=== PATIENT | female | born 1985 | race Caucasian/White ===

== ENCOUNTER 2023-08-10 15:36 | Emergency (ER) | payer OTHER, SELFPAY ==
[2023-08-10 15:41] VITALS: BP 143/94; PULSE 95; TEMP 37.2; O2SAT 98; BMI 43.3
--- NOTE | 2023-08-10 15:49 | CT_ITS ---
[address] [address] Patient Name: MORRIS TAN MRN: [id number] date: 1985 Sex: F Assigned Patient Location: ER Current Patient Location: Accession/Order Number: [id number] Exam Date: 08/10/2023 16:25 Report Date: 08/10/2023 17:01 At the request of: HANNAH MURRAY Procedure: CT abdomen pelvis w con EXAM: CT abdomen pelvis w con HISTORY: Abdominal pain, vomiting COMPARISON: None. TECHNIQUE: Axial CT imaging was performed through the abdomen and pelvis with intravenous contrast. Multiplanar reformats were performed. Dose reduction techniques were achieved by using automated exposure control and/or adjustment of mA and/or kV according to patient size and/or use of iterative reconstruction technique. FINDINGS: Lung bases: Lung bases are clear. No pleural effusion. GI upper: Small hiatal hernia. Circumferential wall thickening of the pyloric antrum, representing gastritis. Liver: Normal size and contour. Gallbladder: No significant abnormality. No cholelithiasis. Biliary system: No intra or extrahepatic biliary ductal dilatation. Spleen: Normal size. Pancreas: Unremarkable. Adrenal glands: Normal adrenal glands. Kidneys/ureters: Normal contours. No hydronephrosis. No nephrolithiasis or ureterolithiasis. Vessels: No aneurysm. Lymph Nodes: Subcentimeter gastrohepatic and periportal lymph nodes. Small bowel: No wall thickening or dilatation. Colon: No wall thickening or dilatation. Appendix: No findings of appendicitis. Peritoneal cavity: No free fluid or pneumoperitoneum. Lower : Unremarkable. Bones: No acute bony abnormality. Soft tissues: No acute finding. Additional findings: None. CT/CT abdomen pelvis w con IMPRESSION: Circumferential wall thickening of the pyloric antrum, representing gastritis. Correlation with upper GI endoscopy is recommended. Electronically authenticated by: JANET HALE Date: 08/10/2023 17:01
--- NOTE | 2023-08-10 15:49 | ED.GENADUL1 ---
HPI HPI - General Adult General Chief complaint: Abdominal Pain Stated complaint: Abdominal Pain, Nausea/Vomiting Time Seen by Provider: 08/10/23 15:40 Source: patient Mode of arrival: walk-in History of Present Illness HPI narrative: Patient is a 38-year-old female who presents to the emergency department for 2-day history of vomiting and diffuse abdominal pain. She states she has not been able to keep anything down. She denies fevers, upper respiratory symptoms, diarrhea. No sick contacts in the home. She denies any history of acid reflux, ulcers or previous abdominal surgeries. She states she feels in burning feeling in her throat from vomiting. No urinary symptoms. Related Data Home Medications ?Medication ?Instructions ?Recorded ?Confirmed aripiprazole 5 mg tablet 5 mg PO DAILY 08/10/23 08/10/23 cariprazine 4.5 mg capsule 4.5 mg PO DAILY 08/10/23 08/10/23 (Vraylar) dextromethorphan IR 45 1 tab PO BID 08/10/23 08/10/23 mg-bupropion ER 105 mg biphasic tablet (Auvelity) mirtazapine 45 mg tablet 45 mg PO QPM 08/10/23 08/10/23 Previous Rx's ?Medication ?Instructions ?Recorded ondansetron 4 mg disintegrating 4 mg PO Q6H PRN nausea and 08/10/23 tablet vomiting #12 tabs pantoprazole 40 mg tablet,delayed 40 mg PO DAILY #7 tabs 08/10/23 release (Protonix) sucralfate 1 gram tablet (Carafate) 1 g PO Q6H PRN abdominal pain #12 08/10/23 tabs Allergies Allergy/AdvReac Type Severity Reaction Status Date / Time cefaclor [From Ceclor] Allergy Severe Unknown Verified 08/10/23 15:44 duloxetine [From Cymbalta] Allergy Severe Unknown Verified 08/10/23 15:44 Opioid HPI Opioid Management Most Recent Opioid Data: Ur Phencyclidine Scrn Negative (NEGATIVE) 08/10/23 15:50 Review of Systems ROS Constitutional Denies: fever or chills Ears, nose, mouth, and throat Denies: throat pain or nasal congestion Respiratory Denies: shortness of breath Gastrointestinal Reports: abdominal pain, nausea and vomiting; Denies: diarrhea Musculoskeletal Denies: back pain Integumentary/Breast Denies: rash Neurological Denies: headache Hematologic/Lymphatic Denies: easy bruising or easy bleeding Exam Narrative Exam Narrative: Gen.: Awake, alert, in no distress Head: Normocephalic, atraumatic ENT: Moist mucous membranes Respiratory: No respiratory distress, lungs clear bilaterally Cardio: Regular rate and rhythm Gastrointestinal: Abdomen is soft, nondistended and Diffusely mildly tender to palpation with no guarding or rebound Extremities: Moves extremities equally Psych: Normal mood and affect Neuro: No focal neuro deficit Skin: Warm, dry, intact Constitutional Vital Signs, click to edit/add: Last Vital Signs Temp 98.9 F 08/10/23 15:41 Pulse 82 08/10/23 17:26 Resp 16 08/10/23 17:26 BP 140/90 08/10/23 17:26 Pulse Ox 100 08/10/23 17:26 O2 Del Method Room Air 08/10/23 16:40 Course Vital Signs Vital signs: Vital Signs Temperature 98.9 F 08/10/23 15:41 Pulse Rate 95 H 08/10/23 15:41 Respiratory Rate 18 08/10/23 15:41 Blood Pressure 143/94 H 08/10/23 15:41 Pulse Oximetry 98 08/10/23 15:41 Oxygen Delivery Method Room Air 08/10/23 15:41 Temperature 98.9 F 08/10/23 15:41 Pulse Rate 82 08/10/23 17:26 Respiratory Rate 16 08/10/23 17:26 Blood Pressure 140/90 08/10/23 17:26 Pulse Oximetry 100 08/10/23 17:26 Oxygen Delivery Method Room Air 08/10/23 16:40 Medical Decision Making MDM Narrative Medical decision making narrative: Medicated with IV fluids, Zofran, Protonix. She had improvement of symptoms. She had no episodes of emesis in the ER. She was noted to have leukocytosis on lab work and hypokalemia with potassium of 2.8. She tolerated oral potassium with no difficulty. CT shows gastritis with no other acute process. Patient is discharged home on Carafate, Protonix and Zofran. PCP referral given and work note provided. She states she feels better. She was encouraged to follow clear liquid diet, occasional crackers. Follow-up with PCP and return to the ER if symptoms change or worsen. Vital signs are stable and abdomen is soft and benign at discharge SUPERVISED APC VISIT, PHYSICIAN ATTESTATION: Based on the medical record the care appears appropriate. ? Medical Records Medical records reviewed: Yes I reviewed the patient's medical records Lab Data Lab results reviewed: Yes I reviewed the patient's lab results Labs: Lab Results 08/10/23 08/10/23 Range/Units 15:47 15:50 WBC 16.7 H (4.0-11.0) 10^3/uL RBC 5.34 (4.20-5.40) 10^6/uL Hgb 16.3 H (12.0-16.0) g/dL Hct 48.2 H (36.0-48.0) % MCV 90.3 (81.0-99.0) fL MCH 30.5 (26.7-34.0) pg MCHC 33.8 (29.9-35.2) g/dL RDW 12.4 (11.0-15.0) % Plt Count 392 (150-450) 10^3/uL MPV 9.9 (9.5-13.5) fL Seg Neuts % (Manual) 60.0 Band Neutrophils % 1.0 (0-5) % Lymphocytes % (Manual) 34.0 (20.5-60.0) % Monocytes % (Manual) 4.0 (1.7-12.0) % Eosinophils % (Manual) 0.0 L (0.9-7.0) % Basophils % (Manual) 1.0 (0.2-2.0) % Neutrophils # (Manual) 10.02 H (1.4-6.5) 10^3/uL Band Neutrophils # 0.2 (0.0-0.3) 10^3/uL Lymphocytes # (Manual) 5.67 H (1.20-3.80) 10^3/uL Monocytes # (Manual) 0.66 (0.30-0.80) 10^3/uL Eosinophils # (Manual) 0.00 (0.00-0.70) 10^3/uL Basophils # (Manual) 0.16 H (0.00-0.10) 10^3/uL Sodium 137 (136-145) mmol/L Potassium 2.8 L* (3.5-5.1) mmol/L Chloride 98 (98-107) mmol/L Carbon Dioxide 32.9 H (21.0-32.0) mmol/L Anion Gap 8.9 BUN 11.0 (7.0-18.0) mg/dL Creatinine 1.10 H (0.55-1.02) mg/dL Est GFR ( Amer) >60 (>=60) Est GFR (Non-Af Amer) 55 L (>=60) BUN/Creatinine Ratio 10.0 Glucose 99 (74-106) mg/dL Lactate 1.7 (0.4-2.0) mmol/L Calcium 9.8 (8.5-10.1) mg/dL Total Bilirubin 0.8 (0.2-1.0) mg/dL AST 39 H (15-37) U/L ALT 78 H (14-59) U/L Alkaline Phosphatase 116 (46-116) U/L Total Protein 8.7 H (6.4-8.2) g/dL Albumin 4.2 (3.4-5.0) g/dL Globulin 4.5 g/dL Albumin/Globulin Ratio 0.9 Lipase 57.0 (16.0-77.0) U/L Serum HCG, Qual Negative (NEGATIVE) Urine Color Dk. orange (YELLOW) Urine Clarity Sl cloudy (CLEAR) Urine pH 6.0 (5.0-9.0) Ur Specific [place] >=1.030 A (1.005-1.025) Urine Protein 100 A (NEG/TRACE) mg/dL Urine Glucose (UA) Negative (NEGATIVE) mg/dL Urine Ketones Trace A (NEGATIVE) mg/dL Urine Occult Blood Trace-i (NEGATIVE) Urine Nitrite Negative (NEGATIVE) Urine Bilirubin Small A (NEGATIVE) Urine Urobilinogen 1.0 (0.2-1.0) EU/dL Ur Leukocyte Esterase Negative (NEGATIVE) Urine RBC 2-5 A (0-2) #/HPF Urine WBC 2-5 A (NONE SEEN) #/HPF Ur Squamous Epith Cells Few A (NONE/RARE) #/LPF Urine Crystals None seen (None Seen) #/HPF Urine Bacteria Trace A (NONE SEEN) #/HPF Urine Casts None seen (NONE SEEN) #/LPF Urine Mucus Moderate A (NONE SEEN) Ur Culture Indicated? No Urine Opiates Screen Negative (NEGATIVE) Ur Buprenorphine Scrn Negative (NEGATIVE) Ur Oxycodone Screen Negative (NEGATIVE) Urine Methadone Screen Negative (NEGATIVE) Ur Barbiturates Screen Negative (NEGATIVE) U Tricyclic Antidepress Negative (NEGATIVE) Ur Phencyclidine Scrn Negative (NEGATIVE) Ur Amphetamines Screen Negative (NEGATIVE) U Methamphetamines Scrn Negative (NEGATIVE) U Benzodiazepines Scrn Negative (NEGATIVE) Urine Cocaine Screen Negative (NEGATIVE) U Cannabinoids Screen Positive A (NEGATIVE) Imaging Data CT scan - abdomen: Attestation: I have reviewed the pertinent imaging results. Radiologist's impression: ITS Impressions Abdomen/Pelvis CT 08/10/23 15:49 IMPRESSION: Circumferential wall thickening of the pyloric antrum, representing gastritis. Correlation with upper GI endoscopy is recommended. Electronically authenticated by: JANET HALE Date: 08/10/2023 17:01 Discharge Plan Discharge Stand Alone Forms: Portal Instructions Chief Complaint: Abdominal Pain Clinical Impression: Gastritis, Abdominal pain, Nausea & vomiting, Acute hypokalemia Patient Disposition: Home, Self-Care Time of Disposition Decision: 17:23 Condition: Good Prescriptions / Home Meds: New sucralfate [Carafate] 1 gram tablet 1 g PO Q6H PRN (Reason: abdominal pain) Qty: 12 0RF pantoprazole [Protonix] 40 mg tablet,delayed release (DR/EC) 40 mg PO DAILY Qty: 7 0RF ondansetron 4 mg tablet,disintegrating 4 mg PO Q6H PRN (Reason: nausea and vomiting) Qty: 12 0RF No Action aripiprazole 5 mg tablet 5 mg PO DAILY Vraylar 4.5 mg capsule 4.5 mg PO DAILY Auvelity 45-105 mg tablet, IR and ER, biphasic 1 tab PO BID mirtazapine 45 mg tablet 45 mg PO QPM Print Language: Hong Konger Instructions: Gastritis (ED) Referrals: Physician,Non-Staff, MD [Primary Care Provider] - 1 week
[2023-08-10] MEDS: ONDANSETRON PF 4 MG/2 ML VIAL IV (15:53)
[2023-08-10] MEDS: 0.9 % SODIUM CHLORIDE 1,000 ML 999 ML IV (15:53)
[2023-08-10 16:05] LABS: Hematocrit 48.2 % (36.0-48.0); Hemoglobin 16.3 g/dL (12.0-16.0); Mean Corpuscular HGB Conc 33.8 g/dL (29.9-35.2); Mean Corpuscular Hemoglobin 30.5 pg (26.7-34.0); Mean Corpuscular Volume 90.3 fL (81.0-99.0); Mean Platelet Volume 9.9 fL (9.5-13.5); Platelet Count 392 10^3/uL (150-450); Red Blood Count 5.34 10^6/uL (4.20-5.40); Red Cell Distribution Width 12.4 % (11.0-15.0); White Blood Count 16.7 10^3/uL (4.0-11.0)
[2023-08-10 16:05] LABS: Bilirubin Urine SMALL (NEGATIVE); Blood Urine TRACE-I (NEGATIVE); Clarity Urine SL CLOUDY (CLEAR); Color Urine DK. ORANGE (YELLOW); Glucose Urine UA NEGATIVE (NEGATIVE); Ketones Urine TRACE mg/dL (NEGATIVE); Leukocyte Esterase Urine NEGATIVE (NEGATIVE); Nitrite Urine NEGATIVE (NEGATIVE); Protein Urine 100 mg/dL (NEG/TRACE); Specific Gravity Urine >=1.030 (1.005-1.025)
[2023-08-10 16:07] LABS: Urine Microscopic Indicated YES
[2023-08-10] MEDS: PANTOPRAZOLE SODIUM 40 MG VIAL IV (16:10)
[2023-08-10 16:13] LABS: Bacteria Urine TRACE #/HPF (NONE SEEN); Cast Seen? NONE SEEN #/LPF (NONE SEEN); Crystals Seen? None Seen #/HPF (None Seen); Mucus Urine MODERATE (NONE SEEN); Squamous Epithelial Cell Urine FEW #/LPF (NONE/RARE); Urine Culture Indicated NO
[2023-08-10 16:14] LABS: HCG Qualitative NEGATIVE (NEGATIVE); Internal Control Within Normal Limits
[2023-08-10 16:20] LABS: Alanine Aminotransferase 78 U/L (14-59); Albumin Globulin Ratio 0.9; Albumin Level 4.2 g/dL (3.4-5.0); Alkaline Phosphatase 116 U/L (46-116); Anion Gap 8.9; Aspartate Amino Transferase 39 U/L (15-37); Bilirubin Total 0.8 mg/dL (0.2-1.0); Calcium 9.8 mg/dL (8.5-10.1); Carbon Dioxide 32.9 mmol/L (21.0-32.0); Chloride 98 mmol/L (98-107); Estimated GFR (African America >60 (>=60); Estimated GFR (Non-African Ame 55 (>=60); Globulin 4.5 g/dL; Glucose 99 mg/dL (74-106); Sodium 137 mmol/L (136-145); Total Protein 8.7 g/dL (6.4-8.2)
[2023-08-10 16:23] LABS: Lactate/Lactic Acid 1.7 mmol/L (0.4-2.0)
[2023-08-10 16:27] LABS: Potassium 2.8 mmol/L (3.5-5.1)
[2023-08-10 16:36] LABS: Segmented Neut Absolute Manual 10.02 10^3/uL (1.4-6.5)
[2023-08-10 16:37] LABS: Band Neutrophils Absolute 0.2 10^3/uL (0.0-0.3); Basophils Abs Manual 0.16 10^3/uL (0.00-0.10); Lymphocytes Absolute Manual 5.67 10^3/uL (1.20-3.80); Monocytes Absolute Manual 0.66 10^3/uL (0.30-0.80)
[2023-08-10 16:39] VITALS: BP 146/89; PULSE 80; O2SAT 99
[2023-08-10 16:40] VITALS: O2SAT 99
--- NOTE | 2023-08-10 16:40 | PC.NURSE ---
no vomiting while in EE at this time, call light in reach
[2023-08-10 16:59] LABS: Amphetamine Screen Urine NEGATIVE (NEGATIVE); Barbiturates Screen Urine NEGATIVE (NEGATIVE); Benzodiazepines Screen Urine NEGATIVE (NEGATIVE); Buprenorphine Screen Urine NEGATIVE (NEGATIVE); Cannabinoid Screen Urine POSITIVE (NEGATIVE); Cocaine Screen Urine NEGATIVE (NEGATIVE); Methadone Screen Urine NEGATIVE (NEGATIVE); Methamphetamines Screen Urine NEGATIVE (NEGATIVE); Opiate Screen Urine NEGATIVE (NEGATIVE); Oxycodone Screen Urine NEGATIVE (NEGATIVE); Phencyclidine Screen Urine NEGATIVE (NEGATIVE); Tricyclic Antidepressant Urine NEGATIVE (NEGATIVE)
[2023-08-10] MEDS: POTASSIUM BICARBONATE/CIT 25 MEQ TABLET EFF 50 MEQ PO (17:02)
[2023-08-10 17:26] VITALS: BP 140/90; PULSE 82; O2SAT 100
== END 2023-08-10 17:34 | disposition home or self-care (01) ==
PROVIDERS: Physician Assistant; Emergency Provider Emergency Medicine Emergency Medical Services
DX: K29.70 Gastritis, unspecified, without bleeding (principal); E87.6 Hypokalemia; R11.2 Nausea with vomiting, unspecified; R10.9 Unspecified abdominal pain
CPT/HCPCS: 36415; 74177; 80053; 80307; 81001; 83605; 83690; 84703; 85007; 85027; 96361; 96374; 96375; 99285; J2405; Q9967

== ENCOUNTER 2024-03-03 19:54 | Emergency (ER) | payer BC, SELFPAY ==
[2024-03-03 19:58] VITALS: BP 174/106; PULSE 93; TEMP 36.7; O2SAT 100; BMI 44.9
[2024-03-03 20:09] VITALS: O2SAT 100
--- NOTE | 2024-03-03 20:25 | ED.GENADUL1 ---
HPI HPI - General Adult General Chief complaint: Upper Respiratory Infection Stated complaint: Flu like syptoms Time Seen by Provider: 03/03/24 19:56 Source: patient Mode of arrival: walk-in Limitations: no limitations History of Present Illness HPI narrative: 38-year-old female present here with chief complaint of persistent upper respiratory infection. Patient states she started having symptoms this past Monday felt better on Monday and symptoms returned on Monday and she now has continued cough congestion. She is a smoker. She is otherwise healthy. She states she was unable to go into work this evening due to her illness. Lung sounds are clear and diminished. She is currently afebrile. Related Data Home Medications ?Medication ?Instructions ?Recorded ?Confirmed aripiprazole 5 mg tablet 5 mg PO DAILY 08/10/23 08/10/23 cariprazine 4.5 mg capsule 4.5 mg PO DAILY 08/10/23 08/10/23 (Vraylar) dextromethorphan IR 45 1 tab PO BID 08/10/23 08/10/23 mg-bupropion ER 105 mg biphasic tablet (Auvelity) mirtazapine 45 mg tablet 45 mg PO QPM 08/10/23 08/10/23 Previous Rx's ?Medication ?Instructions ?Recorded ondansetron 4 mg disintegrating 4 mg PO Q6H PRN nausea and 08/10/23 tablet vomiting #12 tabs pantoprazole 40 mg tablet,delayed 40 mg PO DAILY #7 tabs 08/10/23 release (Protonix) sucralfate 1 gram tablet (Carafate) 1 g PO Q6H PRN abdominal pain #12 08/10/23 tabs azithromycin 250 mg tablet See Rx Instructions PO .COMPLEX #6 03/03/24 (Zithromax Z-Aquiles) tabs benzonatate 200 mg capsule 200 mg PO BID PRN cough #20 caps 03/03/24 Allergies Allergy/AdvReac Type Severity Reaction Status Date / Time cefaclor (From Ceclor) Allergy Severe Unknown Verified 03/03/24 20:05 duloxetine (From Cymbalta) Allergy Severe Unknown Verified 03/03/24 20:05 Opioid HPI Opioid Management Most Recent Opioid Data: Ur Phencyclidine Scrn Negative (NEGATIVE) 08/10/23 15:50 08/10/23 Review of Systems ROS Narrative All Systems are negative except as noted/marked.All systems reviewed and otherwise negative [facility] Social History Little interest or pleasure in doing things: not at all Feeling down, depressed, or hopeless: not at all Exam Narrative Exam Narrative: All Systems are negative except as noted/marked.All systems reviewed and otherwise negative Nurses note and vital signs reviewed and patient is not hypoxic. General: The patient appears well and in no apparent distress. Patient is resting comfortably on cart. Skin: Warm, dry, no pallor noted. There is no rash noted. Head: Normocephalic, atraumatic Eye: Normal conjunctiva, no drainage, EOMI. PERRL Ears, Nose, Mouth, and Throat: oral mucosa is moist. Nares patent. Mouth without vesicles. Ear canals patent. Tm's without Erythema Cardiovascular: Regular Rate and Rhythm Respiratory: dry non productive cough, Patient is in no distress, no accessory muscle use, lungs are clear to auscultation, no wheezing, rales or rhonchi Back: non-tender, no CVA tenderness bilaterally to percussion. GI: Normal bowel sounds, no tenderness to palpation, no masses appreciated. No rebound, guarding, or rigidity noted. Musculoskeletal: The patient has no evidence of calf tenderness, no pitting edema, symmetrical pulses noted bilaterally Neurological: A&O x4, normal speech Psychiatric: Cooperative Constitutional Vital Signs, click to edit/add: Last Vital Signs Temp 98.0 F 03/03/24 19:58 Pulse 93 H 03/03/24 19:58 Resp 18 03/03/24 19:58 BP 174/106 H 03/03/24 19:58 Pulse Ox 100 03/03/24 20:09 O2 Del Method Room Air 03/03/24 20:09 Course Vital Signs Vital signs: Vital Signs Temperature 98.0 F 03/03/24 19:58 Pulse Rate 93 H 03/03/24 19:58 Respiratory Rate 18 03/03/24 19:58 Blood Pressure 174/106 H 03/03/24 19:58 Pulse Oximetry 100 03/03/24 19:58 Oxygen Delivery Method Room Air 03/03/24 19:58 Temperature 98.0 F 03/03/24 19:58 Pulse Rate 93 H 03/03/24 19:58 Respiratory Rate 18 03/03/24 19:58 Blood Pressure 174/106 H 03/03/24 19:58 Pulse Oximetry 100 03/03/24 20:09 Oxygen Delivery Method Room Air 03/03/24 20:09 Medical Decision Making [facility] Narrative Medical decision making narrative: 38-year-old female present here with chief complaint of persistent upper respiratory infection. Patient states she started having symptoms this past Monday felt better on Monday and symptoms returned on Monday and she now has continued cough congestion. She is a smoker. She is otherwise healthy. She states she was unable to go into work this evening due to her illness. Lung sounds are clear and diminished. She is currently afebrile. Complaint upper respiratory symptoms she has had the symptoms for the last week. She is a smoker. Patient was discharged home prescription of Z-Aquiles and also Tessalon Perles. Medicated here with Decadron. Encouraged follow-up primary care physician diagnosis URI. Rapid flu and covid are negative. Differential Diagnosis Differential Diagnosis: COVID, flu, uri Medical Records Medical records reviewed: Yes I reviewed the patient's medical records Lab Data Lab results reviewed: Yes I reviewed the patient's lab results Labs: Lab Results 03/03/24 Range/Units 20:05 Influenza Type A Ag Negative Influenza Type B Ag Negative SARS-CoV-2 Ag (CV2AG) Negative (NEGATIVE) Discharge Plan Discharge Chief Complaint: Upper Respiratory Infection Clinical Impression: Upper respiratory infection Patient Disposition: Home, Self-Care Time of Disposition Decision: 20:29 Condition: Good Prescriptions / Home Meds: New benzonatate 200 mg capsule 200 mg PO BID PRN (Reason: cough) Qty: 20 0RF azithromycin [Zithromax Z-Aquiles] 250 mg tablet See Rx Instructions .ROUTE .COMPLEX Qty: 6 0RF Rx Instructions: For 250 mg dose pack: take 500 mg today (day 1), then 250 mg for 4 days (days 2-5) No Action aripiprazole 5 mg tablet 5 mg PO DAILY Vraylar 4.5 mg capsule 4.5 mg PO DAILY Auvelity 45-105 mg tablet, IR and ER, biphasic 1 tab PO BID mirtazapine 45 mg tablet 45 mg PO QPM sucralfate [Carafate] 1 gram tablet 1 g PO Q6H PRN (Reason: abdominal pain) Qty: 12 0RF pantoprazole [Protonix] 40 mg tablet,delayed release (DR/EC) 40 mg PO DAILY Qty: 7 0RF ondansetron 4 mg tablet,disintegrating 4 mg PO Q6H PRN (Reason: nausea and vomiting) Qty: 12 0RF Print Language: Kiswahili Instructions: Upper Respiratory Infection (ED) Referrals: Physician,Non-Staff, MD [Primary Care Provider] - 1 week
[2024-03-03 20:27] LABS: Influenza Virus A Antigen Negative; Influenza Virus B Antigen Negative; Internal Control Within Normal Limits; SARS-CoV-2 Ag NEGATIVE (NEGATIVE)
[2024-03-03] MEDS: DEXAMETHASONE SOD PHOS 10 MG/ML VIAL PO (20:28)
[2024-03-03] MEDS: ONDANSETRON 4 MG RAPDIS TABLET SL (20:28)
== END 2024-03-03 20:35 | disposition home or self-care (01) ==
PROVIDERS: Physician Assistant; Emergency Provider Emergency Medicine
DX: J06.9 Acute upper respiratory infection, unspecified (principal); F17.200 Nicotine dependence, unspecified, uncomplicated
CPT/HCPCS: 87804; 87811; 99284; J1100; Q0162

== ENCOUNTER 2024-05-22 22:34 | Emergency (ER) | payer BC, SELFPAY ==
--- OUTSIDE RECORDS SUMMARY | 2024-05-22 22:41 | XMS_ITS | CCD ---
Author Organization [facility] Inform ion Partnership [facility] Care Team Providers Care Development Scientist Name Role Phone PAVLOCK, MAX L Primary Care Unavailable MAEVE DIEGO Attending Unavailable PAVLOCK, MAX L Primary Care Unavailable JOSUÉ HECTOR Attending Unavailable KI PALAFOX Referring Unavailable PAVLOCK, MAX L Primary Care Unavailable PAVLOCK, MAX L Primary Care Unavailable JOSUÉ CASTILLO Attending Unavailable BALJEET LIVINGSTON Attending Unavailable TIMBO GOODWIN Attending Unavailable JOSUÉ HECTOR Attending Unavailable IRISH WOODSON Admitting Unavailable GULSHAN ORTEGA Referring Unavailable UNKNOWN, PHYSICIAN Primary Care Unavailable BRIANNA LOPEZ Attending Unavailable Unavailable Primary Care Provider Unavailabl e Unavailable Primary Care Provider Unavailabl e DUKE, CHANNING Referring Unavailable DUKE, CHANNING Referring Unavailable DUKE, CHANNING Referring Unavailable DUKE, CHANNING Referring Unavailable ARLENE GARRETT Attending Unavailable ARLENE GARRETT Consulting Unavailable BILL LOPEZ Primary Care Unavailable ARLENE GARRETT Admitting Unavailable CLARIBEL DE LA GARZA Consulting Unavailable MISC, DR REYES Attending Unavailable MISC, DR REYES Consulting Unavailable BILL LOPEZ Primary Care Unavailable MISSana, DR REYES Admitting Unavailable Jaylen Jean Attending Unavailab Jaylen Christensen Admitting Unavailab le NO FAMILY, PHYSICIAN Primary Care Unavailable Allergies Allergy Classification Reported Allergen(s) Allergy Type Date of Onset Reaction(s) Facility Cephalosporins (antibiotic) (1 source) Cefaclor Drug Allergy 08-03-2017 [facility] DULoxetine (1 source) DULoxetine Drug Allergy 08-03-2017 [facility] (2 sources) Acetaminophen / HYDROcodone Drug Allergy 11-10-2012 [facility] (2 sources) Cefaclor Drug Allergy 11-10-2012 [facility] (2 sources) DULoxetine Drug Allergy 11-10-2012 [facility] (3 sources) Cefaclor Drug Allergy 08-03-2017 [place], [place] (3 sources) DULoxetine Drug Allergy 08-03-2017 [place], [place] Medications Current Medications Medication Drug Class(es) Dates Sig (Normalized) Sig (Original) acetaminophen 500 mg oral tablet (4 sources) Start: 06-04-2018 take 2 tablets by mouth every eight hours as needed for pain acetaminophen (TYLENOL) 500 MG tablet Take 2 tablets by mouth every 8 hours as needed for Pain 30 tablet 0 06/04/2018 Active 24 hr buPROPion hydrochloride 300 mg extended release oral tablet (4 sources) Aminoketone buPROPion (WELLBUTRIN XL) 300 MG extended release tablet Take 300 mg by mouth 0 Active ibuprofen 800 mg oral tablet (8 sources) Nonsteroidal Anti-inflammatory Drug Start: 06-04-2018 take 1 tablet by mouth every eight hours as needed for pain ibuprofen (ADVIL;MOTRIN) 800 MG tablet Take 1 tablet by mouth every 8 hours as needed for Pain 30 tablet 0 06/10/2018 Active lidocaine 0.005 mg/mg topical gel (4 sources) Antiarrhythmic, Amide Local Anesthetic Start: 06-04-2018 Lidocaine 0.5 % GEL Apply 1 Film topically 2 times daily as needed (For painful vulvar rash. Use smallest amount possible to prevent systemic toxicity) 1 Tube 0 06/04/2018 Active ondansetron 4 mg disintegrating oral tablet (8 sources) Serotonin-3 Receptor Antagonist Start: 06-10-2018 take 1 tablet by mouth every eight hours as needed for nausea ondansetron (ZOFRAN ODT) 4 MG disintegrating tablet Take 1 tablet by mouth every 8 hours as needed for Nausea 10 tablet 0 06/10/2018 Active Start: 03-21-2018 take 1 tablet by marky th every eight hours as needed for nausea ondansetron (ZOFRAN) 4 MG tablet Take 1 tablet by mouth every 8 hours as needed for Nausea 20 tablet 0 03/21/2018 Active Problems Active Problems Problem Classification Problem Date Documented Da te Episodic/Chronic Gastroduodenal ulcer (except hemorrhage) (1 source) Peptic ulcer, site unspecified, unspecified as acute or chronic, without hemorrhage or perforation; Translations: [PU SITE UNS UNS AC/CHR NO HEM/PERF] Onset: 10-16-2020 Chronic Other aftercare (4 sources) Other penitentiary (current) drug therapy; Translations: [OTH PRISON CURRENT DRUG THERAPY] Onset: 08-13-2021 Episodic Substance-related disorders (1 source) Nicotine dependence, cigarettes, uncomplicated; Translations: [NICOTINE DEPEND CIGARETTES UNCOMP] Onset: 10-16-2020 Chronic Past or Other Problems Problem Classification Problem Date Documented Da te Episodic/Chronic Abdominal pain (3 sources) Unspecified abdominal pain; Translations: [UNSPECIFIED ABDOMINAL PAIN] Onset: 10-14-2020 Episodic Results Test Name Value Interpretation Reference Range Facil ity CBC AUTO DIFFon 08-13-2021 BASO # 0.0 103/ul Normal 0.0-0.1 [facility] Comment on above: Performed By: #### C BC #### [facility] [address] [place] [address] Dr. Elmer Hopkins Basophils/100 WBC (Bld) 0.5 % Normal 0.2-2.0 [facility] Comment on above: Performed By: #### C BC #### [facility] [address] [place] [address] Dr. Elmer Hopkins EO # 0.7 103/ul Normal 0.0-0.7 [facility] Comment on above: Performed By: #### C BC #### [facility] [address] [place] [address] Dr. Elmer Hopkins Eosinophils/100 WBC (Bld) 9.4 % Critically high 0.9-7.0 [facility] Comment on above: Performed By: #### C BC #### [facility] [address] [place] [address] Dr. Elmer Hopkins Erythrocyte distribution width (RBC) [Ratio] 12.3 % Normal 11.0-15.0 [facility] Comment on above: Performed By: #### C BC #### [facility] [address] [address] [address] Elmer Hopkins Hematocrit (Bld) [Volume fraction] 45.0 % Normal 36.0-48.0 [facility] Comment on above: Performed By: #### C BC #### [facility] [address] [place] [address] Dr. Elmer Hopkins Hemoglobin (Bld) [Mass/Vol] 14.8 g/dL Normal 12.0-16.0 [facility] Comment on above: Performed By: #### C BC #### [facility] [address] [place] [address] Dr. Elmer Hopkins IG # 0.03 10e3/ul Normal 0.00-0.03 [facility] Comment on above: Performed By: #### C BC #### [facility] [address] [place] [address] Dr. Elmer Hopkins IG % 0.4 % Normal 0.0-0.5 [facility] Comment on above: Performed By: #### C BC #### [facility] [address] [place] [address] Dr. Elmer Hopkins LYMPH # 3.0 103/ul Normal 1.2-3.8 [facility] Comment on above: Performed By: #### C BC #### [facility] [address] [place] [address] Dr. Elmer Hopkins Lymphocytes/100 WBC (Bld) 37.3 % Normal 20.5-60.0 [facility] Comment on above: Performed By: #### C BC #### [facility] [address] [place] [address] Dr. Elmer Hopkins MANUAL DIFF REQ NO Normal [facility] Comment on above: Performed By: #### C BC #### [facility] [address] [place] [address] Dr. Elmer Hopkins MCH (RBC) [Entitic mass] 31.5 pg Normal 26.7-34.0 [facility] Comment on above: Performed By: #### C BC #### [facility] [address] [place] [address] Dr. Elmer Hopkins MCHC (RBC) [Mass/Vol] 32.9 g/dL Normal 29.9-35.2 [facility] Comment on above: Performed By: #### C BC #### [facility] [address] [place] [address] Dr. Elmer Hopkins MCV (RBC) [Entitic vol] 95.7 fL Normal 81.0-99.0 [facility] Comment on above: Performed By: #### C BC #### [facility] [address] [place] [address] Dr. Elmer Hopkins MONO # 0.7 103/ul Normal 0.3-0.8 [facility] Comment on above: Performed By: #### C BC #### [facility] [address] [place] [address] Dr. Elmer Hopkins Monocytes/100 WBC (Bld) 9.0 % Normal 1.7-12.0 [facility] Comment on above: Performed By: #### C BC #### [facility] [address] [place] [address] Dr. Elmer Hopkins NEUT # 3.4 103/ul Normal 1.4-6.5 [facility] Comment on above: Performed By: #### C BC #### [facility] [address] [place] [address] Dr. Elmer Hopkins Neutrophils/100 WBC (Bld) 43.4 % Normal 43.0-75.0 [facility] Comment on above: Performed By: #### C BC #### [facility] [address] [place] [address] Dr. Elmer Hopkins Platelet mean volume (Bld) [Entitic vol] 9.4 fL Critically low 9.5-13.5 [facility] Comment on above: Performed By: #### C BC #### [facility] [address] [place] [address] Dr. Elmer Hopkins PLT 329 103/ul Normal 150-450 [facility] Comment on above: Performed By: #### C BC #### [facility] [address] [place] [address] Dr. Elmer Hopkins RBC 4.70 106/ul Normal 4.20-5.40 [facility] Comment on above: Performed By: #### C BC #### [facility] [address] [place] [address] Dr. Elmer Hopkins WBC 7.9 103/ul Normal 4.0-11.0 [facility] Comment on above: Performed By: #### C BC #### [facility] [address] [address] [address] Elmer Hopkins GLYCOHEMOGLOBIN A1Con 2021 ADA RECOMMENDATION SEE BELOW Normal [facility] Comment on above: Result Comment: ADA RECOMMENDED LIMIT 4.0 - 6.0 ADA THERAPEUTIC TARGET < 7.0 ACTION SUGGESTED > 7.0 Performed By: #### A 1C #### [facility] [address] [address] [address] Elmer Hopkins Glucose [Mass/Vol] 105 mg/dL Normal [facility] Comment on above: Performed By: #### A 1C #### [facility] [address] [place] [address] Dr. Elmer Hopkins HbA1c (Bld) [Mass fraction] 5.3 % Normal 4.5-6.2 [facility] Comment on above: Performed By: #### A 1C #### [facility] [address] [place] [address] Dr. Elmer Hopkins LIPID PROFILEon 08-13-2021 CHOL-HDL RATIO NORM SEE BELOW Normal [facility] Comment on above: Result Comment: 3.3 - 4.4 LOW RISK 4.4 - 7.1 AVERAGE RISK 7.1 - 11.0 MODERATE RISK >11.0 HIGH RISK Performed By: #### C MP, TSH, LIPID #### [facility] [address] [place] [address] Dr. Elmer Hopkins Cholesterol [Mass/Vol] 185 mg/dL Normal <=200 [facility] Comment on above: Performed By: #### C MP, TSH, LIPID #### [facility] [address] [place] [address] Dr. Elmer Hopkins Cholesterol in HDL [Mass/Vol] 45 mg/dL Normal 40-60 [facility] Comment on above: Performed By: #### C MP, TSH, LIPID #### [facility] [address] [place] [address] Dr. Elmer Hopkins Cholesterol in LDL [Mass/Vol] 120.4 mg/dL Normal [facility] Comment on above: Performed By: #### C MP, TSH, LIPID #### [facility] [address] [address] [address] Elmer Hopkins Cholesterol.total/Ch olesterol in HDL [Mass ratio] 4.1 {ratio} Normal [facility] Comment on above: Performed By: #### C MP, TSH, LIPID #### [facility] [address] [address] [address] Elmer Hopkins HDL NORMAL > or = 60 mg/dl - LOW CARDIOVASCULAR RISK <40 mg/dl - HIGH CARDIOVASCULAR RISK Normal [facility] Comment on above: Performed By: #### C MP, TSH, LIPID #### [facility] [address] [place] [address] Dr. Elmer Hopkins LDL CALC NORMAL SEE BELOW Normal [facility] Comment on above: Result Comment: <100 mg/dl OPTIMAL 100 - 129 mg/dl NEAR OR ABOVE OPTIMAL 130 - 159 mg/dl BORDERLINE HIGH 160 - 189 mg/dl HIGH >190 mg/dl VERY HIGH Performed By: #### C MP, TSH, LIPID #### [facility] [address] [address] [address] Elmer Hopkins Triglyceride [Mass/Vol] 98 mg/dL Normal <=150 [facility] Comment on above: Performed By: #### C MP, TSH, LIPID #### [facility] [address] [place] [address] Dr. Elmer Hopkins VLDL CALC 19.6 mg/dL Normal [facility] Comment on above: Performed By: #### C MP, TSH, LIPID #### [facility] [address] [place] [address] Dr. Elmer Hopkins PROF 14(COMP METB)on 022 Albumin [Mass/Vol] 3.3 g/dL Critically low 3.4-5.0 [facility] Comment on above: Performed By: #### C MP, TSH, LIPID #### [facility] [address] [place] [address] Dr. Elmer Hopkins Albumin/Globulin [Mass ratio] 0.9 {ratio} Normal [facility] Comment on above: Performed By: #### C MP, TSH, LIPID #### [facility] [address] [address] [address] Elmer Hopkins ALP [Catalytic activity/Vol] 99 U/L Normal 46-116 [facility] Comment on above: Performed By: #### C MP, TSH, LIPID #### [facility] [address] [address] [address] Elmer Hopkins ALT [Catalytic activity/Vol] 102 U/L Critically high 14-59 [facility] Comment on above: Performed By: #### C MP, TSH, LIPID #### [facility] [address] [address] [address] Elmer Hopkins Anion gap [Moles/Vol] 8.3 mmol/L Normal [facility] Comment on above: Performed By: #### C MP, TSH, LIPID #### [facility] [address] [place] [address] Dr. Elmer Hopkins AST [Catalytic activity/Vol] 49 U/L Critically high 15-37 [facility] Comment on above: Performed By: #### C MP, TSH, LIPID #### [facility] [address] [address] [address] Elmer Hopkins Bilirubin [Mass/Vol] 0.3 mg/dL Normal 0.2-1.0 [facility] Comment on above: Performed By: #### C MP, TSH, LIPID #### [facility] [address] [address] [address] Elmer Hopkins Calcium [Mass/Vol] 8.7 mg/dL Normal 8.5-10.1 [facility] Comment on above: Performed By: #### C MP, TSH, LIPID #### [facility] [address] [address] [address] Elmer Hopkins Chloride [Moles/Vol] 107 mmol/L Normal 98-107 [facility] Comment on above: Performed By: #### C MP, TSH, LIPID #### [facility] [address] [address] [address] Elmer Hopkins CO2 [Moles/Vol] 30.7 mmol/L Normal 21.0-32.0 [facility] Comment on above: Performed By: #### C MP, TSH, LIPID #### [facility] [address] [address] [address] Elmer Hopkins Creatinine [Mass/Vol] 0.94 mg/dL Normal 0.55-1.02 [facility] Comment on above: Performed By: #### C MP, TSH, LIPID #### [facility] [address] [address] [address] Elmer Hopkins EGFR-AF TURKS AND CAICOS ISLANDER >60 Normal >=60 [facility] Comment on above: Performed By: #### C MP, TSH, LIPID #### [facility] [address] [address] [address] Elmer Hopkins EGFR-NON AF TURKS AND CAICOS ISLANDER >60 Normal >=60 [facility] Comment on above: Performed By: #### C MP, TSH, LIPID #### [facility] [address] [address] [address] Elmer Hopkins Globulin (S) [Mass/Vol] 3.8 g/dL Normal [facility] Comment on above: Performed By: #### C MP, TSH, LIPID #### [facility] [address] [address] [address] lEmer Hopkins Glucose [Mass/Vol] 125 mg/dL Critically high 74-106 [facility] Comment on above: Performed By: #### C MP, TSH, LIPID #### [facility] [address] [address] [address] Elmer Hopkins Potassium [Moles/Vol] 4.0 mmol/L Normal 3.5-5.1 [facility] Comment on above: Performed By: #### C MP, TSH, LIPID #### [facility] [address] [address] [address] Elmer Hopkins Protein [Mass/Vol] 7.1 g/dL Normal 6.4-8.2 [facility] Comment on above: Performed By: #### C MP, TSH, LIPID #### [facility] [address] [address] [address] Elmer Hopkins Sodium [Moles/Vol] 142 mmol/L Normal 136-145 [facility] Comment on above: Performed By: #### C MP, TSH, LIPID #### [facility] [address] [address] [address] Elmer Hopkins Urea nitrogen [Mass/Vol] 10.0 mg/dL Normal 7.0-18.0 [facility] Comment on above: Performed By: #### C MP, TSH, LIPID #### [facility] [address] [address] [address] Elmer Hopkins Urea nitrogen/Creatinine [Mass ratio] 10.6 mg/mg Normal [facility] Comment on above: Performed By: #### C MP, TSH, LIPID #### [facility] [address] [place] [address] Dr. Elmer Hopkins TSHon 08-13-2021 TSH 2.083 uIU/mL Normal 0.358-3.740 [facility] Comment on above: Performed By: #### C MP, TSH, LIPID #### [facility] [address] [address] [address] Elmer Hopkins AMYLASEon 10-15-2020 Amylase [Catalytic activity/Vol] 59 U/L Normal 31-110 [facility] Comment on above: Performed By: #### C MADM, LIPA, KEMAR, CMP ####[facility] [address] [id number] CARDIAC STEFFI ADMITon 021 CK [Catalytic activity/Vol] 80 U/L Normal 30-135 [facility] Comment on above: Performed By: #### C MADM, LIPA, KEMAR, CMP ####[facility] [address] [place], [place] [address]Ghlwpe [place] CK.MB [Mass/Vol] ng/mL Normal <=2.37 [facility] Comment on above: Performed By: #### C MADM, LIPA, KEMAR, CMP ####[facility] [address] [id number] HSTROP <4.0 Normal 4.0-35.5 [facility] Comment on above: Result Comment: CUT- OFF POINTS HAVE BEEN ESTABLISHED BASED ON THE FOURTH UNIVERSAL DEFINITIONS OF MYOCARDIAL INFARCTION. THE UPPER REFERENCE LIMIT (URL) OF TROPONIN, DEFINED THE 99TH PERCENTILE OF cTnI DISTRIBUTION IN A REFERENCE POPULATION, HAS BEEN CONFIRMED THE DECISION THRESHOLD FOR NC DIAGNOSIS. Performed By: #### C GENESIS SUMMERS AMY, CMP ####[facility] [address] [id number] ALLI 30.0 ng/mL Normal <=61.5 [facility] Comment on above: Performed By: #### C GENESIS SUMMERS AMY, CMP ####[facility] [address] [id number] CBC AUTO DIFFon 10-15-2020 BASO # 0.1 103/ul Normal 0.0-0.1 [facility] Comment on above: Performed By: #### C BC ####[facility] [address] [place] [address] [place] Basophils/100 WBC (Bld) 0.4 % Normal 0.2-2.0 [facility] Comment on above: Performed By: #### C BC ####[facility] [address] [place] [address] [place] EO # 0.8 103/ul Critically high 0.0-0.7 [facility] Comment on above: Performed By: #### C BC ####[facility] [address] [place] [address] [place] Eosinophils/100 WBC (Bld) 6.1 % Normal 0.9-7.0 [facility] Comment on above: Performed By: #### C BC ####[facility] [address] [place], [place] [id number] Erythrocyte distribution width (RBC) [Ratio] 13.2 % Normal 11.0-15.0 [facility] Comment on above: Performed By: #### C BC ####[facility] [address] [place], [place] [id number] Hematocrit (Bld) [Volume fraction] 44.2 % Normal 36.0-48.0 [facility] Comment on above: Performed By: #### C BC ####[facility] [address] [place] Hemoglobin (Bld) [Mass/Vol] 14.8 g/dL Normal 12.0-16.0 [facility] Comment on above: Performed By: #### C BC ####[facility] [address] [place] IG # 0.05 10e3/ul Critically high 0.00-0.03 [facility] Comment on above: Performed By: #### C BC ####[facility] [address] [place] IG % 0.4 % Normal 0.0-0.5 [facility] Comment on above: Performed By: #### C BC ####[facility] [address] [place] [address] [place] LYMPH # 3.2 103/ul Normal 1.2-3.8 [facility] Comment on above: Performed By: #### C BC ####[facility] [address] [place] [address] [place] Lymphocytes/100 WBC (Bld) 24.1 % Normal 20.5-60.0 [facility] Comment on above: Performed By: #### C BC ####[facility] [address] [place] [address] [place] MANUAL DIFF REQ NO Normal [facility] Comment on above: Performed By: #### C BC ####[facility] [address] [place] MCH (RBC) [Entitic mass] 30.9 pg Normal 26.7-34.0 [facility] Comment on above: Performed By: #### C BC ####[facility] [address] [place] MCHC (RBC) [Mass/Vol] 33.5 g/dL Normal 29.9-35.2 [facility] Comment on above: Performed By: #### C BC ####[facility] [address] [place], [place] [address]Wqbcbb Karen MCV (RBC) [Entitic vol] 92.3 fL Normal 81.0-99.0 [facility] Comment on above: Performed By: #### C BC ####[facility] [address] [place], [place] [address]Ckzxvb [place] MONO # 1.0 103/ul Critically high 0.3-0.8 [facility] Comment on above: Performed By: #### C BC ####[facility] [address] [id number] Monocytes/100 WBC (Bld) 7.3 % Normal 1.7-12.0 [facility] Comment on above: Performed By: #### C BC ####[facility] [address] [place], [place] [id number] NEUT # 8.2 103/ul Critically high 1.4-6.5 [facility] Comment on above: Performed By: #### C BC ####[facility] [address] [place], [place] [id number] Neutrophils/100 WBC (Bld) 61.7 % Normal 43.0-75.0 [facility] Comment on above: Performed By: #### C BC ####[facility] [address] [place], [place] [id number] Townsend Platelet mean volume (Bld) [Entitic vol] 9.7 fL Normal 9.5-13.5 [facility] Comment on above: Performed By: #### C BC ####[facility] [id number] [place] [id number] Cary PLT 414 103/ul Normal 150-450 [facility] Comment on above: Performed By: #### C BC ####[facility] [id number] [place], [place] [id number] Cary RBC 4.79 106/ul Normal 4.20-5.40 [facility] Comment on above: Performed By: #### C BC ####[facility] [id number] [place], [place] [address]Oqulcg Karen WBC 13.3 103/ul Critically high 4.0-11.0 The [facility] Comment on above: Performed By: #### C ####[facility] [id number] [place], [place] [address] ABD/PELVIS WO CONon 10-15 CT ABD/PELVIS WO CON EXAM: CT abdomen an d Pelvis without contrast dated 10/14/2020 10:30 PM EDT HISTORY: 35 years old Female with right flank pain and right lower abdominal pain with nausea and vomiting reported. COMPARISON STUDY: Prior available dated 12/22/2018 for correlation. TECHNIQUE: Multidetector spiral CT of the abdomen and pelvis was performed from lung bases to pubic symphysis. Imaging was performed without IV contrast. Axial, coronal and sagittal multiplanar reformats were obtained from the axial data set by the technologist. Dose reduction techniques were achieved by using automated exposure control and/or adjustment of mA and/or kV according to patient size and/or use of iterative reconstruction technique. FINDINGS: Evaluation of solid organs is limited due to lack of intravenous contrast use. Lung Bases: No acute or significant lung base finding. Normal heart size. No pleural or pericardial effusion. Liver: The liver is normal in size. Subcentimeter low-attenuation lesion may represent a small cyst or hemangioma but is too small to definitively characterize. Gallbladder and Biliary Tree: Unremarkable. Spleen: Unremarkable. Adrenal Glands: Slight thickening of the adrenal gland on the left greater than right may represent a degree of hyperplasia however this is nonspecific. Kidneys: Kidneys are grossly normal without calculi or hydronephrosis. Bladder: Grossly unremarkable for degree of distention. Bowel: Mild under distention or thickening of the distal esophagus on images 6 through 14 of series 3 is appreciated however there is moderate mural thickening noted involving the distal stomach and proximal duodenum with intramural edema and surrounding inflammatory changes on images 31 through image 52 of series 3, which extends to the third portion of the duodenum on image 66. There is edema abutting the pancreas at its head, neck and uncinate process and edema abutting the gallbladder and within the gallbladder fossa. There is no definite pneumoperitoneum identified and no drainable collection, however subtle irregularity of the wall of the most proximal duodenum on image 26 through 30 of series 5 and on image 32 through 42 of series 3 cannot be entirely excluded which may represent slight ulcer formation. There is surrounding edema and inflammation noted on images 47 through 53 of series 3, and subcentimeter lymph nodes are noted, nonspecific but likely reactive. No pathologic adenopathy is appreciated. There is moderate stool throughout the colon suggesting a degree of constipation however there are mild areas of thickening or under distention of the transverse colon and at the level of the splenic flexure. There is a normal appendix without features to suggest acute appendicitis however there is fluid-filled and mildly thickened enteric bowel in the central abdomen and in the lower abdomen and pelvis. Slight thickening of the terminal ileum on images 82 through 91 of series 3 is also suggested. There are no significant focal surrounding inflammatory changes and there are no findings to suggest obstruction. A degree of mild infectious or inflammatory enterocolitis is suggested. Vasculature: The visualized abdominal aorta is normal in size and caliber. Evaluation of abdominal and pelvic vessels is limited due to lack of intravenous contrast. Pelvic Organs: 2.3 cm low-attenuation adnexal lesion on the left is nonspecific but may reflect functional change with small right follicle suggested. Pelvic organs are otherwise grossly unremarkable on CT without contrast and there is a phlebolith noted in the left pelvis. Similar findings were noted on the previous exam. Musculoskeletal: No aggressive focal bony lesions, acute fractures or dislocation. At T12-L1 there is moderate degenerative disc space height loss with sclerosis of the endplates particularly at T12 and a degree of vertebral body height loss which may represent a chronic process or compression deformity of indeterminate age. There is approximately 20% anterior vertebral body height loss and the disc space is narrowed. No significant central canal or neural foraminal encroachment via CT technique is seen. Finding is best appreciated on images 53 through 55 of series 6. Clinical correlation is suggested and if indicated consider MRI on a nonemergent basis for better characterization. Hypoplastic rib on the right at L1 is noted. Subchondral cystic and degenerative changes in the right hip/acetabular region and small sclerotic foci in the right femur and right pelvis similar to the prior. IMPRESSION: Circumferential mural thickening with intramural edema and surrounding inflammatory change involving the distal gastric wall and proximal duodenal region. A degree of underlying ulcer formation is not excluded as detailed above and correlation for gastroenteritis is recommended. Edema along the pancreas may be reactive howeve (more content not included)... Normal [facility] LIPASEon 10-15-2020 Lipase [Catalytic activity/Vol] 70.0 U/L Normal 23.0-300.0 [facility] Comment on above: Performed By: #### C ALICEM, LIPA, KEMAR, CMP ####[facility] [id number] [place], [place] [address]Yannlj Cary URon 10-15-2020 , QUAL Negative Normal NEGATIVE [facility] Comment on above: Performed By: #### P REGU #### [facility] [address] [place], [place] [address] Greyraúl Giordanoen PROF 14(COMP METB)on 021 Albumin [Mass/Vol] 4.1 g/dL Normal 3.5-5.0 [facility] Comment on above: Performed By: #### C MADM, LIPA, KEMAR, CMP #### [facility] [address] [place] [id number] Grey [place] Albumin/Globulin [Mass ratio] 1.0 {ratio} Normal [facility] Comment on above: Performed By: #### C MADM, LIPA, KEMAR, CMP #### [facility] [address] [place] [id number] Grey [place] ALP [Catalytic activity/Vol] 93 U/L Normal 38-126 [facility] Comment on above: Performed By: #### C MADM, LIPA, KEMAR, CMP #### [facility] [address] [place] [id number] Grey [place] ALT [Catalytic activity/Vol] 90 U/L Critically high 9-52 [facility] Comment on above: Performed By: #### C MADM, LIPA, KEMAR, CMP #### [facility] [address] [place] [id number] Grey [place] Anion gap [Moles/Vol] 13.8 mmol/L Normal [facility] Comment on above: Performed By: #### C MADM, LIPA, KEMAR, CMP #### [facility] [address] [place] [id number] Grey [place] AST [Catalytic activity/Vol] 37 U/L Critically high 14-36 [facility] Comment on above: Performed By: #### C GENESIS SUMMERS KEMAR, CMP #### [facility] [address] [place] [address] Grey [place] Bilirubin [Mass/Vol] 0.3 mg/dL Normal 0.2-1.3 [facility] Comment on above: Performed By: #### C GENESIS SUMMERS KEMAR, CMP #### [facility] [address] [place] [address] Grey [place] Calcium [Mass/Vol] 9.4 mg/dL Normal 8.4-10.2 [facility] Comment on above: Performed By: #### C GENESIS SUMMERS KEMAR, CMP #### [facility] [address] [place] [address] Grey [place] Chloride [Moles/Vol] 104 mmol/L Normal 98-107 [facility] Comment on above: Performed By: #### C MELINA LIPA, KEMAR, CMP #### [facility] [address] [place] [address] Grey [place] CO2 [Moles/Vol] 28.0 mmol/L Normal 22.0-30.0 [facility] Comment on above: Performed By: #### C MELINA LIPA, KEMAR, CMP #### [facility] [address] [place] [address] Grey [place] Creatinine [Mass/Vol] 0.80 mg/dL Normal 0.52-1.04 [facility] Comment on above: Performed By: #### C MADM LIPA, KEMAR, CMP #### [facility] [address] [place] [address] Grey [place] EGFR-AF TURKS AND CAICOS ISLANDER >60 Normal >=60 [facility] Comment on above: Performed By: #### C ALICEM, LIPA, KEMAR, CMP #### [facility] [address] [place] [address] Grey [place] EGFR-NON AF TURKS AND CAICOS ISLANDER >60 Normal >=60 [facility] Comment on above: Performed By: #### C ALICEM, LIPA, KEMAR, CMP #### [facility] [address] [place] [address] Grey [place] Globulin (S) [Mass/Vol] 4.0 g/dL Normal [facility] Comment on above: Performed By: #### C MADM, LIPA, KEMAR, CMP #### [facility] [address] [place] [address] Grey [place] Glucose [Mass/Vol] 86 mg/dL Normal 74-106 [facility] Comment on above: Performed By: #### C MADM, LIPA, KEMAR, CMP #### [facility] [address] [place] [address] Grey [place] Potassium [Moles/Vol] 3.8 mmol/L Normal 3.4-5.0 [facility] Comment on above: Performed By: #### C MADM, LIPA, KEMAR, CMP #### [facility] [address] [place] [address] Grey [place] Protein [Mass/Vol] 8.1 g/dL Normal 6.1-8.2 [facility] Comment on above: Performed By: #### C MADM, LIPA, KEMAR, CMP #### [facility] [address] [place] [address] Grey [place] Sodium [Moles/Vol] 142 mmol/L Normal 137-145 [facility] Comment on above: Performed By: #### C MADM, LIPA, KEMAR, CMP #### [facility] [address] [place] [address] Grey [place] Urea nitrogen [Mass/Vol] 11.0 mg/dL Normal 7.0-17.0 [facility] Comment on above: Performed By: #### C MADM, LIPA, KEMAR, CMP #### [facility] [address] [place] [address] Grey [place] Urea nitrogen/Creatinine [Mass ratio] 13.8 mg/mg Normal [facility] Comment on above: Performed By: #### C MADM, LIPA, KEMAR, CMP #### [facility] [address] [place] [id number] Grey [place] ER URINE PROFILEon 1 Bilirubin Ql (U) Negative Normal NEGATIVE [facility] Comment on above: Performed By: #### E RUR #### [facility] [address] [place] [address] Grey [place] Clarity (U) CLEAR Normal CLEAR [facility] Comment on above: Performed By: #### E RUR #### [facility] [address] [place] [address] Grey [place] Color (U) YELLOW Normal YELLOW [facility] Comment on above: Performed By: #### E RUR #### [facility] [address] [place], [place] [id number] Grey [place] ERUAHD A micrscopic examination will be performed if indicated. Normal [facility] Comment on above: Performed By: #### E RUR #### [facility] [address] [place] [address] Grey [place] Glucose Ql (U) Negative Normal NEGATIVE [facility] Comment on above: Performed By: #### E RUR #### [facility] [address] [place] [address] Grey [place] Hemoglobin Ql (U) Negative Normal NEGATIVE [facility] Comment on above: Performed By: #### E RUR #### [facility] [address] [place] [address] Grey [place] Ketones Ql (U) TRACE Abnormal NEGATIVE [facility] Comment on above: Performed By: #### E RUR #### [facility] [address] [place] [address] Grey [place] LEUKOCYTES Negative Normal NEGATIVE [facility] Comment on above: Performed By: #### E RUR #### [facility] [address] [place], [place] [id number] [place] Nitrite Ql (U) Negative Normal NEGATIVE [facility] Comment on above: Performed By: #### E RUR #### [facility] [address] [place] [address] Grey [place] pH (U) 6.0 [pH] Normal 5-9 [facility] Comment on above: Performed By: #### E RUR #### [facility] [address] [place] [id number] Grey Townsend SPEC GRAVITY 1.025 Normal 1.005-<=1.025 [facility] Comment on above: Performed By: #### E RUR #### [facility] [address] [place], [place] [id number] Grey [place]send UA PROTEIN Negative Normal NEGATIVE/ TRACE [facility] Comment on above: Performed By: #### E RUR #### [facility] [address] [place] [address] Grey [place]send UR MICRO IND NOT INDICATED Normal [facility] Comment on above: Performed By: #### E RUR #### [facility] [address] [place] [address] Grey [place]send Urobilinogen Qn (U) 0.2 {Rachel'U}/dL Normal 0.2 - 1. 0 [facility] Comment on above: Performed By: #### E RUR #### [facility] [address] [place], [place] [id number] Grey Townsend CBCon 09-03-2020 Erythrocyte distribution width (RBC) [Ratio] 12.4 % Normal 11.8-14.4 [facility] Comment on above: Performed By: #### C BC, HCG, CP #### [facility] [address] [place] [address] [place] [address] [employer] Rigger: Josué Monae MD #### HIVCMB, PHEP #### [facility] [address] [place] [address] Parach[employer] Rigger: Thang Nielsen MD Hematocrit (Bld) [Volume fraction] 47.9 % High 36.3-47.1 [facility] Comment on above: Performed By: #### C BC, HCG, CP #### [facility] [address] [place] [address] Parach[employer] Rigger: Josué Monae MD #### HIVCMB, PHEP #### [place] [address] [place], [place] [id number] [employer] Rigger: Thang Nielsen MD Hemoglobin (Bld) [Mass/Vol] 15.6 g/dL High 11.9-15.1 [facility] Comment on above: Performed By: #### C BC, HCG, CP #### [address] [place] [address] [employer] Rigger: Josué Monae MD #### HIVCMB, PHEP #### [address] [id number] [employer] Rigger: Thang Nielsen MD MCH (RBC) [Entitic mass] 30.6 pg Normal 25.2-33.5 [facility] Comment on above: Performed By: #### C BC, HCG, CP #### [address] [place] [id number] Par[employer] Rigger: Josué Monae MD #### HIVCMB, PHEP #### [address] [id number] Par[employer] Rigger: Thang Nielsen MD MCHC (RBC) [Mass/Vol] 32.6 g/dL Normal 28.4-34.8 [facility] Comment on above: Performed By: #### C BC, HCG, CP #### [address] [place] [id number] Par[employer] Rigger: Josué Monae MD #### HIVCMB, PHEP #### [address] [id number] [employer] Rigger: Thang Nielsen MD MCV (RBC) [Entitic vol] 94.1 fL Normal 82.6-102.9 [facility] Comment on above: Performed By: #### C BC, HCG, CP #### [address] [place] [address] Par[employer] Rigger: Josué Monae MD #### HIVCMB, PHEP #### [place] [place], [place] [id number] [employer] Rigger: Thang Nielsen MD NRBC Automated 0.0 per 100 WBC Normal 0.0 [facility] Comment on above: Performed By: #### C BC, HCG, CP #### [address] [place] [id number] Par[employer] Rigger: Josué Monae MD #### HIVCMB, PHEP #### [address] [address] [employer] Rigger: Thang Nielsen MD Platelet mean volume (Bld) [Entitic vol] 9.8 fL Normal 8.1-13.5 [facility] Comment on above: Performed By: #### C BC, HCG, CP #### [address] [place] [id number] Par[employer] Rigger: Josué Monae MD #### HIVCMB, PHEP #### [address] [id number] Par[employer] Rigger: Thang Nielsen MD Platelets (Bld) [#/Vol] 394 10*3/uL Normal 138-453 [facility] Comment on above: Performed By: #### C BC, HCG, CP #### [address] [place] [id number] Par[employer] Rigger: Josué Monae MD #### HIVCMB, PHEP #### [address] [phone] [employer] Rigger: Thang Nielsen MD RBC (Bld) [#/Vol] 5.09 10*6/uL Normal 3.95-5.11 [facility] Comment on above: Performed By: #### C BC, HCG, CP #### [address] [place] [phone] Par[employer] Rigger: Josué Monae MD #### HIVCMB, PHEP #### [facility] [address] [place] [address] Parach[employer] Har[employer] Rigger: Thang Nielsen MD WBC (Bld) [#/Vol] 9.1 10*3/uL Normal 3.5-11.3 [facility] Comment on above: Performed By: #### C BC, HCG, CP #### [facility] [address] [place] [address] Parach[employer] Har[employer] Rigger: Josué Monae MD #### HIVCMB, PHEP #### [facility] [address] [place] [address] Parach[employer] Har[employer] Rigger: Thang Nielsen MD CBCOrdered By: Channing Yin on 09-03-2020 Hematocrit (Bld) [Volume fraction] 47.9 % High 36.3 - 47.1 % [employer] Phone: Hemoglobin.gastroint estinal spec 1 Ql (Stl) 15.6 g/dL High 11.9 - 15.1 g/dL [employer] Phone: Interpretation and review of laboratory results Abnormal [employer] Phone: MCH (RBC) [Entitic mass] 30.6 pg 25.2 - 33.5 pg [employer] Phone: MCHC (RBC) [Mass/Vol] 32.6 g/dL 28.4 - 34.8 g/dL [employer] Phone: MCV (RBC) [Entitic vol] 94.1 fL 82.6 - 102.9 fL [employer] Phone: NRBC Automated 0.0 0.0 per 100 WBC [employer] Phone: Platelet distribution width (Bld) [Ratio] 12.4 % 11.8 - 14.4 % [employer] Phone: Platelet mean volume (Bld) [Entitic vol] 9.8 fL 8.1 - 13.5 fL [facility] Phone: Platelets (Bld) [#/Vol] 394 10*3/uL [facility] [employer] Phone: RBC (Bld) [#/Vol] 5.09 10*6/uL 3.95 - 5.1 1 m/uL [facility] [employer] Phone: WBC (Bld) [#/Vol] 9.1 10*3/uL [facility] Phone: [facility] Phone: Comp Metabolic Profon 2020 (cont.) Normal [facility] Comment on above: Result Comment: Aver age GFR for 30-39 years old: 107 mL/min/1.73sq m Chronic Kidney Disease: <60 mL/min/1.73sq m Kidney failure: <15 mL/min/1.73sq m eGFR calculated using average adult body mass. Additional eGFR calculator available at: http://www.[employer]odgeo.Connequity/multiple_crcl_2011.htm Performed By: #### C BC, HCG, CP #### [address] [place] [address] Parach[employer] Rigger: Josué Monae MD #### HIVCMB, PHEP #### [facility] [address] [place] [address] [employer] Rigger: Thang Nielsen MD Albumin [Mass/Vol] 4.2 g/dL Normal 3.5-5.2 [facility] Comment on above: Performed By: #### C BC, HCG, CP #### [address] [place] [address] Parach[employer] Rigger: Josué Monae MD #### HIVCMHayley, PHEP #### [facility] [address] [place] [address] [id number] [employer] Rigger: Thang Nielsen MD Albumin/Glob Ratio 1.2 Normal 1.0-2.5 [facility] Comment on above: Performed By: #### C BC, HCG, CP #### [facility] [address] [place] [address] [place] [place], [place] [phone] [employer] Rigger: Josué Monae MD #### HIVCMB, PHEP #### [address] [address] [employer] Rigger: Thang Nielsen MD Alkaline Phos 116 U/L High 35-104 [facility] Comment on above: Performed By: #### C BC, HCG, CP #### [address] [place], [place] [id number] [employer] Rigger: Josué Monae MD #### HIVCMB, PHEP #### [address] [address] Parach[employer] Rigger: Thang Nielsen MD ALT [Catalytic activity/Vol] 96 U/L High 5-33 [facility] Comment on above: Performed By: #### C BC, HCG, CP #### [address] [place], [place] [phone] [employer] Rigger: Josué Monae MD #### HIVCMB, PHEP #### [address] [address] Parach[employer] Rigger: Thang Nielsen MD Anion gap [Moles/Vol] 11 mmol/L Normal 9-17 [facility] Comment on above: Performed By: #### C BC, HCG, CP #### [facility] [address] [place] [address] [place]. [place], [place] [phone] [employer] Rigger: Josué Monae MD #### HIVCMB, PHEP #### [facility] [address] [place] [address] Parach[employer] Har[employer] Rigger: Thang Nielsen MD AST [Catalytic activity/Vol] 61 U/L High <32 [facility] Comment on above: Performed By: #### C BC, HCG, CP #### [facility] [address] [place], [place] [phone] [employer] Rigger: Josué Monae MD #### HIVCMB, PHEP #### [address] [phone] [employer] Rigger: Thang Nielsen MD Bilirubin [Mass/Vol] 1.47 mg/dL High 0.3-1.2 [facility] Comment on above: Performed By: #### C BC, HCG, CP #### [facility] [address] [place], [place] [phone] [employer] Rigger: Josué Monae MD #### HIVCMB, PHEP #### [address] [phone] [employer] Rigger: Thang Nielsen MD BUN/CRE Ratio 17 Normal 9-20 [facility] Comment on above: Performed By: #### C BC, HCG, CP #### [facility] [address] [place], [place] [phone] [employer] Rigger: Josué Monae MD #### HIVCMB, PHEP #### [address] [phone] [employer] Rigger: Thang Neilsen MD Calcium [Mass/Vol] 9.7 mg/dL Normal 8.6-10.4 [facility] Comment on above: Performed By: #### C BC, HCG, CP #### [facility] [address] [place], [place] [phone] Par[employer] Har[employer] Rigger: Josué Monae MD #### HIVCMB, PHEP #### [address] [phone] Par[employer] Rigger: Thang Nielsen MD Chloride [Moles/Vol] 104 mmol/L Normal 98-107 [facility] Comment on above: Performed By: #### C BC, HCG, CP #### [facility] [address] [place], [place] [phone] Parach[employer] Har[employer] Rigger: Josué Monae MD #### HIVCMB, PHEP #### [address] [address] Parach[employer] Har[employer] Rigger: Thang Nielsen MD CO2 [Moles/Vol] 26 mmol/L Normal 20-31 [facility] Comment on above: Performed By: #### C BC, HCG, CP #### [facility] [address] [place], [place] [phone] Parach[employer] Har[employer] Rigger: Josué Monae MD #### HIVCMB, PHEP #### [address] [address] Parach[employer] Rigger: Thang Nielsen MD Creatinine [Mass/Vol] 0.76 mg/dL Normal 0.50-0.90 [facility] Comment on above: Performed By: #### C BC, HCG, CP #### [facility] [address] [place], [place] [phone] Parach[employer] Har[employer] Rigger: Josué Monae MD #### HIVCMB, PHEP #### [address] [address] [employer]achute Harness Rigger: Thang Nielsen MD GFR, Amer >60 Normal >60 [facility] Comment on above: Performed By: #### C BC, HCG, CP #### [facility] [address] [place], [place] [id number] Parachute Harness Rigger: Josué Monae MD #### HIVCMB, PHEP #### [address] [address] Parachute Harness Rigger: Thang Nielsen MD GFR,non Amer >60 Normal >60 [facility] Comment on above: Performed By: #### C BC, HCG, CP #### [facility] [address] [place], [place] [id number] Parachute Harness Rigger: Josué Monae MD #### HIVCMB, PHEP #### [id number] [place], [place] [id number] Parachute Harness Rigger: Thang Nielsen MD Glucose [Mass/Vol] 112 mg/dL High 70-99 [facility] Comment on above: Performed By: #### C BC, HCG, CP #### [facility] [address] [place], [place] [id number] Parachute Harness Rigger: Josué Monae MD #### HIVCMB, PHEP #### [address] [id number] Parachute Harness Rigger: Thang Nielsen MD Potassium [Moles/Vol] 4.0 mmol/L Normal 3.7-5.3 [facility] Comment on above: Performed By: #### C BC, HCG, CP #### [facility] [address] [place] [address] [place], [place] [id number] Parachute Harness Rigger: Josué Monae MD #### HIVCMB, PHEP #### [id number] [place], [place] [id number] Parachute Harness Rigger: Thang Nielsen MD Protein [Mass/Vol] 7.6 g/dL Normal 6.4-8.3 [facility] Comment on above: Performed By: #### C BC, HCG, CP #### [facility] [address] [place] [address] [place], [place] [id number] Parachute Harness Rigger: Josué Monae MD #### HIVCMB, PHEP #### [address] [id number] Parachute Harness Rigger: Thang Nielsen MD Sodium [Moles/Vol] 141 mmol/L Normal 135-144 [facility] Comment on above: Performed By: #### C BC, HCG, CP #### [address] [place] [address] Parachute Harness Rigger: Josué Monae MD #### HIVCMB, PHEP #### [address] [id number] Parachute Harness Rigger: Thang Nielsen MD Staging: Normal [facility] Comment on above: Result Comment: Stag e 1: Some kidney damage normal GFR Stage 2: Mild kidney damage GFR 60-89 Stage 3: Moderate kidney damage GFR 30-59 Stage 4: Severe kidney damage GFR 15-29 Stage 5: Severe kidney damage GFR <15 ESRD - chronic treatment by dialysis or transplant Performed By: #### C BC, HCG, CP #### [address] [place] [address] Parachute Harness Rigger: Josué Monae MD #### HIVCMB, PHEP #### [address] [id number] Parachute Harness Rigger: Thang Nielsen MD Urea nitrogen [Mass/Vol] 13 mg/dL Normal 6-20 [facility] Comment on above: Performed By: #### C BC, HCG, CP #### [address] [place] [address] Parachute Harness Rigger: Josué Monae MD #### HIVCMB, PHEP #### [address] [id number] Parachute Harness Rigger: Thang Nielsen MD Comprehensive Metabolic Pane lOrdered By: Channing Yin on 09-03-2020 Albumin [Mass/Vol] 4.2 g/dL 3.5 - 5.2 g/dL [facility] [employer] Work Phone: Albumin/Globulin [Mass ratio] 1.2 {ratio} [facility] [employer] Phone: ALP (Bld) [Catalytic activity/Vol] 116 U/L High 35 - 104 U/L [facility] Work Phone: ALT [Catalytic activity/Vol] 96 U/L High 5 - 33 U/L [employer] Phone: Anion gap [Moles/Vol] 11 mmol/L 9 - 17 mmol/L [facility] Phone: AST [Catalytic activity/Vol] 61 U/L High <32 [employer] Phone: Bilirubin [Mass/Vol] 1.47 mg/dL High 0.3 - 1.2 mg/dL [employer] Phone: Calcium [Mass/Vol] 9.7 mg/dL 8.6 - 10. 4 mg/dL [employer] Phone: Chloride [Moles/Vol] 104 mmol/L 98 - 107 mmol/L [facility] Phone: CO2 [Moles/Vol] 26 mmol/L 20 - 31 mmol/L [facility] Phone: Creatinine [Mass/Vol] 0.76 mg/dL 0.50 - 0.90 mg/dL [employer] Phone: Free PSA/Total PSA [Mass fraction] 7.6 g/dL 6.4 - 8.3 g/dL [facility] Phone: GFR >60 >60 mL/min [employer] Phone: GFR Non- >60 >60 mL/min [facility] Phone: Glucose [Mass/Vol] 112 mg/dL High 70 - 99 mg/dL [facility] [employer] Work Phone: Interpretation and review of laboratory results Abnormal [employer] Phone: Potassium [Moles/Vol] 4.0 mmol/L 3.7 - 5.3 mmol/L [facility] Phone: Sodium [Moles/Vol] 141 mmol/L 135 - 144 mmol/L [facility] Phone: Urea nitrogen (BldV) [Mass/Vol] 13 mg/dL 6 - 20 mg/dL [employer] Phone: Urea nitrogen/Creatinine (Bld) [Mass ratio] 17 [employer] Phone: [employer] Phone: HCG Qualitative, SerumOrdere d By: Channing Yin on 09-03-2020 hCG Qual Negative NEGATIVE [employer] Phone: Comment on above: Specimens with hCG l evels near the threshold of the test (25 mIU/mL) may give a negative or indeterminate result. In such cases, another test should be performed with a new specimen in 48-72 hours. If early is suspected clinically in this setting, correlation with quantitative serum b-hCG level is suggested. [employer] has confirmed the use of plasma for this test. This has not been cleared or approved by the U.S. Food and Drug Administration. The FDA has determined that such clearance is not necessary. [employer] Phone: HCG Screen, Bloodon 09-04-19 21 HCG Screen, Blood Negative Normal [facility] Comment on above: Result Comment: Spec imens with hCG levels near the threshold of the test (25 mIU/mL) may give a negative or indeterminate result. In such cases, another test should be performed with a new specimen in 48-72 hours. If early is suspected clinically in this setting, correlation with quantitative serum b-hCG level is suggested. [employer] has confirmed the use of plasma for this test. This has not been cleared or approved by the U.S. Food and Drug Administration. The FDA has determined that such clearance is not necessary. Performed By: #### C BC, HCG, CP #### [facility] [address] [place] [address] Parachute Harness Rigger: Josué Monae MD #### HIVCMB, PHEP #### [facility] [id number] [place] [address] Parachute Harness Rigger: Thang Nielsen MD HIV Ag/Abon 09-03-2020 HIV Ag/Ab Non-Reactive Normal NR [facility] Comment on above: Result Comment: No l aboratory evidence of HIV infection. If acute HIV infection is suspected, consider testing for HIV-1 RNA. Performed By: #### C BC, HCG, CP #### [facility] [address] [place] [address] [place] [place], [place] [id number] Parachute Harness Rigger: Josué Monae MD #### HIVCMB, PHEP #### [facility] [address] [place] [id number] Parachute Harness Rigger: Thang Nielsen MD HIV ScreenOrdered By: Channing Yin on 09-03-2020 HIV Ag/Ab Non-Reactive NONREACTIVE [facility] Work Phone: Comment on above: No laboratory eviden ce of HIV infection. If acute HIV infection is suspected, consider testing for HIV-[address] [facility] Work Phone: Hepatitis Acute [facility] 09-03 Hep A Ab,IgM Non-Reactive Normal NR [facility] Comment on above: Performed By: #### C BC, HCG, CP #### [address] [place] [address] Parachute Harness Rigger: Josué Monae MD #### HIVCMB, PHEP #### [address] [address] Parachute Harness Rigger: Thang Nielsen MD Hep B Core Ab,IgM Non-Reactive Normal NR [facility] Comment on above: Performed By: #### C BC, HCG, CP #### [facility] [address] [place] [address] Parachute Harness Rigger: Josué Monae MD #### HIVCMB, PHEP #### [facility] [address] [place] [address] Parachute Harness Rigger: Thang Nielsen MD Hep B Surf Ag Non-Reactive Normal [facility] Comment on above: Performed By: #### C BC, HCG, CP #### [facility] [address] [place] [address] [place] [address] Parachute Harness Rigger: Josué Monae MD #### HIVCMB, PHEP #### [facility] [address] [place], [place] [id number] Parachute Harness Rigger: Thang Nielsen MD Hep C Ab Reactive Abnormal NR [facility] Comment on above: Result Comment: The hepatitis C procedure used in our laboratory is a Chemiluminescent test specific for three recombinant HCV antigens. A negative anti-HCV result indicates that the antibodies to hepatitis C virus are not present at this time. Individuals with reactive anti-HCV should be considered infected and infectious until proven otherwise. Confirmation of all equivocal or reactive results is recommended by ordering HCV RNA by PCR. Results reported to the appropriate Health Department Performed By: #### C BC, HCG, CP #### [address] [place] [address] Parachute Harness Rigger: Josué Monae MD #### HIVCMB, PHEP #### [facility] [address] [place], [place] [id number] Parachute Harness Rigger: Thang Nielsen MD Hepatitis Panel, AcuteOrdere d By: Channing Yin on 09-03-2020 HAV IgM IA Qn (S) Non-Reactive NONREACTIVE [facility] Work Phone: Hep B Core Ab, IgM Non-Reactive NONREACTIVE [facility] Work Phone: Hepatitis B Surface Ag Non-Reactive NONREACTIVE [facility] Work Phone: Hepatitis C Ab Reactive Abnormal NONREACTIVE [facility] Work Phone: Comment on above: The hepatitis C procedure used in our laboratory is a Chemiluminescent test specific for three recombinant HCV antigens. A negative anti-HCV result indicates that the antibodies to hepatitis C virus are not present at this time. Individuals with reactive anti-HCV should be considered infected and infectious until proven otherwise. Confirmation of all equivocal or reactive results is recommended by ordering HCV RNA by PCR. Results reported to the appropriate Health Department Interpretation and review of laboratory results Abnormal [employer] Phone: [employer] Phone: Laboratory - Chemistry and C hemistry - challengeOrdered By: Channing Yin on 09-03-2020 GFR/1.73 sq M.predicted MDRD (S/P/Bld) [Vol rate/Area] [employer] Phone: Comment on above: Average GFR for 30-3 9 years old: 107 mL/min/1.73sq m Chronic Kidney Disease: <60 mL/min/1.73sq m Kidney failure: <15 mL/min/1.73sq m eGFR calculated using average adult body mass. Additional eGFR calculator available at: http://www.[employer]/multiple_crcl_2012.htm Stage 1: Some kidney damage normal GFR Stage 2: Mild kidney damage GFR 60-89 Stage 3: Moderate kidney damage GFR 30-59 Stage 4: Severe kidney damage GFR 15-29 Stage 5: Severe kidney damage GFR <15 ESRD - chronic treatment by dialysis or transplant Family Medicine Office/Clini c Noteon 04-13-2020 Family Medicine Office/Clinic Note Chief Complaint EST tooth infection HPI Staff Patient 34 yo female presents with tooth infection Onset: Monday Location: left side top Fevers: no History of dental problems: yes Routine Dental Care: yes Treatments tried over the counter: tylenol, ibuprofen History of Present Illness I have reviewed and verified the staff HPI to be accurate for this encounter. ?The patient or their guardian verbally consented to allow Jordana Cheng to record this visit.? Morris Duran is a 34-year-old female who presents for evaluation of a left upper back dental pain. She states there is a bump on her gum that is painful to touch. She states that she noticed the bump 3 days ago. She denies swelling and pain in her neck. She denies fever. She has been alternating Tylenol and 400 mg to 600 mg ibuprofen for the pain. She does have a broken tooth in that area. She last saw the dentist 1.5 years ago and she had 2 teeth pulled at that time. She has not followed up with the dentist because she moved from [place] to [place]. She denies ear pain and a sore throat. Review of Systems PHQ Score Initial Depression Screen Score: 0 Constitutional: fever: no, chills:no, sweats: no, weakness: no, body aches: no, RALPH: no Skin: rash: no, lesions: no Eye: eye pain: no, discharge: no, light sensitivity: no, eye irritation: no, blurring: no, vision loss: no ENMT: ear pain: no, sore throat: no, nasal congestion: no , nasal drainage: no, hoarseness: no, + dental pain Respiratory: chest congestion/tightness : no, shortness of breath: no, cough: no, wheezing: no, orthopnea:no Cardiovascular: chest pain: no, palpitations: no, edema to LEs: no Gastrointestinal: nausea: no, vomiting: no, diarrhea: no, constipation: no , hematochezia/hematem esis: no Physical Exam Vitals & Measurements T: 36.3 ?C (Oral) HR: 79(Peripheral) BP: 132/84 SpO2: 97% HT: 165 cm HT: 165.0 cm WT: 102.9 kg WT: 102.9 kg BMI: 37.8 General: Overweight, pleasant adult female in no acute distress. Mouth: no pharyngeal erythema or edema. The patient does have 2 broken back molars to the left upper jaw with only roots intact. The surrounding gum has mild erythema and edema. She has a moderate sized abscess to the outer portion of gums in that area. Indurated throughout. No active drainage. The area is very tender. Neck: no palpable nodes. Lungs: clear throughout. No respiratory distress Cardio: regular rate and rhythm, no murmur Skin: does have mild swelling along the left upper jaw area and pain with palpation. However, there is no localized erythema or warmth to the cheek area or her face. Mental status: alert and oriented x 3. Normal mood and affect. Assessment/Plan 1. BMI 37.0-37.9, adult (Z68.37: Body mass index [BMI] 37.0-37.9, adult) The standard range for ages 18 and older is >=18.5 and < 25 kg/m2. Your BMI today was above this range, this falls in the overweight to obese category and there are medical benefits to weight loss. We can offer counselling, referral, and/or medical support in addressing this problem. Your BMI and weight management will be followed at subsequent visits. 2. Abscess, dental (K04.7: Periapical abscess without sinus) I will treat the patient with penicillin VK given signs of infection. Finish antibiotic course. May use ibuprofen 800 Rx for pain. She may also alternate Tylenol 500 mg capsules in between ibuprofen, if needed. She may use Anbesol hdwn-uzl-sheutul topically. Discussed importance of follow up with dentist ABIEL for proper treatment- pain and/or infection will continue or reoccur until properly treated. ER if any significantly worsening pain, high fever, or rapidly spreading erythema, edema, warmth to face. Patient verbalized understanding of treatment plan. 3. Jaw pain (R68.84: Jaw pain) See above. Tobacco user (Z72.0: Tobacco use) We strongly recommend to quit tobacco use. Cigarette smoking harms nearly every organ of the body, causes many diseases, and reduces the health of smokers in general. Quitting smoking lowers your risk for smoking-related diseases and can add years to your life. We encourage you to visit www.smokefree.gov access to helpful resources including free telephone support. If you decide on prescription treatment to help you quit, we would be happy to provide these. ATTESTATION Documentation services were performed by JUAN DAVID after patient consented to recording for virtual scribe and provider reviewed before signing. JUAN DAVID: Letitia Salazar. Follow-up No qualifying data available Patient Education Health Risks of Smoking Obesity, Adult Problem List/Past Medical History Ongoing ADHD Anxiety Bipolar illness Depression Insomnia Psychiatric disorder Historical No qualifying data Procedure/Surgical History Tonsillectomy and adenoidectomy; age 12 or over. Medications cloNIDine 0.1 mg tab, Oral, BID Effexor XR 150 mg Cap-ER, 150 mg= 1 cap(s), Oral, Daily, Not taking Effexor XR 37.5 mg Cap-ER, 37.5 mg= 1 cap(s), Oral, Daily, Not taking hydrOXYzine hydrochloride 25 mg Tab, 25 mg= 1 tab(s), Oral, Daily, Not taking ibuprofen 800 mg Tab, 800 mg= 1 tab(s), Oral, q8hr penicillin V potassium 500 mg Tab, 500 mg= 1 tab(s), Oral, q6hr trazodone, Oral, BID Allergies Ceclor (numbness) Cymbalta (blackout) Social History Alcohol - Denies Alcohol Use, 10/17/2018 Substance Abuse - Denies Substance Abuse, 10/17/2018 Tobacco 10 or more cigarettes (1/2 pack or more)/day in last 30 days Tobacco Use:. Cigarettes, Yes, 04/09/2020 10 or more cigarettes (1/2 pack or more)/day in last 30 days Tobacco Use:. Cigarettes, 12/06/2018 Family History A Fib: Mother. Diabetes mellitus type 2: Father. High cholesterol: Father. Hypertension: Father. Rheumatoid arthritis: Mother. [facility] Comment on above: Result Comment: Elec tronically Signed By: Dyan GREENE CNP\.br\Date and Time Signed: 04/13/20 12:00 EST\.br\Electronically Co-Signed By: Letitia Salazar\.br\Date and Time Co-Signed: 04/09/20 21:38 EST Ambulatory Clinical Summaryo n 04-09-2020 Ambulatory Clinical Summary {[id number] [facility] Patient Educationon 04-10-19 21 Patient Education Gastroenterology Obesity, Adult Obesity is the condition of having too much total body fat. Being overweight or obese means that your weight is greater than what is considered healthy for your body size. Obesity is determined by a measurement called BMI. BMI is an estimate of body fat and is calculated from height and weight. For adults, a BMI of 30 or higher is considered obese. Obesity can lead to other health concerns and major illnesses, including: ? Stroke. ? Coronary artery disease (CAD). ? Type 2 diabetes. ? Some types of cancer, including cancers of the colon, breast, uterus, and gallbladder. ? Osteoarthritis. ? High blood pressure (hypertension). ? High cholesterol. ? Sleep apnea. ? Gallbladder stones. ? Infertility problems. What are the causes? Common causes of this condition include: ? Eating daily meals that are high in calories, sugar, and fat. ? Being born with genes that may make you more likely to become obese. ? Having a medical condition that causes obesity, including: ? Hypothyroidism. ? Polycystic ovarian syndrome (PCOS). ? Binge-eating disorder. ? [place] syndrome. ? Taking certain medicines, such as steroids, antidepressants, and seizure medicines. ? Not being physically active (sedentary lifestyle). ? Not getting enough sleep. ? Drinking high amounts of sugar-sweetened beverages, such as soft drinks. What increases the risk? The following factors may make you more likely to develop this condition: ? Having a family history of obesity. ? Being a woman of descent. ? Being a man of descent. ? Living in an area with limited access to: ? [place], recreation centers, or sidewalks. ? Healthy food choices, such as grocery stores and [employer]. What are the signs or symptoms? The main sign of this condition is having too much body fat. How is this diagnosed? This condition is diagnosed based on: ? Your BMI. If you are an adult with a BMI of 30 or higher, you are considered obese. ? Your waist circumference. This measures the distance around your waistline. ? Your skinfold thickness. Your health care provider may gently pinch a fold of your skin and measure it. You may have other tests to check for underlying conditions. How is this treated? Treatment for this condition often includes changing your lifestyle. Treatment may include some or all of the following: ? Dietary changes. This may include developing a healthy meal plan. ? Regular physical activity. This may include activity that causes your heart to beat faster (aerobic exercise) and strength training. Work with your health care provider to design an exercise program that works for you. ? Medicine to help you lose weight if you are unable to lose 1 pound a week after 6 weeks of healthy eating and more physical activity. ? Treating conditions that cause the obesity (underlying conditions). ? Surgery. Surgical options may include gastric banding and gastric bypass. Surgery may be done if: ? Other treatments have not helped to improve your condition. ? You have a BMI of 40 or higher. ? You have life-threatening health problems related to obesity. Follow these instructions at home: Eating and drinking ? Follow recommendations from your health care provider about what you eat and drink. Your health care provider may advise you to: ? Limit fast food, sweets, and processed snack foods. ? Choose low-fat options, such as low-fat milk instead of whole milk. ? Eat 5 or more servings of fruits or vegetables every day. ? Eat at home more often. This gives you more control over what you eat. ? Choose healthy foods when you eat out. ? Learn to read food labels. This will help you understand how much food is considered 1 serving. ? Learn what a healthy serving size is. ? Keep low-fat snacks available. ? Limit sugary drinks, such as soda, fruit juice, sweetened iced tea, and flavored milk. ? Drink enough water to keep your urine pale yellow. ? Do not follow a fad diet. Fad diets can be unhealthy and even dangerous. Physical activity ? Exercise regularly, as told by your health care provider. ? Most adults should get up to 150 minutes of moderate-intensity exercise every week. ? Ask your health care provider what types of exercise are safe for you and how often you should exercise. ? Warm up and stretch before being active. ? Cool down and stretch after being active. ? Rest between periods of activity. Lifestyle ? Work with your health care provider and a dietitian to set a weight-loss goal that is healthy and reasonable for you. ? Limit your screen time. ? Find ways to reward yourself that do not involve food. ? Do not drink alcohol if: ? Your health care provider tells you not to drink. ? You are , may be , or are planning to become . ? If you drink alcohol: ? Limit how much you use to: ? 0?1 drink a day for women. ? 0?2 drinks a day for men. ? Be aware of how much alcohol is in your drink. In the [place] one drink equals one 12 oz bottle of beer (355 mL), one 5 oz glass of wine (148 mL), or one 1? oz glass of hard liquor (44 mL). General instructions ? Keep a weight-loss journal to keep track of the food you eat and how much exercise you get. ? Take pboe-wms-hwsedio and prescription medicines only as told by your health care provider. ? Take vitamins and supplements only as told by your health care provider. ? Consider joining a support group. Your health care provider may be able to recommend a support group. ? Keep all follow-up visits as told by your health care provider. This is important. Contact a health care provider if: ? You are unable to meet your weight loss goal after 6 weeks of dietary and lifestyle changes. Get help right away if you are having: ? Trouble breathing. ? Suicidal thoughts or behaviors. Summary ? Obesity is the condition of having too much total body fat. ? Being overweight or obese means that your weight is greater than what is considered healthy for your body size. ? Work with your health care provider and a dietitian to set a weight-loss goal that is healthy and reasonable for you. ? Exercise regularly, as told by your health care provider. Ask your health care provider what types of exercise are safe for you and how often you should exercise. This information is not intended to replace advice given to you by your health care provider. Make sure you discuss any questions you have with your health care provider. Document Released: 03/02/2005 Document Revised: 09/27/2018 Document Reviewed: 09/27/2018 [employer] Patient Education ? 2020 [employer]. Pulmonary Medicine Health Risks of Smoking Smoking cigarettes is very bad for your health. Tobacco smoke has over 200 known poisons in it. It contains the poisonous gases nitrogen oxide and carbon monoxide. There are over 60 chemicals in tobacco smoke that cause cancer. Smoking is difficult to quit because a chemical in tobacco, called nicotine, causes addiction or dependence. When you smoke and inhale, nicotine is absorbed rapidly into the bloodstream through your lungs. Both inhaled and non-inhaled nicotine may be addictive. What are the risks of cigarette smoke? Cigarette smokers have an increased risk of many serious medical problems, including: ? Lung cancer. ? Lung disease, such as pneumonia, bronchitis, and emphysema. ? Chest pain (angina) and heart attack because the heart is not getting enough oxygen. ? Heart disease and peripheral blood vessel disease. ? High blood pressure (hypertension). ? Stroke. ? Oral cancer, including cancer of the lip, mouth, or voice box. ? Bladder cancer. ? Pancreatic cancer. ? Cervical cancer. ? complications, including premature . ? Stillbirths and smaller babies, defects, and genetic damage to sperm. ? Early menopause. ? Lower estrogen level for women. ? Infertility. ? Facial wrinkles. ? Blindness. ? Increased risk of broken bones (fractures). ? Senile dementia. ? Stomach ulcers and internal bleeding. ? Delayed wound healing and increased risk of complications during surgery. ? Even smoking lightly shortens your life expectancy by several years. Because of secondhand smoke exposure, children of smokers have an increased risk of the following: ? Sudden syndrome (SIDS). ? Respiratory infections. ? Lung cancer. ? Heart disease. ? Ear infections. What are the benefits of quitting? There are many health benefits of quitting smoking. Here are some of them: ? Within days of quitting smoking, your risk of having a heart attack decreases, your blood flow improves, and your lung capacity improves. Blood pressure, pulse rate, and breathing patterns start returning to normal soon after quitting. ? Within months, your lungs may clear up completely. ? Quitting for 10 years reduces your risk of developing lung cancer and heart disease to almost that of a nonsmoker. ? People who quit may see an improvement in their overall quality of life. How do I quit smoking? Smoking is an addiction with both physical and psychological effects, and longtime habits can be hard to change. Your health care provider can recommend: ? Programs and community resources, which may include group support, education, or talk therapy. ? Prescription medicines to help reduce cravings. ? Nicotine replacement products, such as patches, gum, and nasal sprays. Use these products only as directed. Do not replace cigarette smoking with electronic cigarettes, which are commonly called e-cigarettes. The safety of e-cigarettes is not known, and some may contain harmful chemicals. ? A combination of two or more of these methods. Where to find more information ? [place] [employer]: www.lung.org ? [place] [employer]: www.cancer.org Summary ? Smoking cigarettes is very bad for your health. Cigarette smokers have an increased risk of many serious medical problems, including several cancers, heart disease, and stroke. ? Smoking is an addiction with both physical and psychological effects, and longtime habits can be hard to change. ? By stopping right away, you can greatly reduce the risk of medical problems for you and your family. ? To help you quit smoking, your health care provider can recommend programs, community resources, prescription medicines, and nicotine replacement products such as patches, gum, and nasal sprays. This information is not intended to replace advice given to you by your health care provider. Make sure you discuss any questions you have with your health care provider. Document Released: 03/02/2005 Document Revised: 04/26/2018 Document Reviewed: 01/27/2017 [employer] Patient Education ? 2020 [employer]. [facility] HCV RNA,Quant,PCRon 11-19-19 20 HCV RNA,Quant,PCR Specimen Description .PLASMA Special Requests QUALITATIVE Direct Exam HCV RNA DETECTED 377,000 IU/ML (5.58 LOG IU/ML) This test is a sensitive method for quantitating HCV RNA viral loads in plasma. It utilizes RT-PCR in the FDA approved Ko Ampliprep/Taqman 48 System. This test is intended for detecting and quantifying HCV RNA viral loads in the range of 15 IU/mL to 100,000,000 IU/mL (1.18 log IU/mL to 8.00 log IU/mL). Patients should have confirmed HCV infection prior to RNA quantification. This test has been developed to monitor disease progression and efficacy of anti-HCV drug therapy. This test has been optimized for HCV genotypes 1-6. Results reported to the appropriate Health Department Report Status FINAL 11/19/2019 Normal [facility] Comment on above: Performed By: #### H CVQ #### [address] [id number] Parachute Harness Rigger: Thang Nielsen MD [address] [place] [address] Parachute Harness Rigger: Arnoldo Soni MD [facility] 11-15-2019 Erythrocyte distribution width (RBC) [Ratio] 12.6 % Normal 11.8-14.4 [facility] Comment on above: Performed By: #### C BC, CP, HCG #### [address] [place] [id number] Parachute Harness Rigger: Arnoldo Soni MD #### PHEP HIVCMB #### [address] [address] Parachute Harness Rigger: Thang Nielsen MD Hematocrit (Bld) [Volume fraction] 45.5 % Normal 36.3-47.1 [facility] Comment on above: Performed By: #### C BC, CP, HCG #### [address] [place] [address] Parachute Harness Rigger: Arnoldo Soni MD #### SALVADOR HIVCMB #### [address] [id number] Parachute Harness Rigger: Thang Nielsen MD Hemoglobin (Bld) [Mass/Vol] 14.7 g/dL Normal 11.9-15.1 [facility] Comment on above: Performed By: #### C BC, CP, HCG #### [address] [place] [phone] Parachute Harness Rigger: Arnoldo Soni MD #### PHEP, HIVCMB #### [address] [address] [place], [place] [phone] Parachute Harness Rigger: Thang Nielsen MD MCH (RBC) [Entitic mass] 31.3 pg Normal 25.2-33.5 [facility] Comment on above: Performed By: #### C BC, CP, HCG #### [address] [place] [phone] Parachute Harness Rigger: Arnoldo Soni MD #### PHEP, HIVCMB #### [address] [id number] Parachute Harness Rigger: Thang Nielsen MD MCHC (RBC) [Mass/Vol] 32.3 g/dL Normal 28.4-34.8 [facility] Comment on above: Performed By: #### C BC, CP, HCG #### [address] [place] [phone] Parachute Harness Rigger: Arnoldo Soni MD #### PHEP, HIVCMB #### [address] [place], [place] [id number] Parachute Harness Rigger: Thang Nielsen MD MCV (RBC) [Entitic vol] 97.0 fL Normal 82.6-102.9 [facility] Comment on above: Performed By: #### C BC, CP, HCG #### [address] [place] [address] Parachute Harness Rigger: Arnoldo Soni MD #### PHEP, HIVCMB #### [address] [place] [address] Parachute Harness Rigger: Thang Nielsen MD NRBC Automated 0.0 per 100 WBC Normal 0.0 [facility] Comment on above: Performed By: #### C BC, CP, HCG #### [facility] [address] [place] [phone] Parachute Harness Rigger: Arnoldo Soni MD #### PHEP, HIVCMB #### [address] [address] Parachute Harness Rigger: Thang Nielsen MD Platelet mean volume (Bld) [Entitic vol] 10.3 fL Normal 8.1-13.5 [facility] Comment on above: Performed By: #### C BC, CP, HCG #### [address] [place] [phone] Parachute Harness Rigger: Arnoldo Soni MD #### PHEP, HIVCMB #### [address] [phone] Parachute Harness Rigger: Thang Nielsen MD Platelets (Bld) [#/Vol] 434 10*3/uL Normal 138-453 [facility] Comment on above: Performed By: #### C BC, CP, HCG #### [facility] [address] [place] [address] Dr. [place] [phone] Parachute Harness Rigger: Arnoldo Soni MD #### PHEP, HIVCMB #### [address] [address] Parachute Harness Rigger: Thang Nielsen MD RBC (Bld) [#/Vol] 4.69 10*6/uL Normal 3.95-5.11 [facility] Comment on above: Performed By: #### C BC, CP, HCG #### [facility] [address] [place] [phone] Parachute Harness Rigger: Arnoldo Soni MD #### PHEP, HIVCMB #### [facility] [address] [place], [place] [phone] Parachute Harness Rigger: Thang Nielsen MD WBC (Bld) [#/Vol] 7.9 10*3/uL Normal 3.5-11.3 [facility] Comment on above: Performed By: #### C BC, CP, HCG #### [facility] [address] [place] [address] Parachute Harness Rigger: Arnoldo Soni MD #### PHEP, HIVCMB #### [facility] [address] [place] [address] Parachute Harness Rigger: Thang Nielsen MD Erythrocyte distribution width (RBC) [Ratio] 12.6 % 11.8 - 14.4 % [place] Hematocrit (Bld) [Volume fraction] 45.5 % 36.3 - 47.1 % [place] Hemoglobin (Bld) [Mass/Vol] 14.7 g/dL 11.9 - 15.1 g/dL [place] MCH (RBC) [Entitic mass] 31.3 pg 25.2 - 33.5 pg [place] MCHC (RBC) [Mass/Vol] 32.3 g/dL 28.4 - 34.8 g/dL [place] MCV (RBC) [Entitic vol] 97.0 fL 82.6 - 102.9 fL [place] Platelet mean volume (Bld) [Entitic vol] 10.3 fL 8.1 - 13.5 fL [place], [place] Platelets (Bld) [#/Vol] 434 10*3/uL [place] RBC (Bld) [#/Vol] 4.69 10*6/uL 3.95 - 5.1 1 m/uL [place] WBC (Bld) [#/Vol] 0.0 10*3/uL 0.0 per 100 WBC M [place] WBC (Bld) [#/Vol] 7.9 10*3/uL [place] Comp Metabolic Profon 2019 (cont.) Normal [facility] Comment on above: Result Comment: Aver age GFR for 30-39 years old: 107 mL/min/1.73sq m Chronic Kidney Disease: <60 mL/min/1.73sq m Kidney failure: <15 mL/min/1.73sq m eGFR calculated using average adult body mass. Additional eGFR calculator available at: http://www.[employer]/multiple_crcl_2012.htm Performed By: #### C BC, CP, HCG #### [facility] [address] [place], [place] [id number] Parachute Harness Rigger: Arnoldo Soni MD #### PHEDonald, HIVCMB #### [address] [phone] Parachute Harness Rigger: Thang Nielsen MD Albumin [Mass/Vol] 3.8 g/dL Normal 3.5-5.2 [facility] Comment on above: Performed By: #### C BC, CP, HCG #### [facility] [address] [place], [place] [phone] Parachute Harness Rigger: Arnoldo Soni MD #### PHEP, HIVCMB #### [address] [id number] Parachute Harness Rigger: Thang Nielsen MD Albumin/Glob Ratio 1.2 Normal 1.0-2.5 [facility] Comment on above: Performed By: #### C BC, CP, HCG #### [facility] [address] [place], [place] [phone] Parachute Harness Rigger: Arnoldo Soni MD #### PHEDonald, HIVCMB #### [address] [address] Parachute Harness Rigger: Thang Nielsen MD Alkaline Phos 72 U/L Normal 35-104 [facility] Comment on above: Performed By: #### C BC, CP, HCG #### [facility] [address] [place], [place] [phone] Parachute Harness Rigger: Arnoldo Soni MD #### PHEP, HIVCMB #### [address] [place], [place] [phone] Parachute Harness Rigger: Thang Nielsen MD ALT [Catalytic activity/Vol] 72 U/L High 5-33 [facility] Comment on above: Performed By: #### C BC, CP, HCG #### [facility] [address] [place], [place] [phone] Parachute Harness Rigger: Arnoldo Soni MD #### PHEP, HIVCMB #### [address] [phone] Parachute Harness Rigger: Thang Nielsen MD Anion gap [Moles/Vol] 9 mmol/L Normal 9-17 [facility] Comment on above: Performed By: #### C BC, CP, HCG #### [facility] [address] [place] [address] [place]. [place], [place] [phone] Parachute Harness Rigger: Arnoldo Soni MD #### PHEP, HIVCMB #### [address] [phone] Parachute Harness Rigger: Thang Nielsen MD AST [Catalytic activity/Vol] 49 U/L High <32 [facility] Comment on above: Performed By: #### C BC, CP, HCG #### [facility] [address] [place] [address] Dr. [place], [place] [phone] Parachute Harness Rigger: Arnoldo Soni MD #### PHEP, HIVCMB #### [address] [address] Parachute Harness Rigger: Thang Nielsen MD Bilirubin [Mass/Vol] 0.32 mg/dL Normal 0.3-1.2 [facility] Comment on above: Performed By: #### C BC, CP, HCG #### [facility] [address] [place] [address] Dr. [place] [phone] Parachute Harness Rigger: Arnoldo Soni MD #### PHEP, HIVCMB #### [address] [phone] Parachute Harness Rigger: Thang Nielsen MD BUN/CRE Ratio 18 Normal 9-20 [facility] Comment on above: Performed By: #### C BC, CP, HCG #### [facility] [address] [place] [address] Dr. [place] [phone] Parachute Harness Rigger: Arnoldo Soni MD #### PHEP, HIVCMB #### [address] [address] Parachute Harness Rigger: Thang Nielsen MD Calcium [Mass/Vol] 9.3 mg/dL Normal 8.6-10.4 [facility] Comment on above: Performed By: #### C BC, CP, HCG #### [address] [place] [phone] Parachute Harness Rigger: Arnoldo Soni MD #### PHEP, HIVCMB #### [address] [address] Parachute Harness Rigger: Thang Nielsen MD Chloride [Moles/Vol] 105 mmol/L Normal 98-107 [facility] Comment on above: Performed By: #### C BC, CP, HCG #### [address] [place] [phone] Parachute Harness Rigger: Arnoldo Soni MD #### PHEP, HIVCMB #### [address] [address] Parachute Harness Rigger: Thang Nielsen MD CO2 [Moles/Vol] 25 mmol/L Normal 20-31 [facility] Comment on above: Performed By: #### C BC, CP, HCG #### [address] [place] [phone] Parachute Harness Rigger: Arnoldo Soni MD #### PHEP, HIVCMB #### [address] [place], [place] 8629208 Parachute Harness Rigger: Thang Nielsen MD Creatinine [Mass/Vol] 0.57 mg/dL Normal 0.50-0.90 [facility] Comment on above: Performed By: #### C BC, CP, HCG #### [facility] [address] [place], [place] [phone] Parachute Harness Rigger: Arnoldo Soni MD #### PHEP, HIVCMB #### [address] [phone] Parachute Harness Rigger: Thang Nielsen MD GFR, Amer >60 Normal >60 [facility] Comment on above: Performed By: #### C BC, CP, HCG #### [facility] [address] [place] [address] Dr. [place], [place] [phone] Parachute Harness Rigger: Arnoldo Soni MD #### PHEP, HIVCMB #### [address] [phone] Parachute Harness Rigger: Thang Nielsen MD GFR,non Amer >60 Normal >60 [facility] Comment on above: Performed By: #### C BC, CP, HCG #### [facility] [address] [place] [address] [place]. [place], [place] [phone] Parachute Harness Rigger: Arnoldo Soni MD #### PHEP, HIVCMB #### [address] [address] Parachute Harness Rigger: Thang Nielsen MD Glucose [Mass/Vol] 120 mg/dL High 70-99 [facility] Comment on above: Performed By: #### C BC, CP, HCG #### [facility] [address] [place] [address] Parachute Harness Rigger: Arnoldo Soni MD #### PHEP, HIVCMB #### [address] [place] [address] Parachute Harness Rigger: Thang Nielsen MD Potassium [Moles/Vol] 3.7 mmol/L Normal 3.7-5.3 [facility] Comment on above: Performed By: #### C BC, CP, HCG #### [address] [place], [place] 5903483 Parachute Harness Rigger: Arnoldo Soni MD #### PHEP, HIVCMB #### [address] [place] [address] Parachute Harness Rigger: Thang Nielsen MD Protein [Mass/Vol] 7.1 g/dL Normal 6.4-8.3 [facility] Comment on above: Performed By: #### C BC, CP, HCG #### [address] [place], [place] [phone] Parachute Harness Rigger: Arnoldo Soni MD #### PHEP, HIVCMB #### [address] [address] Parachute Harness Rigger: Thang Nielsen MD Sodium [Moles/Vol] 139 mmol/L Normal 135-144 [facility] Comment on above: Performed By: #### C BC, CP, HCG #### [address] [place], [place] [phone] Parachute Harness Rigger: Arnoldo Soni MD #### PHEP, HIVCMB #### [address] [address] Parachute Harness Rigger: Thang Nielsen MD Staging: Normal [facility] Comment on above: Result Comment: Stag e 1: Some kidney damage normal GFR Stage 2: Mild kidney damage GFR 60-89 Stage 3: Moderate kidney damage GFR 30-59 Stage 4: Severe kidney damage GFR 15-29 Stage 5: Severe kidney damage GFR <15 ESRD - chronic treatment by dialysis or transplant Performed By: #### C BC, CP, HCG #### [address] [place] [address] Parachute Harness Rigger: Arnoldo Soni MD #### PHEP, HIVCMB #### [facility] [address] [place], [place] [phone] Parachute Harness Rigger: Thang Nielsen MD Urea nitrogen [Mass/Vol] 10 mg/dL Normal 6-20 [facility] Comment on above: Performed By: #### C BC, CP, HCG #### [facility] [address] [place] [address] Parachute Harness Rigger: Arnoldo Soni MD #### PHEDonald, HIVCMB #### [facility] [address] [place], [place] [phone] Parachute Harness Rigger: Thang Nielsen MD Comprehensive Metabolic Pane [facility] 11-15-2019 Albumin [Mass/Vol] 3.8 g/dL 3.5 - 5.2 g/dL [place], [place] Albumin/Globulin [Mass ratio] 1.2 {ratio} [place], [place] ALP [Catalytic activity/Vol] 72 U/L 35 - 104 U/L [place] ALT [Catalytic activity/Vol] 72 U/L High 5 - 33 U/L [place] Anion gap [Moles/Vol] 9 mmol/L 9 - 17 mmol/L [place] AST [Catalytic activity/Vol] 49 U/L High <32 [place] Bilirubin Ql (U) 0.32 mg/dL 0.3 - 1.2 mg/dL [place], [place] Bun/Cre Ratio 18 [place], [place] Calcium [Mass/Vol] 9.3 mg/dL 8.6 - 10. 4 mg/dL [place] Chloride [Moles/Vol] 105 mmol/L 98 - 107 mmol/L [place] CO2 [Moles/Vol] 25 mmol/L 20 - 31 mmol/L [place] Creatinine [Mass/Vol] 0.57 mg/dL 0.5 - 0.9 mg/dL [place] GFR >60 >60 mL/min [place] GFR Non- >60 >60 mL/min [place] Glucose [Mass/Vol] 120 mg/dL High 70 - 99 mg/dL [place] Interpretation and review of laboratory results Abnormal [place] Potassium [Moles/Vol] 3.7 mmol/L 3.7 - 5.3 mmol/L [place] Protein [Mass/Vol] 7.1 g/dL 6.4 - 8.3 g/dL [place] Sodium [Moles/Vol] 139 mmol/L 135 - 144 mmol/L [place] Urea nitrogen [Mass/Vol] 10 mg/dL 6 - 20 mg/dL [place] HCG Qualitative, Serumon hCG Qual Negative NEGATIVE [place] Comment on above: Specimens with hCG l evels near the threshold of the test (25 mIU/mL) may give a negative or indeterminate result. In such cases, another test should be performed with a new specimen in 48-72 hours. If early is suspected clinically in this setting, correlation with quantitative serum b-hCG level is suggested. [facility] has confirmed the use of plasma for this test. This has not been cleared or approved by the U.S. Food and Drug Administration. The FDA has determined that such clearance is not necessary. HCG Screen, Bloodon 11-15-19 20 HCG Screen, Blood Negative Normal [facility] Comment on above: Result Comment: Spec imens with hCG levels near the threshold of the test (25 mIU/mL) may give a negative or indeterminate result. In such cases, another test should be performed with a new specimen in 48-72 hours. If early is suspected clinically in this setting, correlation with quantitative serum b-hCG level is suggested. [facility] has confirmed the use of plasma for this test. This has not been cleared or approved by the U.S. Food and Drug Administration. The FDA has determined that such clearance is not necessary. Performed By: #### C BC, CP, HCG #### [facility] [address] [place] [address] Parachute Harness Rigger: Arnoldo Soni MD #### PHEP, HIVCMB #### [facility] [address] [place] [address] Parachute Harness Rigger: Thang Nielsen MD HIV Ag/Abon 11-15-2019 HIV Ag/Ab Non-Reactive Normal NR [facility] Comment on above: Result Comment: No l aboratory evidence of HIV infection. If acute HIV infection is suspected, consider testing for HIV-1 RNA. Performed By: #### C BC, HCG, CP #### [facility] [address] [place] [address] [place], [place] [phone] Parachute Harness Rigger: Josué Monae MD #### HIVCMB, PHEP #### [facility] [address] [place] [address] Parachute Harness Rigger: Thang Nielsen MD HIV Screenon 11-15-2019 HIV Ag/Ab NONREACTIVE NONREACTIVE [place] Comment on above: No laboratory eviden ce of HIV infection. If acute HIV infection is suspected, consider testing for HIV-1 RNA. Hepatitis Acute [facility] 11-14 Hep A Ab,IgM Non-Reactive Normal NR [facility] Comment on above: Performed By: #### C BC, CP, HCG #### [address] [place], [place] [phone] Parachute Harness Rigger: Arnoldo Soni MD #### PHEP, HIVCMB #### [facility] [address] [place] [address] Parachute Harness Rigger: Thang Nielsen MD Hep B Core Ab,IgM Non-Reactive Normal NR [facility] Comment on above: Performed By: #### C BC, CP, HCG #### [address] [place], [place] 786[address]83 Parachute Harness Rigger: Arnoldo Soni MD #### PHEP, HIVCMB #### [facility] [address] [place] [address] Parachute Harness Rigger: Thang Nielsen MD Hep B Surf Ag Non-Reactive Normal NR [facility] Comment on above: Performed By: #### C BC, CP, HCG #### [facility] [address] [place], [place] [phone] Parachute Harness Rigger: Arnoldo Soni MD #### PHEP, HIVCMB #### [address] [place], [place] [phone] Parachute Harness Rigger: Thang Nielsen MD Hep C Ab Reactive Abnormal NR [facility] Comment on above: Result Comment: The hepatitis C procedure used in our laboratory is a Chemiluminescent test specific for three recombinant HCV antigens. A negative anti-HCV result indicates that the antibodies to hepatitis C virus are not present at this time. Individuals with reactive anti-HCV should be considered infected and infectious until proven otherwise. Confirmation of all equivocal or reactive results is recommended by ordering HCV RNA by PCR. Results reported to the appropriate Health Department Performed By: #### C CAROL, CP, HCG #### [address] [place] [phone] Parachute Harness Rigger: Arnoldo Soni MD #### PHEP, HIVCMB #### [address] [place] [address] Parachute Harness Rigger: Thang Nielsen MD Hepatitis Panel, Acuteon HAV IgM IA Qn (S) NONREACTIVE NONREACTIVE [place] Hep B Core Ab, IgM NONREACTIVE NONREACTIVE [place] Hepatitis B Surface Ag NONREACTIVE NONREACTIVE [place] Hepatitis C Ab REACTIVE Abnormal NONREACTIVE [place], [place] Comment on above: The hepatitis C procedure used in our laboratory is a Chemiluminescent test specific for three recombinant HCV antigens. A negative anti-HCV result indicates that the antibodies to hepatitis C virus are not present at this time. Individuals with reactive anti-HCV should be considered infected and infectious until proven otherwise. Confirmation of all equivocal or reactive results is recommended by ordering HCV RNA by PCR. Results reported to the appropriate Health Department Interpretation and review of laboratory results Abnormal [place] Metabolic Panelon 11-15-2019 GFR/1.73 sq M predicted among non-blacks MDRD (S/P/Bld) [Vol rate/Area] [place] Comment on above: Stage 1: Some kidney damage normal GFR Stage 2: Mild kidney damage GFR 60-89 Stage 3: Moderate kidney damage GFR 30-59 Stage 4: Severe kidney damage GFR 15-29 Stage 5: Severe kidney damage GFR <15 ESRD - chronic treatment by dialysis or transplant Average GFR for 30-3 9 years old: 107 mL/min/1.73sq m Chronic Kidney Disease: <60 mL/min/1.73sq m Kidney failure: <15 mL/min/1.73sq m eGFR calculated using average adult body mass. Additional eGFR calculator available at: http://www.[employer]odgeo.[employer]quity/multiple_crcl_2012.htm *BLOOD CULTUREon 01-02-2019 Bacteria identified Cx Nom (Bld) Clinical Report: (D) Specimen: BLOOD CULTURE Collected: 01/02/2019 09:25 Status: Final Last Updated: 01/07/2019 14:41 (1) Rt bicep CULT RES (Final) No Growth Day 5 Normal [facility] Comment on above: Order Comment: No: D o not add to previous draw Performed By: #### 4 1000, , [id number] #### [facility] [address] Bacteria identified Cx Nom (Bld) Clinical Report: (D) Specimen: BLOOD CULTURE Collected: 01/02/2019 09:25 Status: Final Last Updated: 01/07/2019 14:41 (1) Rt wrist CULT RES (Final) No Growth Day 5 Normal [facility] Comment on above: Order Comment: No: D o not add to previous draw Performed By: #### 4 1000, , 50770 #### [facility] [address] BASIC METABOLIC PANELon 12-08 Calcium [Mass/Vol] 8.7 mg/dL Normal 8.6-10.3 [facility] Comment on above: Order Comment: No: D o not add to previous draw Performed By: #### 4 1000, , 25680 #### [facility] [address] [place] [address], [place] Chloride [Moles/Vol] 110 mmol/L High 98-107 [facility] Comment on above: Order Comment: No: D o not add to previous draw Performed By: #### 4 1000, 87305, 84911 #### [facility] [address] [place] [address], [place] CO2 [Moles/Vol] 23 mmol/L Normal 21-31 [facility] Comment on above: Order Comment: No: D o not add to previous draw Performed By: #### 4 1000, , 39293 #### [facility] [address] [place] [address], [place] Creatinine [Mass/Vol] 0.52 mg/dL Low 0.60-1.20 [facility] Comment on above: Order Comment: No: D o not add to previous draw Performed By: #### 4 1000, , 12710 #### [facility] [address] [place] [address], [place] GFR/1.73 sq M predicted among blacks MDRD (S/P/Bld) [Vol rate/Area] mL/min/{1.73_m2} Normal >60 [facility] Comment on above: Order Comment: No: D o not add to previous draw Performed By: #### 4 1000, , 92941 #### [facility] [address] [place] [address], [place] GFR/1.73 sq M predicted among non-blacks MDRD (S/P/Bld) [Vol rate/Area] mL/min/{1.73_m2} Normal >60 [facility] Comment on above: Order Comment: No: D o not add to previous draw Performed By: #### 4 1000, , 66108 #### [facility] [address] [place] [address], [place] Glucose [Mass/Vol] 94 mg/dL Normal 70-100 [facility] Comment on above: Order Comment: No: D o not add to previous draw Performed By: #### 4 1000, 04726, 75477 #### [facility] [address] [place] [address], [facility] Potassium [Moles/Vol] 3.8 mmol/L Normal 3.5-5.1 [facility] Comment on above: Order Comment: No: D o not add to previous draw Performed By: #### 4 1000, , 24999 #### [facility] [address] [place] [address], [facility] Sodium [Moles/Vol] 140 mmol/L Normal 136-145 [facility] Comment on above: Order Comment: No: D o not add to previous draw Performed By: #### 4 1000, , 61885 #### [facility] [address] [place] [address], [facility] Urea nitrogen [Mass/Vol] 4 mg/dL Low 7-25 [facility] Comment on above: Order Comment: No: D o not add to previous draw Performed By: #### 4 1000, , 08583 #### [facility] [address] [place] [address], [facility] C REACTIVE PROTEINon 019 CRP [Mass/Vol] 32.9 mg/L High 0.0-7.0 [facility] Comment on above: Order Comment: No: D o not add to previous draw Performed By: #### 4 1000, 27005, 22877 #### [facility] [address] [place] [id number], [facility] CBC COMPLETE BLOOD COUNTon 03-04-2018 Erythrocyte distribution width (RBC) [Ratio] 13.2 % Normal 11.5-15.0 [facility] Comment on above: Order Comment: No: D o not add to previous draw Performed By: #### 5 0608, 17718 #### [facility] [address] [place] [address], [facility] Hematocrit (Bld) [Volume fraction] 34.0 % Low 36.0-45.0 [facility] Comment on above: Order Comment: No: D o not add to previous draw Performed By: #### 5 06, 55492 #### [facility] [address] [place] [id number], [facility] Hemoglobin (Bld) [Mass/Vol] 11.2 g/dL Low 12.0-15.0 [facility] Comment on above: Order Comment: No: D o not add to previous draw Performed By: #### 5 607, 44684 #### [facility] [address] [facility] [facility] [place] [address], [facility] MCH (RBC) [Entitic mass] 30.9 pg Normal 27.0-33.0 [facility] Comment on above: Order Comment: No: D o not add to previous draw Performed By: #### 5 607, 75247 #### [facility] [address] [place] [address], [facility] MCHC (RBC) [Mass/Vol] 32.9 g/dL Normal 32.0-35.0 [facility] Comment on above: Order Comment: No: D o not add to previous draw Performed By: #### 5 607, 92014 #### [facility] [address] [place] [address], [facility] MCV (RBC) [Entitic vol] 93.7 fL Normal 82.0-98.0 [facility] Comment on above: Order Comment: No: D o not add to previous draw Performed By: #### 5 607, 77435 #### [facility] [address] [place] [address], [facility] Nucleated RBC/100 WBC (Bld) [Ratio] 0 % Normal 0-0 [facility] Comment on above: Order Comment: No: D o not add to previous draw Performed By: #### 5 607, 28037 #### [facility] [address] [place] [address], [facility] PLAT CNT 534 10*3/uL High 150-400 [facility] Comment on above: Order Comment: No: D o not add to previous draw Performed By: #### 5 0608, 52485 #### [facility] [address] [place] [address], [facility] RBC (Bld) [#/Vol] 3.63 10*6/uL Low 3.80-5.00 [facility] Comment on above: Order Comment: No: D o not add to previous draw Performed By: #### 5 0608, 24521 #### [facility] [address] [place] [address], [facility] WBC (Bld) [#/Vol] 7.69 10*3/uL Normal 4.00-10.60 [facility] Comment on above: Order Comment: No: D o not add to previous draw Performed By: #### 5 0608, 71142 #### [facility] [address] [place] [address], [facility] SEDIMENTATION RATEon 1127-2 019 SED RATE 60 mm/hr High 0-20 [facility] Comment on above: Order Comment: No: D o not add to previous draw Performed By: #### 4 1000, 14802, 58354 #### [address] HAND LEFT 3 [facility] 01-01-2019 HAND LEFT 3 S [facility] Department of Radiology [address] [place] [id number] Patient Name: MORRIS DURAN : 1985 Sex: F Age: Race: White Pt. Location: [address] [place] [address] Patient Status: D Ordered Date: 01/01/2019 10:40:00 AM Completed Date: 01/01/2019 01:09 PM Requesting Provider: EMERSON KOCH Attending Provider: BRIANNA LOPEZ Report Copy To: Signs & Symptoms: Gangrene History: See Comments Comments: R/O Osteomyelitis Exam: HAND LEFT 3 VWS HAND LEFT 3 S 01/01/2019 1:09 PM EST SIGNS AND SYMPTOMS: Gangrene TECHNOLOGIST COMMENTS: pt states pain in lt hand , unhealing sore on top of hand from Iv drug use QUESTION FOR THE RADIOLOGIST: R/O Osteomyelitis PROTOCOL: AP,Lateral and Oblique views were obtained. COMPARISON: None FINDINGS: Soft tissues: Dorsal soft tissue swelling. Bones: Intact Joints: Preserved IMPRESSION: 1. No evidence of bony erosion or fracture. Dorsal soft tissue swelling. Approved by:Bear Guillaume on 01/01/2019 7:22 PM EST. I, Dante Hill, have reviewed the images and report and concur with these findings. Electronically signed by:Dante Hill. Transcribed by: [email or web address], User Resident: BEAR CHAMPION Electronically Signed by: DANTE HILL @ 01/04/2019 04:45 PM I personally read this/these film(s) with this resident Normal [facility] Comment on above: Order Comment: No: D o not add to previous draw MRI LUMBAR SPINE W WO CONTRA STon 01-01-2019 MRI LUMBAR SPINE W WO CONTRAST [facility] Department of Radiology [address] [place] [phone] Patient Name: MORRIS DURAN : 1985 Sex: F Age: Race: White Pt. 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 R/o epidural abscess PROTOCOL: The following pulse sequences were utilized when imaging the lumbar spine: sagittal T2, sagittal T1, sagittal STIR, axial T2, and axial T1. Post contrast images obtained in sagittal T1 and axial T1. CONTRAST: Contrast: DOTAREM, 20 milliliter, Intravenous COMPARISON: None. FINDINGS Alignment: Normal Vertebral bodies: Abnormal marrow signal identified in the T12 vertebral body. This correlates with some mild enhancement after contrast administration and there is a small amount of reactive soft tissue change anterior to the T12 vertebral body. Disc spaces: Normal The conus terminates at the L1 level. No epidural or paraspinous fluid collection is appreciated At T12-L1: There is a normal disc, central canal, and neural foramen. At L1-L2: There is a normal disc, central canal, and neural foramen. At L2-L3: There is a normal disc, central canal, and neural foramen. At L3-L4: Mild facet hypertrophy but no canal stenosis or foraminal narrowing At L4-L5: Mild facet hypertrophy but no canal stenosis or foraminal narrowing At L5-S1: There is a normal disc, central canal, and neural foramen. On postcontrast imaging there is some enhancement in the inferior aspect of the T12 vertebral body. IMPRESSION: Marrow edema and abnormal enhancement in the T12 vertebral body but no evidence of epidural abscess and no evidence of enhancement within the disc spaces to suggest typical osteomyelitis-discit is. Atypical pyogenic spondylitis in T12 vertebral body cannot be excluded. Isolated vertebral body infection may represent an early manifestation of more typical osteomyelitis discitis. Cannot exclude atypical infectious/inflammat ory spondylitis such as TB or brucellosis. There is some reactive soft tissue change and mild edema in the paraspinous soft tissues anteriorly Electronically signed by:Sivan Kimble. Transcribed by: [email or web address], User Resident: Electronically Signed by: SIVAN KIMBLE @ 01/02/2019 10:10 AM Normal [facility] Comment on above: Order Comment: No: D o not add to previous draw URINALYSIS REFLEXon 01-02-20 19 Appearance (U) SL CLOUDY Abnormal CLEAR [facility] Comment on above: Order Comment: No: D o not add to previous draw Criteria for reflexing a culture was not met. Please call the lab at [phone] within 24 hours of collection time if culture is needed Performed By: #### 3 0972 #### [facility] [address] [facility] [place] [address], [facility] Bilirubin [Mass/Vol] Negative Normal NEGATIVE [facility] Comment on above: Order Comment: No: D o not add to previous draw Criteria for reflexing a culture was not met. Please call the lab at [phone] within 24 hours of collection time if culture is needed Performed By: #### 3 0949 #### [facility] [address] [place] [address], [place] BLOOD Negative Normal NEGATIVE [facility] Comment on above: Order Comment: No: D o not add to previous draw Criteria for reflexing a culture was not met. Please call the lab at [phone] within 24 hours of collection time if culture is needed Performed By: #### 3 0965 #### [facility] [address] [place] [address], [facility] Color (U) YELLOW Normal YELLOW [facility] Comment on above: Order Comment: No: D o not add to previous draw Criteria for reflexing a culture was not met. Please call the lab at [phone] within 24 hours of collection time if culture is needed Performed By: #### 3 0965 #### [facility] [address] [place] [address], [facility] EPIS MANY Abnormal FEW,OCC,NONE SEEN [facility] Comment on above: Order Comment: No: D o not add to previous draw Criteria for reflexing a culture was not met. Please call the lab at [phone] within 24 hours of collection time if culture is needed Performed By: #### 3 0965 #### [facility] [address] [facility] [address], [facility] Glucose [Mass/Vol] Negative Normal NEGATIVE [facility] Comment on above: Order Comment: No: D o not add to previous draw Criteria for reflexing a culture was not met. Please call the lab at [phone] within 24 hours of collection time if culture is needed Performed By: #### 3 0965 #### [facility] [address] [place] [address], [facility] KETONE 80 mg/dL Abnormal NEGATIVE [facility] Comment on above: Order Comment: No: D o not add to previous draw Criteria for reflexing a culture was not met. Please call the lab at [phone] within 24 hours of collection time if culture is needed Performed By: #### 3 0965 #### [facility] [address] [place] [address], [facility] LEUK MARIANA Negative Normal NEGATIVE [facility] Comment on above: Order Comment: No: D o not add to previous draw Criteria for reflexing a culture was not met. Please call the lab at [phone] within 24 hours of collection time if culture is needed Performed By: #### 3 0965 #### [facility] [address] [facility] [place] [address], [facility] MUCUS THREADS FEW Abnormal NONE SEEN [facility] Comment on above: Order Comment: No: D o not add to previous draw Criteria for reflexing a culture was not met. Please call the lab at [phone] within 24 hours of collection time if culture is needed Performed By: #### 3 0965 #### [facility] [address] [facility] [place] [address], [facility] Nitrite Ql (U) Negative Normal NEGATIVE [facility] Comment on above: Order Comment: No: D o not add to previous draw Criteria for reflexing a culture was not met. Please call the lab at [phone] within 24 hours of collection time if culture is needed Performed By: #### 3 0965 #### [facility] [address] [place] [address], [facility] pH (Bld) 5.0 Normal 5.0-8.0 [facility] Comment on above: Order Comment: No: D o not add to previous draw Criteria for reflexing a culture was not met. Please call the lab at [phone] within 24 hours of collection time if culture is needed Performed By: #### 3 0965 #### [facility] [address] [place] [address], [facility] Protein (U) [Mass/Vol] 30 mg/dL Abnormal NEGATIVE [facility] Comment on above: Order Comment: No: D o not add to previous draw Criteria for reflexing a culture was not met. Please call the lab at [phone] within 24 hours of collection time if culture is needed Performed By: #### 3 0965 #### [facility] [address] [place] [address], [facility] RBC (U) [#/Vol] 0-2 Abnormal NONE SEEN [facility] Comment on above: Order Comment: No: D o not add to previous draw Criteria for reflexing a culture was not met. Please call the lab at [phone] within 24 hours of collection time if culture is needed Performed By: #### 3 0965 #### [facility] [address] SPEC GRAV 1.028 High 1.015-1.020 [facility] Comment on above: Order Comment: No: D o not add to previous draw Criteria for reflexing a culture was not met. Please call the lab at [phone] within 24 hours of collection time if culture is needed Performed By: #### 3 0965 #### [facility] [address] [place] [address], [facility] WBC UA 6-10 Abnormal NONE SEEN [facility] Comment on above: Order Comment: No: D o not add to previous draw Criteria for reflexing a culture was not met. Please call the lab at [phone] within 24 hours of collection time if culture is needed Performed By: #### 3 0965 #### [facility] [address] [facility] [address], [facility] AMMONIA BLOODon 12-31-2018 Ammonia (P) [Mass/Vol] 42 umol/L Normal 16-53 [facility] Comment on above: Order Comment: No: D o not add to previous draw Performed By: #### 2 1408 #### [facility] [address] [facility]. [address] BASIC METABOLIC PANELon 12-08 Calcium [Mass/Vol] 8.9 mg/dL Normal 8.6-10.3 [facility] Comment on above: Order Comment: No: D o not add to previous draw Performed By: #### 4 1000, 13473, 76484 #### [facility] [address] [facility] [place] [address], [facility] Chloride [Moles/Vol] 108 mmol/L High 98-107 [facility] Comment on above: Order Comment: No: D o not add to previous draw Performed By: #### 4 1000, 91072, 66874 #### [facility] [address] [place] [address], [place] CO2 [Moles/Vol] 23 mmol/L Normal 21-31 [facility] Comment on above: Order Comment: No: D o not add to previous draw Performed By: #### 4 1000, 74602, 98564 #### [facility] [address] [place] [address], [place] Creatinine [Mass/Vol] 0.54 mg/dL Low 0.60-1.20 [facility] Comment on above: Order Comment: No: D o not add to previous draw Performed By: #### 4 1000, , 78401 #### [facility] [address] [place] [address], [place] GFR/1.73 sq M predicted among blacks MDRD (S/P/Bld) [Vol rate/Area] mL/min/{1.73_m2} Normal >60 [facility] Comment on above: Order Comment: No: D o not add to previous draw Performed By: #### 4 1000, , 91573 #### [facility] [address] [place] [address], [place] GFR/1.73 sq M predicted among non-blacks MDRD (S/P/Bld) [Vol rate/Area] mL/min/{1.73_m2} Normal >60 [facility] Comment on above: Order Comment: No: D o not add to previous draw Performed By: #### 4 1000, , 69910 #### [facility] [address] [place] [address], [place] Glucose [Mass/Vol] 66 mg/dL Low 70-100 [facility] Comment on above: Order Comment: No: D o not add to previous draw Performed By: #### 4 1000, , 84737 #### [facility] [address] [place] [address], [place] Potassium [Moles/Vol] 3.6 mmol/L Normal 3.5-5.1 [facility] Comment on above: Order Comment: No: D o not add to previous draw Performed By: #### 4 1000, 99624, 70193 #### [facility] [address] [place] [address], [facility] Sodium [Moles/Vol] 140 mmol/L Normal 136-145 [facility] Comment on above: Order Comment: No: D o not add to previous draw Performed By: #### 4 1000, 59442, 22171 #### [facility] [address] [place] [address], [facility] Urea nitrogen [Mass/Vol] 8 mg/dL Normal 7-25 [facility] Comment on above: Order Comment: No: D o not add to previous draw Performed By: #### 4 1000, 06016, 08887 #### [facility] [address] [place] [address], [facility] CBC W/DIFFon 12-31-2018 ABS BASOPHILS 0.0 10*3/uL Normal 0.0-0.2 [facility] Comment on above: Order Comment: No: D o not add to previous draw Performed By: #### 5 0103 #### [facility] [address] [facility] [address], [facility] ABS IMM GRANS 0.0 10*3/uL Normal 0.0-0.2 [facility] Comment on above: Order Comment: No: D o not add to previous draw Performed By: #### 5 0103 #### [facility] [address] [place] [address], [facility] ABS NEUTROPHILS 6.8 10*3/uL Normal 1.6-7.6 [facility] Comment on above: Order Comment: No: D o not add to previous draw Performed By: #### 5 0103 #### [facility] [address] [place] [address], [facility] Basophils/100 WBC (Bld) 0.3 % Normal 0.0-1.0 [facility] Comment on above: Order Comment: No: D o not add to previous draw Performed By: #### 5 0103 #### [facility] [address] [place] [address], [facility] Eosinophils (Bld) [#/Vol] 0.3 10*3/uL Normal 0.0-0.5 [facility] Comment on above: Order Comment: No: D o not add to previous draw Performed By: #### 5 0103 #### [facility] [address] [place] [address], [facility] Eosinophils/100 WBC (Bld) 2.9 % Normal 0.0-6.0 [facility] Comment on above: Order Comment: No: D o not add to previous draw Performed By: #### 5 0103 #### [facility] [address] [facility] [address], [facility] Erythrocyte distribution width (RBC) [Ratio] 12.8 % Normal 11.5-15.0 [facility] Comment on above: Order Comment: No: D o not add to previous draw Performed By: #### 5 0103 #### [facility] [address] [facility] [address], [facility] Hematocrit (Bld) [Volume fraction] 33.6 % Low 36.0-45.0 [facility] Comment on above: Order Comment: No: D o not add to previous draw Performed By: #### 5 0103 #### [facility] [address] [facility] [place] [address], [facility] Hemoglobin (Bld) [Mass/Vol] 10.9 g/dL Low 12.0-15.0 [facility] Comment on above: Order Comment: No: D o not add to previous draw Performed By: #### 5 0103 #### [facility] [address] [place] [address], [facility] IMMATURE GRANS 0.4 % Normal 0.0-1.0 [facility] Comment on above: Order Comment: No: D o not add to previous draw Performed By: #### 5 0103 #### [facility] [address] [place] [address], [facility] Lymphocytes (Bld) [#/Vol] 1.9 10*3/uL Normal 1.2-4.0 [facility] Comment on above: Order Comment: No: D o not add to previous draw Performed By: #### 5 0103 #### [facility] [address] [place] [address], [facility] Lymphocytes/100 WBC (Bld) 19.6 % Low 20.0-45.0 [facility] Comment on above: Order Comment: No: D o not add to previous draw Performed By: #### 5 0103 #### [facility] [address] [facility] [address], [facility] MCH (RBC) [Entitic mass] 30.6 pg Normal 27.0-33.0 [facility] Comment on above: Order Comment: No: D o not add to previous draw Performed By: #### 5 0103 #### [facility] [address] [facility] [address], [facility] MCHC (RBC) [Mass/Vol] 32.4 g/dL Normal 32.0-35.0 [facility] Comment on above: Order Comment: No: D o not add to previous draw Performed By: #### 5 0103 #### [facility] [address] [place] [address], [facility] MCV (RBC) [Entitic vol] 94.4 fL Normal 82.0-98.0 [facility] Comment on above: Order Comment: No: D o not add to previous draw Performed By: #### 5 0103 #### [facility] [address] [place] [address], [facility] Monocytes (Bld) [#/Vol] 0.8 10*3/uL Normal 0.1-1.0 [facility] Comment on above: Order Comment: No: D o not add to previous draw Performed By: #### 5 0103 #### [facility] [address] [place] [address], [facility] MONOS 7.9 % Normal 5.0-12.0 [facility] Comment on above: Order Comment: No: D o not add to previous draw Performed By: #### 5 0103 #### [facility] [address] [place] [address], [facility] Neutrophils/100 WBC (Bld) 68.9 % Normal 40.0-72.0 [facility] Comment on above: Order Comment: No: D o not add to previous draw Performed By: #### 5 0103 #### [facility] [address] [place] [address], [facility] Nucleated RBC/100 WBC (Bld) [Ratio] 0 % Normal 0-0 [facility] Comment on above: Order Comment: No: D o not add to previous draw Performed By: #### 5 0103 #### [facility] [address] [place] [address], [facility] PLAT CNT 452 10*3/uL High 150-400 [facility] Comment on above: Order Comment: No: D o not add to previous draw Performed By: #### 5 0103 #### [facility] [address] [place] [id number], [facility] RBC (Bld) [#/Vol] 3.56 10*6/uL Low 3.80-5.00 [facility] Comment on above: Order Comment: No: D o not add to previous draw Performed By: #### 5 0103 #### [facility] [address] [place] [address], [place] WBC (Bld) [#/Vol] 9.82 10*3/uL Normal 4.00-10.60 [facility] Comment on above: Order Comment: No: D o not add to previous draw Performed By: #### 5 0103 #### [facility] [address] [place] [address], [facility] LITHIUMon 12-31-2018 Vineyards [Moles/Vol] Normal [facility] Comment on above: Order Comment: Yes: Add to Previous draw if able Result Comment: Test Performed by [facility] [address] [place] [address] 79015 - Released 12/31/2018 21:21 Result changed by IF on 12/31/2018 21:21. The previous value was Test Performed by [facility] [address] [place] [address] [phone] Vineyards [Moles/Vol] mmol/L Low 0.6-1.2 [facility] Comment on above: Order Comment: Yes: Add to Previous draw if able LIVER BATTERYon 12-31-2018 Albumin [Mass/Vol] 3.4 g/dL Low 3.5-5.7 The [facility] Comment on above: Order Comment: Yes: Add to Previous draw if able Performed By: #### 9 9909 #### [facility] [address] [place] [address], [facility] ALKALINE PHOSPH 66 IU/L Normal 34-104 [facility] Comment on above: Order Comment: Yes: Add to Previous draw if able Performed By: #### 9 9909 #### [facility] [address] [facility] [address], [facility] ALT [Catalytic activity/Vol] 40 U/L Normal 7-52 [facility] Comment on above: Order Comment: Yes: Add to Previous draw if able Performed By: #### 9 9909 #### [facility] [address] [place] [address], [facility] AST [Catalytic activity/Vol] 41 U/L High 13-39 [facility] Comment on above: Order Comment: Yes: Add to Previous draw if able Performed By: #### 9 9909 #### [facility] [address] [place] [address], [place] Bilirubin [Mass/Vol] 0.4 mg/dL Normal 0.3-1.0 [facility] Comment on above: Order Comment: Yes: Add to Previous draw if able Performed By: #### 9 9909 #### [facility] [address] [place] [address], [place] Bilirubin.direct [Mass/Vol] 0.2 mg/dL Normal 0.0-0.2 [facility] Comment on above: Order Comment: Yes: Add to Previous draw if able Performed By: #### 9 9909 #### [facility] [address] [place] [address], [place] Protein [Mass/Vol] 6.1 g/dL Normal 6.0-8.3 [facility] Comment on above: Order Comment: Yes: Add to Previous draw if able Performed By: #### 9 9909 #### [facility] [address] [place] [address], [facility] MAGNESIUM BLOODon 12-31-2018 Magnesium [Mass/Vol] 2.0 mg/dL Normal 1.9-2.7 [facility] Comment on above: Order Comment: No: D o not add to previous draw Performed By: #### 4 1000, , 13743 #### [facility] [address] [place] [address], [place] PHOSPHORUS BLOODon 9 Phosphate [Mass/Vol] 2.5 mg/dL Normal 2.5-5.0 [facility] Comment on above: Order Comment: No: D o not add to previous draw Performed By: #### 4 1000, [id number], [id number] #### [facility] [address] [place] [address], [place] PROCALCITONINon 12-31-2018 PROCALCITONIN 0.10 ng/mL Normal 0.00-0.10 [facility] Comment on above: Order Comment: No: D o not add to previous draw Result Comment: Susp ected Lower Respiratory Tract Infection: 0.1-0.25ng/mL- Low likelihood for bacterial infection;Antibiotics discouraged.* >0.25ng/mL- Increased likelihood bacterial infection;Antibiotics encouraged. Suspected Sepsis: Strongly consider initiating antibiotics in all unstable patients. 0.1-0.5ng/mL- Low likelihood for sepsis; Antibiotics discouraged.* >0.5ng/mL- Increased likelihood sepsis; Antibiotics encouraged. >2.0ng/mL- High risk of sepsis/septic shock; Antibiotics strongly encouraged. *Recommend retesting PCT within 6-12hours if clinically indicated and initial PCT<0.5ng/mL Performed By: #### 3 1488 #### [facility] [address] [place], [place] [id number] [place] [address] Basic Metabolic Profon 06-10 (cont.) Normal [facility] Comment on above: Result Comment: Aver age GFR for 30-39 years old: 107 mL/min/1.73sq m Chronic Kidney Disease: <60 mL/min/1.73sq m Kidney failure: <15 mL/min/1.73sq m eGFR calculated using average adult body mass. Additional eGFR calculator available at: http://www.Lodgeo.Connequity/multiple_crcl_2012.htm Performed By: #### U MAO ROSARIO #### [facility] [address] [place] [address] Anion gap molar conc 12 mmol/L Normal 9-17 [facility] Comment on above: Performed By: #### U MAO ROSARIO #### [facility] [address] [place] [address]103 Calcium mass conc 9.6 mg/dL Normal 8.6-10.4 [facility] Comment on above: Performed By: #### U MAO ROSARIO #### [facility] [address] [place] [address] 35603 Chloride molar conc 104 mmol/L Normal 98-107 [facility] Comment on above: Performed By: #### MAO MASTERS #### [facility] [address] [place] [address] 08729 CO2 molar conc 21 mmol/L Normal 20-31 [facility] Comment on above: Performed By: #### MAO MASTERS #### [facility] [address] [place] [address] 77270 Creatinine mass conc 0.75 mg/dL Normal 0.50-0.90 [facility] Comment on above: Performed By: #### MAO MASTERS #### [facility] [address] [place] [address]43 GFR, Amer >60 Normal >60 [facility] Comment on above: Performed By: #### U MAO ROSARIO #### [facility] [address] [place] [address] GFR,non Amer >60 Normal >60 [facility] Comment on above: Performed By: #### U MAO ROSARIO #### [facility] [address] [place] [address] 39937 Glucose mass conc 105 mg/dL High 70-99 [facility] Comment on above: Performed By: #### U MAO ROSARIO #### [facility] [address] [place] [address] 42604 Potassium molar conc 3.9 mmol/L Normal 3.7-5.3 [facility] Comment on above: Performed By: #### MAO MASTERS #### [facility] [address] [place] [address] 73173 Sodium molar conc 137 mmol/L Normal 135-144 [facility] Comment on above: Performed By: #### MAO MASTERS #### [facility] [address] [place] [address] 00569 Urea nitrogen mass conc 12 mg/dL Normal 6-20 [facility] Comment on above: Performed By: #### MAO MASTERS #### [facility] [address] [place] [address] 72166 BUN/CRE Ratio NOT REPORTED Normal - [facility] Comment on above: Performed By: #### MAO MASTERS #### [facility] [address] [place] [address] 81928 Staging: NOT REPORTED Normal [facility] Comment on above: Performed By: #### MAO MASTERS #### [facility] [address] [place] [address] 38596 CBC with Diffon 06-10-2018 Abs. Basophil 0.06 k/uL Normal 0.00-0.20 [facility] Comment on above: Performed By: #### MAO MASTERS #### [facility] [address] [place] [address] 52245 Abs.Imm.Granulocyte 0.04 k/uL Normal 0.00-0.30 [facility] Comment on above: Performed By: #### MAO MASTERS #### [facility] [address] [place] [address] 75658 Abs.Neutrophil (Seg) 5.70 k/uL Normal 1.50-8.10 [facility] Comment on above: Performed By: #### U AXMAO #### [facility] [address] [place] [address] 10076 Basophils/100 WBC (Bld) 1 % Normal 0-2 [facility] Comment on above: Performed By: #### U AXMAO #### [facility] [address] [place] [address] 28848 Eosinophils #/vol (Bld) 0.29 10*3/uL Normal 0.00-0.44 [facility] Comment on above: Performed By: #### U AXMAO #### [facility] [address] [place] [address] 41939 Eosinophils/100 WBC (Bld) 3 % Normal 1-4 [facility] Comment on above: Performed By: #### U MAO ROSARIO #### [facility] [address] [place] [address] 73025 Erythrocyte distribution width Ratio (RBC) 11.9 % Normal 11.8-14.4 [facility] Comment on above: Performed By: #### U AXMAO #### [facility] [address] [place] [address] 68404 Hematocrit Volume Fraction (Bld) 42.5 % Normal 36.3-47.1 [facility] Comment on above: Performed By: #### U AXMAO #### [facility] [address] [place] [address] 60399 Hemoglobin mass conc (Bld) 14.0 g/dL Normal 11.9-15.1 [facility] Comment on above: Performed By: #### U AXMAO #### [facility] [address] [place] [address] 25884 Immature granulocytes #/vol (Bld) 0 % Normal 0 [facility] Comment on above: Performed By: #### U AXMAO #### [facility] [address] [place] [address] 43068 Lymphocytes #/vol (Bld) 2.41 10*3/uL Normal 1.10-3.70 [facility] Comment on above: Performed By: #### U AXMAO #### [facility] [address] [place] [address] 61911 Lymphocytes/100 WBC (Bld) 26 % Normal 24-43 [facility] Comment on above: Performed By: #### U AXMAO #### [facility] [address] [place] [address] 17275 MCH Entitic mass (RBC) 30.8 pg Normal 25.2-33.5 [facility] Comment on above: Performed By: #### U AXMAO #### [facility] [address] [place] [address] 93789 MCHC mass conc (RBC) 32.9 g/dL Normal 28.4-34.8 [facility] Comment on above: Performed By: #### U AXMAO #### [facility] [address] [place] [address] 09649 MCV Entitic volume (RBC) 93.4 fL Normal 82.6-102.9 [facility] Comment on above: Performed By: #### U AXMAO #### [facility] [address] [place] [address] 85351 Monocytes #/vol (Bld) 0.86 10*3/uL Normal 0.10-1.20 [facility] Comment on above: Performed By: #### U AXMAO #### [facility] [address] [place] [address] 48554 Monocytes/100 WBC (Bld) 9 % Normal 3-12 [facility] Comment on above: Performed By: #### U AXMAO #### [facility] [address] [place] [address] 58876 Neutrophil (Seg) 61 % Normal 36-65 [facility] Comment on above: Performed By: #### U MAO ROSARIO #### [facility] [address] [place] [address] 23290 NRBC Automated 0.0 per 100 WBC Normal 0.0 [facility] Comment on above: Performed By: #### U AXMAO #### [facility] [address] [place] [address] 60475 Platelet mean volume Entitic volume (Bld) 9.9 fL Normal 8.1-13.5 [facility] Comment on above: Performed By: #### U MAO ROSARIO #### [facility] [address] [place] [address] 71420 Platelets #/vol (Bld) 410 10*3/uL Normal 138-453 [facility] Comment on above: Performed By: #### MAO MASTERS #### [facility] [address] [place] [address] 88012 RBC #/vol (Bld) 4.55 10*6/uL Normal 3.95-5.11 [facility] Comment on above: Performed By: #### U AXMAO #### [facility] [address] [place] [address] 53201 WBC #/vol (Bld) 9.4 10*3/uL Normal 3.5-11.3 [facility] Comment on above: Performed By: #### U AXMAO #### [facility] [address] [place] [address] 65444 Auto Diff Performed NOT REPORTED Normal [facility] Comment on above: Performed By: #### U AXMAO #### [facility] [address] [place] [address] Platelets #/vol (Bld) NOT REPORTED Normal [facility] Comment on above: Performed By: #### U AX, UMICAO #### [facility] [address] [place] [address] RBC morphology finding Nom (Bld) NOT REPORTED Normal [facility] Comment on above: Performed By: #### U AX, UMICAO #### [facility] [address] [place] [address] WBC Morphology NOT REPORTED Normal [facility] Comment on above: Performed By: #### U AX, UMICAO #### [facility] [address] [place] [address] CT ABDOMEN PELVIS WO CONTRAS Ton 06-10-2018 CT ABDOMEN PELVIS WO CONTRAST EXAMINATION: CT OF THE ABDOMEN AND PELVIS WITHOUT CONTRAST 06/10/2018 9:28 pm TECHNIQUE: CT of the abdomen and pelvis was performed without the administration of intravenous contrast. Multiplanar reformatted images are provided for review. Dose modulation, iterative reconstruction, and/or weight based adjustment of the mA/kV was utilized to reduce the radiation dose to as low as reasonably achievable. COMPARISON: None. HISTORY: ORDERING SYSTEM PROVIDED HISTORY: right flank colic TECHNOLOGIST PROVIDED HISTORY: Ordering Physician Provided Reason for Exam: rt flank pain Acuity: Acute Type of Exam: Initial FINDINGS: Lower Chest: The lung bases are clear. Organs: The liver, spleen, gallbladder, pancreas and adrenal glands appear unremarkable for a non contrasted study. The kidneys demonstrate no calcifications. No hydronephrosis is seen. GI/Bowel: Evaluation of bowel is limited as no enteric contrast was given. No dilated loops of bowel are seen. The appendix is not dilated. Pelvis: No pelvic masses or fluid collections are seen. Peritoneum/Retroperi toneum: The abdominal aorta is not aneurysmal. There are shotty mesenteric and retroperitoneal lymph nodes but no lymphadenopathy is seen. Bones/Soft Tissues: No acute bony abnormalities are noted. IMPRESSION: 1. No acute intra-abdominal abnormality. 2. No acute intrapelvic abnormality. 3. No urinary tract calcifications. Interpreted by: Sean Garcia MD Signed by: Sean Garcia MD 06/10/18 Final result Normal [facility] HCG Screen, Bloodon 06-11-19 19 HCG Qn Negative Normal NEG [facility] Comment on above: Result Comment: Spec imens with hCG levels near the threshold of the test (25 mIU/mL) may give a negative or indeterminate result. In such cases, another test should be performed with a new specimen in 48-72 hours. If early is suspected clinically in this setting, correlation with quantitative serum b-hCG level is suggested. [facility] has confirmed the use of plasma for this test. This has not been cleared or approved by the U.S. Food and Drug Administration. The FDA has determined that such clearance is not necessary. Performed By: #### U MAO ROSARIO #### [facility] [address] [place] [address] [id number] Cult,Urine,CCon 06-09-2018 Cult,Urine,CC Specimen Description .CLEAN CATCH URINE Special Requests NOT REPORTED Culture NO SIGNIFICANT GROWTH Report Status FINAL 06/09/2018 Normal [facility] Comment on above: Performed By: #### MAO MASTERS #### [facility] [address] [place] [address] [id number] Drug Scr, Abuse, Uron 2018 Amphetamine(s),Ur Positive Abnormal NEG [facility] Comment on above: Result Comment: (Positive cutoff 1000 ng/mL) Performed By: #### U AXMAO #### [facility] [address] [place] [address] [phone] Barbiturate(s),Ur Negative Normal NEG [facility] Comment on above: Result Comment: (Positive cutoff 200 ng/mL) Performed By: #### U AXMAO #### [facility] [address] [place] [address] [phone] Base excess Calculated molar conc (Bld) Negative Normal NEG [facility] Comment on above: Result Comment: (Positive cutoff 300 ng/mL) Performed By: #### U AXMANUELO #### [facility] [address] [place] [address] 17657 Benzodiazepine(s) Negative Normal NEG [facility] Comment on above: Result Comment: (Positive cutoff 200 ng/mL) Performed By: #### U AX UMICAO #### [facility] [address] [place] [address] 88472 Cannabinoid(s),Ur Negative Normal NEG [facility] Comment on above: Result Comment: (Positive cutoff 50 ng/mL) Performed By: #### U AX UMKAUSHIKO #### [facility] [address] [place] [address] 55747 Interpretive Info Assay provides medical screening only. The absence of expected drug(s) and/or Normal [facility] Comment on above: Result Comment: meta bolite(s) may indicate diluted or adulterated urine, limitations of testing or timing of collection. Testing for legal purposes should be confirmed by another method. To request confirmation of test result, please call the lab within 7 days of sample submission. Performed By: #### U AX UMKAUSHIKO #### [facility] [address] [place] [address] 32625 Methadone Ql (U) Negative Normal NEG [facility] Comment on above: Result Comment: (Positive cutoff 300 ng/mL) Performed By: #### U AXMANUELO #### [facility] [address] [place] [address] 75399 Opiate(s), Ur Negative Normal NEG [facility] Comment on above: Result Comment: (Positive cutoff 300 ng/mL) Performed By: #### U AXMANUELO #### [facility] [address] [place] [address] 54559 Oxycodone, Urine Negative Normal NEG [facility] Comment on above: Result Comment: (Positive cutoff 100 ng/mL) Performed By: #### U AXMAO #### [facility] [place] [address] Phencyclidine, Ur Negative Normal NEG [facility] Comment on above: Result Comment: (Positive cutoff 25 ng/mL) Performed By: #### U AX, UMICAO #### [facility] [address] [place] [address] 35496 Buprenorphrine, Ur NOT REPORTED Normal NEG [facility] Comment on above: Performed By: #### U AX, UMICAO #### [facility] [address] [place] [address] 16817 MDMA, Urine NOT REPORTED Normal NEG [facility] Comment on above: Performed By: #### U AX, UMICAO #### [facility] [address] [place] [address] 93860 Methamphetamine, Ur NOT REPORTED Normal NEG [facility] Comment on above: Performed By: #### U AX, UMICAO #### [facility] [address] [place] [address] 07046 Protein mass conc (U) NOT REPORTED Normal NEG [facility] Comment on above: Performed By: #### U AX, UMICAO #### [facility] [address] [place] [address] 05080 Tricyclic antidepressants Screen Ql (U) NOT REPORTED Normal NEG [facility] Comment on above: Performed By: #### U AX, UMICAO #### [facility] [address] [place] [address] 78936 UA w/Reflex Cultureon 2018 Bilirubin.direct mass conc Negative Abnormal NEG [facility] Comment on above: Performed By: #### U AX, UMICAO #### [facility] [address] [place] [address] 42032 Comment Culture ordered based on defined criteria. Normal [facility] Comment on above: Performed By: #### U MAO ROSARIO #### [facility] [address] [place] [address] Acetoacetic Acid,Ur Negative Normal NEG [facility] Comment on above: Performed By: #### U MAO ROSARIO #### [facility] [address] [place] [address] Color Nom (U) DARK YELLOW Abnormal YEL [facility] Comment on above: Performed By: #### U AXMAO #### [facility] [place] [address] Glucose mass conc Negative Normal NEG [facility] Comment on above: Performed By: #### U MAO ROSARIO #### [facility] [address] [place] [address] 92370 Hemoglobin mass conc (Bld) TRACE Abnormal NEG [facility] Comment on above: Performed By: #### MAO MASTERS #### [facility] [address] [place] [address] 20959 Leuckocyte Esterase MODERATE Abnormal NEG [facility] Comment on above: Performed By: #### U MAO ROSARIO #### [facility] [address] [place] [address] Nitrite,Ur Positive Abnormal NEG [facility] Comment on above: Performed By: #### U MAO ROSARIO #### [facility] [address] [place] [address] PH,Ur 5.5 Normal 5.0-8.0 [facility] Comment on above: Performed By: #### U MAO ROSARIO #### [facility] [address] [place] [address] Protein mass conc Negative Normal NEG [facility] Comment on above: Performed By: #### U MAO ROSARIO #### [facility] [place] [address] Spec. [place],Ur 1.021 Normal 1.005-1.030 [facility] Comment on above: Performed By: #### U AX, UMICAO #### [facility] [address] [place] [address] 18230 Turbidity CLOUDY Abnormal CLEAR [facility] Comment on above: Performed By: #### U AXMANUELO #### [facility] [address] [place] [address] 20021 Urobilinogen,Ur Normal Normal NORM [facility] Comment on above: Performed By: #### U AXMAO #### [facility] [address] [place] [address] 61128 Urinalysis,Microon 9 ----- Normal [facility] Comment on above: Performed By: #### U AXMAO #### [facility] [address] [place] [address] 63829 Bacteria LM.HPF #/area (Urine sed) FEW Abnormal NONE [facility] Comment on above: Performed By: #### U AX, UMICAO #### [facility] [address] [place] [address] 35659 Epithelial cells LM.HPF #/area (Urine sed) 50 TO 100 Normal 0-5 [facility] Comment on above: Performed By: #### U AX UMICAO #### [facility] [address] [place] [address] 98679 Mucus Strands 2+ Abnormal NONE [facility] Comment on above: Performed By: #### U AX, UMICAO #### [facility] [address] [place] [address] 76441 RBC #/vol (U) None Normal 0-2 [facility] Comment on above: Performed By: #### U AX, UMICAO #### [facility] [address] [place] [address] 38537 WBC #/vol (U) 50 TO 100 Normal 0-5 [facility] Comment on above: Performed By: #### U AX, UMICAO #### [facility] [address] [place] [address] 13171 Amorphous sediment LM Ql (Urine sed) NOT REPORTED Normal NONE [facility] Comment on above: Performed By: #### U AX, UMICAO #### [facility] [address] [place] [address] 58855 Casts LM.LPF #/area (Urine sed) NOT REPORTED Normal 0-2 [facility] Comment on above: Performed By: #### U AX, UMICAO #### [facility] [address] [place] [address] 15757 Crystals LM Nom (Urine sed) NOT REPORTED Normal NONE [facility] Comment on above: Performed By: #### U AX, UMICAO #### [facility] [address] [place] [address] 30884 Epithelial, Renal NOT REPORTED Normal 0 [facility] Comment on above: Performed By: #### U AX, UMICAO #### [facility] [address] [place] [address] 07648 Other Observations NOT REPORTED Normal NREQ [facility] Comment on above: Performed By: #### U AX, UMICAO #### [facility] [address] [place] [address] 77119 Trichomonas NOT REPORTED Normal NONE [facility] Comment on above: Performed By: #### U AX, UMICAO #### [facility] [address] [place] [address] 00283 Yeast LM Ql (Urine sed) NOT REPORTED Normal NONE [facility] Comment on above: Performed By: #### MAO MASTERS #### [facility] [address] [place] [address] 02943 HCG, ,Urineon 06-04 HCG.beta subunit ( test) Ql (U) Negative Normal NEG [facility] Comment on above: Result Comment: Spec imens with hCG levels near the threshold of the test (25 mIU/mL) may give a negative or indeterminate result. In such cases, another test should be performed with a new specimen in 48-72 hours. If early is suspected clinically in this setting, correlation with quantitative serum b-hCG level is suggested. Performed By: #### MAO MASTERS #### [facility] [address] [place] [address] 12596 Urinalysis w/ Microon 2018 ----- Normal [facility] Comment on above: Performed By: #### MAO MASTERS #### [facility] [address] [place] [address] 67283 Crystals LM Nom (Urine sed) CALCIUM OXALATE Abnormal NONE [facility] Comment on above: Result Comment: FEW Performed By: #### MAO MASTERS #### [facility] [address] [place] [address] 58677 Epithelial cells LM.HPF #/area (Urine sed) 0 TO 2 Normal 0-5 [facility] Comment on above: Performed By: #### U MAO ROSARIO #### [facility] [address] [place] [address] 83786 Mucus Strands 1+ Abnormal NONE [facility] Comment on above: Performed By: #### MAO MASTERS #### [facility] [address] [place] [address] 61085 RBC #/vol (U) 0 TO 2 Normal 0-2 [facility] Comment on above: Performed By: #### MAO MASTERS #### [facility] [address] [place] [address] 88415 WBC #/vol (U) 2 TO 5 Normal 0-5 [facility] Comment on above: Performed By: #### U AX, UMICAO #### [facility] [address] [place] [address] 98938 Acetoacetic Acid,Ur TRACE Abnormal NEG [facility] Comment on above: Performed By: #### U AX, DEMIICAO #### [facility] [address] [place] [address] 59841 Bilirubin, SemiQt,Ur Negative Normal NEG [facility] Comment on above: Performed By: #### U AX, DEMIICAO #### [facility] [address] [place] [address] 10974 Color Nom (U) YELLOW Normal YEL [facility] Comment on above: Performed By: #### U AX, DEMIICAO #### [facility] [address] [place] [address] 34884 Glucose,Semi-qnt,Ur Negative Normal NEG [facility] Comment on above: Performed By: #### U AX, UMICAO #### [facility] [address] [place] [address] 22911 Hemoglobin, Ur MODERATE Abnormal NEG [facility] Comment on above: Performed By: #### U AX, DEMIICAO #### [facility] [address] [place] [address] 46619 Leuckocyte Esterase MODERATE Abnormal NEG [facility] Comment on above: Performed By: #### U AX, UMICAO #### [facility] [address] [place] [address] 68983 Nitrite,Ur Negative Normal NEG [facility] Comment on above: Performed By: #### U AXDEMIICAO #### [facility] [address] [place] [address] [place] [address] PH,Ur 5.5 Normal 5.0-8.0 [facility] Comment on above: Performed By: #### U MAO ROSARIO #### [facility] [address] [place] [address] 46543 Protein mass conc (U) TRACE Abnormal NEG [facility] Comment on above: Performed By: #### U MAO ROSARIO #### [facility] [address] [place] [address] 36612 Spec. [place],Ur 1.029 Normal 1.005-1.030 [facility] Comment on above: Performed By: #### U MAO ROSARIO #### [facility] [address] [place] [address] 95437 Turbidity TURBID Abnormal CLEAR [facility] Comment on above: Performed By: #### U MAO ROSARIO #### [facility] [address] [place] [address] 98498 Urobilinogen,Ur Normal Normal NORM [facility] Comment on above: Performed By: #### U AXMAO #### [facility] [address] [place] [address] 92440 Amorphous sediment LM Ql (Urine sed) NOT REPORTED Normal NONE [facility] Comment on above: Performed By: #### U AXMAO #### [facility] [address] [place] [address] 59728 Bacteria LM.HPF #/area (Urine sed) NOT REPORTED Normal NONE [facility] Comment on above: Performed By: #### U AXMAO #### [facility] [address] [place] [address] 31526 Casts LM.LPF #/area (Urine sed) NOT REPORTED Normal 0-2 [facility] Comment on above: Performed By: #### U AXMAO #### [facility] [place] [address] Epithelial, Renal NOT REPORTED Normal 0 [facility] Comment on above: Performed By: #### U AXMAO #### [facility] [address] [place] [address] 68438 Other Observations NOT REPORTED Normal NREQ [facility] Comment on above: Performed By: #### U MAO ROSARIO #### [facility] [address] [place] [address] 54055 Trichomonas NOT REPORTED Normal NONE [facility] Comment on above: Performed By: #### U AXMAO #### [facility] [address] [place] [address] 87342 Yeast LM Ql (Urine sed) NOT REPORTED Normal NONE [facility] Comment on above: Performed By: #### MAO MASTERS #### [facility] [address] [place] [address] 53472 CBC with Diffon 12-06-2017 Abs. Basophil 0.04 k/uL Normal 0.00-0.20 [facility] Comment on above: Performed By: #### C P, TSH, FT4, CDP, LIPRF #### [facility] [address] [place] [address] 14962 Abs.Imm.Granulocyte 0.04 k/uL Normal 0.00-0.30 [facility] Comment on above: Performed By: #### C P, TSH, FT4, CDP, LIPRF #### [facility] [address] [place] [address] 70030 Abs.Neutrophil (Seg) 4.84 k/uL Normal 1.50-8.10 [facility] Comment on above: Performed By: #### C P, TSH, FT4, CDP, LIPRF #### [facility] [address] [place] [address] 74696 Basophils/100 WBC (Bld) 1 % Normal 0-2 [facility] Comment on above: Performed By: #### C P, TSH, FT4, CDP, LIPRF #### [address] [address] Eosinophils #/vol (Bld) 0.33 10*3/uL Normal 0.00-0.44 [facility] Comment on above: Performed By: #### C P, TSH, FT4, CDP, LIPRF #### [address] [address] Eosinophils/100 WBC (Bld) 4 % Normal 1-4 [facility] Comment on above: Performed By: #### C P, TSH, FT4, CDP, LIPRF #### [address] [address] Erythrocyte distribution width Ratio (RBC) 12.4 % Normal 11.8-14.4 [facility] Comment on above: Performed By: #### C P, TSH, FT4, CDP, LIPRF #### [address] 54754 Hematocrit Volume Fraction (Bld) 41.3 % Normal 36.3-47.1 [facility] Comment on above: Performed By: #### C P, TSH, FT4, CDP, LIPRF #### [address] 80806 Hemoglobin mass conc (Bld) 13.8 g/dL Normal 11.9-15.1 [facility] Comment on above: Performed By: #### C P, TSH, FT4, CDP, LIPRF #### [address] 31853 Immature granulocytes #/vol (Bld) 1 % High 0 [facility] Comment on above: Performed By: #### C P, TSH, FT4, CDP, LIPRF #### [address] [address]133 Lymphocytes #/vol (Bld) 2.64 10*3/uL Normal 1.10-3.70 [facility] Comment on above: Performed By: #### C P, TSH, FT4, CDP, LIPRF #### [address] 51651 Lymphocytes/100 WBC (Bld) 30 % Normal 24-43 [facility] Comment on above: Performed By: #### C P, TSH, FT4, CDP, LIPRF #### [address] 20060 MCH Entitic mass (RBC) 31.9 pg Normal 25.2-33.5 [facility] Comment on above: Performed By: #### C P, TSH, FT4, CDP, LIPRF #### [address] 26952 MCHC mass conc (RBC) 33.4 g/dL Normal 28.4-34.8 [facility] Comment on above: Performed By: #### C P, TSH, FT4, CDP, LIPRF #### [address] 58040 MCV Entitic volume (RBC) 95.6 fL Normal 82.6-102.9 [facility] Comment on above: Performed By: #### C P, TSH, FT4, CDP, LIPRF #### [address] 23893 Monocytes #/vol (Bld) 0.90 10*3/uL Normal 0.10-1.20 [facility] Comment on above: Performed By: #### C P, TSH, FT4, CDP, LIPRF #### [address] 69879 Monocytes/100 WBC (Bld) 10 % Normal 3-12 [facility] Comment on above: Performed By: #### C P, TSH, FT4, CDP, LIPRF #### [address] 81932 Neutrophil (Seg) 54 % Normal 36-65 [facility] Comment on above: Performed By: #### C P, TSH, FT4, CDP, LIPRF #### [address] 20114 NRBC Automated 0.0 per 100 WBC Normal 0.0 [facility] Comment on above: Performed By: #### C P, TSH, FT4, CDP, LIPRF #### [address] [address]277 Platelet mean volume Entitic volume (Bld) 9.4 fL Normal 8.1-13.5 [facility] Comment on above: Performed By: #### C P, TSH, FT4, CDP, LIPRF #### [address] 92170 Platelets #/vol (Bld) 374 10*3/uL Normal 138-453 [facility] Comment on above: Performed By: #### C P, TSH, FT4, CDP, LIPRF #### [address] 56146 RBC #/vol (Bld) 4.32 10*6/uL Normal 3.95-5.11 [facility] Comment on above: Performed By: #### C P, TSH, FT4, CDP, LIPRF #### [address] 74068 WBC #/vol (Bld) 8.8 10*3/uL Normal 3.5-11.3 [facility] Comment on above: Performed By: #### C P, TSH, FT4, CDP, LIPRF #### [address] 63145 Auto Diff Performed NOT REPORTED Normal [facility] Comment on above: Performed By: #### C P, TSH, FT4, CDP, LIPRF #### [address] 62644 Platelets #/vol (Bld) NOT REPORTED Normal [facility] Comment on above: Performed By: #### C P, TSH, FT4, CDP, LIPRF #### [address] 35884 RBC morphology finding Nom (Bld) NOT REPORTED Normal [facility] Comment on above: Performed By: #### C P, TSH, FT4, CDP, LIPRF #### [address] 40833 WBC Morphology NOT REPORTED Normal [facility] Comment on above: Performed By: #### C P, TSH, FT4, CDP, LIPRF #### [address] 94870 Comp Metabolic Profon 2017 (cont.) Normal [facility] Comment on above: Result Comment: Aver age GFR for 30-39 years old: 107 mL/min/1.73sq m Chronic Kidney Disease: <60 mL/min/1.73sq m Kidney failure: <15 mL/min/1.73sq m eGFR calculated using average adult body mass. Additional eGFR calculator available at: http://www.Lodge[employer].com/multiple_crcl_2012.htm Performed By: #### C P, TSH, FT4, CDP, LIPRF #### [address] [address]898 Albumin mass conc 4.3 g/dL Normal 3.5-5.2 [facility] Comment on above: Performed By: #### C P, TSH, FT4, CDP, LIPRF #### [address] 37967 Albumin/Globulin mass ratio 1.5 {ratio} Normal 1.0-2.5 [facility] Comment on above: Performed By: #### C P, TSH, FT4, CDP, LIPRF #### [address] 35802 Alkaline Phos 64 U/L Normal 35-104 [facility] Comment on above: Performed By: #### C P, TSH, FT4, CDP, LIPRF #### [facility] [address] [place] [address] 28093 ALT enzyme act/vol 19 U/L Normal 5-33 [facility] Comment on above: Performed By: #### C P, TSH, FT4, CDP, LIPRF #### [address] 14592 Anion gap molar conc 10 mmol/L Normal 9-17 [facility] Comment on above: Performed By: #### C P, TSH, FT4, CDP, LIPRF #### [address] 19804 AST enzyme act/vol 15 U/L Normal <32 [facility] Comment on above: Performed By: #### C P, TSH, FT4, CDP, LIPRF #### [facility] [address] [place] [address] 76292 Bilirubin Ql (U) 0.26 mg/dL Low 0.3-1.2 [facility] Comment on above: Performed By: #### C P, TSH, FT4, CDP, LIPRF #### [facility] [address] [place] [address] 07305 Calcium mass conc 9.4 mg/dL Normal 8.6-10.4 [facility] Comment on above: Performed By: #### C P, TSH, FT4, CDP, LIPRF #### [address] 24696 Chloride molar conc 105 mmol/L Normal 98-107 [facility] Comment on above: Performed By: #### C P, TSH, FT4, CDP, LIPRF #### [address] 79287 CO2 molar conc 25 mmol/L Normal 20-31 [facility] Comment on above: Performed By: #### C P, TSH, FT4, CDP, LIPRF #### [address] [address]36 Creatinine mass conc 0.79 mg/dL Normal 0.50-0.90 [facility] Comment on above: Performed By: #### C P, TSH, FT4, CDP, LIPRF #### [facility] [address] [place] [address] 30793 GFR, Amer >60 Normal >60 [facility] Comment on above: Performed By: #### C P, TSH, FT4, CDP, LIPRF #### [address] [address] GFR,non Amer >60 Normal >60 [facility] Comment on above: Performed By: #### C P, TSH, FT4, CDP, LIPRF #### [facility] [address] [place] [address] 89893 Glucose mass conc 87 mg/dL Normal 70-99 [facility] Comment on above: Performed By: #### C P, TSH, FT4, CDP, LIPRF #### [address] [address] Potassium molar conc 4.4 mmol/L Normal 3.7-5.3 [facility] Comment on above: Performed By: #### C P, TSH, FT4, CDP, LIPRF #### [facility] [address] [place] [address] 15750 Protein mass conc 7.1 g/dL Normal 6.4-8.3 [facility] Comment on above: Performed By: #### C P, TSH, FT4, CDP, LIPRF #### [facility] [address] [place] [address] 00229 Sodium molar conc 140 mmol/L Normal 135-144 [facility] Comment on above: Performed By: #### C P, TSH, FT4, CDP, LIPRF #### [facility] [address] [place] [address] 83322 Urea nitrogen mass conc 13 mg/dL Normal 6-20 [facility] Comment on above: Performed By: #### C P, TSH, FT4, CDP, LIPRF #### [facility] [address] [place] [address] 86143 BUN/CRE Ratio NOT REPORTED Normal -20 [facility] Comment on above: Performed By: #### C P, TSH, FT4, CDP, LIPRF #### [facility] [address] [place] [address] 59596 Staging: NOT REPORTED Normal [facility] Comment on above: Performed By: #### C P, TSH, FT4, CDP, LIPRF #### [facility] [address] [place] [address] 41448 Lipid Prof, Fastingon 2017 Cholesterol in HDL mass conc 56 mg/dL Normal >40 [facility] Comment on above: Result Comment: HDL Guidelines: <40 Undesirable 40-59 Borderline >59 Desirable Performed By: #### C P, TSH, FT4, CDP, LIPRF #### [address] [address] Cholesterol in LDL mass conc 107 mg/dL Normal 0-130 [facility] Comment on above: Result Comment: LDL Guidelines: <100 Desirable 100-129 Near to/above Desirable 130-159 Borderline >159 Undesirable Direct (measured) LDL and calculated LDL are not interchangeable tests. Performed By: #### C P, TSH, FT4, CDP, LIPRF #### [address] [address] Cholesterol mass conc 179 mg/dL Normal <200 [facility] Comment on above: Result Comment: Cholesterol Guidelines: <200 Desirable 200-240 Borderline >240 Undesirable Performed By: #### C P, TSH, FT4, CDP, LIPRF #### [address] [address] Cholesterol.total/Ch olesterol in HDL mass ratio 3.2 {ratio} Normal <5 [facility] Comment on above: Performed By: #### C P, TSH, FT4, CDP, LIPRF #### [address] [address] Triglyceride,Fasting 82 mg/dL Normal <150 [facility] Comment on above: Result Comment: Triglyceride Guidelines: <150 Desirable 150-199 Borderline 200-499 High >499 Very high Based on AHA Guidelines for fasting triglyceride, November 2011. Performed By: #### C P, TSH, FT4, CDP, LIPRF #### [address] [address] Cholesterol in VLDL mass conc NOT REPORTED Normal 1-30 [facility] Comment on above: Performed By: #### C P, TSH, FT4, CDP, LIPRF #### [address] [address] Thyroid Stim. Horm.on 2017 Thyrotropin Qn 1.71 m[IU]/L Normal 0.30-5.00 [facility] Comment on above: Performed By: #### C P, TSH, FT4, CDP, LIPRF #### [facility] [address] [place] [address] 25270 Thyroxine, Freeon 12-06-2017 Thyroxine, Free 1.06 ng/dL Normal 0.93-1.70 [facility] Comment on above: Performed By: #### C P, TSH, FT4, CDP, LIPRF #### [facility] [address] [place] [address] 38687 Cult,Urineon 08-09-2017 Cult,Urine Specimen Description .CLEAN CATCH URINE Special Requests NOT REPORTED Culture ESCHERICHIA COLI >[id number] CFU/ML Report Status FINAL 08/08/2017 SUSCEPTIBILITY Organism ESCHERICHIA COLI Method FELIX Amikacin NOT REPORTED Ampicillin >=32 RESISTANT Ampicillin/Sulbactam NOT REPORTED Aztreonam <=1 SUSCEPTIBLE Cefazolin <=4 SUSCEPTIBLE Cefazolin sensitivity results can be used to predict the effectiveness of oral cephalosporins (eg. Cephalexin) in uncomplicated Urinary Tract Infections due to E. coli, K. pneumoniae, and P. mirabilis Cefepime NOT REPORTED Ceftriaxone <=1 SUSCEPTIBLE Ciprofloxacin <=0.25 SUSCEPTIBLE Ertapenem NOT REPORTED ESBL NEGATIVE Gentamicin 8 INTERMEDIATE Meropenem NOT REPORTED Nitrofurantoin <=16 SUSCEPTIBLE Tigecycline NOT REPORTED Tobramycin 8 INTERMEDIATE Trimethoprim/Sulfa >=320 RESISTANT Piperacillin/Tazobac richards <=4 SUSCEPTIBLE Normal [facility] Comment on above: Performed By: #### U RC #### [facility] [address] [place] [address] 26505 Urinalysis w/ Microon 2017 ----- Normal [facility] Comment on above: Performed By: #### U AMIC #### [facility] [address] [place] [address] 42738 Acetoacetic Acid,Ur Negative Normal NEG [facility] Comment on above: Performed By: #### U AMIC #### [facility] [address] [place] [address] 38226 Bacteria LM.HPF #/area (Urine sed) MANY Abnormal NONE [facility] Comment on above: Performed By: #### U AMIC #### [address] [address] Bilirubin, SemiQt,Ur Negative Normal NEG [facility] Comment on above: Performed By: #### U AMIC #### [address] [address] Casts LM.LPF #/area (Urine sed) 0 TO 2 HYALINE Normal 0-8 [facility] Comment on above: Result Comment: Refe rence range defined for non-centrifuged specimen. Performed By: #### U AMIC #### [address] [address] Color Nom (U) YELLOW Normal YEL [facility] Comment on above: Performed By: #### U AMIC #### [address] [address] Epithelial cells LM.HPF #/area (Urine sed) 2 TO 5 Normal 0-5 [facility] Comment on above: Performed By: #### U AMIC #### [address] [address] Glucose,Semi-qnt,Ur Negative Normal NEG [facility] Comment on above: Performed By: #### U AMIC #### [address] [address] Hemoglobin, Ur TRACE Abnormal NEG [facility] Comment on above: Performed By: #### U AMIC #### [address] [address] Leuckocyte Esterase LARGE Abnormal NEG [facility] Comment on above: Performed By: #### U AMIC #### [address] [address] Nitrite,Ur Negative Normal NEG [facility] Comment on above: Performed By: #### U AMIC #### [facility] [address] [place] [address] 17246 PH,Ur 5.5 Normal 5.0-8.0 [facility] Comment on above: Performed By: #### U AMIC #### [address] [address] Protein mass conc (U) TRACE Abnormal NEG [facility] Comment on above: Performed By: #### U AMIC #### [facility] [address] [place] [address] 89121 RBC #/vol (U) 5 TO 10 Normal 0-4 [facility] Comment on above: Result Comment: Refe rence range defined for non-centrifuged specimen. Performed By: #### U AMIC #### [address] [address] Spec. [place],Ur 1.017 Normal 1.005-1.030 [facility] Comment on above: Performed By: #### U AMIC #### [address] [address] Turbidity CLOUDY Abnormal CLEAR [facility] Comment on above: Performed By: #### U AMIC #### [facility] [address] [place] [address] 01350 Urobilinogen,Ur Normal Normal NORM [facility] Comment on above: Performed By: #### U AMIC #### [facility] [address] [place] [address] 79471 WBC #/vol (U) TOO NUMEROUS TO COUNT Normal 0-5 [facility] Comment on above: Performed By: #### U AMIC #### [facility] [address] [place] [address] 65311 Amorphous sediment LM Ql (Urine sed) NOT REPORTED Normal NONE [facility] Comment on above: Performed By: #### U AMIC #### [address] [address] Crystals LM Nom (Urine sed) NOT REPORTED Normal NONE [facility] Comment on above: Performed By: #### U AMIC #### [address] [address] Epithelial, Renal NOT REPORTED Normal 0 [facility] Comment on above: Performed By: #### U AMIC #### [address] [address]656 Mucus Strands NOT REPORTED Normal NONE [facility] Comment on above: Performed By: #### U AMIC #### [address] [address] Other Observations NOT REPORTED Normal NREQ [facility] Comment on above: Performed By: #### U AMIC #### [address] [address] Trichomonas NOT REPORTED Normal NONE [facility] Comment on above: Performed By: #### U AMIC #### [address] [address] Yeast LM Ql (Urine sed) NOT REPORTED Normal NONE [facility] Comment on above: Performed By: #### U AMIC #### [address] [address] Cult,Urineon 08-04-2017 Cult,Urine Specimen Description .URINE Special Requests NOT REPORTED Culture ESCHERICHIA COLI >[id number] CFU/ML Report Status FINAL 08/04/2017 SUSCEPTIBILITY Organism ESCHERICHIA COLI Method FELIX Amikacin NOT REPORTED Ampicillin >=32 RESISTANT Ampicillin/Sulbactam NOT REPORTED Aztreonam <=1 SUSCEPTIBLE Cefazolin <=4 SUSCEPTIBLE Cefazolin sensitivity results can be used to predict the effectiveness of oral cephalosporins (eg. Cephalexin) in uncomplicated Urinary Tract Infections due to E. coli, K. pneumoniae, and P. mirabilis Cefepime NOT REPORTED Ceftriaxone <=1 SUSCEPTIBLE Ciprofloxacin <=0.25 SUSCEPTIBLE Ertapenem NOT REPORTED ESBL NEGATIVE Gentamicin 8 INTERMEDIATE Meropenem NOT REPORTED Nitrofurantoin <=16 SUSCEPTIBLE Tigecycline NOT REPORTED Tobramycin 8 INTERMEDIATE Trimethoprim/Sulfa >=320 RESISTANT Piperacillin/Tazobac richards <=4 SUSCEPTIBLE Normal [facility] Comment on above: Performed By: #### U RC #### [facility] [address] [place] [address] [id number] UA w/Reflex Cultureon 2017 Acetoacetic Acid,Ur TRACE Abnormal NEG [facility] Comment on above: Performed By: #### U AX, UMICAO #### [facility] [address] [place] [address] 49464 Bilirubin.direct mass conc Negative Normal NEG [facility] Comment on above: Performed By: #### U AX, UMICAO #### [facility] [address] [place] [address] [phone] Color Nom (U) YELLOW Normal YEL [facility] Comment on above: Performed By: #### U AX, UMICAO #### [facility] [address] [place] [address] [phone] Glucose mass conc Negative Normal NEG [facility] Comment on above: Performed By: #### U AX, UMICAO #### [facility] [address] [place] [address] 72451 Hemoglobin mass conc (Bld) TRACE Abnormal NEG [facility] Comment on above: Performed By: #### U AX, UMICAO #### [facility] [address] [place] [address] [phone] Leuckocyte Esterase MODERATE Abnormal NEG [facility] Comment on above: Performed By: #### U AX, UMICAO #### [facility] [address] [place] [address] 44630 Nitrite,Ur Negative Normal NEG [facility] Comment on above: Performed By: #### U AX, UMICAO #### [facility] [place] [address] PH,Ur 5.0 Normal 5.0-8.0 [facility] Comment on above: Performed By: #### U AX, UMICAO #### [facility] [address] [place] [address] 42512 Protein mass conc TRACE Abnormal NEG [facility] Comment on above: Performed By: #### U AX, UMICAO #### [facility] [address] [place] [address] [phone] Spec. [place],Ur 1.024 Normal 1.005-1.030 [facility] Comment on above: Performed By: #### U AX, UMICAO #### [facility] [address] [place] [address] 72235 Turbidity CLOUDY Abnormal CLEAR [facility] Comment on above: Performed By: #### U AX, UMICAO #### [facility] [address] [place] [address] [phone] Urobilinogen,Ur Normal Normal NORM [facility] Comment on above: Performed By: #### U AX, UMICAO #### [facility] [address] [place] [address] [phone] Comment NOT REPORTED Normal [facility] Comment on above: Performed By: #### U AX, UMICAO #### [facility] [address] [place] [address] [phone] Urinalysis,Microon 8 ----- Normal [facility] Comment on above: Performed By: #### U AX, UMICAO #### [facility] [address] [place] [address] [phone] Bacteria LM.HPF #/area (Urine sed) MANY Abnormal NONE [facility] Comment on above: Performed By: #### U AX, UMICAO #### [facility] [address] [place] [address] [phone] Casts LM.LPF #/area (Urine sed) 10 TO 20 HYALINE Normal 0-8 [facility] Comment on above: Result Comment: Refe rence range defined for non-centrifuged specimen. Performed By: #### U AX, UMICAO #### [facility] [address] [place] [address] [phone] Epithelial cells LM.HPF #/area (Urine sed) 2 TO 5 Normal 0-5 [facility] Comment on above: Performed By: #### U AX, UMICAO #### [facility] [address] [place] [address] [phone] RBC #/vol (U) 10 TO 20 Normal 0-4 [facility] Comment on above: Result Comment: Refe rence range defined for non-centrifuged specimen. Performed By: #### U AX, UMICAO #### [facility] [address] [place] [address] 83218 WBC #/vol (U) TOO NUMEROUS TO COUNT Normal 0-5 [facility] Comment on above: Performed By: #### U AX, UMICAO #### [facility] [address] [place] [address] 23586 Amorphous sediment LM Ql (Urine sed) NOT REPORTED Normal NONE [facility] Comment on above: Performed By: #### U AX, UMICAO #### [facility] [address] [place] [address] [phone] Crystals LM Nom (Urine sed) NOT REPORTED Normal NONE [facility] Comment on above: Performed By: #### U AX, UMICAO #### [facility] [address] [place] [address] 96539 Epithelial, Renal NOT REPORTED Normal 0 [facility] Comment on above: Performed By: #### U AX, UMICAO #### [facility] [address] [place] [address] Mucus Strands NOT REPORTED Normal NONE [facility] Comment on above: Performed By: #### U AX, UMICAO #### [facility] [address] [place] [address] Other Observations NOT REPORTED Normal NREQ [facility] Comment on above: Performed By: #### U AX, UMICAO #### [facility] [address] [place] [address] Trichomonas NOT REPORTED Normal NONE [facility] Comment on above: Performed By: #### U AX, UMICAO #### [facility] [address] [place] [address] Yeast LM Ql (Urine sed) NOT REPORTED Normal NONE [facility] Comment on above: Performed By: #### U AX, UMICAO #### [facility] [address] [place] [address] Encounters Encounter Date Encounter Type Care Provider Facility Start: 04-24-2024 ambulatory Jaylen Mac acility:[facility] Start: 08-13-2021 End: 08-14-[address] DOCTOR REYNAGA Facility:[facility] Start: 10-14-2020 End: 10-15-2020 ambulatory ARLENE GARRETT Facility:[facility] Start: 09-03-2020 End: 09-04-2020 ambulatory [facility] Start: 09-03-2020 End: 09-03-2020 Subsequent hospital visit by physician [facility] Start: 11-29-2019 End: 11-30-2019 ambulatory [facility] Start: 11-29-2019 End: 11-29-2019 Subsequent hospital visit by physician [facility] Start: 11-15-2019 End: 11-16-2019 ambulatory [facility]ANNING [facility] Start: 11-15-2019 End: 11-15-2019 Subsequent hospital visit by physician [facility] Start: 11-14-2019 End: 11-15-2019 [facility] Start: 11-14-2019 End: 11-14-2019 Subsequent hospital visit by physician [facility] Start: 12-30-2018 End: 01-02-2019 Evaluation and management of inpatient IRISH WOODSON Facility:[facility] Start: 06-10-2018 End: 06-11-2018 Emergency department patient visit JOSUÉ HECTOR [facility] Start: 06-08-2018 End: 06-08-2018 Emergency department patient visit OLIVER MCCREA [facility] Start: 06-04-2018 End: 06-04-2018 Emergency department patient visit BALJEETAMALIA LIVINGSTON [facility] Start: 03-21-2018 End: 03-21-2018 Emergency department patient visit ERVIN [facility] Start: 12-06-2017 End: 12-07-2017 Patient encounter procedure KI PALAFOX [facility] Start: 08-07-2017 End: 08-07-2017 Emergency department patient visit [facility] Start: 08-03-2017 End: 08-03-2017 Emergency department patient visit PACOLET MILLS [facility] Procedures Date Procedure Procedure Detail Performing Clinician Start: 09-03-2020 Antibody hiv-1&hiv-2 single result Channing Yin RISK CONTROL ANALYST - TECHNOLOGY PROGRAM MANAGER Work Phone: Start: 09-03-2020 Comprehensive metabo lic panel Channing Yin RISK CONTROL ANALYST - TECHNOLOGY PROGRAM MANAGER Work Phone: Start: 11-15-2019 Antibody hiv-1&hiv-2 single result CHANNING YIN Start: 11-15-2019 Blood count complete automated CHANNING YIN Start: 11-15-2019 Acute hepatitis panel E abyyahaira Yin Work Phone: Start: 11-15-2019 Antibody hiv-1&hiv-2 single result Channing Yin Work Phone: Start: 11-15-2019 Blood count complete automated Channing Yin Work Phone: Start: 11-15-2019 Comprehensive metabo lic panel Channing Yin Work Phone: Start: 11-15-2019 Gonadotropin chorion ic qualitative Channing Yin Work Phone: Start: 11-15-2019 Iadna hepatitis c qu ant & reverse bench worker binding CHANNING YIN Start: 06-10-2018 Ct abdomen & pelvis w/o contrast material [facility] Start: 06-10-2018 Basic metabolic pane l calcium total [facility] Start: 06-10-2018 Blood count complete auto&auto difrntl wbc [facility] Start: 06-10-2018 Gonadotropin chorion ic qualitative [facility] Start: 06-10-2018 INSERT PERIPHERAL IV MA [facility] Start: 06-08-2018 Culture bacterial quanttative colony count urine [facility] Start: 06-08-2018 Drug screen class list a [facility] Start: 06-08-2018 Urinalysis microscopic only [facility] Start: 06-08-2018 Urnls dip stick/tabl et rgnt auto w/o microscopy [facility] Start: 06-04-2018 Urine test visual color cmprsn meths [facility] Start: 06-04-2018 Urnls dip stick/tabl et reagent auto microscopy [facility] Start: 12-06-2017 Assay of free thyroxine [facility] Start: 12-06-2017 Assay of thyroid stimulating hormone tsh [facility] Start: 12-06-2017 Blood count complete auto&auto difrntl wbc [facility] Start: 12-06-2017 Comprehensive metabo lic panel [facility] Start: 12-06-2017 Lipid panel [facility] K Start: 08-07-2017 Culture bacterial quanttative colony count urine [facility] Start: 08-07-2017 Urnls dip stick/tabl et reagent auto microscopy [facility] Start: 08-03-2017 Culture bacterial quanttative colony count urine [facility] Start: 08-03-2017 Microscopic urinalysis [facility] Start: 08-03-2017 URINE RT REFLEX TO CULTURE [facility] Plan of Treatment Date Care Activity Detail Author Start: 10-07-2020 Influenza vaccination Flu vaccine (# 1) [employer] Work Phone: Start: 10-08-2019 Influenza vaccination Flu vaccine (# 1) [place], [place] Start: 2005 Screening for malign ant neoplasm of cervix Cervical cancer screen [place], [place] Start: 06-22-2003 DTaP/Tdap/Td vaccine (1 - Tdap) DTaP/Tdap/Td vaccine (1 - Tdap) [place] Start: 06-22-1999 HIV screening HIV screen [facility] [place], [place] Start: 1996 COVID-19 Vaccine (1) COVID-19 Vaccin e (1) [facility] [employer] Phone: Start: 1990 Pneumococcal 0-64 ye ars Vaccine (1 of 1 - PPSV23) Pneumococcal 0-64 years Vaccine (1 of 1 - PPSV23) [place], [place] Start: 1990 Pneumococcal 0-64 ye ars Vaccine (1 of 2 - PPSV23) Pneumococcal 0-64 years Vaccine (1 of 2 - PPSV23) [facility] [employer] Phone: Start: 1985 Varicella vaccine (1 of 2 - 2-dose childhood series) Varicella vaccine (1 of 2 - 2-dose childhood series) [place] End: 11-15-2019 Hepatitis C RNA, quantitative, PCR Hepatitis C RNA, quantitative, PCR Lab Routine Once for 1 Occurrences starting 11/15/2019 until 11/15/2019 [place], [place] Comment on above: Once for 1 Occurrenc es starting 11/15/2019 until 11/15/2019 Hepatitis C RNA, quantitative, PCR Hepatitis C RNA, quantitative, PCR Lab Routine 11/15/2019 4:51 AM EDT [place], [place] Payers Date Payer Category Payer Self-pay 1985 Unknown [id number] 2.16.8 [id number] 1984 Unknown [id number] 2.16.8 [id number] 1984 Unknown [id number] 2.16.8 [id number] 1984 Unknown [id number] 2.16.8 [id number] 1984 Unknown [id number] 2.16.8 [id number] 1984 Unknown [id number] 2.16.8 [id number] 1984 Unknown [id number] 2.16.8 [id number] 1984 Unknown [id number] 2.16.8 [id number] 1984 Unknown [id number] 2.16.8 [id number] 1984 Unknown [id number] 2.16.8 [id number] 1984 Unknown [id number] 2.16.8 [id number] 1984 Unknown [id number] 2.16.8 [id number] 1984 Unknown [id number] 2.16.84 [id number] 1984 Unknown [id number] 2.16.84 [id number] 1959 Unknown [id number] Unknown [id number] 2.16.8 [id number] Social History Date Type Detail Facility Start: [facility]10-[facility] [place] History of tobacco use Cigarette Smoker [place] Start: 06-10-2018 Cigarettes smoked current (pack per day) - Reported [place] Start: 06-10-2018 Tobacco use and exposure Never used [place] Start: 06-10-2018 Alcohol intake Current non-dr classifications officer cc/cm of alcohol (finding) [place], [place] Start: 1985 Sex Assigned At Not on file [place], [place] Clinical Note 10-15-2020 Note Date & Type Note Facility 10-15-2020 Note PROCEDURE: XR CHEST 2 V REASON FOR STUDY/CLINICAL HISTORY: Pain. COMPARISON STUDY: None available at time of dictation. TECHNIQUE: Single view(s) of the chest presented for interpretation. FINDINGS: No acute cardiopulmonary process. Scattered subtle sequela of prior granulomatous disease can be appreciated. Very minimal atelectasis at the right greater than left lung base. Normal cardiomediastinal silhouette. No focal consolidation, edema, or effusion. No pneumothorax. No acute appearing focal significant bony abnormality. IMPRESSION: No acute localizing pulmonary pathology. Slight atelectasis at the lung base on the right greater than left. Electronically authenticated by: CLARIBEL DE LA GARZA Date: 2020-10-15 00:07 [facility] Summary Purpose Family History No Family History Records FoundNo Family History Records FoundNo Family History Records FoundNo Family History Records FoundNo Family History Records FoundNo Family History Records Found Advance Directives No Advanced Directives Records FoundDocuments on File Type Date Recorded Patient Rn Trauma Expl anation ACP-Advance Directive ACP-Power of Inverted Block Operator Hospital Course Note MR#: [id number] [facility] Pt. Name: Morris Duran Admitted: 12/30/2018 Discharged: 01/02/2019 Date of : 1985 Physician: Brianna Lopez MD DISCHARGE SUMMARY PRIMARY CARE PHYSICIAN: None. DISCHARGE DIAGNOSES: 1. Bipolar disorder with concepcion and hallucinations, resolved. 2. Lumbar spine pain in the setting of bacteremia with Staphylococcus epidermidis, improving. 3. Left hand injection wound, unstageable secondary to IV drug use. 4. Methamphetamine use disorder. 5. Normocytic anemia. CONSULTS: 1. Psychiatry. 2. Wound Care. HOSPITAL COURSE: This is a 33-year-old female with past medical history significant for hepatitis C, IV drug use, chronic low back pain, admitted to [facility], who was transferred from [facility] secondary to low back pain for last 2 weeks. She had abdominal and pelvis CT done, it was unremarkable except left ovarian cyst. Psychiatry was consulted secondary to hallucinations. The patient was using IV methamphetamine due t (more content not included)... Additional Source Comments INFORMATION SOURCE (unrecogn ized section and content) DATE CREATED AUTHOR 06/27/2018 [facility] DATE CREATED AUTHOR AUTHOR'S ORGANIZ ATION 02/16/2019 [facility] DATE CREATED AUTHOR AUTHOR'S ORGANIZ ATION 04/14/[address] [facility] DATE CREATED AUTHOR AUTHOR'S ORGANIZ ATION 09/04/2020 [facility] DATE CREATED AUTHOR AUTHOR'S ORGANIZ ATION 08/24/2021 [facility] DATE CREATED AUTHOR AUTHOR'S ORGANIZ ATION 04/27/2024 [facility] FOR RECORDS PERTAINING TO PATIENTS WHO ARE OR HAVE BEEN ENROLLED IN A CHEMICAL DEPENDENCY/SUBSTANCEABUSE PROGRAM, SOME INFORMATION MAY BE OMITTED. This clinical summary was aggregated from multiple sources. Caution should be exercised in using it in the provision of clinical care. This summary normalizes information from multiple sources, and as a consequence, information in this document may materially change the coding, format and clinical context of patient data. In addition, data may be omitted in some cases. CLINICAL DECISIONS SHOULD BE BASED ON THE PRIMARY CLINICAL RECORDS. [facility] [employer] provides no warranty or guarantee of the accuracy or completeness of information in this document.
[2024-05-22 23:15] VITALS: BP 116/72; PULSE 68; TEMP 36.7; O2SAT 100; BMI 43.3
--- NOTE | 2024-05-22 23:39 | ED_ITS ---
HPI - Eye Problem General Chief complaint: Eye Problems Stated complaint: POSS PINK EYES BILATERALLY Time Seen by Provider: 05/22/24 23:17 Source: patient Mode of arrival: walk-in Limitations: no limitations History of Present Illness HPI Narrative: This 38-year-old female presents for evaluation of upper respiratory symptoms including cough, runny nose, sore throat head and chest congestion and development of bilateral itching, redness and drainage from both eyes. The eye symptoms started today. The other symptoms have been present for the past several days. She has not had a fever. She denies any nausea vomiting or diarrhea. She has no chest pain or shortness of breath. She does not wear contact lenses. Related Data Home Medications ?Medication ?Instructions ?Recorded ?Confirmed aripiprazole 5 mg tablet 5 mg PO DAILY 08/10/23 05/22/24 mirtazapine 45 mg tablet 45 mg PO QPM 08/10/23 05/22/24 lamotrigine 25 mg tablet 50 mg PO QDAY 05/22/24 05/22/24 venlafaxine 37.5 mg 37.5 mg PO QDAY 05/22/24 05/22/24 capsule,extended release 24 hr Allergies Allergy/AdvReac Type Severity Reaction Status Date / Time cefaclor (From Ceclor) Allergy Severe Unknown Verified 05/22/24 23:12 duloxetine (From Cymbalta) Allergy Severe Unknown Verified 05/22/24 23:12 Review of Systems ROS Status of ROS 10 or more systems reviewed and unremark able except as noted in history and below PFSH PFSH Social History Little interest or pleasure in doing things: not at all Feeling down, depressed, or hopeless: not at all Exam Narrative Exam Narrative: Vital signs and Nursing Notes reviewed: Patient is afebrile with a normal pulse, normal blood pressure, she is not hypoxic with pulse ox of 100% on room air General: Awake, alert, oriented, nontoxic overweight female with audible nasal congestion, no respiratory distress HEENT: Normocephalic atraumatic, mucous membranes are moist and pink, bilateral conjunctival injection with yellow discharge in the medial canthus, there is no redness or swelling around the orbits, extraocular muscle movement is intact without pain, pupils are equal and reactive Neck: Supple, no meningeal signs, no anterior or posterior cervical lymphadenopathy Chest: Lungs are clear to auscultation with good air entry, there is no wheezing rhonchi or rales appreciated no accessory muscle use, patient is speaking in complete sentences-no chest wall tenderness to palpation CVS: Regular rate and rhythm S1-S2, no murmurs rubs or gallops, pulses are brisk and equal bilaterally ABD: Soft, nondistended, nontender, no rebound guarding or rigidity, bowel sounds are normal, no pulsatile masses appreciated Extremities: Moving all extremities, no lower extremity tenderness or swelling noted Skin: Normal in appearance without rash,pallor, petechiae or purpura Neuro: No focal deficits Constitutional Vital Signs, click to edit/add: Last Vital Signs Temp 98.1 F 05/22/24 23:15 Pulse 68 05/22/24 23:15 Resp 16 05/22/24 23:15 BP 116/72 05/22/24 23:15 Pulse Ox 100 05/22/24 23:15 O2 Del Method Room Air 05/22/24 23:15 Course Vital Signs Vital signs: Vital Signs Temperature 98.1 F 05/22/24 23:15 Pulse Rate 68 05/22/24 23:15 Respiratory Rate 16 05/22/24 23:15 Blood Pressure 116/72 05/22/24 23:15 Pulse Oximetry 100 05/22/24 23:15 Oxygen Delivery Method Room Air 05/22/24 23:15 Temperature 98.1 F 05/22/24 23:15 Pulse Rate 68 05/22/24 23:15 Respiratory Rate 16 05/22/24 23:15 Blood Pressure 116/72 05/22/24 23:15 Pulse Oximetry 100 05/22/24 23:15 Oxygen Delivery Method Room Air 05/22/24 23:15 MDM - Eye Problem MDM Narrative Medical decision making narrative: This 38-year-old female presents for evaluation of upper respiratory tract s ymptoms that have been present for the past 3 days and development of redness and drainage to both eyes earlier today. The patient states she had to work like that. She tried to go to urgent care but they were close when she get out of work. She has not had a fever. She has audible nasal congestion. Posterior pharynx is normal. Tympanic membranes are normal. Lungs are clear. She does have redness and drainage from both eyes without any sign of periorbital cellulitis. She does not wear contacts I do not have any concerns for corneal ulcers. She was medicated with a dose of ibuprofen for her discomfort and given erythromycin ointment for her eyes. I explained to her that the symptoms are likely viral in nature but we will treat the eye discomfort with antibiotic ointment. She will be given a prescription for Cipro ophthalmic solution if the erythromycin ophthalmic ointment does not work in the next 24 to 48 hours. She is in agreement with this plan. Discharge Plan Discharge Chief Complaint: Eye Problems Clinical Impression: Upper respiratory infection, viral, Conjunctivitis Patient Disposition: Home, Self-Care Time of Disposition Decision: 23:37 Condition: Good Prescriptions / Home Meds: No Action aripiprazole 5 mg tablet 5 mg PO DAILY mirtazapine 45 mg tablet 45 mg PO QPM lamotrigine 25 mg tablet 50 mg PO QDAY venlafaxine 37.5 mg capsule,extended release 24hr 37.5 mg PO QDAY Print Language: Sierra Leonean Instructions: Upper Respiratory Infection (ED), Conjunctivitis (ED) Referrals: Physician,Non-Staff, MD [Primary Care Provider] - 1 week
[2024-05-22] MEDS: IBUPROFEN 600 MG TABLET PO (23:47)
[2024-05-22] MEDS: ERYTHROMYCIN OP OINT 0.5% 1 GM TUBE OP (23:47)
== END 2024-05-22 23:54 | disposition home or self-care (01) ==
PROVIDERS: Emergency Provider Emergency Medicine
DX: J06.9 Acute upper respiratory infection, unspecified (principal); H10.9 Unspecified conjunctivitis
CPT/HCPCS: 99283

== ENCOUNTER 2024-05-25 23:58 | Emergency (ER) | payer BC, SELFPAY ==
[2024-05-26 00:01] VITALS: BP 135/85; PULSE 72; TEMP 37.1; O2SAT 100; BMI 43.3
--- NOTE | 2024-05-26 00:25 | ED.URI1 ---
HPI - URI/Sore Throat General Chief Complaint: Upper Respiratory Infection Stated Complaint: EYE PAIN, COUGH Time Seen by Provider: 05/26/24 00:18 Source: patient Limitations: no limitations History of Present Illness HPI Narrative: daily smoker presents with recurrent cough. seen here a couple of days ago for pink eye and doesn't feel her eyes are better. states right eye was stuck closed. No visual complaint. Cough is productive Related Data Home Medications ?Medication ?Instructions ?Recorded ?Confirmed aripiprazole 5 mg tablet 5 mg PO DAILY 08/10/23 05/22/24 mirtazapine 45 mg tablet 45 mg PO QPM 08/10/23 05/22/24 lamotrigine 25 mg tablet 50 mg PO QDAY 05/22/24 05/22/24 venlafaxine 37.5 mg 37.5 mg PO QDAY 05/22/24 05/22/24 capsule,extended release 24 hr Allergies Allergy/AdvReac Type Severity Reaction Status Date / Time cefaclor (From Ceclor) Allergy Severe Unknown Verified 05/26/24 00:05 duloxetine (From Cymbalta) Allergy Severe Unknown Verified 05/26/24 00:05 Review of Systems ROS Status of ROS 10 or more systems reviewed and unremarkable except as noted in history and [facility] Social History Little interest or pleasure in doing things: not at all Feeling down, depressed, or hopeless: not at all Exam Constitutional Vital Signs, click to edit/add: Last Vital Signs Temp 98.7 F 05/26/24 00:01 Pulse 72 05/26/24 00:01 Resp 18 05/26/24 00:01 BP 135/85 05/26/24 00:01 Pulse Ox 100 05/26/24 00:01 O2 Del Method Room Air 05/26/24 00:01 Common normals: no apparent distress, oriented x3, no limitations, healthy appearing, alert and well nourished [facility] Common normals: normocephalic and head/scalp atraumatic Other: conjunctival mildly injected. mild swelling right upper eyelid Eye Common normals: PERRL and EOMs intact bilaterally Respiratory Common normals: normal respiratory effort, no retractions, no use of accessory muscles and clear to auscultation bilaterally Cardio Common normals: regular rate, regular rhythm, S1 normal heart sound and S2 normal heart sound GI Common normals: soft to palpation and non-tender Extremity Common normals: normal to inspection and full ROM Neuro Common normals: oriented x3, CN's II-XII intact bilaterally, moves all extremities and no focal motor deficits Psych Appearance: grossly normal Course Vital Signs Vital signs: Vital Signs Temperature 98.7 F 05/26/24 00:01 Pulse Rate 72 05/26/24 00:01 Respiratory Rate 18 05/26/24 00:01 Blood Pressure 135/85 05/26/24 00:01 Pulse Oximetry 100 05/26/24 00:01 Oxygen Delivery Method Room Air 05/26/24 00:01 Temperature 98.7 F 05/26/24 00:01 Pulse Rate 72 05/26/24 00:01 Respiratory Rate 18 05/26/24 00:01 Blood Pressure 135/85 05/26/24 00:01 Pulse Oximetry 100 05/26/24 00:01 Oxygen Delivery Method Room Air 05/26/24 00:01 MDM - URI/Sore Throat MDM Narrative Medical decision making narrative: presents with complaint of continued conjunctival infection despite using her drops for a couple of days. eyes however are only mildly injected with very mild swelling right upper eyelid. Also has productive cough and is daily cigarette smoker. cxray is clear. Patient informed of the plan to treat for bronchitis and prescribed erythromycin ointment for her eyes. She felt the ointment worked better for her eyes Lab Data Labs: Lab Results 05/26/24 Range/Units 00:45 WBC 13.1 H (4.0-11.0) 10^3/uL RBC 4.32 (4.20-5.40) 10^6/uL Hgb 13.0 (12.0-16.0) g/dL Hct 39.5 (36.0-48.0) % MCV 91.4 (81.0-99.0) fL MCH 30.1 (26.7-34.0) pg MCHC 32.9 (29.9-35.2) g/dL RDW 12.7 (11.0-15.0) % Plt Count 318 (150-450) 10^3/uL MPV 10.1 (9.5-13.5) fL Neut % (Auto) 55.3 (43.0-75.0) % Lymph % (Auto) 31.8 (20.5-60.0) % [place] % (Auto) 8.1 (1.7-12.0) % Eos % (Auto) 4.1 (0.9-7.0) % Baso % (Auto) 0.4 (0.2-2.0) % Neut # (Auto) 7.2 H (1.4-6.5) 10^3/uL Lymph # (Auto) 4.2 H (1.2-3.8) 10^3/uL [place] # (Auto) 1.1 H (0.3-0.8) 10^3/uL Eos # (Auto) 0.5 (0.0-0.7) 10^3/uL Baso # (Auto) 0.1 (0.0-0.1) 10^3/uL Abs Immat Gran (auto) 0.04 H (0.00-0.03) 10^3/uL Imm/Tot Granulo (auto) 0.3 (0.0-0.5) % Sodium 139 (136-145) mmol/L Potassium 3.3 L (3.5-5.1) mmol/L Chloride 104 (98-107) mmol/L Carbon Dioxide 29.8 (21.0-32.0) mmol/L Anion Gap 8.5 BUN 8.0 (7.0-18.0) mg/dL Creatinine 0.83 (0.55-1.02) mg/dL Est GFR ( Amer) >60 (>=60 mL/min/1.73m^2) Est GFR (Non-Af Amer) >60 (>=60 mL/min/1.73m^2) BUN/Creatinine Ratio 9.6 Glucose 85 (74-106) mg/dL Calcium 9.1 (8.5-10.1) mg/dL Discharge Plan Discharge Chief Complaint: Upper Respiratory Infection Clinical Impression: Conjunctivitis, Upper respiratory infection Patient Disposition: Home, Self-Care Prescriptions / Home Meds: No Action aripiprazole 5 mg tablet 5 mg PO DAILY mirtazapine 45 mg tablet 45 mg PO QPM lamotrigine 25 mg tablet 50 mg PO QDAY venlafaxine 37.5 mg capsule,extended release 24hr 37.5 mg PO QDAY Print Language: Singaporean Instructions: Acute Bronchitis (ED), Conjunctivitis (ED) Referrals: Physician,Non-Staff, MD [Primary Care Provider] - 1 week
[2024-05-26] MEDS: METHYLPREDNISOLONE SOD SUCC PF 125 MG/2 ML VIAL IVP (00:49)
[2024-05-26 00:59] LABS: Basophils Absolute Auto 0.1 10^3/uL (0.0-0.1); Basophils Percent Auto 0.4 % (0.2-2.0); Eosinophils Absolute Auto 0.5 10^3/uL (0.0-0.7); Eosinophils Percent Auto 4.1 % (0.9-7.0); Hematocrit 39.5 % (36.0-48.0); Immature Granulocytes Abs Auto 0.04 10^3/uL (0.00-0.03); Immature Granulocytes Pct Auto 0.3 % (0.0-0.5); Lymphocytes Absolute Auto 4.2 10^3/uL (1.2-3.8); Lymphocytes Percent Auto 31.8 % (20.5-60.0); Mean Corpuscular HGB Conc 32.9 g/dL (29.9-35.2); Mean Corpuscular Hemoglobin 30.1 pg (26.7-34.0); Mean Corpuscular Volume 91.4 fL (81.0-99.0); Mean Platelet Volume 10.1 fL (9.5-13.5); Monocytes Absolute Auto 1.1 10^3/uL (0.3-0.8); Monocytes Percent Auto 8.1 % (1.7-12.0); Neutrophils Absolute Auto 7.2 10^3/uL (1.4-6.5); Neutrophils Percent Auto 55.3 % (43.0-75.0); Platelet Count 318 10^3/uL (150-450); Red Blood Count 4.32 10^6/uL (4.20-5.40); Red Cell Distribution Width 12.7 % (11.0-15.0); White Blood Count 13.1 10^3/uL (4.0-11.0)
[2024-05-26 01:07] LABS: Anion Gap 8.5; BUN Creatinine Ratio 9.6; Calcium 9.1 mg/dL (8.5-10.1); Carbon Dioxide 29.8 mmol/L (21.0-32.0); Chloride 104 mmol/L (98-107); Estimated GFR (African America >60 (>=60 mL/min/1.73m^2); Estimated GFR (Non-African Ame >60 (>=60 mL/min/1.73m^2); Glucose 85 mg/dL (74-106); Potassium 3.3 mmol/L (3.5-5.1); Sodium 139 mmol/L (136-145)
[2024-05-26] MEDS: AZITHROMYCIN 250 MG TABLET 500 MG PO (02:51)
== END 2024-05-26 02:55 | disposition home or self-care (01) ==
PROVIDERS: Emergency Provider Internal Medicine
DX: J06.9 Acute upper respiratory infection, unspecified (principal); H10.9 Unspecified conjunctivitis; F17.210 Nicotine dependence, cigarettes, uncomplicated
CPT/HCPCS: 36415; 71046; 80048; 85025; 96374; 99285; J2919

== ENCOUNTER 2024-06-24 19:48 | Emergency (ER) | payer BC, SELFPAY ==
[2024-06-24 19:51] VITALS: BP 130/88; PULSE 95; TEMP 36.7; O2SAT 98; BMI 44.9
--- OUTSIDE RECORDS SUMMARY | 2024-06-24 19:53 | XMS_ITS | CCD ---
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 Name Role Phone PAVLOCK, MAX L Primary [...] Primary Care Unavailable ARLENE GARRETT Admitting Unavailable CLARIBLE DE LA GARZA Consulting Unavailable MISC, DR REYES Attending Unavailable MISC, DR REYES Consulting Unavailable BILL LOPEZ Primary Care Unavailable MISSana, DR REYES Admitting Unavailable Jaylen Jean Attending Unavailab Jaylen Christensen Admitting Unavailab le NO FAMILY, PHYSICIAN Primary Care Unavailable Allergies Allergy Classification Reported Allergen(s) Allergy Type Date of Onset Reaction(s) Facility Cephalosporins (antibiotic) (1 source) Cefaclor Drug Allergy 08-03-2017 [facility] DULoxetine (1 source) DULoxetine Drug Allergy 08-03-2017 [facility] (2 sources) Acetaminophen / HYDROcodone Drug Allergy 11-10-2012 [facility] (2 sources) Cefaclor Drug Allergy 11-10-2012 [facility] (2 sources) DULoxetine Drug Allergy 11-10-2012 [facility] (3 sources) Cefaclor Drug Allergy 08-03-2017 [place], [place] (3 sources) DULoxetine Drug Allergy 08-03-2017 [place], [place] Medications Current Medications Medication Drug Class(es) [...] 10-16-2020 Chronic Other aftercare (4 sources) Other group home (current) drug therapy; Translations: [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 Elmer Hopkins Basophils/100 WBC (Bld) 0.5 % Normal 0.2-2.0 [facility] Comment on above: Performed By: #### C BC #### [facility] [address] [place] [address] Dr. Elmer Hopkins EO # 0.7 103/ul Normal 0.0-0.7 [facility] Comment on above: Performed By: #### C BC #### [facility] [address] [place] [address] Dr. Elmer Hopkins Eosinophils/100 WBC (Bld) 9.4 % Critically high 0.9-7.0 [facility] Comment on above: Performed By: #### C BC #### [facility] [address] [place] [address] Dr. Elmer Hopkins Erythrocyte distribution width (RBC) [Ratio] 12.3 % Normal 11.0-15.0 [facility] Comment on above: Performed By: #### C BC #### [facility] [address] [address] [address] Elmer Hopkins Hematocrit (Bld) [Volume fraction] 45.0 % Normal 36.0-48.0 [facility] Comment on above: Performed By: #### C BC #### [facility] [address] [place] [address] Dr. Elmer Hopkins Hemoglobin (Bld) [Mass/Vol] 14.8 g/dL Normal 12.0-16.0 [facility] Comment on above: Performed By: #### C BC #### [facility] [address] [place] [address] Dr. Elmer Hopkins IG # 0.03 10e3/ul Normal 0.00-0.03 [facility] Comment on above: Performed By: #### C BC #### [facility] [address] [place] [address] Dr. Elmer Hopkins IG % 0.4 % Normal 0.0-0.5 [facility] Comment on above: Performed By: #### C BC #### [facility] [address] [place] [address] Dr. Elmer Hopkins LYMPH # 3.0 103/ul Normal 1.2-3.8 [facility] Comment on above: Performed By: #### C BC #### [facility] [address] [place] [address] Dr. Elmer Hopkins Lymphocytes/100 WBC (Bld) 37.3 % Normal 20.5-60.0 [facility] Comment on above: Performed By: #### C BC #### [facility] [address] [place] [address] Dr. Elmer Hopkins MANUAL DIFF REQ NO Normal [facility] Comment on above: Performed By: #### C BC #### [facility] [address] [place] [address] Dr. Elmer Hopkins MCH (RBC) [Entitic mass] 31.5 pg Normal 26.7-34.0 [facility] Comment on above: Performed By: #### C BC #### [facility] [address] [place] [address] Dr. Elmer Hopkins MCHC (RBC) [Mass/Vol] 32.9 g/dL Normal 29.9-35.2 [facility] Comment on above: Performed By: #### C BC #### [facility] [address] [place] [address] Dr. Elmer Hopkins MCV (RBC) [Entitic vol] 95.7 fL Normal 81.0-99.0 [facility] Comment on above: Performed By: #### C BC #### [facility] [address] [place] [address] Dr. Elmer Hopkins MONO # 0.7 103/ul Normal 0.3-0.8 [facility] Comment on above: Performed By: #### C BC #### [facility] [address] [place] [address] Dr. Elmer Hopkins Monocytes/100 WBC (Bld) 9.0 % Normal 1.7-12.0 [facility] Comment on above: Performed By: #### C BC #### [facility] [address] [place] [address] Dr. Elmer Hopkins NEUT # 3.4 103/ul Normal 1.4-6.5 [facility] Comment on above: Performed By: #### C BC #### [facility] [address] [place] [address] Dr. Elmer Hopkins Neutrophils/100 WBC (Bld) 43.4 % Normal 43.0-75.0 [facility] Comment on above: Performed By: #### C BC #### [facility] [address] [place] [address] Dr. Elmer Hopkins Platelet mean volume (Bld) [Entitic vol] 9.4 fL Critically low 9.5-13.5 [facility] Comment on above: Performed By: #### C BC #### [facility] [address] [place] [address] Dr. Elmer Hopkins PLT 329 103/ul Normal 150-450 [facility] Comment on above: Performed By: #### C BC #### [facility] [address] [place] [address] Dr. Elmer Hopkins RBC 4.70 106/ul Normal 4.20-5.40 [facility] Comment on above: Performed By: #### C BC #### [facility] [address] [place] [address] Dr. Elmer Hopkins WBC 7.9 103/ul Normal 4.0-11.0 [facility] Comment on above: Performed By: #### C BC #### [facility] [address] [address] [address] Elmer Hopkins GLYCOHEMOGLOBIN A1Con 2021 ADA RECOMMENDATION SEE BELOW Normal [facility] Comment on above: Result Comment: ADA RECOMMENDED LIMIT 4.0 - 6.0 ADA THERAPEUTIC TARGET < 7.0 ACTION SUGGESTED > 7.0 Performed By: #### A 1C #### [facility] [address] [address] [address] Elmer Hopkins Glucose [Mass/Vol] 105 mg/dL Normal [facility] Comment on above: Performed By: #### A 1C #### [facility] [address] [place] [address] Dr. Elmer Hopkins HbA1c (Bld) [Mass fraction] 5.3 % Normal 4.5-6.2 [facility] Comment on above: Performed By: #### A 1C #### [facility] [address] [place] [address] Dr. Elmer Hopkins LIPID PROFILEon 08-13-2021 CHOL-HDL RATIO NORM SEE BELOW Normal [facility] Comment on above: Result Comment: 3.3 - 4.4 LOW RISK 4.4 - 7.1 AVERAGE RISK 7.1 - 11.0 MODERATE RISK >11.0 HIGH RISK Performed By: #### C MP, TSH, LIPID #### [facility] [address] [place] [address] Dr. Elmer Hopkins Cholesterol [Mass/Vol] 185 mg/dL Normal <=200 [facility] Comment on above: Performed By: #### C MP, TSH, LIPID #### [facility] [address] [place] [address] Dr. Elmer Hopkins Cholesterol in HDL [Mass/Vol] 45 mg/dL Normal 40-60 [facility] Comment on above: Performed By: #### C MP, TSH, LIPID #### [facility] [address] [place] [address] Dr. Elmer Hopkins Cholesterol in LDL [Mass/Vol] 120.4 mg/dL Normal [facility] Comment on above: Performed By: #### C MP, TSH, LIPID #### [facility] [address] [address] [address] Elmer Hopkins Cholesterol.total/Ch olesterol in HDL [Mass ratio] 4.1 {ratio} Normal [facility] Comment on above: Performed By: #### C MP, TSH, LIPID #### [facility] [address] [address] [address] Elmer Hopkins HDL NORMAL > or = 60 mg/dl - LOW CARDIOVASCULAR RISK <40 mg/dl - HIGH CARDIOVASCULAR RISK Normal [facility] Comment on above: Performed By: #### C MP, TSH, LIPID #### [facility] [address] [place] [address] Dr. Elmer Hopkins LDL CALC NORMAL SEE BELOW Normal [facility] Comment on above: Result Comment: <100 mg/dl OPTIMAL 100 - 129 mg/dl NEAR OR ABOVE OPTIMAL 130 - 159 mg/dl BORDERLINE HIGH 160 - 189 mg/dl HIGH >190 mg/dl VERY HIGH Performed By: #### C MP, TSH, LIPID #### [facility] [address] [address] [address] Elmer Hopkins Triglyceride [Mass/Vol] 98 mg/dL Normal <=150 [facility] Comment on above: Performed By: #### C MP, TSH, LIPID #### [facility] [address] [place] [address] Dr. Elmer Hopkins VLDL CALC 19.6 mg/dL Normal [facility] Comment on above: Performed By: #### C MP, TSH, LIPID #### [facility] [address] [place] [address] Dr. Elmer Hopkins PROF 14(COMP METB)on 022 Albumin [Mass/Vol] 3.3 g/dL Critically low 3.4-5.0 [facility] Comment on above: Performed By: #### C MP, TSH, LIPID #### [facility] [address] [place] [address] Dr. Elmer Hopkins Albumin/Globulin [Mass ratio] 0.9 {ratio} Normal [facility] Comment on above: Performed By: #### C MP, TSH, LIPID #### [facility] [address] [address] [address] Elmer Hopkins ALP [Catalytic activity/Vol] 99 U/L Normal 46-116 [facility] Comment on above: Performed By: #### C MP, TSH, LIPID #### [facility] [address] [address] [address] Elmer Hopkins ALT [Catalytic activity/Vol] 102 U/L Critically high 14-59 [facility] Comment on above: Performed By: #### C MP, TSH, LIPID #### [facility] [address] [address] [address] Elmer Hopkins Anion gap [Moles/Vol] 8.3 mmol/L Normal [facility] Comment on above: Performed By: #### C MP, TSH, LIPID #### [facility] [address] [place] [address] Dr. Elmer Hopkins AST [Catalytic activity/Vol] 49 U/L Critically high 15-37 [facility] Comment on above: Performed By: #### C MP, TSH, LIPID #### [facility] [address] [address] [address] Elmer Hopkins Bilirubin [Mass/Vol] 0.3 mg/dL Normal 0.2-1.0 [facility] Comment on above: Performed By: #### C MP, TSH, LIPID #### [facility] [address] [address] [address] Elmer Hopkins Calcium [Mass/Vol] 8.7 mg/dL Normal 8.5-10.[address] [facility] Comment on above: Performed By: #### C MP, TSH, LIPID #### [facility] [address] [address] [address] Elmer Hopkins Chloride [Moles/Vol] 107 mmol/L Normal 98-107 [facility] Comment on above: Performed By: #### C MP, TSH, LIPID #### [facility] [address] [address] [address] Elmer Hopkins CO2 [Moles/Vol] 30.7 mmol/L Normal 21.0-32.0 [facility] Comment on above: Performed By: #### C MP, TSH, LIPID #### [facility] [address] [address] [address] Elmer Hopkins Creatinine [Mass/Vol] 0.94 mg/dL Normal 0.55-1.02 [facility] Comment on above: Performed By: #### C MP, TSH, LIPID #### [facility] [address] [address] [address] Elmer Hopkins EGFR-AF TAJIK >60 Normal >=60 [facility] Comment on above: Performed By: #### C MP, TSH, LIPID #### [facility] [address] [address] [address] Elmer Hopkins EGFR-NON AF TAJIK >60 Normal >=60 [facility] Comment on above: Performed By: #### C MP, TSH, LIPID #### [facility] [address] [address] [address] Elmer Hopkins Globulin (S) [Mass/Vol] 3.8 g/dL Normal [facility] Comment on above: Performed By: #### C MP, TSH, LIPID #### [facility] [address] [address] [address] Elmer Hopkins Glucose [Mass/Vol] 125 mg/dL Critically high 74-106 [facility] Comment on above: Performed By: #### C MP, TSH, LIPID #### [facility] [address] [address] [address] Elmer Hopkins Potassium [Moles/Vol] 4.0 mmol/L Normal 3.5-5.1 [facility] Comment on above: Performed By: #### C MP, TSH, LIPID #### [facility] [address] [address] [address] Elmer Hopkins Protein [Mass/Vol] 7.1 g/dL Normal 6.4-8.[address] [facility] Comment on above: Performed By: #### C MP, TSH, LIPID #### [facility] [address] [address] [address] Elmer Hopkins Sodium [Moles/Vol] 142 mmol/L Normal 136-145 [facility] Comment on above: Performed By: #### C MP, TSH, LIPID #### [facility] [address] [address] [address] Elmer oHpkins Urea nitrogen [Mass/Vol] 10.0 mg/dL Normal 7.0-18.0 [facility] Comment on above: Performed By: #### C MP, TSH, LIPID #### [facility] [address] [address] [address] Elmer Hopkins Urea nitrogen/Creatinine [Mass ratio] 10.6 mg/mg Normal [facility] Comment on above: Performed By: #### C MP, TSH, LIPID #### [facility] [address] [place] [address] Dr. Elmer Hopkins TSHon 08-13-2021 TSH 2.083 uIU/mL Normal 0.358-3.740 [facility] Comment on above: Performed By: #### C MP, TSH, LIPID #### [facility] [address] [address] [address] Elmer Hopkins AMYLASEon 10-15-2020 Amylase [Catalytic activity/Vol] 59 U/L Normal 31-110 [facility] Comment on above: Performed By: #### C MADM, LIPA, KEMAR, CMP ####[facility] [address] [id number] CARDIAC STEFFI ADMITon 021 CK [Catalytic activity/Vol] 80 U/L Normal 30-135 [facility] Comment on above: Performed By: #### C MADM, LIPA, KEMAR, CMP ####[facility] [address] [place], [place] [address]Guknqe [place] CK.MB [Mass/Vol] ng/mL Normal <=2.37 [facility] Comment on above: Performed By: #### C MADM, LIPA, KEMAR, CMP ####[facility] [address] [id number] HSTROP <4.0 Normal 4.0-35.5 [facility] Comment on above: Result Comment: CUT- OFF POINTS HAVE BEEN ESTABLISHED BASED ON THE FOURTH UNIVERSAL DEFINITIONS OF MYOCARDIAL INFARCTION. THE UPPER REFERENCE LIMIT (URL) OF TROPONIN, DEFINED THE 99TH PERCENTILE OF cTnI DISTRIBUTION IN A REFERENCE POPULATION, HAS BEEN CONFIRMED THE DECISION THRESHOLD FOR [place] DIAGNOSIS. Performed By: #### C GENESIS SUMMERS AMY, CMP ####[facility] [address] [id number] ALLI 30.0 ng/mL Normal <=61.5 [facility] Comment on above: Performed By: #### C GENESIS SUMMERS AMY, CMP ####[facility] [address] [id number] CBC AUTO DIFFon 10-15-2020 BASO # 0.1 103/ul Normal 0.0-0.1 [facility] Comment on above: Performed By: #### C BC ####[facility] [address] [place] [address] [place] Basophils/100 WBC (Bld) 0.4 % Normal 0.2-2.0 [facility] Comment on above: Performed By: #### C BC ####[facility] [address] [place] [address] [place] EO # 0.8 103/ul Critically high 0.0-0.7 [facility] Comment on above: Performed By: #### C BC ####[facility] [address] [place] [address] [place] Eosinophils/100 WBC (Bld) 6.1 % Normal 0.9-7.0 [facility] Comment on above: Performed By: #### C BC ####[facility] [address] [place], [place] [id number] [place] Erythrocyte distribution width (RBC) [Ratio] 13.2 % Normal 11.0-15.0 [facility] Comment on above: Performed By: #### C BC ####[facility] [address] [place], [place] [id number] [place] Hematocrit (Bld) [Volume fraction] 44.2 % Normal 36.0-48.0 [facility] Comment on above: Performed By: #### C BC ####[facility] [address] [place] Hemoglobin (Bld) [Mass/Vol] 14.8 g/dL Normal 12.0-16.0 [facility] Comment on above: Performed By: #### C BC ####[facility] Q[address] [place] IG # 0.05 10e3/ul Critically high 0.00-0.03 [facility] Comment on above: Performed By: #### C BC ####[facility] [address] [place] IG % 0.4 % Normal 0.0-0.5 [facility] Comment on above: Performed By: #### C BC ####[facility] [address] [place] [address] [place] LYMPH # 3.2 103/ul Normal 1.2-3.8 [facility] Comment on above: Performed By: #### C BC ####[facility] [address] [place] [address] [place] Lymphocytes/100 WBC (Bld) 24.1 % Normal 20.5-60.0 [facility] Comment on above: Performed By: #### C BC ####[facility] [address] [place] [address] [place] MANUAL DIFF REQ NO Normal [facility] Comment on above: Performed By: #### C BC ####[facility] M[address] [place] MCH (RBC) [Entitic mass] 30.9 pg Normal 26.7-34.0 [facility] Comment on above: Performed By: #### C BC ####[facility] [address] [place] MCHC (RBC) [Mass/Vol] 33.5 g/dL Normal 29.9-35.2 [facility] Comment on above: Performed By: #### C BC ####[facility] [address] [place], [place] [address]Kowrge Karen MCV (RBC) [Entitic vol] 92.3 fL Normal 81.0-99.0 [facility] Comment on above: Performed By: #### C BC ####[facility] [address] [place], [place] [address]Bignar [place] MONO # 1.0 103/ul Critically high 0.3-0.8 [facility] Comment on above: Performed By: #### C BC ####[facility] [address] [id number] Monocytes/100 WBC (Bld) 7.3 % Normal 1.7-12.0 [facility] Comment on above: Performed By: #### C BC ####[facility] [address] [place], [place] [address]Gerken [place] NEUT # 8.2 103/ul Critically high 1.4-6.5 [facility] Comment on above: Performed By: #### C BC ####[facility] [address] [place], [place] [address]Gerken [place] Neutrophils/100 WBC (Bld) 61.7 % Normal 43.0-75.0 [facility] Comment on above: Performed By: #### C BC ####[facility] [address] [place], [place] [id number] [place] Platelet mean volume (Bld) [Entitic vol] 9.7 fL Normal 9.5-13.5 [facility] Comment on above: Performed By: #### C BC ####[facility] [address] [id number] PLT 414 103/ul Normal 150-450 [facility] Comment on above: Performed By: #### C BC ####[facility] [address] [place], [place] [address]Gerken [place] RBC 4.79 106/ul Normal 4.20-5.40 [facility] Comment on above: Performed By: #### C BC ####[facility] [address] [place], [place] [address]Hymixo Karen WBC 13.3 103/ul Critically high 4.0-11.0 [facility] Comment on above: Performed By: #### C ####[facility] [address] [place], [place] [address] ABD/PELVIS WO CONon 10-15 CT [...] howeve (more content not included)... Normal [facility] LIPASEon 10-15-2020 Lipase [Catalytic activity/Vol] 70.0 U/L Normal 23.0-300.0 [facility] Comment on above: Performed By: #### C ALICEM, LIPA, KEMAR, CMP ####[facility] [address] [place], [place] [address]Fuhbak [place] URon 10-15-2020 , QUAL Negative Normal NEGATIVE [facility] Comment on above: Performed By: #### P REGU #### [facility] [address] [place], [place] [address] Greyraúl Giordanoen PROF 14(COMP METB)on 021 Albumin [Mass/Vol] 4.1 g/dL Normal 3.5-5.0 [facility] Comment on above: Performed By: #### C MADM, LIPA, KEMAR, CMP #### [facility] [address] [phone] [place] Albumin/Globulin [Mass ratio] 1.0 {ratio} Normal [facility] Comment on above: Performed By: #### C MADM, LIPA, KEMAR, CMP #### [facility] [address] [phone] [place] ALP [Catalytic activity/Vol] 93 U/L Normal 38-126 [facility] Comment on above: Performed By: #### C MADM, LIPA, KEMAR, CMP #### [facility] [address] [id number] [place] ALT [Catalytic activity/Vol] 90 U/L Critically high 9-52 [facility] Comment on above: Performed By: #### C MADM, LIPA, KEMAR, CMP #### [facility] [address] [phone] [place] Anion gap [Moles/Vol] 13.8 mmol/L Normal [facility] Comment on above: Performed By: #### C MADM, LIPA, KEMAR, CMP #### [facility] [address] [id number] [place] AST [Catalytic activity/Vol] 37 U/L Critically high 14-36 [facility] Comment on above: Performed By: #### C GENESIS SUMMERS KEMAR, CMP #### [facility] [address] [place] [address] [place] Bilirubin [Mass/Vol] 0.3 mg/dL Normal 0.2-1.3 [facility] Comment on above: Performed By: #### C GENESIS SUMMERS KEMAR, CMP #### [facility] [address] [place] [address] [place] Calcium [Mass/Vol] 9.4 mg/dL Normal 8.4-10.2 [facility] Comment on above: Performed By: #### C GENESIS SUMMERS KEMAR, CMP #### [facility] [address] [place] [address] [place] Chloride [Moles/Vol] 104 mmol/L Normal 98-107 [facility] Comment on above: Performed By: #### C MELINA LIPA, KEMAR, CMP #### [facility] [address] [place] [address] [place] CO2 [Moles/Vol] 28.0 mmol/L Normal 22.0-30.0 [facility] Comment on above: Performed By: #### C MELINA LIPA, KEMAR, CMP #### [facility] [address] [place] [address] [place] Creatinine [Mass/Vol] 0.80 mg/dL Normal 0.52-1.04 [facility] Comment on above: Performed By: #### C MADM LIPA, KEMAR, CMP #### [facility] [address] [place] [address] [place] EGFR-AF TAJIK >60 Normal >=60 [facility] Comment on above: Performed By: #### C ALICEM, LIPA, KEMAR, CMP #### [facility] [address] [place] [address] [place] EGFR-NON AF TAJIK >60 Normal >=60 [facility] Comment on above: Performed By: #### C ALICEM, LIPA, KEMAR, CMP #### [facility] [address] [address] [place] Globulin (S) [Mass/Vol] 4.0 g/dL Normal [facility] Comment on above: Performed By: #### C MADM, LIPA, KEMAR, CMP #### [facility] [address] [address] [place] Glucose [Mass/Vol] 86 mg/dL Normal 74-106 [facility] Comment on above: Performed By: #### C MADM, LIPA, KEMAR, CMP #### [facility] [address] [address] [place] Potassium [Moles/Vol] 3.8 mmol/L Normal 3.4-5.0 [facility] Comment on above: Performed By: #### C MADM, LIPA, KEMAR, CMP #### [facility] [address] [place] [address] [place] Protein [Mass/Vol] 8.1 g/dL Normal 6.1-8.2 [facility] Comment on above: Performed By: #### C MADM, LIPA, KEMAR, CMP #### [facility] [address] [place] [address] [place] Sodium [Moles/Vol] 142 mmol/L Normal 137-145 [facility] Comment on above: Performed By: #### C MADM, LIPA, KEMAR, CMP #### [facility] [address] [place] [address] [place] Urea nitrogen [Mass/Vol] 11.0 mg/dL Normal 7.0-17.0 [facility] Comment on above: Performed By: #### C MADM, LIPA, KEMAR, CMP #### [facility] [address] [address] [place] Urea nitrogen/Creatinine [Mass ratio] 13.8 mg/mg Normal [facility] Comment on above: Performed By: #### C MADM, LIPA, KEMAR, CMP #### [facility] [address] [phone] [place] ER URINE PROFILEon 1 Bilirubin Ql (U) Negative Normal NEGATIVE [facility] Comment on above: Performed By: #### E RUR #### [facility] [address] [place] [address] [place] Clarity (U) CLEAR Normal CLEAR [facility] Comment on above: Performed By: #### E RUR #### [facility] [address] [place] [address] [place] Color (U) YELLOW Normal YELLOW [facility] Comment on above: Performed By: #### E RUR #### [facility] [address] [place], [place] [phone] [place] ERUAHD A micrscopic examination will be performed if indicated. Normal [facility] Comment on above: Performed By: #### E RUR #### [facility] [address] [place] [address] [place] Glucose Ql (U) Negative Normal NEGATIVE [facility] Comment on above: Performed By: #### E RUR #### [facility] [address] [place] [address] [place] Hemoglobin Ql (U) Negative Normal NEGATIVE [facility] Comment on above: Performed By: #### E RUR #### [facility] [address] [place] [address] [place] Ketones Ql (U) TRACE Abnormal NEGATIVE [facility] Comment on above: Performed By: #### E RUR #### [facility] [address] [place] [address] [place] LEUKOCYTES Negative Normal NEGATIVE [facility] Comment on above: Performed By: #### E RUR #### [facility] [address] [place], [place] [phone] [place] Nitrite Ql (U) Negative Normal NEGATIVE [facility] Comment on above: Performed By: #### E RUR #### [facility] [address] [place] [address] [place] pH (U) 6.0 [pH] Normal 5-9 [facility] Comment on above: Performed By: #### E RUR #### [facility] [address] [phone] [place] SPEC GRAVITY 1.025 Normal 1.005-<=1.025 [facility] Comment on above: Performed By: #### E RUR #### [facility] [address] [place], [place] [phone] [place] UA PROTEIN Negative Normal NEGATIVE/ TRACE [facility] Comment on above: Performed By: #### E RUR #### [facility] [address] [place] [address] [place] UR MICRO IND NOT INDICATED Normal [facility] Comment on above: Performed By: #### E RUR #### [facility] [address] [place] [address] [place] Urobilinogen Qn (U) 0.2 {Rachel'U}/dL Normal 0.2 - 1. 0 [facility] Comment on above: Performed By: #### E RUR #### [facility] [address] [place], [place] [phone] [place] CBCon 09-03-2020 Erythrocyte distribution width (RBC) [Ratio] 12.4 % Normal 11.8-14.4 [facility] Comment on above: Performed By: #### C BC, HCG, CP #### [facility] [address] [place] [address] [place] [address] [employer]: Josué Monae MD #### HIVCMB, PHEP #### [facility] [employer] [address] [place] [address] [employer]: Thang Nielsen MD Hematocrit (Bld) [Volume fraction] 47.9 % High 36.3-47.1 [facility] Comment on above: Performed By: #### C BC, HCG, CP #### [facility] [address] [place] [address] [employer]: Josué Monae MD #### HIVCMB, PHEP #### [address] [place], [place] [phone] [employer]: Thang Nielsen MD Hemoglobin (Bld) [Mass/Vol] 15.6 g/dL High 11.9-15.1 [facility] Comment on above: Performed By: #### C BC, HCG, CP #### [address] [place] [address] [employer]: Josué Monae MD #### HIVCMB, PHEP #### [address] [phone] [employer]: Thang Nielsen MD MCH (RBC) [Entitic mass] 30.6 pg Normal 25.2-33.5 [facility] Comment on above: Performed By: #### C BC, HCG, CP #### [address] [phone] [employer]: Josué Monae MD #### HIVCMB, PHEP #### [address] [phone] [employer]: Thang Nielsen MD MCHC (RBC) [Mass/Vol] 32.6 g/dL Normal 28.4-34.8 [facility] Comment on above: Performed By: #### C BC, HCG, CP #### [address] [place] [phone] [employer]: Josué Monae MD #### HIVCMB, PHEP #### [address] [phone] [employer]: Thang Nielsen MD MCV (RBC) [Entitic vol] 94.1 fL Normal 82.6-102.9 [facility] Comment on above: Performed By: #### C BC, HCG, CP #### [address] [place] [address] [employer]: Josué Monae MD #### HIVCMB, PHEP #### [address] [place], [place] [phone] [employer]: Thang Nielsen MD NRBC Automated 0.0 per 100 WBC Normal 0.0 [facility] Comment on above: Performed By: #### C BC, HCG, CP #### [address] [phone] [employer]: Josué Monae MD #### HIVCMB, PHEP #### [address] [address] [employer]: Thang Nielsen MD Platelet mean volume (Bld) [Entitic vol] 9.8 fL Normal 8.1-13.5 [facility] Comment on above: Performed By: #### C BC, HCG, CP #### [address] [place] [phone] [employer]: Josué Monae MD #### HIVCMB, PHEP #### [address] [phone] [employer]: Thang Nielsen MD Platelets (Bld) [#/Vol] 394 10*3/uL Normal 138-453 [facility] Comment on above: Performed By: #### C BC, HCG, CP #### [address] [place] [phone] [employer]: Josué Monae MD #### HIVCMB, PHEP #### [address] [phone] [employer]: Thang Nielsen MD RBC (Bld) [#/Vol] 5.09 10*6/uL Normal 3.95-5.11 [facility] Comment on above: Performed By: #### C BC, HCG, CP #### [address] [place] [phone] [employer]: Josué Monae MD #### HIVCMB, PHEP #### [facility] [address] [place] [address] [employer]: Thang Nielsen MD WBC (Bld) [#/Vol] 9.1 10*3/uL Normal 3.5-11.3 [facility] Comment on above: Performed By: #### C BC, HCG, CP #### [facility] [address] [place] [address] [employer]: Josué Monae MD #### HIVCMB, PHEP #### [facility] [employer] [address] [place] [address] [employer]: Thang Nielsen MD CBCOrdered By: Channing Yin on 09-03-2020 Hematocrit (Bld) [Volume fraction] 47.9 % High 36.3 - 47.1 % [employer] Phone: Hemoglobin.gastroint estinal spec 1 Ql (Stl) 15.6 g/dL High 11.9 - 15.1 g/dL [employer] Phone: Interpretation and review of laboratory results Abnormal [employer] Phone: MCH (RBC) [Entitic mass] 30.6 pg 25.2 - 33.5 pg [employer] Phone: MCHC (RBC) [Mass/Vol] 32.6 g/dL 28.4 - 34.8 g/dL [employer] Phone: MCV (RBC) [Entitic vol] 94.1 fL 82.6 - 102.9 fL [employer] Phone: NRBC Automated 0.0 0.0 per 100 WBC [employer] Phone: Platelet distribution width (Bld) [Ratio] 12.4 % 11.8 - 14.4 % [employer] Phone: Platelet mean volume (Bld) [Entitic vol] 9.8 fL 8.1 - 13.5 fL [facility] Phone: Platelets (Bld) [#/Vol] 394 10*3/uL [facility] [employer] Work Phone: RBC (Bld) [#/Vol] 5.09 10*6/uL 3.95 - 5.1 1 m/uL [facility] [employer] Phone: WBC (Bld) [#/Vol] 9.1 10*3/uL [facility] Phone: [facility] Phone: Comp Metabolic Profon 2020 (cont.) Normal [facility] Comment on above: Result Comment: Aver age GFR for 30-39 years old: 107 mL/min/1.73sq m Chronic Kidney Disease: <60 mL/min/1.73sq m Kidney failure: <15 mL/min/1.73sq m eGFR calculated using average adult body mass. Additional eGFR calculator available at: http://www.[employer]/multiple_crcl_2011.htm Performed By: #### C BC, HCG, CP #### [address] [place] [address] [employer]: Josué Monae MD #### HIVCMB, PHEP #### [facility] [employer] [address] [place] [address] [employer]: Thang Nielsen MD Albumin [Mass/Vol] 4.2 g/dL Normal 3.5-5.2 [facility] Comment on above: Performed By: #### C BC, HCG, CP #### [address] [place] [address] [employer]: Josué Monae MD #### HIVCMHayley, PHEP #### [facility] [employer] [address] [place] [phone] [employer]: Thang Nielsen MD Albumin/Glob Ratio 1.2 Normal 1.0-2.5 [facility] Comment on above: Performed By: #### C BC, HCG, CP #### [facility] [address] [place] [address] [address] [place], [place] [phone] [employer]: Josué Monae MD #### HIVCMB, PHEP #### [address] [address] [employer]: Thang Nielsen MD Alkaline Phos 116 U/L High 35-104 [facility] Comment on above: Performed By: #### C BC, HCG, CP #### [address] [place], [place] [phone] [employer]: Josué Monae MD #### HIVCMB, PHEP #### [address] [address] [employer]: Thang Nielsen MD ALT [Catalytic activity/Vol] 96 U/L High 5-33 [facility] Comment on above: Performed By: #### C BC, HCG, CP #### [address] [place], [place] [phone] [employer]: Josué Monae MD #### HIVCMB, PHEP #### [address] [address] [employer]: Thang Nielsen MD Anion gap [Moles/Vol] 11 mmol/L Normal 9-17 [facility] Comment on above: Performed By: #### C BC, HCG, CP #### [facility] [address] [place] [address] [address] [place], [place] [phone] [employer]: Josué Monae MD #### HIVCMB, PHEP #### [facility] [address] [place] [address] [employer]: Thang Nielsen MD AST [Catalytic activity/Vol] 61 U/L High <32 [facility] Comment on above: Performed By: #### C BC, HCG, CP #### [facility] [address] [place], [place] [phone] [employer]: Josué Monae MD #### HIVCMB, PHEP #### [address] [phone] [employer]: Thang Nielsen MD Bilirubin [Mass/Vol] 1.47 mg/dL High 0.3-1.2 [facility] Comment on above: Performed By: #### C BC, HCG, CP #### [facility] [address] [place], [place] [phone] [employer]: Josué Monae MD #### HIVCMB, PHEP #### [address] [phone] [employer]: Thang Nielsen MD BUN/CRE Ratio 17 Normal 9-20 [facility] Comment on above: Performed By: #### C BC, HCG, CP #### [facility] [address] [place], [place] [phone] [employer]: Josué Monae MD #### HIVCMB, PHEP #### [address] [phone] [employer]: Thang Nielsen MD Calcium [Mass/Vol] 9.7 mg/dL Normal 8.6-10.4 [facility] Comment on above: Performed By: #### C BC, HCG, CP #### [facility] [address] [place], [place] [phone] [employer]: Josué Monae MD #### HIVCMB, PHEP #### [address] [phone] [employer]: Thang Nielsen MD Chloride [Moles/Vol] 104 mmol/L Normal 98-107 [facility] Comment on above: Performed By: #### C BC, HCG, CP #### [facility] [address] [place], [place] [phone] [employer]: Josué Monae MD #### HIVCMB, PHEP #### [address] [address] [employer]: Thang Nielsen MD CO2 [Moles/Vol] 26 mmol/L Normal 20-31 [facility] Comment on above: Performed By: #### C BC, HCG, CP #### [facility] [address] [place], [place] [phone] [employer]: Josué Monae MD #### HIVCMB, PHEP #### [address] [address] [employer]: Thang Nielsen MD Creatinine [Mass/Vol] 0.76 mg/dL Normal 0.50-0.90 [facility] Comment on above: Performed By: #### C BC, HCG, CP #### [facility] [address] [place], [place] 1600[address] [employer]: Josué Monae MD #### HIVCMB, PHEP #### [address] [address] [employer]: Thang Nielsen MD GFR, Amer >60 Normal >60 [facility] Comment on above: Performed By: #### C BC, HCG, CP #### [facility] [address] [place], [place] [phone] [employer]: Josué Monae MD #### HIVCMB, PHEP #### [address] [address] [employer]: Thang Nielsen MD GFR,non Amer >60 Normal >60 [facility] Comment on above: Performed By: #### C BC, HCG, CP #### [facility] [address] [place], [place] [phone] [employer]: Josué Monae MD #### HIVCMB, PHEP #### [address] [place], [place] 1557[address] [employer]: Thang Nielsen MD Glucose [Mass/Vol] 112 mg/dL High 70-99 [facility] Comment on above: Performed By: #### C BC, HCG, CP #### [facility] [address] [place], [place] 365[address] [employer]: Josué Monae MD #### HIVCMB, PHEP #### [address] [phone] [employer]: Thang Nielsen MD Potassium [Moles/Vol] 4.0 mmol/L Normal 3.7-5.3 [facility] Comment on above: Performed By: #### C BC, HCG, CP #### [facility] [address] [place] [address] [place], [place] [phone] [employer]: Josué Monae MD #### HIVCMB, PHEP #### [address] [place], [place] 2617208 [employer]: Thang Nielsen MD Protein [Mass/Vol] 7.6 g/dL Normal 6.4-8.3 [facility] Comment on above: Performed By: #### C BC, HCG, CP #### [facility] [address] [place] [address] [place], [place] [phone] [employer]: Josué Monae MD #### HIVCMB, PHEP #### [address] [phone] [employer]: Thang Nielsen MD Sodium [Moles/Vol] 141 mmol/L Normal 135-144 [facility] Comment on above: Performed By: #### C BC, HCG, CP #### [address] [place] [address] [employer]: Josué Monae MD #### HIVCMB, PHEP #### [address] [phone] [employer]: Thang Nielsen MD Staging: Normal [facility] Comment on above: Result Comment: Stag e 1: Some kidney damage normal GFR Stage 2: Mild kidney damage GFR 60-89 Stage 3: Moderate kidney damage GFR 30-59 Stage 4: Severe kidney damage GFR 15-29 Stage 5: Severe kidney damage GFR <15 ESRD - chronic treatment by dialysis or transplant Performed By: #### C BC, HCG, CP #### [address] [place] [address] [employer]: Josué Monae MD #### HIVCMB, PHEP #### [address] [phone] [employer]: Thang Nielsen MD Urea nitrogen [Mass/Vol] 13 mg/dL Normal 6-20 [facility] Comment on above: Performed By: #### C BC, HCG, CP #### [address] [place] [address] [employer]: Josué Monae MD #### HIVCMB, PHEP #### [address] [phone] [employer]: Thang Nielsen MD Comprehensive Metabolic Pane lOrdered By: Channing Yin on 09-03-2020 Albumin [Mass/Vol] 4.2 g/dL 3.5 - 5.2 g/dL [facility] [employer] Work Phone: Albumin/Globulin [Mass ratio] 1.2 {ratio} [facility] [employer] Phone: ALP (Bld) [Catalytic activity/Vol] 116 U/L High 35 - 104 U/L [facility] Work Phone: ALT [Catalytic activity/Vol] 96 U/L High 5 - 33 U/L [employer] Phone: Anion gap [Moles/Vol] 11 mmol/L 9 - 17 mmol/L [facility] Phone: AST [Catalytic activity/Vol] 61 U/L High <32 [employer] Phone: Bilirubin [Mass/Vol] 1.47 mg/dL High 0.3 - 1.2 mg/dL [employer] Phone: Calcium [Mass/Vol] 9.7 mg/dL 8.6 - 10. 4 mg/dL [employer] Phone: Chloride [Moles/Vol] 104 mmol/L 98 - 107 mmol/L [facility] Phone: CO2 [Moles/Vol] 26 mmol/L 20 - 31 mmol/L [facility] Phone: Creatinine [Mass/Vol] 0.76 mg/dL 0.50 - 0.90 mg/dL [employer] Phone: Free PSA/Total PSA [Mass fraction] 7.6 g/dL 6.4 - 8.3 g/dL [facility] Phone: GFR >60 >60 mL/min [employer] Phone: GFR Non- >60 >60 mL/min [facility] Phone: Glucose [Mass/Vol] 112 mg/dL High 70 - 99 mg/dL [facility] [employer] Work Phone: Interpretation and review of laboratory results Abnormal [employer] Phone: Potassium [Moles/Vol] 4.0 mmol/L 3.7 - 5.3 mmol/L [facility] Phone: Sodium [Moles/Vol] 141 mmol/L 135 - 144 mmol/L [facility] Phone: Urea nitrogen (BldV) [Mass/Vol] 13 mg/dL 6 - 20 mg/dL [employer] Phone: Urea nitrogen/Creatinine (Bld) [Mass ratio] 17 [employer] Phone: [employer] Phone: HCG Qualitative, SerumOrdere d By: Channing Yin on 09-03-2020 hCG Qual Negative NEGATIVE [employer] Phone: Comment on above: Specimens with hCG l evels near the threshold of the test (25 mIU/mL) may give a negative or indeterminate result. In such cases, another test should be performed with a new specimen in 48-72 hours. If early is suspected clinically in this setting, correlation with quantitative serum b-hCG level is suggested. [employer] has confirmed the use of plasma for this test. This has not been cleared or approved by the U.S. Food and Drug Administration. The FDA has determined that such clearance is not necessary. [employer] Phone: HCG Screen, Bloodon 09-04-19 21 HCG Screen, Blood Negative Normal NEG [facility] Comment on above: Result Comment: Spec imens with hCG levels near the threshold of the test (25 mIU/mL) may give a negative or indeterminate result. In such cases, another test should be performed with a new specimen in 48-72 hours. If early is suspected clinically in this setting, correlation with quantitative serum b-hCG level is suggested. [employer] has confirmed the use of plasma for this test. This has not been cleared or approved by the U.S. Food and Drug Administration. The FDA has determined that such clearance is not necessary. Performed By: #### C BC, HCG, CP #### [facility] [address] [place] [address] [employer]: Josué Monae MD #### HIVCMB, PHEP #### [facility] [address] [place] [address] [employer]: Thang Nielsen MD HIV Ag/Abon 09-03-2020 HIV Ag/Ab Non-Reactive Normal NR [facility] Comment on above: Result Comment: No l aboratory evidence of HIV infection. If acute HIV infection is suspected, consider testing for HIV-1 RNA. Performed By: #### C BC, HCG, CP #### [facility] [address] [place] [address] [address] [place], [place] [phone] [employer]: Josué Monae MD #### HIVCMB, PHEP #### [facility] [address] [place] [address] [employer]: Thang Nielsen MD HIV ScreenOrdered By: Channing Yin on 09-03-2020 HIV Ag/Ab Non-Reactive NONREACTIVE [facility] Work Phone: Comment on above: No laboratory eviden ce of HIV infection. If acute HIV infection is suspected, consider testing for HIV-1 RNA. [facility] Work Phone: Hepatitis Acute [facility] 09-03 Hep A Ab,IgM Non-Reactive Normal NR [facility] Comment on above: Performed By: #### C BC, HCG, CP #### [address] [place] [address] [employer]: Josué Monae MD #### HIVCMB, PHEP #### [address] [address] [employer]: Thang Nielsen MD Hep B Core Ab,IgM Non-Reactive Normal NR [facility] Comment on above: Performed By: #### C BC, HCG, CP #### [facility] [address] [place] [address] [employer]: Josué Monae MD #### HIVCMB, PHEP #### [facility] [address] [place] [address] [employer]: Thang Nielsen MD Hep B Surf Ag Non-Reactive Normal [facility] Comment on above: Performed By: #### C BC, HCG, CP #### [facility] [address] [place] [address] [place] [address] [employer]: Josué Monae MD #### HIVCMB, PHEP #### [facility] [address] [place], [place] [phone] [employer]: Thang Nielsen MD Hep C Ab Reactive Abnormal NR [facility] Comment on above: Result Comment: The hepatitis [...] By: #### C BC, HCG, CP #### [address] [place] [address] [employer]: Josué Monae MD #### HIVCMB, PHEP #### [facility] [address] [place], [place] [phone] [employer]: Thang Nielsen MD Hepatitis Panel, AcuteOrdere d By: Channing Yin on 09-03-2020 HAV IgM IA Qn (S) Non-Reactive NONREACTIVE [facility] Work Phone: Hep B Core Ab, IgM Non-Reactive NONREACTIVE [facility] Work Phone: Hepatitis B Surface Ag Non-Reactive NONREACTIVE [facility] Work Phone: Hepatitis C Ab Reactive Abnormal NONREACTIVE [facility] Work Phone: Comment on above: The [...] Interpretation and review of laboratory results Abnormal [employer] Phone: [employer] Phone: Laboratory - Chemistry and C hemistry - challengeOrdered By: Channing Yin on 09-03-2020 GFR/1.73 sq M.predicted MDRD (S/P/Bld) [Vol rate/Area] [employer] Phone: Comment on above: Average GFR for 30-3 9 years old: 107 mL/min/1.73sq m Chronic Kidney Disease: <60 mL/min/1.73sq m Kidney failure: <15 mL/min/1.73sq m eGFR calculated using average adult body mass. Additional eGFR calculator available at: http://www.[employer]/multiple_crcl_2012.htm Stage 1: Some kidney damage normal GFR [...] with the dentist because she moved from [place] to [place]. She denies ear pain and a sore [...] ibuprofen, if needed. She may use Anbesol [id number]-xhl-ixfujuj topically. Discussed importance of follow up with [...] cholesterol: Father. Hypertension: Father. Rheumatoid arthritis: Mother. [facility] Comment on above: Result Comment: Elec tronically Signed By: Dyan GREENE CNP\.br\Date and Time Signed: 04/13/20 12:00 EST\.br\Electronically Co-Signed By: Letitia Salazar\.br\Date and Time Co-Signed: 04/09/20 21:38 EST Ambulatory Clinical Summaryo n 04-09-2020 Ambulatory Clinical Summary {[id number] [facility] Patient Educationon 04-10-19 21 Patient [...] ovarian syndrome (PCOS). ? Binge-eating disorder. ? Sanford syndrome. ? Taking certain medicines, such as [...] food choices, such as grocery stores and [employer]. What are the signs or symptoms? The [...] how much exercise you get. ? Take mmyh-ugs-bacjfgw and prescription medicines only as told by [...] 03/02/2005 Document Revised: 09/27/2018 Document Reviewed: 09/27/2018 [employer] Patient Education ? 2020 [employer] Technology. Pulmonary Medicine Health Risks of Smoking Smoking [...] increased risk of the following: ? Sudden infant syndrome (SIDS). ? Respiratory infections. ? Lung [...] methods. Where to find more information ? [place] [employer]: www.lung.org ? [place] [employer]: www.cancer.org Summary ? Smoking cigarettes [...] 03/02/2005 Document Revised: 04/26/2018 Document Reviewed: 01/27/2017 [employer] Patient Education ? 2020 [employer]. [facility] HCV RNA,Quant,PCRon 11-19-19 20 HCV [...] Health Department Report Status FINAL 11/19/2019 Normal [facility] Comment on above: Performed By: #### H CVQ #### [address] [phone] [employer]: Thang Nielsen MD [address] [place] [address] [employer]: Arnoldo Soni MD [facility] 11-15-2019 Erythrocyte distribution width (RBC) [Ratio] 12.6 % Normal 11.8-14.4 [facility] Comment on above: Performed By: #### C BC, CP, HCG #### [address] [place] [phone] [employer]: Arnoldo Soni MD #### PHEP HIVCMB #### [address] [address] [employer]: Thang Nielsen MD Hematocrit (Bld) [Volume fraction] 45.5 % Normal 36.3-47.1 [facility] Comment on above: Performed By: #### C BC, CP, HCG #### [address] [place] [address] [employer]: Arnoldo Soni MD #### SAL[place]OR HIVCMB #### [address] [phone] [employer]: Thang Nielsen MD Hemoglobin (Bld) [Mass/Vol] 14.7 g/dL Normal 11.9-15.1 [facility] Comment on above: Performed By: #### C BC, CP, HCG #### [address] [place] [phone] [employer]: Arnoldo Soni MD #### PHEP, HIVCMB #### [place] [address] [place], [place] [phone] [employer]: Thang Nielsen MD MCH (RBC) [Entitic mass] 31.3 pg Normal 25.2-33.5 [facility] Comment on above: Performed By: #### C BC, CP, HCG #### [address] [place] [phone] [employer]: Arnoldo Soni MD #### PHEP, HIVCMB #### [address] [phone] [employer]: Thang Nielsen MD MCHC (RBC) [Mass/Vol] 32.3 g/dL Normal 28.4-34.8 [facility] Comment on above: Performed By: #### C BC, CP, HCG #### [address] [place] [phone] [employer]: Arnoldo Soni MD #### PHEP, HIVCMB #### [address] [place], [place] [phone] [employer]: Thang Nielsen MD MCV (RBC) [Entitic vol] 97.0 fL Normal 82.6-102.9 [facility] Comment on above: Performed By: #### C BC, CP, HCG #### [address] [place] [address] [employer]: Arnoldo Soni MD #### PHEP, HIVCMB #### [address] [place] [address] [employer]: Thang Nielsen MD NRBC Automated 0.0 per 100 WBC Normal 0.0 [facility] Comment on above: Performed By: #### C BC, CP, HCG #### [facility] [address] [place] [phone] [employer]: Arnoldo Soni MD #### PHEP, HIVCMB #### [address] [address] [employer]: Thang Nielsen MD Platelet mean volume (Bld) [Entitic vol] 10.3 fL Normal 8.1-13.5 [facility] Comment on above: Performed By: #### C BC, CP, HCG #### [address] [place] [phone] [employer]: Arnoldo Soni MD #### PHEP, HIVCMB #### [address] [phone] [employer]: Thang Nielsen MD Platelets (Bld) [#/Vol] 434 10*3/uL Normal 138-453 [facility] Comment on above: Performed By: #### C BC, CP, HCG #### [facility] [address] [place] [address] [address] [place] [phone] [employer]: Arnoldo Soni MD #### PHEP, HIVCMB #### [address] [address] [employer]: Thang Nielsen MD RBC (Bld) [#/Vol] 4.69 10*6/uL Normal 3.95-5.11 [facility] Comment on above: Performed By: #### C BC, CP, HCG #### [facility] [address] [place] [phone] [employer]: Arnoldo Soni MD #### PHEP, HIVCMB #### [facility] [address] [place], [place] [phone] [employer]: Thang Nielsen MD WBC (Bld) [#/Vol] 7.9 10*3/uL Normal 3.5-11.3 [facility] Comment on above: Performed By: #### C BC, CP, HCG #### [facility] [address] [place] [address] [employer]: Arnoldo Soni MD #### PHEP, HIVCMB #### [facility] [address] [place] [address] [employer]: Thang Nielsen MD Erythrocyte distribution width (RBC) [Ratio] 12.6 % 11.8 - 14.4 % [place] Hematocrit (Bld) [Volume fraction] 45.5 % 36.3 - 47.1 % [place] Hemoglobin (Bld) [Mass/Vol] 14.7 g/dL 11.9 - 15.1 g/dL [place] MCH (RBC) [Entitic mass] 31.3 pg 25.2 - 33.5 pg [place] MCHC (RBC) [Mass/Vol] 32.3 g/dL 28.4 - 34.8 g/dL [place] MCV (RBC) [Entitic vol] 97.0 fL 82.6 - 102.9 fL [place] Platelet mean volume (Bld) [Entitic vol] 10.3 fL 8.1 - 13.5 fL [place], [place] Platelets (Bld) [#/Vol] 434 10*3/uL [place] RBC (Bld) [#/Vol] 4.69 10*6/uL 3.95 - 5.1 1 m/uL [place] WBC (Bld) [#/Vol] 0.0 10*3/uL 0.0 per 100 WBC [place] WBC (Bld) [#/Vol] 7.9 10*3/uL [place] Comp Metabolic Profon 2019 (cont.) Normal [facility] Comment on above: Result Comment: Aver age GFR for 30-39 years old: 107 mL/min/1.73sq m Chronic Kidney Disease: <60 mL/min/1.73sq m Kidney failure: <15 mL/min/1.73sq m eGFR calculated using average adult body mass. Additional eGFR calculator available at: http://www.[employer]/multiple_crcl_2012.htm Performed By: #### C BC, CP, HCG #### [facility] [address] [place], [place] [phone] [employer]: Arnoldo Soni MD #### PHEDonald, HIVCMB #### [address] [phone] [employer]: Thang Nielsen MD Albumin [Mass/Vol] 3.8 g/dL Normal 3.5-5.2 [facility] Comment on above: Performed By: #### C BC, CP, HCG #### [facility] [address] [place], [place] [phone] [employer]: Arnoldo Soni MD #### PHEP, HIVCMB #### [address] [phone] [employer]: Thang Nielsen MD Albumin/Glob Ratio 1.2 Normal 1.0-2.5 [facility] Comment on above: Performed By: #### C BC, CP, HCG #### [facility] [address] [place], [place] [phone] [employer]: Arnoldo Soni MD #### PHEDonald, HIVCMB #### [address] [address] [employer]: Thang Nielsen MD Alkaline Phos 72 U/L Normal 35-104 [facility] Comment on above: Performed By: #### C BC, CP, HCG #### [facility] [address] [place], [place] [phone] [employer]: Arnoldo Soni MD #### PHEP, HIVCMB #### [address] [place], [place] [phone] [employer]: Thang Nielsen MD ALT [Catalytic activity/Vol] 72 U/L High 5-33 [facility] Comment on above: Performed By: #### C BC, CP, HCG #### [facility] [address] [place], [place] [phone] [employer]: Arnoldo Soni MD #### PHEP, HIVCMB #### [address] [phone] [employer]: Thang Nielsen MD Anion gap [Moles/Vol] 9 mmol/L Normal 9-17 [facility] Comment on above: Performed By: #### C BC, CP, HCG #### [facility] [address] [place] [address] [address]. [place], [place] [phone] [employer]: Arnoldo Soni MD #### PHEP, HIVCMB #### [address] [phone] [employer]: Thang Nielsen MD AST [Catalytic activity/Vol] 49 U/L High <32 [facility] Comment on above: Performed By: #### C BC, CP, HCG #### [facility] [address] [place] [address] Dr. [place], [place] 1906183 [employer]: Arnoldo Soni MD #### PHEP, HIVCMB #### [address] [address] [employer]: Thang Nielsen MD Bilirubin [Mass/Vol] 0.32 mg/dL Normal 0.3-1.2 [facility] Comment on above: Performed By: #### C BC, CP, HCG #### [facility] [address] [place] [address] [address] [place] [phone] [employer]: Arnoldo Soni MD #### PHEP, HIVCMB #### [address] [phone] [employer]: Thang Nielsen MD BUN/CRE Ratio 18 Normal 9-20 [facility] Comment on above: Performed By: #### C BC, CP, HCG #### [facility] [address] [place] [address] Dr[address] [place] [phone] [employer]: Arnoldo Soni MD #### PHEP, HIVCMB #### [address] [address] [employer]: Thang Nielsen MD Calcium [Mass/Vol] 9.3 mg/dL Normal 8.6-10.4 [facility] Comment on above: Performed By: #### C BC, CP, HCG #### [address] [place] [phone] [employer]: Arnoldo Soni MD #### PHEP, HIVCMB #### [address] [address] [employer]: Thang Nielsen MD Chloride [Moles/Vol] 105 mmol/L Normal 98-107 [facility] Comment on above: Performed By: #### C BC, CP, HCG #### [address] [place] [phone] [employer]: Arnoldo Soni MD #### PHEP, HIVCMB #### [address] [address] [employer]: Thang Nielsen MD CO2 [Moles/Vol] 25 mmol/L Normal 20-31 [facility] Comment on above: Performed By: #### C BC, CP, HCG #### [address] [place] [phone] [employer]: Arnoldo Soni MD #### PHEP, HIVCMB #### [address] [place], [place] [phone] [employer]: Thang Nielsen MD Creatinine [Mass/Vol] 0.57 mg/dL Normal 0.50-0.90 [facility] Comment on above: Performed By: #### C BC, CP, HCG #### [facility] [address] [place], [place] [phone] [employer]: Arnoldo Soni MD #### PHEP, HIVCMB #### [address] [phone] [employer]: Thang Nielsen MD GFR, Amer >60 Normal >60 [facility] Comment on above: Performed By: #### C BC, CP, HCG #### [facility] [address] [place] [address] [address]. [place], [place] [phone] [employer]: Arnoldo Soni MD #### PHEP, HIVCMB #### [address] [phone] [employer]: Thang Nielsen MD GFR,non Amer >60 Normal >60 [facility] Comment on above: Performed By: #### C BC, CP, HCG #### [facility] [address] [place] [address] Dr. [place], [place] [phone] [employer]: Arnoldo Soni MD #### PHEP, HIVCMB #### [address] [address] [employer]: Thang Nielsen MD Glucose [Mass/Vol] 120 mg/dL High 70-99 [facility] Comment on above: Performed By: #### C BC, CP, HCG #### [facility] [address] [place] [address] [employer]: Arnoldo Soni MD #### PHEP, HIVCMB #### [address] [place] [address] [employer]: Thang Nielsen MD Potassium [Moles/Vol] 3.7 mmol/L Normal 3.7-5.3 [facility] Comment on above: Performed By: #### C BC, CP, HCG #### [address] [place], [place] [phone] [employer]: Arnoldo Soni MD #### PHEP, HIVCMB #### [address] [place] [address] [employer]: Thang Nielsen MD Protein [Mass/Vol] 7.1 g/dL Normal 6.4-8.3 [facility] Comment on above: Performed By: #### C BC, CP, HCG #### [address] [place], [place] [phone] [employer]: Arnoldo Soni MD #### PHEP, HIVCMB #### [address] [address] [employer]: Thang Nielsen MD Sodium [Moles/Vol] 139 mmol/L Normal 135-144 [facility] Comment on above: Performed By: #### C BC, CP, HCG #### [address] [place], [place] 3929583 [employer]: Arnoldo Soni MD #### PHEP, HIVCMB #### [address] [address] [employer]: Thang Nielsen MD Staging: Normal [facility] Comment on above: Result Comment: Stag e 1: Some kidney damage normal GFR Stage 2: Mild kidney damage GFR 60-89 Stage 3: Moderate kidney damage GFR 30-59 Stage 4: Severe kidney damage GFR 15-29 Stage 5: Severe kidney damage GFR <15 ESRD - chronic treatment by dialysis or transplant Performed By: #### C BC, CP, HCG #### [address] [place] [address] [employer]: Arnoldo Soni MD #### PHEP, HIVCMB #### [facility] [address] [place], [place] [phone] [employer]: Thang Nielsen MD Urea nitrogen [Mass/Vol] 10 mg/dL Normal 6-20 [facility] Comment on above: Performed By: #### C BC, CP, HCG #### [facility] [address] [place] [address] [employer]: Arnoldo Soni MD #### PHEDonald, HIVCMB #### [facility] [address] [place], [place] [phone] [employer]: Thang Nielsen MD Comprehensive Metabolic Pane [facility] 11-15-2019 Albumin [Mass/Vol] 3.8 g/dL 3.5 - 5.2 g/dL [place], [place] Albumin/Globulin [Mass ratio] 1.2 {ratio} [place] ALP [Catalytic activity/Vol] 72 U/L 35 - 104 U/L [place] ALT [Catalytic activity/Vol] 72 U/L High 5 - 33 U/L [place] Anion gap [Moles/Vol] 9 mmol/L 9 - 17 mmol/L [place] AST [Catalytic activity/Vol] 49 U/L High <32 [place] Bilirubin Ql (U) 0.32 mg/dL 0.3 - 1.2 mg/dL [place], [place] Bun/Cre Ratio 18 [place], [place] Calcium [Mass/Vol] 9.3 mg/dL 8.6 - 10. 4 mg/dL [place] Chloride [Moles/Vol] 105 mmol/L 98 - 107 mmol/L [place] CO2 [Moles/Vol] 25 mmol/L 20 - 31 mmol/L [place] Creatinine [Mass/Vol] 0.57 mg/dL 0.5 - 0.9 mg/dL [place] GFR >60 >60 mL/min [place], [place] GFR Non- >60 >60 mL/min [place] Glucose [Mass/Vol] 120 mg/dL High 70 - 99 mg/dL [place], [place] Interpretation and review of laboratory results Abnormal [place] Potassium [Moles/Vol] 3.7 mmol/L 3.7 - 5.3 mmol/L [place] Protein [Mass/Vol] 7.1 g/dL 6.4 - 8.3 g/dL [place], [place] Sodium [Moles/Vol] 139 mmol/L 135 - 144 mmol/L [place] Urea nitrogen [Mass/Vol] 10 mg/dL 6 - 20 mg/dL [place] HCG Qualitative, Serumon hCG Qual Negative NEGATIVE [place] Comment on above: Specimens with hCG l evels near the threshold of the test (25 mIU/mL) may give a negative or indeterminate result. In such cases, another test should be performed with a new specimen in 48-72 hours. If early is suspected clinically in this setting, correlation with quantitative serum b-hCG level is suggested. [facility] has confirmed the use of plasma for this test. This has not been cleared or approved by the U.S. Food and Drug Administration. The FDA has determined that such clearance is not necessary. HCG Screen, Bloodon 11-15-19 20 HCG Screen, Blood Negative Normal NEG [facility] Comment on above: Result Comment: Spec imens with hCG levels near the threshold of the test (25 mIU/mL) may give a negative or indeterminate result. In such cases, another test should be performed with a new specimen in 48-72 hours. If early is suspected clinically in this setting, correlation with quantitative serum b-hCG level is suggested. [facility] has confirmed the use of plasma for this test. This has not been cleared or approved by the U.S. Food and Drug Administration. The FDA has determined that such clearance is not necessary. Performed By: #### C BC, CP, HCG #### [facility] [address] [place] [address] [employer]: Arnoldo Soni MD #### PHEP, HIVCMB #### [facility] [address] [place] [address] [employer]: Thang Nielsen MD HIV Ag/Abon 11-15-2019 HIV Ag/Ab Non-Reactive Normal NR [facility] Comment on above: Result Comment: No l aboratory evidence of HIV infection. If acute HIV infection is suspected, consider testing for HIV-1 RNA. Performed By: #### C BC, HCG, CP #### [facility] [address] [place] [address] [place], [place] [phone] [employer]: Josué Monae MD #### HIVCMB, PHEP #### [facility] [address] [place] [address] [employer]: Thang Nielsen MD HIV Screenon 11-15-2019 HIV Ag/Ab NONREACTIVE NONREACTIVE [place] Comment on above: No laboratory eviden ce of HIV infection. If acute HIV infection is suspected, consider testing for HIV-1 RNA. Hepatitis Acute [facility] 11-14 Hep A Ab,IgM Non-Reactive Normal NR [facility] Comment on above: Performed By: #### C BC, CP, HCG #### [address] [place], [place] [phone] [employer]: Arnoldo Soni MD #### PHEP, HIVCMB #### [facility] [address] [place] [address] [employer]: Thang Nielsen MD Hep B Core Ab,IgM Non-Reactive Normal NR [facility] Comment on above: Performed By: #### C BC, CP, HCG #### [address] [place], [place] 1138983 [employer]: Arnoldo Soni MD #### PHEP, HIVCMB #### [facility] [address] [place] [address] [employer]: Thang Nielsen MD Hep B Surf Ag Non-Reactive Normal NR [facility] Comment on above: Performed By: #### C BC, CP, HCG #### [facility] [address] [place], [place] 2449083 [employer]: Arnoldo Soni MD #### PHEP, HIVCMB #### [address] [place], [place] 9917808 [employer]: Thang Nielsen MD Hep C Ab Reactive Abnormal NR [facility] Comment on above: Result Comment: The hepatitis [...] By: #### C CAROL, CP, HCG #### [address] [place] [phone] [employer]: Arnoldo Soni MD #### PHEP, HIVCMB #### [address] [place] [address] [employer]: Thang Nielsen MD Hepatitis Panel, Acuteon HAV IgM IA Qn (S) NONREACTIVE NONREACTIVE [place] Hep B Core Ab, IgM NONREACTIVE NONREACTIVE [place] Hepatitis B Surface Ag NONREACTIVE NONREACTIVE [place] Hepatitis C Ab REACTIVE Abnormal NONREACTIVE [place], [place] Comment on above: The hepatitis C [...] Interpretation and review of laboratory results Abnormal [place] Metabolic Panelon 11-15-2019 GFR/1.73 sq M predicted among non-blacks MDRD (S/P/Bld) [Vol rate/Area] [place] Comment on above: Stage 1: Some [...] body mass. Additional eGFR calculator available at: http://www.[employer]/multiple_crcl_2012.htm *BLOOD CULTUREon 01-02-2019 Bacteria identified Cx Nom (Bld) Clinical Report: (D) Specimen: BLOOD CULTURE Collected: 01/02/2019 09:25 Status: Final Last Updated: 01/07/2019 14:41 (1) Rt bicep CULT RES (Final) No Growth Day 5 Normal [facility] Comment on above: Order Comment: No: D o not add to previous draw Performed By: #### 4 1000, , 30017 #### [facility] [address] Bacteria identified Cx Nom (Bld) Clinical Report: (D) Specimen: BLOOD CULTURE Collected: 01/02/2019 09:25 Status: Final Last Updated: 01/07/2019 14:41 (1) Rt wrist CULT RES (Final) No Growth Day 5 Normal [facility] Comment on above: Order Comment: No: D o not add to previous draw Performed By: #### 4 1000, , 69331 #### [facility] [address] BASIC METABOLIC PANELon 12-08 Calcium [Mass/Vol] 8.7 mg/dL Normal 8.6-10.3 [facility] Comment on above: Order Comment: No: D o not add to previous draw Performed By: #### 4 1000, , 69321 #### [facility] [address] [place] [address], [place] Chloride [Moles/Vol] 110 mmol/L High 98-107 [facility] Comment on above: Order Comment: No: D o not add to previous draw Performed By: #### 4 1000, 63533, 88923 #### [facility] [address] [place] [address], [place] CO2 [Moles/Vol] 23 mmol/L Normal 21-31 The [facility] Comment on above: Order Comment: No: D o not add to previous draw Performed By: #### 4 1000, , 07605 #### [facility] [address] [place] [address], [place] Creatinine [Mass/Vol] 0.52 mg/dL Low 0.60-1.20 [facility] Comment on above: Order Comment: No: D o not add to previous draw Performed By: #### 4 1000, , 00970 #### [facility] [address] [place] [address], [place] GFR/1.73 sq M predicted among blacks MDRD (S/P/Bld) [Vol rate/Area] mL/min/{1.73_m2} Normal >60 [facility] Comment on above: Order Comment: No: D o not add to previous draw Performed By: #### 4 1000, , 28802 #### [facility] [address] [place] [address], [place] GFR/1.73 sq M predicted among non-blacks MDRD (S/P/Bld) [Vol rate/Area] mL/min/{1.73_m2} Normal >60 [facility] Comment on above: Order Comment: No: D o not add to previous draw Performed By: #### 4 1000, , 62437 #### [facility] [address] [place] [address], [place] Glucose [Mass/Vol] 94 mg/dL Normal 70-100 [facility] Comment on above: Order Comment: No: D o not add to previous draw Performed By: #### 4 1000, 79476, 57773 #### [facility] [address] [place] [address], [facility] Potassium [Moles/Vol] 3.8 mmol/L Normal 3.5-5.1 [facility] Comment on above: Order Comment: No: D o not add to previous draw Performed By: #### 4 1000, , 12250 #### [facility] [address] [place] [address], [facility] Sodium [Moles/Vol] 140 mmol/L Normal 136-145 [facility] Comment on above: Order Comment: No: D o not add to previous draw Performed By: #### 4 1000, , 30639 #### [facility] [address] [place] [address], [facility] Urea nitrogen [Mass/Vol] 4 mg/dL Low 7-25 [facility] Comment on above: Order Comment: No: D o not add to previous draw Performed By: #### 4 1000, , 21451 #### [facility] [address] [place] [address], [facility] C REACTIVE PROTEINon 019 CRP [Mass/Vol] 32.9 mg/L High 0.0-7.0 [facility] Comment on above: Order Comment: No: D o not add to previous draw Performed By: #### 4 1000, 11062, 63403 #### [facility] [address] [place] [id number], [facility] CBC COMPLETE BLOOD COUNTon 03-04-2018 Erythrocyte distribution width (RBC) [Ratio] 13.2 % Normal 11.5-15.0 [facility] Comment on above: Order Comment: No: D o not add to previous draw Performed By: #### 5 0608, 24069 #### [facility] [address] [place] [address], [facility] Hematocrit (Bld) [Volume fraction] 34.0 % Low 36.0-45.0 [facility] Comment on above: Order Comment: No: D o not add to previous draw Performed By: #### 5 06, 42345 #### [facility] [address] [place] [id number], [facility] Hemoglobin (Bld) [Mass/Vol] 11.2 g/dL Low 12.0-15.0 [facility] Comment on above: Order Comment: No: D o not add to previous draw Performed By: #### 5 607, 85353 #### [facility] [address] [address], [facility] MCH (RBC) [Entitic mass] 30.9 pg Normal 27.0-33.0 [facility] Comment on above: Order Comment: No: D o not add to previous draw Performed By: #### 5 607, 66412 #### [facility] [address] [place] [address], [facility] MCHC (RBC) [Mass/Vol] 32.9 g/dL Normal 32.0-35.0 [facility] Comment on above: Order Comment: No: D o not add to previous draw Performed By: #### 5 607, 94112 #### [facility] [address] [place] [address], [facility] MCV (RBC) [Entitic vol] 93.7 fL Normal 82.0-98.0 [facility] Comment on above: Order Comment: No: D o not add to previous draw Performed By: #### 5 607, 34945 #### [facility] [address] [place] [address], [facility] Nucleated RBC/100 WBC (Bld) [Ratio] 0 % Normal 0-0 [facility] Comment on above: Order Comment: No: D o not add to previous draw Performed By: #### 5 607, 76120 #### [facility] [address] [place] [address], [facility] PLAT CNT 534 10*3/uL High 150-400 [facility] Comment on above: Order Comment: No: D o not add to previous draw Performed By: #### 5 0608, 57491 #### [facility] [address] [place] [address], [facility] RBC (Bld) [#/Vol] 3.63 10*6/uL Low 3.80-5.00 [facility] Comment on above: Order Comment: No: D o not add to previous draw Performed By: #### 5 0608, 92627 #### [facility] [address] [place] [address], [facility] WBC (Bld) [#/Vol] 7.69 10*3/uL Normal 4.00-10.60 [facility] Comment on above: Order Comment: No: D o not add to previous draw Performed By: #### 5 0608, 35351 #### [facility] [address] [place] [address], [facility] SEDIMENTATION RATEon 1127-2 019 SED RATE 60 mm/hr High 0-20 [facility] Comment on above: Order Comment: No: D o not add to previous draw Performed By: #### 4 1000, 14262, 19569 #### [address] HAND LEFT 3 [facility] 01-01-2019 HAND LEFT 3 [facility] Department of Radiology [address] [place] [id number] Patient Name: MORRIS DURAN : 1985 Sex: F Age: Race: White Pt. Location: [address] [place] [address] Patient Status: D Ordered Date: 01/01/2019 10:40:00 [...] findings. Electronically signed by:Dante Hill. Transcribed by: [email or web address], User Resident: BEAR CHAMPION Electronically Signed by: DANTE HILL @ 01/04/2019 04:45 PM I personally read this/these film(s) with this resident Normal [facility] Comment on above: Order Comment: No: D o not add to previous draw MRI LUMBAR SPINE W WO CONTRA STon 01-01-2019 MRI LUMBAR SPINE W WO CONTRAST [facility] Department of Radiology [address] [place] [id number] Patient Name: MORRIS DURAN : 1985 Sex: F Age: Race: White Pt. Location: [id number] Patient Status: I Ordered Date: 12/31/2018 9:35:00 [...] anteriorly Electronically signed by:Sivan Kimble. Transcribed by: [email or web address], User Resident: Electronically Signed by: SIVAN KIMBLE @ 01/02/2019 10:10 AM Normal [facility] Comment on above: Order Comment: No: D o not add to previous draw URINALYSIS REFLEXon 01-02-20 19 Appearance (U) SL CLOUDY Abnormal CLEAR [facility] Comment on above: Order Comment: No: D o not add to previous draw Criteria for reflexing a culture was not met. Please call the lab at [phone] within 24 hours of collection time if culture is needed Performed By: #### 3 0950 #### [facility] [address] [place] [address], [facility] Bilirubin [Mass/Vol] Negative Normal NEGATIVE [facility] Comment on above: Order Comment: No: D o not add to previous draw Criteria for reflexing a culture was not met. Please call the lab at [phone] within 24 hours of collection time if culture is needed Performed By: #### 3 0962 #### [facility] [address] [place] [address], [place] BLOOD Negative Normal NEGATIVE [facility] Comment on above: Order Comment: No: D o not add to previous draw Criteria for reflexing a culture was not met. Please call the lab at [phone] within 24 hours of collection time if culture is needed Performed By: #### 3 0965 #### [facility] [address] [place] [address], [facility] Color (U) YELLOW Normal YELLOW [facility] Comment on above: Order Comment: No: D o not add to previous draw Criteria for reflexing a culture was not met. Please call the lab at [phone] within 24 hours of collection time if culture is needed Performed By: #### 3 0965 #### [facility] [address] [place] [address], [facility] EPIS MANY Abnormal FEW,OCC,NONE SEEN [facility] Comment on above: Order Comment: No: D o not add to previous draw Criteria for reflexing a culture was not met. Please call the lab at [phone] within 24 hours of collection time if culture is needed Performed By: #### 3 0965 #### [facility] [address] [facility] [place] [place] [address], [facility] Glucose [Mass/Vol] Negative Normal NEGATIVE [facility] Comment on above: Order Comment: No: D o not add to previous draw Criteria for reflexing a culture was not met. Please call the lab at [phone] within 24 hours of collection time if culture is needed Performed By: #### 3 0965 #### [facility] [address] [place] [address], [facility] KETONE 80 mg/dL Abnormal NEGATIVE [facility] Comment on above: Order Comment: No: D o not add to previous draw Criteria for reflexing a culture was not met. Please call the lab at [phone] within 24 hours of collection time if culture is needed Performed By: #### 3 0965 #### [facility] [address] [place] [address], [facility] LEUK MARIANA Negative Normal NEGATIVE [facility] Comment on above: Order Comment: No: D o not add to previous draw Criteria for reflexing a culture was not met. Please call the lab at [phone] within 24 hours of collection time if culture is needed Performed By: #### 3 0965 #### [facility] [address] [facility] [place] [address], [facility] MUCUS THREADS FEW Abnormal NONE SEEN [facility] Comment on above: Order Comment: No: D o not add to previous draw Criteria for reflexing a culture was not met. Please call the lab at [phone] within 24 hours of collection time if culture is needed Performed By: #### 3 0965 #### [facility] [address] [place] [address], [facility] Nitrite Ql (U) Negative Normal NEGATIVE [facility] Comment on above: Order Comment: No: D o not add to previous draw Criteria for reflexing a culture was not met. Please call the lab at [phone] within 24 hours of collection time if culture is needed Performed By: #### 3 0965 #### [facility] [address] [place] [address], [facility] pH (Bld) 5.0 Normal 5.0-8.0 [facility] Comment on above: Order Comment: No: D o not add to previous draw Criteria for reflexing a culture was not met. Please call the lab at [phone] within 24 hours of collection time if culture is needed Performed By: #### 3 0965 #### [facility] [address] [place] [address], [facility] Protein (U) [Mass/Vol] 30 mg/dL Abnormal NEGATIVE [facility] Comment on above: Order Comment: No: D o not add to previous draw Criteria for reflexing a culture was not met. Please call the lab at 7668 within 24 hours of collection time if culture is needed Performed By: #### 3 0965 #### [facility] [address] [place] [address], [facility] RBC (U) [#/Vol] 0-2 Abnormal NONE SEEN The [facility] Comment on above: Order Comment: No: D o not add to previous draw Criteria for reflexing a culture was not met. Please call the lab at [phone] within 24 hours of collection time if culture is needed Performed By: #### 3 0965 #### [facility] [address] SPEC GRAV 1.028 High 1.015-1.020 [facility] Comment on above: Order Comment: No: D o not add to previous draw Criteria for reflexing a culture was not met. Please call the lab at [phone] within 24 hours of collection time if culture is needed Performed By: #### 3 0965 #### [facility] [address] [place] [address], [facility] WBC UA 6-10 Abnormal NONE SEEN [facility] Comment on above: Order Comment: No: D o not add to previous draw Criteria for reflexing a culture was not met. Please call the lab at [phone] within 24 hours of collection time if culture is needed Performed By: #### 3 0965 #### [facility] [address] [facility] [place] [address], [facility] AMMONIA BLOODon 12-31-2018 Ammonia (P) [Mass/Vol] 42 umol/L Normal 16-53 [facility] Comment on above: Order Comment: No: D o not add to previous draw Performed By: #### 2 1408 #### [facility] [address] [facility] BASIC METABOLIC PANELon 12-08 Calcium [Mass/Vol] 8.9 mg/dL Normal 8.6-10.3 [facility] Comment on above: Order Comment: No: D o not add to previous draw Performed By: #### 4 1000, 60079, 90043 #### [facility] [address] [place] [address], [facility] Chloride [Moles/Vol] 108 mmol/L High 98-107 [facility] Comment on above: Order Comment: No: D o not add to previous draw Performed By: #### 4 1000, 53485, 41460 #### [facility] [address] [place] [address], [place] CO2 [Moles/Vol] 23 mmol/L Normal 21-31 The [facility] Comment on above: Order Comment: No: D o not add to previous draw Performed By: #### 4 1000, 45844, 05389 #### [facility] [address] [place] [address], [place] Creatinine [Mass/Vol] 0.54 mg/dL Low 0.60-1.20 [facility] Comment on above: Order Comment: No: D o not add to previous draw Performed By: #### 4 1000, , 79068 #### [facility] [address] [place] [address], [place] GFR/1.73 sq M predicted among blacks MDRD (S/P/Bld) [Vol rate/Area] mL/min/{1.73_m2} Normal >60 [facility] Comment on above: Order Comment: No: D o not add to previous draw Performed By: #### 4 1000, , 56205 #### [facility] [address] [place] [address], [place] GFR/1.73 sq M predicted among non-blacks MDRD (S/P/Bld) [Vol rate/Area] mL/min/{1.73_m2} Normal >60 [facility] Comment on above: Order Comment: No: D o not add to previous draw Performed By: #### 4 1000, , 58648 #### [facility] [address] [place] [address], [place] Glucose [Mass/Vol] 66 mg/dL Low 70-100 [facility] Comment on above: Order Comment: No: D o not add to previous draw Performed By: #### 4 1000, , 00268 #### [facility] [address] [place] [address], [place] Potassium [Moles/Vol] 3.6 mmol/L Normal 3.5-5.1 [facility] Comment on above: Order Comment: No: D o not add to previous draw Performed By: #### 4 1000, 59498, 36167 #### [facility] [address] [place] [address], [facility] Sodium [Moles/Vol] 140 mmol/L Normal 136-145 [facility] Comment on above: Order Comment: No: D o not add to previous draw Performed By: #### 4 1000, 19440, 49711 #### [facility] [address] [place] [address], [facility] Urea nitrogen [Mass/Vol] 8 mg/dL Normal 7-25 [facility] Comment on above: Order Comment: No: D o not add to previous draw Performed By: #### 4 1000, 49891, 39267 #### [facility] [address] [place] [address], [facility] CBC W/DIFFon 12-31-2018 ABS BASOPHILS 0.0 10*3/uL Normal 0.0-0.2 [facility] Comment on above: Order Comment: No: D o not add to previous draw Performed By: #### 5 0103 #### [facility] [address] [facility] [place] [address], [facility] ABS IMM GRANS 0.0 10*3/uL Normal 0.0-0.2 [facility] Comment on above: Order Comment: No: D o not add to previous draw Performed By: #### 5 0103 #### [facility] [address] [place] [address], [facility] ABS NEUTROPHILS 6.8 10*3/uL Normal 1.6-7.6 [facility] Comment on above: Order Comment: No: D o not add to previous draw Performed By: #### 5 0103 #### [facility] [address] [place] [address], [facility] Basophils/100 WBC (Bld) 0.3 % Normal 0.0-1.0 [facility] Comment on above: Order Comment: No: D o not add to previous draw Performed By: #### 5 0103 #### [facility] [address] [place] [address], [facility] Eosinophils (Bld) [#/Vol] 0.3 10*3/uL Normal 0.0-0.5 [facility] Comment on above: Order Comment: No: D o not add to previous draw Performed By: #### 5 0103 #### [facility] [address] [place] [address], [facility] Eosinophils/100 WBC (Bld) 2.9 % Normal 0.0-6.0 [facility] Comment on above: Order Comment: No: D o not add to previous draw Performed By: #### 5 0103 #### [facility] [address] [facility] [place] [address], [facility] Erythrocyte distribution width (RBC) [Ratio] 12.8 % Normal 11.5-15.0 [facility] Comment on above: Order Comment: No: D o not add to previous draw Performed By: #### 5 0103 #### [facility] [address] [facility] [place] [address], [facility] Hematocrit (Bld) [Volume fraction] 33.6 % Low 36.0-45.0 [facility] Comment on above: Order Comment: No: D o not add to previous draw Performed By: #### 5 0103 #### [facility] [address] [facility] [address], [facility] Hemoglobin (Bld) [Mass/Vol] 10.9 g/dL Low 12.0-15.0 [facility] Comment on above: Order Comment: No: D o not add to previous draw Performed By: #### 5 0103 #### [facility] [address] [place] [address], [facility] IMMATURE GRANS 0.4 % Normal 0.0-1.0 [facility] Comment on above: Order Comment: No: D o not add to previous draw Performed By: #### 5 0103 #### [facility] [address] [place] [address], [facility] Lymphocytes (Bld) [#/Vol] 1.9 10*3/uL Normal 1.2-4.0 [facility] Comment on above: Order Comment: No: D o not add to previous draw Performed By: #### 5 0103 #### [facility] [address] [place] [address], [facility] Lymphocytes/100 WBC (Bld) 19.6 % Low 20.0-45.0 [facility] Comment on above: Order Comment: No: D o not add to previous draw Performed By: #### 5 0103 #### [facility] [address] [facility] [place] [address], [facility] MCH (RBC) [Entitic mass] 30.6 pg Normal 27.0-33.0 [facility] Comment on above: Order Comment: No: D o not add to previous draw Performed By: #### 5 0103 #### [facility] [address] [facility] [place] [address], [facility] MCHC (RBC) [Mass/Vol] 32.4 g/dL Normal 32.0-35.0 [facility] Comment on above: Order Comment: No: D o not add to previous draw Performed By: #### 5 0103 #### [facility] [address] [place] [address], [facility] MCV (RBC) [Entitic vol] 94.4 fL Normal 82.0-98.0 [facility] Comment on above: Order Comment: No: D o not add to previous draw Performed By: #### 5 0103 #### [facility] [address] [place] [address], [facility] Monocytes (Bld) [#/Vol] 0.8 10*3/uL Normal 0.1-1.0 [facility] Comment on above: Order Comment: No: D o not add to previous draw Performed By: #### 5 0103 #### [facility] [address] [place] [address], [facility] MONOS 7.9 % Normal 5.0-12.0 [facility] Comment on above: Order Comment: No: D o not add to previous draw Performed By: #### 5 0103 #### [facility] [address] [place] [address], [facility] Neutrophils/100 WBC (Bld) 68.9 % Normal 40.0-72.0 [facility] Comment on above: Order Comment: No: D o not add to previous draw Performed By: #### 5 0103 #### [facility] [address] [place] [address], [facility] Nucleated RBC/100 WBC (Bld) [Ratio] 0 % Normal 0-0 [facility] Comment on above: Order Comment: No: D o not add to previous draw Performed By: #### 5 0103 #### [facility] [address] [place] [address], [facility] PLAT CNT 452 10*3/uL High 150-400 [facility] Comment on above: Order Comment: No: D o not add to previous draw Performed By: #### 5 0103 #### [facility] [address] [place] [id number], [facility] RBC (Bld) [#/Vol] 3.56 10*6/uL Low 3.80-5.00 [facility] Comment on above: Order Comment: No: D o not add to previous draw Performed By: #### 5 0103 #### [facility] [address] [place] [address], [place] WBC (Bld) [#/Vol] 9.82 10*3/uL Normal 4.00-10.60 [facility] Comment on above: Order Comment: No: D o not add to previous draw Performed By: #### 5 0103 #### [facility] [address] [place] [address], [facility] LITHIUMon 12-31-2018 [place] [Moles/Vol] Normal [facility] Comment on above: Order Comment: Yes: Add to Previous draw if able Result Comment: Test Performed by [employer] [address] [place] [address] - Released 12/31/2018 21:21 Result changed by IF on 12/31/2018 21:21. The previous value was Test Performed by [employer] [address] [place] [address] [phone] [place] [Moles/Vol] mmol/L Low 0.6-1.2 [facility] Comment on above: Order Comment: Yes: Add to Previous draw if able LIVER BATTERYon 12-31-2018 Albumin [Mass/Vol] 3.4 g/dL Low 3.5-5.7 [facility] Comment on above: Order Comment: Yes: Add to Previous draw if able Performed By: #### 9 9909 #### [facility] [address] [place] [address], [facility] ALKALINE PHOSPH 66 IU/L Normal 34-104 The [facility] Comment on above: Order Comment: Yes: Add to Previous draw if able Performed By: #### 9 9909 #### [facility] [address] [facility] [place] [address], [facility] ALT [Catalytic activity/Vol] 40 U/L Normal 7-52 [facility] Comment on above: Order Comment: Yes: Add to Previous draw if able Performed By: #### 9 9909 #### [facility] [address] [place] [address], [facility] AST [Catalytic activity/Vol] 41 U/L High 13-39 [facility] Comment on above: Order Comment: Yes: Add to Previous draw if able Performed By: #### 9 9909 #### [facility] [address] [place] [address], [place] Bilirubin [Mass/Vol] 0.4 mg/dL Normal 0.3-1.0 [facility] Comment on above: Order Comment: Yes: Add to Previous draw if able Performed By: #### 9 9909 #### [facility] [address] [place] [address], [place] Bilirubin.direct [Mass/Vol] 0.2 mg/dL Normal 0.0-0.2 [facility] Comment on above: Order Comment: Yes: Add to Previous draw if able Performed By: #### 9 9909 #### [facility] [address] [place] [address], [place] Protein [Mass/Vol] 6.1 g/dL Normal 6.0-8.3 [facility] Comment on above: Order Comment: Yes: Add to Previous draw if able Performed By: #### 9 9909 #### [facility] [address] [place] [address], [facility] MAGNESIUM BLOODon 12-31-2018 Magnesium [Mass/Vol] 2.0 mg/dL Normal 1.9-2.7 [facility] Comment on above: Order Comment: No: D o not add to previous draw Performed By: #### 4 1000, , 01913 #### [facility] [address] [place] [address], [place] PHOSPHORUS BLOODon 9 Phosphate [Mass/Vol] 2.5 mg/dL Normal 2.5-5.0 [facility] Comment on above: Order Comment: No: D o not add to previous draw Performed By: #### 4 1000, 44780, 70859 #### [facility] [address] [place] [address], [place] PROCALCITONINon 12-31-2018 PROCALCITONIN 0.10 ng/mL Normal 0.00-0.10 [facility] Comment on above: Order Comment: No: D [...] PCT<0.5ng/mL Performed By: #### 3 1488 #### [facility] [address] [place], [place] [address] [place] [address] Basic Metabolic Profon 06-10 (cont.) Normal [facility] Comment on above: Result Comment: Aver age GFR for 30-39 years old: 107 mL/min/1.73sq m Chronic Kidney Disease: <60 mL/min/1.73sq m Kidney failure: <15 mL/min/1.73sq m eGFR calculated using average adult body mass. Additional eGFR calculator available at: http://www.[employer]/multiple_crcl_2012.htm Performed By: #### U MAO ROSARIO #### [facility] [address] [place] [address] Anion gap molar conc 12 mmol/L Normal 9-17 [facility] Comment on above: Performed By: #### U MAO ROSARIO #### [facility] [address] [place] [address] Calcium mass conc 9.6 mg/dL Normal 8.6-10.4 [facility] Comment on above: Performed By: #### U MAO ROSARIO #### [facility] [address] [place] [address] Chloride molar conc 104 mmol/L Normal 98-107 [facility] Comment on above: Performed By: #### MAO MASTERS #### [facility] [address] [place] [address] CO2 molar conc 21 mmol/L Normal 20-31 [facility] Comment on above: Performed By: #### MAO MASTERS #### [facility] [address] [place] [address] Creatinine mass conc 0.75 mg/dL Normal 0.50-0.90 [facility] Comment on above: Performed By: #### MAO MASTERS #### [employer] [address] [place] [address] GFR, Amer >60 Normal >60 [facility] Comment on above: Performed By: #### U MAO ROSARIO #### [employer] [address] [place] [address] GFR,non Amer >60 Normal >60 [facility] Comment on above: Performed By: #### U MAO ROSARIO #### [facility] [address] [place] [address] Glucose mass conc 105 mg/dL High 70-99 [facility] Comment on above: Performed By: #### U MAO ROSARIO #### [employer] [address] [place] [address] Potassium molar conc 3.9 mmol/L Normal 3.7-5.3 [facility] Comment on above: Performed By: #### MAO MASTERS #### [facility] [employer] [address] [place] [address]846 Sodium molar conc 137 mmol/L Normal 135-144 [facility] Comment on above: Performed By: #### MAO MASTERS #### [facility] [employer] [address] [place] [address] Urea nitrogen mass conc 12 mg/dL Normal 6-20 [facility] Comment on above: Performed By: #### MAO MASTERS #### [facility] [employer] [address] [place] [address] BUN/CRE Ratio NOT REPORTED Normal - [facility] Comment on above: Performed By: #### MAO MASTERS #### [facility] [employer] [address] [place] [address] Staging: NOT REPORTED Normal [facility] Comment on above: Performed By: #### MAO MASTERS #### [facility] [employer] [address] [place] [address]282 CBC with Diffon 06-10-2018 Abs. Basophil 0.06 k/uL Normal 0.00-0.20 [facility] Comment on above: Performed By: #### MAO MASTERS #### [facility] [employer] [address] [place] [address] Abs.Imm.Granulocyte 0.04 k/uL Normal 0.00-0.30 [facility] Comment on above: Performed By: #### MAO MASTERS #### [facility] [employer] [address] [place] [address] Abs.Neutrophil (Seg) 5.70 k/uL Normal 1.50-8.10 [facility] Comment on above: Performed By: #### U AXMAO #### [facility] [employer] [address] [place] [address]46 Basophils/100 WBC (Bld) 1 % Normal 0-2 [facility] Comment on above: Performed By: #### U AXMAO #### [facility] [employer] [address] [place] [address]39 Eosinophils #/vol (Bld) 0.29 10*3/uL Normal 0.00-0.44 [facility] Comment on above: Performed By: #### U AXMAO #### [facility] [employer] [address] [place] [address] Eosinophils/100 WBC (Bld) 3 % Normal 1-4 [facility] Comment on above: Performed By: #### U MAO ROSARIO #### [facility] [employer] [address] [place] [address] Erythrocyte distribution width Ratio (RBC) 11.9 % Normal 11.8-14.4 [facility] Comment on above: Performed By: #### U AXMAO #### [facility] [employer] [address] [place] [address] 18[address] Hematocrit Volume Fraction (Bld) 42.5 % Normal 36.3-47.1 [facility] Comment on above: Performed By: #### U AXMAO #### [facility] [employer] [address] [place] [address]00 Hemoglobin mass conc (Bld) 14.0 g/dL Normal 11.9-15.1 [facility] Comment on above: Performed By: #### U AXMAO #### [facility] [employer] [address] [place] [address] Immature granulocytes #/vol (Bld) 0 % Normal 0 [facility] Comment on above: Performed By: #### U AXMAO #### [facility] [employer] [address] [place] [address] Lymphocytes #/vol (Bld) 2.41 10*3/uL Normal 1.10-3.70 [facility] Comment on above: Performed By: #### U AXMAO #### [facility] [employer] [address] [place] [address] Lymphocytes/100 WBC (Bld) 26 % Normal 24-43 [facility] Comment on above: Performed By: #### U AXMAO #### [facility] [employer] [employer] [address] [place] [address] 32401 MCH Entitic mass (RBC) 30.8 pg Normal 25.2-33.5 [facility] Comment on above: Performed By: #### U AXMAO #### [facility] [employer] [address] [place] [address] 93886 MCHC mass conc (RBC) 32.9 g/dL Normal 28.4-34.8 [facility] Comment on above: Performed By: #### U AXMAO #### [facility] [employer] [address] [place] [address] 85224 MCV Entitic volume (RBC) 93.4 fL Normal 82.6-102.9 [facility] Comment on above: Performed By: #### U AXMAO #### [facility] [employer] [address] [place] [address] 16376 Monocytes #/vol (Bld) 0.86 10*3/uL Normal 0.10-1.20 [facility] Comment on above: Performed By: #### U AXMAO #### [facility] [employer] [address] [place] [address] 11719 Monocytes/100 WBC (Bld) 9 % Normal 3-12 [facility] Comment on above: Performed By: #### U AXMAO #### [facility] [employer] [address] [place] [address] 74858 Neutrophil (Seg) 61 % Normal 36-65 [facility] Comment on above: Performed By: #### U MAO ROSARIO #### [facility] [employer] [address] [place] [address] 02131 NRBC Automated 0.0 per 100 WBC Normal 0.0 [facility] Comment on above: Performed By: #### U AXMAO #### [facility] [employer] [address] [place] [address] 50398 Platelet mean volume Entitic volume (Bld) 9.9 fL Normal 8.1-13.5 [facility] Comment on above: Performed By: #### U MAO ROSARIO #### [facility] [employer] [address] [place] [address] 59023 Platelets #/vol (Bld) 410 10*3/uL Normal 138-453 [facility] Comment on above: Performed By: #### MAO MASTERS #### [facility] [employer] [address] [place] [address] 99224 RBC #/vol (Bld) 4.55 10*6/uL Normal 3.95-5.11 [facility] Comment on above: Performed By: #### U AXMAO #### [facility] [address] [place] [address] 52936 WBC #/vol (Bld) 9.4 10*3/uL Normal 3.5-11.3 [facility] Comment on above: Performed By: #### U AXMAO #### [facility] [address] [place] [address] 39960 Auto Diff Performed NOT REPORTED Normal [place] Comment on above: Performed By: #### U AXMAO #### [employer] [address] [place] [address] Platelets #/vol (Bld) NOT REPORTED Normal [facility] Comment on above: Performed By: #### U AX, UMICAO #### [employer] [address] [place] [address] RBC morphology finding Nom (Bld) NOT REPORTED Normal [facility] Comment on above: Performed By: #### U AX, UMICAO #### [employer] [address] [place] [address] WBC Morphology NOT REPORTED Normal [facility] Comment on above: Performed By: #### U AX, UMICAO #### [employer] [address] [place] [address] CT ABDOMEN PELVIS WO CONTRAS Ton 06-10-2018 [...] Sean Garcia MD 06/10/18 Final result Normal [facility] HCG Screen, Bloodon 06-11-19 19 HCG Qn Negative Normal NEG [facility] Comment on above: Result Comment: Spec imens with hCG levels near the threshold of the test (25 mIU/mL) may give a negative or indeterminate result. In such cases, another test should be performed with a new specimen in 48-72 hours. If early is suspected clinically in this setting, correlation with quantitative serum b-hCG level is suggested. [employer] has confirmed the use of plasma for this test. This has not been cleared or approved by the [place]. Food and Drug Administration. The FDA has determined that such clearance is not necessary. Performed By: #### U MAO ROSARIO #### [facility] [address] [place] [address] [phone] Cult,Urine,CCon 06-09-2018 Cult,Urine,CC Specimen Description .CLEAN CATCH URINE Special Requests NOT REPORTED Culture NO SIGNIFICANT GROWTH Report Status FINAL 06/09/2018 Normal [facility] Comment on above: Performed By: #### MAO MASTERS #### [employer] [address] [place] [address] [phone] Drug Scr, Abuse, Uron 2018 Amphetamine(s),Ur Positive Abnormal NEG [facility] Comment on above: Result Comment: (Positive cutoff 1000 ng/mL) Performed By: #### U AXMAO #### [employer] [address] [place] [address] [phone] Barbiturate(s),Ur Negative Normal NEG [facility] Comment on above: Result Comment: (Positive cutoff 200 ng/mL) Performed By: #### U AXMAO #### [employer] [address] [place] [address] [phone] Base excess Calculated molar conc (Bld) Negative Normal NEG [facility] Comment on above: Result Comment: (Positive cutoff 300 ng/mL) Performed By: #### U AXMANUELO #### [facility] [address] [place] [address] 91634 Benzodiazepine(s) Negative Normal NEG [facility] Comment on above: Result Comment: (Positive cutoff 200 ng/mL) Performed By: #### U AX UMICAO #### [facility] [address] [place] [address] 63975 Cannabinoid(s),Ur Negative Normal NEG [facility] Comment on above: Result Comment: (Positive cutoff 50 ng/mL) Performed By: #### U AX UMKAUSHIKO #### [facility] [address] [place] [address] 55165 Interpretive Info Assay provides medical screening only. The absence of expected drug(s) and/or Normal [facility] Comment on above: Result Comment: meta bolite(s) may indicate diluted or adulterated urine, limitations of testing or timing of collection. Testing for legal purposes should be confirmed by another method. To request confirmation of test result, please call the lab within 7 days of sample submission. Performed By: #### U AX UMKAUSHIKO #### [facility] [address] [place] [address] 74645 Methadone Ql (U) Negative Normal NEG [facility] Comment on above: Result Comment: (Positive cutoff 300 ng/mL) Performed By: #### U AXMANUELO #### [employer] [address] [place] [address] 43033 Opiate(s), Ur Negative Normal NEG [facility] Comment on above: Result Comment: (Positive cutoff 300 ng/mL) Performed By: #### U AXMANUELO #### [facility] [address] [place] [address] 46155 Oxycodone, Urine Negative Normal NEG [facility] Comment on above: Result Comment: (Positive cutoff 100 ng/mL) Performed By: #### U AXMAO #### [employer] [facility] [place] [address] Phencyclidine, Ur Negative Normal NEG [facility] Comment on above: Result Comment: (Positive cutoff 25 ng/mL) Performed By: #### U AX, UMICAO #### [employer] [address] [place] [address] 62417 Buprenorphrine, Ur NOT REPORTED Normal NEG [facility] Comment on above: Performed By: #### U AX, UMICAO #### [employer] [address] [place] [address] 72079 MDMA, Urine NOT REPORTED Normal NEG [facility] Comment on above: Performed By: #### U AX, UMICAO #### [facility] [address] [place] [address] 20778 Methamphetamine, Ur NOT REPORTED Normal NEG [place] Comment on above: Performed By: #### U AX, UMICAO #### [employer] [address] [place] [address] 46946 Protein mass conc (U) NOT REPORTED Normal NEG [facility] Comment on above: Performed By: #### U AX, UMICAO #### [employer] [address] [place] [address] 26947 Tricyclic antidepressants Screen Ql (U) NOT REPORTED Normal NEG [facility] Comment on above: Performed By: #### U AX, UMICAO #### [employer] [address] [place] [address] 26811 UA w/Reflex Cultureon 2018 Bilirubin.direct mass conc Negative Abnormal NEG [facility] Comment on above: Performed By: #### U AX, UMICAO #### [employer] [address] [place] [address] 94124 Comment Culture ordered based on defined criteria. Normal [facility] Comment on above: Performed By: #### U MAO ROSARIO #### [facility] [address] [place] [address] Acetoacetic Acid,Ur Negative Normal NEG [facility] Comment on above: Performed By: #### U MAO ROSARIO #### [facility] [address] [place] [address] Color Nom (U) DARK YELLOW Abnormal YEL [facility] Comment on above: Performed By: #### U AXMAO #### [facility] [place] [address] Glucose mass conc Negative Normal NEG [facility] Comment on above: Performed By: #### U MAO ROSARIO #### [facility] [address] [place] [address] 67512 Hemoglobin mass conc (Bld) TRACE Abnormal NEG [facility] Comment on above: Performed By: #### MAO MASTERS #### [facility] [address] [place] [address] 35717 Leuckocyte Esterase MODERATE Abnormal NEG [facility] Comment on above: Performed By: #### U MAO ROSARIO #### [facility] [address] [place] [address] Nitrite,Ur Positive Abnormal NEG [facility] Comment on above: Performed By: #### U MAO ROSARIO #### [employer] [address] [place] [address] PH,Ur 5.5 Normal 5.0-8.0 [facility] Comment on above: Performed By: #### U MAO ROSARIO #### [employer] [address] [place] [address] Protein mass conc Negative Normal NEG [facility] Comment on above: Performed By: #### U MAO ROSARIO #### [employer] [facility] [place] [address] Spec. [place],Ur 1.021 Normal 1.005-1.030 [facility] Comment on above: Performed By: #### U AX, UMICAO #### [employer] [address] [place] [address] 10932 Turbidity CLOUDY Abnormal CLEAR [facility] Comment on above: Performed By: #### U AXMANUELO #### [employer] [address] [place] [address] 91069 Urobilinogen,Ur Normal Normal NORM [facility] Comment on above: Performed By: #### U AXMAO #### [facility] [address] [place] [address] 40331 Urinalysis,Microon 9 ----- Normal [facility] Comment on above: Performed By: #### U AXMAO #### [facility] [address] [place] [address] 42646 Bacteria LM.HPF #/area (Urine sed) FEW Abnormal NONE [facility] Comment on above: Performed By: #### U AX, UMICAO #### [facility] [address] [place] [address] 75658 Epithelial cells LM.HPF #/area (Urine sed) 50 TO 100 Normal 0-5 [facility] Comment on above: Performed By: #### U AX UMICAO #### [facility] [address] [place] [address] 99953 Mucus Strands 2+ Abnormal NONE [facility] Comment on above: Performed By: #### U AX, UMICAO #### [employer] [address] [place] [address] 75327 RBC #/vol (U) None Normal 0-2 [facility] Comment on above: Performed By: #### U AX, UMICAO #### [facility] [employer] [address] [place] [address] 36638 WBC #/vol (U) 50 TO 100 Normal 0-5 [facility] Comment on above: Performed By: #### U AX, UMICAO #### [facility] [address] [place] [address] 16714 Amorphous sediment LM Ql (Urine sed) NOT REPORTED Normal NONE [facility] Comment on above: Performed By: #### U AX, UMICAO #### [facility] [employer] [address] [place] [address] 54146 Casts LM.LPF #/area (Urine sed) NOT REPORTED Normal 0-2 [facility] Comment on above: Performed By: #### U AX, UMICAO #### [facility] [employer] [address] [place] [address] 98975 Crystals LM Nom (Urine sed) NOT REPORTED Normal NONE [facility] Comment on above: Performed By: #### U AX, UMICAO #### [facility] [employer] [address] [place] [address] 11349 Epithelial, Renal NOT REPORTED Normal 0 [facility] Comment on above: Performed By: #### U AX, UMICAO #### [facility] [employer] [address] [place] [address] 13005 Other Observations NOT REPORTED Normal NREQ [facility] Comment on above: Performed By: #### U AX, UMICAO #### [facility] [employer] [address] [place] [address] 08171 Trichomonas NOT REPORTED Normal NONE [facility] Comment on above: Performed By: #### U AX, UMICAO #### [facility] [employer] [address] [place] [address] 39331 Yeast LM Ql (Urine sed) NOT REPORTED Normal NONE [facility] Comment on above: Performed By: #### MAO MASTERS #### [facility] [address] [place] [address] 27308 HCG, ,Urineon 06-04 HCG.beta subunit ( test) Ql (U) Negative Normal NEG [facility] Comment on above: Result Comment: Spec imens with hCG levels near the threshold of the test (25 mIU/mL) may give a negative or indeterminate result. In such cases, another test should be performed with a new specimen in 48-72 hours. If early is suspected clinically in this setting, correlation with quantitative serum b-hCG level is suggested. Performed By: #### MAO MASTERS #### [employer] [address] [place] [address] 73820 Urinalysis w/ Microon 2018 ----- Normal [facility] Comment on above: Performed By: #### MAO MASTERS #### [employer] [address] [place] [address] 43632 Crystals LM Nom (Urine sed) CALCIUM OXALATE Abnormal NONE [facility] Comment on above: Result Comment: FEW Performed By: #### MAO MASTERS #### [employer] [address] [place] [address] 62769 Epithelial cells LM.HPF #/area (Urine sed) 0 TO 2 Normal 0-5 [facility] Comment on above: Performed By: #### U MAO ROSARIO #### [employer] [address] [place] [address] 97910 Mucus Strands 1+ Abnormal NONE [facility] Comment on above: Performed By: #### MAO MASTERS #### [employer] [address] [place] [address] 36925 RBC #/vol (U) 0 TO 2 Normal 0-2 [facility] Comment on above: Performed By: #### AMO MASTERS #### [facility] [employer] [address] [place] [address] 28927 WBC #/vol (U) 2 TO 5 Normal 0-5 [facility] Comment on above: Performed By: #### U AX, UMICAO #### [facility] [employer] [address] [place] [address] 72107 Acetoacetic Acid,Ur TRACE Abnormal NEG [facility] Comment on above: Performed By: #### U AX, DEMIICAO #### [facility] [employer] [address] [place] [address] 14024 Bilirubin, SemiQt,Ur Negative Normal NEG [facility] Comment on above: Performed By: #### U AX, DEMIICAO #### [facility] [employer] [address] [place] [address] 97744 Color Nom (U) YELLOW Normal YEL [facility] Comment on above: Performed By: #### U AX, DEMIICAO #### [facility] [employer] [address] [place] [address] 73989 Glucose,Semi-qnt,Ur Negative Normal NEG [facility] Comment on above: Performed By: #### U AX, UMICAO #### [facility] [employer] [address] [place] [address] 26241 Hemoglobin, Ur MODERATE Abnormal NEG [facility] Comment on above: Performed By: #### U AX, DEMIICAO #### [facility] [employer] [address] [place] [address] 49823 Leuckocyte Esterase MODERATE Abnormal NEG [facility] Comment on above: Performed By: #### U AX, UMICAO #### [facility] [employer] [address] [place] [address] 90480 Nitrite,Ur Negative Normal NEG [facility] Comment on above: Performed By: #### U AXDEMIICAO #### [facility] [employer] [address] [place] [address] [place] [address] PH,Ur 5.5 Normal 5.0-8.0 [facility] Comment on above: Performed By: #### U MAO ROSARIO #### [facility] [address] [place] [address] 75441 Protein mass conc (U) TRACE Abnormal NEG [facility] Comment on above: Performed By: #### U MAO ROSARIO #### [facility] [address] [place] [address] 66695 Spec. [place],Ur 1.029 Normal 1.005-1.030 [facility] Comment on above: Performed By: #### U MAO ROSARIO #### [facility] [employer] [address] [place] [address] 91852 Turbidity TURBID Abnormal CLEAR [facility] Comment on above: Performed By: #### U MAO ROSARIO #### [facility] [address] [place] [address] 67589 Urobilinogen,Ur Normal Normal NORM [facility] Comment on above: Performed By: #### U AXMAO #### [facility] [address] [place] [address] 94092 Amorphous sediment LM Ql (Urine sed) NOT REPORTED Normal NONE [facility] Comment on above: Performed By: #### U AXMAO #### [facility] [address] [place] [address] 06068 Bacteria LM.HPF #/area (Urine sed) NOT REPORTED Normal NONE [facility] Comment on above: Performed By: #### U AXMAO #### [facility] [employer] [address] [place] [address] 27228 Casts LM.LPF #/area (Urine sed) NOT REPORTED Normal 0-2 [facility] Comment on above: Performed By: #### U AXMAO #### [facility] [employer] [facility] [place] [address] Epithelial, Renal NOT REPORTED Normal 0 [facility] Comment on above: Performed By: #### U AXMAO #### [facility] [address] [place] [address] 67027 Other Observations NOT REPORTED Normal NREQ [facility] Comment on above: Performed By: #### U MAO ROSARIO #### [facility] [employer] [address] [place] [address] 30098 Trichomonas NOT REPORTED Normal NONE [facility] Comment on above: Performed By: #### U AXMAO #### [facility] [employer] [address] [place] [address] 54060 Yeast LM Ql (Urine sed) NOT REPORTED Normal NONE [facility] Comment on above: Performed By: #### MAO MASTERS #### [facility] [employer] [address] [place] [address] 44812 CBC with Diffon 12-06-2017 Abs. Basophil 0.04 k/uL Normal 0.00-0.20 [facility] Comment on above: Performed By: #### C P, TSH, FT4, CDP, LIPRF #### [facility] [employer] [address] [place] [address] 45620 Abs.Imm.Granulocyte 0.04 k/uL Normal 0.00-0.30 [facility] Comment on above: Performed By: #### C P, TSH, FT4, CDP, LIPRF #### [facility] [employer] [address] [place] [address] 20534 Abs.Neutrophil (Seg) 4.84 k/uL Normal 1.50-8.10 [facility] Comment on above: Performed By: #### C P, TSH, FT4, CDP, LIPRF #### [facility] [employer] [address] [place] [address] 93965 Basophils/100 WBC (Bld) 1 % Normal 0-2 [facility] Comment on above: Performed By: #### C P, TSH, FT4, CDP, LIPRF #### [address] [address] Eosinophils #/vol (Bld) 0.33 10*3/uL Normal 0.00-0.44 [facility] Comment on above: Performed By: #### C P, TSH, FT4, CDP, LIPRF #### [address] [address] Eosinophils/100 WBC (Bld) 4 % Normal 1-4 [facility] Comment on above: Performed By: #### C P, TSH, FT4, CDP, LIPRF #### [address] [address] Erythrocyte distribution width Ratio (RBC) 12.4 % Normal 11.8-14.4 [facility] Comment on above: Performed By: #### C P, TSH, FT4, CDP, LIPRF #### [address] 87779 Hematocrit Volume Fraction (Bld) 41.3 % Normal 36.3-47.1 [facility] Comment on above: Performed By: #### C P, TSH, FT4, CDP, LIPRF #### [address] 18676 Hemoglobin mass conc (Bld) 13.8 g/dL Normal 11.9-15.1 [facility] Comment on above: Performed By: #### C P, TSH, FT4, CDP, LIPRF #### [address] 81818 Immature granulocytes #/vol (Bld) 1 % High 0 [facility] Comment on above: Performed By: #### C P, TSH, FT4, CDP, LIPRF #### [address] [address] Lymphocytes #/vol (Bld) 2.64 10*3/uL Normal 1.10-3.70 [facility] Comment on above: Performed By: #### C P, TSH, FT4, CDP, LIPRF #### [address] 98574 Lymphocytes/100 WBC (Bld) 30 % Normal 24-43 [facility] Comment on above: Performed By: #### C P, TSH, FT4, CDP, LIPRF #### [address] [address]45 MCH Entitic mass (RBC) 31.9 pg Normal 25.2-33.5 [facility] Comment on above: Performed By: #### C P, TSH, FT4, CDP, LIPRF #### [address] 41414 MCHC mass conc (RBC) 33.4 g/dL Normal 28.4-34.8 [facility] Comment on above: Performed By: #### C P, TSH, FT4, CDP, LIPRF #### [address] 53361 MCV Entitic volume (RBC) 95.6 fL Normal 82.6-102.9 [facility] Comment on above: Performed By: #### C P, TSH, FT4, CDP, LIPRF #### [address] 65007 Monocytes #/vol (Bld) 0.90 10*3/uL Normal 0.10-1.20 [facility] Comment on above: Performed By: #### C P, TSH, FT4, CDP, LIPRF #### [address] [address]136 Monocytes/100 WBC (Bld) 10 % Normal 3-12 [facility] Comment on above: Performed By: #### C P, TSH, FT4, CDP, LIPRF #### [address] 62277 Neutrophil (Seg) 54 % Normal 36-65 [facility] Comment on above: Performed By: #### C P, TSH, FT4, CDP, LIPRF #### [address] 94070 NRBC Automated 0.0 per 100 WBC Normal 0.0 [facility] Comment on above: Performed By: #### C P, TSH, FT4, CDP, LIPRF #### [address] [address] Platelet mean volume Entitic volume (Bld) 9.4 fL Normal 8.1-13.5 [facility] Comment on above: Performed By: #### C P, TSH, FT4, CDP, LIPRF #### [address] [address]57 Platelets #/vol (Bld) 374 10*3/uL Normal 138-453 [facility] Comment on above: Performed By: #### C P, TSH, FT4, CDP, LIPRF #### [address] [address] RBC #/vol (Bld) 4.32 10*6/uL Normal 3.95-5.11 [facility] Comment on above: Performed By: #### C P, TSH, FT4, CDP, LIPRF #### [address] 76070 WBC #/vol (Bld) 8.8 10*3/uL Normal 3.5-11.3 [facility] Comment on above: Performed By: #### C P, TSH, FT4, CDP, LIPRF #### [address] [address]80 Auto Diff Performed NOT REPORTED Normal [place] Comment on above: Performed By: #### C P, TSH, FT4, CDP, LIPRF #### [address] [address] Platelets #/vol (Bld) NOT REPORTED Normal [facility] Comment on above: Performed By: #### C P, TSH, FT4, CDP, LIPRF #### [address] [address] RBC morphology finding Nom (Bld) NOT REPORTED Normal [facility] Comment on above: Performed By: #### C P, TSH, FT4, CDP, LIPRF #### [address] [address] WBC Morphology NOT REPORTED Normal [facility] Comment on above: Performed By: #### C P, TSH, FT4, CDP, LIPRF #### [address] [address] Comp Metabolic Profon 2017 (cont.) Normal [facility] Comment on above: Result Comment: Aver age GFR for 30-39 years old: 107 mL/min/1.73sq m Chronic Kidney Disease: <60 mL/min/1.73sq m Kidney failure: <15 mL/min/1.73sq m eGFR calculated using average adult body mass. Additional eGFR calculator available at: http://www.Modelinia.com/multiple_crcl_2012.htm Performed By: #### C P, TSH, FT4, CDP, LIPRF #### [address] [address] Albumin mass conc 4.3 g/dL Normal 3.5-5.2 [facility] Comment on above: Performed By: #### C P, TSH, FT4, CDP, LIPRF #### [address] [address] Albumin/Globulin mass ratio 1.5 {ratio} Normal 1.0-2.5 [facility] Comment on above: Performed By: #### C P, TSH, FT4, CDP, LIPRF #### [address] [address] Alkaline Phos 64 U/L Normal 35-104 [facility] Comment on above: Performed By: #### C P, TSH, FT4, CDP, LIPRF #### [facility] [employer] [address] [place] [address] ALT enzyme act/vol 19 U/L Normal 5-33 [facility] Comment on above: Performed By: #### C P, TSH, FT4, CDP, LIPRF #### [address] [address] Anion gap molar conc 10 mmol/L Normal 9-17 [facility] Comment on above: Performed By: #### C P, TSH, FT4, CDP, LIPRF #### [address] [address] AST enzyme act/vol 15 U/L Normal <32 [facility] Comment on above: Performed By: #### C P, TSH, FT4, CDP, LIPRF #### [facility] [employer] [address] [place] [address] Bilirubin Ql (U) 0.26 mg/dL Low 0.3-1.2 [facility] Comment on above: Performed By: #### C P, TSH, FT4, CDP, LIPRF #### [facility] [employer] [address] [place] [address] Calcium mass conc 9.4 mg/dL Normal 8.6-10.4 [facility] Comment on above: Performed By: #### C P, TSH, FT4, CDP, LIPRF #### [address] [address] Chloride molar conc 105 mmol/L Normal 98-107 [facility] Comment on above: Performed By: #### C P, TSH, FT4, CDP, LIPRF #### [address] [address] CO2 molar conc 25 mmol/L Normal 20-31 [facility] Comment on above: Performed By: #### C P, TSH, FT4, CDP, LIPRF #### [address] [address] Creatinine mass conc 0.79 mg/dL Normal 0.50-0.90 [facility] Comment on above: Performed By: #### C P, TSH, FT4, CDP, LIPRF #### [facility] [employer] [address] [place] [address] GFR, Amer >60 Normal >60 [facility] Comment on above: Performed By: #### C P, TSH, FT4, CDP, LIPRF #### [address] [address] GFR,non Amer >60 Normal >60 [facility] Comment on above: Performed By: #### C P, TSH, FT4, CDP, LIPRF #### [facility] [employer] [address] [place] [address] Glucose mass conc 87 mg/dL Normal 70-99 [facility] Comment on above: Performed By: #### C P, TSH, FT4, CDP, LIPRF #### [address] [address] Potassium molar conc 4.4 mmol/L Normal 3.7-5.3 [facility] Comment on above: Performed By: #### C P, TSH, FT4, CDP, LIPRF #### [facility] [employer] [address] [place] [address] Protein mass conc 7.1 g/dL Normal 6.4-8.3 [facility] Comment on above: Performed By: #### C P, TSH, FT4, CDP, LIPRF #### [facility] [employer] [address] [place] [address] Sodium molar conc 140 mmol/L Normal 135-144 [facility] Comment on above: Performed By: #### C P, TSH, FT4, CDP, LIPRF #### [facility] [employer] [address] [place] [address] Urea nitrogen mass conc 13 mg/dL Normal 6-20 [facility] Comment on above: Performed By: #### C P, TSH, FT4, CDP, LIPRF #### [facility] [employer] [address] [place] [address] BUN/CRE Ratio NOT REPORTED Normal -20 [facility] Comment on above: Performed By: #### C P, TSH, FT4, CDP, LIPRF #### [facility] [employer] [address] [place] [address] Staging: NOT REPORTED Normal [facility] Comment on above: Performed By: #### C P, TSH, FT4, CDP, LIPRF #### [facility] [employer] [address] [place] [address] Lipid Prof, Fastingon 2017 Cholesterol in HDL mass conc 56 mg/dL Normal >40 [facility] Comment on above: Result Comment: HDL Guidelines: <40 Undesirable 40-59 Borderline >59 Desirable Performed By: #### C P, TSH, FT4, CDP, LIPRF #### [address] [address] Cholesterol in LDL mass conc 107 mg/dL Normal 0-130 [facility] Comment on above: Result Comment: LDL Guidelines: <100 Desirable 100-129 Near to/above Desirable 130-159 Borderline >159 Undesirable Direct (measured) LDL and calculated LDL are not interchangeable tests. Performed By: #### C P, TSH, FT4, CDP, LIPRF #### [address] [address] Cholesterol mass conc 179 mg/dL Normal <200 [facility] Comment on above: Result Comment: Cholesterol Guidelines: <200 Desirable 200-240 Borderline >240 Undesirable Performed By: #### C P, TSH, FT4, CDP, LIPRF #### [address] [address] Cholesterol.total/Ch olesterol in HDL mass ratio 3.2 {ratio} Normal <5 [facility] Comment on above: Performed By: #### C P, TSH, FT4, CDP, LIPRF #### [address] [address] Triglyceride,Fasting 82 mg/dL Normal <150 [facility] Comment on above: Result Comment: Triglyceride Guidelines: <150 Desirable 150-199 Borderline 200-499 High >499 Very high Based on AHA Guidelines for fasting triglyceride, November 2011. Performed By: #### C P, TSH, FT4, CDP, LIPRF #### [address] [address] Cholesterol in VLDL mass conc NOT REPORTED Normal 1-30 [facility] Comment on above: Performed By: #### C P, TSH, FT4, CDP, LIPRF #### [address] [address] Thyroid Stim. Horm.on 2017 Thyrotropin Qn 1.71 m[IU]/L Normal 0.30-5.00 [facility] Comment on above: Performed By: #### C P, TSH, FT4, CDP, LIPRF #### [facility] [address] [place] [address] Thyroxine, Freeon 12-06-2017 Thyroxine, Free 1.06 ng/dL Normal 0.93-1.70 [facility] Comment on above: Performed By: #### C P, TSH, FT4, CDP, LIPRF #### [facility] [employer] [address] [place] [address] Cult,Urineon 08-09-2017 Cult,Urine Specimen Description .CLEAN CATCH URINE Special Requests NOT REPORTED Culture ESCHERICHIA COLI >[id number] CFU/ML Report Status FINAL 08/08/2017 SUSCEPTIBILITY Organism [...] Tobramycin 8 INTERMEDIATE Trimethoprim/Sulfa >=320 RESISTANT Piperacillin/Tazobac irchards <=4 SUSCEPTIBLE Normal [facility] Comment on above: Performed By: #### U RC #### [facility] [employer] [address] [place] [address] Urinalysis w/ Microon 2017 ----- Normal [facility] Comment on above: Performed By: #### U AMIC #### [facility] [employer] [address] [place] [address] Acetoacetic Acid,Ur Negative Normal NEG [facility] Comment on above: Performed By: #### U AMIC #### [facility] [employer] [address] [place] [address] Bacteria LM.HPF #/area (Urine sed) MANY Abnormal NONE [facility] Comment on above: Performed By: #### U AMIC #### [address] [address] Bilirubin, SemiQt,Ur Negative Normal NEG [facility] Comment on above: Performed By: #### U AMIC #### [address] [address] Casts LM.LPF #/area (Urine sed) 0 TO 2 HYALINE Normal 0-8 [facility] Comment on above: Result Comment: Refe rence range defined for non-centrifuged specimen. Performed By: #### U AMIC #### [address] [address] Color Nom (U) YELLOW Normal YEL [facility] Comment on above: Performed By: #### U AMIC #### [address] [address] Epithelial cells LM.HPF #/area (Urine sed) 2 TO 5 Normal 0-5 [facility] Comment on above: Performed By: #### U AMIC #### [address] [address] Glucose,Semi-qnt,Ur Negative Normal NEG [facility] Comment on above: Performed By: #### U AMIC #### [address] [address] Hemoglobin, Ur TRACE Abnormal NEG [facility] Comment on above: Performed By: #### U AMIC #### [address] [address] Leuckocyte Esterase LARGE Abnormal NEG [facility] Comment on above: Performed By: #### U AMIC #### [address] [address] Nitrite,Ur Negative Normal NEG [facility] Comment on above: Performed By: #### U AMIC #### [facility] [employer] [address] [place] [address] PH,Ur 5.5 Normal 5.0-8.0 [facility] Comment on above: Performed By: #### U AMIC #### [address] [address] Protein mass conc (U) TRACE Abnormal NEG [facility] Comment on above: Performed By: #### U AMIC #### [facility] [employer] [address] [place] [address] RBC #/vol (U) 5 TO 10 Normal 0-4 [facility] Comment on above: Result Comment: Refe rence range defined for non-centrifuged specimen. Performed By: #### U AMIC #### [address] [address] Spec. [place],Ur 1.017 Normal 1.005-1.030 [facility] Comment on above: Performed By: #### U AMIC #### [address] [address] Turbidity CLOUDY Abnormal CLEAR [facility] Comment on above: Performed By: #### U AMIC #### [facility] [employer] [address] [place] [address] Urobilinogen,Ur Normal Normal NORM [facility] Comment on above: Performed By: #### U AMIC #### [facility] [employer] [address] [place] [address] WBC #/vol (U) TOO NUMEROUS TO COUNT Normal 0-5 [facility] Comment on above: Performed By: #### U AMIC #### [facility] [employer] [address] [place] [address] Amorphous sediment LM Ql (Urine sed) NOT REPORTED Normal NONE [facility] Comment on above: Performed By: #### U AMIC #### [address] [address] Crystals LM Nom (Urine sed) NOT REPORTED Normal NONE [facility] Comment on above: Performed By: #### U AMIC #### [address] [address] Epithelial, Renal NOT REPORTED Normal 0 [facility] Comment on above: Performed By: #### U AMIC #### [address] [address] Mucus Strands NOT REPORTED Normal NONE [facility] Comment on above: Performed By: #### U AMIC #### [address] [address] Other Observations NOT REPORTED Normal NREQ [facility] Comment on above: Performed By: #### U AMIC #### [address] [address] Trichomonas NOT REPORTED Normal NONE [facility] Comment on above: Performed By: #### U AMIC #### [address] [address] Yeast LM Ql (Urine sed) NOT REPORTED Normal NONE [facility] Comment on above: Performed By: #### U AMIC #### [address] [address] Cult,Urineon 08-04-2017 Cult,Urine Specimen Description .URINE Special Requests NOT REPORTED Culture ESCHERICHIA COLI >[id number] CFU/ML Report Status FINAL 08/04/2017 SUSCEPTIBILITY Organism [...] >=320 RESISTANT Piperacillin/Tazobac richards <=4 SUSCEPTIBLE Normal [facility] Comment on above: Performed By: #### U RC #### [facility] [employer] [address] [place] [address] UA w/Reflex Cultureon 2017 Acetoacetic Acid,Ur TRACE Abnormal NEG [facility] Comment on above: Performed By: #### U AX, UMICAO #### [facility] [employer] [address] [place] [address] Bilirubin.direct mass conc Negative Normal NEG [facility] Comment on above: Performed By: #### U AX, UMICAO #### [facility] [employer] [address] [place] [address] Color Nom (U) YELLOW Normal YEL [facility] Comment on above: Performed By: #### U AX, UMICAO #### [facility] [employer] [address] [place] [address] Glucose mass conc Negative Normal NEG [facility] Comment on above: Performed By: #### U AX, UMICAO #### [facility] [employer] [address] [place] [address] Hemoglobin mass conc (Bld) TRACE Abnormal NEG [facility] Comment on above: Performed By: #### U AX, UMICAO #### [facility] [employer] [address] [place] [address] Leuckocyte Esterase MODERATE Abnormal NEG [facility] Comment on above: Performed By: #### U AX, UMICAO #### [facility] [employer] [address] [place] [address] Nitrite,Ur Negative Normal NEG [facility] Comment on above: Performed By: #### U AX, UMICAO #### [facility] [place] [address] PH,Ur 5.0 Normal 5.0-8.0 [facility] Comment on above: Performed By: #### U AX, UMICAO #### [facility] [address] [place] [address] Protein mass conc TRACE Abnormal NEG [facility] Comment on above: Performed By: #### U AX, UMICAO #### [facility] [address] [place] [address] Spec. [place],Ur 1.024 Normal 1.005-1.030 [facility] Comment on above: Performed By: #### U AX, UMICAO #### [facility] [address] [place] [address] Turbidity CLOUDY Abnormal CLEAR [facility] Comment on above: Performed By: #### U AX, UMICAO #### [facility] [address] [place] [address] Urobilinogen,Ur Normal Normal NORM [facility] Comment on above: Performed By: #### U AX, UMICAO #### [facility] [address] [place] [address] Comment NOT REPORTED Normal [facility] Comment on above: Performed By: #### U AX, UMICAO #### [facility] [address] [place] [address] Urinalysis,Microon 8 ----- Normal [facility] Comment on above: Performed By: #### U AX, UMICAO #### [facility] [address] [place] [address] Bacteria LM.HPF #/area (Urine sed) MANY Abnormal NONE [facility] Comment on above: Performed By: #### U AX, UMICAO #### [facility] [address] [place] [address] Casts LM.LPF #/area (Urine sed) 10 TO 20 HYALINE Normal 0-8 [facility] Comment on above: Result Comment: Refe rence range defined for non-centrifuged specimen. Performed By: #### U AX, UMICAO #### [facility] [address] [place] [address] Epithelial cells LM.HPF #/area (Urine sed) 2 TO 5 Normal 0-5 [facility] Comment on above: Performed By: #### U AX, UMICAO #### [facility] [address] [place] [address] RBC #/vol (U) 10 TO 20 Normal 0-4 [facility] Comment on above: Result Comment: Refe rence range defined for non-centrifuged specimen. Performed By: #### U AX, UMICAO #### [facility] [address] [place] [address] WBC #/vol (U) TOO NUMEROUS TO COUNT Normal 0-5 [facility] Comment on above: Performed By: #### U AX, UMICAO #### [facility] [address] [place] [address] Amorphous sediment LM Ql (Urine sed) NOT REPORTED Normal NONE [facility] Comment on above: Performed By: #### U AX, UMICAO #### [facility] [address] [place] [address] Crystals LM Nom (Urine sed) NOT REPORTED Normal NONE [facility] Comment on above: Performed By: #### U AX, UMICAO #### [employer] [address] [place] [address] Epithelial, Renal NOT REPORTED Normal 0 [facility] Comment on above: Performed By: #### U AX, UMICAO #### [facility] [address] [place] [address] Mucus Strands NOT REPORTED Normal NONE [facility] Comment on above: Performed By: #### U AX, UMICAO #### [facility] [address] [place] [address] Other Observations NOT REPORTED Normal NREQ [facility] Comment on above: Performed By: #### U AX, UMICAO #### [facility] [address] [place] [address] Trichomonas NOT REPORTED Normal NONE [facility] Comment on above: Performed By: #### U AX, UMICAO #### [employer] [address] [place] [address] Yeast LM Ql (Urine sed) NOT REPORTED Normal NONE [facility] Comment on above: Performed By: #### U AX, UMICAO #### [employer] [address] [place] [address] Encounters Encounter Date Encounter Type Care Provider Facility Start: 04-24-2024 ambulatory Jaylen Mac acility:[facility] Start: 08-13-2021 End: 08-14-[address] DOCTOR REYNAGA Facility:[facility] Start: 10-14-2020 End: 10-15-2020 ambulatory ARLENE GARRETT Facility:[facility] Start: 09-03-2020 End: 09-04-2020 ambulatory [facility] Start: 09-03-2020 End: 09-03-2020 Subsequent hospital visit by physician [facility] Start: 11-29-2019 End: 11-30-2019 ambulatory [facility] Start: 11-29-2019 End: 11-29-2019 Subsequent hospital visit by physician [facility] Start: 11-15-2019 End: 11-16-2019 ambulatory [facility] Start: 11-15-2019 End: 11-15-2019 Subsequent hospital visit by physician [facility] Start: 11-14-2019 End: 11-15-2019 [facility] Start: 11-14-2019 End: 11-14-2019 Subsequent hospital visit by physician [facility] Start: 12-30-2018 End: 01-02-2019 Evaluation and management of inpatient IRISH WOODSON Facility:[facility] Start: 06-10-2018 End: 06-11-2018 Emergency department patient visit JOSUÉ HECTOR [facility] Start: 06-08-2018 End: 06-08-2018 Emergency department patient visit OLIVER MCCREA [facility] Start: 06-04-2018 End: 06-04-2018 Emergency department patient visit BALJEETAMALIA LIVINGSTON [facility] Start: 03-21-2018 End: 03-21-2018 Emergency department patient visit ERVIN [facility] Start: 12-06-2017 End: 12-07-2017 Patient encounter procedure KI PALAFOX [facility] Start: 08-07-2017 End: 08-07-2017 Emergency department patient visit ERVIN [facility] Start: 08-03-2017 End: 08-03-2017 Emergency department patient visit BIRNEY Zoë [facility] Procedures Date Procedure Procedure Detail Performing Clinician Start: 09-03-2020 Antibody hiv-1&hiv-2 single result Channing Yin [employer]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: Start: 09-03-2020 Comprehensive metabo lic panel Channing Yin [employer]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: Start: 11-15-2019 Antibody hiv-1&hiv-2 single [...] 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 CHANNING YIN Start: 06-10-2018 Ct abdomen & [...] 10-07-2020 Influenza vaccination Flu vaccine (# 1) [employer] Work Phone: Start: 10-08-2019 Influenza vaccination Flu vaccine (# 1) [place], [place] Start: 2005 Screening for malign ant neoplasm of cervix Cervical cancer screen [place], [place] Start: 06-22-2003 DTaP/Tdap/Td vaccine (1 - Tdap) DTaP/Tdap/Td vaccine (1 - Tdap) [place] Start: 06-22-1999 HIV screening HIV screen [facility] [place], [place] Start: 1996 COVID-19 Vaccine (1) COVID-19 Vaccin e (1) [facility] [employer] Phone: Start: 1990 Pneumococcal 0-64 ye ars Vaccine (1 of 1 - PPSV23) Pneumococcal 0-64 years Vaccine (1 of 1 - PPSV23) [place], [place] Start: 1990 Pneumococcal 0-64 ye ars Vaccine (1 of 2 - PPSV23) Pneumococcal 0-64 years Vaccine (1 of 2 - PPSV23) [facility] [employer] Phone: Start: 1985 Varicella vaccine (1 of 2 - 2-dose childhood series) Varicella vaccine (1 of 2 - 2-dose childhood series) [place], [place] End: 11-15-2019 Hepatitis C RNA, quantitative, PCR Hepatitis C RNA, quantitative, PCR Lab Routine Once for 1 Occurrences starting 11/15/2019 until 11/15/2019 [place] Comment on above: Once for 1 Occurrenc es starting 11/15/2019 until 11/15/2019 Hepatitis C RNA, quantitative, PCR Hepatitis C RNA, quantitative, PCR Lab Routine 11/15/2019 4:51 AM EDT [place], [place] Payers Date Payer Category Payer Self-pay 1984 Unknown [id number] 2.16.8 [id number] 1984 Unknown [id number] 2.16.8 [id number] 1984 Unknown [id number] 2.16.8 [id number] 1984 Unknown [id number] 2.16.8 [id number] 1984 Unknown [id number] 2.16.8 [id number] 1984 Unknown [id number] 2.16.8 [id number] 1984 Unknown [id number] 2.16.8 [id number] 1984 Unknown [id number] 2.16.8 [id number] 1984 Unknown [id number] 2.16.8 [id number] 1984 Unknown [id number] 2.16.8 [id number] 1984 Unknown [id number] 2.16.8 [id number] 1984 Unknown [id number] 2.16.8 [id number] 1984 Unknown [id number] 2.16.84 [id number] 1984 Unknown [id number] 2.16.84 [id number] 1959 Unknown [id number] Unknown [id number] 2.16.8 [id number] Social History Date Type Detail Facility Start: [facility]10[facility] [place] History of tobacco use Cigarette Smoker [place] Start: 06-10-2018 Cigarettes smoked current (pack per day) - Reported [place] Start: 06-10-2018 Tobacco use and exposure Never used [place] Start: 06-10-2018 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) [place], [place] Start: 1985 Sex Assigned At Not on file [place], [place] Clinical Note 10-15-2020 Note Date & [...] CLARIBEL DE LA GARZA Date: 2020-10-15 00:07 [facility] Summary Purpose Family History No Family History Records FoundNo Family History Records FoundNo Family History Records FoundNo Family History Records FoundNo Family History Records FoundNo Family History Records Found Advance Directives No Advanced Directives Records FoundDocuments on File Type Date 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 Name: Morris Duran Admitted: 12/30/2018 Discharged: [...] use, chronic low back pain, admitted to [facility], who was transferred from [facility] secondary to low back pain for last 2 weeks. She had abdominal and pelvis CT done, it was unremarkable except left ovarian cyst. Psychiatry was consulted secondary to hallucinations. The patient was using IV methamphetamine due t (more content not included)... Additional Source Comments INFORMATION SOURCE (unrecogn ized section and content) DATE CREATED AUTHOR 06/27/2018 [facility] DATE CREATED AUTHOR AUTHOR'S ORGANIZ ATION 02/16/2019 [facility] DATE CREATED AUTHOR AUTHOR'S ORGANIZ ATION 04/14/2020 [facility] DATE CREATED AUTHOR AUTHOR'S ORGANIZ ATION 09/04/2020 [facility] DATE CREATED AUTHOR AUTHOR'S ORGANIZ ATION 08/24/2021 [facility] DATE CREATED AUTHOR AUTHOR'S ORGANIZ ATION 04/27/[address] [facility] FOR RECORDS PERTAINING TO PATIENTS [...] BE BASED ON THE PRIMARY CLINICAL RECORDS. [facility] [employer] provides no warranty or guarantee of the accuracy or completeness of information in this document.
--- NOTE | 2024-06-24 20:01 | ED.GENADUL1 ---
HPI HPI - General Adult General Chief complaint: Upper Respiratory Infection Stated complaint: cough, congestion Time Seen by Provider: 06/24/24 19:55 Source: patient Mode of arrival: walk-in Limitations: no limitations History of Present Illness HPI narrative: 39-year-old female presents to the emergency department for a cough. She has had it for 2 weeks and she is coughing up yellow phlegm. She is a smoker. She missed work today and is requesting a work note. No vomiting or diarrhea or hemoptysis or known fever Related Data Home Medications ?Medication ?Instructions ?Recorded ?Confirmed lamotrigine 25 mg tablet 50 mg PO QDAY 05/22/24 06/24/24 venlafaxine 37.5 mg 37.5 mg PO QDAY 05/22/24 06/24/24 capsule,extended release 24 hr Previous Rx's ?Medication ?Instructions ?Recorded benzonatate 100 mg capsule 100 mg PO TID PRN cough #20 caps 06/24/24 doxycycline hyclate 100 mg capsule 100 mg PO BID 10 days #20 caps 06/24/24 Allergies Allergy/AdvReac Type Severity Reaction Status Date / Time cefaclor (From Ceclor) Allergy Severe Unknown Verified 06/24/24 19:54 duloxetine (From Cymbalta) Allergy Severe Unknown Verified 06/24/24 19:54 Opioid HPI Opioid Management Most Recent Opioid Data: Ur Phencyclidine Scrn, (NEGATIVE) Negative 08/10/23, 15:50 Review of Systems ROS Narrative A ten point review of systems is negative except as noted above. PFSH PFSH Social History Little interest or pleasure in doing things: not at all Feeling down, depressed, or hopeless: not at all Exam Narrative Exam Narrative: Nurses note and vital signs reviewed and patient is not hypoxic. General: The patient appears well and in no apparent distress. Patient is resting comfortably on cart. Skin: Warm, dry, no pallor noted. There is no rash noted. Head: Normocephalic, atraumatic Eye: Normal conjunctiva, no drainage Ears, Nose, Mouth, and Throat: oral mucosa is moist. Nares patent. No pharyngeal erythema. Cardiovascular: Regular Rate and Rhythm Respiratory: Patient is in no distress, no accessory muscle use, lungs are clear to auscultation, no wheezing, rales or rhonchi. Good air movement present Back: non-tender GI: Soft and nontender Musculoskeletal: The patient has no evidence of calf tenderness, no pitting edema, symmetrical pulses noted bilaterally Neurological: A&O, normal speech Psychiatric: Cooperative Constitutional Vital Signs, click to edit/add: Last Vital Signs Temp 98.0 F 06/24/24 19:51 Pulse 95 H 06/24/24 19:51 Resp 16 06/24/24 19:51 BP 130/88 06/24/24 19:51 Pulse Ox 98 06/24/24 19:51 O2 Del Method Room Air 06/24/24 19:51 Course Vital Signs Vital signs: Vital Signs Temperature 98.0 F 06/24/24 19:51 Pulse Rate 95 H 06/24/24 19:51 Respiratory Rate 16 06/24/24 19:51 Blood Pressure 130/88 06/24/24 19:51 Pulse Oximetry 98 06/24/24 19:51 Oxygen Delivery Method Room Air 06/24/24 19:51 Temperature 98.0 F 06/24/24 19:51 Pulse Rate 95 H 06/24/24 19:51 Respiratory Rate 16 06/24/24 19:51 Blood Pressure 130/88 06/24/24 19:51 Pulse Oximetry 98 06/24/24 19:51 Oxygen Delivery Method Room Air 06/24/24 19:51 Medical Decision Making [facility] Narrative Medical decision making narrative: My clinical impression is that she has an upper respiratory infection. She is prescribed doxycycline and Tessalon and was given a work note. Treatment diagnosis and follow-up were discussed with the patient. Clinically I do not suspect pneumonia, COVID, or influenza. Differential Diagnosis Differential Diagnosis: Upper respiratory infection, pneumonia, COVID, influenza Discharge Plan Discharge Chief Complaint: Upper Respiratory Infection Clinical Impression: Acute upper respiratory infection Patient Disposition: Home, Self-Care Time of Disposition Decision: 20:00 Condition: Good Mode of Transportation: Private Vehicle Prescriptions / Home Meds: New doxycycline hyclate 100 mg capsule 100 mg PO BID 10 Days Qty: 20 0RF benzonatate 100 mg capsule 100 mg PO TID PRN (Reason: cough) Qty: 20 0RF No Action lamotrigine 25 mg tablet 50 mg PO QDAY venlafaxine 37.5 mg capsule,extended release 24hr 37.5 mg PO QDAY Print Language: Maltese Instructions: Upper Respiratory Infection (ED) Referrals: Physician,Non-Staff, MD [Primary Care Provider] - 1 week
[2024-06-24] MEDS: DOXYCYCLINE MONOHYDRATE 100 MG CAPSULE PO (20:10)
[2024-06-24] MEDS: BENZONATATE 100 MG CAPSULE 200 MG PO (20:10)
== END 2024-06-24 20:13 | disposition home or self-care (01) ==
PROVIDERS: Emergency Provider Emergency Medicine
DX: J06.9 Acute upper respiratory infection, unspecified (principal); F17.200 Nicotine dependence, unspecified, uncomplicated
CPT/HCPCS: 99283

== ENCOUNTER 2024-09-12 21:18 | Emergency (ER) | payer OTHER, BC, SELFPAY ==
--- OUTSIDE RECORDS SUMMARY | 2019-11-06 20:22 | XMS_ITS | Continuity of Care Document ---
Author Organization [facility] Address [address] [place] [address] Phone Care Team Providers Care Operations Processor Name Role Phone Pavlock DO, Max Unavailable Unavailable Allergies, Adverse Reactions, Alerts Substance Reaction Status Criticality DULOXETINE HCL Active No Informatio n cefaclor Active No Information Medications Medication Instructions Dosage Effective Dates (start - stop) Status Comments ropinirole 1 mg tablet 1mg PO TID PRN restless legs as needed - Active melatonin 10 mg tablet 10mg 1 tablet PO QHS as needed - Active Give between 6pm and 11pm. Do not give after 11pm methocarbamol 750 mg tablet 750MG PO Q6H PRN chronic pain and muscle spasms as needed - Active omeprazole 20 mg capsule,delayed release 1 tablet by mouth daily as needed No Longer Active dicyclomine 20 mg tablet 20mg PO Q6H PRN abdominal cramping as needed No Longer Active Imodium A-D 2 mg capsule 2mg PO PRN after each loose stool as needed No Longer Active Do not exceed 16mg in 24 hours magnesium citrate (bulk) powder 1 bottle 12 hours after second Milk of Magnesia with continued constipation as needed No Longer Active Colace 100 mg capsule 100mg PO BID PRN constipation as needed No Longer Active calcium carbonate (bulk) powder 10mL PO TID PRN heartburn/indigest ion as needed No Longer Active Tums 200 mg calcium (500 mg) chewable tablet 1-2 tablets PO TID PRN heartburn/digestio n as needed No Longer Active ibuprofen 600 mg tablet 600mg PO Q6H PRN pain as needed No Longer Active Acetaminophen Extra Strength 500 mg tablet 1000mg PO Q4H PRN pin or temperature >99 F as needed No Longer Active Do not exceed 4000mg in a 24 hour period. promethazine 25 mg tablet 25mg PO Q8H PRN nausea and vomiting as needed No Longer Active Zofran 8 mg tablet 8mg PO Q6H PRN nausea and vomiting as needed No Longer Active promethazine 25 mg/mL injection solution 25mg IM Q8H PRN nausea and vomiting as needed No Longer Active if unable to tolerate PO hydroxyzine pamoate 50 mg capsule 50mg PO Q6H PRN anxiety as needed No Longer Active doxepin 25 mg capsule 25mg PO QHS PRN insomnia as needed No Longer Active Do not combine with other sleep aids. trazodone 50 mg tablet 50mg PO QHS PRN insomnia as needed No Longer Active cyclobenzaprine 10 mg tablet 10mg PO Q6H PRN pain and muscle spasms as needed No Longer Active Procedures Procedure Date Acute Detox Public Health Policy Analyst Acute Detox Public Health Policy Analyst Acute Detox Public Health Policy Analyst DRUG TEST PRSMV DIR OPT OBS URINE TEST Acute Detox Public Health Policy Analyst Advance Directives Directive Yes / No Effective Date File Name No Information Encounters Encounter Description Practice Location Reason(s) For Visit Diagnoses Date Provider Providers Copied on Encounter [facility], [address] [place] [address], [id number] , [place] tel:[phone] [facility] Detox Opioid dependence with withdrawal 0 Pavlock DO Max. [address], [place], [id number] , [place]. tel: [phone] [facility], [address], [place], [id number] , [place] tel: [phone] [facility] Detox Opioid dependence with withdrawal Sep-3 0 0 Pavlock DO Max. [address], [place], [id number] , [place]. tel: [phone] [facility], [address], [place], [id number] , [place] tel: [phone] [facility] Detox heroin dependence (chief complaint) Opioid dependence with withdrawal Sep-2 0 Francisco Javier [address]. [address], [place], [id number] , [place]. tel: [phone] [facility], [address], [place], [id number] , [place] tel: [phone] [facility] Detox Opioid dependence with withdrawal Sep-2 0 Pavlock DO Max. [address], [place], [id number] , [place]. tel: [phone] [facility], [address], [place], [id number] , [place] tel: [phone] [facility] Detox Opioid dependence with withdrawal Sep-2 0 Pavlock DO Max. [address], [place], [id number] , [place]. tel: [phone] [facility], [address] [place] [address], [id number] , [place] tel: [phone] [facility] Detox Opioid dependence with withdrawalEncounter for test, result negative Sep-2 0 Pavlock DO Max. [address], [place], [id number] , [place]. tel: [phone] Family History Family Member Type Diagnosis Age At Onset No Information Payers Payer name Insurance type Covered democrat ID Jennifer rivas(s) [employer] Medicaid [place] [id number] Social History Type Description Quantity Date Captured Comments Alcohol Use Details Unknown Caffeine Use Details Unknown Tobacco Use Status No Information Smoking Status No Information Sex Female Sexual Orientation Straight or heterosexual Gender Identity Female Vital Signs Date / Time: Height Weight BMI Pulse Rate Blood Pressure Temperature Respiratory Rate Body Surface Area Head Circumference Head Circ. Percentile Wt./Hang. Percentile BMI percentile Pulse Ox Inhaled Ox 9:39 AM 73 /min 126/91 mm[Hg] 98.00 F 100 % Chief Complaint And Reason For Visit No Information Reason For Referral Reason For Referral No Information History Of Present Illness Encounter Date Complaint History Of Prese nt Illness heroin dependence 34 year old fe male checked in to detox yesterday and reports last using heroin 2 days ago. She typically snorts 1/2g/day and has been using opiates for 13 years. She has attended detox 4 times prior with the last being 2018.surgical hx- noneallergies- ceclor, cymbaltameds- lithium, effexor, not heretobacco- 1 ppdalcohol- noneplans upon completing detox- vivitrol Functional Status Date Functional Assessmen t No Information Instructions Date Instruction Additional Infor mation No Information Assessments Type Assessment Date assessment Opioid dependence with withdrawa l Mental Status Date Cognitive Assessment Orientation - [place] ed to time, place, person, situation.Normal Orientation Patient Care Teams Name Effective Dates (start - stop) Status Members No Information
[2024-09-12 21:27] VITALS: BP 160/100; PULSE 91; TEMP 36.6; O2SAT 100; BMI 43.3
--- OUTSIDE RECORDS SUMMARY | 2024-09-12 21:35 | XMS_ITS | CCD ---
Author Organization [facility] Inform ion Partnership [facility] Care Team Providers Care Manager Social Responsibility Name Role Phone PAVLOCK, MAX L Primary [...] Primary Care Unavailable ARLENE GARRETT Admitting Unavailable AJITH DE LA GARZA Consulting Unavailable MISC, DR REYES Attending Unavailable MISC, DR REYES Consulting Unavailable BILL LOPEZ Primary Care Unavailable MISC, DR REYES Admitting Unavailable NONE, XXXX Primary Care Physician Unavailab Silvestre Bajwa Attending Unavailable Nirmala Moser Attending Unavailable Silvestre Barton Attending Unavailable Jaylen Jean Attending Unavailab Jaylen Christensen Admitting Unavailab rosemarie LUNA FAMILY, PHYSICIAN Primary Care Unavailable Allergies Allergy Classification Reported Allergen(s) Allergy Type Date of Onset Reaction(s) Facility Cephalosporins (antibiotic) (1 source) Cefaclor Drug Allergy 08-03-2017 [facility] DULoxetine (1 source) DULoxetine Drug Allergy 08-03-2017 [facility] (2 sources) Acetaminophen / HYDROcodone Drug Allergy 11-10-[address] [facility] Rep[facility] (3 sources) Cefaclor; Translations: [Ceclor] Drug Allergy 11-10-[address] [facility] (3 sources) DULoxetine; Translations: [Cymbalta] Drug Allergy 11-10-2012 [facility] Repository (5 sources) Cefaclor; Translations: [cefaclor] Drug Allergy 08-03-2017 numbness [place], [place] (3 sources) DULoxetine Drug Allergy 08-03-2017 [place] (2 sources) DULoxetine; Translations: [duloxetine] Drug Allergy [facility] Medications Current Medications Medication Drug Class(es) Dates [...] Take 300 mg by mouth 0 Active cloNIDine hydrochloride 0.1 mg oral tablet (2 sources) Central alpha-2 Adrenergic Agonist Start: 04-09-2020 take 1 mg by mouth twice daily cloNIDine 0.1 mg tab mg tab(s), Oral, BID, Refills(s) 0 Start Date: 04/09/20 Status: Ordered Repeat number: 1 doxycycline hyclate 100 mg oral tablet (1 source) Tetracycline-class Drug Start: 07-29-2024 End: 08-08-2024 take 1 tablet by mouth every twelve hours doxycycline hyclate 100 mg Tab 100 mg = 1 tab(s), Oral, q12hr, X 10 day(s), # 20 tab(s), Refills(s) 0, Pharmacy: [facility]/pharmacy #[id number], 165, cm, 07/29/24 19:32:00 EDT, Height/Length Dosing, 123.4, kg, 07/29/24 19:32:00 EDT, Weight Dosing Start Date: 07/29/24 Stop Date: 08/08/24 Status: Ordered Quantity: 20.0 Unit: tab(s) Repeat number: 1 hydrOXYzine hydrochloride 25 mg oral tablet (2 sources) Antihistamine Start: 10-17-2018 take 1 tablet by mouth once daily hydrOXYzine hydrochloride 25 mg Tab 25 mg = 1 tab(s), Oral, Daily, # 30 tab(s), Refills(s) 0 Start Date: 10/17/18 Status: Ordered Quantity: 30.0 Unit: tab(s) Repeat number: 1 ibuprofen 800 mg oral tablet (8 sources) [...] for Nausea 20 tablet 0 03/21/2018 Active sulfamethoxazole 800 mg / trimethoprim 160 mg oral tablet (2 sources) Dihydrofolate Reductase Inhibitor Antibacterial, Sulfonamide Antimicrobial Start: 07-26-2024 End: 08-02-2024 Bactrim D.S. 800 mg-160 mg Tab 1 tab(s), Oral, BID for 7 day(s), 14 tab(s), Refill(s) 0, [facility]/pharmacy #[id number], 162, cm, 07/26/24 22:50:00 EDT, Height/Length Dosing, 124.7, kg, 07/26/24 22:50:00 EDT, Weight Dosing Start Date: 6/20/25 Stop Date: 08/02/24 Status: Ordered Quantity: 14.0 Unit: tab(s) Repeat number: 1 Trazodone (2 sources) Serotonin Reuptake Inhibitor Start: 04-09-2020 trazodone Oral, BID, Refills(s) 0 Start Date: 04/09/20 Status: Ordered Repeat number: 1 24 hr venlafaxine 37.5 mg extended release oral capsule (4 sources) Serotonin and Norepinephrine Reuptake Inhibitor Start: 10-17-2018 Effexor XR 37.5 mg Cap-ER 37.5 mg = 1 cap(s), Oral, Daily, to be taken with the 150, Refills(s) 0 Start Date: 10/17/18 Status: Ordered Repeat number: 1 Start: 10-17-2018 take 5 capsules by m margariotirene once daily Effexor XR 150 mg Cap-ER 150 mg = 1 cap(s), Oral, Daily, To be taken with 37. 5, Refills(s) 0 Start Date: 10/17/18 Status: Ordered Repeat number: 1 Problems Active Problems Problem Classification Problem Date Documented Date Episodic/Chronic Anxiety disorders (2 sources) Anxiety 10-17-2018 Chronic Attention-deficit, conduct, and disruptive behavior disorders (2 sources) Attention deficit hyperactivity disorder 10-17-2018 Chronic Gastroduodenal ulcer (except hemorrhage) (1 source) Peptic ulcer, site unspecified, unspecified as acute or chronic, without hemorrhage or perforation; Translations: [PU SITE UNS UNS AC/CHR NO HEM/PERF] Onset: 10-16-2020 Chronic Miscellaneous mental health disorders (2 sources) Mental disorder 10-17-2018 Chronic Mood disorders (4 sources) Bipolar disorder; Translations: [Depressive disorder] 10-17-2018 Chronic Other aftercare (4 sources) Other snf (current) drug therapy; Translations: [OTH GROUP HOME CURRENT DRUG THERAPY] Onset: 08-13-2021 Episodic Residual codes; unclassified (2 sources) Localized edema; Translations: [Localized edema] Onset: 07-26-2024 Episodic Residual codes; unclassified (2 sources) Insomnia 10-17-2018 Episodic Skin and subcutaneous tissue infections (2 sources) Cellulitis of lower limb; Translations: [Cellulitis of right lower limb] Onset: 07-26-2024 Episodic Substance-related disorders (3 sources) Nicotine dependence, cigarettes, uncomplicated; Translations: [Smoker] Onset: 10-16-2020 07-26-2024 Chronic Comment on above: Added secondary to d ocumentation in Social History. Past or Other Problems Problem Classification Problem Date Documented Da te Episodic/Chronic Abdominal pain (3 sources) Unspecified abdominal pain; Translations: [UNSPECIFIED ABDOMINAL PAIN] Onset: 10-14-2020 Episodic Results Test Name Value Interpretation Reference Range Facility US Lower Extremity Venous Du plex Bilateralon 07-30-2024 US Lower Extremity Venous Duplex Bilateral Exam Date/Time: 07/29/2024 21:19 EDT Reason for Exam: Pain, bilateral Report IMPRESSION: NO SONOGRAPHIC EVIDENCE OF DEEP VENOUS THROMBOSIS OF THE RIGHT OR LEFT LOWER EXTREMITY. TECHNIQUE: RIGHT AND LEFT LOWER EXTREMITY VENOUS DUPLEX EXAM WAS PERFORMED CLINICAL HISTORY: Bilateral lower extremity pain The common femoral, femoral, deep femoral, popliteal and calf veins were evaluated for deep venous thrombosis. The veins were evaluated with color Doppler imaging, compression and augmentation if possible. The right and left peroneal veins were not visualized. No sonographic evidence of deep venous thrombosis. Ordering Provider: Silvestre Barton FINAL REPORT Dictated: 07/30/2024 9:52 am Eitan Morrow DO Signed (Electronic Signature): 07/30/2024 9:52 am Signed by: Eitan Morrow DO Transcribed by: SESAR Technologist: LES Lindquist [facility] BMPOrdered By: SYSTEM SYSTEM on 07-29-2024 Anion gap [Moles/Vol] 6 mmol/L Normal 6-16 Rem isol Chem Comment on above: Performed By: #### 2 [id number] #### [facility] [address] [place] [address] Calcium [Mass/Vol] 8.9 mg/dL Normal 8.9-11.1 Remiso l Chem Comment on above: Performed By: #### 2 [id number] #### [facility] [address] [place] [address] Chloride [Moles/Vol] 104 mmol/L Normal 101-111 [facility] angelika Chem Comment on above: Performed By: #### 2 [id number] #### [facility] [address] [place] [address] CO2 [Moles/Vol] 31 mmol/L Normal 21-31 Remisol C hem Comment on above: Performed By: #### 2 [id number] #### [facility] [address] [place] [address] Creatinine [Mass/Vol] 0.7 mg/dL Normal 0.5-1.3 Rem isol Chem Comment on above: Performed By: #### 2 [id number] #### [facility] [address] [place] [address] Glucose [Mass/Vol] 108 mg/dL Normal 55-199 Remiso l Chem Comment on above: Performed By: #### 2 [id number] #### [facility] [address] [place] [address] Potassium [Moles/Vol] 4.3 mmol/L Normal 3.5-5.3 Rem isol Chem Comment on above: Performed By: #### 2 [id number] #### [facility] [address] [place] [address] Sodium [Moles/Vol] 137 mmol/L Normal 135-145 Remiso l Chem Comment on above: Performed By: #### 2 [id number] #### [facility] [address] [place] [address] Urea nitrogen [Mass/Vol] 12 mg/dL Normal 5-21 Remisol Chem Comment on above: Performed By: #### 2 [id number] #### [facility] [address] [place] [address] BMPon 07-29-2024 BUN/Creat Ratio 17 No Units Normal 10-20 [facility] Comment on above: Performed By: #### 2 [id number] #### [facility] [address] [place] [address] BNPOrdered By: Javan up 07-29-2024 Natriuretic peptide B (Bld) [Mass/Vol] 53 pg/mL Normal 5-80 [facility] HemeManSS Comment on above: Performed By: #### 1 [id number] #### [facility] [address] [place] [address] CBC w/ Auto Diffon 5 Basophil Absolute 0.1 E9/L Normal 0.0-0.2 [facility] Comment on above: Performed By: #### 2 [id number] #### [facility] [address] [place] [address] Eos Absolute 0.6 E9/L High 0.0-0.5 [facility] Comment on above: Performed By: #### 2 [id number] #### [facility] [address] [place] [address] Lymph Absolute 2.4 E9/L Normal 1.0-4.0 [facility] Comment on above: Performed By: #### 2 [id number] #### [facility] [address] [place] [address] Meagher Absolute 0.9 E9/L Normal 0.2-1.0 [facility] Comment on above: Performed By: #### 2 [id number] #### [facility] [address] [place] [address] Neutro Absolute 4.5 E9/L Normal 2.0-7.5 [facility] Comment on above: Performed By: #### 2 [id number] #### [facility] [address] [place] [address] Neutro Auto 53.7 % Normal 36.0-75.0 [facility] Comment on above: Performed By: #### 2 [id number] #### [facility] [address] [place] [address] Platelet 324.0 E9/L Normal 150.0-500.0 [facility] Comment on above: Performed By: #### 2 [id number] #### [facility] [address] [place] [address] RBC 4.6 E12/L Normal 4.3-5.9 [facility] Comment on above: Performed By: #### 2 300274 #### [facility] [address] [place] [address] WBC 8.5 E9/L Normal 4.0-11.0 [facility] Comment on above: Performed By: #### 2 [id number] #### [facility] [address] [place] [address] CBC w/ Auto DiffOrdered By: SYSTEM SYSTEM on 07-29-2024 Basophils/100 WBC (Bld) 0.9 % Normal 0.0-2.0 Remisol Heme Comment on above: Performed By: #### 2 [id number] #### [facility] [address] [place] [address] Eosinophils/100 WBC (Bld) 6.6 % Normal 0.0-8.0 Remisol Heme Comment on above: Performed By: #### 2 [id number] #### [facility] [address] [place] [address] Erythrocyte distribution width (RBC) [Ratio] 13.4 % Normal 10.9-14.2 Remisol Heme Comment on above: Performed By: #### 2 [id number] #### [facility] [address] [place] [address] Hematocrit (Bld) [Volume fraction] 41.6 % Normal 34.0-46.0 Remisol Heme Comment on above: Performed By: #### 2 252730 #### [facility] [address] [place] [address] Hemoglobin (Bld) [Mass/Vol] 14.4 g/dL Normal 12.0-16.0 Remisol Heme Comment on above: Performed By: #### 2 [id number] #### [facility] [address] [place] [address] Lymphocytes/100 WBC (Bld) 28.6 % Normal 14.0-50.0 Remisol Heme Comment on above: Performed By: #### 2 201950 #### [facility] [address] [place] [address] MCH (RBC) [Entitic mass] 31.5 pg Normal 27.0-34.0 Remisol Heme Comment on above: Performed By: #### 2 [id number] #### [facility] [address] [place] [address] MCHC (RBC) [Mass/Vol] 34.7 g/dL Normal 31.4-36.0 Rem isol Heme Comment on above: Performed By: #### 2 [id number] #### [facility] [address] [place] [address] MCV (RBC) [Entitic vol] 90.7 fL Normal 80.0-100.0 Remisol Heme Comment on above: Performed By: #### 2 253412 #### [facility] [address] [place] [address] Monocytes/100 WBC (Bld) 10.2 % Normal 4.0-14.0 Remisol Heme Comment on above: Performed By: #### 2 [id number] #### [facility] [address] [place] [address] Platelet mean volume (Bld) [Entitic vol] 7.2 fL Normal 6.4-10.8 Remisol Heme Comment on above: Performed By: #### 2 [id number] #### [facility] [address] [place] [address] CHEMISTRYOrdered By: SYSTEM SYSTEM on 07-29-2024 CRP [Mass/Vol] 0.5 mg/dL Normal <=1.9mg/dL Remisol Ch em GFR/1.73 sq M.predicted MDRD (S/P/Bld) [Vol rate/Area] 112 mL/min/1.73 m2 Normal >=59mL/min/1.7 3 m2 Remisol Chem Urea nitrogen/Creatinine [Mass ratio] 17 mg/mg Normal 10 - 20 Remisol Chem CRPon 07-29-2024 CRP 0.5 mg/dL Normal <=1.9 [facility] Comment on above: Performed By: #### 2 [id number] #### [facility] [address] [place] [address] ED Clinical Summaryon 2024 ED Clinical Summary ED Clinical Summary [address] [address] ED Clinical Summary Person Information Name: MORRIS DURANT[place] Age: 39 Years : 1985 Sex: Female Language: Iraqi PCP: NONE, XXXX Marital Status: Single Phone: [phone] Visit Id: Visit Reason: Lower leg pain-swelling; Cellulitis reevaluation; Skin problem; RT LEG RASH, FEET ARE SWOLLEN, WAS TOLD BY ER TO RETURN IF IT DIDN'T GET BETTER Speciality: Acuity: 3 Enc Type: Emergency Med Service: Emergency Arrival: 07/29/2024 19:20:01 Discharge: 07/29/2024 21:43:32 LOS: 000 02:23 Checkin: 07/29/2024 19:20:01 Checkout: 07/29/2024 21:43:32 Dispo Type: Home (Routine DC) EVENTS: Event Name Event Status Request Date/Time Start Date/Time Complete Date/Time Arrive Complete 07/29/2024 19:20:01 07/29/2024 19:20:01 07/29/2024 19:20:01 Document Home Meds Request 07/29/2024 19:20:01 Triage Complete 07/29/2024 19:20:01 07/29/2024 19:32:15 07/29/2024 19:32:15 Registration Complete 07/29/2024 19:25:19 07/29/2024 19:25:19 07/29/2024 19:25:19 Reg Complete Request 07/29/2024 19:25:19 Reg Bed Request Complete 07/29/2024 19:25:19 07/29/2024 19:25:19 07/29/2024 19:25:19 Bed Assign Complete 07/29/2024 19:33:06 07/29/2024 19:33:06 07/29/2024 19:33:06 Dr Exam Complete 07/29/2024 19:33:06 07/29/2024 19:36:04 07/29/2024 19:36:04 RN Exam Complete 07/29/2024 19:33:06 07/29/2024 21:41:18 07/29/2024 21:41:18 Registration Request 07/29/2024 19:36:04 Pending Labs Complete 07/29/2024 19:52:48 07/29/2024 20:38:28 Lab Complete 07/29/2024 19:52:48 07/29/2024 20:38:28 US Complete 07/29/2024 19:52:48 07/29/2024 20:28:58 07/29/2024 21:19:12 Meds Admin Complete 07/29/2024 19:52:48 07/29/2024 19:59:21 Pending Labs Complete 07/29/2024 20:04:08 07/29/2024 20:04:08 07/29/2024 20:28:03 Lab Complete 07/29/2024 20:04:08 07/29/2024 20:04:08 07/29/2024 20:28:03 Pending Labs Complete 07/29/2024 20:08:03 07/29/2024 20:08:03 07/29/2024 20:08:03 Discharge Complete 07/29/2024 21:22:26 07/29/2024 21:43:40 07/29/2024 21:43:40 Transfer Complete 07/29/2024 21:43:40 07/29/2024 21:43:40 07/29/2024 21:43:40 ADDRESS: [address] [place] [id number] PHYS DOC NOTES: MEDICAL INFORMATION: Prescriptions Given: New Medications [id number], [address], [place] [id number], [phone] doxycycline (doxycycline hyclate 100 mg Tab) 1 Tablets By Mouth every 12 hours for 10 Days. Refills: 0. Medications to Continue with No Changes Other Medications clonidine (cloNIDine 0.1 mg tab) By Mouth 2 times a day. hydrOXYzine (hydrOXYzine hydrochloride 25 mg Tab) 1 Tablets By Mouth every day. sulfamethoxazole-tri methoprim (Bactrim D.S. 800 mg-160 mg Tab) 1 Tablets By Mouth 2 times a day for 7 Days. Refills: 0. trazodone By Mouth 2 times a day. venlafaxine (Effexor XR 150 mg Cap-ER) 1 Capsules By Mouth every day. To be taken with 37. 5. venlafaxine (Effexor XR 37.5 mg Cap-ER) 1 Capsules By Mouth every day. to be taken with the 150. PATIENT EDUCATION INFORMATION: Instructions: Peripheral Edema; Cellulitis, Adult, [id number] Follow up: With: Address: When: Irma Morales [address] [place] [address] Business (1) In 3 days 08/01/2024 Comments: Stop the Bactrim and stop applying Neosporin to the area. Start the doxycycline tomorrow twice a day and to complete the course. If symptoms worsen please return to the ED as I believe you would need IV antibiotics at that point. With: Address: When: XXXX NONE , [place] In 3 days DIAGNOSIS: Cellulitis of leg; Peripheral edema Normal [facility] ED Note-Physicianon 07-30-19 ED Note-Physician ED Note-Physician Basic Information Time Seen: Silvestre Barton DO 07/29/2024 19:36 Chief Complaint Pt arrives to ED from home with c/o ANETA lower leg swelling. Diagnosed with cellulitis to right leg and started on bactrim over the weekend. States rash/redness is now oozing. Denies fevers, chills, n/v. History of Present Illness Patient is a 39-year-old female with past medical history of bipolar disorder, anxiety presenting to the ED for evaluation of bilateral lower extremity swelling right leg redness. Patient states the redness started last week was seen here last week was started on Bactrim. Patient states he has been taking it however has noted some oozing from the rash on her right leg. Patient denies any fevers, chills, nausea or vomiting. Denies any other complaints. Does note some swelling to her bilateral extremities with some tenderness to palpation of the posterior calves. Review of Systems A 10 point review of systems is negative except as noted above. Medical and Surgical History: Reviewed and noted Social history: Lives at home Tobacco: Denies Physical Exam Vitals & Measurements T: 36.5 ???C(Oral) HR: 67(Peripheral) RR: 18 BP: 168/113 SpO2: 96% HT: 165 cm WT: 123.4 kg BMI: 45.33 General: Well developed, non toxic appearing, no acute distress HEENT: Head atraumatic, Mucosa moist, hearing grossly normal Neck: No JVD, tracheal deviation Cardiac: Regular rate, rhythm, no murmurs, or gallops, 2+ radial pulses Respiratory: Lungs clear to auscultation B/L, normal respiratory effort Abdomen: Soft non tender, no rebound or guarding, no peritoneal signs Extremities: Swelling noted to the bilateral lower extremities 3-4+, there is erythema and redness noted to the right lower extremity Neurologic: Alert and oriented, speech clear Skin: No rashes or lesions Psych: Appropriate mood and behavior Medical Decision Making MEDICAL DECISION MAKING Number and Complexity of Problems Differential Diagnosis: [] [facility] Data External documents reviewed: [] My EKG interpretation: [] My CT interpretation: [] My X-ray interpretation: [] My Ultrasound interpretation: [] Decision rules/scores evaluated: [] Discussed with: [] Treatment and Disposition ED Course: Patient is a 39-year-old female presenting to the ED for evaluation of bilateral lower extremity swelling, right lower extremity redness. Patient's nontoxic and on arrival, no acute distress. There is erythema and redness noted to the right lower extremity. Patient's laboratory evaluations unremarkable with laboratory markers are negative, lower extremity duplex is negative. Discussed findings with patient recommendation for admission patient states she would prefer a different antibiotic at this time and does not want to be admitted. Patient is given dose of vancomycin in the ED. Patient advised to stop the Bactrim she is to started on doxycycline. She is to follow-up with her primary care doctor for further evaluation management. She is to return to the ED for any new or worsening symptoms. Shared decision making: [] Code status: [] Assessment/Plan Cellulitis of leg (L03.119: Cellulitis of unspecified part of limb) Peripheral edema (R60.0: Localized edema) Orders: doxycycline, 100 mg = 1 tab(s), Oral, q12hr, X 10 day(s), # 20 tab(s), Refills(s) 0, Pharmacy: [facility]/pharmacy #[id number], 165, cm, 07/29/24 19:32:00 EDT, Height/Length Dosing, 123.4, kg, 07/29/24 19:32:00 EDT, Weight Dosing vancomycin + Generic Diluent 300 mL, Reason for Vancomycin: MRSA colonization or infection, 1,500 mg = 300 mL, Soln-IV, IV Piggyback, Once, Stop date 07/29/24 20:00:00 EDT, Routine, Start date 07/29/24 20:00:00 EDT, Infuse over 90 minute(s) B-Type Natriuretic Peptide Basic Metabolic Panel C-Reactive Protein CBC w/ Auto Diff eGFR Extra Blue Tube Extra SST Tube US Lower Extremity Venous Duplex Bilateral Medications Administered Given vanc1.5SOL [F] 1500 mg + GenDil 300 mL, IV Piggyback Disposition Plan Discharge Prescription List Prescriptions doxycycline hyclate 100 mg Tab, 100 mg= 1 tab(s), Oral, q12hr Follow-up With When Contact Information Irma Morales In 3 days 08/01/[address] [place] [address]- Business (1) Additional Instructions: Stop the Bactrim and stop applying Neosporin to the area. Start the doxycycline tomorrow twice a day and to complete the course. If symptoms worsen please return to the ED as I believe you would need IV antibiotics at that point. XXXX NONE In 3 days [place] Additional Instructions: Patient Education Peripheral Edema Cellulitis, Adult, Cgkr-gq-Lyli Problem List/Past Medical History Ongoing ADHD Anxiety Bipolar illness Depression Insomnia Psychiatric disorder Smoker Historical No qualifying data Procedure/Surgical History Tonsillectomy and adenoidectomy; age 11 or over. Medications Inpatient No active inpatient medications (more content not included)... Normal [facility] Comment on above: Result Comment: Elec tronically Signed By: Silvestre Barton DO\.br\Date and Time Signed: 07/29/24 21:31 EDT ED Patient Summaryon 025 ED Patient Summary ED Patient Summary [address] [address] Patient Discharge Instructions Person Information Name: MORRIS DURAN Age: 39 Years Arrival Date: 07/29/2024 19:20:01 Discharge Diagnosis: Cellulitis of leg; Peripheral edema Primary Care Physician: NONE, XXXX Provider Information Primary Provider: Silvestre Barton DO Advanced Hydraulic Plumber:None The exam and treatment you received in the Emergency Department were for an urgent problem and are not intended as complete care. It is important that you follow up with a doctor, nurse practitioner, or physician???s recruiting assistant for ongoing care. If your symptoms become worse or you do not improve as expected and you are unable to reach your usual health care provider, you should return to the Emergency Department. We are available 24 hours a day. MORRIS DURAN has been given the following list of patient education materials, prescriptions and follow-up instructions: Follow-up Instructions: With: Address: When: Irma [place] [address] [place] [address] Business (1) In 3 days 08/01/2024 Comments: Stop the Bactrim and stop applying Neosporin to the area. Start the doxycycline tomorrow twice a day and to complete the course. If symptoms worsen please return to the ED as I believe you would need IV antibiotics at that point. With: Address: When: XXXX [facility] [place] In 3 days In the event that this physician does not participate in your insurance network, please consult with your insurance company to find a nearby participating provider. Patient Education Materials: Peripheral Edema; Cellulitis, Adult, Josg-ij-[id number] A MESSAGE TO ALL PATIENTS REGARDING OPIOIDS PRESCRIPTION OPIOIDS: WHAT YOU NEED TO KNOW Prescription opioids can be used to help relieve hhmqtqlp-hl-glpaep pain and are often prescribed following a surgery or injury, or for certain health conditions. These medications can be an important part of the treatment but also come with serious risks. It is important to work with your healthcare provider to make sure you are getting the safest, most effective care. WHAT ARE THE RISKS AND SIDE EFFECTS OF OPIOID USE? Prescription opioids carry serious risks of addiction and overdose, especially with prolonged use. An opioid overdose, often marked by slowed breathing, can cause sudden . The use of prescription opioids can have a number of side effects as well, even when taken as directed: ??? Tolerance???meaning you might need to take more of the medication for the same pain relief ??? Physical dependence???meaning you have symptoms of withdrawal when a medication is stopped ??? Increased sensitivity to pain ??? Constipation ??? Nausea, vomiting, and dry mouth ??? Sleepiness and dizziness ??? Confusion ??? Depression ??? Low levels of testosterone that can result in lower sex drive, energy, and strength ??? Itching and sweating RISKS ARE GREATER WITH: ??? History of drug misuse, substance use disorder, or overdose ??? Mental health conditions (such as depression or anxiety) ??? Sleep apnea ??? Older age (65 years and older) ??? Avoid alcohol while taking prescription opioids. Also, unless specifically advised by your health care provider, medications to avoid include: ??? Benzodiazepines (such as Xanax or Valium) ??? Muscle relaxants (such as Soma or Flexeril) ??? Hypnotics (such as Ambien or Lunesta) ??? Other prescription opioids KNOW YOUR OPTIONS Talk to your health care provider about ways to manage your pain that don???t involve prescription opioids. Some of these options may actually work better and have fewer risks and side effects. Options may include: ??? Pain relievers such as acetaminophen, ibuprofen, and naproxen ??? Some medication that are also used for depression or seizures ??? Physical therapy and exercise ??? Cognitive behavioral therapy, a psychological, goal-directed approach, in which patients learn how to modify physical, behavioral, and emotional triggers of pain and stress. IF YOU ARE PRESCRIBED OPIOIDS FOR PAIN: ??? Never take opioids in greater amounts or more often than prescribed. ??? Follow up with your primary health care provider. o Work together to create a plan on how to manage your pain. o Talk about ways to help manage your pain that don???t involve prescription opioids. o Talk about any and all concerns and side effects. ??? Help prevent misuse and abuse o Never sell or share prescription opioids. o Never use another person???s prescription opioids. ??? Store prescription opioids in a secure place and out of reach of others (this may include visitors, children, friends, and family). ??? Safely dispose of unused prescription opioids: Find your community drug take-back program or your pharmacy mail-back program, or (more content not included)... Normal [facility] Extra Blueon 07-29-2024 Tube Collected Plasma Yes Invalid Interpretation Code [facility] Comment on above: Performed By: #### 1 [id number] #### [facility] [address] [id number] HEMATOLOGYOrdered By: SYSTEM SYSTEM on 07-29-2024 Basophils/Leukocytes Auto (Bld) [Pure # fraction] 0.1 E9/L Normal 0.0 - 0.2 E9/L Remisol Heme Eosinophils (Bld) [#/Vol] 0.6 E9/L High 0.0 - 0.5 E9/L Remisol Heme Lymphocytes (Bld) [#/Vol] 2.4 E9/L Normal 1.0 - 4.0 E9/L Remisol Heme Monocytes (Bld) [#/Vol] 0.9 E9/L Normal 0.2 - 1.0 E9/L Remisol Heme Neutrophils (Bld) [#/Vol] 4.5 E9/L Normal 2.0 - 7.5 E9/L Remisol Heme Neutrophils/100 WBC (Bld) 53.7 % Normal 36.0 - 75.0 % Remisol Heme Platelets (Bld) [#/Vol] 324.0 E9/L Normal 150.0 - 500.0 E9/L Remisol Heme RBC (Bld) [#/Vol] 4.6 E12/L Normal 4.3 - 5.9 E12/L Remisol Heme WBC corrected for nucl RBC Auto (Bld) [#/Vol] 8.5 E9/L Normal 4.0 - 11.0 E9/L Remisol Heme eGFRon 07-29-2024 eGFR 112 mL/min/1.73 m2 Normal >=59 [facility] Comment on above: Performed By: #### 1 [id number] #### [facility] [address] [id number] ED Clinical Summaryon 2024 ED Clinical Summary ED Clinical Summary [address] [address] ED Clinical Summary Person Information Name: MORRIS DURAN [facility] Age: 39 Years : 1985 Sex: Female Language: Iraqi PCP: NONE, XXXX Marital Status: Single Phone: [phone] Visit Id: Visit Reason: Leg pain-swelling; Cellulitis - Leg; Foot pain-swelling; feet swollen, right foot red Speciality: Acuity: 3 Enc Type: Emergency Med Service: Emergency Arrival: 07/26/2024 22:35:08 Discharge: 07/27/2024 00:17:55 LOS: 000 01:42 Checkin: 07/26/2024 22:35:08 Checkout: 07/27/2024 00:17:55 Dispo Type: Home (Routine DC) EVENTS: Event Name Event Status Request Date/Time Start Date/Time Complete Date/Time Arrive Complete 07/26/2024 22:35:08 07/26/2024 22:35:08 07/26/2024 22:35:08 Document Home Meds Request 07/26/2024 22:35:08 Triage Complete 07/26/2024 22:35:08 07/26/2024 22:50:07 07/26/2024 22:50:07 Registration Complete 07/26/2024 22:41:54 07/26/2024 22:41:54 07/26/2024 22:41:54 Reg Complete Request 07/26/2024 22:41:54 Reg Bed Request Complete 07/26/2024 22:41:54 07/26/2024 22:41:54 07/26/2024 22:41:54 Bed Assign Complete 07/26/2024 22:51:22 07/26/2024 22:51:22 07/26/2024 22:51:22 Dr Exam Complete 07/26/2024 22:51:22 07/26/2024 22:52:16 07/26/2024 22:52:16 RN Exam Complete 07/26/2024 22:51:22 07/26/2024 23:11:32 07/26/2024 23:11:32 Registration Request 07/26/2024 22:52:16 Dr Exam Complete 07/26/2024 22:53:06 07/26/2024 22:53:06 07/26/2024 22:53:06 Meds Admin Complete 07/26/2024 23:28:59 07/27/2024 00:13:07 Discharge Complete 07/26/2024 23:30:19 07/27/2024 00:17:59 07/27/2024 00:17:59 Transfer Complete 07/27/2024 00:17:59 07/27/2024 00:17:59 07/27/2024 00:17:59 ADDRESS: [address] [phone] PHYS DOC NOTES: MEDICAL INFORMATION: Prescriptions Given: New Medications [id number], [address] [place], [place] [id number], [phone] sulfamethoxazole-tri methoprim (Bactrim D.S. 800 mg-160 mg Tab) 1 Tablets By Mouth 2 times a day for 7 Days. Refills: 0. Medications to Continue with No Changes Other Medications clonidine (cloNIDine 0.1 mg tab) By Mouth 2 times a day. hydrOXYzine (hydrOXYzine hydrochloride 25 mg Tab) 1 Tablets By Mouth every day. trazodone By Mouth 2 times a day. venlafaxine (Effexor XR 150 mg Cap-ER) 1 Capsules By Mouth every day. To be taken with 37. 5. venlafaxine (Effexor XR 37.5 mg Cap-ER) 1 Capsules By Mouth every day. to be taken with the 150. PATIENT EDUCATION INFORMATION: Instructions: Edema; Cellulitis, Adult Follow up: With: Address: When: [address] [id number] Business (1) In 3 days 07/29/2024 DIAGNOSIS: Bilateral leg edema; Cellulitis of right lower leg Normal [facility] ED Note-Physicianon 07-28-19 ED Note-Physician ED Note-Physician Basic Information Time Seen: [address], Jeffrey Ellsworth 07/26/2024 22:52 Chief Complaint states bilateral feet, ankle are swollen. redness to right lower leg. History of Present Illness Patient is a 39-year-old female who presents today for evaluation of her bilateral foot and ankle swelling and redness to her right lower leg. Patient states that this has been going on for the last couple of days. The redness in her right lower leg started and is worsened. She denies any calf pain and most of her pain is just in her ankle and foot due to the swelling. It is worse on the right. Denies any fevers, bodies, chills. Denies any recent surgery or travel. She is not on any oral contraceptives. Review of Systems No other aggravating or relieving factors no other associated symptoms no other prior treatments or complaints. Family: Reviewed and noncontributory Social: lives at home Review of systems negative unless otherwise specified in the HPI. Physical Exam Vitals & Measurements T: 36.7 ???C(Oral) HR: 69(Peripheral) RR: 16 BP: 151/92 SpO2: 97% HT: 162 cm WT: 124.7 kg BMI: 47.52 Vital Signs reviewed and noted. General: Alert, no acute distress, patient resting comfortably Skin: warm, intact, no pallor noted Head: Normocephalic, atraumatic Eye: Normal conjunctiva Cardiac: Normal peripheral perfusion Respiratory: No acute distress Musculoskeletal: No deformity, full ROM. Swelling of bilateral lower extremities about the ankle leading into the foot right greater than left. There is erythema and warmth noted to the anterior portion of the right ankle. No calf tenderness bilaterally. Neurological: alert and oriented, normal sensory and motor observed. Psychiatric: Cooperative Medical Decision Making Patient is a 39-year-old female who presents today for evaluation of bilateral foot and ankle swelling and redness to her right lower leg. Symptoms been going on for the last couple of days. Right lower leg is worse. On exam patient is afebrile and nontoxic-appearing. She is not tachycardic or hypotensive. Swelling of bilateral lower extremities about the ankle leading into the foot right greater than left. There is erythema and warmth noted to the anterior portion of the right ankle. No calf tenderness bilaterally. Patient appears to have cellulitis of the right lower extremity leading to her edema. She is allergic to Ceclor and therefore we will go ahead and start her on Bactrim which she has tolerated in the past. Discussed elevating the area for further symptomatic management. She may obtain compression stockings for further symptomatic management as the cellulitis improves. She will be discharged home with close follow-up with her PCP. We discussed if she has new or worsening symptoms she should probably return to the ED for evaluation. Return to ED precautions were reviewed with the patient at length. Assessment/Plan Bilateral leg edema (R60.0: Localized edema) Cellulitis of right lower leg (L03.115: Cellulitis of right lower limb) Orders: sulfamethoxazole-tri methoprim, 1 tab(s), Oral, BID for 7 day(s), 14 tab(s), Refill(s) 0, [id number], 162, cm, 07/26/24 22:50:00 EDT, Height/Length Dosing, 124.7, kg, 07/26/24 22:50:00 EDT, Weight Dosing sulfamethoxazole-tri methoprim, 1 tab(s), Tab, Oral, Once, Stop date 07/26/24 23:28:00 EDT, STAT, Start date 07/26/24 23:28:00 EDT Disposition Plan Patient Discharge Condition Stable Discharge Disposition Home Discharge Prescription List Prescriptions Bactrim D.S. 800 mg-160 mg Tab, 1 tab(s), Oral, BID Follow-up With When Contact Information Ajith Link In 3 days 07/29/2024 EDT [address] [phone] Business (1) Additional Instructions: Patient Education Edema Cellulitis, Adult Attestation Patient seen and evaluated by the physician recruiting assistant. Attending physician was present in the emergency department and supervised care. This visit was performed by both the physician and an APC. I performed all aspects of the MDM as documented. This report was transcribed using voice recognition software. Every effort was made to ensure accuracy, however, inadvertently computerized wildlife biologist mistakes may be present. Appropriate healthcare PPE was used in evaluating this patient. The healthcare provider was wearing gloves, and utilizing proper hand hygiene. All equipment was properly cleansed. I performed a substantive part of the MDM during the patient???s E/M visit. I personally made or approved the documented management plan and acknowledge its risk of complications. (Independent Interpretation) My (EKG/X-Ray/US/CT as applicable) interpretation as above. (Discussion) Management/test interpretation discussed with APC. Problem List/Past Medical History Ongoing ADHD Anxiety Bipolar illness Depression Insomnia Psychiatric disorder Smoker Historical No qualifying data Procedure/Surgical History Tonsillectomy and ad (more content not included)... Normal [facility] Comment on above: Result Comment: Elec tronically Signed By: Jeffrey Rodríguez PA-C\.br\Date and Time Signed: 07/27/24 00:21 EDT\.br\Electronically Co-Signed By: Nirmala Moser M.D.\.br\Date and Time Co-Signed: 07/27/24 02:10 EDT ED Patient Summaryon 025 ED Patient Summary ED Patient Summary [address] [address] Patient Discharge Instructions Person Information Name: MORRIS DURAN Age: 39 Years Arrival Date: 07/26/2024 22:35:08 Discharge Diagnosis: Bilateral leg edema; Cellulitis of right lower leg Primary Care Physician: NONE, XXXX Provider Information Primary Provider: Nirmala Moser M.D. Advanced Hydraulic Plumber:Jeffrey Rodríguez PA-C The exam and treatment you received in the Emergency Department were for an urgent problem and are not intended as complete care. It is important that you follow up with a doctor, nurse practitioner, or physician???s recruiting assistant for ongoing care. If your symptoms become worse or you do not improve as expected and you are unable to reach your usual health care provider, you should return to the Emergency Department. We are available 24 hours a day. MORRIS DURAN has been given the following list of patient education materials, prescriptions and follow-up instructions: Follow-up Instructions: With: Address: When: Ajith Link [address] [place] [id number] Business (1) In 3 days 07/29/2024 In the event that this physician does not participate in your insurance network, please consult with your insurance company to find a nearby participating provider. Patient Education Materials: Edema; Cellulitis, Adult A MESSAGE TO ALL PATIENTS REGARDING OPIOIDS PRESCRIPTION OPIOIDS: WHAT YOU NEED TO KNOW Prescription opioids can be used to help relieve hmgrjngi-yj-pchojd pain and are often prescribed following a surgery or injury, or for certain health conditions. These medications can be an important part of the treatment but also come with serious risks. It is important to work with your healthcare provider to make sure you are getting the safest, most effective care. WHAT ARE THE RISKS AND SIDE EFFECTS OF OPIOID USE? Prescription opioids carry serious risks of addiction and overdose, especially with prolonged use. An opioid overdose, often marked by slowed breathing, can cause sudden . The use of prescription opioids can have a number of side effects as well, even when taken as directed: ??? Tolerance???meaning you might need to take more of the medication for the same pain relief ??? Physical dependence???meaning you have symptoms of withdrawal when a medication is stopped ??? Increased sensitivity to pain ??? Constipation ??? Nausea, vomiting, and dry mouth ??? Sleepiness and dizziness ??? Confusion ??? Depression ??? Low levels of testosterone that can result in lower sex drive, energy, and strength ??? Itching and sweating RISKS ARE GREATER WITH: ??? History of drug misuse, substance use disorder, or overdose ??? Mental health conditions (such as depression or anxiety) ??? Sleep apnea ??? Older age (65 years and older) ??? Avoid alcohol while taking prescription opioids. Also, unless specifically advised by your health care provider, medications to avoid include: ??? Benzodiazepines (such as Xanax or Valium) ??? Muscle relaxants (such as Soma or Flexeril) ??? Hypnotics (such as Ambien or Lunesta) ??? Other prescription opioids KNOW YOUR OPTIONS Talk to your health care provider about ways to manage your pain that don???t involve prescription opioids. Some of these options may actually work better and have fewer risks and side effects. Options may include: ??? Pain relievers such as acetaminophen, ibuprofen, and naproxen ??? Some medication that are also used for depression or seizures ??? Physical therapy and exercise ??? Cognitive behavioral therapy, a psychological, goal-directed approach, in which patients learn how to modify physical, behavioral, and emotional triggers of pain and stress. IF YOU ARE PRESCRIBED OPIOIDS FOR PAIN: ??? Never take opioids in greater amounts or more often than prescribed. ??? Follow up with your primary health care provider. o Work together to create a plan on how to manage your pain. o Talk about ways to help manage your pain that don???t involve prescription opioids. o Talk about any and all concerns and side effects. ??? Help prevent misuse and abuse o Never sell or share prescription opioids. o Never use another person???s prescription opioids. ??? Store prescription opioids in a secure place and out of reach of others (this may include visitors, children, friends, and family). ??? Safely dispose of unused prescription opioids: Find your community drug take-back program or your pharmacy mail-back program, or flush them down the toilet, following guidance from the Food and Drug Administration (www.fda.gov/Drugs/R esourcesForYou). ??? Visit www.cdc.gov/drugover dose to learn about the risks of opioids abuse and overdose. ??? If you believe you may be struggling with addiction, tell your heal (more content not included)... Normal [facility] CBC AUTO DIFFon 08-13-2021 BASO # 0.0 103/ul Normal 0.0-0.1 [facility] Comment on above: Performed By: #### C BC #### [facility] [address] [address] [address] Elmer Hopkins Basophils/100 WBC (Bld) 0.5 % Normal 0.2-2.0 [facility] Comment on above: Performed By: #### C BC #### [facility] [address] [address] [address] Elmer Hopkins EO # 0.7 103/ul Normal 0.0-0.7 [facility] Comment on above: Performed By: #### C BC #### [facility] [address] [address] [address] Elmer Hopkins Eosinophils/100 WBC (Bld) 9.4 % Critically high 0.9-7.0 [facility] Comment on above: Performed By: #### C BC #### [facility] [address] [address] [address] Elmer Hopkins Erythrocyte distribution width (RBC) [Ratio] 12.3 % Normal 11.0-15.0 [facility] Comment on above: Performed By: #### C BC #### [facility] [address] [address] [address] Elmer Hopkins Hematocrit (Bld) [Volume fraction] 45.0 % Normal 36.0-48.0 [facility] Comment on above: Performed By: #### C BC #### [facility] [address] [address] [address] Elmer Hopkins Hemoglobin (Bld) [Mass/Vol] 14.8 g/dL Normal 12.0-16.0 [facility] Comment on above: Performed By: #### C BC #### [facility] [address] [place] [address] Dr. Elmer Hopkins IG # 0.03 10e3/ul Normal 0.00-0.03 [facility] Comment on above: Performed By: #### C BC #### [facility] [address] [place] [address] Dr. Elmer Hopkins IG % 0.4 % Normal 0.0-0.5 [facility] Comment on above: Performed By: #### C BC #### [facility] [address] [place] [address] Dr. Elmer Hopkins LYMPH # 3.0 103/ul Normal 1.2-3.8 [facility] Comment on above: Performed By: #### C BC #### [facility] [address] [place] [address] Dr. Elmer Hopkins Lymphocytes/100 WBC (Bld) 37.3 % Normal 20.5-60.0 [facility] Comment on above: Performed By: #### C BC #### [facility] [address] [place] [address] Dr. Elmer Hopkins MANUAL DIFF REQ NO Normal [facility] Comment on above: Performed By: #### C BC #### [facility] [address] [place] [address] Dr. Elmer Hopkins MCH (RBC) [Entitic mass] 31.5 pg Normal 26.7-34.0 [facility] Comment on above: Performed By: #### C BC #### [facility] [address] [place] [address] Dr. Elmer Hopkins MCHC (RBC) [Mass/Vol] 32.9 g/dL Normal 29.9-35.2 [facility] Comment on above: Performed By: #### C BC #### [facility] [address] [place] [address] Dr. Elmer Hopkins MCV (RBC) [Entitic vol] 95.7 fL Normal 81.0-99.0 [facility] Comment on above: Performed By: #### C BC #### [facility] [address] [address] [address] Elmer Hopkins MONO # 0.7 103/ul Normal 0.3-0.8 [facility] Comment on above: Performed By: #### C BC #### [facility] [address] [address] [address] Elmer Hopkins Monocytes/100 WBC (Bld) 9.0 % Normal 1.7-12.0 [facility] Comment on above: Performed By: #### C BC #### [facility] [address] [place] [address] Dr. Elmer Hopkins NEUT # 3.4 103/ul Normal 1.4-6.5 [facility] Comment on above: Performed By: #### C BC #### [facility] [address] [place] [address] Dr. Elmer Hopkins Neutrophils/100 WBC (Bld) 43.4 % Normal 43.0-75.0 [facility] Comment on above: Performed By: #### C BC #### [facility] [address] [place] [address] Dr. Elmer Hopkins Platelet mean volume (Bld) [Entitic vol] 9.4 fL Critically low 9.5-13.5 [facility] Comment on above: Performed By: #### C BC #### [facility] [address] [place] [address] Dr. Elmer Hopkins PLT 329 103/ul Normal 150-450 [facility] Comment on above: Performed By: #### C BC #### [facility] [address] [place] [address] Dr. Elmer Hopkins RBC 4.70 106/ul Normal 4.20-5.40 [facility] Comment on above: Performed By: #### C BC #### [facility] [address] [place] [address] Dr. Elmer Hopkins WBC 7.9 103/ul Normal 4.0-11.0 [facility] Comment on above: Performed By: #### C BC #### [facility] [address] [address] [address] Elmer Hopkins GLYCOHEMOGLOBIN A1Con 2021 ADA RECOMMENDATION SEE BELOW Normal [facility] Comment on above: Result Comment: ADA RECOMMENDED LIMIT 4.0 - 6.0 ADA THERAPEUTIC TARGET < 7.0 ACTION SUGGESTED > 7.0 Performed By: #### A 1C #### [facility] [address] [address] [address] Elmer Hopkins Glucose [Mass/Vol] 105 mg/dL Normal [facility] Comment on above: Performed By: #### A 1C #### [facility] [address] [place] [address] Dr. Elmer Hopkins HbA1c (Bld) [Mass fraction] 5.3 % Normal 4.5-6.2 [facility] Comment on above: Performed By: #### A 1C #### [facility] [address] [place] [address] Dr. Elmer Hopkins LIPID PROFILEon 08-13-2021 CHOL-HDL RATIO NORM SEE BELOW Normal [facility] Comment on above: Result Comment: 3.3 - 4.4 LOW RISK 4.4 - 7.1 AVERAGE RISK 7.1 - 11.0 MODERATE RISK >11.0 HIGH RISK Performed By: #### C MP, TSH, LIPID #### [facility] [address] [place] [address] Dr. Elmer Hopkins Cholesterol [Mass/Vol] 185 mg/dL Normal <=200 [facility] Comment on above: Performed By: #### C MP, TSH, LIPID #### [facility] [address] [place] [address] Dr. Elmer Hopkins Cholesterol in HDL [Mass/Vol] 45 mg/dL Normal 40-60 [facility] Comment on above: Performed By: #### C MP, TSH, LIPID #### [facility] [address] [place] [address] Dr. Elmer Hopkins Cholesterol in LDL [Mass/Vol] 120.4 mg/dL Normal [facility] Comment on above: Performed By: #### C MP, TSH, LIPID #### [facility] [address] [place] [address] Dr. Elmer Hopkins Cholesterol.total/Cho lesterol in HDL [Mass ratio] 4.1 {ratio} Normal [facility] Comment on above: Performed By: #### C MP, TSH, LIPID #### [facility] [address] [address] [address] Elmer Hopkins HDL NORMAL > or = 60 mg/dl - LOW CARDIOVASCULAR RISK <40 mg/dl - HIGH CARDIOVASCULAR RISK Normal [facility] Comment on above: Performed By: #### C MP, TSH, LIPID #### [facility] [address] [address] [address] Elmer Hopkins LDL CALC NORMAL SEE BELOW Normal [facility] Comment on above: Result Comment: <100 mg/dl OPTIMAL 100 - 129 mg/dl NEAR OR ABOVE OPTIMAL 130 - 159 mg/dl BORDERLINE HIGH 160 - 189 mg/dl HIGH >190 mg/dl VERY HIGH Performed By: #### C MP, TSH, LIPID #### [facility] [address] [address] [address] Elmer Hopkins Triglyceride [Mass/Vol] 98 mg/dL Normal <=150 [facility] Comment on above: Performed By: #### C MP, TSH, LIPID #### [facility] [address] [address] [address] Elmer Hopkins VLDL CALC 19.6 mg/dL Normal [facility] Comment on above: Performed By: #### C MP, TSH, LIPID #### [facility] [address] [address] [address] Elmer Hopkins PROF 14(COMP METB)on 022 Albumin [Mass/Vol] 3.3 g/dL Critically low 3.4-5.0 [facility] Comment on above: Performed By: #### C MP, TSH, LIPID #### [facility] [address] [place] [address] Dr. Elmer Hopkins Albumin/Globulin [Mass ratio] 0.9 {ratio} Normal [facility] Comment on above: Performed By: #### C MP, TSH, LIPID #### [facility] [address] [address] [address] Elmer Hopkins ALP [Catalytic activity/Vol] 99 U/L Normal 46-116 [facility] Comment on above: Performed By: #### C MP, TSH, LIPID #### [facility] [address] [address] [address] Elmer Hopkins ALT [Catalytic activity/Vol] 102 U/L Critically high 14-59 [facility] Comment on above: Performed By: #### C MP, TSH, LIPID #### [facility] [address] [address] [address] Elmer Hopkins Anion gap [Moles/Vol] 8.3 mmol/L Normal [facility] Comment on above: Performed By: #### C MP, TSH, LIPID #### [facility] [address] [place] [address] Dr. Elmer Hopkins AST [Catalytic activity/Vol] 49 U/L Critically high 15-37 [facility] Comment on above: Performed By: #### C MP, TSH, LIPID #### [facility] [address] [place] [address] Dr. Elmer Hopkins Bilirubin [Mass/Vol] 0.3 mg/dL Normal 0.2-1.0 [facility] Comment on above: Performed By: #### C MP, TSH, LIPID #### [facility] [address] [place] [address] Dr. Elmer Hopkins Calcium [Mass/Vol] 8.7 mg/dL Normal 8.5-10.1 [facility] Comment on above: Performed By: #### C MP, TSH, LIPID #### [facility] [address] [place] [address] Dr. Elmer Hopkins Chloride [Moles/Vol] 107 mmol/L Normal 98-107 [facility] Comment on above: Performed By: #### C MP, TSH, LIPID #### [facility] [address] [place] [address] Dr. Elmer Hopkins CO2 [Moles/Vol] 30.7 mmol/L Normal 21.0-32.0 [facility] Comment on above: Performed By: #### C MP, TSH, LIPID #### [facility] [address] [address] [address] Elmer Hopkins Creatinine [Mass/Vol] 0.94 mg/dL Normal 0.55-1.02 [facility] Comment on above: Performed By: #### C MP, TSH, LIPID #### [facility] [address] [address] [address] Elmer Hopkins EGFR-AF SURINAMESE >60 Normal >=60 [facility] Comment on above: Performed By: #### C MP, TSH, LIPID #### [facility] [address] [address] [address] Elmer Hopkins EGFR-NON AF SURINAMESE >60 Normal >=60 [facility] Comment on above: Performed By: #### C MP, TSH, LIPID #### [facility] [address] [address] [address] Elmer Hopkins Globulin (S) [Mass/Vol] 3.8 g/dL Normal [facility] Comment on above: Performed By: #### C MP, TSH, LIPID #### [facility] [address] [address] [address] Elmer Hopkins Glucose [Mass/Vol] 125 mg/dL Critically high 74-106 [facility] Comment on above: Performed By: #### C MP, TSH, LIPID #### [facility] [address] [address] [address] Elmer Hopkins Potassium [Moles/Vol] 4.0 mmol/L Normal 3.5-5.1 [facility] Comment on above: Performed By: #### C MP, TSH, LIPID #### [facility] [address] [address] [address] Elmer Hopkins Protein [Mass/Vol] 7.1 g/dL Normal 6.4-8.2 [facility] Comment on above: Performed By: #### C MP, TSH, LIPID #### [facility] [address] [address] [address] Elmer Hopkins Sodium [Moles/Vol] 142 mmol/L Normal 136-145 [facility] Comment on above: Performed By: #### C MP, TSH, LIPID #### [facility] [address] [address] [address] Elmer Hopkins Urea nitrogen [Mass/Vol] 10.0 mg/dL Normal 7.0-18.0 [facility] Comment on above: Performed By: #### C MP, TSH, LIPID #### [facility] [address] [address] [address] Elmer Hopkins Urea nitrogen/Creatinine [Mass ratio] 10.6 mg/mg Normal [facility] Comment on above: Performed By: #### C MP, TSH, LIPID #### [facility] [address] [address] [address] Elmer Hopkins TSHon 08-13-2021 TSH 2.083 uIU/mL Normal 0.358-3.740 [facility] Comment on above: Performed By: #### C MP, TSH, LIPID #### [facility] [address] [address] [address] Elmer Hopkins AMYLASEon 10-15-2020 Amylase [Catalytic activity/Vol] 59 U/L Normal 31-110 [facility] Comment on above: Performed By: #### C MADM, LIPA, KEMAR, CMP ####[facility] J[address] [place] CARDIAC STEFFI ADMITon 021 CK [Catalytic activity/Vol] 80 U/L Normal 30-135 [facility] Comment on above: Performed By: #### C MADM, LIPA, KEMAR, CMP ####[facility] [address] [place] CK.MB [Mass/Vol] ng/mL Normal <=2.37 [facility] [place] Comment on above: Performed By: #### C MADM, LIPA, KEMAR, CMP ####[facility] I[address] [place] HSTROP <4.0 Normal 4.0-35.5 [facility] Comment on above: Result Comment: CUT- OFF POINTS HAVE BEEN ESTABLISHED BASED ON THE FOURTH UNIVERSAL DEFINITIONS OF MYOCARDIAL INFARCTION. THE UPPER REFERENCE LIMIT (URL) OF TROPONIN, DEFINED THE 99TH PERCENTILE OF cTnI DISTRIBUTION IN A REFERENCE POPULATION, HAS BEEN CONFIRMED THE DECISION THRESHOLD FOR [place] DIAGNOSIS. Performed By: #### C GENESIS SUMMERS AMY, CMP ####[facility] [address] [id number] [place] ALLI 30.0 ng/mL Normal <=61.5 [facility] Comment on above: Performed By: #### C GENESIS SUMMERS AMY, CMP ####[facility] [address] [place] [address] [place] CBC AUTO DIFFon 10-15-2020 BASO # 0.1 103/ul Normal 0.0-0.1 [facility] Comment on above: Performed By: #### C BC ####[facility] [address] [place] [address] [place] Basophils/100 WBC (Bld) 0.4 % Normal 0.2-2.0 [facility] Comment on above: Performed By: #### C BC ####[facility] [address] [place] [address] [place] EO # 0.8 103/ul Critically high 0.0-0.7 [facility] Comment on above: Performed By: #### C BC ####[facility] [address] [place] [address] [place] Eosinophils/100 WBC (Bld) 6.1 % Normal 0.9-7.0 [facility] Comment on above: Performed By: #### C BC ####[facility] [address] [place] [address] [place] Erythrocyte distribution width (RBC) [Ratio] 13.2 % Normal 11.0-15.0 [facility] Comment on above: Performed By: #### C BC ####[facility] [address] [place] [address] [place] Hematocrit (Bld) [Volume fraction] 44.2 % Normal 36.0-48.0 [facility] Comment on above: Performed By: #### C BC ####[facility] [address] [id number] Hemoglobin (Bld) [Mass/Vol] 14.8 g/dL Normal 12.0-16.0 [facility] Comment on above: Performed By: #### C BC ####[facility] [address] [address] IG # 0.05 10e3/ul Critically high 0.00-0.03 [facility] Comment on above: Performed By: #### C BC ####[facility] C[address]vx[address]zp[address] [place] IG % 0.4 % Normal 0.0-0.5 [facility] Comment on above: Performed By: #### C BC ####[facility] [address] [place] [address] [place] LYMPH # 3.2 103/ul Normal 1.2-3.8 [facility] Comment on above: Performed By: #### C BC ####[facility] [address] [place] [address] [place] Lymphocytes/100 WBC (Bld) 24.1 % Normal 20.5-60.0 [facility] Comment on above: Performed By: #### C BC ####[facility] [address] [place] [address] [place] MANUAL DIFF REQ NO Normal [facility] Comment on above: Performed By: #### C BC ####[facility] [address] [id number] MCH (RBC) [Entitic mass] 30.9 pg Normal 26.7-34.0 [facility] Comment on above: Performed By: #### C BC ####[facility] [address] [place], [place] [id number] MCHC (RBC) [Mass/Vol] 33.5 g/dL Normal 29.9-35.2 [facility] Comment on above: Performed By: #### C BC ####[facility] [address] [place] [address] [place] MCV (RBC) [Entitic vol] 92.3 fL Normal 81.0-99.0 [facility] Comment on above: Performed By: #### C BC ####[facility] [address] [place] [address] [place] MONO # 1.0 103/ul Critically high 0.3-0.8 [facility] Comment on above: Performed By: #### C BC ####[facility] [address] [place] [address] [place] Monocytes/100 WBC (Bld) 7.3 % Normal 1.7-12.0 [facility] Comment on above: Performed By: #### C BC ####[facility] [address] [place] [address] [place] NEUT # 8.2 103/ul Critically high 1.4-6.5 [facility] Comment on above: Performed By: #### C BC ####[facility] [address] [place] [address] [place] Neutrophils/100 WBC (Bld) 61.7 % Normal 43.0-75.0 [facility] Comment on above: Performed By: #### C BC ####[facility] [address] [place] [address] [place] Platelet mean volume (Bld) [Entitic vol] 9.7 fL Normal 9.5-13.5 [facility] Comment on above: Performed By: #### C BC ####[facility] [address] [place] [address] [place] PLT 414 103/ul Normal 150-450 [facility] Comment on above: Performed By: #### C BC ####[facility] [address] [place], [place] [address] [place] RBC 4.79 106/ul Normal 4.20-5.40 [facility] Comment on above: Performed By: #### C BC ####[facility] [address] [place], [place] [address] [place] WBC 13.3 103/ul Critically high 4.0-11.0 [facility] [place] Comment on above: Performed By: #### C ####[facility] [address] [place], [place] [address] ABD/PELVIS WO CONon 10-15 CT [...] howeve (more content not included)... Normal [facility] LIPASEon 10-15-2020 Lipase [Catalytic activity/Vol] 70.0 U/L Normal 23.0-300.0 [facility] Comment on above: Performed By: #### C GENESIS SUMMERS KEMAR, CMP ####[facility] [address] [place], [place] [address]Uzszzj [place] URon 10-15-2020 , QUAL Negative Normal NEGATIVE [facility] Comment on above: Performed By: #### P REGU #### [facility] [address] [place], [place] [address] [place] PROF 14(COMP METB)on 021 Albumin [Mass/Vol] 4.1 g/dL Normal 3.5-5.0 [facility] Comment on above: Performed By: #### C GENESIS SUMMERS KEMAR, CMP #### [facility] [address] [id number] [place] Albumin/Globulin [Mass ratio] 1.0 {ratio} Normal [facility] Comment on above: Performed By: #### C MELINA, BILLYA, KEMAR, CMP #### [facility] [address] [address] [place] ALP [Catalytic activity/Vol] 93 U/L Normal 38-126 [facility] Comment on above: Performed By: #### C MELINA, GENESIS, KEMAR, CMP #### [facility] [address] [id number] [place] ALT [Catalytic activity/Vol] 90 U/L Critically high 9-52 [facility] Comment on above: Performed By: #### C MELINA, LIPA, KEMAR, CMP #### [facility] [address] [place], [place] [address] [place] Anion gap [Moles/Vol] 13.8 mmol/L Normal [facility] Comment on above: Performed By: #### C MELINA, LIPA, KEMAR, CMP #### [facility] [address] [id number] [place] AST [Catalytic activity/Vol] 37 U/L Critically high 14-36 [facility] Comment on above: Performed By: #### C BILLY SUMMERSA, KEMAR, CMP #### [facility] [address] [place] [address] [place] Bilirubin [Mass/Vol] 0.3 mg/dL Normal 0.2-1.3 [facility] Comment on above: Performed By: #### C MADM, LIPA, KEMAR, CMP #### [facility] [address] [place] [address] [place] Calcium [Mass/Vol] 9.4 mg/dL Normal 8.4-10.2 [facility] Comment on above: Performed By: #### C MADM, LIPA, KEMAR, CMP #### [facility] [address] [place] [address] [place] Chloride [Moles/Vol] 104 mmol/L Normal 98-107 [facility] Comment on above: Performed By: #### C MADM, LIPA, KEMAR, CMP #### [facility] [address] [place] [address] [place] CO2 [Moles/Vol] 28.0 mmol/L Normal 22.0-30.0 [facility] [place] Comment on above: Performed By: #### C MADCasa, LIPA, KEMAR, CMP #### [facility] [address] [place] [address] [place] Creatinine [Mass/Vol] 0.80 mg/dL Normal 0.52-1.04 [facility] Comment on above: Performed By: #### C MADM, LIPA, KEMAR, CMP #### [facility] [address] [place] [address] [place] EGFR-AF SURINAMESE >60 Normal >=60 [facility] [place] Comment on above: Performed By: #### C MADM, LIPA, KEMAR, CMP #### [facility] [address] [place] [address] [place] EGFR-NON AF SURINAMESE >60 Normal >=60 [facility] Comment on above: Performed By: #### C MADM, LIPA, KEMAR, CMP #### [facility] [address] [place] [address] [place] Globulin (S) [Mass/Vol] 4.0 g/dL Normal [facility] Comment on above: Performed By: #### C GENESIS SUMMERS AMY, CMP #### [facility] [address] [address] [place] Glucose [Mass/Vol] 86 mg/dL Normal 74-106 [facility] Comment on above: Performed By: #### C GENESIS SUMMERS AMY, CMP #### [facility] [address] [address] [place] Potassium [Moles/Vol] 3.8 mmol/L Normal 3.4-5.0 [facility] Comment on above: Performed By: #### C GENESIS SUMMERS AMY, CMP #### [facility] [address] [place] [address] [place] Protein [Mass/Vol] 8.1 g/dL Normal 6.1-8.2 [facility] Comment on above: Performed By: #### C GENESIS SUMMERS AMY, CMP #### [facility] [address] [place] [address] [place] Sodium [Moles/Vol] 142 mmol/L Normal 137-145 [facility] Comment on above: Performed By: #### C GENESIS SUMMERS AMY, CMP #### [facility] [address] [place] [address] [place] Urea nitrogen [Mass/Vol] 11.0 mg/dL Normal 7.0-17.0 [facility] Comment on above: Performed By: #### C GENESIS SUMMERS AMY, CMP #### [facility] [address] [id number] [place] Urea nitrogen/Creatinine [Mass ratio] 13.8 mg/mg Normal [facility] Comment on above: Performed By: #### C GENESIS SUMMERS AMY, CMP #### [facility] [address] [place], [place] [address] [place] ER URINE PROFILEon 1 Bilirubin Ql (U) Negative Normal NEGATIVE [facility] [place] Comment on above: Performed By: #### E RUR #### [facility] [address] [place] [address] [place] Clarity (U) CLEAR Normal CLEAR [facility] Comment on above: Performed By: #### E RUR #### [facility] [address] [place] [address] [place] Color (U) YELLOW Normal YELLOW [facility] Comment on above: Performed By: #### E RUR #### [facility] [address] [place] [address] [place] ERUAHD A micrscopic examination will be performed if indicated. Normal [facility] Comment on above: Performed By: #### E RUR #### [facility] [address] [place] [address] [place] Glucose Ql (U) Negative Normal NEGATIVE [facility] Comment on above: Performed By: #### E RUR #### [facility] [address] [place] [address] [place] Hemoglobin Ql (U) Negative Normal NEGATIVE [facility] Comment on above: Performed By: #### E RUR #### [facility] [address] [place] [address] [place] Ketones Ql (U) TRACE Abnormal NEGATIVE [facility] Comment on above: Performed By: #### E RUR #### [facility] [address] [place] [address] [place] LEUKOCYTES Negative Normal NEGATIVE [facility] Comment on above: Performed By: #### E RUR #### [facility] [address] [place] [address] [place] Nitrite Ql (U) Negative Normal NEGATIVE [facility] Comment on above: Performed By: #### E RUR #### [facility] [address] [place] [address] [place] pH (U) 6.0 [pH] Normal 5-9 [facility] Comment on above: Performed By: #### E RUR #### [facility] [address] [place] [address] [place] SPEC GRAVITY 1.025 Normal 1.005-<=1.025 [facility] Comment on above: Performed By: #### E RUR #### [facility] [address] [place] [address] [place] UA PROTEIN Negative Normal NEGATIVE/ TRACE [facility] Comment on above: Performed By: #### E RUR #### [facility] [address] [place] [address] [place] UR MICRO IND NOT INDICATED Normal [facility] Comment on above: Performed By: #### E RUR #### [facility] [address] [place] [address] [place] Urobilinogen Qn (U) 0.2 {Rachel'U}/dL Normal 0.2 - 1. 0 [facility] Comment on above: Performed By: #### E RUR #### [facility] [address] [place] [address] [place] CBCon 09-03-2020 Erythrocyte distribution width (RBC) [Ratio] 12.4 % Normal 11.8-14.4 [facility] Comment on above: Performed By: #### C BC, HCG, CP #### [facility] [address] [place] [address] [place] [address] Metabolic Specialist: Josué Monae MD #### HIVCMB, PHEP #### [place] [id number] Metabolic Specialist: Thang Nielsen MD Hematocrit (Bld) [Volume fraction] 47.9 % High 36.3-47.1 [facility] Comment on above: Performed By: #### C BC, HCG, CP #### [facility] [address] [place] [address] Metabolic Specialist: Josué Monae MD #### HIVCMB, PHEP #### [address] [id number] Metabolic Specialist: Thang Nielsen MD Hemoglobin (Bld) [Mass/Vol] 15.6 g/dL High 11.9-15.1 [facility] Comment on above: Performed By: #### C BC, HCG, CP #### [address] [place], [place] [id number] Metabolic Specialist: Josué Monae MD #### HIVCMB, PHEP #### [address] [id number] Metabolic Specialist: Thang Nielsen MD MCH (RBC) [Entitic mass] 30.6 pg Normal 25.2-33.5 [facility] Comment on above: Performed By: #### C BC, HCG, CP #### [address] [place] [id number] Metabolic Specialist: Josué Monae MD #### HIVCMB, PHEP #### [address] [id number] Metabolic Specialist: Thang Nielsen MD MCHC (RBC) [Mass/Vol] 32.6 g/dL Normal 28.4-34.8 [facility] Comment on above: Performed By: #### C BC, HCG, CP #### [address] [place] [id number] Metabolic Specialist: Josué Monae MD #### HIVCMB, PHEP #### [address] [place] [address] Metabolic Specialist: Thang Nielsen MD MCV (RBC) [Entitic vol] 94.1 fL Normal 82.6-102.9 [facility] Comment on above: Performed By: #### C BC, HCG, CP #### [address] [place], [place] [id number] Metabolic Specialist: Josué Monae MD #### HIVCMB, PHEP #### [address] [id number] Metabolic Specialist: Thang Nielsen MD NRBC Automated 0.0 per 100 WBC Normal 0.0 [facility] Comment on above: Performed By: #### C BC, HCG, CP #### [facility] [address] [place] [address] [place], [place] [id number] Metabolic Specialist: Josué Monae MD #### HIVCMB, PHEP #### [address] [place], [place] [id number] Metabolic Specialist: Thang Nielsen MD Platelet mean volume (Bld) [Entitic vol] 9.8 fL Normal 8.1-13.5 [facility] Comment on above: Performed By: #### C BC, HCG, CP #### [facility] [address] [place] [address] [place] [id number] Metabolic Specialist: Josué Monae MD #### HIVCMB, PHEP #### [address] [id number] Metabolic Specialist: Thang Nielsen MD Platelets (Bld) [#/Vol] 394 10*3/uL Normal 138-453 [facility] Comment on above: Performed By: #### C BC, HCG, CP #### [facility] [address] [place] [address] [place] [id number] Metabolic Specialist: Josué Monae MD #### HIVCMB, PHEP #### [address] [address] Metabolic Specialist: Thang Nielsen MD RBC (Bld) [#/Vol] 5.09 10*6/uL Normal 3.95-5.11 [facility] Comment on above: Performed By: #### C BC, HCG, CP #### [facility] [address] [place] [address] [place], [place] [id number] Metabolic Specialist: Josué Monae MD #### HIVCMB, PHEP #### [address] [place], [place] [id number] Metabolic Specialist: Thang Nielsen MD WBC (Bld) [#/Vol] 9.1 10*3/uL Normal 3.5-11.3 [facility] Comment on above: Performed By: #### C BC, HCG, CP #### [facility] [address] [place] [address] Metabolic Specialist: Josué Monae MD #### HIVCMB, PHEP #### [facility] [employer] [address] [place], [place] [id number] Metabolic Specialist: Thang Nielsen MD CBCOrdered By: Channing Yin on 09-03-2020 Hematocrit (Bld) [Volume fraction] 47.9 % High 36.3 - 47.1 % [employer]) Phone: Hemoglobin.gastrointe stinal spec 1 Ql (Stl) 15.6 g/dL High 11.9 - 15.1 g/dL [employer]) Phone: Interpretation and review of laboratory results Abnormal [employer] Phone: MCH (RBC) [Entitic mass] 30.6 pg 25.2 - 33.5 pg [employer]) Phone: MCHC (RBC) [Mass/Vol] 32.6 g/dL 28.4 - 34.8 g/dL [employer]) Phone: MCV (RBC) [Entitic vol] 94.1 fL 82.6 - 102.9 fL [employer]) Phone: NRBC Automated 0.0 0.0 per 100 WBC [employer]) Phone: Platelet distribution width (Bld) [Ratio] 12.4 % 11.8 - 14.4 % [employer] Phone: Platelet mean volume (Bld) [Entitic vol] 9.8 fL 8.1 - 13.5 fL [employer] Phone: Platelets (Bld) [#/Vol] 394 10*3/uL [facility] [employer] Phone: RBC (Bld) [#/Vol] 5.09 10*6/uL 3.95 - 5.1 1 m/uL [facility] [employer] Phone: WBC (Bld) [#/Vol] 9.1 10*3/uL [facility] [facility] Phone: [facility] Phone: Comp Metabolic Profon 2020 (cont.) Normal [facility] Comment on above: Result Comment: Aver age GFR for 30-39 years old: 107 mL/min/1.73sq m Chronic Kidney Disease: <60 mL/min/1.73sq m Kidney failure: <15 mL/min/1.73sq m eGFR calculated using average adult body mass. Additional eGFR calculator available at: http://www.Infogram/multiple_crcl_2011.htm Performed By: #### C BC, HCG, CP #### [facility] [address] [place] [address] Metabolic Specialist: Josué Monae MD #### HIVCMB, PHEP #### [address] [place] [address] Metabolic Specialist: Thang Nielsen MD Albumin [Mass/Vol] 4.2 g/dL Normal 3.5-5.2 [facility] Comment on above: Performed By: #### C BC, HCG, CP #### [facility] [address] [place] [address] Metabolic Specialist: Josué Monae MD #### HIVCMHayley, PHEP #### [address] [address] Metabolic Specialist: Thang Nielsen MD Albumin/Glob Ratio 1.2 Normal 1.0-2.5 [facility] Comment on above: Performed By: #### C BC, HCG, CP #### [facility] [address] [place], [place] [id number] Metabolic Specialist: Josué Monae MD #### HIVCMB, PHEP #### [address] [place], [place] [id number] Metabolic Specialist: Thang Nielsen MD Alkaline Phos 116 U/L High 35-104 [facility] Comment on above: Performed By: #### C BC, HCG, CP #### [facility] [address] [place], [place] [id number] Metabolic Specialist: Josué Monae MD #### HIVCMB, PHEP #### [address] [place], [place] [id number] Metabolic Specialist: Thang Nielsen MD ALT [Catalytic activity/Vol] 96 U/L High 5-33 [facility] Comment on above: Performed By: #### C BC, HCG, CP #### [facility] [address] [place], [place] [id number] Metabolic Specialist: Josué Monae MD #### HIVCMHayley, PHEP #### [address] [place] [address] Metabolic Specialist: Thang Nielsen MD Anion gap [Moles/Vol] 11 mmol/L Normal 9-17 [facility] Comment on above: Performed By: #### C BC, HCG, CP #### [facility] [address] [place], [place] [phone] Metabolic Specialist: Josué Monae MD #### HIVCMB, PHEP #### [address] [address] Metabolic Specialist: Thang Nielsen MD AST [Catalytic activity/Vol] 61 U/L High <32 [facility] Comment on above: Performed By: #### C BC, HCG, CP #### [facility] [address] [place], [place] [id number] Metabolic Specialist: Josué Monae MD #### HIVCMB, PHEP #### [address] [place], [place] [phone] Metabolic Specialist: Thang Nielsen MD Bilirubin [Mass/Vol] 1.47 mg/dL High 0.3-1.2 [facility] Comment on above: Performed By: #### C BC, HCG, CP #### [facility] [address] [place] [address] Metabolic Specialist: Josué Monae MD #### HIVCMB, PHEP #### [address] [id number] Metabolic Specialist: Thang Nielsen MD BUN/CRE Ratio 17 Normal 9-20 [facility] Comment on above: Performed By: #### C BC, HCG, CP #### [facility] [address] [place] [address] Metabolic Specialist: Josué Monae MD #### HIVCMB, PHEP #### [address] [id number] Metabolic Specialist: Thang Nielsen MD Calcium [Mass/Vol] 9.7 mg/dL Normal 8.6-10.4 [facility] Comment on above: Performed By: #### C BC, HCG, CP #### [facility] [address] [place] [address] [place] [address] Metabolic Specialist: Josué Monae MD #### HIVCMB, PHEP #### [address] [id number] Metabolic Specialist: Thang Nielsen MD Chloride [Moles/Vol] 104 mmol/L Normal 98-107 [facility] Comment on above: Performed By: #### C BC, HCG, CP #### [address] [place], [place] 7502483 Metabolic Specialist: Josué Monae MD #### HIVCMB, PHEP #### [address] [phone] Metabolic Specialist: Thang Nielsen MD CO2 [Moles/Vol] 26 mmol/L Normal 20-31 [facility] Comment on above: Performed By: #### C BC, HCG, CP #### [address] [place], [place] [id number] Metabolic Specialist: Josué Monae MD #### HIVCMB, PHEP #### [address] [id number] Metabolic Specialist: Thang Nielsen MD Creatinine [Mass/Vol] 0.76 mg/dL Normal 0.50-0.90 [facility] Comment on above: Performed By: #### C BC, HCG, CP #### [address] [place], [place] 3562783 Metabolic Specialist: Josué Monae MD #### HIVCMB, PHEP #### [address] [address] Metabolic Specialist: Thang Nielsen MD GFR, Amer >60 Normal >60 [facility] Comment on above: Performed By: #### C BC, HCG, CP #### [facility] [address] [place] [address] [address] [place], [place] [phone] Metabolic Specialist: Josué Monae MD #### HIVCMB, PHEP #### [address] [id number] Metabolic Specialist: Thang Nielsen MD GFR,non Amer >60 Normal >60 [facility] Comment on above: Performed By: #### C BC, HCG, CP #### [facility] [address] [place] [address] [address] [place], [place] [phone] Metabolic Specialist: Josué Monae MD #### HIVCMB, PHEP #### [address] [place], [place] [phone] Metabolic Specialist: Thang Nielsen MD Glucose [Mass/Vol] 112 mg/dL High 70-99 [facility] Comment on above: Performed By: #### C BC, HCG, CP #### [address] [place], [place] [phone] Metabolic Specialist: Josué Monae MD #### HIVCMB, PHEP #### [address] [place], [place] 1481708 Metabolic Specialist: Thang Nielsen MD Potassium [Moles/Vol] 4.0 mmol/L Normal 3.7-5.3 [facility] Comment on above: Performed By: #### C BC, HCG, CP #### [address] [place] [phone] Metabolic Specialist: Josué Monae MD #### HIVCMB, PHEP #### [address] [phone] Metabolic Specialist: Thang Nielsen MD Protein [Mass/Vol] 7.6 g/dL Normal 6.4-8.3 [facility] Comment on above: Performed By: #### C BC, HCG, CP #### [address] [place] [address] Metabolic Specialist: Josué Monae MD #### HIVCMB, PHEP #### [address] [place], [place] [phone] Metabolic Specialist: Thang Nielsen MD Sodium [Moles/Vol] 141 mmol/L Normal 135-144 [facility] Comment on above: Performed By: #### C BC, HCG, CP #### [address] [place] [address] Metabolic Specialist: Josué Monae MD #### HIVCMB, PHEP #### [facility] [address] [place] [address] Metabolic Specialist: Thang Nielsen MD Staging: Normal [facility] Comment on above: Result Comment: Stag e 1: Some kidney damage normal GFR Stage 2: Mild kidney damage GFR 60-89 Stage 3: Moderate kidney damage GFR 30-59 Stage 4: Severe kidney damage GFR 15-29 Stage 5: Severe kidney damage GFR <15 ESRD - chronic treatment by dialysis or transplant Performed By: #### C BC, HCG, CP #### [facility] [address] [place] [address] Metabolic Specialist: Josué Monae MD #### HIVCMB, PHEP #### [facility] [address] [place] [address] Metabolic Specialist: Thang Nielsen MD Urea nitrogen [Mass/Vol] 13 mg/dL Normal 6-20 [facility] Comment on above: Performed By: #### C BC, HCG, CP #### [facility] [address] [place] [address] Metabolic Specialist: Josué Monae MD #### HIVCMB, PHEP #### [facility] [address] [place] [address] Metabolic Specialist: Thang Nielsen MD Comprehensive Metabolic Pane lOrdered By: Channing Yin on 09-03-2020 Albumin [Mass/Vol] 4.2 g/dL 3.5 - 5.2 g/dL [facility] [employer] Work Phone: Albumin/Globulin [Mass ratio] 1.2 {ratio} [facility] [employer] Phone: ALP (Bld) [Catalytic activity/Vol] 116 U/L High 35 - 104 U/L [facility] Phone: ALT [Catalytic activity/Vol] 96 U/L High 5 - 33 U/L [facility] [employer] Phone: Anion gap [Moles/Vol] 11 mmol/L 9 - 17 mmol/L [facility] Phone: AST [Catalytic activity/Vol] 61 U/L High <32 [facility] Phone: Bilirubin [Mass/Vol] 1.47 mg/dL High 0.3 - 1 .2 mg/dL [facility] Phone: Calcium [Mass/Vol] 9.7 mg/dL 8.6 - 10. 4 mg/dL [facility] Phone: Chloride [Moles/Vol] 104 mmol/L 98 - 10 7 mmol/L [facility] Phone: CO2 [Moles/Vol] 26 mmol/L 20 - 31 mmol/L [facility] Phone: Creatinine [Mass/Vol] 0.76 mg/dL 0.50 - 0.90 mg/dL [facility] Phone: Free PSA/Total PSA [Mass fraction] 7.6 g/dL 6.4 - 8.3 g/dL [facility] Phone: GFR >60 >60 mL/min [employer] Phone: GFR Non- >60 >60 mL/min [facility] Phone: Glucose [Mass/Vol] 112 mg/dL High 70 - 99 mg/dL [facility] [employer] Work Phone: Interpretation and review of laboratory results Abnormal [facility] Phone: Potassium [Moles/Vol] 4.0 mmol/L 3.7 - 5.3 mmol/L [facility] Phone: Sodium [Moles/Vol] 141 mmol/L 135 - 144 mmol/L [facility] Phone: Urea nitrogen (BldV) [Mass/Vol] 13 mg/dL 6 - 20 mg/dL [facility] Phone: Urea nitrogen/Creatinine (Bld) [Mass ratio] 17 [facility] Phone: [facility] Phone: HCG Qualitative, SerumOrdere d By: Channing Yin on 09-03-2020 hCG Qual Negative NEGATIVE [facility] Phone: Comment on above: Specimens with hCG l evels near the threshold of the test (25 mIU/mL) may give a negative or indeterminate result. In such cases, another test should be performed with a new specimen in 48-72 hours. If early is suspected clinically in this setting, correlation with quantitative serum b-hCG level is suggested. [employer] has confirmed the use of plasma for this test. This has not been cleared or approved by the U.S. Food and Drug Administration. The FDA has determined that such clearance is not necessary. [employer] [facility]) Phone: HCG Screen, Bloodon 09-04-19 21 HCG Screen, Blood Negative Normal NEG [facility] Comment on above: Result Comment: Spec imens with hCG levels near the threshold of the test (25 mIU/mL) may give a negative or indeterminate result. In such cases, another test should be performed with a new specimen in 48-72 hours. If early is suspected clinically in this setting, correlation with quantitative serum b-hCG level is suggested. [employer] has confirmed the use of plasma for this test. This has not been cleared or approved by the U.S. Food and Drug Administration. The FDA has determined that such clearance is not necessary. Performed By: #### C BC, HCG, CP #### [facility] [address] [place] [address] Metabolic Specialist: Josué Monae MD #### HIVCMB, PHEP #### [address] [place] [address] Metabolic Specialist: Thang Nielsen MD HIV Ag/Abon 09-03-2020 HIV Ag/Ab Non-Reactive Normal NR [facility] Comment on above: Result Comment: No l aboratory evidence of HIV infection. If acute HIV infection is suspected, consider testing for HIV-1 RNA. Performed By: #### C BC, HCG, CP #### [address] [place] [address] Metabolic Specialist: Josué Monae MD #### HIVCMB, PHEP #### [address] [id number] Metabolic Specialist: Thang Nielsen MD HIV ScreenOrdered By: Channing Yin on 09-03-2020 HIV Ag/Ab Non-Reactive NONREACTIVE [facility] Work Phone: Comment on above: No laboratory eviden ce of HIV infection. If acute HIV infection is suspected, consider testing for HIV-1 RNA. [facility] Work Phone: Hepatitis Acute [facility] 09-03 Hep A Ab,IgM Non-Reactive Normal NR [facility] Comment on above: Performed By: #### C BC, HCG, CP #### [address] [place] [address] Metabolic Specialist: Josué Monae MD #### HIVCMB, PHEP #### [address] [address] Metabolic Specialist: Thang Nielsen MD Hep B Core Ab,IgM Non-Reactive Normal NR [facility] Comment on above: Performed By: #### C BC, HCG, CP #### [address] [place] [address] Metabolic Specialist: Josué Monae MD #### HIVCMB, PHEP #### [address] [address] Metabolic Specialist: Thang Nielsen MD Hep B Surf Ag Non-Reactive Normal NR [facility] Comment on above: Performed By: #### C BC, HCG, CP #### [address] [place] [address] Metabolic Specialist: Josué Monae MD #### HIVCMB, PHEP #### [facility] [address] [place], [place] [phone] Metabolic Specialist: Thang Nielsen MD Hep C Ab Reactive Abnormal NR [facility] Comment on above: Result Comment: The hepatitis [...] By: #### C BC, HCG, CP #### [address] [place] [address] Metabolic Specialist: Josué Monae MD #### HIVCMB, PHEP #### [address] [place], [place] [id number] Metabolic Specialist: Thang Nielsen MD Hepatitis Panel, AcuteOrdere d By: Channing Yin on 09-03-2020 HAV IgM IA Qn (S) Non-Reactive NONREACTIVE [facility] Work Phone: Hep B Core Ab, IgM Non-Reactive NONREACTIVE [facility] Work Phone: Hepatitis B Surface Ag Non-Reactive NONREACTIVE [facility] Work Phone: Hepatitis C Ab Reactive Abnormal NONREACTIVE [facility] Work Phone: Comment on above: The hepatitis [...] Interpretation and review of laboratory results Abnormal [facility] Work Phone: [employer] [facility]) Phone: Laboratory - Chemistry and C hemistry - challengeOrdered By: Channing Yin on 09-03-2020 GFR/1.73 sq M.predicted MDRD (S/P/Bld) [Vol rate/Area] [facility]) Phone: Comment on above: Average GFR for 30-3 9 years old: 107 mL/min/1.73sq m Chronic Kidney Disease: <60 mL/min/1.73sq m Kidney failure: <15 mL/min/1.73sq m eGFR calculated using average adult body mass. Additional eGFR calculator available at: http://www.Infogram/TV Pixie_crcl_2011.htm Stage 1: Some kidney damage normal GFR Stage 2: Mild kidney damage GFR 60-89 Stage 3: Moderate kidney damage GFR 30-59 Stage 4: Severe kidney damage GFR 15-29 Stage 5: Severe kidney damage GFR <15 ESRD - chronic treatment by dialysis or transplant HCV RNA,Quant,PCRon 11-19-19 20 HCV RNA,Quant,PCR Specimen [...] Health Department Report Status FINAL 11/19/2019 Normal [facility] Comment on above: Performed By: #### H CVQ #### [facility] [place] [address] Metabolic Specialist: Thang Nielsen MD [facility] [address] [place] [address] Metabolic Specialist: Arnoldo Soni MD CBCon 11-15-2019 Erythrocyte distribution width (RBC) [Ratio] 12.6 % Normal 11.8-14.4 [facility] Comment on above: Performed By: #### C BC, CP, HCG #### [address] [place], [place] [id number] Metabolic Specialist: Arnoldo Soni MD #### PHEP, HIVCMB #### [address] [id number] Metabolic Specialist: Tahng Nielsen MD Hematocrit (Bld) [Volume fraction] 45.5 % Normal 36.3-47.1 [facility] Comment on above: Performed By: #### C BC, CP, HCG #### [address] [place] [phone] Metabolic Specialist: Arnoldo Soni MD #### PHEP, HIVCMB #### [address] [address] Metabolic Specialist: Thang Nielsen MD Hemoglobin (Bld) [Mass/Vol] 14.7 g/dL Normal 11.9-15.1 [facility] Comment on above: Performed By: #### C BC, CP, HCG #### [address] [place] [phone] Metabolic Specialist: Arnoldo Soni MD #### PHEP, HIVCMB #### [address] [address] Metabolic Specialist: Thang Nielsen MD MCH (RBC) [Entitic mass] 31.3 pg Normal 25.2-33.5 [facility] Comment on above: Performed By: #### C BC, CP, HCG #### [address] [place], [place] 2575583 Metabolic Specialist: Arnoldo Soni MD #### PHEP, HIVCMB #### [address] [phone] Metabolic Specialist: Thang Nielsen MD MCHC (RBC) [Mass/Vol] 32.3 g/dL Normal 28.4-34.8 [facility] Comment on above: Performed By: #### C BC, CP, HCG #### [facility] [address] [place] [address] [address] [place] [phone] Metabolic Specialist: Arnoldo Soni MD #### PHEP, HIVCMB #### [address] [id number] Metabolic Specialist: Thang Nielsen MD MCV (RBC) [Entitic vol] 97.0 fL Normal 82.6-102.9 [facility] Comment on above: Performed By: #### C BC, CP, HCG #### [address] [place] [phone] Metabolic Specialist: Arnoldo Soni MD #### PHEP, HIVCMB #### [address] [id number] Metabolic Specialist: Thang Nielsen MD NRBC Automated 0.0 per 100 WBC Normal 0.0 [facility] Comment on above: Performed By: #### C BC, CP, HCG #### [facility] [address] [place] [address] [address] [place] [phone] Metabolic Specialist: Arnoldo Soni MD #### PHEP, HIVCMB #### [address] [address] Metabolic Specialist: Thang Nielsen MD Platelet mean volume (Bld) [Entitic vol] 10.3 fL Normal 8.1-13.5 [facility] Comment on above: Performed By: #### C BC, CP, HCG #### [facility] [address] [place] [address] [place] [phone] Metabolic Specialist: Arnoldo Soni MD #### PHEP, HIVCMB #### [address], [place] [phone] Metabolic Specialist: Thang Nielsen MD Platelets (Bld) [#/Vol] 434 10*3/uL Normal 138-453 [facility] Comment on above: Performed By: #### C BC, CP, HCG #### [facility] [address] [place] [address] [address]. [place], [place] [phone] Metabolic Specialist: Arnoldo Soni MD #### PHEP, HIVCMB #### [address] [id number] Metabolic Specialist: Thang Nielsen MD RBC (Bld) [#/Vol] 4.69 10*6/uL Normal 3.95-5.11 [facility] Comment on above: Performed By: #### C BC, CP, HCG #### [address] [place], [place] [phone] Metabolic Specialist: Arnoldo Soni MD #### PHEP, HIVCMB #### [address] [address] Metabolic Specialist: Thang Nielsen MD WBC (Bld) [#/Vol] 7.9 10*3/uL Normal 3.5-11.3 [facility] Comment on above: Performed By: #### C BC, CP, HCG #### [facility] [address] [place] [address] [place] [phone] Metabolic Specialist: Arnoldo Soni MD #### PHEP, HIVCMB #### [address] [address] Metabolic Specialist: Thang Nielsen MD Erythrocyte distribution width (RBC) [Ratio] 12.6 % 11.8 - 14.4 % [place], [place] Hematocrit (Bld) [Volume fraction] 45.5 % 36.3 - 47.1 % [place] Hemoglobin (Bld) [Mass/Vol] 14.7 g/dL 11.9 - 15.1 g/dL [place] MCH (RBC) [Entitic mass] 31.3 pg 25.2 - 33.5 pg [place] MCHC (RBC) [Mass/Vol] 32.3 g/dL 28.4 - 34.8 g/dL [place] MCV (RBC) [Entitic vol] 97.0 fL 82.6 - 102.9 fL [place] Platelet mean volume (Bld) [Entitic vol] 10.3 fL 8.1 - 13.5 fL [place], [place] Platelets (Bld) [#/Vol] 434 10*3/uL [place] RBC (Bld) [#/Vol] 4.69 10*6/uL 3.95 - 5.1 1 m/uL [place] WBC (Bld) [#/Vol] 0.0 10*3/uL 0.0 per 10 0 WBC [place] WBC (Bld) [#/Vol] 7.9 10*3/uL [place] Comp Metabolic Profon 2019 (cont.) Normal [facility] Comment on above: Result Comment: Aver age GFR for 30-39 years old: 107 mL/min/1.73sq m Chronic Kidney Disease: <60 mL/min/1.73sq m Kidney failure: <15 mL/min/1.73sq m eGFR calculated using average adult body mass. Additional eGFR calculator available at: http://www.amazingtunes.[employer] Research/multiple_crcl_2011.htm Performed By: #### C BC, CP, HCG #### [facility] [address] [place] [address] Metabolic Specialist: Arnoldo Soni MD #### [place], HIVCMB #### [address] [address] Metabolic Specialist: Thang Nielsen MD Albumin [Mass/Vol] 3.8 g/dL Normal 3.5-5.2 [facility] Comment on above: Performed By: #### C BC, CP, HCG #### [address] [place], [place] [phone] Metabolic Specialist: Arnoldo Soni MD #### PHEP, HIVCMB #### [address] [id number] Metabolic Specialist: Thang Nielsen MD Albumin/Glob Ratio 1.2 Normal 1.0-2.5 [facility] Comment on above: Performed By: #### C BC, CP, HCG #### [address] [place], [place] 1012983 Metabolic Specialist: Arnoldo Soni MD #### PHEP, HIVCMB #### [address] [id number] Metabolic Specialist: Thang Nielsen MD Alkaline Phos 72 U/L Normal 35-104 [facility] Comment on above: Performed By: #### C BC, CP, HCG #### [address] [place], [place] 6429983 Metabolic Specialist: Arnoldo Soni MD #### PHEP, HIVCMB #### [address] [id number] Metabolic Specialist: Thang Nielsen MD ALT [Catalytic activity/Vol] 72 U/L High 5-33 [facility] Comment on above: Performed By: #### C BC, CP, HCG #### [address] [place], [place] [id number] Metabolic Specialist: Arnoldo Soni MD #### PHEP, HIVCMB #### [address] [address] Metabolic Specialist: Thang Nielsen MD Anion gap [Moles/Vol] 9 mmol/L Normal 9-17 [facility] Comment on above: Performed By: #### C BC, CP, HCG #### [address] [place] [address] Metabolic Specialist: Arnoldo Soni MD #### PHEP, HIVCMB #### [address] [place], [place] [id number] Metabolic Specialist: Thang Nielsen MD AST [Catalytic activity/Vol] 49 U/L High <32 [facility] Comment on above: Performed By: #### C BC, CP, HCG #### [facility] [address] [place] [phone] Metabolic Specialist: Arnoldo Soni MD #### PHEP, HIVCMB #### [address] [place], [place] [phone] Metabolic Specialist: Thang Nielsen MD Bilirubin [Mass/Vol] 0.32 mg/dL Normal 0.3-1.2 [facility] Comment on above: Performed By: #### C BC, CP, HCG #### [address] [place] [phone] Metabolic Specialist: Arnoldo Soni MD #### PHEP, HIVCMB #### [address] [id number] Metabolic Specialist: Thang Nielsen MD BUN/CRE Ratio 18 Normal 9-20 [facility] Comment on above: Performed By: #### C BC, CP, HCG #### [facility] [address] [place] [address] [address] [place] [phone] Metabolic Specialist: Arnoldo Soni MD #### PHEP, HIVCMB #### [address] [place] [address] Metabolic Specialist: Thang Nielsen MD Calcium [Mass/Vol] 9.3 mg/dL Normal 8.6-10.4 [facility] Comment on above: Performed By: #### C BC, CP, HCG #### [facility] [address] [place], [place] 2153183 Metabolic Specialist: Arnoldo Soni MD #### PHEP, HIVCMB #### [address] [place], [place] [id number] Metabolic Specialist: Thang Nielsen MD Chloride [Moles/Vol] 105 mmol/L Normal 98-107 [facility] Comment on above: Performed By: #### C BC, CP, HCG #### [facility] [address] [place], [place] [phone] Metabolic Specialist: Arnoldo Soni MD #### PHEP, HIVCMB #### [address] [id number] Metabolic Specialist: Thang Nielsen MD CO2 [Moles/Vol] 25 mmol/L Normal 20-31 [facility] Comment on above: Performed By: #### C BC, CP, HCG #### [facility] [address] [place], [place] 0614983 Metabolic Specialist: Arnoldo Soni MD #### PHEP, HIVCMB #### [address] [phone] Metabolic Specialist: Thang Nielsen MD Creatinine [Mass/Vol] 0.57 mg/dL Normal 0.50-0.90 [facility] Comment on above: Performed By: #### C BC, CP, HCG #### [facility] [address] [place], [place] 7271383 Metabolic Specialist: Arnoldo Soni MD #### PHEP, HIVCMB #### [address] [id number] Metabolic Specialist: Thang Nielsen MD GFR, Amer >60 Normal >60 [facility] Comment on above: Performed By: #### C BC, CP, HCG #### [facility] [facility] [address] [place], [place] [id number] Metabolic Specialist: Arnoldo Soni MD #### PHEP, HIVCMB #### [address] [place] [address] Metabolic Specialist: Thang Nielsen MD GFR,non Amer >60 Normal >60 [facility] Comment on above: Performed By: #### C BC, CP, HCG #### [facility] [address] [place], [place] [id number] Metabolic Specialist: Arnoldo Soni MD #### PHEP, HIVCMB #### [address] [place] [address] Metabolic Specialist: Thang Nielsen MD Glucose [Mass/Vol] 120 mg/dL High 70-99 [facility] Comment on above: Performed By: #### C BC, CP, HCG #### [facility] [address] [place], [place] [id number] Metabolic Specialist: Arnoldo Soni MD #### PHEP, HIVCMB #### [address] [address] Metabolic Specialist: Thang Nielsen MD Potassium [Moles/Vol] 3.7 mmol/L Normal 3.7-5.3 [facility] Comment on above: Performed By: #### C BC, CP, HCG #### [facility] [address] [place], [place] [id number] Metabolic Specialist: Arnoldo Soni MD #### PHEP, HIVCMB #### [address] [address] Metabolic Specialist: Thang Nielsen MD Protein [Mass/Vol] 7.1 g/dL Normal 6.4-8.3 [facility] Comment on above: Performed By: #### C BC, CP, HCG #### [facility] [address] [place], [place] [id number] Metabolic Specialist: Arnoldo Soni MD #### PHEP, HIVCMB #### [address] [address] Metabolic Specialist: Thang Nielsen MD Sodium [Moles/Vol] 139 mmol/L Normal 135-144 [facility] Comment on above: Performed By: #### C CAROL CP, HCG #### [facility] [address] [place], [place] [id number] Metabolic Specialist: Arnoldo Soni MD #### [place] HIVCMB #### [facility] [address] [place] [address] Metabolic Specialist: Thang Nielsen MD Staging: Normal [facility] Comment on above: Result Comment: Stag e 1: Some kidney damage normal GFR Stage 2: Mild kidney damage GFR 60-89 Stage 3: Moderate kidney damage GFR 30-59 Stage 4: Severe kidney damage GFR 15-29 Stage 5: Severe kidney damage GFR <15 ESRD - chronic treatment by dialysis or transplant Performed By: #### C CAROL CP, HCG #### [address] [place], [place] [id number] Metabolic Specialist: Arnoldo Soni MD #### PHEDonald HIVCMB #### [facility] [address] [place] [address] Metabolic Specialist: Thang Nielsen MD Urea nitrogen [Mass/Vol] 10 mg/dL Normal 6-20 [facility] Comment on above: Performed By: #### Sana MEDINA CP, HCG #### [address] [place], [place] [address] Metabolic Specialist: Arnoldo Soni MD #### PHEP HIVCMB #### [facility] [address] [place] [address] Metabolic Specialist: Thang Nielsen MD Comprehensive Metabolic Pane leonardo 11-15-2019 Albumin [Mass/Vol] 3.8 g/dL 3.5 - 5.2 g/dL [place], [place] Albumin/Globulin [Mass ratio] 1.2 {ratio} [place], [place] ALP [Catalytic activity/Vol] 72 U/L 35 - 104 U/L [place] ALT [Catalytic activity/Vol] 72 U/L High 5 - 33 U/L [place] Anion gap [Moles/Vol] 9 mmol/L 9 - 17 mmol/L [place] AST [Catalytic activity/Vol] 49 U/L High <32 [place] Bilirubin Ql (U) 0.32 mg/dL 0.3 - 1.2 mg/dL [place] Bun/Cre Ratio 18 [place], [place] Calcium [Mass/Vol] 9.3 mg/dL 8.6 - 10. 4 mg/dL [place] Chloride [Moles/Vol] 105 mmol/L 98 - 10 7 mmol/L [place] CO2 [Moles/Vol] 25 mmol/L 20 - 31 mmol/L [place] Creatinine [Mass/Vol] 0.57 mg/dL 0.5 - 0.9 mg/dL [place] GFR >60 >60 mL/min [place] GFR Non- >60 >60 mL/min [place] Glucose [Mass/Vol] 120 mg/dL High 70 - 99 mg/dL [place] Interpretation and review of laboratory results Abnormal [place] Potassium [Moles/Vol] 3.7 mmol/L 3.7 - 5.3 mmol/L [place] Protein [Mass/Vol] 7.1 g/dL 6.4 - 8.3 g/dL [place] Sodium [Moles/Vol] 139 mmol/L 135 - 144 mmol/L [place] Urea nitrogen [Mass/Vol] 10 mg/dL 6 - 20 mg/dL [place] HCG Qualitative, Serumon hCG Qual Negative NEGATIVE [place] Comment on above: Specimens with hCG l evels near the threshold of the test (25 mIU/mL) may give a negative or indeterminate result. In such cases, another test should be performed with a new specimen in 48-72 hours. If early is suspected clinically in this setting, correlation with quantitative serum b-hCG level is suggested. [facility] has confirmed the use of plasma for this test. This has not been cleared or approved by the U.S. Food and Drug Administration. The FDA has determined that such clearance is not necessary. HCG Screen, Bloodon 11-15-19 20 HCG Screen, Blood Negative Normal NEG [facility] Comment on above: Result Comment: Spec imens with hCG levels near the threshold of the test (25 mIU/mL) may give a negative or indeterminate result. In such cases, another test should be performed with a new specimen in 48-72 hours. If early is suspected clinically in this setting, correlation with quantitative serum b-hCG level is suggested. [facility] has confirmed the use of plasma for this test. This has not been cleared or approved by the U.S. Food and Drug Administration. The FDA has determined that such clearance is not necessary. Performed By: #### C BC, CP, HCG #### [address] [place] [address] Metabolic Specialist: Arnoldo Soni MD #### PHEP, HIVCMB #### [facility] [address] [place] [address] Metabolic Specialist: Thang Nielsen MD HIV Ag/Abon 11-15-2019 HIV Ag/Ab Non-Reactive Normal NR [facility] Comment on above: Result Comment: No l aboratory evidence of HIV infection. If acute HIV infection is suspected, consider testing for HIV-1 RNA. Performed By: #### C BC, HCG, CP #### [address] [place] [address] Metabolic Specialist: Josué Monae MD #### HIVCMB, PHEP #### [facility] [address] [place] [address] Metabolic Specialist: Thang Nielsen MD HIV Screenon 11-15-2019 HIV Ag/Ab NONREACTIVE NONREACTIVE [facility] [place], [place] Comment on above: No laboratory eviden ce of HIV infection. If acute HIV infection is suspected, consider testing for HIV-1 RNA. Hepatitis Acute [facility] 11-14 Hep A Ab,IgM Non-Reactive Normal NR [facility] Comment on above: Performed By: #### C BC, CP, HCG #### [facility] [address] [place], [place] [id number] Metabolic Specialist: Arnoldo Soni MD #### PHEP, HIVCMB #### [address] [id number] Metabolic Specialist: Thang Nielsen MD Hep B Core Ab,IgM Non-Reactive Normal [facility] Comment on above: Performed By: #### C BC, CP, HCG #### [address] [place], [place] [address]83 Metabolic Specialist: Arnoldo Soni MD #### PHEP, HIVCMB #### [address] [id number] Metabolic Specialist: Thang Nielsen MD Hep B Surf Ag Non-Reactive Normal [facility] Comment on above: Performed By: #### C BC, CP, HCG #### [address] [place] [address] Metabolic Specialist: Arnoldo Soni MD #### PHEP, HIVCMB #### [address] [id number] Metabolic Specialist: Thang Nielsen MD Hep C Ab Reactive Abnormal [facility] Comment on above: Result Comment: The hepatitis [...] Health Department Performed By: #### C BC, CP, HCG #### [address] [place] [address] Metabolic Specialist: Arnoldo Soni MD #### PHEP, HIVCMB #### [facility] [address] [place] [id number] Metabolic Specialist: Thang Nielsen MD Hepatitis Panel, Acuteon HAV IgM IA Qn (S) NONREACTIVE NONREACTIVE [place] Hep B Core Ab, IgM NONREACTIVE NONREACTIVE [place] Hepatitis B Surface Ag NONREACTIVE NONREACTIVE [place] Hepatitis C Ab REACTIVE Abnormal NONREACTIVE [facility] [place] [place] Comment on above: The hepatitis C [...] Interpretation and review of laboratory results Abnormal [place] Metabolic Panelon 11-15-2019 GFR/1.73 sq M predicted among non-blacks MDRD (S/P/Bld) [Vol rate/Area] [place] Comment on above: Stage 1: Some [...] body mass. Additional eGFR calculator available at: http://www.amazingtunes.com/multiple_crcl_2012.htm *BLOOD CULTUREon 01-02-2019 Bacteria identified Cx Nom (Bld) Clinical Report: (D) Specimen: BLOOD CULTURE Collected: 01/02/2019 09:25 Status: Final Last Updated: 01/07/2019 14:41 (1) Rt bicep CULT RES (Final) No Growth Day [address] [facility] Comment on above: Order Comment: No: D o not add to previous draw Performed By: #### 4 1000, , [id number] #### [facility] [address] [place] [address], [facility] Bacteria identified Cx Nom (Bld) Clinical Report: (D) Specimen: BLOOD CULTURE Collected: 01/02/2019 09:25 Status: Final Last Updated: 01/07/2019 14:41 (1) Rt wrist CULT RES (Final) No Growth Day [address] [facility] Comment on above: Order Comment: No: D o not add to previous draw Performed By: #### 4 1000, , 35555 #### [facility] [address] [place] [address], [place] BASIC METABOLIC PANELon 11-2 Calcium [Mass/Vol] 8.7 mg/dL Normal 8.6-10.[address] [facility] Comment on above: Order Comment: No: D o not add to previous draw Performed By: #### 4 1000, , 21532 #### [facility] [address] [place] [address], [place] Chloride [Moles/Vol] 110 mmol/L High 98-[address] [facility] Comment on above: Order Comment: No: D o not add to previous draw Performed By: #### 4 1000, , 32600 #### [facility] [address] [place] [address], [place] CO2 [Moles/Vol] 23 mmol/L Normal 21-[address] [facility] Comment on above: Order Comment: No: D o not add to previous draw Performed By: #### 4 1000, 45311, 54946 #### [facility] [address] [place] [address], [place] Creatinine [Mass/Vol] 0.52 mg/dL Low 0.60-1.[address] [facility] Comment on above: Order Comment: No: D o not add to previous draw Performed By: #### 4 1000, , 72713 #### [facility] [address] [place] [address], [place] GFR/1.73 sq M predicted among blacks MDRD (S/P/Bld) [Vol rate/Area] mL/min/{1.73_m2} Normal >[address] [facility] Comment on above: Order Comment: No: D o not add to previous draw Performed By: #### 4 1000, 42193, 51571 #### [facility] [address] [place] [address], [place] GFR/1.73 sq M predicted among non-blacks MDRD (S/P/Bld) [Vol rate/Area] mL/min/{1.73_m2} Normal >[address] [facility] Comment on above: Order Comment: No: D o not add to previous draw Performed By: #### 4 1000, , 97018 #### [facility] [address] [place] [address], [place] Glucose [Mass/Vol] 94 mg/dL Normal 70-[address] [facility] Comment on above: Order Comment: No: D o not add to previous draw Performed By: #### 4 1000, , 68237 #### [facility] [address] [place] [address], [place] Potassium [Moles/Vol] 3.8 mmol/L Normal 3.5-5.[address] [facility] Comment on above: Order Comment: No: D o not add to previous draw Performed By: #### 4 1000, , 25764 #### [facility] [address] [place] [address], [place] Sodium [Moles/Vol] 140 mmol/L Normal 136-[address] [facility] Comment on above: Order Comment: No: D o not add to previous draw Performed By: #### 4 1000, , 37340 #### [facility] [address] [place] [address], [place] Urea nitrogen [Mass/Vol] 4 mg/dL Low 7-[address] [facility] Comment on above: Order Comment: No: D o not add to previous draw Performed By: #### 4 1000, 31134, 55696 #### [facility] [address] [place] [address], [facility] C REACTIVE PROTEINon 019 CRP [Mass/Vol] 32.9 mg/L High 0.0-7.[address] [facility] Comment on above: Order Comment: No: D o not add to previous draw Performed By: #### 4 1000, 86197, 42219 #### [facility] [address] [place] [id number], [facility] CBC COMPLETE BLOOD COUNTon 03-04-2018 Erythrocyte distribution width (RBC) [Ratio] 13.2 % Normal 11.5-15.[address] [facility] Comment on above: Order Comment: No: D o not add to previous draw Performed By: #### 5 0608, 73592 #### [facility] [address] [place] [address], [facility] Hematocrit (Bld) [Volume fraction] 34.0 % Low 36.0-45.[address] [facility] Comment on above: Order Comment: No: D o not add to previous draw Performed By: #### 5 0608, 25439 #### [facility] [address] [place] [address], [facility] Hemoglobin (Bld) [Mass/Vol] 11.2 g/dL Low 12.0-15.[address] [facility] Comment on above: Order Comment: No: D o not add to previous draw Performed By: #### 5 0608, 77632 #### [facility] [address] [place] [address], [place] MCH (RBC) [Entitic mass] 30.9 pg Normal 27.0-33.[address] [facility] Comment on above: Order Comment: No: D o not add to previous draw Performed By: #### 5 0608, 08948 #### [facility] [address] [place] MCHC (RBC) [Mass/Vol] 32.9 g/dL Normal 32.0-35.[address] [facility] Comment on above: Order Comment: No: D o not add to previous draw Performed By: #### 5 607, 92069 #### [facility] [address] [place] [address], [facility] MCV (RBC) [Entitic vol] 93.7 fL Normal 82.0-98.[address] [facility] Comment on above: Order Comment: No: D o not add to previous draw Performed By: #### 5 607, 27411 #### [facility] [address] [place] [address], [facility] Nucleated RBC/100 WBC (Bld) [Ratio] 0 % Normal 0-[address] [facility] Comment on above: Order Comment: No: D o not add to previous draw Performed By: #### 5 607, 11716 #### [facility] [address] [place] [address], [facility] PLAT CNT 534 10*3/uL High 150-[address] [facility] Comment on above: Order Comment: No: D o not add to previous draw Performed By: #### 5 607, 04097 #### [facility] [address] [place] [address], [facility] RBC (Bld) [#/Vol] 3.63 10*6/uL Low 3.80-5.[address] [facility] Comment on above: Order Comment: No: D o not add to previous draw Performed By: #### 5 607, 28492 #### [facility] [address] [place] [address], [facility] WBC (Bld) [#/Vol] 7.69 10*3/uL Normal 4.00-10.[address] [facility] Comment on above: Order Comment: No: D o not add to previous draw Performed By: #### 5 607, 18781 #### [facility] SEDIMENTATION RATEon 019 SED RATE 60 mm/hr High 0-[address] [facility] Comment on above: Order Comment: No: D o not add to previous draw Performed By: #### 4 1000, 883[address], 824[address] #### [address] HAND LEFT 3 [facility] 01-01-2019 HAND LEFT 3 [facility] Department of Radiology [address] [place] [id number] Patient Name: MORRIS DURAN : 1985 Sex: F Age: Race: White Pt. Location: [id number] Patient Status: D Ordered Date: 01/01/2019 10:40:00 AM Completed Date: 01/01/2019 01:09 PM Requesting Provider: EMERSON KOCH Attending Provider: BRIANNA LOPEZ Report Copy To: Signs & Symptoms: Gangrene History: See Comments Comments: R/O Osteomyelitis Exam: [facility] 01/01/2019 1:09 PM EST SIGNS AND SYMPTOMS: [...] findings. Electronically signed by:Dante Hill. Transcribed by: [email or web address], User Resident: BEAR CHAMPION Electronically Signed by: DANTE HILL @ 01/04/2019 04:45 PM I personally read this/these film(s) with this resident Normal [facility] Comment on above: Order Comment: No: D o not add to previous draw MRI LUMBAR SPINE W WO CONTRA STon 01-01-2019 MRI LUMBAR SPINE W WO CONTRAST [facility] Department of Radiology [address] [place] [id number] Patient Name: MORRIS DURAN : 1985 Sex: F Age: Race: White Pt. Location: [address] [place] [address] Patient Status: I Ordered Date: 12/31/2018 9:35:00 [...] anteriorly Electronically signed by:Sivan Kimble. Transcribed by: [email or web address], User Resident: Electronically Signed by: SIVAN KIMBLE @ 01/02/2019 10:[address] [facility] Comment on above: Order Comment: No: D o not add to previous draw URINALYSIS REFLEXon 01-02-20 19 Appearance (U) SL CLOUDY Abnormal CLEAR [facility] Comment on above: Order Comment: No: D o not add to previous draw Criteria for reflexing a culture was not met. Please call the lab at [phone] within 24 hours of collection time if culture is needed Performed By: #### 3 0965 #### [facility] [address] [place] [address], [place] Bilirubin [Mass/Vol] Negative Normal NEGATIVE [facility] Comment on above: Order Comment: No: D o not add to previous draw Criteria for reflexing a culture was not met. Please call the lab at [phone] within 24 hours of collection time if culture is needed Performed By: #### 3 0965 #### [facility] [address] [place] [address], [place] BLOOD Negative Normal NEGATIVE [facility] Comment on above: Order Comment: No: D o not add to previous draw Criteria for reflexing a culture was not met. Please call the lab at [phone] within 24 hours of collection time if culture is needed Performed By: #### 3 0965 #### [facility] [address] [place] [address], [place] Color (U) YELLOW Normal YELLOW [facility] Comment on above: Order Comment: No: D o not add to previous draw Criteria for reflexing a culture was not met. Please call the lab at [phone] within 24 hours of collection time if culture is needed Performed By: #### 3 0965 #### [facility] [address] [place] [address], [place] EPIS MANY Abnormal FEW,OCC,NONE SEEN [facility] Comment on above: Order Comment: No: D o not add to previous draw Criteria for reflexing a culture was not met. Please call the lab at [phone] within 24 hours of collection time if culture is needed Performed By: #### 3 0965 #### [facility] [address] [place] [address], [place] Glucose [Mass/Vol] Negative Normal NEGATIVE [facility] Comment on above: Order Comment: No: D o not add to previous draw Criteria for reflexing a culture was not met. Please call the lab at [phone] within 24 hours of collection time if culture is needed Performed By: #### 3 0965 #### [facility] [address] [place] [address], [facility] KETONE 80 mg/dL Abnormal NEGATIVE [facility] Comment on above: Order Comment: No: D o not add to previous draw Criteria for reflexing a culture was not met. Please call the lab at [phone] within 24 hours of collection time if culture is needed Performed By: #### 3 0965 #### [facility] [address] [place] [address], [facility] LEUK MARIANA Negative Normal NEGATIVE [facility] Comment on above: Order Comment: No: D o not add to previous draw Criteria for reflexing a culture was not met. Please call the lab at [phone] within 24 hours of collection time if culture is needed Performed By: #### 3 0965 #### [facility] [address] [facility] [place] [address], [facility] MUCUS THREADS FEW Abnormal NONE SEEN [facility] Comment on above: Order Comment: No: D o not add to previous draw Criteria for reflexing a culture was not met. Please call the lab at [phone] within 24 hours of collection time if culture is needed Performed By: #### 3 0965 #### [facility] [address] [facility] [place] [address], [facility] Nitrite Ql (U) Negative Normal NEGATIVE [facility] Comment on above: Order Comment: No: D o not add to previous draw Criteria for reflexing a culture was not met. Please call the lab at [phone] within 24 hours of collection time if culture is needed Performed By: #### 3 0965 #### [facility] [address] [place] [address], [facility] pH (Bld) 5.0 Normal 5.0-8.[address] [facility] Comment on above: Order Comment: No: D o not add to previous draw Criteria for reflexing a culture was not met. Please call the lab at [phone] within 24 hours of collection time if culture is needed Performed By: #### 3 0965 #### [facility] [address] [facility] [place] [address], [facility] Protein (U) [Mass/Vol] 30 mg/dL Abnormal NEGATIVE [facility] Comment on above: Order Comment: No: D o not add to previous draw Criteria for reflexing a culture was not met. Please call the lab at [phone] within 24 hours of collection time if culture is needed Performed By: #### 3 0965 #### [facility] [address] [facility] [place] [address], [facility] RBC (U) [#/Vol] 0-2 Abnormal NONE SEEN [facility] Comment on above: Order Comment: No: D o not add to previous draw Criteria for reflexing a culture was not met. Please call the lab at [phone] within 24 hours of collection time if culture is needed Performed By: #### 3 0965 #### [facility] [address] SPEC GRAV 1.028 High 1.015-1.[address] [facility] Comment on above: Order Comment: No: D o not add to previous draw Criteria for reflexing a culture was not met. Please call the lab at [phone] within 24 hours of collection time if culture is needed Performed By: #### 3 0965 #### [facility] [address] [facility] [place] [address], [facility] WBC UA 6-10 Abnormal NONE SEEN [facility] Comment on above: Order Comment: No: D o not add to previous draw Criteria for reflexing a culture was not met. Please call the lab at [phone] within 24 hours of collection time if culture is needed Performed By: #### 3 0965 #### [facility] [address] [facility] [place] [address], [facility] AMMONIA BLOODon 12-31-2018 Ammonia (P) [Mass/Vol] 42 umol/L Normal 16-[address] [facility] Comment on above: Order Comment: No: D o not add to previous draw Performed By: #### 2 1408 #### [facility] [address] [place] [address], [place] BASIC METABOLIC PANELon 11-2 Calcium [Mass/Vol] 8.9 mg/dL Normal 8.6-10.[address] [facility] Comment on above: Order Comment: No: D o not add to previous draw Performed By: #### 4 1000, , 06006 #### [facility] [address] [place] [address], [place] Chloride [Moles/Vol] 108 mmol/L High 98-[address] [facility] Comment on above: Order Comment: No: D o not add to previous draw Performed By: #### 4 1000, , 34853 #### [facility] [address] [place] [address], [place] CO2 [Moles/Vol] 23 mmol/L Normal 21-[address] [facility] Comment on above: Order Comment: No: D o not add to previous draw Performed By: #### 4 1000, , [id number] #### [facility] [address] [place] [address], [place] Creatinine [Mass/Vol] 0.54 mg/dL Low 0.60-1.[address] [facility] Comment on above: Order Comment: No: D o not add to previous draw Performed By: #### 4 1000, , 00898 #### [facility] [address] [place] [address], [place] GFR/1.73 sq M predicted among blacks MDRD (S/P/Bld) [Vol rate/Area] mL/min/{1.73_m2} Normal >[address] [facility] Comment on above: Order Comment: No: D o not add to previous draw Performed By: #### 4 1000, , [id number] #### [facility] [address] [place] [address], [place] GFR/1.73 sq M predicted among non-blacks MDRD (S/P/Bld) [Vol rate/Area] mL/min/{1.73_m2} Normal >[address] [facility] Comment on above: Order Comment: No: D o not add to previous draw Performed By: #### 4 1000, [id number], 97417 #### [facility] [address] [place] [address], [place] Glucose [Mass/Vol] 66 mg/dL Low 70-[address] [facility] Comment on above: Order Comment: No: D o not add to previous draw Performed By: #### 4 1000, 75963, 95407 #### [facility] [address] [place] [address], [place] Potassium [Moles/Vol] 3.6 mmol/L Normal 3.5-5.[address] [facility] Comment on above: Order Comment: No: D o not add to previous draw Performed By: #### 4 1000, , 75434 #### [facility] [address] [place] [address], [place] Sodium [Moles/Vol] 140 mmol/L Normal 136-[address] [facility] Comment on above: Order Comment: No: D o not add to previous draw Performed By: #### 4 1000, , 46989 #### [facility] [address] [place] [address], [place] Urea nitrogen [Mass/Vol] 8 mg/dL Normal 7-[address] [facility] Comment on above: Order Comment: No: D o not add to previous draw Performed By: #### 4 1000, 61265, 48865 #### [facility] [address] [place] [address], [place] CBC W/DIFFon 12-31-2018 ABS BASOPHILS 0.0 10*3/uL Normal 0.0-0.[address] [facility] Comment on above: Order Comment: No: D o not add to previous draw Performed By: #### 5 0103 #### [facility] [address] [place] [address], [facility] ABS IMM GRANS 0.0 10*3/uL Normal 0.0-0.[address] [facility] Comment on above: Order Comment: No: D o not add to previous draw Performed By: #### 5 0103 #### [facility] [address] [place] [address], [facility] ABS NEUTROPHILS 6.8 10*3/uL Normal 1.6-7.[address] [facility] Comment on above: Order Comment: No: D o not add to previous draw Performed By: #### 5 0103 #### [facility] [address] [place] [address], [facility] Basophils/100 WBC (Bld) 0.3 % Normal 0.0-1.[address] [facility] Comment on above: Order Comment: No: D o not add to previous draw Performed By: #### 5 0103 #### [facility] [address] [place] [address], [facility] Eosinophils (Bld) [#/Vol] 0.3 10*3/uL Normal 0.0-0.[address] [facility] Comment on above: Order Comment: No: D o not add to previous draw Performed By: #### 5 0103 #### [facility] [address] [place] [address], [facility] Eosinophils/100 WBC (Bld) 2.9 % Normal 0.0-6.[address] [facility] Comment on above: Order Comment: No: D o not add to previous draw Performed By: #### 5 0103 #### [facility] [address] [place] [address], [facility] Erythrocyte distribution width (RBC) [Ratio] 12.8 % Normal 11.5-15.[address] [facility] Comment on above: Order Comment: No: D o not add to previous draw Performed By: #### 5 0103 #### [facility] [address] [place] [address], [facility] Hematocrit (Bld) [Volume fraction] 33.6 % Low 36.0-45.[address] [facility] Comment on above: Order Comment: No: D o not add to previous draw Performed By: #### 5 0103 #### [facility] [address] [place] [id number], [facility] Hemoglobin (Bld) [Mass/Vol] 10.9 g/dL Low 12.0-15.[address] [facility] Comment on above: Order Comment: No: D o not add to previous draw Performed By: #### 5 0103 #### [facility] [address] [place] [id number], [facility] IMMATURE GRANS 0.4 % Normal 0.0-1.[address] [facility] Comment on above: Order Comment: No: D o not add to previous draw Performed By: #### 5 0103 #### [facility] [address] [place] [address], [facility] Lymphocytes (Bld) [#/Vol] 1.9 10*3/uL Normal 1.2-4.[address] [facility] Comment on above: Order Comment: No: D o not add to previous draw Performed By: #### 5 0103 #### [facility] [address] [place] [address], [facility] Lymphocytes/100 WBC (Bld) 19.6 % Low 20.0-45.[address] [facility] Comment on above: Order Comment: No: D o not add to previous draw Performed By: #### 5 0103 #### [facility] [address] [place] [address], [facility] MCH (RBC) [Entitic mass] 30.6 pg Normal 27.0-33.[address] [facility] Comment on above: Order Comment: No: D o not add to previous draw Performed By: #### 5 0103 #### [facility] [address] [place] [id number], [facility] MCHC (RBC) [Mass/Vol] 32.4 g/dL Normal 32.0-35.[address] [facility] Comment on above: Order Comment: No: D o not add to previous draw Performed By: #### 5 0103 #### [facility] [address] [place] [address], [facility] MCV (RBC) [Entitic vol] 94.4 fL Normal 82.0-98.[address] [facility] Comment on above: Order Comment: No: D o not add to previous draw Performed By: #### 5 0103 #### [facility] [address] [place] [place] [address], [facility] Monocytes (Bld) [#/Vol] 0.8 10*3/uL Normal 0.1-1.[address] [facility] Comment on above: Order Comment: No: D o not add to previous draw Performed By: #### 5 0103 #### [facility] [address] [facility] [place] [address], [facility] MONOS 7.9 % Normal 5.0-12.[address] [facility] Comment on above: Order Comment: No: D o not add to previous draw Performed By: #### 5 0103 #### [facility] [address] [facility] [place] [address], [facility] Neutrophils/100 WBC (Bld) 68.9 % Normal 40.0-72.[address] [facility] Comment on above: Order Comment: No: D o not add to previous draw Performed By: #### 5 0103 #### [facility] [address] [place] [address], [facility] Nucleated RBC/100 WBC (Bld) [Ratio] 0 % Normal 0-[address] [facility] Comment on above: Order Comment: No: D o not add to previous draw Performed By: #### 5 3 #### [facility] [address] [place] [id number], [facility] PLAT CNT 452 10*3/uL High 150-[address] [facility] Comment on above: Order Comment: No: D o not add to previous draw Performed By: #### 5 0103 #### [facility] [address] [place] [address], [facility] RBC (Bld) [#/Vol] 3.56 10*6/uL Low 3.80-5.[address] [facility] Comment on above: Order Comment: No: D o not add to previous draw Performed By: #### 5 0103 #### [facility] [address] [place] [address], [facility] WBC (Bld) [#/Vol] 9.82 10*3/uL Normal 4.00-10.[address] [facility] Comment on above: Order Comment: No: D o not add to previous draw Performed By: #### 5 0103 #### [facility] [address] [facility] [place] [address], [facility] LITHIUMon 12-31-2018 [place] [Moles/Vol] Normal [facility] Comment on above: Order Comment: Yes: Add to Previous draw if able Result Comment: Test Performed by [facility] [address] [place] [address] - Released 12/31/2018 21:21 Result changed by IF on 12/31/2018 21:21. The previous value was Test Performed by [facility] [address] [place] [address] [phone].. [place] [Moles/Vol] mmol/L Low 0.6-1.[address] [facility] Comment on above: Order Comment: Yes: Add to Previous draw if able LIVER BATTERYon 12-31-2018 Albumin [Mass/Vol] 3.4 g/dL Low 3.5-5.[address] [facility] Comment on above: Order Comment: Yes: Add to Previous draw if able Performed By: #### 9 9909 #### [facility] [address] [place] [address], [facility] ALKALINE PHOSPH 66 IU/L Normal 34-[address] [facility] Comment on above: Order Comment: Yes: Add to Previous draw if able Performed By: #### 9 9909 #### [facility] [address] [place] [address], [facility] ALT [Catalytic activity/Vol] 40 U/L Normal 7-[address] [facility] Comment on above: Order Comment: Yes: Add to Previous draw if able Performed By: #### 9 9909 #### [facility] [address] [place] [address], [facility] AST [Catalytic activity/Vol] 41 U/L High 13-[address] [facility] Comment on above: Order Comment: Yes: Add to Previous draw if able Performed By: #### 9 9909 #### [facility] [address] [place] [address], [place] Bilirubin [Mass/Vol] 0.4 mg/dL Normal 0.3-1.[address] [facility] Comment on above: Order Comment: Yes: Add to Previous draw if able Performed By: #### 9 9909 #### [facility] [address] [place] [address], [facility] Bilirubin.direct [Mass/Vol] 0.2 mg/dL Normal 0.0-0.[address] [facility] Comment on above: Order Comment: Yes: Add to Previous draw if able Performed By: #### 9 9909 #### [facility] [address] [place] [address], [facility] Protein [Mass/Vol] 6.1 g/dL Normal 6.0-8.[address] [facility] Comment on above: Order Comment: Yes: Add to Previous draw if able Performed By: #### 9 9909 #### [facility] [address] [place] [address], [place] MAGNESIUM BLOODon 12-31-2018 Magnesium [Mass/Vol] 2.0 mg/dL Normal 1.9-2.[address] [facility] Comment on above: Order Comment: No: D o not add to previous draw Performed By: #### 4 1000, 16086, 87757 #### [facility] [address] [place] [address], [facility] PHOSPHORUS BLOODon 9 Phosphate [Mass/Vol] 2.5 mg/dL Normal 2.5-5.[address] [facility] Comment on above: Order Comment: No: D o not add to previous draw Performed By: #### 4 1000, 27786, 98039 #### [facility] [address] [place], [place] [id number] [place] [address] PROCALCITONINon 12-31-2018 PROCALCITONIN 0.10 ng/mL Normal 0.00-0.[address] [facility] Comment on above: Order Comment: No: [...] PCT<0.5ng/mL Performed By: #### 3 1488 #### [facility] [address] [place], [place] [id number] [place] [address] Basic Metabolic Profon 05-05 -2019 (cont.) Normal [facility] Comment on above: Result Comment: Aver age GFR for 30-39 years old: 107 mL/min/1.73sq m Chronic Kidney Disease: <60 mL/min/1.73sq m Kidney failure: <15 mL/min/1.73sq m eGFR calculated using average adult body mass. Additional eGFR calculator available at: http://www.amazingtunes.[employer]/multiple_crcl_2012.htm Performed By: #### U AX, UMICAO #### [facility] [place] [address] Anion gap molar conc 12 mmol/L Normal 9-17 [facility] Comment on above: Performed By: #### U AX, UMICAO #### [facility] [address] [place] [address] Calcium mass conc 9.6 mg/dL Normal 8.6-10.4 [facility] Comment on above: Performed By: #### U AX, UMICAO #### [facility] [address] [place] [address] Chloride molar conc 104 mmol/L Normal 98-107 [facility] Comment on above: Performed By: #### U AX, UMICAO #### [facility] [address] [place] [address] CO2 molar conc 21 mmol/L Normal 20-31 [facility] Comment on above: Performed By: #### U AX, UMICAO #### [facility] [address] [place] [address] Creatinine mass conc 0.75 mg/dL Normal 0.50-0.90 [facility] Comment on above: Performed By: #### U AX, UMICAO #### [facility] [address] [place] [address] GFR, Amer >60 Normal >60 [facility] Comment on above: Performed By: #### U AXMAO #### [facility] [address] [place] [address] GFR,non Amer >60 Normal >60 [facility] Comment on above: Performed By: #### U AXAMO #### [facility] [address] [place] [address] Glucose mass conc 105 mg/dL High 70-99 [facility] Comment on above: Performed By: #### U AX UMBETHANY #### [facility] [address] [place] [address] Potassium molar conc 3.9 mmol/L Normal 3.7-5.3 [facility] Comment on above: Performed By: #### U AXMAO #### [facility] [address] [place] [address] Sodium molar conc 137 mmol/L Normal 135-144 [facility] Comment on above: Performed By: #### U AXMAO #### [facility] [address] [place] [address] Urea nitrogen mass conc 12 mg/dL Normal 6-20 [facility] Comment on above: Performed By: #### U AXMAO #### [facility] [address] [place] [address] BUN/CRE Ratio NOT REPORTED Normal 9-20 [facility] Comment on above: Performed By: #### U AXDEMIICAKimmie #### [facility] [address] [place] [address] Staging: NOT REPORTED Normal [facility] Comment on above: Performed By: #### U AX UMICAKimmie #### [facility] [address] [place] [address] CBC with Diffon 06-10-2018 Abs. Basophil 0.06 k/uL Normal 0.00-0.20 [facility] Comment on above: Performed By: #### U AXMAO #### [facility] [address] [place] [address] Abs.Imm.Granulocyte 0.04 k/uL Normal 0.00-0.30 [facility] Comment on above: Performed By: #### U AXMAO #### [facility] [address] [place] [address] Abs.Neutrophil (Seg) 5.70 k/uL Normal 1.50-8.10 [facility] Comment on above: Performed By: #### U AXMAO #### [facility] [address] [place] [address] Basophils/100 WBC (Bld) 1 % Normal 0-2 [facility] Comment on above: Performed By: #### U AXMAO #### [facility] [address] [place] [address] Eosinophils #/vol (Bld) 0.29 10*3/uL Normal 0.00-0.44 [facility] Comment on above: Performed By: #### U AXMAO #### [facility] [address] [place] [address] Eosinophils/100 WBC (Bld) 3 % Normal 1-4 [facility] Comment on above: Performed By: #### U AXMAO #### [facility] [address] [place] [address] Erythrocyte distribution width Ratio (RBC) 11.9 % Normal 11.8-14.4 [facility] Comment on above: Performed By: #### U AXMAO #### [facility] [address] [place] [address] Hematocrit Volume Fraction (Bld) 42.5 % Normal 36.3-47.1 [facility] Comment on above: Performed By: #### U AXMAO #### [facility] [address] [place] [address] Hemoglobin mass conc (Bld) 14.0 g/dL Normal 11.9-15.1 [facility] Comment on above: Performed By: #### U AXMAO #### [facility] [address] [place] [address] Immature granulocytes #/vol (Bld) 0 % Normal 0 [facility] Comment on above: Performed By: #### U AXMAO #### [facility] [address] [place] [address] Lymphocytes #/vol (Bld) 2.41 10*3/uL Normal 1.10-3.70 [facility] Comment on above: Performed By: #### U AXMAO #### [facility] [address] [place] [address] Lymphocytes/100 WBC (Bld) 26 % Normal 24-43 [facility] Comment on above: Performed By: #### U AXMAO #### [facility] [address] [place] [address] MCH Entitic mass (RBC) 30.8 pg Normal 25.2-33.5 [facility] Comment on above: Performed By: #### U AXDEMIICAKimmie #### [facility] [address] [place] [address] MCHC mass conc (RBC) 32.9 g/dL Normal 28.4-34.8 [facility] Comment on above: Performed By: #### U AX UMICAO #### [facility] [address] [place] [address] MCV Entitic volume (RBC) 93.4 fL Normal 82.6-102.9 [facility] Comment on above: Performed By: #### U AXMAO #### [address] [address] Monocytes #/vol (Bld) 0.86 10*3/uL Normal 0.10-1.20 [facility] Comment on above: Performed By: #### U AXMAO #### [address] [address] Monocytes/100 WBC (Bld) 9 % Normal 3-12 [facility] Comment on above: Performed By: #### U AXMAO #### [address] [address] Neutrophil (Seg) 61 % Normal 36-65 [facility] Comment on above: Performed By: #### U AXMAO #### [address] [address] NRBC Automated 0.0 per 100 WBC Normal 0.0 [facility] Comment on above: Performed By: #### U AXMAO #### [address] [address] Platelet mean volume Entitic volume (Bld) 9.9 fL Normal 8.1-13.5 [facility] Comment on above: Performed By: #### U AXMAO #### [address] [address] Platelets #/vol (Bld) 410 10*3/uL Normal 138-453 [facility] Comment on above: Performed By: #### U AXDEMIICAO #### [address] [address] RBC #/vol (Bld) 4.55 10*6/uL Normal 3.95-5.11 [facility] Comment on above: Performed By: #### U AX, UMICAO #### [facility] [address] [place] [address] WBC #/vol (Bld) 9.4 10*3/uL Normal 3.5-11.3 [facility] Comment on above: Performed By: #### U AX, UMICAO #### [facility] [address] [place] [address] Auto Diff Performed NOT REPORTED Normal [facility] Comment on above: Performed By: #### U AX, UMICAO #### [facility] [address] [place] [address] Platelets #/vol (Bld) NOT REPORTED Normal [facility] Comment on above: Performed By: #### U AX, UMICAO #### [facility] [address] [place] [address] RBC morphology finding Nom (Bld) NOT REPORTED Normal [facility] Comment on above: Performed By: #### U AX, UMICAO #### [facility] [address] [place] [address] WBC Morphology NOT REPORTED Normal [facility] Comment on above: Performed By: #### U AX, UMICAO #### [facility] [address] [place] [address] [address] ABDOMEN PELVIS WO CONTRAS Ton 06-10-2018 [...] Sean Garcia MD 06/10/18 Final result Normal [facility] HCG Screen, Bloodon 06-11-19 19 HCG Qn Negative Normal NEG [facility] Comment on above: Result Comment: Spec imens with hCG levels near the threshold of the test (25 mIU/mL) may give a negative or indeterminate result. In such cases, another test should be performed with a new specimen in 48-72 hours. If early is suspected clinically in this setting, correlation with quantitative serum b-hCG level is suggested. [facility] has confirmed the use of plasma for this test. This has not been cleared or approved by the U.[place]. Food and Drug Administration. The FDA has determined that such clearance is not necessary. Performed By: #### MAO MASTERS #### [facility] [address] [place] [address] Cult,Urine,CCon 06-09-2018 Cult,Urine,CC Specimen Description .CLEAN CATCH URINE Special Requests NOT REPORTED Culture NO SIGNIFICANT GROWTH Report Status FINAL 06/09/2018 Normal [facility] Comment on above: Performed By: #### MAO MASTERS #### [facility] [address] [place] [address] Drug Scr, Abuse, Uron 2018 Amphetamine(s),Ur Positive Abnormal NEG [facility] Comment on above: Result Comment: (Positive cutoff 1000 ng/mL) Performed By: #### U AX, UMICAO #### [facility] [address] [place] [address] Barbiturate(s),Ur Negative Normal NEG [facility] Comment on above: Result Comment: (Positive cutoff 200 ng/mL) Performed By: #### U AX, UMICAO #### [facility] [address] [place] [address]26 Base excess Calculated molar conc (Bld) Negative Normal NEG [facility] Comment on above: Result Comment: (Positive cutoff 300 ng/mL) Performed By: #### U AX, UMICAO #### [facility] [address] [place] [address] Benzodiazepine(s) Negative Normal NEG [facility] Comment on above: Result Comment: (Positive cutoff 200 ng/mL) Performed By: #### U AX, UMICAO #### [facility] [address] [place] [address] Cannabinoid(s),Ur Negative Normal NEG [facility] Comment on above: Result Comment: (Positive cutoff 50 ng/mL) Performed By: #### U AX, UMICAO #### [facility] [address] [place] [address] Interpretive Info Assay provides medical screening only. The absence of expected drug(s) and/or Normal [facility] Comment on above: Result Comment: meta bolite(s) may indicate diluted or adulterated urine, limitations of testing or timing of collection. Testing for legal purposes should be confirmed by another method. To request confirmation of test result, please call the lab within 7 days of sample submission. Performed By: #### U AX, UMICAO #### [facility] [address] [place] [address] Methadone Ql (U) Negative Normal NEG [facility] Comment on above: Result Comment: (Positive cutoff 300 ng/mL) Performed By: #### U AXMAO #### [facility] [address] [place] [address] Opiate(s), Ur Negative Normal NEG [facility] Comment on above: Result Comment: (Positive cutoff 300 ng/mL) Performed By: #### U AXDEMIICAO #### [facility] [address] [place] [address] Oxycodone, Urine Negative Normal NEG [facility] Comment on above: Result Comment: (Positive cutoff 100 ng/mL) Performed By: #### U AXMAO #### [facility] [address] [place] [address] Phencyclidine, Ur Negative Normal NEG [facility] Comment on above: Result Comment: (Positive cutoff 25 ng/mL) Performed By: #### U AXMAO #### [facility] [address] [place] [address] 21376 Buprenorphrine, Ur NOT REPORTED Normal NEG [facility] Comment on above: Performed By: #### U AXMAO #### [facility] [address] [place] [address] 12436 MDMA, Urine NOT REPORTED Normal NEG [facility] Comment on above: Performed By: #### U AXMAO #### [facility] [address] [place] [address] 02252 Methamphetamine, Ur NOT REPORTED Normal NEG [facility] Comment on above: Performed By: #### U AXMAO #### [facility] [address] [place] [address] 31970 Protein mass conc (U) NOT REPORTED Normal NEG [facility] Comment on above: Performed By: #### U AXDEMIICAKimmie #### [facility] [address] [place] [address] 06770 Tricyclic antidepressants Screen Ql (U) NOT REPORTED Normal NEG [facility] Comment on above: Performed By: #### U MAO ROSARIO #### [facility] [address] [place] [address] 43987 UA w/Reflex Cultureon 2018 Bilirubin.direct mass conc Negative Abnormal NEG [facility] Comment on above: Performed By: #### MAO MASTERS #### [facility] [address] [place] [address] 46548 Comment Culture ordered based on defined criteria. Normal [facility] Comment on above: Performed By: #### MAO MASTERS #### [facility] [address] [place] [address] 36021 Acetoacetic Acid,Ur Negative Normal NEG [facility] Comment on above: Performed By: #### MAO MASTERS #### [facility] [address] [place] [address] 12438 Color Nom (U) DARK YELLOW Abnormal YEL [facility] Comment on above: Performed By: #### MAO MASTERS #### [facility] [address] [place] [address] 91855 Glucose mass conc Negative Normal NEG [facility] Comment on above: Performed By: #### U MAO ROSARIO #### [facility] [address] [place] [address] 14186 Hemoglobin mass conc (Bld) TRACE Abnormal NEG [facility] Comment on above: Performed By: #### U MAO ROSARIO #### [facility] [address] [place] [address] 56694 Leuckocyte Esterase MODERATE Abnormal NEG [facility] Comment on above: Performed By: #### U MAO ROSARIO #### [facility] [address] [place] [address] 72713 Nitrite,Ur Positive Abnormal NEG [facility] Comment on above: Performed By: #### U AXMAO #### [facility] [address] [place] [address] 93512 PH,Ur 5.5 Normal 5.0-8.0 [facility] Comment on above: Performed By: #### U AXMAO #### [facility] [address] [place] [address] 50060 Protein mass conc Negative Normal NEG [facility] Comment on above: Performed By: #### U AXMAO #### [facility] [address] [place] [address] 05284 Spec. [place],Ur 1.021 Normal 1.005-1.030 [facility] Comment on above: Performed By: #### U AXMAO #### [facility] [address] [place] [address] 50112 Turbidity CLOUDY Abnormal CLEAR [facility] Comment on above: Performed By: #### U AXMAO #### [facility] [address] [place] [address] 51233 Urobilinogen,Ur Normal Normal NORM [facility] Comment on above: Performed By: #### U AXMAO #### [facility] [address] [place] [address] 83666 Urinalysis,Microon 9 ----- Normal [facility] Comment on above: Performed By: #### U AXMAO #### [facility] [address] [place] [address] 81250 Bacteria LM.HPF #/area (Urine sed) FEW Abnormal NONE [facility] Comment on above: Performed By: #### U AXMAO #### [facility] [address] [place] [address] 96896 Epithelial cells LM.HPF #/area (Urine sed) 50 TO 100 Normal 0-5 [facility] Comment on above: Performed By: #### U AXMAO #### [facility] [place] [address] Mucus Strands 2+ Abnormal NONE [facility] Comment on above: Performed By: #### U AXMAO #### [facility] [address] [place] [address] 65455 RBC #/vol (U) None Normal 0-2 [facility] Comment on above: Performed By: #### U AXMAO #### [facility] [address] [place] [address] 20994 WBC #/vol (U) 50 TO 100 Normal 0-5 [facility] Comment on above: Performed By: #### U AXMAO #### [facility] [address] [place] [address] 69771 Amorphous sediment LM Ql (Urine sed) NOT REPORTED Normal NONE [facility] Comment on above: Performed By: #### U AXMAO #### [facility] [address] [place] [address] 97879 Casts LM.LPF #/area (Urine sed) NOT REPORTED Normal 0-2 [facility] Comment on above: Performed By: #### U AXMAO #### [facility] [address] [place] [address] 63879 Crystals LM Nom (Urine sed) NOT REPORTED Normal NONE [facility] Comment on above: Performed By: #### U AXMAO #### [facility] [place] [address] Epithelial, Renal NOT REPORTED Normal 0 [facility] Comment on above: Performed By: #### U AXMAO #### [facility] [place] [address] Other Observations NOT REPORTED Normal NREQ [facility] Comment on above: Performed By: #### U AXMAO #### [facility] [place] [address] Trichomonas NOT REPORTED Normal NONE [facility] Comment on above: Performed By: #### U AXMAO #### [facility] [address] [place] [address] 92458 Yeast LM Ql (Urine sed) NOT REPORTED Normal NONE [facility] Comment on above: Performed By: #### U AXMAO #### [facility] [address] [place] [address] 32557 HCG, ,Urineon 06-04 HCG.beta subunit ( test) Ql (U) Negative Normal NEG [facility] Comment on above: Result Comment: Spec imens with hCG levels near the threshold of the test (25 mIU/mL) may give a negative or indeterminate result. In such cases, another test should be performed with a new specimen in 48-72 hours. If early is suspected clinically in this setting, correlation with quantitative serum b-hCG level is suggested. Performed By: #### U AXMAO #### [facility] [address] [place] [address] 49724 Urinalysis w/ Microon 2018 ----- Normal [facility] Comment on above: Performed By: #### U AXMAO #### [facility] [address] [place] [address] 10679 Crystals LM Nom (Urine sed) CALCIUM OXALATE Abnormal NONE [facility] Comment on above: Result Comment: FEW Performed By: #### U AXMAO #### [facility] [address] [place] [address] 62946 Epithelial cells LM.HPF #/area (Urine sed) 0 TO 2 Normal 0-5 [facility] Comment on above: Performed By: #### U AX UMICAO #### [facility] [address] [place] [address] 33672 Mucus Strands 1+ Abnormal NONE [facility] Comment on above: Performed By: #### U AX, UMICAO #### [facility] [address] [place] [address] 09122 RBC #/vol (U) 0 TO 2 Normal 0-2 [facility] Comment on above: Performed By: #### U AX UMICAO #### [facility] [address] [place] [address] 19016 WBC #/vol (U) 2 TO 5 Normal 0-5 [facility] Comment on above: Performed By: #### U AX, UMICAO #### [facility] [address] [place] [address] 72444 Acetoacetic Acid,Ur TRACE Abnormal NEG [facility] Comment on above: Performed By: #### U AX, UMICAO #### [facility] [address] [place] [address] 15291 Bilirubin, SemiQt,Ur Negative Normal NEG [facility] Comment on above: Performed By: #### U AX UMICAO #### [facility] [address] [place] [address] 80742 Color Nom (U) YELLOW Normal YEL [facility] Comment on above: Performed By: #### U AX UMICAO #### [facility] [address] [place] [address] 92622 Glucose,Semi-qnt,Ur Negative Normal NEG [facility] Comment on above: Performed By: #### U AX, UMICAO #### [facility] [address] [place] [address] 17032 Hemoglobin, Ur MODERATE Abnormal NEG [facility] Comment on above: Performed By: #### U AX, UMICAO #### [facility] [address] [place] [address] 35938 Leuckocyte Esterase MODERATE Abnormal NEG [facility] Comment on above: Performed By: #### U AX, UMICAO #### [facility] [address] [place] [address] 74462 Nitrite,Ur Negative Normal NEG [facility] Comment on above: Performed By: #### U AX, UMICAO #### [facility] [address] [place] [address] 44610 PH,Ur 5.5 Normal 5.0-8.0 [facility] Comment on above: Performed By: #### U AX, UMICAO #### [facility] [address] [place] [address] 81308 Protein mass conc (U) TRACE Abnormal NEG [facility] Comment on above: Performed By: #### U AX, UMICAO #### [facility] [address] [place] [address] 77299 Spec. [place],Ur 1.029 Normal 1.005-1.030 [facility] Comment on above: Performed By: #### U AX, UMICAO #### [facility] [address] [place] [address] 00725 Turbidity TURBID Abnormal CLEAR [facility] Comment on above: Performed By: #### U AX, UMICAO #### [facility] [address] [place] [address] 06583 Urobilinogen,Ur Normal Normal NORM [facility] Comment on above: Performed By: #### U AX, UMICAO #### [facility] [address] [place] [address] 84796 Amorphous sediment LM Ql (Urine sed) NOT REPORTED Normal NONE [facility] Comment on above: Performed By: #### U AX, UMICAO #### [address] [address] Bacteria LM.HPF #/area (Urine sed) NOT REPORTED Normal NONE [facility] Comment on above: Performed By: #### U AX, UMICAO #### [address] 81636 Casts LM.LPF #/area (Urine sed) NOT REPORTED Normal 0-2 [facility] Comment on above: Performed By: #### U AX, UMICAO #### [address] [address]484 Epithelial, Renal NOT REPORTED Normal 0 [facility] Comment on above: Performed By: #### U AX, UMICAO #### [address] [address] Other Observations NOT REPORTED Normal NREQ [facility] Comment on above: Performed By: #### U AX, UMICAO #### [address] 269[address] Trichomonas NOT REPORTED Normal NONE [facility] Comment on above: Performed By: #### U AX, UMICAO #### [address] 17719 Yeast LM Ql (Urine sed) NOT REPORTED Normal NONE [facility] Comment on above: Performed By: #### U AX, UMICAO #### [address] [address] CBC with Diffon 12-06-2017 Abs. Basophil 0.04 k/uL Normal 0.00-0.20 [facility] Comment on above: Performed By: #### C P, TSH, FT4, CDP, LIPRF #### [address] [address]64 Abs.Imm.Granulocyte 0.04 k/uL Normal 0.00-0.30 [facility] Comment on above: Performed By: #### C P, TSH, FT4, CDP, LIPRF #### [address] 13905 Abs.Neutrophil (Seg) 4.84 k/uL Normal 1.50-8.10 [facility] Comment on above: Performed By: #### C P, TSH, FT4, CDP, LIPRF #### [address] 04146 Basophils/100 WBC (Bld) 1 % Normal 0-2 [facility] Comment on above: Performed By: #### C P, TSH, FT4, CDP, LIPRF #### [address] 97974 Eosinophils #/vol (Bld) 0.33 10*3/uL Normal 0.00-0.44 [facility] Comment on above: Performed By: #### C P, TSH, FT4, CDP, LIPRF #### [address] 10209 Eosinophils/100 WBC (Bld) 4 % Normal 1-4 [facility] Comment on above: Performed By: #### C P, TSH, FT4, CDP, LIPRF #### [address] 10727 Erythrocyte distribution width Ratio (RBC) 12.4 % Normal 11.8-14.4 [facility] Comment on above: Performed By: #### C P, TSH, FT4, CDP, LIPRF #### [address] 15735 Hematocrit Volume Fraction (Bld) 41.3 % Normal 36.3-47.1 [facility] Comment on above: Performed By: #### C P, TSH, FT4, CDP, LIPRF #### [address] 52971 Hemoglobin mass conc (Bld) 13.8 g/dL Normal 11.9-15.1 [facility] Comment on above: Performed By: #### C P, TSH, FT4, CDP, LIPRF #### [address] 81051 Immature granulocytes #/vol (Bld) 1 % High 0 [facility] Comment on above: Performed By: #### C P, TSH, FT4, CDP, LIPRF #### [address] 96263 Lymphocytes #/vol (Bld) 2.64 10*3/uL Normal 1.10-3.70 [facility] Comment on above: Performed By: #### C P, TSH, FT4, CDP, LIPRF #### [address] 78658 Lymphocytes/100 WBC (Bld) 30 % Normal 24-43 [facility] Comment on above: Performed By: #### C P, TSH, FT4, CDP, LIPRF #### [address] [address]307 MCH Entitic mass (RBC) 31.9 pg Normal 25.2-33.5 [facility] Comment on above: Performed By: #### C P, TSH, FT4, CDP, LIPRF #### [address] 06403 MCHC mass conc (RBC) 33.4 g/dL Normal 28.4-34.8 [facility] Comment on above: Performed By: #### C P, TSH, FT4, CDP, LIPRF #### [address] 55584 MCV Entitic volume (RBC) 95.6 fL Normal 82.6-102.9 [facility] Comment on above: Performed By: #### C P, TSH, FT4, CDP, LIPRF #### [address] [address]889 Monocytes #/vol (Bld) 0.90 10*3/uL Normal 0.10-1.20 [facility] Comment on above: Performed By: #### C P, TSH, FT4, CDP, LIPRF #### [address] 12848 Monocytes/100 WBC (Bld) 10 % Normal 3-12 [facility] Comment on above: Performed By: #### C P, TSH, FT4, CDP, LIPRF #### [address] 69147 Neutrophil (Seg) 54 % Normal 36-65 [facility] Comment on above: Performed By: #### C P, TSH, FT4, CDP, LIPRF #### [address] 93338 NRBC Automated 0.0 per 100 WBC Normal 0.0 [facility] Comment on above: Performed By: #### C P, TSH, FT4, CDP, LIPRF #### [address] 76150 Platelet mean volume Entitic volume (Bld) 9.4 fL Normal 8.1-13.5 [facility] Comment on above: Performed By: #### C P, TSH, FT4, CDP, LIPRF #### [address] 58397 Platelets #/vol (Bld) 374 10*3/uL Normal 138-453 [facility] Comment on above: Performed By: #### C P, TSH, FT4, CDP, LIPRF #### [address] 01745 RBC #/vol (Bld) 4.32 10*6/uL Normal 3.95-5.11 [facility] Comment on above: Performed By: #### C P, TSH, FT4, CDP, LIPRF #### [address] 73735 WBC #/vol (Bld) 8.8 10*3/uL Normal 3.5-11.3 [facility] Comment on above: Performed By: #### C P, TSH, FT4, CDP, LIPRF #### [address] [address]881 Auto Diff Performed NOT REPORTED Normal [facility] Comment on above: Performed By: #### C P, TSH, FT4, CDP, LIPRF #### [address] 65113 Platelets #/vol (Bld) NOT REPORTED Normal [facility] Comment on above: Performed By: #### C P, TSH, FT4, CDP, LIPRF #### [address] 69990 RBC morphology finding Nom (Bld) NOT REPORTED Normal [facility] Comment on above: Performed By: #### C P, TSH, FT4, CDP, LIPRF #### [address] 34708 WBC Morphology NOT REPORTED Normal [facility] Comment on above: Performed By: #### C P, TSH, FT4, CDP, LIPRF #### [address] [address]012 Comp Metabolic Profon 2017 (cont.) Normal [facility] Comment on above: Result Comment: Aver age GFR for 30-39 years old: 107 mL/min/1.73sq m Chronic Kidney Disease: <60 mL/min/1.73sq m Kidney failure: <15 mL/min/1.73sq m eGFR calculated using average adult body mass. Additional eGFR calculator available at: http://www.Infogram/multiple_crcl_2012.htm Performed By: #### C P, TSH, FT4, CDP, LIPRF #### [address] 88499 Albumin mass conc 4.3 g/dL Normal 3.5-5.2 [facility] Comment on above: Performed By: #### C P, TSH, FT4, CDP, LIPRF #### [address] [address]120 Albumin/Globulin mass ratio 1.5 {ratio} Normal 1.0-2.5 [facility] Comment on above: Performed By: #### C P, TSH, FT4, CDP, LIPRF #### [address] 05076 Alkaline Phos 64 U/L Normal 35-104 [facility] Comment on above: Performed By: #### C P, TSH, FT4, CDP, LIPRF #### [address] 18828 ALT enzyme act/vol 19 U/L Normal 5-33 [facility] Comment on above: Performed By: #### C P, TSH, FT4, CDP, LIPRF #### [address] 72988 Anion gap molar conc 10 mmol/L Normal 9-17 [facility] Comment on above: Performed By: #### C P, TSH, FT4, CDP, LIPRF #### [address] 47720 AST enzyme act/vol 15 U/L Normal <32 [facility] Comment on above: Performed By: #### C P, TSH, FT4, CDP, LIPRF #### [address] [address]293 Bilirubin Ql (U) 0.26 mg/dL Low 0.3-1.2 [facility] Comment on above: Performed By: #### C P, TSH, FT4, CDP, LIPRF #### [address] [address]93 Calcium mass conc 9.4 mg/dL Normal 8.6-10.4 [facility] Comment on above: Performed By: #### C P, TSH, FT4, CDP, LIPRF #### [address] [address] Chloride molar conc 105 mmol/L Normal 98-107 [facility] Comment on above: Performed By: #### C P, TSH, FT4, CDP, LIPRF #### [address] 93786 CO2 molar conc 25 mmol/L Normal 20-31 [facility] Comment on above: Performed By: #### C P, TSH, FT4, CDP, LIPRF #### [address] [address] Creatinine mass conc 0.79 mg/dL Normal 0.50-0.90 [facility] Comment on above: Performed By: #### C P, TSH, FT4, CDP, LIPRF #### [address] [address] GFR, Amer >60 Normal >60 [facility] Comment on above: Performed By: #### C P, TSH, FT4, CDP, LIPRF #### [address] [address] GFR,non Amer >60 Normal >60 [facility] Comment on above: Performed By: #### C P, TSH, FT4, CDP, LIPRF #### [facility] [address] [place] [address] 26268 Glucose mass conc 87 mg/dL Normal 70-99 [facility] Comment on above: Performed By: #### C P, TSH, FT4, CDP, LIPRF #### [facility] [address] [place] [address] 71339 Potassium molar conc 4.4 mmol/L Normal 3.7-5.3 [facility] Comment on above: Performed By: #### C P, TSH, FT4, CDP, LIPRF #### [facility] [address] [place] [address] 67237 Protein mass conc 7.1 g/dL Normal 6.4-8.3 [facility] Comment on above: Performed By: #### C P, TSH, FT4, CDP, LIPRF #### [facility] [address] [place] [address] 87301 Sodium molar conc 140 mmol/L Normal 135-144 [facility] Comment on above: Performed By: #### C P, TSH, FT4, CDP, LIPRF #### [address] [address] Urea nitrogen mass conc 13 mg/dL Normal 6-20 [facility] Comment on above: Performed By: #### C P, TSH, FT4, CDP, LIPRF #### [facility] [address] [place] [address] 01715 BUN/CRE Ratio NOT REPORTED Normal -20 [facility] Comment on above: Performed By: #### C P, TSH, FT4, CDP, LIPRF #### [address] [address] Staging: NOT REPORTED Normal [facility] Comment on above: Performed By: #### C P, TSH, FT4, CDP, LIPRF #### [address] [address] Lipid Prof, Fastingon 2017 Cholesterol in HDL mass conc 56 mg/dL Normal >40 [facility] Comment on above: Result Comment: HDL Guidelines: <40 Undesirable 40-59 Borderline >59 Desirable Performed By: #### C P, TSH, FT4, CDP, LIPRF #### [address] [address] Cholesterol in LDL mass conc 107 mg/dL Normal 0-130 [facility] Comment on above: Result Comment: LDL Guidelines: <100 Desirable 100-129 Near to/above Desirable 130-159 Borderline >159 Undesirable Direct (measured) LDL and calculated LDL are not interchangeable tests. Performed By: #### C P, TSH, FT4, CDP, LIPRF #### [address] [address] Cholesterol mass conc 179 mg/dL Normal <200 [facility] Comment on above: Result Comment: Cholesterol Guidelines: <200 Desirable 200-240 Borderline >240 Undesirable Performed By: #### C P, TSH, FT4, CDP, LIPRF #### [address] [address] Cholesterol.total/Cho lesterol in HDL mass ratio 3.2 {ratio} Normal <5 [facility] Comment on above: Performed By: #### C P, TSH, FT4, CDP, LIPRF #### [address] [address] Triglyceride,Fasting 82 mg/dL Normal <150 [facility] Comment on above: Result Comment: Triglyceride Guidelines: <150 Desirable 150-199 Borderline 200-499 High >499 Very high Based on AHA Guidelines for fasting triglyceride, November 2011. Performed By: #### C P, TSH, FT4, CDP, LIPRF #### [address] [address] Cholesterol in VLDL mass conc NOT REPORTED Normal 03-07 [facility] Comment on above: Performed By: #### C P, TSH, FT4, CDP, LIPRF #### [address] [address] Thyroid Stim. Horm.on 2017 Thyrotropin Qn 1.71 m[IU]/L Normal 0.30-5.00 [facility] Comment on above: Performed By: #### C P, TSH, FT4, CDP, LIPRF #### [address] [address] Thyroxine, Freeon 12-06-2017 Thyroxine, Free 1.06 ng/dL Normal 0.93-1.70 [facility] Comment on above: Performed By: #### C P, TSH, FT4, CDP, LIPRF #### [address] [address] Cult,Urineon 08-09-2017 Cult,Urine Specimen Description .CLEAN CATCH URINE Special Requests NOT REPORTED Culture ESCHERICHIA COLI >[id number] CFU/ML Report Status FINAL 08/08/2017 SUSCEPTIBILITY Organism [...] >=320 RESISTANT Piperacillin/Tazobac richards <=4 SUSCEPTIBLE Normal [facility] Comment on above: Performed By: #### U RC #### [address] [address] Urinalysis w/ Microon 2017 ----- Normal [facility] Comment on above: Performed By: #### U AMIC #### [address] [address] Acetoacetic Acid,Ur Negative Normal NEG [facility] Comment on above: Performed By: #### U AMIC #### [address] [address] Bacteria LM.HPF #/area (Urine sed) MANY Abnormal NONE [facility] Comment on above: Performed By: #### U AMIC #### [address] [address] Bilirubin, SemiQt,Ur Negative Normal NEG [facility] Comment on above: Performed By: #### U AMIC #### [address] [address] Casts LM.LPF #/area (Urine sed) 0 TO 2 HYALINE Normal 0-8 [facility] Comment on above: Result Comment: Refe rence range defined for non-centrifuged specimen. Performed By: #### U AMIC #### [address] [address] Color Nom (U) YELLOW Normal YEL [facility] Comment on above: Performed By: #### U AMIC #### [address] [address] Epithelial cells LM.HPF #/area (Urine sed) 2 TO 5 Normal 0-5 [facility] Comment on above: Performed By: #### U AMIC #### [address] [address] Glucose,Semi-qnt,Ur Negative Normal NEG [facility] Comment on above: Performed By: #### U AMIC #### [address] [place] [address] Hemoglobin, Ur TRACE Abnormal NEG [facility] Comment on above: Performed By: #### U AMIC #### [address] [address] Leuckocyte Esterase LARGE Abnormal NEG [facility] Comment on above: Performed By: #### U AMIC #### [address] [address] Nitrite,Ur Negative Normal NEG [facility] Comment on above: Performed By: #### U AMIC #### [address] [address] PH,Ur 5.5 Normal 5.0-8.0 [facility] Comment on above: Performed By: #### U AMIC #### [address] [address] Protein mass conc (U) TRACE Abnormal NEG [facility] Comment on above: Performed By: #### U AMIC #### [address] [address] RBC #/vol (U) 5 TO 10 Normal 0-4 [facility] Comment on above: Result Comment: Refe rence range defined for non-centrifuged specimen. Performed By: #### U AMIC #### [address] [address] Spec. [place],Ur 1.017 Normal 1.005-1.030 [facility] Comment on above: Performed By: #### U AMIC #### [address] [address] Turbidity CLOUDY Abnormal CLEAR [facility] Comment on above: Performed By: #### U AMIC #### [address] [address] Urobilinogen,Ur Normal Normal NORM [facility] Comment on above: Performed By: #### U AMIC #### [address] [address] WBC #/vol (U) TOO NUMEROUS TO COUNT Normal 0-5 [facility] Comment on above: Performed By: #### U AMIC #### [address] [address] Amorphous sediment LM Ql (Urine sed) NOT REPORTED Normal NONE [facility] Comment on above: Performed By: #### U AMIC #### [address] [address] Crystals LM Nom (Urine sed) NOT REPORTED Normal NONE [facility] Comment on above: Performed By: #### U AMIC #### [address] [address] Epithelial, Renal NOT REPORTED Normal 0 [facility] Comment on above: Performed By: #### U AMIC #### [address] [address] Mucus Strands NOT REPORTED Normal NONE [facility] Comment on above: Performed By: #### U AMIC #### [facility] [address] [place] [address] Other Observations NOT REPORTED Normal NREQ [facility] Comment on above: Performed By: #### U AMIC #### [facility] [address] [place] [address] Trichomonas NOT REPORTED Normal NONE [facility] Comment on above: Performed By: #### U AMIC #### [facility] [address] [place] [address] Yeast LM Ql (Urine sed) NOT REPORTED Normal [facility] Comment on above: Performed By: #### U AMIC #### [facility] [address] [place] [address] Cult,Urineon 08-04-2017 Cult,Urine Specimen Description .URINE Special Requests NOT REPORTED Culture ESCHERICHIA COLI >[id number] CFU/ML Report Status FINAL 08/04/2017 SUSCEPTIBILITY Organism [...] >=320 RESISTANT Piperacillin/Tazobac richards <=4 SUSCEPTIBLE Normal [facility] Comment on above: Performed By: #### U RC #### [facility] [address] [place] [address] UA w/Reflex Cultureon 2017 Acetoacetic Acid,Ur TRACE Abnormal NEG [facility] Comment on above: Performed By: #### MAO MASTERS #### [facility] [address] [place] [address] Bilirubin.direct mass conc Negative Normal NEG [facility] Comment on above: Performed By: #### U AXMAO #### [facility] [address] [place] [address] Color Nom (U) YELLOW Normal YEL [facility] Comment on above: Performed By: #### U AXMAO #### [facility] [address] [place] [address] Glucose mass conc Negative Normal NEG [facility] Comment on above: Performed By: #### U AXMAO #### [facility] [address] [place] [address] Hemoglobin mass conc (Bld) TRACE Abnormal NEG [facility] Comment on above: Performed By: #### MAO MASTERS #### [facility] [address] [place] [address] Leuckocyte Esterase MODERATE Abnormal NEG [facility] Comment on above: Performed By: #### MAO MASTERS #### [facility] [address] [place] [address] Nitrite,Ur Negative Normal NEG [facility] Comment on above: Performed By: #### MAO MASTERS #### [facility] [address] [place] [address] PH,Ur 5.0 Normal 5.0-8.0 [facility] Comment on above: Performed By: #### MAO MASTERS #### [facility] [address] [place] [address] 35874 Protein mass conc TRACE Abnormal NEG [facility] Comment on above: Performed By: #### MAO MASTERS #### [facility] [address] [place] [address] Spec. [place],Ur 1.024 Normal 1.005-1.030 [facility] Comment on above: Performed By: #### MAO MASTERS #### [facility] [address] [place] [address] Turbidity CLOUDY Abnormal CLEAR [facility] Comment on above: Performed By: #### MAO MASTERS #### [facility] [address] [place] [address] Urobilinogen,Ur Normal Normal NORM [facility] Comment on above: Performed By: #### MAO MASTERS #### [facility] [address] [place] [address] Comment NOT REPORTED Normal [facility] Comment on above: Performed By: #### U AXMAO #### [facility] [address] [place] [address] Urinalysis,Microon 8 ----- Normal [facility] Comment on above: Performed By: #### U AXMAO #### [facility] [address] [place] [address] Bacteria LM.HPF #/area (Urine sed) MANY Abnormal NONE [facility] Comment on above: Performed By: #### U AXMAO #### [facility] [address] [place] [address] Casts LM.LPF #/area (Urine sed) 10 TO 20 HYALINE Normal 0-8 [facility] Comment on above: Result Comment: Refe rence range defined for non-centrifuged specimen. Performed By: #### U AXMAO #### [facility] [address] [place] [address] Epithelial cells LM.HPF #/area (Urine sed) 2 TO 5 Normal 0-5 [facility] Comment on above: Performed By: #### U AXMAO #### [facility] [address] [place] [address] RBC #/vol (U) 10 TO 20 Normal 0-4 [facility] Comment on above: Result Comment: Refe rence range defined for non-centrifuged specimen. Performed By: #### U AXMAO #### [facility] [address] [place] [address] WBC #/vol (U) TOO NUMEROUS TO COUNT Normal 0-5 [facility] Comment on above: Performed By: #### U AXMAO #### [facility] [address] [place] [address] Amorphous sediment LM Ql (Urine sed) NOT REPORTED Normal NONE [facility] Comment on above: Performed By: #### U AXMAO #### [facility] [address] [place] [address] Crystals LM Nom (Urine sed) NOT REPORTED Normal NONE [facility] Comment on above: Performed By: #### U AXMAO #### [facility] [address] [place] [address] Epithelial, Renal NOT REPORTED Normal 0 [facility] Comment on above: Performed By: #### U AXMAO #### [facility] [address] [place] [address] Mucus Strands NOT REPORTED Normal NONE [facility] Comment on above: Performed By: #### U AXMAO #### [facility] [address] [place] [address] Other Observations NOT REPORTED Normal NREQ [facility] Comment on above: Performed By: #### U AXMAO #### [facility] [address] [place] [address] Trichomonas NOT REPORTED Normal NONE [facility] Comment on above: Performed By: #### U AXMAO #### [facility] [address] [place] [address] Yeast LM Ql (Urine sed) NOT REPORTED Normal NONE [facility] Comment on above: Performed By: #### U AXMAO #### [facility] [address] [place] [address] Encounters Encounter Date Encounter Type Care Provider Facility Start: 08-12-2024 ambulatory Jaylen Mac acility:[facility] Start: 07-29-2024 End: 07-29-2024 Emergency department patient visit Alishalucienjeovanny Barton [facility] Start: 07-26-2024 End: 07-27-2024 Emergency department patient visit Nirmala Moser [facility] Start: 08-13-2021 End: 08-14-[address] DOCTOR REYNAGA Facility:[facility] Start: 10-14-2020 End: 10-15-2020 ambulatory ARLENE GARRETT Facility:[facility] Start: 09-03-2020 End: 09-04-2020 ambulatory [facility] Start: 09-03-2020 End: 09-03-2020 Subsequent [facility] by [facility] Start: 11-29-2019 End: 11-30-2019 ambulatory [facility] Start: 11-29-2019 End: 11-29-2019 Subsequent hospital visit by physician [facility] Start: 11-15-2019 End: 11-16-2019 ambulatory [facility]ANNING [facility] Start: 11-15-2019 End: 11-15-2019 Subsequent hospital visit by physician [facility] Start: 11-14-2019 End: 11-15-2019 ambulatory CHANNING [facility] Start: 11-14-2019 End: 11-14-2019 Subsequent hospital visit by [facility] Start: 12-30-2018 End: 01-02-2019 Evaluation and management of inpatient IRISH WOODSON Facility:[facility] Start: 06-10-2018 End: 06-11-2018 Emergency department patient visit JOSUÉ HECTOR [facility] Start: 06-08-2018 End: 06-08-2018 Emergency department patient visit TIMBO GOODWIN [facility] Start: 06-04-2018 End: 06-04-2018 Emergency department patient visit BALJEET LIVINGSTON [facility] Start: 03-21-2018 End: 03-21-2018 Emergency department patient visit ERVIN MARTINEZ [facility] Start: 12-06-2017 End: 12-07-2017 Patient encounter procedure KI PALAFOX [facility] Start: 08-07-2017 End: 08-07-2017 Emergency department patient visit ERVIN MARTINEZ [facility] Start: 08-03-2017 End: 08-03-2017 Emergency department patient visit ERVIN MARTINEZ [facility] Procedures Date Procedure Procedure Detail Performing Clinician Start: 09-03-2020 Antibody hiv-1&hiv-2 single result Channing Yin [employer] Work Phone: Start: 09-03-2020 Comprehensive metabo lic panel Channing Yin [employer] Work Phone: Start: 11-15-2019 Antibody hiv-1&hiv-2 single result CHANNING YIN Start: 11-15-2019 Blood count complete automated CHANNING YIN Start: 11-15-2019 Acute hepatitis panel E kvng Yin Work Phone: Start: 11-15-2019 Antibody hiv-1&hiv-2 single result Channing Yin Work Phone: Start: 11-15-2019 Blood count complete automated Channing Yin Work Phone: Start: 11-15-2019 Comprehensive metabo lic panel Channing Yin Work Phone: Start: 11-15-2019 Gonadotropin chorion ic qualitative Channing Yin Work Phone: Start: 11-15-2019 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 CHANNING YIN Start: 06-10-2018 Ct abdomen & [...] 08-03-2017 [facility] age 11/> Astrit Shanti Plan of Treatment Date Care Activity Detail Author Start: 10-07-2020 Influenza vaccination Flu vaccine (# 1) [facility] Phone: Start: 10-08-2019 Influenza vaccination Flu vaccine (# 1) [place], [place] Start: 2005 Screening for malign ant neoplasm of cervix Cervical cancer screen [place], [place] Start: 06-22-2003 DTaP/Tdap/Td vaccine (1 - Tdap) DTaP/Tdap/Td vaccine (1 - Tdap) [place] Start: 06-22-1999 HIV screening HIV screen [place], [place] Start: 1996 COVID-19 Vaccine (1) COVID-19 Vaccin e (1) [facility] Phone: Start: 1990 Pneumococcal 0-64 ye ars Vaccine (1 of 1 - PPSV23) Pneumococcal 0-64 years Vaccine (1 of 1 - PPSV23) [place], [place] Start: 1990 Pneumococcal 0-64 ye ars Vaccine (1 of 2 - PPSV23) Pneumococcal 0-64 years Vaccine (1 of 2 - PPSV23) [facility] Phone: Start: 1985 Varicella vaccine (1 of 2 - 2-dose childhood series) Varicella vaccine (1 of 2 - 2-dose childhood series) [place] End: 11-15-2019 Hepatitis C RNA, quantitative, PCR Hepatitis C RNA, quantitative, PCR Lab Routine Once for 1 Occurrences starting 11/15/2019 until 11/15/2019 [place] Comment on above: Once for 1 Occurrenc es starting 11/15/2019 until 11/15/2019 Hepatitis C RNA, quantitative, PCR Hepatitis C RNA, quantitative, PCR Lab Routine 11/15/2019 4:51 AM EDT [place], [place] Payers Date Payer Category Payer Private Health Insurance [id number] 2024 Unknown [id number] 2022 Self-pay 1984 Unknown [id number] 2.16.8 [id number] 1984 Unknown [id number] 2.16.8 [id number] 1984 Unknown [id number] 2.16.8 40.1.280806.3.579.2.175 1984 Unknown [id number] 2.16.8 40.1.775714.3.579.2.175 1984 Unknown [id number] 2.16.8 40.1.907134.3.579.2.175 1984 Unknown [id number] 2.16.8 40.1.664520.3.579.2.175 1984 Unknown [id number] 2.16.8 40.1.151920.3.579.2.175 1984 Unknown [id number] 2.16.8 40.1.542250.3.579.2.647 1984 Unknown [id number] 2.16.8 40.1.771618.3.579.2.173 1984 Unknown [id number] 2.16.8 40.1.011663.3.579.2.173 1984 Unknown [id number] 2.16.8 40.1.842928.3.579.2.173 1984 Unknown [id number] 2.16.8 40.1.970461.3.579.2.173 1984 Unknown [id number] 2.16.84 0.1.531356.3.579.2.593 1984 Unknown [id number] 2.16.84 0.1.135981.3.579.2.593 1984 Unknown [id number] 2.16.8 40.1.823710.3.579.2.727 1984 Unknown [id number] 2.16.8 40.1.226754.3.579.2.727 1984 Unknown [id number] 2.16.8 40.1.202376.3.579.2.727 1959 Unknown [id number] Unknown [id number] 2.16.8 40.1.401254.3.579.2.531 Social History Date Type Detail Facility Start: 06-10-[facility] [place] History of tobacco use Cigarette Smoker [place] Start: 06-10-2018 Cigarettes smoked current (pack per day) - Reported [place] Start: 06-10-2018 Tobacco use and exposure Never used [place] Start: 06-10-2018 Alcohol intake Current non-dr idea man of alcohol (finding) [place] Start: 1985 Sex Assigned At Not on file [place] Start: 04-09-2020 Tobacco smoking status Heavy t obacco smoker (finding) [facility] Sexual Orientation [facility] Sex Assigned At Female [facility] Start: 05-20-2009 Sex Female (finding) [facility] Hospital Discharge instructions 07-29-2024 Note Date & Type Note Facility 07-29-2024 Hospital Discharg e instructions Patient Education 07/29/2024 21:43:40 Peripheral Edema Peripheral Edema Peripheral edema is swelling that is caused by a buildup of fluid. Peripheral edema most often affects the lower legs, ankles, and feet. It can also develop in the arms, hands, and face. The area of the body that has peripheral edema will look swollen. It may also feel heavy or warm. Your clothes may start to feel tight. Pressing on the area may make a temporary dent in your skin (pitting edema). You may not be able to move your swollen arm or leg as much as usual. There are many causes of peripheral edema. It can happen because of a complication of other conditions such as heart failure, kidney disease, or a problem with your circulation. It also can be a side effect of certain medicines or happen because of an infection. It often happens to women during . Sometimes, the cause is not known. Follow these instructions at home: Managing pain, stiffness, and swelling Raise (elevate) your legs while you are sitting or lying down. Move around often to prevent stiffness and to reduce swelling. Do not sit or stand for long periods of time. Do not wear tight clothing. Do not wear garters on your upper legs. Exercise your legs to get your circulation going. This helps to move the fluid back into your blood vessels, and it may help the swelling go down. Wear compression stockings as told by your health care provider. These stockings help to prevent blood clots and reduce swelling in your legs. It is important that these are the correct size. These stockings should be prescribed by your doctor to prevent possible injuries. If elastic bandages or wraps are recommended, use them as told by your health care provider. Medicines Take fhcg-yxi-mxvhagi and prescription medicines only as told by your health care provider. Your health care provider may prescribe medicine to help your body get rid of excess water (diuretic). Take this medicine if you are told to take it. General instructions Eat a low-salt (low-sodium) diet as told by your health care provider. Sometimes, eating less salt may reduce swelling. Pay attention to any changes in your symptoms. Moisturize your skin daily to help prevent skin from cracking and draining. Keep all follow-up visits. This is important. Contact a health care provider if: You have a fever. You have swelling in only one leg. You have increased swelling, redness, or pain in one or both of your legs. You have drainage or sores at the area where you have edema. Get help right away if: You have edema that starts suddenly or is getting worse, especially if you are or have a medical condition. You develop shortness of breath, especially when you are lying down. You have pain in your chest or abdomen. You feel weak. You feel like you will faint. These symptoms may be an emergency. Get help right away. Call 911. Do not wait to see if the symptoms will go away. Do not drive yourself to the hospital. Summary Peripheral edema is swelling that is caused by a buildup of fluid. Peripheral edema most often affects the lower legs, ankles, and feet. Move around often to prevent stiffness and to reduce swelling. Do not sit or stand for long periods of time. Pay attention to any changes in your symptoms. Contact a health care provider if you have edema that starts suddenly or is getting worse, especially if you are or have a medical condition. Get help right away if you develop shortness of breath, especially when lying down. This information is not intended to replace advice given to you by your health care provider. Make sure you discuss any questions you have with your health care provider. Document Revised: 09/27/2021 Document Reviewed: 09/27/2021 [employer]. Patient Education 2023 [employer] 07/29/2024 21:43:40 Cellulitis, Adult, Imkp-jr-Yvbj Cellulitis, Adult Cellulitis is a skin infection. The infected area is often warm, red, swollen, and sore. It occurs most often on the legs, feet, and toes, but can happen on any part of the body. This condition can be life-threatening without treatment. It is very important to get treated right away. What are the causes? This condition is caused by bacteria. The bacteria enter through a break in the skin, such as: A cut. A burn. A bug bite. An animal bite. An open sore. A crack. What increases the risk? Having a weak body's defense system (immune system). Being older than 60 years old. Having a blood sugar problem (diabetes). Having a long-term liver disease (cirrhosis) or kidney disease. Being very overweight (obese). Having a skin problem, such as: ?An itchy rash. ?A rash caused by a fungus. ?A rash with blisters. ?Slow movement of blood in the veins (venous stasis). ?Fluid buildup below the skin (edema). This condition is more likely to occur in people who: Have open cuts, boudreaux, bites, or scrapes on the skin. Have been treated with high-energy rays (radiation). Use IV drugs. What are the signs or symptoms? Skin that: ?Looks red or purple, or slightly darker than your usual skin color. ?Has streaks. ?Has spots. ?Is swollen. ?Is sore or painful when you touch it. ?Is warm. A fever. Chills. Blisters. Tiredness (fatigue). How is this treated? Medicines to treat infections or allergies. Rest. Placing cold or warm cloths on the skin. Staying in the hospital, if the condition is very bad. You may need medicines through an IV. Follow these instructions at home: Medicines Take jzln-aqi-nrwzrms and prescription medicines only as told by your doctor. If you were prescribed antibiotics, take them as told by your doctor. Do not stop using them even if you start to feel better. General instructions Drink enough fluid to keep your pee (urine) pale yellow. Do not touch or rub the infected area. Raise (elevate) the infected area above the level of your heart while you are sitting or lying down. Return to your normal activities when your doctor says that it is safe. Place cold or warm cloths on the area as told by your doctor. Keep all follow-up visits. Your doctor will need to make sure that a more serious infection is not developing. Contact a doctor if: You have a fever. You do not start to get better after 1 2 days of treatment. Your bone or joint under the infected area starts to hurt after the skin has healed. Your infection comes back in the same area or another area. Signs of this may include: ?You have a swollen bump in the area. ?Your red area gets larger, turns dark in color, or hurts more. ?You have more fluid coming from the wound. ?Pus or a bad smell develops in your infected area. ?You have more pain. You feel sick and have muscle aches and weakness. You develop vomiting or watery poop that will not go away. Get help right away if: You see red streaks coming from the area. You notice the skin turns purple or black and falls off. These symptoms may be an emergency. Get help right away. Call 911. Do not wait to see if the symptoms will go away. Do not drive yourself to the hospital. This information is not intended to replace advice given to you by your health care provider. Make sure you discuss any questions you have with your health care provider. Document Revised: 09/20/2022 Document Reviewed: 09/20/2022 Auto I[employer]D. Patient Education 2023 [employer]. Follow Up Care 07/29/2024 19:21:34 With:Irma Morales Address: [place] [place] [address]- Business (1) When:08/01/2024 21:22:04 Comments:Stop the Bactrim and stop applying Neosporin to the area. Start the doxycycline tomorrow twice a day and to complete the course. If symptoms worsen please return to the ED as I believe you would need IV antibiotics at that point. With:XXXX NONE Address: [place] When:Within 3 Day(s) [facility] Clinical Note 07-29-2024 Note Date & Type Note Facility 07-29-2024 Note ED Patient Education Note Infectious Disease Cellulitis, Adult Cellulitis is a skin infection. The infected area is often warm, red, swollen, and sore. It occurs most often on the legs, feet, and toes, but can happen on any part of the body. This condition can be life-threatening without treatment. It is very important to get treated right away. What are the causes? This condition is caused by bacteria. The bacteria enter through a break in the skin, such as: ??? A cut. ??? A burn. ??? A bug bite. ??? An animal bite. ??? An open sore. ??? A crack. What increases the risk? Having a weak body's defense system (immune system). ??? Being older than 60 years old. ??? Having a blood sugar problem (diabetes). ??? Having a long-term liver disease (cirrhosis) or kidney disease. ??? Being very overweight (obese). ??? Having a skin problem, such as: ? An itchy rash. ? A rash caused by a fungus. ? A rash with blisters. ? Slow movement of blood in the veins (venous stasis). ? Fluid buildup below the skin (edema). This condition is more likely to occur in people who: ??? Have open cuts, boudreaux, bites, or scrapes on the skin. ??? Have been treated with high-energy rays (radiation). ??? Use IV drugs. What are the signs or symptoms? Skin that: ? Looks red or purple, or slightly darker than your usual skin color. ? Has streaks. ? Has spots. ? Is swollen. ? Is sore or painful when you touch it. ? Is warm. ??? A fever. ??? Chills. ??? Blisters. ??? Tiredness (fatigue). How is this treated? Medicines to treat infections or allergies. ??? Rest. ??? Placing cold or warm cloths on the skin. ??? Staying in the hospital, if the condition is very bad. You may need medicines through an IV. Follow these instructions at home: Medicines ??? Take vnkr-ouw-ppeppvp and prescription medicines only as told by your doctor. ??? If you were prescribed antibiotics, take them as told by your doctor. Do not stop using them even if you start to feel better. General instructions ??? Drink enough fluid to keep your pee (urine) pale yellow. ??? Do not touch or rub the infected area. ??? Raise (elevate) the infected area above the level of your heart while you are sitting or lying down. ??? Return to your normal activities when your doctor says that it is safe. ??? Place cold or warm cloths on the area as told by your doctor. ??? Keep all follow-up visits. Your doctor will need to make sure that a more serious infection is not developing. Contact a doctor if: ??? You have a fever. ??? You do not start to get better after 1?2 days of treatment. ??? Your bone or joint under the infected area starts to hurt after the skin has healed. ??? Your infection comes back in the same area or another area. Signs of this may include: ? You have a swollen bump in the area. ? Your red area gets larger, turns dark in color, or hurts more. ? You have more fluid coming from the wound. ? Pus or a bad smell develops in your infected area. ? You have more pain. ??? You feel sick and have muscle aches and weakness. ??? You develop vomiting or watery poop that will not go away. Get help right away if: ??? You see red streaks coming from the area. ??? You notice the skin turns purple or black and falls off. These symptoms may be an emergency. Get help right away. Call 911. ??? Do not wait to see if the symptoms will go away. ??? Do not drive yourself to the hospital. This information is not intended to replace advice given to you by your health care provider. Make sure you discuss any questions you have with your health care provider. Document Revised: 09/20/2022 Document Reviewed: 09/20/2022 Auto I.D. Patient Education ? 2023 [employer]. Nephrology Peripheral Edema Peripheral edema is swelling that is caused by a buildup of fluid. Peripheral edema most often affects the lower legs, ankles, and feet. It can also develop in the arms, hands, and face. The area of the body that has peripheral edema will look swollen. It may also feel heavy or warm. Your clothes may start to feel tight. Pressing on the area may make a temporary dent in your skin (pitting edema). You may not be able to move your swollen arm or leg as much as usual. There are many causes of peripheral edema. It can happen because of a complication of other conditions such as heart failure, kidney disease, or a problem with your circulation. It also can be a side effect of certain medicines or happen because of an infection. It often happens to women during . Sometimes, the cause is not known. Follow these instructions at home: Managing pain, stiffness, and swelling ??? Raise (elevate) your legs while you are sitting or lying down. ??? Move around often to prevent stiffness and to reduce swelling. ??? Do not sit or sta (more content not included)... [facility] Evaluation + Plan note 07-29-2024 Note Date & Type Note Facility 07-29-2024 Evaluation + Plan note Extrac mauro from: Title:ED Note Author:Oralia Alishachad Hall Date :07/29/24 Cellulitis of leg (L03.119: Cellulitis of unspecified part of limb) Peripheral edema (R60.0: Localized edema) Orders: doxycycline, 100 mg = 1 tab(s), Oral, q12hr, X 10 day(s), # 20 tab(s), Refills(s) 0, Pharmacy: [facility]/pharmacy #[id number], 165, cm, 07/29/24 19:32:00 EDT, Height/Length Dosing, 123.4, kg, 07/29/24 19:32:00 EDT, Weight Dosing vancomycin + Generic Diluent 300 mL, Reason for Vancomycin: MRSA colonization or infection, 1,500 mg = 300 mL, Soln-IV, IV Piggyback, Once, Stop date 07/29/24 20:00:00 EDT, Routine, Start date 07/29/24 20:00:00 EDT, Infuse over 90 minute(s) B-Type Natriuretic Peptide Basic Metabolic Panel C-Reactive Protein CBC w/ Auto Diff eGFR Extra Blue Tube Extra SST Tube US Lower Extremity Venous Duplex Bilateral [facility] Hospital Discharge instructions 07-27-2024 Note Date & Type Note Facility 07-27-2024 Hospital Discharg e instructions Patient Education 07/27/2024 00:18:00 Edema Edema Edema is an abnormal buildup of fluids in the body tissues and under the skin. Swelling of the legs, feet, and ankles is a common symptom that becomes more likely as you get older. Swelling is also common in looser tissues, such as around the eyes. Pressing on the area may make a temporary dent in your skin (pitting edema). This fluid may also accumulate in your lungs (pulmonary edema). There are many possible causes of edema. Eating too much salt (sodium) and being on your feet or sitting for a long time can cause edema in your legs, feet, and ankles. Common causes of edema include: Certain medical conditions, such as heart failure, liver or kidney disease, and cancer. Weak leg blood vessels. An injury. . Medicines. Being obese. Low protein levels in the blood. Hot weather may make edema worse. Edema is usually painless. Your skin may look swollen or shiny. Follow these instructions at home: Medicines Take awte-bdq-scshrnd and prescription medicines only as told by your health care provider. Your health care provider may prescribe a medicine to help your body get rid of extra water (diuretic). Take this medicine if you are told to take it. Eating and drinking Eat a low-salt (low-sodium) diet to reduce fluid as told by your health care provider. Sometimes, eating less salt may reduce swelling. Depending on the cause of your swelling, you may need to limit how much fluid you drink (fluid restriction). General instructions Raise (elevate) the injured area above the level of your heart while you are sitting or lying down. Do not sit still or stand for long periods of time. Do not wear tight clothing. Do not wear garters on your upper legs. Exercise your legs to get your circulation going. This helps to move the fluid back into your blood vessels, and it may help the swelling go down. Wear compression stockings as told by your health care provider. These stockings help to prevent blood clots and reduce swelling in your legs. It is important that these are the correct size. These stockings should be prescribed by your health care provider to prevent possible injuries. If elastic bandages or wraps are recommended, use them as told by your health care provider. Contact a health care provider if: Your edema does not get better with treatment. You have heart, liver, or kidney disease and have symptoms of edema. You have sudden and unexplained weight gain. Get help right away if: You develop shortness of breath or chest pain. You cannot breathe when you lie down. You develop pain, redness, or warmth in the swollen areas. You have heart, liver, or kidney disease and suddenly get edema. You have a fever and your symptoms suddenly get worse. These symptoms may be an emergency. Get help right away. Call 911. Do not wait to see if the symptoms will go away. Do not drive yourself to the hospital. Summary Edema is an abnormal buildup of fluids in the body tissues and under the skin. Eating too much salt (sodium)and being on your feet or sitting for a long time can cause edema in your legs, feet, and ankles. Raise (elevate) the injured area above the level of your heart while you are sitting or lying down. Follow your health care provider's instructions about diet and how much fluid you can drink. This information is not intended to replace advice given to you by your health care provider. Make sure you discuss any questions you have with your health care provider. Document Revised: 09/27/2021 Document Reviewed: 09/27/2021 Auto I.D. Patient Education 2023 [employer]. 07/27/2024 00:18:00 Cellulitis, Adult Cellulitis, Adult Cellulitis is a skin infection. The infected area is usually warm, red, swollen, and tender. It most commonly occurs on the lower body, such as the legs, feet, and toes, but this condition can occur on any part of the body. The infection can travel to the muscles, blood, and underlying tissue and become life-threatening without treatment. It is important to get medical treatment right away for this condition. What are the causes? Cellulitis is caused by bacteria. The bacteria enter through a break in the skin, such as a cut, burn, insect or animal bite, open sore, or crack. What increases the risk? This condition is more likely to occur in people who: Have a weak body's defense system (immune system). Are older than 60 years old. Have diabetes. Have a type of long-term (chronic) liver disease (cirrhosis) or kidney disease. Are obese. Have a skin condition such as: ?An itchy rash, such as eczema or psoriasis. ?A fungal rash on the feet or in skinfolds. ?Blistering rashes, such as shingles or chickenpox. ?Slow movement of blood in the veins (venous stasis). ?Fluid buildup below the skin (edema). Have open wounds on the skin, such as cuts, puncture wounds, boudreaux, bites, scrapes, tattoos, piercings, or wounds from surgery. Have had radiation therapy. Use IV drugs. What are the signs or symptoms? Symptoms of this condition include: Skin that looks red, purple, or slightly darker than your usual skin color. Streaks or spots on the skin. Swollen area of the skin. Tenderness or pain when an area of the skin is touched. Warm skin. Fever or chills. Blisters. Tiredness (fatigue). How is this diagnosed? This condition is diagnosed based on a medical history and physical exam. You may also have tests, including: Blood tests. Imaging tests. Tests on a sample of fluid taken from the wound (wound culture). How is this treated? Treatment for this condition may include: Medicines. These may include antibiotics or medicines to treat allergies (antihistamines). Rest. Applying cold or warm wet cloths (compresses) to the skin. If the condition is severe, you may need to stay in the hospital and get antibiotics through an IV. The infection usually starts to get better within 1 2 days of treatment. Follow these instructions at home: Medicines Take rlrv-owl-yzbzgqk and prescription medicines only as told by your health care provider. If you were prescribed antibiotics, take them as told by your provider. Do not stop using the antibiotic even if you start to feel better. General instructions Drink enough fluid to keep your pee (urine) pale yellow. Do not touch or rub the infected area. Raise (elevate) the infected area above the level of your heart while you are sitting or lying down. Return to your normal activities as told by your provider. Ask your provider what activities are safe for you. Apply warm or cold compresses to the affected area as told by your provider. Keep all follow-up visits. Your provider will need to make sure that a more serious infection is not developing. Contact a health care provider if: You have a fever. Your symptoms do not improve within 1 2 days of starting treatment or you develop new symptoms. Your bone or joint underneath the infected area becomes painful after the skin has healed. Your infection returns in the same area or another area. Signs of this may include: ?You notice a swollen bump in the infected area. ?Your red area gets larger, turns dark in color, or becomes more painful. ?Drainage increases. ?Pus or a bad smell develops in your infected area. ?You have more pain. You feel ill and have muscle aches and weakness. You develop vomiting or diarrhea that will not go away. Get help right away if: You notice red streaks coming from the infected area. You notice the skin turns purple or black and falls off. This symptom may be an emergency. Get help right away. Call 911. Do not wait to see if the symptom will go away. Do not drive yourself to the hospital. This information is not intended to replace advice given to you by your health care provider. Make sure you discuss any questions you have with your health care provider. Document Revised: 09/20/2022 Document Reviewed: 09/20/2022 [employer] Patient Education 2023 [employer]. Follow Up Care 07/26/2024 22:36:52 With:Ajith Link Address: [address] [address]- Business (1) When:07/29/2024 [facility] Clinical Note 07-27-2024 Note Date & Type Note Facility 07-27-2024 Note ED Patient Education Note Infectious Disease Cellulitis, Adult Cellulitis is a skin infection. The infected area is usually warm, red, swollen, and tender. It most commonly occurs on the lower body, such as the legs, feet, and toes, but this condition can occur on any part of the body. The infection can travel to the muscles, blood, and underlying tissue and become life-threatening without treatment. It is important to get medical treatment right away for this condition. What are the causes? Cellulitis is caused by bacteria. The bacteria enter through a break in the skin, such as a cut, burn, insect or animal bite, open sore, or crack. What increases the risk? This condition is more likely to occur in people who: ??? Have a weak body's defense system (immune system). ??? Are older than 60 years old. ??? Have diabetes. ??? Have a type of long-term (chronic) liver disease (cirrhosis) or kidney disease. ??? Are obese. ??? Have a skin condition such as: ? An itchy rash, such as eczema or psoriasis. ? A fungal rash on the feet or in skinfolds. ? Blistering rashes, such as shingles or chickenpox. ? Slow movement of blood in the veins (venous stasis). ? Fluid buildup below the skin (edema). ??? Have open wounds on the skin, such as cuts, puncture wounds, boudreaux, bites, scrapes, tattoos, piercings, or wounds from surgery. ??? Have had radiation therapy. ??? Use IV drugs. What are the signs or symptoms? Symptoms of this condition include: ??? Skin that looks red, purple, or slightly darker than your usual skin color. ??? Streaks or spots on the skin. ??? Swollen area of the skin. ??? Tenderness or pain when an area of the skin is touched. ??? Warm skin. ??? Fever or chills. ??? Blisters. ??? Tiredness (fatigue). How is this diagnosed? This condition is diagnosed based on a medical history and physical exam. You may also have tests, including: ??? Blood tests. ??? Imaging tests. ??? Tests on a sample of fluid taken from the wound (wound culture). How is this treated? Treatment for this condition may include: ??? Medicines. These may include antibiotics or medicines to treat allergies (antihistamines). ??? Rest. ??? Applying cold or warm wet cloths (compresses) to the skin. ??? If the condition is severe, you may need to stay in the hospital and get antibiotics through an IV. The infection usually starts to get better within 1?2 days of treatment. Follow these instructions at home: Medicines ??? Take wnhj-zht-nyxbsqx and prescription medicines only as told by your health care provider. ??? If you were prescribed antibiotics, take them as told by your provider. Do not stop using the antibiotic even if you start to feel better. General instructions ??? Drink enough fluid to keep your pee (urine) pale yellow. ??? Do not touch or rub the infected area. ??? Raise (elevate) the infected area above the level of your heart while you are sitting or lying down. ??? Return to your normal activities as told by your provider. Ask your provider what activities are safe for you. ??? Apply warm or cold compresses to the affected area as told by your provider. ??? Keep all follow-up visits. Your provider will need to make sure that a more serious infection is not developing. Contact a health care provider if: ??? You have a fever. ??? Your symptoms do not improve within 1?2 days of starting treatment or you develop new symptoms. ??? Your bone or joint underneath the infected area becomes painful after the skin has healed. ??? Your infection returns in the same area or another area. Signs of this may include: ? You notice a swollen bump in the infected area. ? Your red area gets larger, turns dark in color, or becomes more painful. ? Drainage increases. ? Pus or a bad smell develops in your infected area. ? You have more pain. ??? You feel ill and have muscle aches and weakness. ??? You develop vomiting or diarrhea that will not go away. Get help right away if: ??? You notice red streaks coming from the infected area. ??? You notice the skin turns purple or black and falls off. This symptom may be an emergency. Get help right away. Call 911. ??? Do not wait to see if the symptom will go away. ??? Do not drive yourself to the hospital. This information is not intended to replace advice given to you by your health care provider. Make sure you discuss any questions you have with your health care provider. Document Revised: 09/20/2022 Document Reviewed: 09/20/2022 Auto I.D. Patient Education ? 2023 [employer]. Obstetrics and Gynecology Edema Edema is an abnormal buildup of fluids in the body tissues and under the skin. Swelling of the legs, feet, and ankles is a common symptom that becomes more likely as you get older. Swelling is also common in looser tissues, such as around the eyes. Pressing on the area may giancarlo (more content not included)... [facility] Evaluation + Plan note 07-26-2024 Note Date & Type Note Facility 07-26-2024 Evaluation + Plan note Extrac mauro from: Title:ED Note Author:Anne LANE, Jeffrey Rodriguez te:07/26/24 Bilateral leg edema (R60.0: Localized edema) Cellulitis of right lower leg (L03.115: Cellulitis of right lower limb) Orders: sulfamethoxazole-trimethoprim, 1 tab(s), Oral, BID for 7 day(s), 14 tab(s), Refill(s) 0, [id number], 162, cm, 07/26/24 22:50:00 EDT, Height/Length Dosing, 124.7, kg, 07/26/24 22:50:00 EDT, Weight Dosing sulfamethoxazole-trimethoprim, 1 tab(s), Tab, Oral, Once, Stop date 07/26/24 23:28:00 EDT, STAT, Start date 07/26/24 23:28:00 EDT [facility] Clinical Note 10-15-2020 Note Date & Type [...] right greater than left. Electronically authenticated by: AJITH DE LA GARZA Date: 2020-10-15 00:07 [facility] course Narrative Note Date & Type Note Facility Hospital course Narrative No data available for this section [facility] Progress note Note Date & Type Note Facility Progress note No data available for this section [facility] Summary Purpose Family History No Family History Records FoundNo Family History Records FoundNo Family History Records FoundNo Family History Records Found No data available for this section No data available for this section No Family History Records FoundNo Family History Records FoundNo Family History Records FoundNo Family History Records FoundNo Family History Records FoundNo Family History Records FoundNo Family History Records FoundNo Family History Records Found Advance Directives No Advanced Directives Records FoundDocuments on File Type Date Recorded Patient Scheduling Clerk Expl anation ACP-Advance Directive ACP-Power of Upsetter Hospital Course Note MR#: [id number] [facility] Pt. Name: Morris Duran Admitted: 12/30/2018 Discharged: [...] use, chronic low back pain, admitted to [facility], who was transferred from [facility] secondary to low back pain for last 2 weeks. She had abdominal and pelvis CT done, it was unremarkable except left ovarian cyst. Psychiatry was consulted secondary to hallucinations. The patient was using IV methamphetamine due t (more content not included)... Additional Source Comments INFORMATION SOURCE (unrecogn ized section and content) DATE CREATED AUTHOR 06/27/2018 [facility] DATE CREATED AUTHOR AUTHOR'S ORGANIZ ATION 02/16/2019 [facility] DATE CREATED AUTHOR AUTHOR'S ORGANIZ ATION 09/04/2020 [facility] DATE CREATED AUTHOR AUTHOR'S ORGANIZ ATION [facility]/24/2021 [facility] DATE CREATED AUTHOR AUTHOR'S ORGANIZ ATION 07/31/2024 [facility] DATE CREATED AUTHOR AUTHOR'S ORGANIZ ATION 08/01/2024 [facility] DATE CREATED AUTHOR AUTHOR'S ORGANIZ ATION 08/16/2024 [facility] FOR RECORDS PERTAINING TO PATIENTS [...] BE BASED ON THE PRIMARY CLINICAL RECORDS. [facility] [employer] [facility]. provides no warranty or guarantee of the accuracy or completeness of information in this document.
--- OUTSIDE RECORDS SUMMARY | 2024-09-12 21:35 | XMS_ITS | Clinical Summary ---
Author Organization [facility] Address [address], [address] [place] [address] Care Team Providers Care Oracle Fusion Middleware Developer Name Role Phone Unavailable Primary Care Provider Unavailabl e Allergies Active Allergy Reactions Criticality Noted Date Comments Cefaclor 08/03/2017 Duloxetine Hcl 08/03/2017 Medications ondansetron (ZOFRAN) 4 MG tablet Take 1 tablet by mouth every 8 hours as needed for Nausea 20 tablet 9 Active acetaminophen (TYLENOL) 500 MG tablet Take 2 tablets by mouth every 8 hours as needed for Pain 30 tablet 9 Active ibuprofen (ADVIL;MOTRIN) 800 MG tablet Take 1 tablet by mouth every 8 hours as needed for Pain 30 tablet 9 Active Lidocaine 0.5 % GEL Apply 1 Film topically 2 times daily as needed (For painful vulvar rash. Use smallest amount possible to prevent systemic toxicity) 1 Tube 9 Active buPROPion (WELLBUTRIN XL) 300 MG extended release tablet Take 300 mg by mouth Active ibuprofen (ADVIL;MOTRIN) 800 MG tablet Take 1 tablet by mouth every 8 hours as needed for Pain 30 tablet 9 Active ondansetron (ZOFRAN ODT) 4 MG disintegrating tablet Take 1 tablet by mouth every 8 hours as needed for Nausea 10 tablet 9 Active Family History Medical History Relation Name Comments Diabetes Father High Blood Pressure Father High Cholesterol Father Atrial Fibrillation Mother High Blood Pressure Mother High Cholesterol Mother Relation Name Status Comments Father Mother Social History Tobacco Use Types Packs/Day Years Used Date Smoking Tobacco: Every Day Cigarettes 0.3 15 Smokeless Tobacco: Never Alcohol Use Standard Drinks/Week Comments No 0 (1 standard drink = 0.6 oz pur e alcohol) Comments No Sex and Gender Information Value Date Recorded Sex Assigned at Not on file Legal Sex Female 8:59 AM EDT Gender Identity Not on file Sexual Orientation Not on file Last Filed Vital Signs Vital Sign Reading Time Taken Comments Blood Pressure 135/93 06/10/2018 6:24 PM EDT Pulse 94 06/10/2018 6:24 PM EDT Temperature 36.1 C (97 F) 06/10/2018 6:24 PM EDT Respiratory Rate 18 06/10/2018 6:24 PM EDT Oxygen Saturation 95% 06/10/2018 6:24 PM EDT Inhaled Oxygen Concentration - - Weight 117.9 kg (260 lb) 03/21/2018 9:08 PM EST Height 165.1 cm (5' 5 ) 03/21/2018 9:08 PM EST Body Mass Index 43.27 03/21/2018 9:08 PM EST Plan of Treatment Not on file Insurance
--- OUTSIDE RECORDS SUMMARY | 2024-09-12 21:35 | XMS_ITS | Clinical Summary ---
Author Organization [facility] Address [address] [place] [address] Care Team Providers Care Bioinformatics Computer Scientist Name Role Phone Raphael Hitchcock MD Unavailable Social History Tobacco Use Types Packs/Day Years Used Date Smoking Tobacco: Never Assessed Comments Unknown Sex and Gender Information Value Date Recorded Sex Assigned at Not on file Legal Sex Female 6:41 PM EDT Gender Identity Not on file Sexual Orientation Not on file Last Filed Vital Signs Vital Sign Reading Time Taken Comments Blood Pressure 110/70 03/08/2017 12:00 PM EST Pulse - - Temperature - - Respiratory Rate - - Oxygen Saturation - - Inhaled Oxygen Concentration - - Weight 104 kg (230 lb) 03/08/2017 12:00 PM EST Height 167.6 cm (5' 6 ) 03/08/2017 12:00 PM EST Body Mass Index 37.12 03/08/2017 12:00 PM EST Plan of Treatment Health Maintenance Due Date Last Done Comments Pap Smear 2005 Cervical Cancer Screening 2014 HPV/Cotest 2014 Mammogram 2024 Influenza Vaccine (#1) 2024 12/12/2016 Care Teams Bioinformatics Computer Scientist Relationship Specialty Start Date End Date Raphael Hitchcock MD [address] [facility] [address] [place] [address] PCP - [facility] 05/07/22
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
[2024-09-12 23:06] VITALS: BP 156/101; O2SAT 100
[2024-09-12 23:17] LABS: Hematocrit 45.8 % (36.0-48.0); Hemoglobin 15.7 g/dL (12.0-16.0); Immature Granulocytes Abs Auto 0.02 10^3/uL (0.00-0.03); Immature Granulocytes Pct Auto 0.2 % (0.0-0.5); Lymphocytes Absolute Auto 3.9 10^3/uL (1.2-3.8); Mean Corpuscular HGB Conc 34.3 g/dL (29.9-35.2); Mean Corpuscular Hemoglobin 31.0 pg (26.7-34.0); Mean Corpuscular Volume 90.5 fL (81.0-99.0); Platelet Count 374 10^3/uL (150-450); Red Blood Count 5.06 10^6/uL (4.20-5.40); White Blood Count 11.9 10^3/uL (4.0-11.0)
[2024-09-12 23:26] LABS: Anion Gap 9.6; Blood Urea Nitrogen 12.0 mg/dL (7.0-18.0); Calcium 9.5 mg/dL (8.5-10.1); Carbon Dioxide 33.3 mmol/L (21.0-32.0); Chloride 104 mmol/L (98-107); Estimated GFR (African America >60 (>=60 mL/min/1.73m^2); Estimated GFR (Non-African Ame >60 (>=60 mL/min/1.73m^2); Glucose 78 mg/dL (74-106); Magnesium 2.2 mg/dL (1.8-2.4); Potassium 3.9 mmol/L (3.5-5.1); Sodium 143 mmol/L (136-145)
[2024-09-12] MEDS: diphenhydrAMINE HCL 25 MG in 0.9 % SODIUM CHLORIDE 100 ML 301.5 MG IV (23:36)
[2024-09-12] MEDS: KETOROLAC TROMETHAMINE 30 MG/ML VIAL IVP (23:37)
[2024-09-13] VITALS: O2SAT 100
[2024-09-13 00:27] VITALS: O2SAT 100
[2024-09-13 00:28] VITALS: BP 140/100
[2024-09-13] MEDS: DIAZEPAM 5 MG TABLET PO (00:31)
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
== END 2024-09-13 00:36 | disposition home or self-care (01) ==
PROVIDERS: Emergency Provider Student in an Organized Health Care Education/Training Program
DX: S06.0X0A Concussion without loss of consciousness, initial encounter (principal); R51.9 Headache, unspecified; V49.50XA Passenger injured in collision with unspecified motor vehicles in traffic accident, initial encounter; R11.0 Nausea; M54.2 Cervicalgia; M54.50 Low back pain, unspecified
CPT/HCPCS: 36415; 70450; 70496; 70498; 72128; 72131; 80048; 83735; 84703; 85025; 96374; 96375; 99284; J1200; J1885; J2405; Q9967

== ENCOUNTER 2024-09-26 14:55 | Outpatient (OUT) | payer OTHER, BC, SELFPAY ==
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
--- OUTSIDE RECORDS SUMMARY | 2024-09-26 14:58 | XMS_ITS | Clinical Summary ---
Author Organization [employer] Address [id number] [address] [place] [address] Care Team Providers Care In Store Marketing Associate Name Role Phone No Pcp, No Pcp Primary Care Provider Unavailabl e Allergies Active Allergy Reactions Criticality Noted Date Comments Cefaclor 01/15/2018 Budesonide-Formoterol 01/15/2018 Medications * This document contains information received from the source organization and may not represent a complete record from that organization. hydrOXYzine (VISTARIL) 25 mg capsule Take 25 mg by mouth 2 (two) times a day as needed for anxiety. Active Active Problems Problem Noted Date Diagnosed Date Depression with suicidal ideation 08/07/2018 Family History Relation Name Status Comments Father Alive Mother Alive Social History Tobacco Use Types Packs/Day Years Used Date Smoking Tobacco: Every Day Cigarettes Smokeless Tobacco: Never Alcohol Use Standard Drinks/Week Comments Not Currently 0 (1 standard drink = 0.6 oz pur e alcohol) AUDIT-C Answer Date Recorded Frequency of Alcohol Consumption Never 06/14/2018 Average Number of Drinks Not on file 019 Frequency of Binge Drinking Not on file 10/2018 Childcare Answer Date Recorded Childcare Unknown 07/18/2018 Employment Answer Date Recorded Employment Unknown 07/18/2018 Purpose - Life Answer Date Recorded Purpose and direction in life Unknown Comments No Sex and Gender Information Value Date Recorded Sex Assigned at Not on file Legal Sex Female 12:05 PM EDT Gender Identity Not on file Sexual Orientation Not on file Last Filed Vital Signs Vital Sign Reading Time Taken Comments Blood Pressure 128/80 08/12/2018 7:49 AM EDT Pulse 95 08/12/2018 7:49 AM EDT Temperature 36.1 C (97 F) 08/12/2018 7:49 AM EDT Respiratory Rate 13 08/12/2018 7:49 AM EDT Oxygen Saturation 100% 08/07/2018 3:20 PM EDT Inhaled Oxygen Concentration - - Weight 118.4 kg (261 lb) 08/07/2018 6:35 PM EDT Height 165.1 cm (5' 5 ) 08/07/2018 6:35 PM EDT Body Mass Index 43.43 08/07/2018 6:35 PM EDT Plan of Treatment Health Maintenance Due Date Last Done Comments Depression Screening 1996 Tobacco Screening 1996 Adult BMI Screening 2002 DTaP,Tdap and Td Vaccines (1 - Tdap) 06/22/2003 Pap Smear 2005 Influenza Vaccine 10/07/2024 Medical Devices Not on file Insurance [employer] Advance Directives * Full Code (Latest Code Status on File) Date Activated Date Inactivated Comments 08/08/2018 4:27 PM 08/12/2018 4:35 PM Care Teams In Store Marketing Associate Relationship Specialty Start Date End Date No Pcp, [place] [address] PCP - General Family Medicine 01/15/18
--- OUTSIDE RECORDS SUMMARY | 2024-09-26 14:58 | XMS_ITS | Patient Health Record ---
Author Organization [facility] [place] Address [address] [place] [address] Care Team Providers Care Railcar Switcher Name Role Phone Arthur Constantino Primary Care Provider [phone] Allergies Allergen (clinical drug ingredient) Drug/Non Drug Allergy documented on EMR Reaction Allergy Type Onset Date Status duloxetine Cymbalta black out Drug Allergy Active cefaclor Cefaclor childhood- legs numb Drug Allergy Active Reason For Referral No Information Medications Medication SIG (Take, Route, Fr equency, [...] blood pressure reading without diagnosis of hypertension (383573259) Borderline hypertension (R03.0) Active confirmed Problem Arthralgia of the pelvic region and thigh (083291821) Right hip pain (M25.551) Active confirmed Problem Concussion injury of brain (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) Concussion (S06.0X9A) Active confirmed Vital Signs Blood pressure diastolic 92 mm Hg 09/26/2024 Height 65 in 09/26/2024 Blood pressure systolic 136 mm Hg 09/26/2024 Weight 249.2 lbs 09/26/2024 BMI 41.46 kg/m2 09/26/2024 Encounters Encounter Location Date Provider Diagnosis [facility] [address] [place] [address] 09/26/2024 Arthur Constantino Borderline hypertens ion R03.0 ; Concussion S06.0X9A [...] for pain as needed Plan Of Treatment Pending Test Test Name Order Date XR HIP RT 2 3V W PELVIS 09/26/2024 Insurance Providers Payer Name Payer Address Payer Phone Subscriber Number Group Number Insured Name Patient Relationship to Insured Coverage Start Date Coverage End Date RASHMI BREWER [address] [place] [address] [id number] Katie Duran Self - patient is the insured Medical (General) History Surgical History Surgery Date(Month/Year) [place] Teeth Extraction TONSILLECTOMY,OVER 12 YRS
--- OUTSIDE RECORDS SUMMARY | 2024-09-26 14:59 | XMS_ITS | Clinical Summary ---
Author Organization [facility] Address [address], [address] [place] [address] Care Team Providers Care Welfare Eligibility Worker Name Role Phone Unavailable Primary Care Provider [...]
--- OUTSIDE RECORDS SUMMARY | 2024-09-26 14:59 | XMS_ITS | Clinical Summary ---
Author Organization [facility] Address [address] [place] [address] Care Team Providers Care Mental Health Assistant Name Role Phone Raphael Hitchcock MD Unavailable [...] Influenza Vaccine (#1) 2024 12/12/2016 Care Teams Mental Health Assistant Relationship Specialty Start Date End Date Raphael Hitchcock MD [address] [facility] [address] [place] [address] PCP - [facility] 05/07/22
--- NOTE | 2024-09-26 15:02 | XR_ITS ---
[facility] [place] [id number] Patient Name: MORRIS TAN MRN: [id number] date: 1985 Sex: F Assigned Patient Location: [facility] Current Patient Location: [facility] Accession/Order Number: [id number] Exam Date: 09/26/2024 15:10 Report Date: 09/26/2024 16:13 At the request of: MARILYN LIZ MD Procedure: XR hip RT 2V w/ pelvis 2 views right hip a single view pelvis HISTORY: Fell 2 weeks ago. Right hip pain. Difficulty walking. Extensive right hip [id number]-qa-[id number] contact degenerative changes marginal spurring. No articular collapse. No AVN. No acute displaced fracture. XR/XR hip RT 2V w/ pelvis IMPRESSION: Extensive iouo-nx-dilz contact right hip degeneration. No acute displaced fracture. Impression dictated by: Ethan Lazcano M.D. 09/26/2024 4:13 PM Dictation Location[email or web address] Electronically authenticated by: [id number] Date: 09/26/2024 16:13
--- OUTSIDE RECORDS SUMMARY | 2024-09-26 16:05 | XMS_ITS | CCD ---
Author Organization [facility] Inform ion Partnership [facility] Care Team Providers Care Ship'S Electronic Warfare Officer Name Role Phone PAVLOCK, MAX L Primary [...] (antibiotic) (1 source) Cefaclor Drug Allergy 08-03-2017 [facility] DULoxetine (1 source) DULoxetine Drug Allergy 08-03-2017 [facility] (2 sources) Acetaminophen / HYDROcodone Drug Allergy 11-10-2012 [facility] (3 sources) Cefaclor; Translations: [Ceclor] Drug Allergy 11-10-2012 [facility] (3 sources) DULoxetine; Translations: [Cymbalta] Drug Allergy 11-10-2012 [facility] Repository (5 sources) Cefaclor; Translations: [cefaclor] Drug Allergy 08-03-2017 numb[place], [place] (3 sources) DULoxetine Drug Allergy 08-03-2017 [place] (2 sources) DULoxetine; Translations: [duloxetine] Drug Allergy [facility] Medications Current Medications Medication Drug [...] day(s), # 20 tab(s), Refills(s) 0, Pharmacy: [facility]/pharmacy #[id number], 165, cm, 07/29/24 19:32:00 EDT, Height/Length [...] for 7 day(s), 14 tab(s), Refill(s) 0, [facility]/pharmacy #[id number], 162, cm, 07/26/24 22:50:00 EDT, Height/Length Dosing, [...] Start: 10-17-2018 take 5 capsules by m margaritoirene once daily Effexor XR 150 mg Cap-ER [...] 10-17-2018 Chronic Other aftercare (4 sources) Other residential (current) drug therapy; 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] Onset: 08-13-2021 Episodic Residual [...] DO Transcribed by: SESAR Technologist: LES Lindquist [facility] BMPOrdered By: SYSTEM SYSTEM on 07-29-2024 Anion gap [Moles/Vol] 6 mmol/L Normal 6-16 Rem isol Chem Comment on above: Performed By: #### 2 [id number] #### [facility] [address] [place] [address] Calcium [Mass/Vol] 8.9 mg/dL Normal 8.9-11.1 Remiso l Chem Comment on above: Performed By: #### 2 [id number] #### [facility] [address] [place] [address] Chloride [Moles/Vol] 104 mmol/L Normal 101-111 [facility] Chem Comment on above: Performed By: #### 2 [id number] #### [facility] [address] [place] [address] CO2 [Moles/Vol] 31 mmol/L Normal 21-31 Remisol C hem Comment on above: Performed By: #### 2 [id number] #### [facility] [address] [place] [address] Creatinine [Mass/Vol] 0.7 mg/dL Normal 0.5-1.3 Rem isol Chem Comment on above: Performed By: #### 2 [id number] #### [facility] [address] [place] [address] Glucose [Mass/Vol] 108 mg/dL Normal 55-199 Remiso l Chem Comment on above: Performed By: #### 2 [id number] #### [facility] [address] [place] [address] Potassium [Moles/Vol] 4.3 mmol/L Normal 3.5-5.3 Rem isol Chem Comment on above: Performed By: #### 2 [id number] #### [facility] [address] [place] [address] Sodium [Moles/Vol] 137 mmol/L Normal 135-145 Remiso l Chem Comment on above: Performed By: #### 2 [id number] #### [facility] [address] [place] [address] Urea nitrogen [Mass/Vol] 12 mg/dL Normal 5-21 Remisol Chem Comment on above: Performed By: #### 2 [id number] #### [facility] [address] [place] [address] BMPon 07-29-2024 BUN/Creat Ratio 17 No Units Normal 10-20 [facility] Comment on above: Performed By: #### 2 [id number] #### [facility] [address] [place] [address] BNPOrdered By: Javan up 07-29-2024 Natriuretic peptide B (Bld) [Mass/Vol] 53 pg/mL Normal 5-80 [facility] HemeManSS Comment on above: Performed By: #### 1 [id number] #### [facility] [address] [place] [address] CBC w/ Auto Diffon 5 Basophil Absolute 0.1 E9/L Normal 0.0-0.2 [facility] Comment on above: Performed By: #### 2 [id number] #### [facility] [address] [place] [address] Eos Absolute 0.6 E9/L High 0.0-0.5 [facility] Comment on above: Performed By: #### 2 [id number] #### [facility] [address] [place] [address] Lymph Absolute 2.4 E9/L Normal 1.0-4.0 [facility] Comment on above: Performed By: #### 2 [id number] #### [facility] [address] [place] [address] Cassia Absolute 0.9 E9/L Normal 0.2-1.0 [facility] Comment on above: Performed By: #### 2 [id number] #### [facility] [address] [place] [address] Neutro Absolute 4.5 E9/L Normal 2.0-7.5 [facility] Comment on above: Performed By: #### 2 [id number] #### [facility] [address] [place] [address] Neutro Auto 53.7 % Normal 36.0-75.0 [facility] Comment on above: Performed By: #### 2 [id number] #### [facility] [address] [place] [address] Platelet 324.0 E9/L Normal 150.0-500.0 [facility] Comment on above: Performed By: #### 2 [id number] #### [facility] [address] [place] [address] RBC 4.6 E12/L Normal 4.3-5.9 [facility] Comment on above: Performed By: #### 2 [id number] #### [facility] [address] [place] [address] WBC 8.5 E9/L Normal 4.0-11.0 [facility] Comment on above: Performed By: #### 2 [id number] #### [facility] [address] [place] [address] CBC w/ Auto DiffOrdered By: SYSTEM SYSTEM on 07-29-2024 Basophils/100 WBC (Bld) 0.9 % Normal 0.0-2.0 [facility] Heme Comment on above: Performed By: #### 2 [id number] #### [facility] [address] [place] [address] Eosinophils/100 WBC (Bld) 6.6 % Normal 0.0-8.0 [facility] Comment on above: Performed By: #### 2 824511 #### [facility] [address] [place] [address] Erythrocyte distribution width (RBC) [Ratio] 13.4 % Normal 10.9-14.2 [facility] Comment on above: Performed By: #### 2 [id number] #### [facility] [address] [place] [address] Hematocrit (Bld) [Volume fraction] 41.6 % Normal 34.0-46.0 [facility] Comment on above: Performed By: #### 2 556046 #### [facility] [address] [place] [address] Hemoglobin (Bld) [Mass/Vol] 14.4 g/dL Normal 12.0-16.0 [facility] Comment on above: Performed By: #### 2 [id number] #### [facility] [address] [place] [address] Lymphocytes/100 WBC (Bld) 28.6 % Normal 14.0-50.0 [facility] Comment on above: Performed By: #### 2 [id number] #### [facility] [address] [place] [address] MCH (RBC) [Entitic mass] 31.5 pg Normal 27.0-34.0 [facility] Comment on above: Performed By: #### 2 135119 #### [facility] [address] [place] [address] MCHC (RBC) [Mass/Vol] 34.7 g/dL Normal 31.4-36.0 Rem isol Heme Comment on above: Performed By: #### 2 189525 #### [facility] [address] [place] [address] MCV (RBC) [Entitic vol] 90.7 fL Normal 80.0-100.0 [facility] Comment on above: Performed By: #### 2 525130 #### [facility] [address] [place] [address] Monocytes/100 WBC (Bld) 10.2 % Normal 4.0-14.0 [facility] Comment on above: Performed By: #### 2 [id number] #### [facility] [address] [place] [address] Platelet mean volume (Bld) [Entitic vol] 7.2 fL Normal 6.4-10.8 [facility] Comment on above: Performed By: #### 2 [id number] #### [facility] [address] [place] [address] CHEMISTRYOrdered By: SYSTEM SYSTEM on 07-29-2024 CRP [Mass/Vol] 0.5 mg/dL Normal <=1.9mg/dL Remisol Ch em GFR/1.73 sq M.predicted MDRD (S/P/Bld) [Vol rate/Area] 112 mL/min/1.73 m2 Normal >=59mL/min/1.7 3 m2 Remisol Chem Urea nitrogen/Creatinine [Mass ratio] 17 mg/mg Normal 10 - 20 Remisol Chem CRPon 07-29-2024 CRP 0.5 mg/dL Normal <=1.9 [facility] Comment on above: Performed By: #### 2 [id number] #### [facility] [address] [place] [address] ED Clinical Summaryon 2024 ED Clinical Summary ED Clinical Summary [address] [address] ED Clinical Summary Person Information Name: MORRIS DURANT[place] Age: 39 Years : 1985 Sex: Female Language: Guamanian PCP: NONE, XXXX Marital Status: Single Phone: [phone] Visit Id: Visit Reason: Lower leg pain-swelling; [...] 07/29/2024 21:43:40 07/29/2024 21:43:40 07/29/2024 21:43:40 ADDRESS: [address] [place] [phone] PHYS DOC NOTES: MEDICAL INFORMATION: Prescriptions Given: New Medications [id number], [address] [place], [place] [id number], [phone] doxycycline (doxycycline hyclate 100 mg Tab) 1 [...] EDUCATION INFORMATION: Instructions: Peripheral Edema; Cellulitis, Adult, Zzhc-gt-Oear Follow up: With: Address: When: Irma Morales [address] [place] [address] Business (1) In 3 days 08/01/2024 [...] DIAGNOSIS: Cellulitis of leg; Peripheral edema Normal [facility] ED Note-Physicianon 07-30-19 ED Note-Physician ED [...] Complexity of Problems Differential Diagnosis: [] [facility] Data External documents reviewed: [] My [...] day(s), # 20 tab(s), Refills(s) 0, Pharmacy: [facility]/pharmacy #[id number], 165, cm, 07/29/24 19:32:00 EDT, Height/Length [...] 3 days 08/01/[address] [place] [place] [address]- Business (1) Additional Instructions: Stop the Bactrim and stop applying Neosporin to the area. Start the doxycycline tomorrow twice a day and to complete the course. If symptoms worsen please return to the ED as I believe you would need IV antibiotics at that point. XXXX NONE In 3 days [place] Additional Instructions: Patient Education Peripheral Edema Cellulitis, Adult, Yjll-mx-Bcvz Problem List/Past Medical History Ongoing ADHD Anxiety Bipolar illness Depression Insomnia Psychiatric disorder Smoker Historical No qualifying data Procedure/Surgical History Tonsillectomy and adenoidectomy; age 11 or over. Medications Inpatient No active inpatient medications (more content not included)... Normal [facility] Comment on above: Result Comment: Elec tronically Signed By: Silvestre Barton DO\.br\Date and Time Signed: 07/29/24 21:31 EDT ED Patient Summaryon 025 ED Patient Summary ED Patient Summary [address] [address] Patient Discharge Instructions Person Information Name: MORRIS DURAN Age: 39 Years Arrival Date: 07/29/2024 19:20:01 Discharge Diagnosis: Cellulitis of leg; Peripheral edema Primary Care Physician: NONE, XXXX Provider Information Primary Provider: Silvestre Barton DO Advanced Java Developer With Security Clearance:None The exam and treatment you received in the Emergency Department were for an urgent problem and are not intended as complete care. It is important that you follow up with a doctor, nurse practitioner, or physician???s clerical administrative assistant for ongoing care. If your symptoms [...] Address: When: Irma [place] [address] [place] [address] Business (1) In 3 days 08/01/2024 Comments: Stop the Bactrim and stop applying Neosporin to the area. Start the doxycycline tomorrow twice a day and to complete the course. If symptoms worsen please return to the ED as I believe you would need IV antibiotics at that point. With: Address: When: XXXX [facility] [place] In 3 days In the event that this physician does not participate in your insurance network, please consult with your insurance company to find a nearby participating provider. Patient Education Materials: Peripheral Edema; Cellulitis, Adult, Godq-yx-Bwug A MESSAGE TO ALL PATIENTS REGARDING OPIOIDS PRESCRIPTION OPIOIDS: WHAT YOU NEED TO KNOW Prescription opioids can be used to help relieve cvhbxkqc-gq-lnpukb pain and are often prescribed following a [...] program, or (more content not included)... Normal [facility] Extra Blueon 07-29-2024 Tube Collected Plasma Yes Invalid Interpretation Code [facility] Comment on above: Performed By: #### 1 [id number] #### [facility] [address] [id number] HEMATOLOGYOrdered By: SYSTEM SYSTEM on 07-29-2024 Basophils/Leukocytes [...] 07-29-2024 eGFR 112 mL/min/1.73 m2 Normal >=59 [facility] Comment on above: Performed By: #### 1 [id number] #### [facility] [address] [id number] ED Clinical Summaryon 2024 ED Clinical Summary ED Clinical Summary [address] [address] ED Clinical Summary Person Information Name: MORRIS DURAN Mari/[facility] Age: 39 Years : 1985 Sex: Female Language: Guamanian PCP: NONE, XXXX Marital Status: Single Phone: [phone] Visit Id: Visit Reason: Leg pain-swelling; Cellulitis [...] 00:17:59 07/27/2024 00:17:59 07/27/2024 00:17:59 ADDRESS: [address] [facility] [phone] PHYS DOC NOTES: MEDICAL INFORMATION: Prescriptions Given: New Medications [id number], [address] [place], [place] [id number], [phone] sulfamethoxazole-tri methoprim (Bactrim D.S. 800 mg-160 mg [...] With: Address: When: Ajith Field [address] [phone] Business (1) In 3 days 07/29/2024 DIAGNOSIS: Bilateral leg edema; Cellulitis of right lower leg Normal [facility] ED Note-Physicianon 07-28-19 ED Note-Physician ED [...] In 3 days 07/29/2024 EDT [address] [phone] Business (1) Additional Instructions: Patient Education Edema Cellulitis, Adult Attestation Patient seen and evaluated by the physician clerical administrative assistant. Attending physician was present in the emergency department and supervised care. This visit was performed by both the physician and an APC. I performed all aspects of the MDM as documented. This report was transcribed using voice recognition software. Every effort was made to ensure accuracy, however, inadvertently computerized expense clerk mistakes may be present. Appropriate healthcare PPE [...] and ad (more content not included)... Normal [facility] Comment on above: Result Comment: Elec tronically Signed By: Jeffrey Rodríguez PA-C\.br\Date and Time Signed: 07/27/24 00:21 EDT\.br\Electronically Co-Signed By: Nirmala Moser M.D.\.br\Date and Time Co-Signed: 07/27/24 02:10 EDT ED Patient Summaryon 025 ED Patient Summary ED Patient Summary [address] [address] Patient Discharge Instructions Person Information Name: MORRIS DURAN Age: 39 Years Arrival Date: 07/26/2024 22:35:08 Discharge Diagnosis: Bilateral leg edema; Cellulitis of right lower leg Primary Care Physician: NONE, XXXX Provider Information Primary Provider: Nirmala Moser M.D. Advanced Java Developer With Security Clearance:Jeffrey Rodríguez PA-C The exam and treatment you received in the Emergency Department were for an urgent problem and are not intended as complete care. It is important that you follow up with a doctor, nurse practitioner, or physician???s clerical administrative assistant for ongoing care. If your symptoms [...] Follow-up Instructions: With: Address: When: Ajith Link [address] [place] [id number] Business (1) In 3 days 07/29/2024 In the event that this physician does not participate in your insurance network, please consult with your insurance company to find a nearby participating provider. Patient Education Materials: Edema; Cellulitis, Adult A MESSAGE TO ALL PATIENTS REGARDING OPIOIDS PRESCRIPTION OPIOIDS: WHAT YOU NEED TO KNOW Prescription opioids can be used to help relieve qzqgzhxb-eg-ucsjzg pain and are often prescribed following a [...] your heal (more content not included)... Normal [facility] CBC AUTO DIFFon 08-13-2021 BASO # 0.0 103/ul Normal 0.0-0.1 [facility] Comment on above: Performed By: #### C BC #### [facility] [address] [address] [address] Elmer Hopkins Basophils/100 WBC (Bld) 0.5 % Normal 0.2-2.0 [facility] Comment on above: Performed By: #### C BC #### [facility] [address] [address] [address] Elmer Hopkins EO # 0.7 103/ul Normal 0.0-0.7 [facility] Comment on above: Performed By: #### C BC #### [facility] [address] [address] [address] Elmer Hopkins Eosinophils/100 WBC (Bld) 9.4 % Critically high 0.9-7.0 [facility] Comment on above: Performed By: #### C BC #### [facility] [address] [address] [address] Elmer Hopkins Erythrocyte distribution width (RBC) [Ratio] 12.3 % Normal 11.0-15.0 [facility] Comment on above: Performed By: #### C BC #### [facility] [address] [address] [address] Elmer Hopkins Hematocrit (Bld) [Volume fraction] 45.0 % Normal 36.0-48.0 [facility] Comment on above: Performed By: #### C BC #### [facility] [address] [address] [address] Elmer Hopkins Hemoglobin (Bld) [Mass/Vol] 14.8 g/dL Normal 12.0-16.0 [facility] Comment on above: Performed By: #### C BC #### [facility] [address] [place] [address] Dr. Elmer Hopkins IG # 0.03 10e3/ul Normal 0.00-0.03 [facility] Comment on above: Performed By: #### C BC #### [facility] [address] [place] [address] Dr. Elmer Hopkins IG % 0.4 % Normal 0.0-0.5 [facility] Comment on above: Performed By: #### C BC #### [facility] [address] [place] [address] Dr. Elmer Hopkins LYMPH # 3.0 103/ul Normal 1.2-3.8 [facility] Comment on above: Performed By: #### C BC #### [facility] [address] [place] [address] Dr. Elmer Hopkins Lymphocytes/100 WBC (Bld) 37.3 % Normal 20.5-60.0 [facility] Comment on above: Performed By: #### C BC #### [facility] [address] [place] [address] Dr. Elmer Hopkins MANUAL DIFF REQ NO Normal [facility] Comment on above: Performed By: #### C BC #### [facility] [address] [place] [address] Dr. Elmer Hopkins MCH (RBC) [Entitic mass] 31.5 pg Normal 26.7-34.0 [facility] Comment on above: Performed By: #### C BC #### [facility] [address] [place] [address] Dr. Elmer Hopkins MCHC (RBC) [Mass/Vol] 32.9 g/dL Normal 29.9-35.2 [facility] Comment on above: Performed By: #### C BC #### [facility] [address] [place] [address] Dr. Elmer Hopkins MCV (RBC) [Entitic vol] 95.7 fL Normal 81.0-99.0 [facility] Comment on above: Performed By: #### C BC #### [facility] [address] [address] [address] Elmer Hopkins MONO # 0.7 103/ul Normal 0.3-0.8 [facility] Comment on above: Performed By: #### C BC #### [facility] [address] [address] [address] Elmer Hopkins Monocytes/100 WBC (Bld) 9.0 % Normal 1.7-12.0 [facility] Comment on above: Performed By: #### C BC #### [facility] [address] [place] [address] Dr. Elmer Hopkins NEUT # 3.4 103/ul Normal 1.4-6.5 [facility] Comment on above: Performed By: #### C BC #### [facility] [address] [place] [address] Dr. Elmer Hopkins Neutrophils/100 WBC (Bld) 43.4 % Normal 43.0-75.0 [facility] Comment on above: Performed By: #### C BC #### [facility] [address] [place] [address] Dr. Elmer Hopkins Platelet mean volume (Bld) [Entitic vol] 9.4 fL Critically low 9.5-13.5 [facility] Comment on above: Performed By: #### C BC #### [facility] [address] [place] [address] Dr. Elmer Hopkins PLT 329 103/ul Normal 150-450 [facility] Comment on above: Performed By: #### C BC #### [facility] [address] [place] [address] Dr. Elmer Hopkins RBC 4.70 106/ul Normal 4.20-5.40 [facility] Comment on above: Performed By: #### C BC #### [facility] [address] [place] [address] Dr. Elmer Hopkins WBC 7.9 103/ul Normal 4.0-11.0 [facility] Comment on above: Performed By: #### C BC #### [facility] [address] [address] [address] Elmer Hopkins GLYCOHEMOGLOBIN A1Con 2021 ADA RECOMMENDATION SEE BELOW Normal [facility] Comment on above: Result Comment: ADA RECOMMENDED LIMIT 4.0 - 6.0 ADA THERAPEUTIC TARGET < 7.0 ACTION SUGGESTED > 7.0 Performed By: #### A 1C #### [facility] [address] [address] [address] Elmer Hopkins Glucose [Mass/Vol] 105 mg/dL Normal [facility] Comment on above: Performed By: #### A 1C #### [facility] [address] [place] [address] Dr. Elmer Hopkins HbA1c (Bld) [Mass fraction] 5.3 % Normal 4.5-6.2 [facility] Comment on above: Performed By: #### A 1C #### [facility] [address] [place] [address] Dr. Elmer Hopkins LIPID PROFILEon 08-13-2021 CHOL-HDL RATIO NORM SEE BELOW Normal [facility] Comment on above: Result Comment: 3.3 - 4.4 LOW RISK 4.4 - 7.1 AVERAGE RISK 7.1 - 11.0 MODERATE RISK >11.0 HIGH RISK Performed By: #### C MP, TSH, LIPID #### [facility] [address] [place] [address] Dr. Elmer Hopkins Cholesterol [Mass/Vol] 185 mg/dL Normal <=200 [facility] Comment on above: Performed By: #### C MP, TSH, LIPID #### [facility] [address] [place] [address] Dr. Elmer Hopkins Cholesterol in HDL [Mass/Vol] 45 mg/dL Normal 40-60 [facility] Comment on above: Performed By: #### C MP, TSH, LIPID #### [facility] [address] [place] [address] Dr. Elmer Hopkins Cholesterol in LDL [Mass/Vol] 120.4 mg/dL Normal [facility] Comment on above: Performed By: #### C MP, TSH, LIPID #### [facility] [address] [place] [address] Dr. Elmer Hopkins Cholesterol.total/Cho lesterol in HDL [Mass ratio] 4.1 {ratio} Normal [facility] Comment on above: Performed By: #### C MP, TSH, LIPID #### [facility] [address] [address] [address] Elmer Hopkins HDL NORMAL > or = 60 mg/dl - LOW CARDIOVASCULAR RISK <40 mg/dl - HIGH CARDIOVASCULAR RISK Normal [facility] Comment on above: Performed By: #### C MP, TSH, LIPID #### [facility] [address] [address] [address] Elmer Hopkins LDL CALC NORMAL SEE BELOW Normal [facility] Comment on above: Result Comment: <100 mg/dl OPTIMAL 100 - 129 mg/dl NEAR OR ABOVE OPTIMAL 130 - 159 mg/dl BORDERLINE HIGH 160 - 189 mg/dl HIGH >190 mg/dl VERY HIGH Performed By: #### C MP, TSH, LIPID #### [facility] [address] [address] [address] Elmer Hopkins Triglyceride [Mass/Vol] 98 mg/dL Normal <=150 [facility] Comment on above: Performed By: #### C MP, TSH, LIPID #### [facility] [address] [address] [address] Elmer Hopkins VLDL CALC 19.6 mg/dL Normal [facility] Comment on above: Performed By: #### C MP, TSH, LIPID #### [facility] [address] [address] [address] Elmer Hopkins PROF 14(COMP METB)on 022 Albumin [Mass/Vol] 3.3 g/dL Critically low 3.4-5.0 [facility] Comment on above: Performed By: #### C MP, TSH, LIPID #### [facility] [address] [place] [address] Dr. Elmer Hopkins Albumin/Globulin [Mass ratio] 0.9 {ratio} Normal [facility] Comment on above: Performed By: #### C MP, TSH, LIPID #### [facility] [address] [address] [address] Elmer Hopkins ALP [Catalytic activity/Vol] 99 U/L Normal 46-116 [facility] Comment on above: Performed By: #### C MP, TSH, LIPID #### [facility] [address] [address] [address] Elmer Hopkins ALT [Catalytic activity/Vol] 102 U/L Critically high 14-59 [facility] Comment on above: Performed By: #### C MP, TSH, LIPID #### [facility] [address] [address] [address] Elmer Hopkins Anion gap [Moles/Vol] 8.3 mmol/L Normal [facility] Comment on above: Performed By: #### C MP, TSH, LIPID #### [facility] [address] [place] [address] Dr. Elmer Hopkins AST [Catalytic activity/Vol] 49 U/L Critically high 15-37 [facility] Comment on above: Performed By: #### C MP, TSH, LIPID #### [facility] [address] [place] [address] Dr. Elmer Hopkins Bilirubin [Mass/Vol] 0.3 mg/dL Normal 0.2-1.0 [facility] Comment on above: Performed By: #### C MP, TSH, LIPID #### [facility] [address] [place] [address] Dr. Elmer Hopkins Calcium [Mass/Vol] 8.7 mg/dL Normal 8.5-10.1 [facility] Comment on above: Performed By: #### C MP, TSH, LIPID #### [facility] [address] [place] [address] Dr. Elmer Hopkins Chloride [Moles/Vol] 107 mmol/L Normal 98-107 [facility] Comment on above: Performed By: #### C MP, TSH, LIPID #### [facility] [address] [place] [address] Dr. Elmer Hopkins CO2 [Moles/Vol] 30.7 mmol/L Normal 21.0-32.0 [facility] Comment on above: Performed By: #### C MP, TSH, LIPID #### [facility] [address] [address] [address] Elmer Hopkins Creatinine [Mass/Vol] 0.94 mg/dL Normal 0.55-1.02 [facility] Comment on above: Performed By: #### C MP, TSH, LIPID #### [facility] [address] [address] [address] Elmer Hopkins EGFR-AF ESTONIAN >60 Normal >=60 [facility] Comment on above: Performed By: #### C MP, TSH, LIPID #### [facility] [address] [address] [address] Elmer Hopkins EGFR-NON AF ESTONIAN >60 Normal >=60 [facility] Comment on above: Performed By: #### C MP, TSH, LIPID #### [facility] [address] [address] [address] Elmer Hopkins Globulin (S) [Mass/Vol] 3.8 g/dL Normal [facility] Comment on above: Performed By: #### C MP, TSH, LIPID #### [facility] [address] [address] [address] Elmer Hopkins Glucose [Mass/Vol] 125 mg/dL Critically high 74-106 [facility] Comment on above: Performed By: #### C MP, TSH, LIPID #### [facility] [address] [address] [address] Elmer Hopkins Potassium [Moles/Vol] 4.0 mmol/L Normal 3.5-5.1 [facility] Comment on above: Performed By: #### C MP, TSH, LIPID #### [facility] [address] [address] [address] Elmer Hopkins Protein [Mass/Vol] 7.1 g/dL Normal 6.4-8.2 [facility] Comment on above: Performed By: #### C MP, TSH, LIPID #### [facility] [address] [address] [address] Elmer Hopkins Sodium [Moles/Vol] 142 mmol/L Normal 136-145 [facility] Comment on above: Performed By: #### C MP, TSH, LIPID #### [facility] [address] [address] [address] Elmer Hopkins Urea nitrogen [Mass/Vol] 10.0 mg/dL Normal 7.0-18.0 [facility] Comment on above: Performed By: #### C MP, TSH, LIPID #### [facility] [address] [address] [address] Elmer Hopkins Urea nitrogen/Creatinine [Mass ratio] 10.6 mg/mg Normal [facility] Comment on above: Performed By: #### C MP, TSH, LIPID #### [facility] [address] [address] [address] Elmer Hopkins TSHon 08-13-2021 TSH 2.083 uIU/mL Normal 0.358-3.740 [facility] Comment on above: Performed By: #### C MP, TSH, LIPID #### [facility] [address] [address] [address] Elmer Hopkins AMYLASEon 10-15-2020 Amylase [Catalytic activity/Vol] 59 U/L Normal 31-110 [facility] Comment on above: Performed By: #### C MADM, LIPA, KEMAR, CMP ####[facility] Ng[address]oy[address] [place] CARDIAC STEFFI ADMITon 021 CK [Catalytic activity/Vol] 80 U/L Normal 30-135 [facility] Comment on above: Performed By: #### C MADM, LIPA, KEMAR, CMP ####[facility] X[address]fm[address] [place] CK.MB [Mass/Vol] ng/mL Normal <=2.37 [facility] Comment on above: Performed By: #### C MADM, LIPA, KEMAR, CMP ####[facility] Zjmg[address]nyk[address] [place] HSTROP <4.0 Normal 4.0-35.5 [facility] Comment on above: Result Comment: CUT- OFF POINTS HAVE BEEN ESTABLISHED BASED ON THE FOURTH UNIVERSAL DEFINITIONS OF MYOCARDIAL INFARCTION. THE UPPER REFERENCE LIMIT (URL) OF TROPONIN, DEFINED THE 99TH PERCENTILE OF cTnI DISTRIBUTION IN A REFERENCE POPULATION, HAS BEEN CONFIRMED THE DECISION THRESHOLD FOR AK DIAGNOSIS. Performed By: #### C GENESIS SUMMERS AMY, CMP ####[facility] [address] [id number] [place] ALLI 30.0 ng/mL Normal <=61.5 [facility] Comment on above: Performed By: #### C GENESIS SUMMERS AMY, CMP ####[facility] [address] [place] [address] [place] CBC AUTO DIFFon 10-15-2020 BASO # 0.1 103/ul Normal 0.0-0.1 [facility] Comment on above: Performed By: #### C BC ####[facility] [address] [place] [address] [place] Basophils/100 WBC (Bld) 0.4 % Normal 0.2-2.0 [facility] Comment on above: Performed By: #### C BC ####[facility] [address] [place] [address] [place] EO # 0.8 103/ul Critically high 0.0-0.7 [facility] Comment on above: Performed By: #### C BC ####[facility] [address] [place] [address] [place] Eosinophils/100 WBC (Bld) 6.1 % Normal 0.9-7.0 [facility] Comment on above: Performed By: #### C BC ####[facility] [address] [place] [address] [place] Erythrocyte distribution width (RBC) [Ratio] 13.2 % Normal 11.0-15.0 [facility] Comment on above: Performed By: #### C BC ####[facility] [address] [place] [address] [place] Hematocrit (Bld) [Volume fraction] 44.2 % Normal 36.0-48.0 [facility] Comment on above: Performed By: #### C BC ####[facility] [address] [id number] [place] Hemoglobin (Bld) [Mass/Vol] 14.8 g/dL Normal 12.0-16.0 [facility] Comment on above: Performed By: #### C BC ####[facility] [address] [id number] [place] IG # 0.05 10e3/ul Critically high 0.00-0.03 [facility] Comment on above: Performed By: #### C BC ####[facility] Fqbulmglvx[address] [place] IG % 0.4 % Normal 0.0-0.5 [facility] Comment on above: Performed By: #### C BC ####[facility] [address] [place] [address] [place] LYMPH # 3.2 103/ul Normal 1.2-3.8 [facility] Comment on above: Performed By: #### C BC ####[facility] [address] [place] [address] [place] Lymphocytes/100 WBC (Bld) 24.1 % Normal 20.5-60.0 [facility] Comment on above: Performed By: #### C BC ####[facility] [address] [place] [address] [place] MANUAL DIFF REQ NO Normal [facility] Comment on above: Performed By: #### C BC ####[facility] [address] [id number] [place] MCH (RBC) [Entitic mass] 30.9 pg Normal 26.7-34.0 [facility] Comment on above: Performed By: #### C BC ####[facility] [address] [place], [place] [id number] MCHC (RBC) [Mass/Vol] 33.5 g/dL Normal 29.9-35.2 [facility] Comment on above: Performed By: #### C BC ####[facility] [address] [place] [address] [place] MCV (RBC) [Entitic vol] 92.3 fL Normal 81.0-99.0 [facility] Comment on above: Performed By: #### C BC ####[facility] [address] [place] [address] [place] MONO # 1.0 103/ul Critically high 0.3-0.8 [facility] Comment on above: Performed By: #### C BC ####[facility] [address] [place] [address] [place] Monocytes/100 WBC (Bld) 7.3 % Normal 1.7-12.0 [facility] Comment on above: Performed By: #### C BC ####[facility] [address] [place] [address] [place] NEUT # 8.2 103/ul Critically high 1.4-6.5 [facility] Comment on above: Performed By: #### C BC ####[facility] [address] [place] [address] [place] Neutrophils/100 WBC (Bld) 61.7 % Normal 43.0-75.0 [facility] Comment on above: Performed By: #### C BC ####[facility] [address] [place] [address] [place] Platelet mean volume (Bld) [Entitic vol] 9.7 fL Normal 9.5-13.5 [facility] Comment on above: Performed By: #### C BC ####[facility] [address] [place] [address] [place] PLT 414 103/ul Normal 150-450 [facility] Comment on above: Performed By: #### C BC ####[facility] [address] [place], [place] [address] [place] RBC 4.79 106/ul Normal 4.20-5.40 [facility] Comment on above: Performed By: #### C BC ####[facility] [address] [place], [place] [address] [place] WBC 13.3 103/ul Critically high 4.0-11.0 [facility] Comment on above: Performed By: #### C ####[facility] [address] [place], [place] [address] ABD/PELVIS WO CONon 10-15 CT [...] howeve (more content not included)... Normal [facility] LIPASEon 10-15-2020 Lipase [Catalytic activity/Vol] 70.0 U/L Normal 23.0-300.0 [facility] Comment on above: Performed By: #### C GENESIS SUMMERS KEMAR, CMP ####[facility] [address] [place], [place] [address] [place] URon 10-15-2020 , QUAL Negative Normal NEGATIVE [facility] Comment on above: Performed By: #### P REGU #### [facility] [address] [place], [place] [address] [place] PROF 14(COMP METB)on 021 Albumin [Mass/Vol] 4.1 g/dL Normal 3.5-5.0 [facility] Comment on above: Performed By: #### C GENESIS SUMMERS KEMAR, CMP #### [facility] [address] [id number] [place] Albumin/Globulin [Mass ratio] 1.0 {ratio} Normal [facility] Comment on above: Performed By: #### C MELINA, BILLYA, KEMAR, CMP #### [facility] [address] [address] [place] ALP [Catalytic activity/Vol] 93 U/L Normal 38-126 [facility] Comment on above: Performed By: #### C MELINA, GENESIS, KEMAR, CMP #### [facility] [address] [id number] [place] ALT [Catalytic activity/Vol] 90 U/L Critically high 9-52 [facility] Comment on above: Performed By: #### C MELINA, LIPA, KEMAR, CMP #### [facility] [address] [place], [place] [address] [place] Anion gap [Moles/Vol] 13.8 mmol/L Normal [facility] [place] [facility] Comment on above: Performed By: #### C MELINA, LIPA, KEMAR, CMP #### [facility] [address] [id number] [place] AST [Catalytic activity/Vol] 37 U/L Critically high 14-36 [facility] Comment on above: Performed By: #### C BILLY SUMMERSA, KEMAR, CMP #### [facility] [address] [place] [address] [place] Bilirubin [Mass/Vol] 0.3 mg/dL Normal 0.2-1.3 [facility] Comment on above: Performed By: #### C MADM, LIPA, KEMAR, CMP #### [facility] [address] [place] [address] [place] Calcium [Mass/Vol] 9.4 mg/dL Normal 8.4-10.2 [facility] Comment on above: Performed By: #### C MADM, LIPA, KEMAR, CMP #### [facility] [address] [place] [address] [place] Chloride [Moles/Vol] 104 mmol/L Normal 98-107 [facility] Comment on above: Performed By: #### C MADM, LIPA, KEMAR, CMP #### [facility] [address] [place] [address] [place] CO2 [Moles/Vol] 28.0 mmol/L Normal 22.0-30.0 [facility] Comment on above: Performed By: #### C MADCasa, LIPA, KEMAR, CMP #### [facility] [address] [place] [address] [place] Creatinine [Mass/Vol] 0.80 mg/dL Normal 0.52-1.04 [facility] Comment on above: Performed By: #### C MADM, LIPA, KEMAR, CMP #### [facility] [address] [place] [address] [place] EGFR-AF ESTONIAN >60 Normal >=60 [facility] Comment on above: Performed By: #### C MADM, LIPA, KEMAR, CMP #### [facility] [address] [place] [address] [place] EGFR-NON AF ESTONIAN >60 Normal >=60 [facility] Comment on above: Performed By: #### C MADM, LIPA, KEMAR, CMP #### [facility] [address] [place] [address] [place] Globulin (S) [Mass/Vol] 4.0 g/dL Normal [facility] Comment on above: Performed By: #### C GENESIS SUMMERS AMY, CMP #### [facility] [address] [address] [place] Glucose [Mass/Vol] 86 mg/dL Normal 74-106 [facility] Comment on above: Performed By: #### C GENESIS SUMMERS AMY, CMP #### [facility] [address] [address] [place] Potassium [Moles/Vol] 3.8 mmol/L Normal 3.4-5.0 [facility] Comment on above: Performed By: #### C GENESIS SUMMERS AMY, CMP #### [facility] [address] [place] [address] [place] Protein [Mass/Vol] 8.1 g/dL Normal 6.1-8.2 [facility] Comment on above: Performed By: #### C GENESIS SUMMERS AMY, CMP #### [facility] [address] [place] [address] [place] Sodium [Moles/Vol] 142 mmol/L Normal 137-145 [facility] Comment on above: Performed By: #### C GENESIS SUMMERS AMY, CMP #### [facility] [address] [place] [address] [place] Urea nitrogen [Mass/Vol] 11.0 mg/dL Normal 7.0-17.0 [facility] Comment on above: Performed By: #### C GENESIS SUMMERS AMY, CMP #### [facility] [address] [id number] [place] Urea nitrogen/Creatinine [Mass ratio] 13.8 mg/mg Normal [facility] Comment on above: Performed By: #### C GENESIS SUMMERS AMY, CMP #### [facility] [address] [place], [place] [address] [place] ER URINE PROFILEon 1 Bilirubin Ql (U) Negative Normal NEGATIVE [facility] Comment on above: Performed By: #### E RUR #### [facility] [address] [place] [address] [place] Clarity (U) CLEAR Normal CLEAR [facility] Comment on above: Performed By: #### E RUR #### [facility] [address] [place] [address] [place] Color (U) YELLOW Normal YELLOW [facility] Comment on above: Performed By: #### E RUR #### [facility] [address] [place] [address] [place] ERUAHD A micrscopic examination will be performed if indicated. Normal [facility] Comment on above: Performed By: #### E RUR #### [facility] [address] [place] [address] [place] Glucose Ql (U) Negative Normal NEGATIVE [facility] Comment on above: Performed By: #### E RUR #### [facility] [address] [place] [address] [place] Hemoglobin Ql (U) Negative Normal NEGATIVE [facility] Comment on above: Performed By: #### E RUR #### [facility] [address] [place] [address] [place] Ketones Ql (U) TRACE Abnormal NEGATIVE [facility] Comment on above: Performed By: #### E RUR #### [facility] [address] [place] [address] [place] LEUKOCYTES Negative Normal NEGATIVE [facility] Comment on above: Performed By: #### E RUR #### [facility] [address] [place] [address] [place] Nitrite Ql (U) Negative Normal NEGATIVE [facility] Comment on above: Performed By: #### E RUR #### [facility] [address] [place] [address] [place] pH (U) 6.0 [pH] Normal 5-9 [facility] Comment on above: Performed By: #### E RUR #### [facility] [address] [place] [address] [place] SPEC GRAVITY 1.025 Normal 1.005-<=1.025 [facility] Comment on above: Performed By: #### E RUR #### [facility] [address] [place] [address] [place] UA PROTEIN Negative Normal NEGATIVE/ TRACE [facility] Comment on above: Performed By: #### E RUR #### [facility] [address] [place] [address] [place] UR MICRO IND NOT INDICATED Normal [facility] Comment on above: Performed By: #### E RUR #### [facility] [address] [place] [address] [place] Urobilinogen Qn (U) 0.2 {Rachel'U}/dL Normal 0.2 - 1. 0 [facility] Comment on above: Performed By: #### E RUR #### [facility] [address] [place] [address] [place] CBCon 09-03-2020 Erythrocyte distribution width (RBC) [Ratio] 12.4 % Normal 11.8-14.4 [facility] Comment on above: Performed By: #### C BC, HCG, CP #### [facility] [address] [place] [address] [place] [address] Rn Transitional Care: Josué Monae MD #### HIVCMB, PHEP #### [address] [id number] Rn Transitional Care: Thang Nielsen MD Hematocrit (Bld) [Volume fraction] 47.9 % High 36.3-47.1 [facility] Comment on above: Performed By: #### C BC, HCG, CP #### [facility] [address] [place] [address] Rn Transitional Care: Josué Monae MD #### HIVCMB, PHEP #### [address] [id number] Rn Transitional Care: Thang Nielsen MD Hemoglobin (Bld) [Mass/Vol] 15.6 g/dL High 11.9-15.1 [facility] Comment on above: Performed By: #### C BC, HCG, CP #### [address] [place], [place] [id number] Rn Transitional Care: Josué Monae MD #### HIVCMB, PHEP #### [address] [id number] Rn Transitional Care: Thang Nielsen MD MCH (RBC) [Entitic mass] 30.6 pg Normal 25.2-33.5 [facility] Comment on above: Performed By: #### C BC, HCG, CP #### [address] [place] [id number] Rn Transitional Care: Josué Monae MD #### HIVCMB, PHEP #### [address] [id number] Rn Transitional Care: Thang Nielsen MD MCHC (RBC) [Mass/Vol] 32.6 g/dL Normal 28.4-34.8 [facility] Comment on above: Performed By: #### C BC, HCG, CP #### [address] [place] [id number] Rn Transitional Care: Josué Monae MD #### HIVCMB, PHEP #### [address] [place] [address] Rn Transitional Care: Thang Nielsen MD MCV (RBC) [Entitic vol] 94.1 fL Normal 82.6-102.9 [facility] Comment on above: Performed By: #### C BC, HCG, CP #### [address] [place], [place] [id number] Rn Transitional Care: Josué Monae MD #### HIVCMB, PHEP #### [address] [id number] Rn Transitional Care: Thang Nielsen MD NRBC Automated 0.0 per 100 WBC Normal 0.0 [facility] Comment on above: Performed By: #### C BC, HCG, CP #### [facility] [address] [place] [address] [place], [place] [id number] Rn Transitional Care: Josué Monae MD #### HIVCMB, PHEP #### [address] [place], [place] [id number] Rn Transitional Care: Thang Nielsen MD Platelet mean volume (Bld) [Entitic vol] 9.8 fL Normal 8.1-13.5 [facility] Comment on above: Performed By: #### C BC, HCG, CP #### [facility] [address] [place] [address] [place] [id number] Rn Transitional Care: Josué Monae MD #### HIVCMB, PHEP #### [address] [id number] Rn Transitional Care: Thang Nielsen MD Platelets (Bld) [#/Vol] 394 10*3/uL Normal 138-453 [facility] Comment on above: Performed By: #### C BC, HCG, CP #### [facility] [address] [place] [address] [place] [id number] Rn Transitional Care: Josué Monae MD #### HIVCMB, PHEP #### [address] [address] Rn Transitional Care: Thang Nielsen MD RBC (Bld) [#/Vol] 5.09 10*6/uL Normal 3.95-5.11 [facility] Comment on above: Performed By: #### C BC, HCG, CP #### [facility] [address] [place] [address] [place], [place] [id number] Rn Transitional Care: Josué Monae MD #### HIVCMB, PHEP #### [address] [place], [place] [id number] Rn Transitional Care: Thang Nielsen MD WBC (Bld) [#/Vol] 9.1 10*3/uL Normal 3.5-11.3 [facility] Comment on above: Performed By: #### C BC, HCG, CP #### [facility] [address] [place] [address] Rn Transitional Care: Josué Monae MD #### HIVCMB, PHEP #### [facility] [address] [place], [place] [phone] Rn Transitional Care: Thang Nielsen MD CBCOrdered By: Channing Yin on 09-03-2020 Hematocrit (Bld) [Volume fraction] 47.9 % High 36.3 - 47.1 % [employer] Phone: Hemoglobin.gastrointe stinal spec 1 Ql (Stl) 15.6 g/dL High 11.9 - 15.1 g/dL [employer] Phone: Interpretation and review of laboratory results Abnormal [employer] Phone: MCH (RBC) [Entitic mass] 30.6 pg 25.2 - 33.5 pg [employer] Phone: MCHC (RBC) [Mass/Vol] 32.6 g/dL 28.4 - 34.8 g/dL [employer] Phone: MCV (RBC) [Entitic vol] 94.1 fL 82.6 - 102.9 fL [employer] Phone: NRBC Automated 0.0 0.0 per 100 WBC [employer] Phone: Platelet distribution width (Bld) [Ratio] 12.4 % 11.8 - 14.4 % [employer] Phone: Platelet mean volume (Bld) [Entitic vol] 9.8 fL 8.1 - 13.5 fL [employer] Phone: Platelets (Bld) [#/Vol] 394 10*3/uL [facility] [employer] Phone: RBC (Bld) [#/Vol] 5.09 10*6/uL 3.95 - 5.1 1 m/uL [facility] [employer] Phone: WBC (Bld) [#/Vol] 9.1 10*3/uL [facility] [employer] Phone: [facility] Phone: Comp Metabolic Profon 2020 (cont.) Normal [facility] Comment on above: Result Comment: Aver age GFR for 30-39 years old: 107 mL/min/1.73sq m Chronic Kidney Disease: <60 mL/min/1.73sq m Kidney failure: <15 mL/min/1.73sq m eGFR calculated using average adult body mass. Additional eGFR calculator available at: http://www.[employer]/multiple_crcl_2011.htm Performed By: #### C BC, HCG, CP #### [facility] [address] [place] [address] Rn Transitional Care: Josué Monae MD #### HIVCMB, PHEP #### [address] [place] [address] Rn Transitional Care: Thang Nielsen MD Albumin [Mass/Vol] 4.2 g/dL Normal 3.5-5.2 [facility] Comment on above: Performed By: #### C BC, HCG, CP #### [facility] [address] [place] [address] Rn Transitional Care: Josué Monae MD #### HIVCMHayley, PHEP #### [address] [address] Rn Transitional Care: Thang Nielsen MD Albumin/Glob Ratio 1.2 Normal 1.0-2.5 [facility] Comment on above: Performed By: #### C BC, HCG, CP #### [facility] [address] [place], [place] [id number] Rn Transitional Care: Josué Monae MD #### HIVCMB, PHEP #### [address] [place], [place] [id number] Rn Transitional Care: Thang Nielsen MD Alkaline Phos 116 U/L High 35-104 [facility] Comment on above: Performed By: #### C BC, HCG, CP #### [facility] [address] [place], [place] 1572383 Rn Transitional Care: Josué Monae MD #### HIVCMB, PHEP #### [address] [place], [place] [id number] Rn Transitional Care: Thang Nielsen MD ALT [Catalytic activity/Vol] 96 U/L High 5-33 [facility] Comment on above: Performed By: #### C BC, HCG, CP #### [facility] [address] [place], [place] [id number] Rn Transitional Care: Josué Monae MD #### HIVCMHayley, PHEP #### [address] [place] [address] Rn Transitional Care: Thang Nielsen MD Anion gap [Moles/Vol] 11 mmol/L Normal 9-17 [facility] Comment on above: Performed By: #### C BC, HCG, CP #### [facility] [address] [place], [place] [id number] Rn Transitional Care: Josué Monae MD #### HIVCMB, PHEP #### [address] [address] Rn Transitional Care: Thang Nielsen MD AST [Catalytic activity/Vol] 61 U/L High <32 [facility] Comment on above: Performed By: #### C BC, HCG, CP #### [facility] [address] [place], [place] [id number] Rn Transitional Care: Josué Monae MD #### HIVCMB, PHEP #### [address] [place], [place] [phone] Rn Transitional Care: Thang Nielsen MD Bilirubin [Mass/Vol] 1.47 mg/dL High 0.3-1.2 [facility] Comment on above: Performed By: #### C BC, HCG, CP #### [facility] [address] [place] [address] Rn Transitional Care: Jousé Monae MD #### HIVCMB, PHEP #### [address] [id number] Rn Transitional Care: Thang Nielsen MD BUN/CRE Ratio 17 Normal 9-20 [facility] Comment on above: Performed By: #### C BC, HCG, CP #### [facility] [address] [place] [address] Rn Transitional Care: Josué Monae MD #### HIVCMB, PHEP #### [address] [id number] Rn Transitional Care: Thang Nielsen MD Calcium [Mass/Vol] 9.7 mg/dL Normal 8.6-10.4 [facility] Comment on above: Performed By: #### C BC, HCG, CP #### [facility] [address] [place] [address] [place] [address] Rn Transitional Care: Josué Monae MD #### HIVCMB, PHEP #### [address] [id number] Rn Transitional Care: Thang Nielsen MD Chloride [Moles/Vol] 104 mmol/L Normal 98-107 [facility] Comment on above: Performed By: #### C BC, HCG, CP #### [address] [place], [place] [phone] Rn Transitional Care: Josué Monae MD #### HIVCMB, PHEP #### [address] [phone] Rn Transitional Care: Thang Nielsen MD CO2 [Moles/Vol] 26 mmol/L Normal 20-31 [facility] Comment on above: Performed By: #### C BC, HCG, CP #### [address] [place], [place] [phone] Rn Transitional Care: Josué Monae MD #### HIVCMB, PHEP #### [address] [phone] Rn Transitional Care: Thang Nielsen MD Creatinine [Mass/Vol] 0.76 mg/dL Normal 0.50-0.90 [facility] Comment on above: Performed By: #### C BC, HCG, CP #### [address] [place], [place] 0997883 Rn Transitional Care: Josué Monae MD #### HIVCMB, PHEP #### [address] [address] Rn Transitional Care: Thang Nieslen MD GFR, Amer >60 Normal >60 [facility] Comment on above: Performed By: #### C BC, HCG, CP #### [facility] [address] [place] [address] [place], [place] 8946083 Rn Transitional Care: Josué Monae MD #### HIVCMB, PHEP #### [address] [id number] Rn Transitional Care: Thang Nielsen MD GFR,non Amer >60 Normal >60 [facility] Comment on above: Performed By: #### C BC, HCG, CP #### [facility] [address] [place] [address] [address] [place], [place] [id number] Rn Transitional Care: Josué Monae MD #### HIVCMB, PHEP #### [address] [place], [place] 3620108 Rn Transitional Care: Thang Nielsen MD Glucose [Mass/Vol] 112 mg/dL High 70-99 [facility] Comment on above: Performed By: #### C BC, HCG, CP #### [address] [place], [place] 8699183 Rn Transitional Care: Josué Monae MD #### HIVCMB, PHEP #### [address] [place], [place] 0148808 Rn Transitional Care: Thang Nielsen MD Potassium [Moles/Vol] 4.0 mmol/L Normal 3.7-5.3 [facility] Comment on above: Performed By: #### C BC, HCG, CP #### [address] [place] [phone] Rn Transitional Care: Josué Monae MD #### HIVCMB, PHEP #### [address] [phone] Rn Transitional Care: Thang Nielsen MD Protein [Mass/Vol] 7.6 g/dL Normal 6.4-8.3 [facility] Comment on above: Performed By: #### C BC, HCG, CP #### [address] [place] [address] Rn Transitional Care: Josué Monae MD #### HIVCMB, PHEP #### [address] [place], [place] 5699508 Rn Transitional Care: Thang Nielsen MD Sodium [Moles/Vol] 141 mmol/L Normal 135-144 [facility] Comment on above: Performed By: #### C BC, HCG, CP #### [address] [place] [address] Rn Transitional Care: Josué Monae MD #### HIVCMB, PHEP #### [facility] [address] [place] [address] Rn Transitional Care: Thang Nielsen MD Staging: Normal [facility] Comment on above: Result Comment: Stag e 1: Some kidney damage normal GFR Stage 2: Mild kidney damage GFR 60-89 Stage 3: Moderate kidney damage GFR 30-59 Stage 4: Severe kidney damage GFR 15-29 Stage 5: Severe kidney damage GFR <15 ESRD - chronic treatment by dialysis or transplant Performed By: #### C BC, HCG, CP #### [facility] [address] [place] [address] Rn Transitional Care: Josué Monae MD #### HIVCMB, PHEP #### [facility] [address] [place] [address] Rn Transitional Care: Thang Nielsen MD Urea nitrogen [Mass/Vol] 13 mg/dL Normal 6-20 [facility] Comment on above: Performed By: #### C BC, HCG, CP #### [facility] [address] [place] [address] Rn Transitional Care: Josué Monae MD #### HIVCMB, PHEP #### [facility] [employer] [address] [address] [place] [address] Rn Transitional Care: Thang Nielsen MD Comprehensive Metabolic Pane lOrdered By: Channing Yin on 09-03-2020 Albumin [Mass/Vol] 4.2 g/dL 3.5 - 5.2 g/dL [facility] [employer] Work Phone: Albumin/Globulin [Mass ratio] 1.2 {ratio} [facility] [employer] Phone: ALP (Bld) [Catalytic activity/Vol] 116 U/L High 35 - 104 U/L [facility] [employer] Phone: ALT [Catalytic activity/Vol] 96 U/L High 5 - 33 U/L [facility] [employer] Phone: Anion gap [Moles/Vol] 11 mmol/L 9 - 17 mmol/L [facility] [employer] Phone: AST [Catalytic activity/Vol] 61 U/L High <32 [facility] [employer] Phone: Bilirubin [Mass/Vol] 1.47 mg/dL High 0.3 - 1 .2 mg/dL [facility] Phone: Calcium [Mass/Vol] 9.7 mg/dL 8.6 - 10. 4 mg/dL [facility] Phone: Chloride [Moles/Vol] 104 mmol/L 98 - 10 7 mmol/L [facility] Phone: CO2 [Moles/Vol] 26 mmol/L 20 - 31 mmol/L [facility] [employer] Phone: Creatinine [Mass/Vol] 0.76 mg/dL 0.50 - 0.90 mg/dL [facility] [employer] Phone: Free PSA/Total PSA [Mass fraction] 7.6 g/dL 6.4 - 8.3 g/dL [facility] [employer] Phone: GFR >60 >60 mL/min [employer] Phone: GFR Non- >60 >60 mL/min [facility] [employer] Phone: Glucose [Mass/Vol] 112 mg/dL High 70 - 99 mg/dL [facility] [employer] Work Phone: Interpretation and review of laboratory results Abnormal [facility] [employer] Phone: Potassium [Moles/Vol] 4.0 mmol/L 3.7 - 5.3 mmol/L [facility] [employer] Phone: Sodium [Moles/Vol] 141 mmol/L 135 - 144 mmol/L [facility] [employer] Phone: Urea nitrogen (BldV) [Mass/Vol] 13 mg/dL 6 - 20 mg/dL [employer] Phone: Urea nitrogen/Creatinine (Bld) [Mass ratio] 17 [employer] Phone: [facility] [employer] Phone: HCG Qualitative, SerumOrdere d By: Channing Yin on 09-03-2020 hCG Qual Negative NEGATIVE [facility] Center[facility]ationszentrum [facility] Phone: Comment on above: Specimens with hCG l evels near the threshold of the test (25 mIU/mL) may give a negative or indeterminate result. In such cases, another test should be performed with a new specimen in 48-72 hours. If early is suspected clinically in this setting, correlation with quantitative serum b-hCG level is suggested. [employer] has confirmed the use of plasma for this test. This has not been cleared or approved by the U.S. Food and Drug Administration. The FDA has determined that such clearance is not necessary. [employer] Phone: HCG Screen, Bloodon 09-04-19 21 HCG Screen, Blood Negative Normal NEG [facility] Comment on above: Result Comment: Spec imens with hCG levels near the threshold of the test (25 mIU/mL) may give a negative or indeterminate result. In such cases, another test should be performed with a new specimen in 48-72 hours. If early is suspected clinically in this setting, correlation with quantitative serum b-hCG level is suggested. [employer] has confirmed the use of plasma for this test. This has not been cleared or approved by the U.S. Food and Drug Administration. The FDA has determined that such clearance is not necessary. Performed By: #### C BC, HCG, CP #### [facility] [address] [place] [address] Rn Transitional Care: Josué Monae MD #### HIVCMB, PHEP #### [address] [place] [address] Rn Transitional Care: Thang Nielsen MD HIV Ag/Abon 09-03-2020 HIV Ag/Ab Non-Reactive Normal NR [facility] Comment on above: Result Comment: No l aboratory evidence of HIV infection. If acute HIV infection is suspected, consider testing for HIV-1 RNA. Performed By: #### C BC, HCG, CP #### [address] [place] [address] Rn Transitional Care: Josué Monae MD #### HIVCMB, PHEP #### [address] [phone] Rn Transitional Care: Thang Nielsen MD HIV ScreenOrdered By: Channing Yin on 09-03-2020 HIV Ag/Ab Non-Reactive NONREACTIVE [facility] Work Phone: Comment on above: No laboratory eviden ce of HIV infection. If acute HIV infection is suspected, consider testing for HIV-1 RNA. [facility] Work Phone: Hepatitis Acute [facility] 09-03 Hep A Ab,IgM Non-Reactive Normal NR [facility] Comment on above: Performed By: #### C BC, HCG, CP #### [address] [place] [address] Rn Transitional Care: Josué Monae MD #### HIVCMB, PHEP #### [address] [address] Rn Transitional Care: Thang Nielsen MD Hep B Core Ab,IgM Non-Reactive Normal NR [facility] Comment on above: Performed By: #### C BC, HCG, CP #### [address] [place] [address] Rn Transitional Care: Josué Monae MD #### HIVCMB, PHEP #### [address] [address] Rn Transitional Care: Thang Nielsen MD Hep B Surf Ag Non-Reactive Normal NR [facility] Comment on above: Performed By: #### C BC, HCG, CP #### [address] [place] [address] Rn Transitional Care: Josué Monae MD #### HIVCMB, PHEP #### [facility] [address] [place], [place] [phone] Rn Transitional Care: Thang Nielsen MD Hep C Ab Reactive Abnormal NR [facility] Comment on above: Result Comment: [...] By: #### C BC, HCG, CP #### [address] [place] [address] Rn Transitional Care: Josué Monae MD #### HIVCMB, PHEP #### [address] [place], [place] [phone] Rn Transitional Care: Thang Nielsen MD Hepatitis Panel, AcuteOrdere d By: Channing Yin on 09-03-2020 HAV IgM IA Qn (S) Non-Reactive NONREACTIVE [facility] Work Phone: Hep B Core Ab, IgM Non-Reactive NONREACTIVE [facility] Work Phone: Hepatitis B Surface Ag Non-Reactive NONREACTIVE [facility] Work Phone: Hepatitis C Ab Reactive Abnormal NONREACTIVE [facility] Work Phone: Comment on above: The [...] Interpretation and review of laboratory results Abnormal [facility] Work Phone: [employer] Phone: Laboratory - Chemistry and C hemistry - challengeOrdered By: Channing Yin on 09-03-2020 GFR/1.73 sq M.predicted MDRD (S/P/Bld) [Vol rate/Area] [employer] Phone: Comment on above: Average GFR for 30-3 9 years old: 107 mL/min/1.73sq m Chronic Kidney Disease: <60 mL/min/1.73sq m Kidney failure: <15 mL/min/1.73sq m eGFR calculated using average adult body mass. Additional eGFR calculator available at: http://www.[employer]/ReadyPulse_crcl_2011.htm Stage 1: Some kidney damage normal GFR [...] Health Department Report Status FINAL 11/19/2019 Normal [facility] Comment on above: Performed By: #### H CVQ #### [facility] [employer] [facility] [place] [address] Rn Transitional Care: Thang Nielsen MD [facility] [address] [place] [address] Rn Transitional Care: Arnoldo Soni MD CBCon 11-15-2019 Erythrocyte distribution width (RBC) [Ratio] 12.6 % Normal 11.8-14.4 [facility] Comment on above: Performed By: #### C BC, CP, HCG #### [address] [place], [place] [phone] Rn Transitional Care: Arnoldo Soni MD #### PHEP, HIVCMB #### [address] [id number] Rn Transitional Care: Thang Nielsen MD Hematocrit (Bld) [Volume fraction] 45.5 % Normal 36.3-47.1 [facility] Comment on above: Performed By: #### C BC, CP, HCG #### [address] [place] [id number] Rn Transitional Care: Arnoldo Soni MD #### PHEP, HIVCMB #### [address] [address] Rn Transitional Care: Thang Nielsen MD Hemoglobin (Bld) [Mass/Vol] 14.7 g/dL Normal 11.9-15.1 [facility] Comment on above: Performed By: #### C BC, CP, HCG #### [address] [place] [phone] Rn Transitional Care: Arnoldo Soni MD #### PHEP, HIVCMB #### [address] [address] Rn Transitional Care: Thang Nielsen MD MCH (RBC) [Entitic mass] 31.3 pg Normal 25.2-33.5 [facility] Comment on above: Performed By: #### C BC, CP, HCG #### [address] [place], [place] 9799783 Rn Transitional Care: Arnoldo Soni MD #### PHEP, HIVCMB #### [address] [id number] Rn Transitional Care: Thang Nielsen MD MCHC (RBC) [Mass/Vol] 32.3 g/dL Normal 28.4-34.8 [facility] Comment on above: Performed By: #### C BC, CP, HCG #### [facility] [address] [place] [address] [address] [place] [phone] Rn Transitional Care: Arnoldo Soni MD #### PHEP, HIVCMB #### [address] [id number] Rn Transitional Care: Thang Nielsen MD MCV (RBC) [Entitic vol] 97.0 fL Normal 82.6-102.9 [facility] Comment on above: Performed By: #### C BC, CP, HCG #### [address] [place] [phone] Rn Transitional Care: Arnoldo Soni MD #### PHEP, HIVCMB #### [address] [id number] Rn Transitional Care: Thang Nielsen MD NRBC Automated 0.0 per 100 WBC Normal 0.0 [facility] Comment on above: Performed By: #### C BC, CP, HCG #### [facility] [address] [place] [address] [address] [place] [phone] Rn Transitional Care: Arnoldo Soni MD #### PHEP, HIVCMB #### [address] [address] Rn Transitional Care: Thang Nielsen MD Platelet mean volume (Bld) [Entitic vol] 10.3 fL Normal 8.1-13.5 [facility] Comment on above: Performed By: #### C BC, CP, HCG #### [facility] [address] [place] [address] [place] [phone] Rn Transitional Care: Arnoldo Soni MD #### PHEP, HIVCMB #### [address], [place] 3522808 Rn Transitional Care: Thang Nielsen MD Platelets (Bld) [#/Vol] 434 10*3/uL Normal 138-453 [facility] Comment on above: Performed By: #### C BC, CP, HCG #### [facility] [address] [place] [address] [place] [place], [place] [phone] Rn Transitional Care: Arnoldo Soni MD #### PHEP, HIVCMB #### [address] [phone] Rn Transitional Care: Thang Nielsen MD RBC (Bld) [#/Vol] 4.69 10*6/uL Normal 3.95-5.11 [facility] Comment on above: Performed By: #### C BC, CP, HCG #### [address] [place], [place] 3689183 Rn Transitional Care: Arnoldo Soni MD #### PHEP, HIVCMB #### [address] [address] Rn Transitional Care: Thang Nielsen MD WBC (Bld) [#/Vol] 7.9 10*3/uL Normal 3.5-11.3 [facility] Comment on above: Performed By: #### C BC, CP, HCG #### [facility] [address] [place] [address] [place] [phone] Rn Transitional Care: Arnoldo Soni MD #### PHEP, HIVCMB #### [address] [address] Rn Transitional Care: Thang Nielsen MD Erythrocyte distribution width (RBC) [Ratio] 12.6 % 11.8 - 14.4 % [place], [place] Hematocrit (Bld) [Volume fraction] 45.5 % 36.3 - 47.1 % [place] Hemoglobin (Bld) [Mass/Vol] 14.7 g/dL 11.9 - 15.1 g/dL [place] MCH (RBC) [Entitic mass] 31.3 pg 25.2 - 33.5 pg [place] MCHC (RBC) [Mass/Vol] 32.3 g/dL 28.4 - 34.8 g/dL [place] MCV (RBC) [Entitic vol] 97.0 fL 82.6 - 102.9 fL [place] Platelet mean volume (Bld) [Entitic vol] 10.3 fL 8.1 - 13.5 fL [place], [place] Platelets (Bld) [#/Vol] 434 10*3/uL [place] RBC (Bld) [#/Vol] 4.69 10*6/uL 3.95 - 5.1 1 m/uL [place] WBC (Bld) [#/Vol] 0.0 10*3/uL 0.0 per 10 0 WBC [place] WBC (Bld) [#/Vol] 7.9 10*3/uL [place] Comp Metabolic Profon 2019 (cont.) Normal [facility] Comment on above: Result Comment: Aver age GFR for 30-39 years old: 107 mL/min/1.73sq m Chronic Kidney Disease: <60 mL/min/1.73sq m Kidney failure: <15 mL/min/1.73sq m eGFR calculated using average adult body mass. Additional eGFR calculator available at: http://www.[employer]/multiple_crcl_2011.htm Performed By: #### C BC, CP, HCG #### [facility] [address] [place] [address] Rn Transitional Care: Arnoldo Soni MD #### SALV[place]OR, HIVCMB #### [address] [address] Rn Transitional Care: Thang Nielsen MD Albumin [Mass/Vol] 3.8 g/dL Normal 3.5-5.2 [facility] Comment on above: Performed By: #### C BC, CP, HCG #### [address] [place], [place] 3061483 Rn Transitional Care: Arnoldo Soni MD #### PHEP, HIVCMB #### [address] [id number] Rn Transitional Care: Thang Nielsen MD Albumin/Glob Ratio 1.2 Normal 1.0-2.5 [facility] Comment on above: Performed By: #### C BC, CP, HCG #### [address] [place], [place] 0273783 Rn Transitional Care: Arnoldo Soni MD #### PHEP, HIVCMB #### [address] [phone] Rn Transitional Care: Thang Nielsen MD Alkaline Phos 72 U/L Normal 35-104 [facility] Comment on above: Performed By: #### C BC, CP, HCG #### [address] [place], [place] 9254083 Rn Transitional Care: Arnoldo Soni MD #### PHEP, HIVCMB #### [address] [id number] Rn Transitional Care: Thang Nielsen MD ALT [Catalytic activity/Vol] 72 U/L High 5-33 [facility] Comment on above: Performed By: #### C BC, CP, HCG #### [address] [place], [place] 3585783 Rn Transitional Care: Arnoldo Soni MD #### PHEP, HIVCMB #### [address] [address] Rn Transitional Care: Thang Nielsen MD Anion gap [Moles/Vol] 9 mmol/L Normal 9-17 [facility] Comment on above: Performed By: #### C BC, CP, HCG #### [address] [place] [address] Rn Transitional Care: Arnoldo Soni MD #### PHEP, HIVCMB #### [address] [place], [place] 5373908 Rn Transitional Care: Thang Nielsen MD AST [Catalytic activity/Vol] 49 U/L High <32 [facility] Comment on above: Performed By: #### C BC, CP, HCG #### [facility] [address] [place] [phone] Rn Transitional Care: Arnoldo Soni MD #### PHEP, HIVCMB #### [address] [place], [place] 3685208 Rn Transitional Care: Thang Nielsen MD Bilirubin [Mass/Vol] 0.32 mg/dL Normal 0.3-1.2 [facility] Comment on above: Performed By: #### C BC, CP, HCG #### [address] [place] [phone] Rn Transitional Care: Arnoldo Soni MD #### PHEP, HIVCMB #### [address] [phone] Rn Transitional Care: Thang Nielsen MD BUN/CRE Ratio 18 Normal 9-20 [facility] Comment on above: Performed By: #### C BC, CP, HCG #### [facility] [address] [place] [address] [place] [phone] Rn Transitional Care: Arnoldo Soni MD #### PHEP, HIVCMB #### [address] [place] [address] Rn Transitional Care: Thang Nielsen MD Calcium [Mass/Vol] 9.3 mg/dL Normal 8.6-10.4 [facility] Comment on above: Performed By: #### C BC, CP, HCG #### [facility] [address] [place], [place] [phone] Rn Transitional Care: Arnoldo Soni MD #### PHEP, HIVCMB #### [address] [place], [place] [phone] Rn Transitional Care: Thang Nielsen MD Chloride [Moles/Vol] 105 mmol/L Normal 98-107 [facility] Comment on above: Performed By: #### C BC, CP, HCG #### [facility] [address] [place], [place] 5726483 Rn Transitional Care: Arnoldo Soni MD #### PHEP, HIVCMB #### [address] [id number] Rn Transitional Care: Thang Nielsen MD CO2 [Moles/Vol] 25 mmol/L Normal 20-31 [facility] Comment on above: Performed By: #### C BC, CP, HCG #### [facility] [address] [place], [place] 0363583 Rn Transitional Care: Arnoldo Soni MD #### PHEP, HIVCMB #### [address] [id number] Rn Transitional Care: Thang Nielsen MD Creatinine [Mass/Vol] 0.57 mg/dL Normal 0.50-0.90 [facility] Comment on above: Performed By: #### C BC, CP, HCG #### [facility] [address] [place], [place] [id number] Rn Transitional Care: Arnoldo Soni MD #### PHEP, HIVCMB #### [address] [id number] Rn Transitional Care: Thang Nielsen MD GFR, Amer >60 Normal >60 [facility] Comment on above: Performed By: #### C BC, CP, HCG #### [facility] [address] [place], [place] [id number] Rn Transitional Care: Arnoldo Soni MD #### PHEP, HIVCMB #### [address] [place] [address] Rn Transitional Care: Thang Nielsen MD GFR,non Amer >60 Normal >60 [facility] Comment on above: Performed By: #### C BC, CP, HCG #### [facility] [address] [place], [place] [id number] Rn Transitional Care: Arnoldo Soni MD #### PHEP, HIVCMB #### [address] [place] [address] Rn Transitional Care: Thang Nielsen MD Glucose [Mass/Vol] 120 mg/dL High 70-99 [facility] Comment on above: Performed By: #### C BC, CP, HCG #### [facility] [address] [place], [place] [id number] Rn Transitional Care: Arnoldo Soni MD #### PHEP, HIVCMB #### [address] [address] Rn Transitional Care: Thang Nielsen MD Potassium [Moles/Vol] 3.7 mmol/L Normal 3.7-5.3 [facility] Comment on above: Performed By: #### C BC, CP, HCG #### [facility] [address] [place], [place] [id number] Rn Transitional Care: Arnoldo Soni MD #### PHEP, HIVCMB #### [address] [address] Rn Transitional Care: Thang Nielsen MD Protein [Mass/Vol] 7.1 g/dL Normal 6.4-8.3 [facility] Comment on above: Performed By: #### C BC, CP, HCG #### [facility] [address] [place], [place] [id number] Rn Transitional Care: Arnoldo Soni MD #### PHEP, HIVCMB #### [address] [address] Rn Transitional Care: Thang Nielsen MD Sodium [Moles/Vol] 139 mmol/L Normal 135-144 [facility] Comment on above: Performed By: #### C CAROL CP, HCG #### [facility] [address] [place], [place] [phone] Rn Transitional Care: Arnoldo Soni MD #### SALVADOR HIVCMB #### [facility] [address] [place] [address] Rn Transitional Care: Thang Nielsen MD Staging: Normal [facility] Comment on above: Result Comment: Stag e 1: Some kidney damage normal GFR Stage 2: Mild kidney damage GFR 60-89 Stage 3: Moderate kidney damage GFR 30-59 Stage 4: Severe kidney damage GFR 15-29 Stage 5: Severe kidney damage GFR <15 ESRD - chronic treatment by dialysis or transplant Performed By: #### C CAROL CP, HCG #### [address] [place], [place] [id number] Rn Transitional Care: Arnoldo Soni MD #### PHEDonald HIVCMB #### [facility] [address] [place] [address] Rn Transitional Care: Thang Nielsen MD Urea nitrogen [Mass/Vol] 10 mg/dL Normal 6-20 [facility] Comment on above: Performed By: #### Sana MEDINA CP, HCG #### [address] [place], [place] [phone] Rn Transitional Care: Arnoldo Soni MD #### PHEP HIVCMB #### [facility] [address] [place] [address] Rn Transitional Care: Thang Nielsen MD Comprehensive Metabolic Pane leonardo 11-15-2019 Albumin [Mass/Vol] 3.8 g/dL 3.5 - 5.2 g/dL [place], [place] Albumin/Globulin [Mass ratio] 1.2 {ratio} [place], [place] ALP [Catalytic activity/Vol] 72 U/L 35 - 104 U/L [place] ALT [Catalytic activity/Vol] 72 U/L High 5 - 33 U/L [place] Anion gap [Moles/Vol] 9 mmol/L 9 - 17 mmol/L [place] AST [Catalytic activity/Vol] 49 U/L High <32 [place] Bilirubin Ql (U) 0.32 mg/dL 0.3 - 1.2 mg/dL [place] Bun/Cre Ratio 18 [place], [place] Calcium [Mass/Vol] 9.3 mg/dL 8.6 - 10. 4 mg/dL [place] Chloride [Moles/Vol] 105 mmol/L 98 - 10 7 mmol/L [place] CO2 [Moles/Vol] 25 mmol/L 20 - 31 mmol/L [place] Creatinine [Mass/Vol] 0.57 mg/dL 0.5 - 0.9 mg/dL [place] GFR >60 >60 mL/min [place], [place] GFR Non- >60 >60 mL/min [place] Glucose [Mass/Vol] 120 mg/dL High 70 - 99 mg/dL [place], [place] Interpretation and review of laboratory results Abnormal [place] Potassium [Moles/Vol] 3.7 mmol/L 3.7 - 5.3 mmol/L [place] Protein [Mass/Vol] 7.1 g/dL 6.4 - 8.3 g/dL [place], [place] Sodium [Moles/Vol] 139 mmol/L 135 - 144 mmol/L [place] Urea nitrogen [Mass/Vol] 10 mg/dL 6 - 20 mg/dL [place] HCG Qualitative, Serumon hCG Qual Negative NEGATIVE [place] Comment on above: Specimens with hCG l evels near the threshold of the test (25 mIU/mL) may give a negative or indeterminate result. In such cases, another test should be performed with a new specimen in 48-72 hours. If early is suspected clinically in this setting, correlation with quantitative serum b-hCG level is suggested. [facility] has confirmed the use of plasma for this test. This has not been cleared or approved by the U.S. Food and Drug Administration. The FDA has determined that such clearance is not necessary. HCG Screen, Bloodon 11-15-19 20 HCG Screen, Blood Negative Normal NEG [facility] Comment on above: Result Comment: Spec imens with hCG levels near the threshold of the test (25 mIU/mL) may give a negative or indeterminate result. In such cases, another test should be performed with a new specimen in 48-72 hours. If early is suspected clinically in this setting, correlation with quantitative serum b-hCG level is suggested. [facility] has confirmed the use of plasma for this test. This has not been cleared or approved by the U.S. Food and Drug Administration. The FDA has determined that such clearance is not necessary. Performed By: #### C BC, CP, HCG #### [address] [place] [address] Rn Transitional Care: Arnoldo Soni MD #### PHEP, HIVCMB #### [facility] [address] [place] [address] Rn Transitional Care: Thang Nielsen MD HIV Ag/Abon 11-15-2019 HIV Ag/Ab Non-Reactive Normal NR [facility] Comment on above: Result Comment: No l aboratory evidence of HIV infection. If acute HIV infection is suspected, consider testing for HIV-1 RNA. Performed By: #### C BC, HCG, CP #### [address] [place] [address] Rn Transitional Care: Josué Monae MD #### HIVCMB, PHEP #### [facility] [address] [place] [address] Rn Transitional Care: Thang Nielsen MD HIV Screenon 11-15-2019 HIV Ag/Ab NONREACTIVE NONREACTIVE [facility] [place], [place] Comment on above: No laboratory eviden ce of HIV infection. If acute HIV infection is suspected, consider testing for HIV-1 RNA. Hepatitis Acute [facility] 11-14 Hep A Ab,IgM Non-Reactive Normal NR [facility] Comment on above: Performed By: #### C BC, CP, HCG #### [facility] [address] [place], [place] [phone] Rn Transitional Care: Arnoldo Soni MD #### PHEP, HIVCMB #### [address] [id number] Rn Transitional Care: Thang Nielsen MD Hep B Core Ab,IgM Non-Reactive Normal [place] Comment on above: Performed By: #### C BC, CP, HCG #### [address] [place], [place] [phone] Rn Transitional Care: Arnoldo Soni MD #### PHEP, HIVCMB #### [address] [id number] Rn Transitional Care: Thang Nielsen MD Hep B Surf Ag Non-Reactive Normal [facility] Comment on above: Performed By: #### C BC, CP, HCG #### [address] [place] [address] Rn Transitional Care: Arnoldo Soni MD #### PHEP, HIVCMB #### [address] [id number] Rn Transitional Care: Thang Nielsen MD Hep C Ab Reactive Abnormal [place] Comment on above: Result Comment: The hepatitis [...] By: #### C BC, CP, HCG #### [address] [place] [address] Rn Transitional Care: Arnoldo Soni MD #### PHEP, HIVCMB #### [facility] [address] [place] [id number] Rn Transitional Care: Thang Nielsen MD Hepatitis Panel, Acuteon HAV IgM IA Qn (S) NONREACTIVE NONREACTIVE [place] Hep B Core Ab, IgM NONREACTIVE NONREACTIVE [place] Hepatitis B Surface Ag NONREACTIVE NONREACTIVE [place] Hepatitis C Ab REACTIVE Abnormal NONREACTIVE [facility] [place] [place] Comment on above: The hepatitis C [...] Interpretation and review of laboratory results Abnormal [place] Metabolic Panelon 11-15-2019 GFR/1.73 sq M predicted among non-blacks MDRD (S/P/Bld) [Vol rate/Area] [place] Comment on above: Stage 1: Some [...] body mass. Additional eGFR calculator available at: http://www.[employer].com/multiple_crcl_2012.htm *BLOOD CULTUREon 01-02-2019 Bacteria identified Cx Nom (Bld) Clinical Report: (D) Specimen: BLOOD CULTURE Collected: 01/02/2019 09:25 Status: Final Last Updated: 01/07/2019 14:41 (1) Rt bicep CULT RES (Final) No Growth Day 5 Normal [facility] Comment on above: Order Comment: No: D o not add to previous draw Performed By: #### 4 1000, , 70362 #### [facility] [address] [place] [address], [facility] Bacteria identified Cx Nom (Bld) Clinical Report: (D) Specimen: BLOOD CULTURE Collected: 01/02/2019 09:25 Status: Final Last Updated: 01/07/2019 14:41 (1) Rt wrist CULT RES (Final) No Growth Day 5 Normal [facility] Comment on above: Order Comment: No: D o not add to previous draw Performed By: #### 4 1000, , 59704 #### [facility] [address] [place] [address], [place] BASIC METABOLIC PANELon 11-2 Calcium [Mass/Vol] 8.7 mg/dL Normal 8.6-10.3 [facility] Comment on above: Order Comment: No: D o not add to previous draw Performed By: #### 4 1000, , 87675 #### [facility] [address] [place] [address], [place] Chloride [Moles/Vol] 110 mmol/L High 98-107 [facility] Comment on above: Order Comment: No: D o not add to previous draw Performed By: #### 4 1000, , 05406 #### [facility] [address] [place] [address], [place] CO2 [Moles/Vol] 23 mmol/L Normal 21-31 [facility] Comment on above: Order Comment: No: D o not add to previous draw Performed By: #### 4 1000, 27135, 44926 #### [facility] [address] [place] [address], [place] Creatinine [Mass/Vol] 0.52 mg/dL Low 0.60-1.20 [facility] Comment on above: Order Comment: No: D o not add to previous draw Performed By: #### 4 1000, , 35588 #### [facility] [address] [place] [address], [place] GFR/1.73 sq M predicted among blacks MDRD (S/P/Bld) [Vol rate/Area] mL/min/{1.73_m2} Normal >60 [facility] Comment on above: Order Comment: No: D o not add to previous draw Performed By: #### 4 1000, 24975, 90007 #### [facility] [address] [place] [address], [place] GFR/1.73 sq M predicted among non-blacks MDRD (S/P/Bld) [Vol rate/Area] mL/min/{1.73_m2} Normal >60 [facility] Comment on above: Order Comment: No: D o not add to previous draw Performed By: #### 4 1000, , 04199 #### [facility] [address] [place] [address], [place] Glucose [Mass/Vol] 94 mg/dL Normal 70-100 [facility] Comment on above: Order Comment: No: D o not add to previous draw Performed By: #### 4 1000, , 62601 #### [facility] [address] [place] [address], [place] Potassium [Moles/Vol] 3.8 mmol/L Normal 3.5-5.1 [facility] Comment on above: Order Comment: No: D o not add to previous draw Performed By: #### 4 1000, , 50333 #### [facility] [address] [place] [address], [place] Sodium [Moles/Vol] 140 mmol/L Normal 136-145 [facility] Comment on above: Order Comment: No: D o not add to previous draw Performed By: #### 4 1000, , 61663 #### [facility] [address] [place] [address], [place] Urea nitrogen [Mass/Vol] 4 mg/dL Low 7-25 [facility] Comment on above: Order Comment: No: D o not add to previous draw Performed By: #### 4 1000, 97628, 88816 #### [facility] [address] [place] [address], [facility] C REACTIVE PROTEINon 019 CRP [Mass/Vol] 32.9 mg/L High 0.0-7.0 [facility] Comment on above: Order Comment: No: D o not add to previous draw Performed By: #### 4 1000, 76732, 93547 #### [facility] [address] [place] [id number], [facility] CBC COMPLETE BLOOD COUNTon 03-04-2018 Erythrocyte distribution width (RBC) [Ratio] 13.2 % Normal 11.5-15.0 [facility] Comment on above: Order Comment: No: D o not add to previous draw Performed By: #### 5 0608, 18500 #### [facility] [address] [place] [address], [facility] Hematocrit (Bld) [Volume fraction] 34.0 % Low 36.0-45.0 [facility] Comment on above: Order Comment: No: D o not add to previous draw Performed By: #### 5 0608, 46368 #### [facility] [address] [place] [id number], [facility] Hemoglobin (Bld) [Mass/Vol] 11.2 g/dL Low 12.0-15.0 [facility] Comment on above: Order Comment: No: D o not add to previous draw Performed By: #### 5 0608, 78151 #### [facility] [address] [place] [address], [place] MCH (RBC) [Entitic mass] 30.9 pg Normal 27.0-33.0 [facility] Comment on above: Order Comment: No: D o not add to previous draw Performed By: #### 5 0608, 70252 #### [facility] [address] [place] MCHC (RBC) [Mass/Vol] 32.9 g/dL Normal 32.0-35.0 [facility] Comment on above: Order Comment: No: D o not add to previous draw Performed By: #### 5 607, 17364 #### [facility] [address] [place] [address], [facility] MCV (RBC) [Entitic vol] 93.7 fL Normal 82.0-98.0 [facility] Comment on above: Order Comment: No: D o not add to previous draw Performed By: #### 5 607, 60882 #### [facility] [address] [place] [address], [facility] Nucleated RBC/100 WBC (Bld) [Ratio] 0 % Normal 0-0 [facility] Comment on above: Order Comment: No: D o not add to previous draw Performed By: #### 5 607, 77723 #### [facility] [address] [place] [address], [facility] PLAT CNT 534 10*3/uL High 150-400 [facility] Comment on above: Order Comment: No: D o not add to previous draw Performed By: #### 5 607, 94456 #### [facility] [address] [place] [address], [facility] RBC (Bld) [#/Vol] 3.63 10*6/uL Low 3.80-5.00 [facility] Comment on above: Order Comment: No: D o not add to previous draw Performed By: #### 5 607, 17263 #### [facility] [address] [place] [address], [facility] WBC (Bld) [#/Vol] 7.69 10*3/uL Normal 4.00-10.60 [facility] Comment on above: Order Comment: No: D o not add to previous draw Performed By: #### 5 607, 67805 #### [facility] SEDIMENTATION RATEon 019 SED RATE 60 mm/hr High 0-20 [facility] Comment on above: Order Comment: No: D o not add to previous draw Performed By: #### 4 1000, 70517, 55706 #### [address] HAND LEFT 3 [facility] 01-01-2019 HAND LEFT 3 [facility] Department of Radiology [address] [place] [id number] Patient Name: MORRIS DURAN : 1985 Sex: F Age: Race: White Pt. Location: [id number] Patient Status: D Ordered Date: 01/01/2019 10:40:00 AM Completed Date: 01/01/2019 01:09 PM Requesting Provider: EMERSON KOCH Attending Provider: BRIANNA LOPEZ Report Copy To: Signs & Symptoms: Gangrene History: See Comments Comments: R/O Osteomyelitis Exam: HAND LEFT 3 [facility] HAND LEFT 3 [facility] 01/01/2019 1:09 PM EST SIGNS AND SYMPTOMS: [...] findings. Electronically signed by:Dante Hill. Transcribed by: [email or web address], User Resident: BEAR CHAMPION Electronically Signed by: DANTE HILL @ 01/04/2019 04:45 PM I personally read this/these film(s) with this resident Normal [facility] Comment on above: Order Comment: No: D o not add to previous draw MRI LUMBAR SPINE W WO CONTRA STon 01-01-2019 MRI LUMBAR SPINE W WO CONTRAST [facility] Department of Radiology [address] [place] [id number] Patient Name: MORRIS DURAN : 1985 Sex: F Age: Race: White Pt. Location: [address] [place] [address] Patient Status: I Ordered Date: 12/31/2018 9:35:00 [...] anteriorly Electronically signed by:Sivan Kimble. Transcribed by: [email or web address], User Resident: Electronically Signed by: SIVAN KIMBLE @ 01/02/2019 10:10 AM Normal [facility] Comment on above: Order Comment: No: D o not add to previous draw URINALYSIS REFLEXon 01-02-20 19 Appearance (U) SL CLOUDY Abnormal CLEAR [facility] Comment on above: Order Comment: No: D o not add to previous draw Criteria for reflexing a culture was not met. Please call the lab at [phone] within 24 hours of collection time if culture is needed Performed By: #### 3 0965 #### [facility] [address] [place] [address], [place] Bilirubin [Mass/Vol] Negative Normal NEGATIVE [facility] Comment on above: Order Comment: No: D o not add to previous draw Criteria for reflexing a culture was not met. Please call the lab at [phone] within 24 hours of collection time if culture is needed Performed By: #### 3 0965 #### [facility] [address] [place] [address], [place] BLOOD Negative Normal NEGATIVE [facility] Comment on above: Order Comment: No: D o not add to previous draw Criteria for reflexing a culture was not met. Please call the lab at 7668 within 24 hours of collection time if culture is needed Performed By: #### 3 0965 #### [facility] [address] [place] [address], [place] Color (U) YELLOW Normal YELLOW [facility] Comment on above: Order Comment: No: D o not add to previous draw Criteria for reflexing a culture was not met. Please call the lab at 7668 within 24 hours of collection time if culture is needed Performed By: #### 3 0965 #### [facility] [address] [place] [address], [place] EPIS MANY Abnormal FEW,OCC,NONE SEEN [facility] Comment on above: Order Comment: No: D o not add to previous draw Criteria for reflexing a culture was not met. Please call the lab at 7668 within 24 hours of collection time if culture is needed Performed By: #### 3 0965 #### [facility] [address] [place] [address], [place] Glucose [Mass/Vol] Negative Normal NEGATIVE [facility] Comment on above: Order Comment: No: D o not add to previous draw Criteria for reflexing a culture was not met. Please call the lab at 7668 within 24 hours of collection time if culture is needed Performed By: #### 3 0965 #### [facility] [address] [place] [address], [facility] KETONE 80 mg/dL Abnormal NEGATIVE [facility] Comment on above: Order Comment: No: D o not add to previous draw Criteria for reflexing a culture was not met. Please call the lab at 7668 within 24 hours of collection time if culture is needed Performed By: #### 3 0965 #### [facility] [address] [place] [address], [facility] LEUK MARIANA Negative Normal NEGATIVE [facility] Comment on above: Order Comment: No: D o not add to previous draw Criteria for reflexing a culture was not met. Please call the lab at 7668 within 24 hours of collection time if culture is needed Performed By: #### 3 0965 #### [facility] [address] [facility] [place] [place] [address], [facility] MUCUS THREADS FEW Abnormal NONE SEEN [facility] Comment on above: Order Comment: No: D o not add to previous draw Criteria for reflexing a culture was not met. Please call the lab at 7668 within 24 hours of collection time if culture is needed Performed By: #### 3 0965 #### [facility] [address] [facility] [place] [address], [facility] Nitrite Ql (U) Negative Normal NEGATIVE [facility] Comment on above: Order Comment: No: D o not add to previous draw Criteria for reflexing a culture was not met. Please call the lab at 7668 within 24 hours of collection time if culture is needed Performed By: #### 3 0965 #### [facility] [address] [place] [address], [facility] pH (Bld) 5.0 Normal 5.0-8.0 [facility] Comment on above: Order Comment: No: D o not add to previous draw Criteria for reflexing a culture was not met. Please call the lab at 7668 within 24 hours of collection time if culture is needed Performed By: #### 3 0965 #### [facility] [address] [place] [address], [facility] Protein (U) [Mass/Vol] 30 mg/dL Abnormal NEGATIVE [facility] Comment on above: Order Comment: No: D o not add to previous draw Criteria for reflexing a culture was not met. Please call the lab at [phone] within 24 hours of collection time if culture is needed Performed By: #### 3 0965 #### [facility] [address] [facility] [place] [address], [facility] RBC (U) [#/Vol] 0-2 Abnormal NONE SEEN [facility] Comment on above: Order Comment: No: D o not add to previous draw Criteria for reflexing a culture was not met. Please call the lab at 7668 within 24 hours of collection time if culture is needed Performed By: #### 3 0965 #### [facility] [address] SPEC GRAV 1.028 High 1.015-1.020 [facility] Comment on above: Order Comment: No: D o not add to previous draw Criteria for reflexing a culture was not met. Please call the lab at 7668 within 24 hours of collection time if culture is needed Performed By: #### 3 0965 #### [facility] [address] [facility] [place] [address], [facility] WBC UA 6-10 Abnormal NONE SEEN [facility] Comment on above: Order Comment: No: D o not add to previous draw Criteria for reflexing a culture was not met. Please call the lab at 7668 within 24 hours of collection time if culture is needed Performed By: #### 3 0965 #### [facility] [address] [facility] [place] [address], [facility] AMMONIA BLOODon 12-31-2018 Ammonia (P) [Mass/Vol] 42 umol/L Normal 16-53 [facility] Comment on above: Order Comment: No: D o not add to previous draw Performed By: #### 2 1408 #### [facility] [address] [place] [address], [place] BASIC METABOLIC PANELon 11-2 Calcium [Mass/Vol] 8.9 mg/dL Normal 8.6-10.3 [facility] Comment on above: Order Comment: No: D o not add to previous draw Performed By: #### 4 1000, , 61802 #### [facility] [address] [place] [address], [place] Chloride [Moles/Vol] 108 mmol/L High 98-107 [facility] Comment on above: Order Comment: No: D o not add to previous draw Performed By: #### 4 1000, , 06017 #### [facility] [address] [place] [address], [place] CO2 [Moles/Vol] 23 mmol/L Normal 21-31 [facility] Comment on above: Order Comment: No: D o not add to previous draw Performed By: #### 4 1000, , 27939 #### [facility] [address] [place] [address], [place] Creatinine [Mass/Vol] 0.54 mg/dL Low 0.60-1.20 [facility] Comment on above: Order Comment: No: D o not add to previous draw Performed By: #### 4 1000, , 12352 #### [facility] [address] [place] [address], [place] GFR/1.73 sq M predicted among blacks MDRD (S/P/Bld) [Vol rate/Area] mL/min/{1.73_m2} Normal >60 [facility] Comment on above: Order Comment: No: D o not add to previous draw Performed By: #### 4 1000, , 75009 #### [facility] [address] [place] [address], [place] GFR/1.73 sq M predicted among non-blacks MDRD (S/P/Bld) [Vol rate/Area] mL/min/{1.73_m2} Normal >60 [facility] Comment on above: Order Comment: No: D o not add to previous draw Performed By: #### 4 1000, 27095, 67903 #### [facility] [address] [place] [address], [place] Glucose [Mass/Vol] 66 mg/dL Low 70-100 [facility] Comment on above: Order Comment: No: D o not add to previous draw Performed By: #### 4 1000, 91273, 66945 #### [facility] [address] [place] [address], [place] Potassium [Moles/Vol] 3.6 mmol/L Normal 3.5-5.1 [facility] Comment on above: Order Comment: No: D o not add to previous draw Performed By: #### 4 1000, , [id number] #### [facility] [address] [place] [address], [place] Sodium [Moles/Vol] 140 mmol/L Normal 136-145 [facility] Comment on above: Order Comment: No: D o not add to previous draw Performed By: #### 4 1000, , 23288 #### [facility] [address] [place] [address], [place] Urea nitrogen [Mass/Vol] 8 mg/dL Normal 7-25 [facility] Comment on above: Order Comment: No: D o not add to previous draw Performed By: #### 4 1000, 09255, 86037 #### [facility] [address] [place] [address], [place] CBC W/DIFFon 12-31-2018 ABS BASOPHILS 0.0 10*3/uL Normal 0.0-0.2 [facility] Comment on above: Order Comment: No: D o not add to previous draw Performed By: #### 5 0103 #### [facility] [address] [place] [address], [facility] ABS IMM GRANS 0.0 10*3/uL Normal 0.0-0.2 [facility] Comment on above: Order Comment: No: D o not add to previous draw Performed By: #### 5 0103 #### [facility] [address] [place] [address], [facility] ABS NEUTROPHILS 6.8 10*3/uL Normal 1.6-7.6 [facility] Comment on above: Order Comment: No: D o not add to previous draw Performed By: #### 5 0103 #### [facility] [address] [address], [facility] Basophils/100 WBC (Bld) 0.3 % Normal 0.0-1.0 [facility] Comment on above: Order Comment: No: D o not add to previous draw Performed By: #### 5 0103 #### [facility] [address] [place] [address], [facility] Eosinophils (Bld) [#/Vol] 0.3 10*3/uL Normal 0.0-0.5 [facility] Comment on above: Order Comment: No: D o not add to previous draw Performed By: #### 5 0103 #### [facility] [address] [place] [address], [facility] Eosinophils/100 WBC (Bld) 2.9 % Normal 0.0-6.0 [facility] Comment on above: Order Comment: No: D o not add to previous draw Performed By: #### 5 0103 #### [facility] [address] [place] [address], [facility] Erythrocyte distribution width (RBC) [Ratio] 12.8 % Normal 11.5-15.0 [facility] Comment on above: Order Comment: No: D o not add to previous draw Performed By: #### 5 0103 #### [facility] [address] [place] [address], [facility] Hematocrit (Bld) [Volume fraction] 33.6 % Low 36.0-45.0 [facility] Comment on above: Order Comment: No: D o not add to previous draw Performed By: #### 5 0103 #### [facility] [address] [place] [id number], [facility] Hemoglobin (Bld) [Mass/Vol] 10.9 g/dL Low 12.0-15.0 [facility] Comment on above: Order Comment: No: D o not add to previous draw Performed By: #### 5 0103 #### [facility] [address] [place] [id number], [facility] IMMATURE GRANS 0.4 % Normal 0.0-1.0 [facility] Comment on above: Order Comment: No: D o not add to previous draw Performed By: #### 5 0103 #### [facility] [address] [place] [address], [facility] Lymphocytes (Bld) [#/Vol] 1.9 10*3/uL Normal 1.2-4.0 [facility] Comment on above: Order Comment: No: D o not add to previous draw Performed By: #### 5 0103 #### [facility] [address] [place] [address], [facility] Lymphocytes/100 WBC (Bld) 19.6 % Low 20.0-45.0 [facility] Comment on above: Order Comment: No: D o not add to previous draw Performed By: #### 5 0103 #### [facility] [address] [place] [address], [facility] MCH (RBC) [Entitic mass] 30.6 pg Normal 27.0-33.0 [facility] Comment on above: Order Comment: No: D o not add to previous draw Performed By: #### 5 0103 #### [facility] [address] [place] [id number], [facility] MCHC (RBC) [Mass/Vol] 32.4 g/dL Normal 32.0-35.0 [facility] Comment on above: Order Comment: No: D o not add to previous draw Performed By: #### 5 0103 #### [facility] [address] [place] [address], [facility] MCV (RBC) [Entitic vol] 94.4 fL Normal 82.0-98.0 [facility] Comment on above: Order Comment: No: D o not add to previous draw Performed By: #### 5 0103 #### [facility] [address] [facility] [place] [place] [address], [facility] Monocytes (Bld) [#/Vol] 0.8 10*3/uL Normal 0.1-1.0 [facility] Comment on above: Order Comment: No: D o not add to previous draw Performed By: #### 5 0103 #### [facility] [address] [facility] [place] [address], [facility] MONOS 7.9 % Normal 5.0-12.0 [facility] Comment on above: Order Comment: No: D o not add to previous draw Performed By: #### 5 0103 #### [facility] [address] [facility] [place] [address], [facility] Neutrophils/100 WBC (Bld) 68.9 % Normal 40.0-72.0 [facility] Comment on above: Order Comment: No: D o not add to previous draw Performed By: #### 5 0103 #### [facility] [address] [facility] [place] [place] [address], [facility] Nucleated RBC/100 WBC (Bld) [Ratio] 0 % Normal 0-0 [facility] Comment on above: Order Comment: No: D o not add to previous draw Performed By: #### 5 3 #### [facility] [address] [place] [id number], [facility] PLAT CNT 452 10*3/uL High 150-400 [facility] Comment on above: Order Comment: No: D o not add to previous draw Performed By: #### 5 0103 #### [facility] [address] [place] [address], [facility] RBC (Bld) [#/Vol] 3.56 10*6/uL Low 3.80-5.00 [facility] Comment on above: Order Comment: No: D o not add to previous draw Performed By: #### 5 0103 #### [facility] [address] [place] [address], [facility] WBC (Bld) [#/Vol] 9.82 10*3/uL Normal 4.00-10.60 [facility] Comment on above: Order Comment: No: D o not add to previous draw Performed By: #### 5 0103 #### [facility] [address] [facility] [place] [place] [address], [facility] LITHIUMon 12-31-2018 Pacific [Moles/Vol] Normal [facility] Comment on above: Order Comment: Yes: Add to Previous draw if able Result Comment: Test Performed by [facility] [address] [place] [address] - Released 12/31/2018 21:21 Result changed by IF on 12/31/2018 21:21. The previous value was Test Performed by [facility] [address] [place] [address] [phone] Pacific [Moles/Vol] mmol/L Low 0.6-1.2 [facility] Comment on above: Order Comment: Yes: Add to Previous draw if able LIVER BATTERYon 12-31-2018 Albumin [Mass/Vol] 3.4 g/dL Low 3.5-5.7 [facility] Comment on above: Order Comment: Yes: Add to Previous draw if able Performed By: #### 9 9909 #### [facility] [address] [place] [address], [facility] ALKALINE PHOSPH 66 IU/L Normal 34-104 [facility] Comment on above: Order Comment: Yes: Add to Previous draw if able Performed By: #### 9 9909 #### [facility] [address] [place] [address], [facility] ALT [Catalytic activity/Vol] 40 U/L Normal 7-52 [facility] Comment on above: Order Comment: Yes: Add to Previous draw if able Performed By: #### 9 9909 #### [facility] [address] [place] [address], [facility] AST [Catalytic activity/Vol] 41 U/L High 13-39 [facility] Comment on above: Order Comment: Yes: Add to Previous draw if able Performed By: #### 9 9909 #### [facility] [address] [place] [address], [place] Bilirubin [Mass/Vol] 0.4 mg/dL Normal 0.3-1.0 [facility] Comment on above: Order Comment: Yes: Add to Previous draw if able Performed By: #### 9 9909 #### [facility] [address] [place] [address], [facility] Bilirubin.direct [Mass/Vol] 0.2 mg/dL Normal 0.0-0.2 [facility] Comment on above: Order Comment: Yes: Add to Previous draw if able Performed By: #### 9 9909 #### [facility] [address] [place] [address], [facility] Protein [Mass/Vol] 6.1 g/dL Normal 6.0-8.3 [facility] Comment on above: Order Comment: Yes: Add to Previous draw if able Performed By: #### 9 9909 #### [facility] [address] [place] [address], [place] MAGNESIUM BLOODon 12-31-2018 Magnesium [Mass/Vol] 2.0 mg/dL Normal 1.9-2.7 [facility] Comment on above: Order Comment: No: D o not add to previous draw Performed By: #### 4 1000, 00033, 09406 #### [facility] [address] [place] [address], [facility] PHOSPHORUS BLOODon 9 Phosphate [Mass/Vol] 2.5 mg/dL Normal 2.5-5.0 [facility] Comment on above: Order Comment: No: D o not add to previous draw Performed By: #### 4 1000, 59812, 31230 #### [facility] [address] [place], [place] [id number] [place] [address] PROCALCITONINon 12-31-2018 PROCALCITONIN 0.10 ng/mL Normal 0.00-0.10 [facility] Comment on above: Order Comment: [...] PCT<0.5ng/mL Performed By: #### 3 1488 #### [facility] [address] [place], [place] [address] [place] [address] Basic Metabolic Profon 05-05 -2019 (cont.) Normal [facility] Comment on above: Result Comment: Aver age GFR for 30-39 years old: 107 mL/min/1.73sq m Chronic Kidney Disease: <60 mL/min/1.73sq m Kidney failure: <15 mL/min/1.73sq m eGFR calculated using average adult body mass. Additional eGFR calculator available at: http://www.[employer]/multiple_crcl_2012.htm Performed By: #### U AX, UMICAO #### [facility] [place] [address] Anion gap molar conc 12 mmol/L Normal 9-17 [facility] Comment on above: Performed By: #### U AX, UMICAO #### [facility] [address] [place] [address] Calcium mass conc 9.6 mg/dL Normal 8.6-10.4 [facility] Comment on above: Performed By: #### U AX, UMICAO #### [facility] [address] [place] [address] Chloride molar conc 104 mmol/L Normal 98-107 [facility] Comment on above: Performed By: #### U AX, UMICAO #### [facility] [address] [place] [address]1478 CO2 molar conc 21 mmol/L Normal 20-31 [facility] Comment on above: Performed By: #### U AX, UMICAO #### [facility] [address] [place] [address] Creatinine mass conc 0.75 mg/dL Normal 0.50-0.90 [facility] Comment on above: Performed By: #### U AX, UMICAO #### [facility] [address] [place] [address] GFR, Amer >60 Normal >60 [facility] Comment on above: Performed By: #### U AXMAO #### [facility] [address] [place] [address] GFR,non Amer >60 Normal >60 [facility] Comment on above: Performed By: #### U AXMAO #### [facility] [address] [place] [address] Glucose mass conc 105 mg/dL High 70-99 [facility] Comment on above: Performed By: #### U AX UMBETHANY #### [facility] [address] [place] [address]26[address] Potassium molar conc 3.9 mmol/L Normal 3.7-5.3 [facility] Comment on above: Performed By: #### U AXMAO #### [facility] [address] [place] [address] 97173 Sodium molar conc 137 mmol/L Normal 135-144 [facility] Comment on above: Performed By: #### U AXMAO #### [facility] [address] [place] [address] Urea nitrogen mass conc 12 mg/dL Normal 6-20 [facility] Comment on above: Performed By: #### U AXMAO #### [facility] [address] [place] [address] BUN/CRE Ratio NOT REPORTED Normal 9-20 [facility] Comment on above: Performed By: #### U AXDEMIICAKimmie #### [facility] [address] [place] [address]792 Staging: NOT REPORTED Normal [facility] Comment on above: Performed By: #### U AX UMICAKimmie #### [facility] [address] [place] [address] CBC with Diffon 06-10-2018 Abs. Basophil 0.06 k/uL Normal 0.00-0.20 [facility] Comment on above: Performed By: #### U AXMAO #### [facility] [address] [place] [address] Abs.Imm.Granulocyte 0.04 k/uL Normal 0.00-0.30 [facility] Comment on above: Performed By: #### U AXMAO #### [facility] [address] [place] [address] Abs.Neutrophil (Seg) 5.70 k/uL Normal 1.50-8.10 [facility] Comment on above: Performed By: #### U AXMAO #### [facility] [address] [place] [address] Basophils/100 WBC (Bld) 1 % Normal 0-2 [facility] Comment on above: Performed By: #### U AXMAO #### [facility] [address] [place] [address] 89911 Eosinophils #/vol (Bld) 0.29 10*3/uL Normal 0.00-0.44 [facility] Comment on above: Performed By: #### U AXMAO #### [facility] [address] [place] [address] Eosinophils/100 WBC (Bld) 3 % Normal 1-4 [facility] Comment on above: Performed By: #### U AXMAO #### [facility] [address] [place] [address] 12366 Erythrocyte distribution width Ratio (RBC) 11.9 % Normal 11.8-14.4 [facility] Comment on above: Performed By: #### U AXMAO #### [facility] [address] [place] [address] 36475 Hematocrit Volume Fraction (Bld) 42.5 % Normal 36.3-47.1 [facility] Comment on above: Performed By: #### U AXMAO #### [facility] [address] [place] [address]753 Hemoglobin mass conc (Bld) 14.0 g/dL Normal 11.9-15.1 [facility] Comment on above: Performed By: #### U AXMAO #### [facility] [address] [place] [address] 59620 Immature granulocytes #/vol (Bld) 0 % Normal 0 [facility] Comment on above: Performed By: #### U AXMAO #### [facility] [address] [place] [address]99 Lymphocytes #/vol (Bld) 2.41 10*3/uL Normal 1.10-3.70 [facility] Comment on above: Performed By: #### U AXMAO #### [facility] [address] [place] [address]120 Lymphocytes/100 WBC (Bld) 26 % Normal 24-43 [facility] Comment on above: Performed By: #### U AXMAO #### [facility] [address] [place] [address] 84095 MCH Entitic mass (RBC) 30.8 pg Normal 25.2-33.5 [facility] Comment on above: Performed By: #### U AXDEMIICAKimmie #### [facility] [address] [place] [address] 19074 MCHC mass conc (RBC) 32.9 g/dL Normal 28.4-34.8 [facility] Comment on above: Performed By: #### U AX UMICAO #### [facility] [address] [place] [address] 17768 MCV Entitic volume (RBC) 93.4 fL Normal 82.6-102.9 [facility] Comment on above: Performed By: #### U AXMAO #### [address] [address] Monocytes #/vol (Bld) 0.86 10*3/uL Normal 0.10-1.20 [facility] Comment on above: Performed By: #### U AXMAO #### [address] [address] Monocytes/100 WBC (Bld) 9 % Normal 3-12 [facility] Comment on above: Performed By: #### U AXMAO #### [address] [address] Neutrophil (Seg) 61 % Normal 36-65 [facility] Comment on above: Performed By: #### U AXMAO #### [address] [address] NRBC Automated 0.0 per 100 WBC Normal 0.0 [facility] Comment on above: Performed By: #### U AXMAO #### [address] [address] Platelet mean volume Entitic volume (Bld) 9.9 fL Normal 8.1-13.5 [facility] Comment on above: Performed By: #### U AXMAO #### [address] [address] Platelets #/vol (Bld) 410 10*3/uL Normal 138-453 [facility] Comment on above: Performed By: #### U AXDEMIICAO #### [address] [address] RBC #/vol (Bld) 4.55 10*6/uL Normal 3.95-5.11 [facility] Comment on above: Performed By: #### U AX, UMICAO #### [facility] [address] [place] [address] 37692 WBC #/vol (Bld) 9.4 10*3/uL Normal 3.5-11.3 [facility] Comment on above: Performed By: #### U AX, UMICAO #### [facility] [address] [place] [address]694 Auto Diff Performed NOT REPORTED Normal [facility] Comment on above: Performed By: #### U AX, UMICAO #### [facility] [address] [place] [address] 77150 Platelets #/vol (Bld) NOT REPORTED Normal [facility] Comment on above: Performed By: #### U AX, UMICAO #### [facility] [address] [place] [address]40 RBC morphology finding Nom (Bld) NOT REPORTED Normal [facility] Comment on above: Performed By: #### U AX, UMICAO #### [facility] [address] [place] [address] 38436 WBC Morphology NOT REPORTED Normal [facility] Comment on above: Performed By: #### U AX, UMICAO #### [facility] [address] [place] [address] ABDOMEN PELVIS WO CONTRAS Ton 06-10-2018 [...] Sean Garcia MD 06/10/18 Final result Normal [facility] HCG Screen, Bloodon 06-11-19 19 HCG Qn Negative Normal NEG [facility] Comment on above: Result Comment: Spec imens with hCG levels near the threshold of the test (25 mIU/mL) may give a negative or indeterminate result. In such cases, another test should be performed with a new specimen in 48-72 hours. If early is suspected clinically in this setting, correlation with quantitative serum b-hCG level is suggested. [facility] has confirmed the use of plasma for this test. This has not been cleared or approved by the U.[place]. Food and Drug Administration. The FDA has determined that such clearance is not necessary. Performed By: #### MAO MASTERS #### [facility] [address] [place] [address] Cult,Urine,CCon 06-09-2018 Cult,Urine,CC Specimen Description .CLEAN CATCH URINE Special Requests NOT REPORTED Culture NO SIGNIFICANT GROWTH Report Status FINAL 06/09/2018 Normal [facility] Comment on above: Performed By: #### MAO MASTERS #### [facility] [address] [place] [address] Drug Scr, Abuse, Uron 2018 Amphetamine(s),Ur Positive Abnormal NEG [facility] Comment on above: Result Comment: (Positive cutoff 1000 ng/mL) Performed By: #### U AX, UMICAO #### [facility] [address] [place] [address] Barbiturate(s),Ur Negative Normal NEG [facility] Comment on above: Result Comment: (Positive cutoff 200 ng/mL) Performed By: #### U AX, UMICAO #### [facility] [address] [place] [address] 85658 Base excess Calculated molar conc (Bld) Negative Normal NEG [facility] Comment on above: Result Comment: (Positive cutoff 300 ng/mL) Performed By: #### U AX, UMICAO #### [facility] [address] [place] [address]18 Benzodiazepine(s) Negative Normal NEG [facility] Comment on above: Result Comment: (Positive cutoff 200 ng/mL) Performed By: #### U AX, UMICAO #### [facility] [address] [place] [address] Cannabinoid(s),Ur Negative Normal NEG [facility] Comment on above: Result Comment: (Positive cutoff 50 ng/mL) Performed By: #### U AX, UMICAO #### [facility] [address] [place] [address]61 Interpretive Info Assay provides medical screening only. The absence of expected drug(s) and/or Normal [facility] Comment on above: Result Comment: meta bolite(s) may indicate diluted or adulterated urine, limitations of testing or timing of collection. Testing for legal purposes should be confirmed by another method. To request confirmation of test result, please call the lab within 7 days of sample submission. Performed By: #### U AX, UMICAO #### [facility] [address] [place] [address]164 Methadone Ql (U) Negative Normal NEG [facility] Comment on above: Result Comment: (Positive cutoff 300 ng/mL) Performed By: #### U AXMAO #### [facility] [address] [place] [address] 39475 Opiate(s), Ur Negative Normal NEG [facility] Comment on above: Result Comment: (Positive cutoff 300 ng/mL) Performed By: #### U AXDEMIICAO #### [facility] [address] [place] [address] 47829 Oxycodone, Urine Negative Normal NEG [facility] Comment on above: Result Comment: (Positive cutoff 100 ng/mL) Performed By: #### U AXMAO #### [facility] [address] [place] [address] 89023 Phencyclidine, Ur Negative Normal NEG [facility] Comment on above: Result Comment: (Positive cutoff 25 ng/mL) Performed By: #### U AXMAO #### [facility] [address] [place] [address]671 Buprenorphrine, Ur NOT REPORTED Normal NEG [facility] Comment on above: Performed By: #### U AXMAO #### [facility] [address] [place] [address]157 MDMA, Urine NOT REPORTED Normal NEG [facility] Comment on above: Performed By: #### U AXMAO #### [facility] [address] [place] [address] 35962 Methamphetamine, Ur NOT REPORTED Normal NEG [facility] Comment on above: Performed By: #### U AXMAO #### [facility] [address] [place] [address] Protein mass conc (U) NOT REPORTED Normal NEG [facility] Comment on above: Performed By: #### U AXDEMIICAKimmie #### [facility] [address] [place] [address] 75159 Tricyclic antidepressants Screen Ql (U) NOT REPORTED Normal NEG [facility] Comment on above: Performed By: #### U MAO ROSARIO #### [facility] [address] [place] [address]62 UA w/Reflex Cultureon 2018 Bilirubin.direct mass conc Negative Abnormal NEG [facility] Comment on above: Performed By: #### MAO MASTERS #### [facility] [address] [place] [address]12 Comment Culture ordered based on defined criteria. Normal [facility] Comment on above: Performed By: #### MAO MASTERS #### [facility] [address] [place] [address] 64968 Acetoacetic Acid,Ur Negative Normal NEG [facility] Comment on above: Performed By: #### MAO MASTERS #### [employer] [address] [place] [address] 81659 Color Nom (U) DARK YELLOW Abnormal YEL [facility] Comment on above: Performed By: #### MAO MASTERS #### [facility] [address] [place] [address] 69173 Glucose mass conc Negative Normal NEG [facility] Comment on above: Performed By: #### U MAO ROSARIO #### [facility] [address] [place] [address] 49633 Hemoglobin mass conc (Bld) TRACE Abnormal NEG [facility] Comment on above: Performed By: #### U MAO ROSARIO #### [facility] [address] [place] [address] 85782 Leuckocyte Esterase MODERATE Abnormal NEG [facility] Comment on above: Performed By: #### U MAO ROSARIO #### [employer] [address] [place] [address] 88451 Nitrite,Ur Positive Abnormal NEG [facility] Comment on above: Performed By: #### U AXMAO #### [facility] [address] [place] [address] 35090 PH,Ur 5.5 Normal 5.0-8.0 [facility] Comment on above: Performed By: #### U AXMAO #### [facility] [address] [place] [address] 89391 Protein mass conc Negative Normal NEG [facility] Comment on above: Performed By: #### U AXMAO #### [facility] [address] [place] [address] 03759 Spec. Gerton,Ur 1.021 Normal 1.005-1.030 [facility] Comment on above: Performed By: #### U AXMAO #### [facility] [address] [place] [address] 12215 Turbidity CLOUDY Abnormal CLEAR [facility] Comment on above: Performed By: #### U AXMAO #### [facility] [address] [place] [address] 86233 Urobilinogen,Ur Normal Normal NORM [facility] Comment on above: Performed By: #### U AXMAO #### [facility] [address] [place] [address] 82014 Urinalysis,Microon 9 ----- Normal [facility] Comment on above: Performed By: #### U AXMAO #### [facility] [address] [place] [address] 33045 Bacteria LM.HPF #/area (Urine sed) FEW Abnormal NONE [facility] Comment on above: Performed By: #### U AXMAO #### [employer] [address] [place] [address] 50567 Epithelial cells LM.HPF #/area (Urine sed) 50 TO 100 Normal 0-5 [facility] Comment on above: Performed By: #### U AXMAO #### [employer] [facility] [place] [address] Mucus Strands 2+ Abnormal NONE [facility] Comment on above: Performed By: #### U AXMAO #### [employer] [address] [place] [address] 16057 RBC #/vol (U) None Normal 0-2 [facility] Comment on above: Performed By: #### U AXMAO #### [facility] [address] [place] [address] 23515 WBC #/vol (U) 50 TO 100 Normal 0-5 [facility] Comment on above: Performed By: #### U AXMAO #### [employer] [address] [place] [address] 38831 Amorphous sediment LM Ql (Urine sed) NOT REPORTED Normal NONE [facility] Comment on above: Performed By: #### U AXMAO #### [facility] [address] [place] [address] 66854 Casts LM.LPF #/area (Urine sed) NOT REPORTED Normal 0-2 [facility] Comment on above: Performed By: #### U AXMAO #### [employer] [address] [place] [address] 78197 Crystals LM Nom (Urine sed) NOT REPORTED Normal NONE [facility] Comment on above: Performed By: #### U AXMAO #### [employer] [facility] [place] [address] Epithelial, Renal NOT REPORTED Normal 0 [facility] Comment on above: Performed By: #### U AXMAO #### [employer] [facility] [place] [address] Other Observations NOT REPORTED Normal NREQ [facility] Comment on above: Performed By: #### U AXMAO #### [facility] [place] [address] Trichomonas NOT REPORTED Normal NONE [facility] Comment on above: Performed By: #### U AXMAO #### [facility] [employer] [address] [place] [address] 57082 Yeast LM Ql (Urine sed) NOT REPORTED Normal NONE [facility] Comment on above: Performed By: #### U AXMAO #### [facility] [employer] [address] [place] [address] 78746 HCG, ,Urineon 06-04 HCG.beta subunit ( test) Ql (U) Negative Normal NEG [facility] Comment on above: Result Comment: Spec imens with hCG levels near the threshold of the test (25 mIU/mL) may give a negative or indeterminate result. In such cases, another test should be performed with a new specimen in 48-72 hours. If early is suspected clinically in this setting, correlation with quantitative serum b-hCG level is suggested. Performed By: #### U AXMAO #### [facility] [employer] [address] [place] [address] 89667 Urinalysis w/ Microon 2018 ----- Normal [facility] Comment on above: Performed By: #### U AXMAO #### [facility] [address] [place] [address] 40516 Crystals LM Nom (Urine sed) CALCIUM OXALATE Abnormal NONE [facility] Comment on above: Result Comment: FEW Performed By: #### U AXMAO #### [facility] [employer] [address] [place] [address] 28815 Epithelial cells LM.HPF #/area (Urine sed) 0 TO 2 Normal 0-5 [facility] Comment on above: Performed By: #### U AX UMICAO #### [facility] [employer] [address] [place] [address] 39166 Mucus Strands 1+ Abnormal NONE [facility] Comment on above: Performed By: #### U AX, UMICAO #### [facility] [employer] [address] [place] [address] 92634 RBC #/vol (U) 0 TO 2 Normal 0-2 [facility] Comment on above: Performed By: #### U AX UMICAO #### [facility] [employer] [address] [place] [address] 79057 WBC #/vol (U) 2 TO 5 Normal 0-5 [facility] Comment on above: Performed By: #### U AX, UMICAO #### [facility] [employer] [address] [place] [address] 73763 Acetoacetic Acid,Ur TRACE Abnormal NEG [facility] Comment on above: Performed By: #### U AX, UMICAO #### [facility] [employer] [address] [place] [address] 39819 Bilirubin, SemiQt,Ur Negative Normal NEG [facility] Comment on above: Performed By: #### U AX UMICAO #### [facility] [employer] [address] [place] [address] 31044 Color Nom (U) YELLOW Normal YEL [facility] Comment on above: Performed By: #### U AX UMICAO #### [facility] [employer] [address] [place] [address] 81039 Glucose,Semi-qnt,Ur Negative Normal NEG [facility] Comment on above: Performed By: #### U AX, UMICAO #### [facility] [employer] [address] [place] [address] 98370 Hemoglobin, Ur MODERATE Abnormal NEG [facility] Comment on above: Performed By: #### U AX, UMICAO #### [facility] [employer] [address] [place] [address] 11970 Leuckocyte Esterase MODERATE Abnormal NEG [facility] Comment on above: Performed By: #### U AX, UMICAO #### [facility] [employer] [address] [place] [address] 95338 Nitrite,Ur Negative Normal NEG [facility] Comment on above: Performed By: #### U AX, UMICAO #### [facility] [employer] [address] [place] [address] 00235 PH,Ur 5.5 Normal 5.0-8.0 [facility] Comment on above: Performed By: #### U AX, UMICAO #### [facility] [employer] [address] [place] [address] 72770 Protein mass conc (U) TRACE Abnormal NEG [facility] Comment on above: Performed By: #### U AX, UMICAO #### [facility] [employer] [address] [place] [address] 90392 Spec. Gerton,Ur 1.029 Normal 1.005-1.030 [facility] Comment on above: Performed By: #### U AX, UMICAO #### [facility] [employer] [address] [place] [address] 12051 Turbidity TURBID Abnormal CLEAR [facility] Comment on above: Performed By: #### U AX, UMICAO #### [facility] [employer] [address] [place] [address] 11775 Urobilinogen,Ur Normal Normal NORM [facility] Comment on above: Performed By: #### U AX, UMICAO #### [facility] [employer] [address] [place] [address] 11701 Amorphous sediment LM Ql (Urine sed) NOT REPORTED Normal NONE [facility] Comment on above: Performed By: #### U AX, UMICAO #### [address] [address] Bacteria LM.HPF #/area (Urine sed) NOT REPORTED Normal NONE [facility] Comment on above: Performed By: #### U AX, UMICAO #### [address] [address] Casts LM.LPF #/area (Urine sed) NOT REPORTED Normal 0-2 [facility] Comment on above: Performed By: #### U AX, UMICAO #### [address] [address] Epithelial, Renal NOT REPORTED Normal 0 [facility] Comment on above: Performed By: #### U AX, UMICAO #### [address] [address] Other Observations NOT REPORTED Normal NREQ [facility] Comment on above: Performed By: #### U AX, UMICAO #### [address] [address] Trichomonas NOT REPORTED Normal NONE [facility] Comment on above: Performed By: #### U AX, UMICAO #### [address] [address] Yeast LM Ql (Urine sed) NOT REPORTED Normal NONE [facility] Comment on above: Performed By: #### U AX, UMICAO #### [address] [address] CBC with Diffon 12-06-2017 Abs. Basophil 0.04 k/uL Normal 0.00-0.20 [facility] Comment on above: Performed By: #### C P, TSH, FT4, CDP, LIPRF #### [address] [address] Abs.Imm.Granulocyte 0.04 k/uL Normal 0.00-0.30 [facility] Comment on above: Performed By: #### C P, TSH, FT4, CDP, LIPRF #### [address] [address] Abs.Neutrophil (Seg) 4.84 k/uL Normal 1.50-8.10 [facility] Comment on above: Performed By: #### C P, TSH, FT4, CDP, LIPRF #### [address] [address]897 Basophils/100 WBC (Bld) 1 % Normal 0-2 [facility] Comment on above: Performed By: #### C P, TSH, FT4, CDP, LIPRF #### [address] [address] Eosinophils #/vol (Bld) 0.33 10*3/uL Normal 0.00-0.44 [facility] Comment on above: Performed By: #### C P, TSH, FT4, CDP, LIPRF #### [address] [address] Eosinophils/100 WBC (Bld) 4 % Normal 1-4 [facility] Comment on above: Performed By: #### C P, TSH, FT4, CDP, LIPRF #### [address] [address] Erythrocyte distribution width Ratio (RBC) 12.4 % Normal 11.8-14.4 [facility] Comment on above: Performed By: #### C P, TSH, FT4, CDP, LIPRF #### [address] [address] Hematocrit Volume Fraction (Bld) 41.3 % Normal 36.3-47.1 [facility] Comment on above: Performed By: #### C P, TSH, FT4, CDP, LIPRF #### [address] 83263 Hemoglobin mass conc (Bld) 13.8 g/dL Normal 11.9-15.1 [facility] Comment on above: Performed By: #### C P, TSH, FT4, CDP, LIPRF #### [address] [address] Immature granulocytes #/vol (Bld) 1 % High 0 [facility] Comment on above: Performed By: #### C P, TSH, FT4, CDP, LIPRF #### [address] [address] Lymphocytes #/vol (Bld) 2.64 10*3/uL Normal 1.10-3.70 [facility] Comment on above: Performed By: #### C P, TSH, FT4, CDP, LIPRF #### [address] [address]10 Lymphocytes/100 WBC (Bld) 30 % Normal 24-43 [facility] Comment on above: Performed By: #### C P, TSH, FT4, CDP, LIPRF #### [address] [address] MCH Entitic mass (RBC) 31.9 pg Normal 25.2-33.5 [facility] Comment on above: Performed By: #### C P, TSH, FT4, CDP, LIPRF #### [address] 84826 MCHC mass conc (RBC) 33.4 g/dL Normal 28.4-34.8 [facility] Comment on above: Performed By: #### C P, TSH, FT4, CDP, LIPRF #### [address] 0[address] MCV Entitic volume (RBC) 95.6 fL Normal 82.6-102.9 [facility] Comment on above: Performed By: #### C P, TSH, FT4, CDP, LIPRF #### [address] [address]86 Monocytes #/vol (Bld) 0.90 10*3/uL Normal 0.10-1.20 [facility] Comment on above: Performed By: #### C P, TSH, FT4, CDP, LIPRF #### [address] 6[address] Monocytes/100 WBC (Bld) 10 % Normal 3-12 [facility] Comment on above: Performed By: #### C P, TSH, FT4, CDP, LIPRF #### [address] [address] Neutrophil (Seg) 54 % Normal 36-65 [facility] Comment on above: Performed By: #### C P, TSH, FT4, CDP, LIPRF #### [address] [address] NRBC Automated 0.0 per 100 WBC Normal 0.0 [facility] Comment on above: Performed By: #### C P, TSH, FT4, CDP, LIPRF #### [address] [address]54 Platelet mean volume Entitic volume (Bld) 9.4 fL Normal 8.1-13.5 [facility] Comment on above: Performed By: #### C P, TSH, FT4, CDP, LIPRF #### [address] [address] Platelets #/vol (Bld) 374 10*3/uL Normal 138-453 [facility] Comment on above: Performed By: #### C P, TSH, FT4, CDP, LIPRF #### [address] [address] RBC #/vol (Bld) 4.32 10*6/uL Normal 3.95-5.11 [facility] Comment on above: Performed By: #### C P, TSH, FT4, CDP, LIPRF #### [address] [address] WBC #/vol (Bld) 8.8 10*3/uL Normal 3.5-11.3 [facility] Comment on above: Performed By: #### C P, TSH, FT4, CDP, LIPRF #### [address] [address]672 Auto Diff Performed NOT REPORTED Normal [facility] Comment on above: Performed By: #### C P, TSH, FT4, CDP, LIPRF #### [address] [address]68 Platelets #/vol (Bld) NOT REPORTED Normal [facility] Comment on above: Performed By: #### C P, TSH, FT4, CDP, LIPRF #### [address] [address] RBC morphology finding Nom (Bld) NOT REPORTED Normal [facility] Comment on above: Performed By: #### C P, TSH, FT4, CDP, LIPRF #### [address] [address]993 WBC Morphology NOT REPORTED Normal [facility] Comment on above: Performed By: #### C P, TSH, FT4, CDP, LIPRF #### [address] [address] Comp Metabolic Profon 2017 (cont.) Normal [facility] Comment on above: Result Comment: Aver age GFR for 30-39 years old: 107 mL/min/1.73sq m Chronic Kidney Disease: <60 mL/min/1.73sq m Kidney failure: <15 mL/min/1.73sq m eGFR calculated using average adult body mass. Additional eGFR calculator available at: http://www.[employer]/multiple_crcl_2012.htm Performed By: #### C P, TSH, FT4, CDP, LIPRF #### [address] [address] Albumin mass conc 4.3 g/dL Normal 3.5-5.2 [facility] Comment on above: Performed By: #### C P, TSH, FT4, CDP, LIPRF #### [address] [address] Albumin/Globulin mass ratio 1.5 {ratio} Normal 1.0-2.5 [facility] Comment on above: Performed By: #### C P, TSH, FT4, CDP, LIPRF #### [address] [address] Alkaline Phos 64 U/L Normal 35-104 [facility] Comment on above: Performed By: #### C P, TSH, FT4, CDP, LIPRF #### [address] [address] ALT enzyme act/vol 19 U/L Normal 5-33 [facility] Comment on above: Performed By: #### C P, TSH, FT4, CDP, LIPRF #### [address] [address] Anion gap molar conc 10 mmol/L Normal 9-17 [facility] Comment on above: Performed By: #### C P, TSH, FT4, CDP, LIPRF #### [address] [address] AST enzyme act/vol 15 U/L Normal <32 [facility] Comment on above: Performed By: #### C P, TSH, FT4, CDP, LIPRF #### [address] [address] Bilirubin Ql (U) 0.26 mg/dL Low 0.3-1.2 [facility] Comment on above: Performed By: #### C P, TSH, FT4, CDP, LIPRF #### [address] [address] Calcium mass conc 9.4 mg/dL Normal 8.6-10.4 [facility] Comment on above: Performed By: #### C P, TSH, FT4, CDP, LIPRF #### [address] [address] Chloride molar conc 105 mmol/L Normal 98-107 [facility] Comment on above: Performed By: #### C P, TSH, FT4, CDP, LIPRF #### [address] [address] CO2 molar conc 25 mmol/L Normal 20-31 [facility] Comment on above: Performed By: #### C P, TSH, FT4, CDP, LIPRF #### [address] [address] Creatinine mass conc 0.79 mg/dL Normal 0.50-0.90 [facility] Comment on above: Performed By: #### C P, TSH, FT4, CDP, LIPRF #### [address] [address] GFR, Amer >60 Normal >60 [facility] Comment on above: Performed By: #### C P, TSH, FT4, CDP, LIPRF #### [address] [address] GFR,non Amer >60 Normal >60 [facility] Comment on above: Performed By: #### C P, TSH, FT4, CDP, LIPRF #### [facility] [employer] [address] [place] [address] 63816 Glucose mass conc 87 mg/dL Normal 70-99 [facility] Comment on above: Performed By: #### C P, TSH, FT4, CDP, LIPRF #### [facility] [employer] [address] [place] [address] 98756 Potassium molar conc 4.4 mmol/L Normal 3.7-5.3 [facility] Comment on above: Performed By: #### C P, TSH, FT4, CDP, LIPRF #### [facility] [employer] [address] [place] [address] 34523 Protein mass conc 7.1 g/dL Normal 6.4-8.3 [facility] Comment on above: Performed By: #### C P, TSH, FT4, CDP, LIPRF #### [facility] [employer] [address] [place] [address] 16641 Sodium molar conc 140 mmol/L Normal 135-144 [facility] Comment on above: Performed By: #### C P, TSH, FT4, CDP, LIPRF #### [address] [address] Urea nitrogen mass conc 13 mg/dL Normal 6-20 [facility] Comment on above: Performed By: #### C P, TSH, FT4, CDP, LIPRF #### [facility] [employer] [address] [place] [address] 49745 BUN/CRE Ratio NOT REPORTED Normal -20 [facility] Comment on above: Performed By: #### C P, TSH, FT4, CDP, LIPRF #### [address] [address] Staging: NOT REPORTED Normal [facility] Comment on above: Performed By: #### C P, TSH, FT4, CDP, LIPRF #### [address] [address] Lipid Prof, Fastingon 2017 Cholesterol in HDL mass conc 56 mg/dL Normal >40 [facility] Comment on above: Result Comment: HDL Guidelines: <40 Undesirable 40-59 Borderline >59 Desirable Performed By: #### C P, TSH, FT4, CDP, LIPRF #### [address] [address] Cholesterol in LDL mass conc 107 mg/dL Normal 0-130 [facility] Comment on above: Result Comment: LDL Guidelines: <100 Desirable 100-129 Near to/above Desirable 130-159 Borderline >159 Undesirable Direct (measured) LDL and calculated LDL are not interchangeable tests. Performed By: #### C P, TSH, FT4, CDP, LIPRF #### [address] [address] Cholesterol mass conc 179 mg/dL Normal <200 [facility] Comment on above: Result Comment: Cholesterol Guidelines: <200 Desirable 200-240 Borderline >240 Undesirable Performed By: #### C P, TSH, FT4, CDP, LIPRF #### [address] [address] Cholesterol.total/Cho lesterol in HDL mass ratio 3.2 {ratio} Normal <5 [facility] Comment on above: Performed By: #### C P, TSH, FT4, CDP, LIPRF #### [address] [address] Triglyceride,Fasting 82 mg/dL Normal <150 [facility] Comment on above: Result Comment: Triglyceride Guidelines: <150 Desirable 150-199 Borderline 200-499 High >499 Very high Based on AHA Guidelines for fasting triglyceride, November 2011. Performed By: #### C P, TSH, FT4, CDP, LIPRF #### [address] [address] Cholesterol in VLDL mass conc NOT REPORTED Normal 03-07 [facility] Comment on above: Performed By: #### C P, TSH, FT4, CDP, LIPRF #### [address] [address] Thyroid Stim. Horm.on 2017 Thyrotropin Qn 1.71 m[IU]/L Normal 0.30-5.00 [facility] Comment on above: Performed By: #### C P, TSH, FT4, CDP, LIPRF #### [address] [address] Thyroxine, Freeon 12-06-2017 Thyroxine, Free 1.06 ng/dL Normal 0.93-1.70 [facility] Comment on above: Performed By: #### C P, TSH, FT4, CDP, LIPRF #### [address] [address] Cult,Urineon 08-09-2017 Cult,Urine Specimen Description .CLEAN CATCH URINE Special Requests NOT REPORTED Culture ESCHERICHIA COLI >[id number] CFU/ML Report Status FINAL 08/08/2017 SUSCEPTIBILITY Organism [...] >=320 RESISTANT Piperacillin/Tazobac richards <=4 SUSCEPTIBLE Normal [facility] Comment on above: Performed By: #### U RC #### [address] [address] Urinalysis w/ Microon 2017 ----- Normal [facility] Comment on above: Performed By: #### U AMIC #### [address] [address] Acetoacetic Acid,Ur Negative Normal NEG [facility] Comment on above: Performed By: #### U AMIC #### [address] [address] Bacteria LM.HPF #/area (Urine sed) MANY Abnormal NONE [facility] Comment on above: Performed By: #### U AMIC #### [address] [address] Bilirubin, SemiQt,Ur Negative Normal NEG [facility] Comment on above: Performed By: #### U AMIC #### [address] [address] Casts LM.LPF #/area (Urine sed) 0 TO 2 HYALINE Normal 0-8 [facility] Comment on above: Result Comment: Refe rence range defined for non-centrifuged specimen. Performed By: #### U AMIC #### [address] [address] Color Nom (U) YELLOW Normal YEL [facility] Comment on above: Performed By: #### U AMIC #### [address] [address] Epithelial cells LM.HPF #/area (Urine sed) 2 TO 5 Normal 0-5 [facility] Comment on above: Performed By: #### U AMIC #### [address] [address] Glucose,Semi-qnt,Ur Negative Normal NEG [facility] Comment on above: Performed By: #### U AMIC #### [address] [place] [address] Hemoglobin, Ur TRACE Abnormal NEG [facility] Comment on above: Performed By: #### U AMIC #### [address] [address] Leuckocyte Esterase LARGE Abnormal NEG [facility] Comment on above: Performed By: #### U AMIC #### [address] [address] Nitrite,Ur Negative Normal NEG [facility] Comment on above: Performed By: #### U AMIC #### [address] [address] PH,Ur 5.5 Normal 5.0-8.0 [facility] Comment on above: Performed By: #### U AMIC #### [address] [address] Protein mass conc (U) TRACE Abnormal NEG [facility] Comment on above: Performed By: #### U AMIC #### [address] [address] RBC #/vol (U) 5 TO 10 Normal 0-4 [facility] [facility] Comment on above: Result Comment: Refe rence range defined for non-centrifuged specimen. Performed By: #### U AMIC #### [address] [address] Spec. G[place],Ur 1.017 Normal 1.005-1.030 [facility] Comment on above: Performed By: #### U AMIC #### [address] [address] Turbidity CLOUDY Abnormal CLEAR [facility] Comment on above: Performed By: #### U AMIC #### [address] [address] Urobilinogen,Ur Normal Normal NORM [facility] Comment on above: Performed By: #### U AMIC #### [address] [address] WBC #/vol (U) TOO NUMEROUS TO COUNT Normal 0-5 [facility] Comment on above: Performed By: #### U AMIC #### [address] [address] Amorphous sediment LM Ql (Urine sed) NOT REPORTED Normal NONE [facility] Comment on above: Performed By: #### U AMIC #### [address] [address] Crystals LM Nom (Urine sed) NOT REPORTED Normal NONE [facility] Comment on above: Performed By: #### U AMIC #### [address] [address] Epithelial, Renal NOT REPORTED Normal 0 [facility] Comment on above: Performed By: #### U AMIC #### [address] [address] Mucus Strands NOT REPORTED Normal NONE [facility] Comment on above: Performed By: #### U AMIC #### [facility] [address] [place] [address] Other Observations NOT REPORTED Normal NREQ [facility] Comment on above: Performed By: #### U AMIC #### [facility] [address] [place] [address] Trichomonas NOT REPORTED Normal NONE [facility] Comment on above: Performed By: #### U AMIC #### [facility] [address] [place] [address] Yeast LM Ql (Urine sed) NOT REPORTED Normal [facility] Comment on above: Performed By: #### U AMIC #### [facility] [address] [place] [address] Cult,Urineon 08-04-2017 Cult,Urine Specimen Description .URINE Special Requests NOT REPORTED Culture ESCHERICHIA COLI >[id number] CFU/ML Report Status FINAL 08/04/2017 SUSCEPTIBILITY Organism [...] >=320 RESISTANT Piperacillin/Tazobac richards <=4 SUSCEPTIBLE Normal [facility] Comment on above: Performed By: #### U RC #### [facility] [address] [place] [address] UA w/Reflex Cultureon 2017 Acetoacetic Acid,Ur TRACE Abnormal NEG [facility] Comment on above: Performed By: #### MAO MASTERS #### [facility] [address] [place] [address] Bilirubin.direct mass conc Negative Normal NEG [facility] Comment on above: Performed By: #### U AXMAO #### [facility] [address] [place] [address] Color Nom (U) YELLOW Normal YEL [facility] Comment on above: Performed By: #### U AXMAO #### [facility] [address] [place] [address] Glucose mass conc Negative Normal NEG [facility] Comment on above: Performed By: #### U AXMAO #### [employer] [address] [place] [address] Hemoglobin mass conc (Bld) TRACE Abnormal NEG [facility] Comment on above: Performed By: #### MAO MASTERS #### [facility] [address] [place] [address] Leuckocyte Esterase MODERATE Abnormal NEG [facility] Comment on above: Performed By: #### MAO MASTERS #### [facility] [address] [place] [address] Nitrite,Ur Negative Normal NEG [facility] Comment on above: Performed By: #### MAO MASTERS #### [facility] [address] [place] [address] PH,Ur 5.0 Normal 5.0-8.0 [facility] Comment on above: Performed By: #### MAO MASTERS #### [facility] [address] [place] [address] Protein mass conc TRACE Abnormal NEG [facility] Comment on above: Performed By: #### MAO MASTERS #### [facility] [address] [place] [address] Spec. Gerton,Ur 1.024 Normal 1.005-1.030 [facility] Comment on above: Performed By: #### MAO MASTERS #### [facility] [address] [place] [address] Turbidity CLOUDY Abnormal CLEAR [facility] Comment on above: Performed By: #### MAO MASTERS #### [facility] [address] [place] [address] Urobilinogen,Ur Normal Normal NORM [facility] Comment on above: Performed By: #### MAO MASTERS #### [facility] [address] [place] [address] Comment NOT REPORTED Normal [facility] Comment on above: Performed By: #### U AXMAO #### [facility] [address] [place] [address] Urinalysis,Microon 8 ----- Normal [facility] Comment on above: Performed By: #### U AXMAO #### [facility] [address] [place] [address] Bacteria LM.HPF #/area (Urine sed) MANY Abnormal NONE [facility] Comment on above: Performed By: #### U AXMAO #### [facility] [address] [place] [address] Casts LM.LPF #/area (Urine sed) 10 TO 20 HYALINE Normal 0-8 [facility] Comment on above: Result Comment: Refe rence range defined for non-centrifuged specimen. Performed By: #### U AXMAO #### [facility] [address] [place] [address] Epithelial cells LM.HPF #/area (Urine sed) 2 TO 5 Normal 0-5 [facility] Comment on above: Performed By: #### U AXMAO #### [facility] [address] [place] [address] RBC #/vol (U) 10 TO 20 Normal 0-4 [facility] Comment on above: Result Comment: Refe rence range defined for non-centrifuged specimen. Performed By: #### U AXMAO #### [facility] [address] [place] [address] WBC #/vol (U) TOO NUMEROUS TO COUNT Normal 0-5 [facility] Comment on above: Performed By: #### U AXMAO #### [facility] [address] [place] [address] Amorphous sediment LM Ql (Urine sed) NOT REPORTED Normal NONE [facility] Comment on above: Performed By: #### U AXMAO #### [facility] [address] [place] [address] Crystals LM Nom (Urine sed) NOT REPORTED Normal NONE [facility] Comment on above: Performed By: #### U AXMAO #### [facility] [address] [place] [address] Epithelial, Renal NOT REPORTED Normal 0 [facility] Comment on above: Performed By: #### U AXMAO #### [facility] [address] [place] [address] Mucus Strands NOT REPORTED Normal NONE [facility] Comment on above: Performed By: #### U AXMAO #### [facility] [address] [place] [address] Other Observations NOT REPORTED Normal NREQ [facility] Comment on above: Performed By: #### U AXMAO #### [facility] [address] [place] [address] Trichomonas NOT REPORTED Normal NONE [facility] Comment on above: Performed By: #### U AXMAO #### [facility] [address] [place] [address] Yeast LM Ql (Urine sed) NOT REPORTED Normal NONE [facility] Comment on above: Performed By: #### U AXMAO #### [facility] [address] [place] [address] Encounters Encounter Date Encounter Type Care Provider Facility Start: 08-12-2024 ambulatory Jaylen Mac acility:[facility] Start: 07-29-2024 End: 07-29-2024 Emergency department patient visit Alishalucienjeovanny Barton [facility] Start: 07-26-2024 End: 07-27-2024 Emergency department patient visit Nirmala Moser [facility] Start: 08-13-2021 End: 08-14-[address] DOCTOR REYNAGA Facility:[facility] Start: 10-14-2020 End: 10-15-2020 ambulatory ARLENE GARRETT Facility:[facility] Start: 09-03-2020 End: 09-04-2020 ambulatory [facility] Start: 09-03-2020 End: 09-03-2020 [facility] Start: 11-29-2019 End: 11-30-2019 ambulatory [facility] Start: 11-29-2019 End: 11-29-2019 Subsequent hospital visit by physician [facility] Start: 11-15-2019 End: 11-16-2019 ambulatory [facility]ANNING [facility] Start: 11-15-2019 End: 11-15-2019 Subsequent hospital visit by physician [facility] Start: 11-14-2019 End: 11-15-2019 ambulatory CHANNING [facility] Start: 11-14-2019 End: 11-14-2019 Subsequent [facility] Start: 12-30-2018 End: 01-02-2019 Evaluation and management of inpatient IRISH WOODSON Facility:[facility] Start: 06-10-2018 End: 06-11-2018 Emergency department patient visit JOSÉU HECTOR [facility] Start: 06-08-2018 End: 06-08-2018 Emergency department patient visit TIMBO GOODWIN [facility] Start: 06-04-2018 End: 06-04-2018 Emergency department patient visit BALJEET LIVINGSTON [facility] Start: 03-21-2018 End: 03-21-2018 Emergency department patient visit ERVIN MARTINEZ [facility] Start: 12-06-2017 End: 12-07-2017 Patient encounter procedure KI PALAFOX [facility] Start: 08-07-2017 End: 08-07-2017 Emergency department patient visit ERVIN MARTINEZ [facility] Start: 08-03-2017 End: 08-03-2017 Emergency department patient visit ERVIN MARTINEZ [facility] Procedures Date Procedure Procedure Detail Performing Clinician Start: 09-03-2020 Antibody hiv-1&hiv-2 single result 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 Phone: Start: 09-03-2020 Comprehensive metabo lic panel 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 Phone: Start: 11-15-2019 Antibody hiv-1&hiv-2 single [...] 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 CHANNING YIN Start: 06-10-2018 Ct abdomen & [...] 08-03-2017 URINE RT [facility] Tonsillectomy & adenoidectomy age 11/> Astrit Shanti Plan of Treatment Date Care Activity Detail Author Start: 10-07-2020 Influenza vaccination Flu vaccine (# 1) [facility] [employer] Phone: Start: 10-08-2019 Influenza vaccination Flu vaccine (# 1) [place], [place] Start: 2005 Screening for malign ant neoplasm of cervix Cervical cancer screen [place], [place] Start: 06-22-2003 DTaP/Tdap/Td vaccine (1 - Tdap) DTaP/Tdap/Td vaccine (1 - Tdap) [place] Start: 06-22-1999 HIV screening HIV screen [place], [place] Start: 1996 COVID-19 Vaccine (1) COVID-19 Vaccin e (1) [facility] [employer] Phone: Start: 1990 Pneumococcal 0-64 ye ars Vaccine (1 of 1 - PPSV23) Pneumococcal 0-64 years Vaccine (1 of 1 - PPSV23) [place], [place] Start: 1990 Pneumococcal 0-64 ye ars Vaccine (1 of 2 - PPSV23) Pneumococcal 0-64 years Vaccine (1 of 2 - PPSV23) [facility] [employer] Phone: Start: 1985 Varicella vaccine (1 of 2 - 2-dose childhood series) Varicella vaccine (1 of 2 - 2-dose childhood series) [place] End: 11-15-2019 Hepatitis C RNA, quantitative, PCR Hepatitis C RNA, quantitative, PCR Lab Routine Once for 1 Occurrences starting 11/15/2019 until 11/15/2019 [place], [place] Comment on above: Once for 1 Occurrenc es starting 11/15/2019 until 11/15/2019 Hepatitis C RNA, quantitative, PCR Hepatitis C RNA, quantitative, PCR Lab Routine 11/15/2019 4:51 AM EDT [place], [place] Payers Date Payer Category Payer Private Health Insurance [id number] 2024 Unknown [id number] 2022 Self-pay 1984 Unknown [id number] 2.16.8 [id number] 1984 Unknown [id number] 2.16.8 40.1.702101.3.579.2.175 1984 Unknown [id number] 2.16.8 40.1.389679.3.579.2.175 1984 Unknown [id number] 2.16.8 40.1.764383.3.579.2.175 1984 Unknown [id number] 2.16.8 40.1.691633.3.579.2.175 1984 Unknown [id number] 2.16.8 40.1.282106.3.579.2.175 1984 Unknown [id number] 2.16.8 40.1.412048.3.579.2.175 1984 Unknown [id number] 2.16.8 40.1.357686.3.579.2.647 1984 Unknown [id number] 2.16.8 40.1.803085.3.579.2.173 1984 Unknown [id number] 2.16.8 40.1.595714.3.579.2.173 1984 Unknown [id number] 2.16.8 40.1.542350.3.579.2.173 1984 Unknown [id number] 2.16.8 40.1.637616.3.579.2.173 1984 Unknown [id number] 2.16.84 0.1.038453.3.579.2.593 1984 Unknown [id number] 2.16.84 0.1.604161.3.579.2.593 1984 Unknown [id number] 2.16.8 40.1.721845.3.579.2.727 1984 Unknown [id number] 2.16.8 40.1.165651.3.579.2.727 1984 Unknown [id number] 2.16.8 40.1.914921.3.579.2.727 1959 Unknown [id number] Unknown [id number] 2.16.8 40.1.178765.3.579.2.531 Social History Date Type Detail Facility Start: 06-10-2018 [facility] [place] History of tobacco use Cigarette Smoker [place] Start: 06-10-2018 Cigarettes smoked current (pack per day) - Reported [place] Start: 06-10-2018 Tobacco use and exposure Never used [place] Start: 06-10-2018 Alcohol intake 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 Medicines Take lhlt-rdm-gpywdxp and prescription medicines only as told by [...] provider. Document Revised: 09/27/2021 Document Reviewed: 09/27/2021 [employer] Patient Education 2023 [employer] 07/29/2024 21:43:40 Cellulitis, Adult, Ukou-sp-Weaq Cellulitis, Adult Cellulitis is a skin infection. [...] Follow these instructions at home: Medicines Take fhzb-tyb-nytgraz and prescription medicines only as told by [...] provider. Document Revised: 09/20/2022 Document Reviewed: 09/20/2022 Lorena [employer] Patient Education 2023 [employer]. Follow Up Care 07/29/2024 19:21:34 With:Irma Morales Address: [place] [place] [address]- Business (1) When:08/01/2024 21:22:04 Comments:Stop the Bactrim and stop applying Neosporin to the area. Start the doxycycline tomorrow twice a day and to complete the course. If symptoms worsen please return to the ED as I believe you would need IV antibiotics at that point. With:XXXX NONE Address: [place] When:Within 3 Day(s) [facility] Clinical Note 07-29-2024 Note Date & [...] these instructions at home: Medicines ??? Take lvfh-gfr-zsrqbri and prescription medicines only as told by [...] provider. Document Revised: 09/20/2022 Document Reviewed: 09/20/2022 [employer]orena [employer] Patient Education ? 2023 [employer]. Nephrology Peripheral Edema Peripheral edema is swelling [...] sit or sta (more content not included)... [facility] Evaluation + Plan note 07-29-2024 Note Date & Type Note Facility 07-29-2024 Evaluation + Plan note Extrac mauro from: Title:ED Note Author:Oralia Alishachad Hall Date :07/29/24 Cellulitis of leg (L03.119: Cellulitis of unspecified part of limb) Peripheral edema (R60.0: Localized edema) Orders: doxycycline, 100 mg = 1 tab(s), Oral, q12hr, X 10 day(s), # 20 tab(s), Refills(s) 0, Pharmacy: [facility]/pharmacy #[id number], 165, cm, 07/29/24 19:32:00 EDT, Height/Length [...] Tube US Lower Extremity Venous Duplex Bilateral [facility] Hospital Discharge instructions 07-27-2024 Note Date [...] Follow these instructions at home: Medicines Take yybz-grb-mkrqdxe and prescription medicines only as told by [...] provider. Document Revised: 09/27/2021 Document Reviewed: 09/27/2021 Lorena [employer] Patient Education 2023 [employer]. 07/27/2024 00:18:00 Cellulitis, Adult Cellulitis, Adult Cellulitis [...] Follow these instructions at home: Medicines Take gmld-lse-zoxgucx and prescription medicines only as told by [...] provider. Document Revised: 09/20/2022 Document Reviewed: 09/20/2022 [employer] Patient Education 2023 [employer]. Follow Up Care 07/26/2024 22:36:52 With:Ajith Link Address: [address] [address]- Business (1) When:07/29/2024 [facility] Clinical Note 07-27-2024 Note Date & [...] these instructions at home: Medicines ??? Take kmby-bgm-ymzpawv and prescription medicines only as told by [...] provider. Document Revised: 09/20/2022 Document Reviewed: 09/20/2022 Lorena Gaxiola Patient Education ? 2023 [employer]. Obstetrics and Gynecology Edema Edema is an abnormal buildup of fluids in the body tissues and under the skin. Swelling of the legs, feet, and ankles is a common symptom that becomes more likely as you get older. Swelling is also common in looser tissues, such as around the eyes. Pressing on the area may giancarlo (more content not included)... [facility] Evaluation + Plan note 07-26-2024 Note [...] EDT, STAT, Start date 07/26/24 23:28:00 EDT [facility] Clinical Note 10-15-2020 Note Date & [...] AJITH DE LA GARZA Date: 2020-10-15 00:07 [facility] course Narrative Note Date & Type Note Facility Hospital course Narrative No data available for this section [facility] Progress note Note Date & Type Note Facility Progress note No data available for this section [facility] Summary Purpose Family History No Family [...] FoundDocuments on File Type Date Recorded 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 Name: Morris Duran Admitted: 12/30/2018 Discharged: [...] use, chronic low back pain, admitted to [facility], who was transferred from [facility] secondary to low back pain for last 2 weeks. She had abdominal and pelvis CT done, it was unremarkable except left ovarian cyst. Psychiatry was consulted secondary to hallucinations. The patient was using IV methamphetamine due t (more content not included)... Additional Source Comments INFORMATION SOURCE (unrecogn ized section and content) DATE CREATED AUTHOR 06/27/2018 [facility] DATE CREATED AUTHOR AUTHOR'S ORGANIZ ATION 02/16/2019 [facility] DATE CREATED AUTHOR AUTHOR'S ORGANIZ ATION 09/04/2020 [facility] DATE CREATED AUTHOR AUTHOR'S ORGANIZ ATION [facility]/24/2021 [facility] DATE CREATED AUTHOR AUTHOR'S ORGANIZ ATION 07/31/2024 Perrin Denali [facility] DATE CREATED AUTHOR AUTHOR'S ORGANIZ ATION 08/01/2024 [facility] DATE CREATED AUTHOR AUTHOR'S ORGANIZ ATION 08/16/2024 [facility] ysician Group FOR RECORDS PERTAINING TO [...] BE BASED ON THE PRIMARY CLINICAL RECORDS. [facility] [employer] [facility]. provides no warranty or guarantee of the accuracy or completeness of information in this document.
== END 2024-09-26 14:56 | disposition home or self-care (01) ==
LOC: RAD 14:56
PROVIDERS: PCP Family Medicine; Visit Provider Family Medicine
DX: M25.551 Pain in right hip (principal); M16.11 Unilateral primary osteoarthritis, right hip
CPT/HCPCS: 73502

== ENCOUNTER 2024-10-17 15:38 | Outpatient (OUT) | payer BC, SELFPAY ==
--- OUTSIDE RECORDS SUMMARY | 2024-09-30 12:15 | XMS_ITS ---
Author Organization [facility] [place] Address [address] [place] [address] Care Team Providers Care Plant Hr Manager Name Role Phone Arthur Constantino Primary Care Provider [phone] REASON FOR VISIT bp check Vital Signs Blood pressure systolic 146 mm Hg 10/01/19 25 Blood pressure diastolic 94 mm Hg 025 Height 65 in 09/30/2024 Encounters Encounter Location Date Provider Diagnosis [facility] [address] [place] [address] 09/30/2024 Arthur Constantino Plan Of Treatment No Information Progress Notes * Lor TANOB:[birth year] (39 yo F)Acc No.[id number]:09/30/2024 BP Check Patient: Katie CANCHOLA [facility] Constant[facility] [place] :1985 A ge:39 Y S ex:Female Date:09/30/2024 Address:[address] [place], [place] [id number] Check In:04:00 PM EST Subjective: * Chief Complaints: * 1 . Bp check. * Active Problem List R03.0 Borderline hypertens ion Modified On:09/26/2024/U Status:confirmed S06.0X9A Concussion Modified On:09/26/2024U Status:confirmed M25.551 Right hip pain Modified On:09/26/2024/U Status:confirmed M16.10 Arthritis of hip Modified On:09/27/2024W/U Status:confirmed * Medical History: Objective: * Vitals: H t: 65 in, BP:146/94mm Hg, Ht-cm: 165.1 cm. Assessment: Plan: * Treatment: * Procedure Codes: 3 080F DIAST BP > OR = 90 MM HG, 3077F SYST BP > OR = 140 MM HG * * Sign off status: Completed Visit Status: A RR (Check-In) true * Provider: Alexander Constantino ([facility])MD Date: 0 09/30/2024 Generated for Jamie lay/[place]/Rosaitting on: 0 10/17/2024 03:43 PM EDT
--- OUTSIDE RECORDS SUMMARY | 2024-10-03 10:30 | XMS_ITS ---
Author Organization [facility] in [place] Address [address] [place] [address] Care Team Providers Care Senior Oracle Developer Name Role Phone Arthur Constantino Primary Care Provider Allergies Allergen (clinical drug ingredient) Drug/Non Drug Allergy documented on EMR Reaction Allergy Type Onset Date Status duloxetine Cymbalta black out Drug Allergy Active cefaclor Cefaclor childhood- legs numb Drug Allergy Active REASON FOR VISIT bp, Right hip issues still ongoing- fell again yesterday, Not sleeping well, stress and anxiety through the roof per patient Medications Medication SIG (Take, Route, Fr equency, Duration) Notes Start Date End Date Status SEROquel 25 MG 1 tablet at bedtime Orally Once a day for 30 day(s) 10/03/2024 Active cloNIDine HCl 0.1 MG 1 tablet Orally bid for 30 days 10/03/2024 Active Meloxicam 15 MG 1 tablet Orally Once a day for 30 days 09/26/2024 Active Ondansetron HCl 4 MG 1 tablet Orally Once a day PRN Active tiZANidine HCl 4 MG 2 tabs Orally qhs for 30 days 09/26/2024 Active Social History Tobacco Use: Social History [...] user Modera te cigarette smoker (10-19 cigs/day) Problems Problem Type SNOMED Code ICD Code Onset Dates Problem Status W/U Status Risk Notes Problem Hypertension (74317213) Hypertension (I10) Active confirmed Vital Signs Blood pressure systolic 138 mm Hg 10/04/19 25 Blood pressure diastolic 96 mm Hg 025 Height 65 in 10/03/2024 Weight 250.4 lbs 10/03/2024 BMI 41.66 kg/m2 10/03/2024 Encounters Encounter Location Date Provider Diagnosis [facility] [address] [place] [address] 10/03/2024 Arthur Hogeoffrey Hypertension I10 and Arthritis of hip M16.10 Assessments Encounter Date Diagnosis (ICD Code) Assessment Notes Treatment Notes Treatment Clinical Notes Section Notes 10/03/2024 Hypertension (ICD-10 - I10) 10/03/2024 Arthritis of hip (ICD-10 - M16.10) Plan Of Treatment Medication Medication Name Sig Start Date Stop Date Notes SEROquel 25 MG 1 tablet at bedtime Orally Once a day for 30 day(s) 10/03/2024 cloNIDine HCl 0.1 MG 1 tablet Orally bid for 30 days 10/03 Pending Test Test Name Order Date XR KNEE RT 3V 10/03/2024 XR LSPINE MIN 4 VIEWS 10/03/2024 XR HIP RT 2 3V W PELVIS 10/03/2024 Progress Notes * Ivis TANBharathiOB:[birth year] (39 yo F)Acc No.[id number]:10/03/2024 Progress Note Patient: Katie CANCHOLA Provider: Alexander Constantino ([facility])MD :1985 A ge:39 Y S ex:Female Date:10/03/2024 Address:[address] [place], [place] [id number] Check In:02:27 PM ESTCheck O ut:03:23 PM EST Subjective: * Chief Complaints: * B pRight hip issues still ongoing- fell again yesterdayNot sleeping well, stress and anxiety through the roof per patient * HPI: G eneral: Injured hip - R hip - just fel like stepped wrong and fell -? - able to gt up with no change in strength anxiety through the roof BP up - likley due to painand anxiety. * ROS: E ENT: hearing changes d enies. v isual changes d enies.?non-healing mouth sores d enies. s wollen glands or neck lumps d enies. h oarseness d enies. s ore throat d enies. d ifficulty swallowing d enies. n ose bleeds d enies. n jayme congestion d enies. e ar ache d enies. e ar discharge?denies. r inging in ears d enies. l ight sensitivity d enies. e ye pain d enies. b lurring d enies. e ye irritation d enies. d ouble vision d enies.?vision loss d enies. G eneral/Constitutional: Sweats: D enies. F atigue d enies. S leep problems d enies. A norexia d enies. M alaise d enies. W eight loss d enies.?Fatigue or Weakness d enies. F ever or Chills d enies. C ardiovascular: Shortness of Breath w/lying flat d enies. L ightheadedness/dizziness d enies. C hest tightness/ heavy pressure d enies. S welling of legs, ankles, or feet d enies. W aking up with shortness of breath d enies. C hest pain denies. P alpitations d enies. W eight gain d enies. R espiratory: Chronic or frequent cough d enies. C oughing up blood?denies. D ifficulty breathing d enies. P roductive cough d enies. S noring?denies. S hortness of breath that awakens from sleep (PND) d enies. C hest pain d enies. S putum production d enies. W heezing d enies. M usculoskeletal: Joint pain d enies. J oint Fluid d enies. B ack pain d enies. K nee pain d enies. N gucci pain d enies. J oint Stiffness d enies. M uscle cramps d enies. W eakness of muscles d enies. A rthritis d enies. M uscle aches d enies. P ain in shoulder(s) d enies. S wollen joints d enies. * Active Problem List R03.0 Borderline hypertens ion Modified On:09/26/2024 Status:confirmed S06.0X9A Concussion Modified On:09/26/2024 Status:confirmed M25.551 Right hip pain Modified On:09/26/2024 Status:confirmed M16.10 Arthritis of hip Modified On:09/27/2024 Status:confirmed I10 Hypertension Modified On:10/03/2024 Status:confirmed * Medical History: * Surgical History: T ONSILLECTOMY,OVER 12 YRS [place] Teeth Extraction * Hospitalization/Major Diagno stic Procedure: D enies Past Hospitalization * Family History: F ather: diagnosed with [...] user M oderate cigarette smoker (10-19 cigs/day) * Medications: T akingMeloxicam 15 MG Tablet 1 tablet Orally Once a day Ondansetron HCl 4 MG Tablet 1 tablet Orally Once a day , Notes to Pharmacist: PRNtiZANidine HCl 4 MG Tablet 2 tabs Orally qhs Medication List reviewed and reconciled with the patientTaking Meloxicam 15 MG Tablet 1 tablet Orally Once a day Taking Ondansetron HCl 4 MG Tablet 1 tablet Orally Once a day , Notes to Pharmacist: PRNTaking tiZANidine HCl 4 MG Tablet 2 tabs Orally qhs Medication List reviewed and reconciled with the patient * Allergies: C efaclor: childhood- legs numb - Allergy - Criticality HighCymbalta: black out - Allergy - Criticality Highno[Allergies Verified] Objective: * Vitals: W t:250.4lbs, Ht: 65 in, BP:138/96mm Hg, BMI:41.66Index, Ht-cm: 165.1 cm, Wt-k.58 kg. * Examination: P hysical Exam: GENERAL: w ell developed, well nourished, in no acute distress. HEAD: n ormocephalic/atraumatic. EYES: p upils equal, round and reactive to light, conjunctivae and sclerae normal. EARS: n o deformity or lesion of external ear, canals and TM appear normal bilaterally, TM's intact, not inflamed with normal light reflex, hearing grossly normal to conversational speech. NOSE: n o deformity, discharge, inflammation, or lesions.? MOUTH: m ucous membranes moist, normal oropharynx and posterior pharynx without lesions or exudates, tongue normal, dentition normal. NECK: n gucci supple, no masses or palpable cervical nodes, trachea midline, thyroid without nodules, masses, tenderness, or enlargement. CHEST: n o chest wall deformity, no chest wall tenderness.? LUNGS: n ormal respiratory effort and clear to auscultation, no wheezes, rales, or rhonchi, good air exchange. CARDIO: r egular rate and rhythm, normal S1 and S2, nor murmur, rub, or gallop. PULSES: n ormal capillary refill. ABDOMEN: s oft, non-distended, non-tender, no masses. MUSCULOSKELETAL: n o deformity or scoliosis noted, normal range of motion, joints normal, no erythema, edema, effusion, or ecchymosis. EXTREMITY: n o clubbing, cyanosis, edema, or deformity with normal ROM in both upper and lower bilateral extremities. NEUROLOGIC: g rossly normal. SKIN: n o rashes, ulcerations, or suspicious lesions. LYMPH NODES: n o cervical adenopathy, nodes normal. MENTAL STATUS: a lert and oriented x3, normal mood and affect. Assessment: * Assessment: 1. H ypertension - I10 (Primary) 2 . A rthritis of hip - M16.10 ? Plan: * Treatment: 2. A rthritis of hip I maging: XR KNEE RT 3V I maging: XR LSPINE MIN 4 VIEWS I maging: XR HIP RT 2 3V W PELVIS * Procedure Codes: * Preventive Medicine: Screenings/Counseling: B [place] ACTION PLAN Above Normal BMI Follow-up D ietary management education, guidance, and counseling * * Sign off status: Completed Visit Status: C HK (Check Out) true * Provider: Alexander Constantino ([facility])MD Date: 0 10/03/2024 Generated for Printi ng/Faxing/eTransmitting on: 0 10/17/2024 03:42 PM EDT History and Physical Notes * HPI (History of Present Illness) Category Sub-Category Detail Notes Category Not es General Injured hip - R hip - just fel like stepped wrong and fell - - able to gt up with no change in strength anxiety through the roof BP up - likley due to painand anxiety Examination Category Sub-Category Detail Notes Category Not es Physical Exam GENERAL: well developed, well nourished, in no acute distress HEAD: normocephalic/atraum atic EYES: pupils equal, round and reactive to light, conjunctivae and sclerae normal EARS: no deformity or lesi on of external ear, canals and TM appear normal bilaterally, TM's intact, not inflamed with normal light reflex, hearing grossly normal to conversational speech NOSE: no deformity, discha rge, inflammation, or lesions MOUTH: mucous membranes [place], normal oropharynx and posterior pharynx without lesions or exudates, tongue normal, dentition normal NECK: neck supple, no mass es or palpable cervical nodes, trachea midline, thyroid without nodules, masses, tenderness, or enlargement CHEST: no chest wall deform ity, no chest wall tenderness LUNGS: normal respiratory e ffort and clear to auscultation, no wheezes, rales, or rhonchi, good air exchange CARDIO: regular rate and rhy thm, normal S1 and S2, nor murmur, rub, or gallop PULSES: normal capillary ref ill ABDOMEN: soft, non-distended, non-tender, no masses RECTAL: MUSCULOSKELETAL: no deformity or scol iosis noted, normal range of motion, joints normal, no erythema, edema, effusion, or ecchymosis EXTREMITY: no clubbing, cyanosi s, edema, or deformity with normal ROM in both upper and lower bilateral extremities NEUROLOGIC: grossly normal SKIN: no rashes, ulceratio ns, or suspicious lesions LYMPH NODES: no cervical adenopat hy, nodes normal MENTAL STATUS: alert and oriented x 3, normal mood and affect
--- OUTSIDE RECORDS SUMMARY | 2024-10-11 09:29 | XMS_ITS ---
Author Organization [facility] in [place] Address [address] [place] [address] Care Team Providers Care Ammonia Box Tender Name Role Phone Arthur Constantino Primary Care Provider [phone] REASON FOR VISIT Clonidine Medications Medication SIG (Take, Route, Fr equency, Duration) Notes Start Date End Date Status cloNIDine HCl 0.1 MG 1 tablet Orally TID for 30 days 10/03/2024 Active Encounters Encounter Location Date Provider Diagnosis [facility] [address] [place] [address] 10/11/2024 Arthur Constantino Hypertension I10 Assessments Encounter Date Diagnosis (ICD Code) Assessment Notes Treatment Notes Treatment Clinical Notes Section Notes 10/11/2024 Hypertension (ICD-10 - I10) Plan Of Treatment Medication Medication Name Sig Start Date Stop Date Notes cloNIDine HCl 0.1 MG 1 tablet Orally TID for 30 days 10/03 Progress Notes * Lor TANOB:[birth year] (39 yo F)Acc No.[id number]:10/11/2024 Patient: Dona YARIOTORO Katie :1985 A ge:39 Y S ex:Female Address:[address] [place] [address], [address] * Refills Refill cloNIDine HCl Tablet, 0.1 MG, Orally, 90 Tablet, 1 tablet, TID, 30 days, Refills=11 * true * Date: Generated for [place]/eTransmitting on: 0 10/17/2024 03:43 PM EDT
--- OUTSIDE RECORDS SUMMARY | 2024-10-17 10:30 | XMS_ITS ---
Author Organization [facility] in [place] Address [address] [place] [address] Care Team Providers Care Correctional Sergeant Name Role Phone Arthur Constantino Primary Care Provider [phone] Allergies Allergen (clinical drug ingredient) Drug/Non Drug Allergy documented on EMR Reaction Allergy Type Onset Date Status duloxetine Cymbalta black out Drug Allergy Active cefaclor Cefaclor childhood- legs numb Drug Allergy Active Results Component Value Reference Range Notes UA DIP NONAUTO WO MICRO (810 02) - IN OFFICE (Not yet reviewed by provider) Interpretation: Performing Lab: Notes/Report: COLOR yellow CLARITY clear GLUCOSE neg BILIRUBIN neg KETONE neg SPECIFIC GRAVITY 1.015 BLOOD neg PH 6.5 PROTEIN neg UROBILINOGEN neg NITRITE neg LEUKOCYTE ESTERASE neg REASON FOR VISIT abd pain, hip pain, right hip pain, abd pain in the middle and goes down to groin area, no pain with urnination, started monday Medications Medication SIG (Take, Route, Frequency, Duration) Notes Start Date End Date Status Meloxicam 15 MG 1 tablet Orally Once a day for 30 days 09/26/2024 Active Ondansetron HCl 4 MG 1 tablet Orally Once a day PRN Active SEROquel 25 MG 1 tablet at bedtime Orally Once a day for 30 day(s) 10/03/2024 Active Pyridium 200 MG 1 tablet after meals Orally Three times a day for 2 days 10/17/2024 Active Ciprofloxacin HCl 500 MG 1 tablet Orally every 12 hrs for 10 days 10/17/2024 Active cloNIDine HCl 0.1 MG 1 tablet Orally TID for 30 days 10/03/2024 Active tiZANidine HCl 4 MG 2 tabs Orally qhs fo r 30 days 09/26/2024 Active Social History Tobacco [...] ast year? No Points 0 Interpretation Negative Vital Signs Blood pressure systolic 142 mm Hg 10/18/19 25 Blood pressure diastolic 92 mm Hg 025 Height 65 in 10/17/2024 Weight 259.0 lbs 10/17/2024 BMI 43.1 kg/m2 10/17/2024 Encounters Encounter Location Date Provider Diagnosis [address] [address] 10/17/2024 Arthur Hoy UTI (urinary tract infection), uncomplicated N39.0 and Dysuria R30.0 Assessments Encounter Date Diagnosis (ICD Code) Assessment Notes Treatment Notes Treatment Clinical Notes Section Notes 10/17/2024 UTI (urinary tract infection), uncomplicated (ICD-10 - N39.0) Drink plenty of water. Avoid drinks like coffee, alcohol and soft frinks, as these can irritate your bladder and aggravate your frequent or urgent need to urinate. Apply a warm heating pad to your abdomen to minimize bladder pressure or discomfort. You have been prescribed antibiotics for a urinary tract infection. Antibiotics may bother your stomach, so try taking them with a light meal (unless instructed otherwise by your pharmacist). It is important to take them until they are finished. You can use [id number] acetaminophen or ibuprofen if needed for pain. You should follow up with your Primary Care Physician or return to clinic if not improving in the next 3-5 days. 10/17/2024 Dysuria (ICD-10 - R30.0) Plan Of Treatment Medication Medication Name Sig Start Date Stop Date Notes Pyridium 200 MG 1 tablet after meals Orally Three times a day for 2 days 10/17/2024 Ciprofloxacin HCl 500 MG 1 tablet Orally every 12 hrs for 10 days 10/17/2024 Treatment Notes Assessment Notes UTI (urinary tract infection ), uncomplicated Drink plenty of water. Avoid drinks like coffee, alcohol and soft frinks, as these can irritate your bladder and aggravate your frequent or urgent need to urinate. Apply a warm heating pad to your abdomen to minimize bladder pressure or discomfort. You have been prescribed antibiotics for a urinary tract infection. Antibiotics may bother your stomach, so try taking them with a light meal (unless instructed otherwise by your pharmacist). It is important to take them until they are finished. You can use [id number]-qcwrqwr acetaminophen or ibuprofen if needed for pain. You should follow up with your Primary Care Physician or return to clinic if not improving in the next 3-5 days. Pending Test Test Name Order Date UA DIP NONAUTO WO MICRO (17229) - IN OFF ICE 10/17/2024 Next Appt Details Follow Up: 3-5 days if no im provement, Reason: Progress Notes * Ivis TANBharathiOB:[birth year] (39 yo F)Acc No.[id number]:10/17/2024 UNLOCKED PROGRESS NOTE Progress Note Patient: Katie CANCHOLA Provider: Alexander Constantino ([facility])MD :1985 A ge:39 Y S ex:Female Date:10/17/2024 Address:[address] [place] [address] Check In:02:28 PM ESTCheck O ut:03:21 PM EST Subjective: * Chief Complaints: * 1 . Abd pain, hip pain. 2. Right hip pain. 3. Abd pain in the middle and goes down to groin area. 4. No pain with urnination. 5. Started monday. * HPI: G eneral: no injuries some inc in stress lower abd and into vaginal area - comes and goes sore al; the tieom but then worse at times. U TI: The patient complains of s ymptoms of UTI. The symptoms have been present for 1 -2 days. The symptoms are m oderate. Symptomatic treatment has included O TC Medication. Associated symptoms include i ncreased urge to urinate, painful urination, pelvic pain. * ROS: G eneral/Constitutional: Malaise d enies. C hills d enies. F ever d enies. S kin: Rash d enies. C ardiovascular: Edema d enies. P alpitations d enies. ? R espiratory: Chest pain d enies. C ough d enies. ? G astrointestinal: Abdominal pain d enies. N ausea d enies. V omiting d enies. G enitourinary: Comments S [facility] for details. S kin: Rash d enies. * Medical History: M edical History Verified. * Surgical History: T ONSILLECTOMY,OVER 12 YRS , [place] Teeth Extraction . * Hospitalization/Major Diagno stic Procedure: D enies Past Hospitalization. * Family History: F ather: diagnosed with Unspecified essential hypertension, Diabetes mellitus without mention of complication, type II or unspecified type, not stated as uncontrolled. M other: diagnosed with Diabetes mellitus without [...] nterpretation N egative * Medications: T aking cloNIDine HCl 0.1 MG Tablet 1 tablet Orally TID , Taking Meloxicam 15 MG Tablet 1 tablet Orally Once a day , Taking Ondansetron HCl 4 MG Tablet 1 tablet Orally Once a day , Notes to Pharmacist: PRN, Taking SEROquel(QUEtiapine Fumarate) 25 MG Tablet 1 tablet at bedtime Orally Once a day , Taking tiZANidine HCl 4 MG Tablet 2 tabs Orally qhs , Medication List reviewed and reconciled with the patient * Allergies: C efaclor: childhood- legs numb - Allergy - Criticality High, Cymbalta: black out - Allergy - Criticality High. Objective: * Vitals: W t:259.0lbs, Ht: 65 in, BP:142/92mm Hg, BMI:43.1Index, Ht-cm: 165.1 cm, Wt-k.48 kg. * Examination: G eneral Examination: GENERAL APPEARANCE: w ell developed, well nourished, in no acute distress. ENT: ear and nose external appearance normal. ENMT: tongue, hard and soft palate and posterior pharynx appear normal. LYMPH NODES: n o axillary, supraclavicular or inguinal adenopathy. LUNGS: c lear to auscultation bilaterally. CARDIO: S 1, S2 normal, no murmurs, rubs, gallops. ABDOMEN: S uprapubic tendnerness. GENITOURINARY: Bladder non-distended, urethra normal.? MUSCULOSKELETAL: full range of motion. SKIN: no rashes, warm and dry. NEUROLOGIC: alert and oriented to time, place, & person. PSYCH: mood/affect full range. Assessment: * Assessment: 1. U TI (urinary tract infection), uncomplicated - N39.0 (Primary) 2 . D ysuria - R30.0 Plan: * Treatment: * Labs: * L ab: UA DIP NONAUTO WO MICRO (94141) - IN OFFICE (Collection Date & Time - 10/17/2024) Value Reference Range C OLOR yellow * C LARITY clear * G LUCOSE neg * B ILIRUBIN neg * K ETONE neg * S PECIFIC GRAVITY 1.015 * B LOOD neg * P H 6.5 * P ROTEIN neg * U ROBILINOGEN neg * N ITRITE neg * L EUKOCYTE ESTERASE neg * Procedure Codes: 8 1000 URINALYSIS, Modifiers: QW , 43429 URINALYSIS WO MICRO * Preventive Medicine: Screenings/Counseling: B [place] ACTION PLAN Above Normal BMI Follow-up D ietary management education, guidance, and counseling T OBACCO ACTION PLAN Patient counselled on the dangers of tobacco use and urged to quit. 0 10/17/2024 . * Follow Up: 3 -5 days if no improvement * * Electronic signature of Arthur Constantino MD, [id number] on 10/17/2024 at 03:42 PM EDT Sign off status: Pending Visit Status: C (Check Out) * Provider: Alexander Constantino ([facility])MD Date: 10/17/2024 Generated for [place]/eTransmitting on: 10/17/2024 03:42 PM EDT History and Physical Notes * HPI (History of Present Illness) Category Sub-Category Detail Notes Category Not es General no injuries some inc in stress lower abd and into vaginal area - comes and goes sore al; the tieom but then worse at times UTI The patient complains of symptoms of UTI The symptoms have been present for 1-2 d ays The symptoms are moderate Symptomatic treatment has included OTC M edication Associated symptoms include increased ur ge to urinate, painful urination, pelvic pain Examination Category Sub-Category Detail Notes Category Not es General Examination GENERAL APPEARANCE: well dev eloped, well nourished, in no acute distress ENT: ear and nose externa l appearance normal CARDIO: S1, S2 normal, no mu rmurs, rubs, gallops LUNGS: clear to auscultatio n bilaterally ABDOMEN: Suprapubic tendnerne ss NEUROLOGIC: alert and oriented t o time, place, & person SKIN: no rashes, warm and dry MUSCULOSKELETAL: full range of motion LYMPH NODES: no axillary, supracl avicular or inguinal adenopathy PSYCH: mood/affect full ran ge ENMT: tongue, hard and sof t palate and posterior pharynx appear normal GENITOURINARY: Bladder non-distende d, urethra normal
--- OUTSIDE RECORDS SUMMARY | 2024-10-17 15:43 | XMS_ITS | Clinical Summary ---
Author Organization [facility] Address [address] [place] [address] Care Team Providers Care Fleet Salesperson Name Role Phone Raphael Hitchcock MD Unavailable [...] Influenza Vaccine (#1) 2024 12/12/2016 Care Teams Fleet Salesperson Relationship Specialty Start Date End Date Raphael Hitchcock MD [address] [facility] [address] [place] [address] PCP - [facility] 05/07/22
--- OUTSIDE RECORDS SUMMARY | 2024-10-17 15:43 | XMS_ITS | Clinical Summary ---
Author Organization [facility] Address [address], [address] [place] [address] Care Team Providers Care Environmental Services Floor Tech Name Role Phone Unavailable Primary Care Provider [...]
--- OUTSIDE RECORDS SUMMARY | 2024-10-17 15:43 | XMS_ITS | Clinical Summary ---
Author Organization [facility] Address [id number] [address] [place] [address] Care Team Providers Care Forest Technician Name Role Phone No Pcp, No Pcp [...] 4:27 PM 08/12/2018 4:35 PM Care Teams Forest Technician Relationship Specialty Start Date End Date No Pcp, [place] [id number] PCP - General Family Medicine 01/15/18
--- OUTSIDE RECORDS SUMMARY | 2024-10-17 15:43 | XMS_ITS | Patient Health Record ---
Author Organization [facility] in [place] Address [address] [place] [address] Care Team Providers Care Certified Medical Technician Name Role Phone Arthur Liz Primary Care Provider Allergies Allergen (clinical drug [...] UROBILINOGEN neg NITRITE neg LEUKOCYTE ESTERASE neg XR hip RT 2V w/ pelvis Reviewed date:09/26/2024 04:47:29 PM Interpretation: Performing Lab: Notes/Report: Source Facility: [place] [address] [facility] [place] [id number] XRay Report Signed Patient: KATIE TAN MR#: [id number] : 1985 Acct:[id number] Age/Sex: 39 / F ADM Date: 09/26/24 Loc: RAD Attending Dr: Marilyn Liz M.D. Ordering Physician: Marilyn Liz M.D. Date of Service: 09/26/24 Procedure(s): XR hip RT 2V w/ pelvis Accession Number(s): [id number] cc: Marilyn Liz M.D. [facility] [place] [id number] Patient Name: KATIE TAN MRN: [id number] date: 1985 Sex: F Assigned Patient Location: RAD Current Patient Location: RAD Accession/Order Number: [id number] Exam Date: 09/26/2024 15:10 Report Date: 09/26/2024 16:13 At the request of: MARILYN LIZ MD Procedure: XR hip RT 2V w/ pelvis 2 views right hip a single view pelvis HISTORY: Fell 2 weeks ago. Right hip pain. Difficulty walking. Extensive right hip ygtw-eu-suzo contact degenerative changes marginal spurring. No articular collapse. No AVN. No acute displaced fracture. XR/XR hip RT 2V w/ pelvis IMPRESSION: Extensive cane-jv-bxrq contact right hip degeneration. No acute displaced fracture. Impression dictated by: Ethan Lazcano M.D. 09/26/2024 4:13 PM Dictation Location: [place] [address] Electronically authenticated by: [id number] Y Date: 09/26/2024 16:13 Dictated By: Ethan Lazcano D.O. Signed By: 09/26/241615 DD/ 12 TD/TT: Education And Training Manager: [place] [address] XRay Report Signed Patient: MELBA TAN MR#: [id number] : 1985 Acct:[id number] Age/Sex: 39 / F ADM Date: 09/26/24 Loc: RAD Attending Dr: Marilyn Liz M.D. Ordering Physician: Marilyn Liz M.D. Date of Service: 09/26/24 Procedure(s): XR hip RT 2V w/ pelvis Accession Number(s): [id number] cc: Marilyn Liz M.D. [place] [id number] Patient Name: KATIE TAN MRN: [id number] date: 1985 Sex: F Assigned Patient Location: RAD Current Patient Location: RAD Accession/Order Numb er: [id number] Exam Date: 09/26/2024 15:10 Report Date: 09/26/2024 16:13 At the request of: MARILYN LIZ MD Procedure: XR hip RT 2V w/ pelvis 2 views right hip a single view pelvis HISTORY: Fell 2 week s ago. Right hip pain. Difficulty walking. Extensive right hip kmfn-pi-mskq contact degenerative changes marginal spurring. No articul ar collapse. No AVN. No acute displaced fracture. X R/XR hip RT 2V w/ pelvis IMPRESSION: Extensiv e niov-hq-dvbo contact right hip degeneration. No acute displaced fracture. Impression dictated by: Ethan Lazcano M.D. 09/26/2024 4:13 PM Dictation Location: [place] [address] Electronically authe nticated by: [id number] Y Date: 09/26/2024 16:13 Dictated By: Ethan Lazcano D.O. Signed By: 09/26/241615 DD/ 12 TD/TT: Education And Training Manager: Reason For Referral No Information Medications Medication SIG (Take, Route, Frequency, Duration) Notes Start Date End Date Status cloNIDine HCl 0.1 MG 1 tablet Orally TID for 30 days 10/03/2024 Active Meloxicam 15 MG 1 tablet Orally Once a day for 30 days 09/26/2024 Active Ondansetron HCl 4 MG 1 tablet Orally Once a day PRN Active SEROquel 25 MG 1 tablet at bedtime Orally Once a day for 30 day(s) 10/03/2024 Active tiZANidine HCl 4 MG 2 tabs Orally qhs fo r 30 days 09/26/2024 Active Pyridium 200 MG 1 tablet after meals Orally Three times a day for 2 days 10/17/2024 Active Ciprofloxacin HCl 500 MG 1 tablet Orally every 12 hrs for 10 days 10/17/2024 Active Social History Tobacco Use: Social History [...] Status W/U Status Risk Notes Problem Hypertension (76344052) Hypertension (I10) Active confirmed Problem Elevated blood pressure reading without diagnosis of hypertension (543644481) Borderline hypertension (R03.0) Active confirmed Problem Arthralgia of the pelvic region and thigh (670910159) Right hip pain (M25.551) Active confirmed Problem 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) Concussion (S06.0X9A) Active confirmed Problem Arthritis of hip (77065946) Arthritis of hip (M16.10) Active confirmed Vital Signs Blood pressure diastolic 92 mm Hg 10/17/2024 Height 65 in 10/17/2024 Blood pressure systolic 142 mm Hg 10/17/2024 Weight 259.0 lbs 10/17/2024 BMI 43.1 kg/m2 10/17/2024 Encounters Encounter Location Date Provider Diagnosis [address] [address] 09/26/2024 Arthur Hoy Right hip pain M25.5 51 and Arthritis of hip M16.[address] [address] 09/30/2024 Arthur Hoy [address] [address] 10/11/2024 Arthur Hoy Hypertension I10 [address] [address] 09/30/2024 Arthur Hoy [address] [address] 10/17/2024 Arthur Hoy UTI (urinary tract infection), uncomplicated N39.0 and Dysuria R30.[address] [address] 09/26/2024 Arthur Hoy Borderline hypertens ion R03.0 ; Concussion S06.0X9A and Right hip pain M25.[address] [place] [address] 10/03/2024 Arthur Hoy Hypertension I10 and Arthritis of hip M16.10 Assessments Encounter Date Diagnosis (ICD Code) Assessment Notes Treatment Notes Treatment Clinical Notes Section Notes 10/03/2024 Hypertension (ICD-10 - I10) 10/03/2024 Arthritis of hip (ICD-10 - M16.10) 10/17/2024 UTI (urinary tract infection), uncomplicated (ICD-10 [...] until they are finished. You can use xbyz-rbd-mumxcpm acetaminophen or ibuprofen if needed for pain. You should follow up with your Primary Care Physician or return to clinic if not improving in the next 3-5 days. 09/26/2024 Borderline hypertension (ICD-10 - R03.0) 09/26/2024 Concussion (ICD-10 - S06.0X9A) 09/26/2024 Right hip pain (ICD-10 - M25.551) 09/26/2024 Arthritis of hip (ICD-10 - M16.10) 10/11/2024 Hypertension (ICD-10 - I10) 09/26/2024 Right hip pain (ICD-10 - M25.551) 10/17/2024 Dysuria (ICD-10 - R30.0) 09/26/2024 Other Recommended to rest and use a heating pad on the area. Take NSAIDs for pain as needed Plan Of Treatment Pending Test Test Name Order Date MRI Hip RT w/o contrast 09/26/2024 UA DIP NONAUTO WO MICRO (68016) - IN OFF ICE 10/17/2024 XR KNEE RT 3V 10/03/2024 XR LSPINE MIN 4 VIEWS 10/03/2024 XR HIP RT 2 3V W PELVIS 10/03/2024 XR HIP RT 2 3V W PELVIS 09/26/2024 Insurance Providers Payer Name Payer Address Payer Phone Subscriber Number Group Number Insured Name Patient Relationship to Insured Coverage Start Date Coverage End Date RASHMI BREWER [address] [place] [address] [id number] Katie Tan Self - patient is the insured Medical (General) History Surgical History Surgery Date(Month/Year) [facility] Teeth Extraction TONSILLECTOMY,OVER 12 YRS
--- NOTE | 2024-10-17 15:45 | XR_ITS ---
The [address] [address] Patient Name: MORRIS TAN MRN: [id number] date: 1985 Sex: F Assigned Patient Location: [facility] Current Patient Location: Accession/Order Number: [id number] Exam Date: 10/17/2024 16:04 Report Date: 10/18/2024 08:20 At the request of: MARILYN LIZ MD Procedure: XR knee RT 3V CLINICAL DATA: Patient fell 2 weeks ago onto right hip. Pain at the groin and difficulty ambulating. LUMBAR SPINE - 4 views COMPARISON: CT 09/12/2024 AP, lateral and both oblique views were obtained. There is subtle dextroscoliotic curvature. Alignment is maintained on the lateral view. There are no lumbar compression fracture. There is still mild wedge deformity at T12. The disc spaces are maintained. There is minor endplate spurring and facet hypertrophy, greater distally. The SI joints are intact and show minor sclerosis. No paraspinal soft tissue abnormalities are seen. XR/XR lumbar spine min 4V IMPRESSION: SUBTLE SCOLIOSIS AND MILD DEGENERATIVE CHANGES. NO ACUTE BONY FINDINGS. RIGHT HIP WITH AP PELVIS - 3 views COMPARISON: 09/26/2024 AP view of the pelvis as well as AP and frog-lateral views of the right hip were obtained. No acute or healing fractures are identified. No dislocation is seen. The left hip joint space is maintained and there is no significant degenerative change. There is redemonstration of loss of the right hip joint space with subchondral sclerosis, cystic change and hypertrophy. The SI joints are intact and show mild sclerosis. No soft tissue abnormalities are present. IMPRESSION: SIMILAR PROMINENT DEGENERATIVE CHANGE AT THE RIGHT HIP. NO ACUTE BONY FINDINGS. RIGHT KNEE - 3 views COMPARISON: None AP, lateral and internal oblique views were obtained. There is no acute fracture or dislocation. The joint spaces are maintained. There is no prominent hypertrophy. No knee effusion or focal soft tissue swelling is seen. IMPRESSION: NO ACUTE BONY INJURY. Impression dictated by: Cary Hugo M.D. 10/18/2024 8:20 AM Dictation Location: [employer] Electronically authenticated by: [id number] Y Date: 10/18/2024 08:20
--- NOTE | 2024-10-17 15:45 | XR_ITS ---
The [address] [address] Patient Name: MORRIS TAN MRN: [id number] date: 1985 Sex: F Assigned Patient Location: [facility] Current Patient Location: Accession/Order Number: [id number] Exam Date: 10/17/2024 16:04 Report Date: 10/18/2024 08:20 At the request of: MARILYN LIZ MD Procedure: XR knee RT 3V CLINICAL DATA: Patient fell 2 weeks ago onto right hip. Pain at the groin and difficulty ambulating. LUMBAR SPINE - 4 views COMPARISON: CT 09/12/2024 AP, lateral and both oblique views were obtained. There is subtle dextroscoliotic curvature. Alignment is maintained on the lateral view. There are no lumbar compression fracture. There is still mild wedge deformity at T12. The disc spaces are maintained. There is minor endplate spurring and facet hypertrophy, greater distally. The SI joints are intact and show minor sclerosis. No paraspinal soft tissue abnormalities are seen. XR/XR hip RT 2V w/ pelvis IMPRESSION: SUBTLE SCOLIOSIS AND MILD DEGENERATIVE CHANGES. NO ACUTE BONY FINDINGS. RIGHT HIP WITH AP PELVIS - 3 views COMPARISON: 09/26/2024 AP view of the pelvis as well as AP and frog-lateral views of the right hip were obtained. No acute or healing fractures are identified. No dislocation is seen. The left hip joint space is maintained and there is no significant degenerative change. There is redemonstration of loss of the right hip joint space with subchondral sclerosis, cystic change and hypertrophy. The SI joints are intact and show mild sclerosis. No soft tissue abnormalities are present. IMPRESSION: SIMILAR PROMINENT DEGENERATIVE CHANGE AT THE RIGHT HIP. NO ACUTE BONY FINDINGS. RIGHT KNEE - 3 views COMPARISON: None AP, lateral and internal oblique views were obtained. There is no acute fracture or dislocation. The joint spaces are maintained. There is no prominent hypertrophy. No knee effusion or focal soft tissue swelling is seen. IMPRESSION: NO ACUTE BONY INJURY. Impression dictated by: Cary Hugo M.D. 10/18/2024 8:20 AM Dictation Location: [facility] Electronically authenticated by: [id number] Y Date: 10/18/2024 08:20
--- NOTE | 2024-10-17 15:45 | XR_ITS ---
The [address] [address] Patient Name: MORRIS TAN MRN: [id number] date: 1985 Sex: F Assigned Patient Location: [facility] Current Patient Location: Accession/Order Number: [id number] Exam Date: 10/17/2024 16:04 Report Date: 10/18/2024 08:20 At the request of: MARILYN LIZ MD Procedure: XR knee RT 3V CLINICAL DATA: Patient fell 2 weeks ago onto right hip. Pain at the groin and difficulty ambulating. LUMBAR SPINE - 4 views COMPARISON: CT 09/12/2024 AP, lateral and both oblique views were obtained. There is subtle dextroscoliotic curvature. Alignment is maintained on the lateral view. There are no lumbar compression fracture. There is still mild wedge deformity at T12. The disc spaces are maintained. There is minor endplate spurring and facet hypertrophy, greater distally. The SI joints are intact and show minor sclerosis. No paraspinal soft tissue abnormalities are seen. XR/XR knee RT 3V IMPRESSION: SUBTLE SCOLIOSIS AND MILD DEGENERATIVE CHANGES. NO ACUTE BONY FINDINGS. RIGHT HIP WITH AP PELVIS - 3 views COMPARISON: 09/26/2024 AP view of the pelvis as well as AP and frog-lateral views of the right hip were obtained. No acute or healing fractures are identified. No dislocation is seen. The left hip joint space is maintained and there is no significant degenerative change. There is redemonstration of loss of the right hip joint space with subchondral sclerosis, cystic change and hypertrophy. The SI joints are intact and show mild sclerosis. No soft tissue abnormalities are present. IMPRESSION: SIMILAR PROMINENT DEGENERATIVE CHANGE AT THE RIGHT HIP. NO ACUTE BONY FINDINGS. RIGHT KNEE - 3 views COMPARISON: None AP, lateral and internal oblique views were obtained. There is no acute fracture or dislocation. The joint spaces are maintained. There is no prominent hypertrophy. No knee effusion or focal soft tissue swelling is seen. IMPRESSION: NO ACUTE BONY INJURY. Impression dictated by: Cary Hugo M.D. 10/18/2024 8:20 AM Dictation Location: [employer] Electronically authenticated by: [id number] Y Date: 10/18/2024 08:20
--- OUTSIDE RECORDS SUMMARY | 2024-10-17 16:57 | XMS_ITS | CCD ---
Author Organization [facility] Inform ion Partnership [facility] Care Team Providers Care Artificial Cherry Maker Name Role Phone PAVLOCK, MAX L Primary [...] (antibiotic) (1 source) Cefaclor Drug Allergy 08-03-2017 [facility] DULoxetine (1 source) DULoxetine Drug Allergy 08-03-2017 [facility] (2 sources) Acetaminophen / HYDROcodone Drug Allergy 11-10-2012 [facility] Repository (3 sources) Cefaclor; Translations: [Ceclor] Drug Allergy 11-10-2012 [facility] Repository (3 sources) DULoxetine; Translations: [Cymbalta] Drug Allergy 11-10-2012 [facility] Repository (5 sources) Cefaclor; Translations: [cefaclor] Drug Allergy 08-03-2017 numbness [place], [place] (3 sources) DULoxetine Drug Allergy 08-03-2017 [place] (2 sources) DULoxetine; Translations: [duloxetine] Drug Allergy [facility] Medications Current Medications Medication [...] day(s), # 20 tab(s), Refills(s) 0, Pharmacy: [facility]/pharmacy #[id number], 165, cm, 07/29/24 19:32:00 EDT, [...] for 7 day(s), 14 tab(s), Refill(s) 0, [facility]/pharmacy #[id number], 162, cm, 07/26/24 22:50:00 EDT, Height/Length Dosing, [...] 10-17-2018 Chronic Other aftercare (4 sources) Other prison (current) drug therapy; Translations: [OTH DIRECTOR PHYSICAL CURRENT DRUG THERAPY] Onset: 08-13-2021 Episodic Residual [...] DO Transcribed by: SESAR Technologist: LES Lindquist [facility] BMPOrdered By: SYSTEM SYSTEM on 07-29-2024 Anion gap [Moles/Vol] 6 mmol/L Normal 6-16 Rem isol Chem Comment on above: Performed By: #### 2 [id number] #### [facility] [address] [place] [address] Calcium [Mass/Vol] 8.9 mg/dL Normal 8.9-11.1 Remiso l Chem Comment on above: Performed By: #### 2 [id number] #### [facility] [address] [place] [address] Chloride [Moles/Vol] 104 mmol/L Normal 101-111 Sherman angelika Chem Comment on above: Performed By: #### 2 [id number] #### [facility] [address] [place] [address] CO2 [Moles/Vol] 31 mmol/L Normal 21-31 Remisol C hem Comment on above: Performed By: #### 2 [id number] #### [place] [facility] [address] [place] [address] Creatinine [Mass/Vol] 0.7 mg/dL Normal 0.5-1.3 Rem isol Chem Comment on above: Performed By: #### 2 [id number] #### [facility] [place] [facility] [address] [place] [address] Glucose [Mass/Vol] 108 mg/dL Normal 55-199 Remiso l Chem Comment on above: Performed By: #### 2 [id number] #### [facility] [address] [place] [address] Potassium [Moles/Vol] 4.3 mmol/L Normal 3.5-5.3 Rem isol Chem Comment on above: Performed By: #### 2 [id number] #### [facility] [address] [place] [address] Sodium [Moles/Vol] 137 mmol/L Normal 135-145 Remiso l Chem Comment on above: Performed By: #### 2 [id number] #### [facility] [address] [place] [address] Urea nitrogen [Mass/Vol] 12 mg/dL Normal 5-21 Remisol Chem Comment on above: Performed By: #### 2 154561 #### [facility] [address] [place] [address] BMPon 07-29-2024 BUN/Creat Ratio 17 No Units Normal 10-20 [facility] Comment on above: Performed By: #### 2 [id number] #### [facility] [address] [place] [address] BNPOrdered By: Javan up 07-29-2024 Natriuretic peptide B (Bld) [Mass/Vol] 53 pg/mL Normal 5-80 [facility] HemeManSS Comment on above: Performed By: #### 1 [id number] #### [facility] [address] [place] [address] CBC w/ Auto Diffon 5 Basophil Absolute 0.1 E9/L Normal 0.0-0.2 [facility] Comment on above: Performed By: #### 2 [id number] #### [facility] [address] [place] [address] Eos Absolute 0.6 E9/L High 0.0-0.5 [facility] Comment on above: Performed By: #### 2 783114 #### [facility] [address] [place] [address] Lymph Absolute 2.4 E9/L Normal 1.0-4.0 [facility] Comment on above: Performed By: #### 2 [id number] #### [facility] [address] [place] [address] Tate Absolute 0.9 E9/L Normal 0.2-1.0 [facility] Comment on above: Performed By: #### 2 800951 #### [facility] [address] [place] [address] Neutro Absolute 4.5 E9/L Normal 2.0-7.5 [facility] Comment on above: Performed By: #### 2 [id number] #### [facility] [address] [place] [address] Neutro Auto 53.7 % Normal 36.0-75.0 [facility] Comment on above: Performed By: #### 2 674156 #### [facility] [address] [place] [address] Platelet 324.0 E9/L Normal 150.0-500.0 [facility] Comment on above: Performed By: #### 2 685488 #### [facility] [address] [place] [address] RBC 4.6 E12/L Normal 4.3-5.9 [facility] Comment on above: Performed By: #### 2 000550 #### [facility] [address] [place] [address] WBC 8.5 E9/L Normal 4.0-11.0 [facility] Comment on above: Performed By: #### 2 990375 #### [facility] [address] [place] [address] CBC w/ Auto DiffOrdered By: SYSTEM SYSTEM on 07-29-2024 Basophils/100 WBC (Bld) 0.9 % Normal 0.0-2.0 Remisol Heme Comment on above: Performed By: #### 2 [id number] #### [facility] [address] [place] [address] Eosinophils/100 WBC (Bld) 6.6 % Normal 0.0-8.0 [facility] Heme Comment on above: Performed By: #### 2 886912 #### [place] [facility] [address] [place] [address] Erythrocyte distribution width (RBC) [Ratio] 13.4 % Normal 10.9-14.2 Remisol Heme Comment on above: Performed By: #### 2 902405 #### [place] [facility] [address] [place] [address] Hematocrit (Bld) [Volume fraction] 41.6 % Normal 34.0-46.0 [facility] Heme Comment on above: Performed By: #### 2 729485 #### [facility] [address] [place] [address] Hemoglobin (Bld) [Mass/Vol] 14.4 g/dL Normal 12.0-16.0 Rem[facility] Heme Comment on above: Performed By: #### 2 338653 #### [facility] [address] [place] [address] Lymphocytes/100 WBC (Bld) 28.6 % Normal 14.0-50.0 [facility] Hem[facility] Comment on above: Performed By: #### 2 736940 #### [facility] [address] [place] [address] MCH (RBC) [Entitic mass] 31.5 pg Normal 27.0-34.0 Remisol Heme Comment on above: Performed By: #### 2 831648 #### [facility] [address] [place] [address] MCHC (RBC) [Mass/Vol] 34.7 g/dL Normal 31.4-36.0 Rem isol Heme Comment on above: Performed By: #### 2 754642 #### [facility] [address] [place] [address] MCV (RBC) [Entitic vol] 90.7 fL Normal 80.0-100.0 Remisol Heme Comment on above: Performed By: #### 2 163214 #### [facility] [address] [place] [address] Monocytes/100 WBC (Bld) 10.2 % Normal 4.0-14.0 Rem[facility] Heme Comment on above: Performed By: #### 2 055562 #### [facility] [address] [place] [address] Platelet mean volume (Bld) [Entitic vol] 7.2 fL Normal 6.4-10.8 Rem[facility] Heme Comment on above: Performed By: #### 2 141583 #### [facility] [address] [place] [address] CHEMISTRYOrdered By: SYSTEM SYSTEM on 07-29-2024 CRP [Mass/Vol] 0.5 mg/dL Normal <=1.9mg/dL Remisol Ch em GFR/1.73 sq M.predicted MDRD (S/P/Bld) [Vol rate/Area] 112 mL/min/1.73 m2 Normal >=59mL/min/1.7 3 m2 Remisol Chem Urea nitrogen/Creatinine [Mass ratio] 17 mg/mg Normal 10 - 20 Remisol Chem CRPon 07-29-2024 CRP 0.5 mg/dL Normal <=1.9 [facility] Comment on above: Performed By: #### 2 [id number] #### [facility] [address] [place] [address] ED Clinical Summaryon 2024 ED Clinical Summary ED Clinical Summary [address] [address] ED Clinical Summary Person Information Name: MORRIS DURANT[place] Age: 39 Years : 1985 Sex: Female Language: Tunisian PCP: NONE, XXXX Marital Status: Single Phone: [phone] Visit Id: Visit Reason: Lower leg pain-swelling; [...] 07/29/2024 21:43:40 07/29/2024 21:43:40 07/29/2024 21:43:40 ADDRESS: [address] [place] [id number] PHYS DOC NOTES: MEDICAL INFORMATION: Prescriptions Given: New Medications [id number], [address], [place] [id number], [phone] doxycycline (doxycycline hyclate 100 mg Tab) 1 [...] EDUCATION INFORMATION: Instructions: Peripheral Edema; Cellulitis, Adult, Ecly-nh-Lvek Follow up: With: Address: When: Irma Morales [address] [place] [address] Business (1) In 3 days 08/01/2024 [...] DIAGNOSIS: Cellulitis of leg; Peripheral edema Normal [facility] ED Note-Physicianon 07-30-19 ED Note-Physician ED [...] and Complexity of Problems Differential Diagnosis: [] [facility] Data External documents reviewed: [] My [...] day(s), # 20 tab(s), Refills(s) 0, Pharmacy: [facility]/pharmacy #[id number], 165, cm, 07/29/24 19:32:00 EDT, [...] 3 days 08/01/[address] [place] [address]- Business (1) Additional Instructions: Stop the Bactrim and stop applying Neosporin to the area. Start the doxycycline tomorrow twice a day and to complete the course. If symptoms worsen please return to the ED as I believe you would need IV antibiotics at that point. XXXX NONE In 3 days [place] Additional Instructions: Patient Education Peripheral Edema Cellulitis, Adult, Mjvd-ws-Nqbh Problem List/Past Medical History Ongoing ADHD Anxiety Bipolar illness Depression Insomnia Psychiatric disorder Smoker Historical No qualifying data Procedure/Surgical History Tonsillectomy and adenoidectomy; age 11 or over. Medications Inpatient No active inpatient medications (more content not included)... Normal [facility] Comment on above: Result Comment: Elec tronically Signed By: Silvestre Barton DO\.br\Date and Time Signed: 07/29/24 21:31 EDT ED Patient Summaryon 025 ED Patient Summary ED Patient Summary [address] [address] Patient Discharge Instructions Person Information Name: MORRIS DURAN Age: 39 Years Arrival Date: 07/29/2024 19:20:01 Discharge Diagnosis: Cellulitis of leg; Peripheral edema Primary Care Physician: NONE, XXXX Provider Information Primary Provider: Silvestre Barton DO Advanced Manufacturing Engineer Paint:None The exam and treatment you received in the Emergency Department were for an urgent problem and are not intended as complete care. It is important that you follow up with a doctor, nurse practitioner, or physician???s nurse practitioner physicians assistant for ongoing care. If your symptoms [...] Address: When: Irma [place] [place] [address] Business (1) In 3 days 08/01/2024 Comments: Stop the Bactrim and stop applying Neosporin to the area. Start the doxycycline tomorrow twice a day and to complete the course. If symptoms worsen please return to the ED as I believe you would need IV antibiotics at that point. With: Address: When: XXXX [facility] , [place] In 3 days In the event that this physician does not participate in your insurance network, please consult with your insurance company to find a nearby participating provider. Patient Education Materials: Peripheral Edema; Cellulitis, Adult, Gbdd-ve-Ymrf A MESSAGE TO ALL PATIENTS REGARDING OPIOIDS PRESCRIPTION OPIOIDS: WHAT YOU NEED TO KNOW Prescription opioids can be used to help relieve ndhkahor-mg-cviash pain and are often prescribed following a [...] program, or (more content not included)... Normal [facility] Extra Blueon 07-29-2024 Tube Collected Plasma Yes Invalid Interpretation Code [facility] Comment on above: Performed By: #### 1 [id number] #### [facility] [address] [id number] HEMATOLOGYOrdered By: SYSTEM SYSTEM on 07-29-2024 Basophils/Leukocytes [...] 07-29-2024 eGFR 112 mL/min/1.73 m2 Normal >=59 [facility] Comment on above: Performed By: #### 1 [id number] #### [facility] [address] [id number] ED Clinical Summaryon 2024 ED Clinical Summary ED Clinical Summary [address] [address] ED Clinical Summary Person Information Name: MORRIS DURAN [place] Age: 39 Years : 1985 Sex: Female Language: Tunisian PCP: NONE, XXXX Marital Status: Single Phone: [phone] Visit Id: Visit Reason: Leg pain-swelling; Cellulitis [...] 00:17:59 07/27/2024 00:17:59 07/27/2024 00:17:59 [address] [facility] [id number] PHYS DOC NOTES: MEDICAL INFORMATION: Prescriptions Given: New Medications [id number], [address] [place], [place] [id number], [phone] sulfamethoxazole-tri methoprim (Bactrim D.S. 800 mg-160 mg [...] With: Address: When: Ajith Field [address] [id number] Business (1) In 3 days 07/29/2024 DIAGNOSIS: Bilateral leg edema; Cellulitis of right lower leg Normal [facility] ED Note-Physicianon 07-28-19 ED Note-Physician ED [...] In 3 days 07/29/2024 EDT [address] [phone] Business (1) Additional Instructions: Patient Education Edema Cellulitis, Adult Attestation Patient seen and evaluated by the physician nurse practitioner physicians assistant. Attending physician was present in the emergency department and supervised care. This visit was performed by both the physician and an APC. I performed all aspects of the MDM as documented. This report was transcribed using voice recognition software. Every effort was made to ensure accuracy, however, inadvertently computerized rotary peel oven tender mistakes may be present. Appropriate healthcare PPE [...] and ad (more content not included)... Normal [facility] Comment on above: Result Comment: Elec tronically Signed By: Jeffrey Rodríguez PA-C\.br\Date and Time Signed: 07/27/24 00:21 EDT\.br\Electronically Co-Signed By: Nirmala Moser M.D.\.br\Date and Time Co-Signed: 07/27/24 02:10 EDT ED Patient Summaryon 025 ED Patient Summary ED Patient Summary [address] [address] Patient Discharge Instructions Person Information Name: MORRIS DURAN Age: 39 Years Arrival Date: 07/26/2024 22:35:08 Discharge Diagnosis: Bilateral leg edema; Cellulitis of right lower leg Primary Care Physician: NONE, XXXX Provider Information Primary Provider: Nirmala Moser M.D. Advanced Manufacturing Engineer Paint:Jeffrey Rodríguez PA-C The exam and treatment you received in the Emergency Department were for an urgent problem and are not intended as complete care. It is important that you follow up with a doctor, nurse practitioner, or physician???s nurse practitioner physicians assistant for ongoing care. If your symptoms [...] Follow-up Instructions: With: Address: When: Ajith Link [address] [place] [address] Business (1) In 3 days 07/29/2024 In the event that this physician does not participate in your insurance network, please consult with your insurance company to find a nearby participating provider. Patient Education Materials: Edema; Cellulitis, Adult A MESSAGE TO ALL PATIENTS REGARDING OPIOIDS PRESCRIPTION OPIOIDS: WHAT YOU NEED TO KNOW Prescription opioids can be used to help relieve fhtxoojd-cv-zlsvzl pain and are often prescribed following a [...] your heal (more content not included)... Normal [facility] CBC AUTO DIFFon 08-13-2021 BASO # 0.0 103/ul Normal 0.0-0.1 [facility] Comment on above: Performed By: #### C BC #### [facility] [address] [address] [address] Elmer Hopkins Basophils/100 WBC (Bld) 0.5 % Normal 0.2-2.0 [facility] Comment on above: Performed By: #### C BC #### [facility] [address] [address] [address] Elmer Hopkins EO # 0.7 103/ul Normal 0.0-0.7 [facility] Comment on above: Performed By: #### C BC #### [facility] [address] [address] [address] Elmer Hopkins Eosinophils/100 WBC (Bld) 9.4 % Critically high 0.9-7.0 [facility] Comment on above: Performed By: #### C BC #### [facility] [address] [address] [address] Elmer Hopkins Erythrocyte distribution width (RBC) [Ratio] 12.3 % Normal 11.0-15.0 [facility] Comment on above: Performed By: #### C BC #### [facility] [address] [address] [address] Elmer Hopkins Hematocrit (Bld) [Volume fraction] 45.0 % Normal 36.0-48.0 [facility] Comment on above: Performed By: #### C BC #### [facility] [address] [address] [address] Elmer Hopkins Hemoglobin (Bld) [Mass/Vol] 14.8 g/dL Normal 12.0-16.0 [facility] Comment on above: Performed By: #### C BC #### [facility] [address] [place] [address] Dr. Elmer Hopkins IG # 0.03 10e3/ul Normal 0.00-0.03 [facility] Comment on above: Performed By: #### C BC #### [facility] [address] [place] [address] Dr. Elmer Hopkins IG % 0.4 % Normal 0.0-0.5 [facility] Comment on above: Performed By: #### C BC #### [facility] [address] [place] [address] Dr. Elmer Hopkins LYMPH # 3.0 103/ul Normal 1.2-3.8 [facility] Comment on above: Performed By: #### C BC #### [facility] [address] [place] [address] Dr. Elmer Hopkins Lymphocytes/100 WBC (Bld) 37.3 % Normal 20.5-60.0 [facility] Comment on above: Performed By: #### C BC #### [facility] [address] [place] [address] Dr. Elmer Hopkins MANUAL DIFF REQ NO Normal [facility] Comment on above: Performed By: #### C BC #### [facility] [address] [place] [address] Dr. Elmer Hopkins MCH (RBC) [Entitic mass] 31.5 pg Normal 26.7-34.0 [facility] Comment on above: Performed By: #### C BC #### [facility] [address] [place] [address] Dr. Elmer Hopkins MCHC (RBC) [Mass/Vol] 32.9 g/dL Normal 29.9-35.2 [facility] Comment on above: Performed By: #### C BC #### [facility] [address] [place] [address] Dr. Elmer Hopkins MCV (RBC) [Entitic vol] 95.7 fL Normal 81.0-99.0 [facility] Comment on above: Performed By: #### C BC #### [facility] [address] [address] [address] Elmer Hopkins MONO # 0.7 103/ul Normal 0.3-0.8 [facility] Comment on above: Performed By: #### C BC #### [facility] [address] [address] [address] Elmer Hopkins Monocytes/100 WBC (Bld) 9.0 % Normal 1.7-12.0 [facility] Comment on above: Performed By: #### C BC #### [facility] [address] [place] [address] Dr. Elmer Hopkins NEUT # 3.4 103/ul Normal 1.4-6.5 [facility] Comment on above: Performed By: #### C BC #### [facility] [address] [place] [address] Dr. Elmer Hopkins Neutrophils/100 WBC (Bld) 43.4 % Normal 43.0-75.0 [facility] Comment on above: Performed By: #### C BC #### [facility] [address] [place] [address] Dr. Elmer Hopkins Platelet mean volume (Bld) [Entitic vol] 9.4 fL Critically low 9.5-13.5 [facility] Comment on above: Performed By: #### C BC #### [facility] [address] [place] [address] Dr. Elmer Hopkins PLT 329 103/ul Normal 150-450 [facility] Comment on above: Performed By: #### C BC #### [facility] [address] [place] [address] Dr. Elmer Hopkins RBC 4.70 106/ul Normal 4.20-5.40 [facility] Comment on above: Performed By: #### C BC #### [facility] [address] [place] [address] Dr. Elmer Hopkins WBC 7.9 103/ul Normal 4.0-11.0 [facility] Comment on above: Performed By: #### C BC #### [facility] [address] [address] [address] Elmer Hopkins GLYCOHEMOGLOBIN A1Con 2021 ADA RECOMMENDATION SEE BELOW Normal [facility] Comment on above: Result Comment: ADA RECOMMENDED LIMIT 4.0 - 6.0 ADA THERAPEUTIC TARGET < 7.0 ACTION SUGGESTED > 7.0 Performed By: #### A 1C #### [facility] [address] [address] [address] Elmer Hopkins Glucose [Mass/Vol] 105 mg/dL Normal [facility] Comment on above: Performed By: #### A 1C #### [facility] [address] [place] [address] Dr. Elmer Hopkins HbA1c (Bld) [Mass fraction] 5.3 % Normal 4.5-6.2 [facility] Comment on above: Performed By: #### A 1C #### [facility] [address] [place] [address] Dr. Elmer Hopkins LIPID PROFILEon 08-13-2021 CHOL-HDL RATIO NORM SEE BELOW Normal [facility] Comment on above: Result Comment: 3.3 - 4.4 LOW RISK 4.4 - 7.1 AVERAGE RISK 7.1 - 11.0 MODERATE RISK >11.0 HIGH RISK Performed By: #### C MP, TSH, LIPID #### [facility] [address] [place] [address] Dr. Elmer Hopkins Cholesterol [Mass/Vol] 185 mg/dL Normal <=200 [facility] Comment on above: Performed By: #### C MP, TSH, LIPID #### [facility] [address] [place] [address] Dr. Elmer Hopkins Cholesterol in HDL [Mass/Vol] 45 mg/dL Normal 40-60 [facility] Comment on above: Performed By: #### C MP, TSH, LIPID #### [facility] [address] [place] [address] Dr. Elmer Hopkins Cholesterol in LDL [Mass/Vol] 120.4 mg/dL Normal [facility] Comment on above: Performed By: #### C MP, TSH, LIPID #### [facility] [address] [place] [address] Dr. Elmer Hopkins Cholesterol.total/Cho lesterol in HDL [Mass ratio] 4.1 {ratio} Normal [facility] Comment on above: Performed By: #### C MP, TSH, LIPID #### [facility] [address] [address] [address] Elmer Hopkins HDL NORMAL > or = 60 mg/dl - LOW CARDIOVASCULAR RISK <40 mg/dl - HIGH CARDIOVASCULAR RISK Normal [facility] Comment on above: Performed By: #### C MP, TSH, LIPID #### [facility] [address] [address] [address] Elmer Hopkins LDL CALC NORMAL SEE BELOW Normal [facility] Comment on above: Result Comment: <100 mg/dl OPTIMAL 100 - 129 mg/dl NEAR OR ABOVE OPTIMAL 130 - 159 mg/dl BORDERLINE HIGH 160 - 189 mg/dl HIGH >190 mg/dl VERY HIGH Performed By: #### C MP, TSH, LIPID #### [facility] [address] [address] [address] Elmer Hopkins Triglyceride [Mass/Vol] 98 mg/dL Normal <=150 [facility] Comment on above: Performed By: #### C MP, TSH, LIPID #### [facility] [address] [address] [address] Elmer Hopkins VLDL CALC 19.6 mg/dL Normal [facility] [place] Comment on above: Performed By: #### C MP, TSH, LIPID #### [facility] [address] [address] [address] Elmer Hopkins PROF 14(COMP METB)on 022 Albumin [Mass/Vol] 3.3 g/dL Critically low 3.4-5.0 Th e [facility] Comment on above: Performed By: #### C MP, TSH, LIPID #### [facility] [address] [place] [address] Dr. Elmer Hopkins Albumin/Globulin [Mass ratio] 0.9 {ratio} Normal [facility] [place] Comment on above: Performed By: #### C MP, TSH, LIPID #### [facility] [address] [address] [address] Elmer Hopkins ALP [Catalytic activity/Vol] 99 U/L Normal 46-116 [facility] [place] Comment on above: Performed By: #### C MP, TSH, LIPID #### [facility] [address] [address] [address] Elmer Hopkins ALT [Catalytic activity/Vol] 102 U/L Critically high 14-59 [facility] [place] Comment on above: Performed By: #### C MP, TSH, LIPID #### [facility] [address] [address] [address] Elmer Hopkins Anion gap [Moles/Vol] 8.3 mmol/L Normal [facility] [place] Comment on above: Performed By: #### C MP, TSH, LIPID #### [facility] [address] [place] [address] Dr. Elmer Hopkins AST [Catalytic activity/Vol] 49 U/L Critically high 15-37 [facility] [place] Comment on above: Performed By: #### C MP, TSH, LIPID #### [facility] [address] [place] [address] Dr. Elmer Hopkins Bilirubin [Mass/Vol] 0.3 mg/dL Normal 0.2-1.0 [facility] [place] Comment on above: Performed By: #### C MP, TSH, LIPID #### [facility] [address] [place] [address] Dr. Elmer Hopkins Calcium [Mass/Vol] 8.7 mg/dL Normal 8.5-10.1 [facility] Comment on above: Performed By: #### C MP, TSH, LIPID #### [facility] [address] [place] [address] Dr. Elmer Hopkins Chloride [Moles/Vol] 107 mmol/L Normal 98-107 [facility] [place] Comment on above: Performed By: #### C MP, TSH, LIPID #### [facility] [address] [place] [address] Dr. Elmer Hopkins CO2 [Moles/Vol] 30.7 mmol/L Normal 21.0-32.0 [facility] Comment on above: Performed By: #### C MP, TSH, LIPID #### [facility] [address] [address] [address] Elmer Hopkins Creatinine [Mass/Vol] 0.94 mg/dL Normal 0.55-1.02 [facility] [place] Comment on above: Performed By: #### C MP, TSH, LIPID #### [facility] [address] [address] [address] Elmer Hopkins EGFR-AF MONEGASQUE >60 Normal >=60 [facility] Comment on above: Performed By: #### C MP, TSH, LIPID #### [facility] [address] [address] [address] Elmer Hopkins EGFR-NON AF MONEGASQUE >60 Normal >=60 [facility] Comment on above: Performed By: #### C MP, TSH, LIPID #### [facility] [address] [address] [address] Elmer Hopkins Globulin (S) [Mass/Vol] 3.8 g/dL Normal [facility] Comment on above: Performed By: #### C MP, TSH, LIPID #### [facility] [address] [address] [address] Elmer Hokpins Glucose [Mass/Vol] 125 mg/dL Critically high 74-106 T [facility] Comment on above: Performed By: #### C MP, TSH, LIPID #### [facility] [address] [address] [address] Elmer Hopkins Potassium [Moles/Vol] 4.0 mmol/L Normal 3.5-5.1 [facility] [place] Comment on above: Performed By: #### C MP, TSH, LIPID #### [facility] [address] [address] [address] Elmer Hopkins Protein [Mass/Vol] 7.1 g/dL Normal 6.4-8.2 [facility] Comment on above: Performed By: #### C MP, TSH, LIPID #### [facility] [address] [address] [address] Elmer Hopkins Sodium [Moles/Vol] 142 mmol/L Normal 136-145 [facility] Comment on above: Performed By: #### C MP, TSH, LIPID #### [facility] [address] [address] [address] Elmer Hopkins Urea nitrogen [Mass/Vol] 10.0 mg/dL Normal 7.0-18.0 [facility] Comment on above: Performed By: #### C MP, TSH, LIPID #### [facility] [address] [address] [address] Elmer Hopkins Urea nitrogen/Creatinine [Mass ratio] 10.6 mg/mg Normal [facility] [place] Comment on above: Performed By: #### C MP, TSH, LIPID #### [facility] [address] [address] [address] Elmer Hopkins TSHon 08-13-2021 TSH 2.083 uIU/mL Normal 0.358-3.740 [facility] Comment on above: Performed By: #### C MP, TSH, LIPID #### [facility] [address] [address] [address] Elmer Hopkins AMYLASEon 10-15-2020 Amylase [Catalytic activity/Vol] 59 U/L Normal 31-110 [facility] Comment on above: Performed By: #### C MADM, LIPA, KEMAR, CMP ####[facility] P[address] [place] CARDIAC STEFFI ADMITon 021 CK [Catalytic activity/Vol] 80 U/L Normal 30-135 [facility] [place] Comment on above: Performed By: #### C MADM, LIPA, KEMAR, CMP ####[facility] [address] [place] CK.MB [Mass/Vol] ng/mL Normal <=2.37 [facility] Comment on above: Performed By: #### C MADM, LIPA, KEMAR, CMP ####[facility] Zy[address]272 [address] [place] HSTROP <4.0 Normal 4.0-35.5 [facility] Comment on above: Result Comment: CUT- OFF POINTS HAVE BEEN ESTABLISHED BASED ON THE FOURTH UNIVERSAL DEFINITIONS OF MYOCARDIAL INFARCTION. THE UPPER REFERENCE LIMIT (URL) OF TROPONIN, DEFINED THE 99TH PERCENTILE OF cTnI DISTRIBUTION IN A REFERENCE POPULATION, HAS BEEN CONFIRMED THE DECISION THRESHOLD FOR DE DIAGNOSIS. Performed By: #### C GENESIS SUMMERS AMY, CMP ####[facility] [address] [id number] ALLI 30.0 ng/mL Normal <=61.5 [facility] Comment on above: Performed By: #### C GENESIS SUMMERS AMY, CMP ####[facility] [address] [place] [address] [place] CBC AUTO DIFFon 10-15-2020 BASO # 0.1 103/ul Normal 0.0-0.1 [facility] Comment on above: Performed By: #### C BC ####[facility] [address] [place] [address] [place] Basophils/100 WBC (Bld) 0.4 % Normal 0.2-2.0 [facility] Comment on above: Performed By: #### C BC ####[facility] [address] [place] [address] [place] EO # 0.8 103/ul Critically high 0.0-0.7 [facility] Comment on above: Performed By: #### C BC ####[facility] [address] [place] [address] [place] Eosinophils/100 WBC (Bld) 6.1 % Normal 0.9-7.0 [facility] Comment on above: Performed By: #### C BC ####[facility] [address] [place] [address] [place] Erythrocyte distribution width (RBC) [Ratio] 13.2 % Normal 11.0-15.0 [facility] Comment on above: Performed By: #### C BC ####[facility] [address] [place] [address] [place] Hematocrit (Bld) [Volume fraction] 44.2 % Normal 36.0-48.0 [facility] Comment on above: Performed By: #### C BC ####[facility] [address] [id number] Hemoglobin (Bld) [Mass/Vol] 14.8 g/dL Normal 12.0-16.0 [facility] Comment on above: Performed By: #### C BC ####[facility] [address] [id number] IG # 0.05 10e3/ul Critically high 0.00-0.[address] [facility] Comment on above: Performed By: #### C BC ####[facility] [address] [place] IG % 0.4 % Normal 0.0-0.5 [facility] Comment on above: Performed By: #### C BC ####[facility] [address] [place] [address] [place] LYMPH # 3.2 103/ul Normal 1.2-3.8 [facility] Comment on above: Performed By: #### C BC ####[facility] [address] [place] [address] [place] Lymphocytes/100 WBC (Bld) 24.1 % Normal 20.5-60.0 [facility] Comment on above: Performed By: #### C BC ####[facility] [address] [place] [address] [place] MANUAL DIFF REQ NO Normal [facility] Comment on above: Performed By: #### C BC ####[facility] [address] [id number] MCH (RBC) [Entitic mass] 30.9 pg Normal 26.7-34.0 [facility] Comment on above: Performed By: #### C BC ####[facility] [address] [place], [place] [id number] MCHC (RBC) [Mass/Vol] 33.5 g/dL Normal 29.9-35.2 [facility] Comment on above: Performed By: #### C BC ####[facility] [address] [place] [address] [place] MCV (RBC) [Entitic vol] 92.3 fL Normal 81.0-99.0 [facility] Comment on above: Performed By: #### C BC ####[facility] [address] [place] [address] [place] MONO # 1.0 103/ul Critically high 0.3-0.8 [facility] Comment on above: Performed By: #### C BC ####[facility] [address] [place] [address] [place] Monocytes/100 WBC (Bld) 7.3 % Normal 1.7-12.0 [facility] Comment on above: Performed By: #### C BC ####[facility] [address] [place] [address] [place] NEUT # 8.2 103/ul Critically high 1.4-6.5 [facility] Comment on above: Performed By: #### C BC ####[facility] [address] [place] [address] [place] Neutrophils/100 WBC (Bld) 61.7 % Normal 43.0-75.0 [facility] Comment on above: Performed By: #### C BC ####[facility] [address] [place] [address] [place] Platelet mean volume (Bld) [Entitic vol] 9.7 fL Normal 9.5-13.5 [facility] Comment on above: Performed By: #### C BC ####[facility] [address] [place] [address] [place] PLT 414 103/ul Normal 150-450 [facility] Comment on above: Performed By: #### C BC ####[facility] [address] [place], [place] [address] RBC 4.79 106/ul Normal 4.20-5.40 [facility] Comment on above: Performed By: #### C BC ####[facility] [address] [place], [place] [address] [place] WBC 13.3 103/ul Critically high 4.0-11.0 [facility] Comment on above: Performed By: #### C ####[facility] [address] [place], [place] [address] ABD/PELVIS WO CONon 10-15 CT [...] content not included)... Normal [facility] LIPASEon 10-15-2020 Lipase [Catalytic activity/Vol] 70.0 U/L Normal 23.0-300.0 [facility] Comment on above: Performed By: #### C GENESIS SUMMERS KEMAR, CMP ####[facility] [address] [place], [place] [address] [place] URon 10-15-2020 , QUAL Negative Normal NEGATIVE [facility] Comment on above: Performed By: #### P REGU #### [facility] [address] [place], [place] [address] [place] PROF 14(COMP METB)on 021 Albumin [Mass/Vol] 4.1 g/dL Normal 3.5-5.0 [facility] Comment on above: Performed By: #### C GENESIS SUMMERS KEMAR, CMP #### [facility] [address] [id number] [place] Albumin/Globulin [Mass ratio] 1.0 {ratio} Normal [facility] Comment on above: Performed By: #### C MELINA, BILLYA, KEMAR, CMP #### [facility] [address] [address] [place] ALP [Catalytic activity/Vol] 93 U/L Normal 38-126 [facility] Comment on above: Performed By: #### C MELINA, GENESIS, KEMAR, CMP #### [facility] [address] [id number] [place] ALT [Catalytic activity/Vol] 90 U/L Critically high 9-52 [facility] Comment on above: Performed By: #### C MELINA, LIPA, KEMAR, CMP #### [facility] [address] [place], [place] [address] [place] Anion gap [Moles/Vol] 13.8 mmol/L Normal [facility] Comment on above: Performed By: #### C MELINA, LIPA, KEMAR, CMP #### [facility] [address] [id number] [place] AST [Catalytic activity/Vol] 37 U/L Critically high 14-36 [facility] [place] Comment on above: Performed By: #### C BILLY SUMMERSA, KEMAR, CMP #### [facility] [address] [place] [address] [place] Bilirubin [Mass/Vol] 0.3 mg/dL Normal 0.2-1.3 [facility] Comment on above: Performed By: #### C MADM, LIPA, KEMAR, CMP #### [facility] [address] [place] [address] [place] Calcium [Mass/Vol] 9.4 mg/dL Normal 8.4-10.2 [facility] Comment on above: Performed By: #### C MADM, LIPA, KEMAR, CMP #### [facility] [address] [place] [address] [place] Chloride [Moles/Vol] 104 mmol/L Normal 98-107 [facility] Comment on above: Performed By: #### C MADM, LIPA, KEMAR, CMP #### [facility] [address] [place] [address] [place] CO2 [Moles/Vol] 28.0 mmol/L Normal 22.0-30.0 [facility] Comment on above: Performed By: #### C MADCasa, LIPA, KEMAR, CMP #### [facility] [address] [place] [address] [place] Creatinine [Mass/Vol] 0.80 mg/dL Normal 0.52-1.04 [facility] Comment on above: Performed By: #### C MADM, LIPA, KEMAR, CMP #### [facility] [address] [place] [address] [place] EGFR-AF MONEGASQUE >60 Normal >=60 [facility] Comment on above: Performed By: #### C MADM, LIPA, KEMAR, CMP #### [facility] [address] [place] [address] [place] EGFR-NON AF MONEGASQUE >60 Normal >=60 [facility] Comment on above: Performed By: #### C MADM, LIPA, KEMAR, CMP #### [facility] [address] [place] [address] [place] Globulin (S) [Mass/Vol] 4.0 g/dL Normal [facility] Comment on above: Performed By: #### C GENESIS SUMMERS AMY, CMP #### [facility] [address] [address] [place] Glucose [Mass/Vol] 86 mg/dL Normal 74-106 [facility] Comment on above: Performed By: #### C GENESIS SUMMERS AMY, CMP #### [facility] [address] [address] [place] Potassium [Moles/Vol] 3.8 mmol/L Normal 3.4-5.0 [facility] Comment on above: Performed By: #### C GENESIS SUMMERS AMY, CMP #### [facility] [address] [place] [address] [place] Protein [Mass/Vol] 8.1 g/dL Normal 6.1-8.2 [facility] Comment on above: Performed By: #### C GENESIS SUMMERS AMY, CMP #### [facility] [address] [place] [address] [place] Sodium [Moles/Vol] 142 mmol/L Normal 137-145 [facility] Comment on above: Performed By: #### C GENESIS SUMMERS AMY, CMP #### [facility] [address] [place] [address] [place] Urea nitrogen [Mass/Vol] 11.0 mg/dL Normal 7.0-17.0 [facility] Comment on above: Performed By: #### C GENESIS SUMMERS AMY, CMP #### [facility] [address] [id number] [place] Urea nitrogen/Creatinine [Mass ratio] 13.8 mg/mg Normal [facility] Comment on above: Performed By: #### C GENESIS SUMMERS AMY, CMP #### [facility] [address] [place], [place] [address] [place] ER URINE PROFILEon 1 Bilirubin Ql (U) Negative Normal NEGATIVE [facility] Comment on above: Performed By: #### E RUR #### [facility] [address] [place] [address] [place] Clarity (U) CLEAR Normal CLEAR [facility] Comment on above: Performed By: #### E RUR #### [facility] [address] [place] [address] [place] Color (U) YELLOW Normal YELLOW [facility] Comment on above: Performed By: #### E RUR #### [facility] [address] [place] [address] [place] ERUAHD A micrscopic examination will be performed if indicated. Normal [facility] Comment on above: Performed By: #### E RUR #### [facility] [address] [place] [address] [place] Glucose Ql (U) Negative Normal NEGATIVE [facility] Comment on above: Performed By: #### E RUR #### [facility] [address] [place] [address] [place] Hemoglobin Ql (U) Negative Normal NEGATIVE [facility] Comment on above: Performed By: #### E RUR #### [facility] [address] [place] [address] [place] Ketones Ql (U) TRACE Abnormal NEGATIVE [facility] Comment on above: Performed By: #### E RUR #### [facility] [address] [place] [address] [place] LEUKOCYTES Negative Normal NEGATIVE [facility] Comment on above: Performed By: #### E RUR #### [facility] [address] [place] [address] [place] Nitrite Ql (U) Negative Normal NEGATIVE [facility] Comment on above: Performed By: #### E RUR #### [facility] [address] [place] [address] [place] pH (U) 6.0 [pH] Normal 5-9 [facility] Comment on above: Performed By: #### E RUR #### [facility] [address] [place] [address] [place] SPEC GRAVITY 1.025 Normal 1.005-<=1.025 [facility] Comment on above: Performed By: #### E RUR #### [facility] [address] [place] [address] [place] UA PROTEIN Negative Normal NEGATIVE/ TRACE [facility] Comment on above: Performed By: #### E RUR #### [facility] [address] [place] [address] [place] UR MICRO IND NOT INDICATED Normal [facility] Comment on above: Performed By: #### E RUR #### [facility] [address] [place] [address] [place] Urobilinogen Qn (U) 0.2 {Rachel'U}/dL Normal 0.2 - 1. 0 [facility] Comment on above: Performed By: #### E RUR #### [facility] [address] [place] [address] [place] CBCon 09-03-2020 Erythrocyte distribution width (RBC) [Ratio] 12.4 % Normal 11.8-14.4 [facility] Comment on above: Performed By: #### C BC, HCG, CP #### [facility] [address] [place] [address] [place] [address] Steel Detailer: Josué Monae MD #### HIVCMB, PHEP #### [place] [id number] Steel Detailer: Thang Nielsen MD Hematocrit (Bld) [Volume fraction] 47.9 % High 36.3-47.1 [facility] Comment on above: Performed By: #### C BC, HCG, CP #### [facility] [address] [place] [address] Steel Detailer: Josué Monae MD #### HIVCMB, PHEP #### [address] [id number] Steel Detailer: Thang Nielsen MD Hemoglobin (Bld) [Mass/Vol] 15.6 g/dL High 11.9-15.1 [facility] Comment on above: Performed By: #### C BC, HCG, CP #### [address] [place], [place] [id number] Steel Detailer: Josué Monae MD #### HIVCMB, PHEP #### [address] [id number] Steel Detailer: Thang Nielsen MD MCH (RBC) [Entitic mass] 30.6 pg Normal 25.2-33.5 [facility] Comment on above: Performed By: #### C BC, HCG, CP #### [address] [place] [id number] Steel Detailer: Josué Monae MD #### HIVCMB, PHEP #### [address] [id number] Steel Detailer: Thang Nielsen MD MCHC (RBC) [Mass/Vol] 32.6 g/dL Normal 28.4-34.8 [facility] Comment on above: Performed By: #### C BC, HCG, CP #### [address] [place] [place] [id number] Steel Detailer: Josué Monae MD #### HIVCMB, PHEP #### [address] [place] [address] Steel Detailer: Thang Nielsen MD MCV (RBC) [Entitic vol] 94.1 fL Normal 82.6-102.9 [facility] Comment on above: Performed By: #### C BC, HCG, CP #### [address] [place], [place] [id number] Steel Detailer: Josué Monae MD #### HIVCMB, PHEP #### [address] [id number] Steel Detailer: Thang Nielsen MD NRBC Automated 0.0 per 100 WBC Normal 0.0 [facility] Comment on above: Performed By: #### C BC, HCG, CP #### [facility] [address] [place] [address] [place], [place] [id number] Steel Detailer: Josué Monae MD #### HIVCMB, PHEP #### [address] [place], [place] [phone] Steel Detailer: Thang Nielsen MD Platelet mean volume (Bld) [Entitic vol] 9.8 fL Normal 8.1-13.5 [facility] Comment on above: Performed By: #### C BC, HCG, CP #### [facility] [address] [place] [address] [place] [phone] Steel Detailer: Josué Monae MD #### HIVCMB, PHEP #### [address] [phone] Steel Detailer: Thang Nielsen MD Platelets (Bld) [#/Vol] 394 10*3/uL Normal 138-453 [facility] Comment on above: Performed By: #### C BC, HCG, CP #### [facility] [address] [place] [address] [place] [phone] Steel Detailer: Josué Monae MD #### HIVCMB, PHEP #### [address] [address] Steel Detailer: Thang Nielsen MD RBC (Bld) [#/Vol] 5.09 10*6/uL Normal 3.95-5.11 [facility] Comment on above: Performed By: #### C BC, HCG, CP #### [facility] [address] [place] [address] [place], [place] [phone] Steel Detailer: Josué Monae MD #### HIVCMB, PHEP #### [address] [place], [place] [phone] Steel Detailer: Thang Nielsen MD WBC (Bld) [#/Vol] 9.1 10*3/uL Normal 3.5-11.3 [facility] Comment on above: Performed By: #### C BC, HCG, CP #### [facility] [address] [place] [address] Steel Detailer: Josué Monae MD #### HIVCMB, PHEP #### [facility] [employer] [address] [place], [place] [phone] Steel Detailer: Thang Nielsen MD CBCOrdered By: Channing Yin on 09-03-2020 Hematocrit (Bld) [Volume fraction] 47.9 % High 36.3 - 47.1 % [employer] Phone: Hemoglobin.gastrointe stinal spec 1 Ql (Stl) 15.6 g/dL High 11.9 - 15.1 g/dL [employer] Phone: Interpretation and review of laboratory results Abnormal [employer] Phone: MCH (RBC) [Entitic mass] 30.6 pg 25.2 - 33.5 pg [employer] Phone: MCHC (RBC) [Mass/Vol] 32.6 g/dL 28.4 - 34.8 g/dL [employer] Phone: MCV (RBC) [Entitic vol] 94.1 fL 82.6 - 102.9 fL [employer] Phone: NRBC Automated 0.0 0.0 per 100 WBC [employer] Phone: Platelet distribution width (Bld) [Ratio] 12.4 % 11.8 - 14.4 % [employer] Phone: Platelet mean volume (Bld) [Entitic vol] 9.8 fL 8.1 - 13.5 fL [employer] Phone: Platelets (Bld) [#/Vol] 394 10*3/uL [facility] [employer] Phone: RBC (Bld) [#/Vol] 5.09 10*6/uL 3.95 - 5.1 1 m/uL [facility] [employer] Phone: WBC (Bld) [#/Vol] 9.1 10*3/uL [facility] [employer] Phone: [facility] Phone: Comp Metabolic Profon 2020 (cont.) Normal [facility] Comment on above: Result Comment: Aver age GFR for 30-39 years old: 107 mL/min/1.73sq m Chronic Kidney Disease: <60 mL/min/1.73sq m Kidney failure: <15 mL/min/1.73sq m eGFR calculated using average adult body mass. Additional eGFR calculator available at: http://www.ProntoForms/multiple_crcl_2011.htm Performed By: #### C BC, HCG, CP #### [facility] [address] [place] [address] Steel Detailer: Josué Monae MD #### HIVCMB, PHEP #### [place] [address] [place] [address] Steel Detailer: Thang Nielsen MD Albumin [Mass/Vol] 4.2 g/dL Normal 3.5-5.2 [facility] Comment on above: Performed By: #### C BC, HCG, CP #### [facility] [address] [place] [address] Steel Detailer: Josué Monae MD #### HIVCMHayley, PHEP #### [address] [address] Steel Detailer: Thang Nielsen MD Albumin/Glob Ratio 1.2 Normal 1.0-2.5 [facility] Comment on above: Performed By: #### C BC, HCG, CP #### [facility] [address] [place], [place] [phone] Steel Detailer: Josué Monae MD #### HIVCMB, PHEP #### [place] [address] [place], [place] [phone] Steel Detailer: Thang Nielsen MD Alkaline Phos 116 U/L High 35-104 [facility] Comment on above: Performed By: #### C BC, HCG, CP #### [facility] [address] [place], [place] [phone] Steel Detailer: Josué Monae MD #### HIVCMB, PHEP #### [place] [address] [place], [place] [phone] Steel Detailer: Thang Nielsen MD ALT [Catalytic activity/Vol] 96 U/L High 5-33 [facility] Comment on above: Performed By: #### C BC, HCG, CP #### [facility] [address] [place], [place] [phone] Steel Detailer: Josué Monae MD #### HIVCMHayley, PHEP #### [address] [place] [address] Steel Detailer: Thang Nielsen MD Anion gap [Moles/Vol] 11 mmol/L Normal 9-17 [facility] Comment on above: Performed By: #### C BC, HCG, CP #### [facility] [address] [place], [place] [phone] Steel Detailer: Josué Monae MD #### HIVCMB, PHEP #### [address] [address] Steel Detailer: Thang Nielsen MD AST [Catalytic activity/Vol] 61 U/L High <32 [facility] Comment on above: Performed By: #### C BC, HCG, CP #### [facility] [address] [place], [place] [phone] Steel Detailer: Josué Monae MD #### HIVCMB, PHEP #### [address] [place], [place] [phone] Steel Detailer: Thang Nielsen MD Bilirubin [Mass/Vol] 1.47 mg/dL High 0.3-1.2 [facility] Comment on above: Performed By: #### C BC, HCG, CP #### [facility] [address] [place] [address] Steel Detailer: Josué Monae MD #### HIVCMB, PHEP #### [address] [phone] Steel Detailer: Thang Nielsen MD BUN/CRE Ratio 17 Normal 9-20 [facility] Comment on above: Performed By: #### C BC, HCG, CP #### [facility] [address] [place] [address] Steel Detailer: Josué Monae MD #### HIVCMB, PHEP #### [address] [phone] Steel Detailer: Thang Nielsen MD Calcium [Mass/Vol] 9.7 mg/dL Normal 8.6-10.4 [facility] Comment on above: Performed By: #### C BC, HCG, CP #### [facility] [address] [place] [address] [place] [address] Steel Detailer: Josué Monae MD #### HIVCMB, PHEP #### [address] [phone] Steel Detailer: Thang Nielsen MD Chloride [Moles/Vol] 104 mmol/L Normal 98-107 [facility] Comment on above: Performed By: #### C BC, HCG, CP #### [address] [place], [place] [phone] Steel Detailer: Josué Monae MD #### HIVCMB, PHEP #### [address] [phone] Steel Detailer: Thang Nielsen MD CO2 [Moles/Vol] 26 mmol/L Normal 20-31 [facility] Comment on above: Performed By: #### C BC, HCG, CP #### [address] [place], [place] 7103083 Steel Detailer: Josué Monae MD #### HIVCMB, PHEP #### [address] [phone] Steel Detailer: Thang Nielsen MD Creatinine [Mass/Vol] 0.76 mg/dL Normal 0.50-0.90 [facility] Comment on above: Performed By: #### C BC, HCG, CP #### [address] [place], [place] 9093583 Steel Detailer: Josué Monae MD #### HIVCMB, PHEP #### [address] [address] Steel Detailer: Thang Nielsen MD GFR, Amer >60 Normal >60 [facility] Comment on above: Performed By: #### C BC, HCG, CP #### [facility] [address] [place] [address] [place] [place], [place] [phone] Steel Detailer: Josué Monae MD #### HIVCMB, PHEP #### [address] [phone] Steel Detailer: Thang Nielsen MD GFR,non Amer >60 Normal >60 [facility] Comment on above: Performed By: #### C BC, HCG, CP #### [facility] [address] [place] [address] [place] [place], [place] [phone] Steel Detailer: Josué Monae MD #### HIVCMB, PHEP #### [address] [place], [place] [phone] Steel Detailer: Thang Nielsen MD Glucose [Mass/Vol] 112 mg/dL High 70-99 [facility] Comment on above: Performed By: #### C BC, HCG, CP #### [address] [place], [place] 4439183 Steel Detailer: Josué Monae MD #### HIVCMB, PHEP #### [address] [place], [place] 0845808 Steel Detailer: Thang Nielsen MD Potassium [Moles/Vol] 4.0 mmol/L Normal 3.7-5.3 [facility] Comment on above: Performed By: #### C BC, HCG, CP #### [address] [place] [phone] Steel Detailer: Josué Monae MD #### HIVCMB, PHEP #### [address] [phone] Steel Detailer: Thang Nielsen MD Protein [Mass/Vol] 7.6 g/dL Normal 6.4-8.3 [facility] Comment on above: Performed By: #### C BC, HCG, CP #### [address] [place] [address] Steel Detailer: Josué Monae MD #### HIVCMB, PHEP #### [address] [place], [place] [phone] Steel Detailer: Thang Nielsen MD Sodium [Moles/Vol] 141 mmol/L Normal 135-144 [facility] Comment on above: Performed By: #### C BC, HCG, CP #### [address] [place] [address] Steel Detailer: Josué Monae MD #### HIVCMB, PHEP #### [facility] [address] [place] [address] Steel Detailer: Thang Nilesen MD Staging: Normal [facility] Comment on above: Result Comment: Stag e 1: Some kidney damage normal GFR Stage 2: Mild kidney damage GFR 60-89 Stage 3: Moderate kidney damage GFR 30-59 Stage 4: Severe kidney damage GFR 15-29 Stage 5: Severe kidney damage GFR <15 ESRD - chronic treatment by dialysis or transplant Performed By: #### C BC, HCG, CP #### [facility] [address] [place] [address] Steel Detailer: Josué Monae MD #### HIVCMB, PHEP #### [facility] [address] [place] [address] Steel Detailer: Thang Nielsen MD Urea nitrogen [Mass/Vol] 13 mg/dL Normal 6-20 [facility] Comment on above: Performed By: #### C BC, HCG, CP #### [facility] [address] [place] [address] Steel Detailer: Josué Monae MD #### HIVCMB, PHEP #### [facility] [employer] [address] [place] [address] Steel Detailer: Thang Nielsen MD Comprehensive Metabolic Pane lOrdered By: Channing Yin on 09-03-2020 Albumin [Mass/Vol] 4.2 g/dL 3.5 - 5.2 g/dL [facility] [employer] Work Phone: Albumin/Globulin [Mass ratio] 1.2 {ratio} [facility] [employer] Phone: ALP (Bld) [Catalytic activity/Vol] 116 U/L High 35 - 104 U/L [facility] [employer] Phone: ALT [Catalytic activity/Vol] 96 U/L High 5 - 33 U/L [facility] [employer] Phone: Anion gap [Moles/Vol] 11 mmol/L 9 - 17 mmol/L [facility] [employer] Phone: AST [Catalytic activity/Vol] 61 U/L High <32 [facility] [employer] Phone: Bilirubin [Mass/Vol] 1.47 mg/dL High 0.3 - 1 .2 mg/dL [facility] Phone: Calcium [Mass/Vol] 9.7 mg/dL 8.6 - 10. 4 mg/dL [facility] Phone: Chloride [Moles/Vol] 104 mmol/L 98 - 10 7 mmol/L [facility] Phone: CO2 [Moles/Vol] 26 mmol/L 20 - 31 mmol/L [facility] Phone: Creatinine [Mass/Vol] 0.76 mg/dL 0.50 - 0.90 mg/dL [facility] Phone: Free PSA/Total PSA [Mass fraction] 7.6 g/dL 6.4 - 8.3 g/dL [facility] Phone: GFR >60 >60 mL/min [employer] Phone: GFR Non- >60 >60 mL/min [facility] [employer] Phone: Glucose [Mass/Vol] 112 mg/dL High 70 - 99 mg/dL [facility] [employer] Work Phone: Interpretation and review of laboratory results Abnormal [facility] [employer] Phone: Potassium [Moles/Vol] 4.0 mmol/L 3.7 - 5.3 mmol/L [facility] Phone: Sodium [Moles/Vol] 141 mmol/L 135 - 144 mmol/L [facility] Phone: Urea nitrogen (BldV) [Mass/Vol] 13 mg/dL 6 - 20 mg/dL [employer] Phone: Urea nitrogen/Creatinine (Bld) [Mass ratio] 17 [employer] Phone: [facility] Phone: HCG Qualitative, SerumOrdere d By: Channing Yin on 09-03-2020 hCG Qual Negative NEGATIVE [facility] Phone: Comment on above: Specimens with hCG l evels near the threshold of the test (25 mIU/mL) may give a negative or indeterminate result. In such cases, another test should be performed with a new specimen in 48-72 hours. If early is suspected clinically in this setting, correlation with quantitative serum b-hCG level is suggested. [employer] has confirmed the use of plasma for this test. This has not been cleared or approved by the U.S. Food and Drug Administration. The FDA has determined that such clearance is not necessary. [employer] Phone: HCG Screen, Bloodon 09-04-19 21 HCG Screen, Blood Negative Normal NEG [facility] Comment on above: Result Comment: Spec imens with hCG levels near the threshold of the test (25 mIU/mL) may give a negative or indeterminate result. In such cases, another test should be performed with a new specimen in 48-72 hours. If early is suspected clinically in this setting, correlation with quantitative serum b-hCG level is suggested. [employer] has confirmed the use of plasma for this test. This has not been cleared or approved by the U.S. Food and Drug Administration. The FDA has determined that such clearance is not necessary. Performed By: #### C BC, HCG, CP #### [facility] [address] [place] [address] Steel Detailer: Josué Monae MD #### HIVCMB, PHEP #### [address] [place] [address] Steel Detailer: Thang Nielsen MD HIV Ag/Abon 09-03-2020 HIV Ag/Ab Non-Reactive Normal NR [facility] Comment on above: Result Comment: No l aboratory evidence of HIV infection. If acute HIV infection is suspected, consider testing for HIV-1 RNA. Performed By: #### C BC, HCG, CP #### [address] [place] [address] Steel Detailer: Josué Monae MD #### HIVCMB, PHEP #### [address] [phone] Steel Detailer: Thang Nielsen MD HIV ScreenOrdered By: Channing Yin on 09-03-2020 HIV Ag/Ab Non-Reactive NONREACTIVE [facility] Work Phone: Comment on above: No laboratory eviden ce of HIV infection. If acute HIV infection is suspected, consider testing for HIV-1 RNA. [facility] Work Phone: Hepatitis Acute [facility] 09-03 Hep A Ab,IgM Non-Reactive Normal NR [facility] Comment on above: Performed By: #### C BC, HCG, CP #### [address] [place] [address] Steel Detailer: Josué Monae MD #### HIVCMB, PHEP #### [address] [address] Steel Detailer: Thang Nielsen MD Hep B Core Ab,IgM Non-Reactive Normal NR [facility] Comment on above: Performed By: #### C BC, HCG, CP #### [address] [place] [address] Steel Detailer: Josué Monae MD #### HIVCMB, PHEP #### [address] [address] Steel Detailer: Thang Nielsen MD Hep B Surf Ag Non-Reactive Normal NR [facility] Comment on above: Performed By: #### C BC, HCG, CP #### [address] [place] [address] Steel Detailer: Josué Monae MD #### HIVCMB, PHEP #### [facility] [address] [place], [place] [phone] Steel Detailer: Thang Nielsen MD Hep C Ab Reactive Abnormal NR [facility] Comment on above: Result Comment: [...] By: #### C BC, HCG, CP #### [address] [place] [address] Steel Detailer: Josué Monae MD #### HIVCMB, PHEP #### [address] [place], [place] [phone] Steel Detailer: Thang Nielsen MD Hepatitis Panel, AcuteOrdere d By: Channing Yin on 09-03-2020 HAV IgM IA Qn (S) Non-Reactive NONREACTIVE [facility] Work Phone: Hep B Core Ab, IgM Non-Reactive NONREACTIVE [facility] Work Phone: Hepatitis B Surface Ag Non-Reactive NONREACTIVE [facility] Work Phone: Hepatitis C Ab Reactive Abnormal NONREACTIVE [facility] Work Phone: Comment on above: The hepatitis [...] Interpretation and review of laboratory results Abnormal [facility] Work Phone: [employer] Phone: Laboratory - Chemistry and C hemistry - challengeOrdered By: Channing Yin on 09-03-2020 GFR/1.73 sq M.predicted MDRD (S/P/Bld) [Vol rate/Area] [employer] Phone: Comment on above: Average GFR for 30-3 9 years old: 107 mL/min/1.73sq m Chronic Kidney Disease: <60 mL/min/1.73sq m Kidney failure: <15 mL/min/1.73sq m eGFR calculated using average adult body mass. Additional eGFR calculator available at: http://www.ProntoForms/[employer]_crcl_2011.htm Stage 1: Some kidney damage normal GFR [...] Health Department Report Status FINAL 11/19/2019 Normal [facility] Comment on above: Performed By: #### H CVQ #### [facility] [employer] [facility] [place] [address] Steel Detailer: Thang Nielsen MD [facility] [address] [place] [address] Steel Detailer: Arnoldo Soni MD CBCon 11-15-2019 Erythrocyte distribution width (RBC) [Ratio] 12.6 % Normal 11.8-14.4 [facility] Comment on above: Performed By: #### C BC, CP, HCG #### [address] [place], [place] [phone] Steel Detailer: Arnoldo Soni MD #### PHEP, HIVCMB #### [address] [id number] Steel Detailer: Thang Nielsen MD Hematocrit (Bld) [Volume fraction] 45.5 % Normal 36.3-47.1 [facility] Comment on above: Performed By: #### C BC, CP, HCG #### [address] [place] [phone] Steel Detailer: Arnoldo Soni MD #### PHEP, HIVCMB #### [address] [address] Steel Detailer: Thang Nielsen MD Hemoglobin (Bld) [Mass/Vol] 14.7 g/dL Normal 11.9-15.1 [facility] Comment on above: Performed By: #### C BC, CP, HCG #### [address] [place] [phone] Steel Detailer: Arnoldo Soni MD #### PHEP, HIVCMB #### [address] [address] Steel Detailer: Thang Nielsen MD MCH (RBC) [Entitic mass] 31.3 pg Normal 25.2-33.5 [facility] Comment on above: Performed By: #### C BC, CP, HCG #### [address] [place], [place] 0738183 Steel Detailer: Arnoldo Soni MD #### PHEP, HIVCMB #### [address] [phone] Steel Detailer: Thang Nielsen MD MCHC (RBC) [Mass/Vol] 32.3 g/dL Normal 28.4-34.8 [facility] Comment on above: Performed By: #### C BC, CP, HCG #### [facility] [address] [place] [address] [address] [place] [phone] Steel Detailer: Arnoldo Soni MD #### PHEP, HIVCMB #### [address] [phone] Steel Detailer: Thang Nielsen MD MCV (RBC) [Entitic vol] 97.0 fL Normal 82.6-102.9 [facility] Comment on above: Performed By: #### C BC, CP, HCG #### [address] [place] [phone] Steel Detailer: Arnoldo Soni MD #### PHEP, HIVCMB #### [address] [id number] Steel Detailer: Thang Nielsen MD NRBC Automated 0.0 per 100 WBC Normal 0.0 [facility] Comment on above: Performed By: #### C BC, CP, HCG #### [facility] [address] [place] [address] [address] [place] [phone] Steel Detailer: Arnoldo Soni MD #### PHEP, HIVCMB #### [address] [address] Steel Detailer: Thang Nielsen MD Platelet mean volume (Bld) [Entitic vol] 10.3 fL Normal 8.1-13.5 [facility] Comment on above: Performed By: #### C BC, CP, HCG #### [facility] [address] [place] [address] [place] [phone] Steel Detailer: Arnoldo Soni MD #### PHEP, HIVCMB #### [address], [place] [phone] Steel Detailer: Thang Nielsen MD Platelets (Bld) [#/Vol] 434 10*3/uL Normal 138-453 [facility] Comment on above: Performed By: #### C BC, CP, HCG #### [facility] [address] [place] [address] [place] [place], [place] 4473883 Steel Detailer: Arnoldo Soni MD #### PHEP, HIVCMB #### [address] [phone] Steel Detailer: Thang Nielsen MD RBC (Bld) [#/Vol] 4.69 10*6/uL Normal 3.95-5.11 [facility] Comment on above: Performed By: #### C BC, CP, HCG #### [address] [place], [place] 2691183 Steel Detailer: Aronldo Soni MD #### PHEP, HIVCMB #### [address] [address] Steel Detailer: Thang Nielsen MD WBC (Bld) [#/Vol] 7.9 10*3/uL Normal 3.5-11.3 [facility] Comment on above: Performed By: #### C BC, CP, HCG #### [facility] [address] [place] [address] [place] [phone] Steel Detailer: Arnoldo Soni MD #### PHEP, HIVCMB #### [address] [address] Steel Detailer: Thang Nielsen MD Erythrocyte distribution width (RBC) [Ratio] 12.6 % 11.8 - 14.4 % [place], [place] Hematocrit (Bld) [Volume fraction] 45.5 % 36.3 - 47.1 % [place] Hemoglobin (Bld) [Mass/Vol] 14.7 g/dL 11.9 - 15.1 g/dL [place] MCH (RBC) [Entitic mass] 31.3 pg 25.2 - 33.5 pg [place] MCHC (RBC) [Mass/Vol] 32.3 g/dL 28.4 - 34.8 g/dL [place] MCV (RBC) [Entitic vol] 97.0 fL 82.6 - 102.9 fL [place] Platelet mean volume (Bld) [Entitic vol] 10.3 fL 8.1 - 13.5 fL [place], [place] Platelets (Bld) [#/Vol] 434 10*3/uL [place] RBC (Bld) [#/Vol] 4.69 10*6/uL 3.95 - 5.1 1 m/uL [place] WBC (Bld) [#/Vol] 0.0 10*3/uL 0.0 per 10 0 WBC [place] WBC (Bld) [#/Vol] 7.9 10*3/uL [place] Comp Metabolic Profon 2019 (cont.) Normal [facility] Comment on above: Result Comment: Aver age GFR for 30-39 years old: 107 mL/min/1.73sq m Chronic Kidney Disease: <60 mL/min/1.73sq m Kidney failure: <15 mL/min/1.73sq m eGFR calculated using average adult body mass. Additional eGFR calculator available at: http://www.[facility].[employer]/multiple_crcl_2011.htm Performed By: #### C BC, CP, HCG #### [facility] [address] [place] [address] Steel Detailer: Arnoldo Soni MD #### [place], HIVCMB #### [address] [address] Steel Detailer: Thang Nielsen MD Albumin [Mass/Vol] 3.8 g/dL Normal 3.5-5.2 [facility] Comment on above: Performed By: #### C BC, CP, HCG #### [address] [place], [place] [phone] Steel Detailer: Arnoldo Soni MD #### PHEP, HIVCMB #### [address] [phone] Steel Detailer: Thang Nielsen MD Albumin/Glob Ratio 1.2 Normal 1.0-2.5 [facility] Comment on above: Performed By: #### C BC, CP, HCG #### [address] [place], [place] 3532183 Steel Detailer: Arnoldo Soni MD #### PHEP, HIVCMB #### [address] [phone] Steel Detailer: Thang Nielsen MD Alkaline Phos 72 U/L Normal 35-104 [facility] Comment on above: Performed By: #### C BC, CP, HCG #### [address] [place], [place] [phone] Steel Detailer: Arnoldo Soni MD #### PHEP, HIVCMB #### [address] [phone] Steel Detailer: Thang Nielsen MD ALT [Catalytic activity/Vol] 72 U/L High 5-33 [facility] Comment on above: Performed By: #### C BC, CP, HCG #### [address] [place], [place] 0636083 Steel Detailer: Arnoldo Soni MD #### PHEP, HIVCMB #### [address] [address] Steel Detailer: Thang Nielsen MD Anion gap [Moles/Vol] 9 mmol/L Normal 9-17 [facility] Comment on above: Performed By: #### C BC, CP, HCG #### [address] [place] [address] Steel Detailer: Arnoldo Soni MD #### PHEP, HIVCMB #### [address] [place], [place] [phone] Steel Detailer: Thang Nielsen MD AST [Catalytic activity/Vol] 49 U/L High <32 [facility] Comment on above: Performed By: #### C BC, CP, HCG #### [facility] [address] [place] [phone] Steel Detailer: Arnoldo Soni MD #### PHEP, HIVCMB #### [address] [place], [place] [phone] Steel Detailer: Thang Nielsen MD Bilirubin [Mass/Vol] 0.32 mg/dL Normal 0.3-1.2 [facility] Comment on above: Performed By: #### C BC, CP, HCG #### [address] [place] [id number] Steel Detailer: Arnoldo Soni MD #### PHEP, HIVCMB #### [address] [phone] Steel Detailer: Thang Nielsen MD BUN/CRE Ratio 18 Normal 9-20 [facility] Comment on above: Performed By: #### C BC, CP, HCG #### [facility] [address] [place] [address] Dr. [place] [id number] Steel Detailer: Arnoldo Soni MD #### PHEP, HIVCMB #### [address] [place] [address] Steel Detailer: Thang Nielsen MD Calcium [Mass/Vol] 9.3 mg/dL Normal 8.6-10.4 [facility] Comment on above: Performed By: #### C BC, CP, HCG #### [facility] [address] [place], [place] [phone] Steel Detailer: Arnoldo Soni MD #### PHEP, HIVCMB #### [address] [place], [place] [phone] Steel Detailer: Thang Nielsen MD Chloride [Moles/Vol] 105 mmol/L Normal 98-107 [facility] Comment on above: Performed By: #### C BC, CP, HCG #### [facility] [address] [place], [place] [id number] Steel Detailer: Arnoldo Soni MD #### PHEP, HIVCMB #### [address] [id number] Steel Detailer: Thang Nielsen MD CO2 [Moles/Vol] 25 mmol/L Normal 20-31 [facility] Comment on above: Performed By: #### C BC, CP, HCG #### [facility] [address] [place], [place] [phone] Steel Detailer: Arnoldo Soni MD #### PHEP, HIVCMB #### [address] [id number] Steel Detailer: Thang Nielsen MD Creatinine [Mass/Vol] 0.57 mg/dL Normal 0.50-0.90 [facility] Comment on above: Performed By: #### C BC, CP, HCG #### [facility] [address] [place], [place] [phone] Steel Detailer: Arnoldo Soni MD #### PHEP, HIVCMB #### [address] [phone] Steel Detailer: Thang Nielsen MD GFR, Amer >60 Normal >60 [facility] Comment on above: Performed By: #### C BC, CP, HCG #### [facility] [address] [place], [place] [phone] Steel Detailer: Arnoldo Soni MD #### PHEP, HIVCMB #### [address] [place] [address] Steel Detailer: Thang Nielsen MD GFR,non Amer >60 Normal >60 [facility] Comment on above: Performed By: #### C BC, CP, HCG #### [facility] [address] [place], [place] [phone] Steel Detailer: Arnoldo Soni MD #### PHEP, HIVCMB #### [address] [place] [address] Steel Detailer: Thang Nielsen MD Glucose [Mass/Vol] 120 mg/dL High 70-99 [facility] Comment on above: Performed By: #### C BC, CP, HCG #### [facility] [address] [place], [place] [phone] Steel Detailer: Arnoldo Soni MD #### PHEP, HIVCMB #### [address] [address] Steel Detailer: Thang Nielsen MD Potassium [Moles/Vol] 3.7 mmol/L Normal 3.7-5.3 [facility] Comment on above: Performed By: #### C BC, CP, HCG #### [facility] [address] [place], [place] [phone] Steel Detailer: Arnoldo Soni MD #### PHEP, HIVCMB #### [address] [address] Steel Detailer: Thang Nielsen MD Protein [Mass/Vol] 7.1 g/dL Normal 6.4-8.3 [facility] Comment on above: Performed By: #### C BC, CP, HCG #### [facility] [address] [place], [place] [phone] Steel Detailer: Arnoldo Soni MD #### PHEP, HIVCMB #### [address] [address] Steel Detailer: Thang Nielsen MD Sodium [Moles/Vol] 139 mmol/L Normal 135-144 [facility] Comment on above: Performed By: #### C CAROL CP, HCG #### [facility] [address] [place], [place] [phone] Steel Detailer: Arnoldo Soni MD #### [place] HIVCMB #### [facility] [address] [place] [address] Steel Detailer: Thang Nielsen MD Staging: Normal [facility] Comment on above: Result Comment: Stag e 1: Some kidney damage normal GFR Stage 2: Mild kidney damage GFR 60-89 Stage 3: Moderate kidney damage GFR 30-59 Stage 4: Severe kidney damage GFR 15-29 Stage 5: Severe kidney damage GFR <15 ESRD - chronic treatment by dialysis or transplant Performed By: #### C CAROL CP, HCG #### [address] [place], [place] [phone] Steel Detailer: Arnoldo Soni MD #### PHEDonald HIVCMB #### [facility] [address] [place] [address] Steel Detailer: Thang Nielsen MD Urea nitrogen [Mass/Vol] 10 mg/dL Normal 6-20 [facility] Comment on above: Performed By: #### Sana MEDINA CP, HCG #### [address] [place], [place] [phone] Steel Detailer: Arnoldo Soni MD #### PHEP HIVCMB #### [facility] [address] [place] [address] Steel Detailer: Thang Nielsen MD Comprehensive Metabolic Pane leonardo 11-15-2019 Albumin [Mass/Vol] 3.8 g/dL 3.5 - 5.2 g/dL [place], [place] Albumin/Globulin [Mass ratio] 1.2 {ratio} [place], [place] ALP [Catalytic activity/Vol] 72 U/L 35 - 104 U/L [place] ALT [Catalytic activity/Vol] 72 U/L High 5 - 33 U/L [place] Anion gap [Moles/Vol] 9 mmol/L 9 - 17 mmol/L [place] AST [Catalytic activity/Vol] 49 U/L High <32 [place] Bilirubin Ql (U) 0.32 mg/dL 0.3 - 1.2 mg/dL [place] Bun/Cre Ratio 18 [place], [place] Calcium [Mass/Vol] 9.3 mg/dL 8.6 - 10. 4 mg/dL [place] Chloride [Moles/Vol] 105 mmol/L 98 - 10 7 mmol/L [place] CO2 [Moles/Vol] 25 mmol/L 20 - 31 mmol/L [place] Creatinine [Mass/Vol] 0.57 mg/dL 0.5 - 0.9 mg/dL [place] GFR >60 >60 mL/min [place], [place] GFR Non- >60 >60 mL/min [place] Glucose [Mass/Vol] 120 mg/dL High 70 - 99 mg/dL [place], [place] Interpretation and review of laboratory results Abnormal [place] Potassium [Moles/Vol] 3.7 mmol/L 3.7 - 5.3 mmol/L [place] Protein [Mass/Vol] 7.1 g/dL 6.4 - 8.3 g/dL [place] Sodium [Moles/Vol] 139 mmol/L 135 - 144 mmol/L [place] Urea nitrogen [Mass/Vol] 10 mg/dL 6 - 20 mg/dL [place] HCG Qualitative, Serumon hCG Qual Negative NEGATIVE [place] Comment on above: Specimens with hCG l evels near the threshold of the test (25 mIU/mL) may give a negative or indeterminate result. In such cases, another test should be performed with a new specimen in 48-72 hours. If early is suspected clinically in this setting, correlation with quantitative serum b-hCG level is suggested. [facility] has confirmed the use of plasma for this test. This has not been cleared or approved by the U.S. Food and Drug Administration. The FDA has determined that such clearance is not necessary. HCG Screen, Bloodon 11-15-19 20 HCG Screen, Blood Negative Normal NEG [facility] Comment on above: Result Comment: Spec imens with hCG levels near the threshold of the test (25 mIU/mL) may give a negative or indeterminate result. In such cases, another test should be performed with a new specimen in 48-72 hours. If early is suspected clinically in this setting, correlation with quantitative serum b-hCG level is suggested. [facility] has confirmed the use of plasma for this test. This has not been cleared or approved by the U.S. Food and Drug Administration. The FDA has determined that such clearance is not necessary. Performed By: #### C BC, CP, HCG #### [address] [place] [address] Steel Detailer: Arnoldo Soni MD #### PHEP, HIVCMB #### [facility] [address] [place] [address] Steel Detailer: Thang Nielsen MD HIV Ag/Abon 11-15-2019 HIV Ag/Ab Non-Reactive Normal NR [facility] Comment on above: Result Comment: No l aboratory evidence of HIV infection. If acute HIV infection is suspected, consider testing for HIV-1 RNA. Performed By: #### C BC, HCG, CP #### [address] [place] [address] Steel Detailer: Josué Monae MD #### HIVCMB, PHEP #### [facility] [address] [place] [address] Steel Detailer: Thang Nielsen MD HIV Screenon 11-15-2019 HIV Ag/Ab NONREACTIVE NONREACTIVE [facility] [place], [place] Comment on above: No laboratory eviden ce of HIV infection. If acute HIV infection is suspected, consider testing for HIV-1 RNA. Hepatitis Acute [facility] 11-14 Hep A Ab,IgM Non-Reactive Normal NR [facility] Comment on above: Performed By: #### C BC, CP, HCG #### [facility] [address] [place], [place] 2000383 Steel Detailer: Arnoldo Soni MD #### PHEP, HIVCMB #### [address] [phone] Steel Detailer: Thang Nielsen MD Hep B Core Ab,IgM Non-Reactive Normal [facility] Comment on above: Performed By: #### C BC, CP, HCG #### [address] [place], [place] [phone] Steel Detailer: Arnoldo Soni MD #### PHEP, HIVCMB #### [address] [phone] Steel Detailer: Thang Nielsen MD Hep B Surf Ag Non-Reactive Normal [facility] Comment on above: Performed By: #### C BC, CP, HCG #### [address] [place] [address] Steel Detailer: Arnoldo Soni MD #### PHEP, HIVCMB #### [address] [phone] Steel Detailer: Thang Nielsen MD Hep C Ab Reactive Abnormal [facility] Comment on above: Result Comment: The [...] By: #### C BC, CP, HCG #### [address] [place] [address] Steel Detailer: Arnoldo Soni MD #### PHEP, HIVCMB #### [facility] [address] [place] [phone] Steel Detailer: Thang Nielsen MD Hepatitis Panel, Acuteon HAV IgM [place] Qn (S) NONREACTIVE NONREACTIVE [place] Hep B Core Ab, IgM NONREACTIVE NONREACTIVE [place] Hepatitis B Surface Ag NONREACTIVE NONREACTIVE [place] Hepatitis C Ab REACTIVE Abnormal [facility]ACT[facility] [place] [place] Comment on above: The hepatitis C [...] Interpretation and review of laboratory results Abnormal [place] Metabolic Panelon 11-15-2019 GFR/1.73 sq M predicted among non-blacks MDRD (S/P/Bld) [Vol rate/Area] [place] Comment on above: Stage 1: Some [...] body mass. Additional eGFR calculator available at: http://[email or web address].com/multiple_crcl_2012.htm *BLOOD CULTUREon 01-02-2019 Bacteria identified Cx Nom (Bld) Clinical Report: (D) Specimen: BLOOD CULTURE Collected: 01/02/2019 09:25 Status: Final Last Updated: 01/07/2019 14:41 (1) Rt bicep CULT RES (Final) No Growth Day 5 Normal [facility] Comment on above: Order Comment: No: D o not add to previous draw Performed By: #### 4 1000, , 73530 #### [facility] [address] [place] [address], [facility] Bacteria identified Cx Nom (Bld) Clinical Report: (D) Specimen: BLOOD CULTURE Collected: 01/02/2019 09:25 Status: Final Last Updated: 01/07/2019 14:41 (1) Rt wrist CULT RES (Final) No Growth Day 5 Normal [facility] Comment on above: Order Comment: No: D o not add to previous draw Performed By: #### 4 1000, , 91917 #### [facility] [address] [place] [address], [place] BASIC METABOLIC PANELon 11-2 Calcium [Mass/Vol] 8.7 mg/dL Normal 8.6-10.3 [facility] Comment on above: Order Comment: No: D o not add to previous draw Performed By: #### 4 1000, , 36628 #### [facility] [address] [place] [address], [place] Chloride [Moles/Vol] 110 mmol/L High 98-107 [facility] Comment on above: Order Comment: No: D o not add to previous draw Performed By: #### 4 1000, , 93447 #### [facility] [address] [place] [address], [place] CO2 [Moles/Vol] 23 mmol/L Normal 21-31 [facility] Comment on above: Order Comment: No: D o not add to previous draw Performed By: #### 4 1000, 42177, 66204 #### [facility] [address] [place] [address], [place] Creatinine [Mass/Vol] 0.52 mg/dL Low 0.60-1.20 [facility] Comment on above: Order Comment: No: D o not add to previous draw Performed By: #### 4 1000, , 63116 #### [facility] [address] [place] [address], [place] GFR/1.73 sq M predicted among blacks MDRD (S/P/Bld) [Vol rate/Area] mL/min/{1.73_m2} Normal >60 [facility] Comment on above: Order Comment: No: D o not add to previous draw Performed By: #### 4 1000, 48646, 51848 #### [facility] [address] [place] [address], [place] GFR/1.73 sq M predicted among non-blacks MDRD (S/P/Bld) [Vol rate/Area] mL/min/{1.73_m2} Normal >60 [facility] Comment on above: Order Comment: No: D o not add to previous draw Performed By: #### 4 1000, , 77694 #### [facility] [address] [place] [address], [place] Glucose [Mass/Vol] 94 mg/dL Normal 70-100 [facility] Comment on above: Order Comment: No: D o not add to previous draw Performed By: #### 4 1000, , 59983 #### [facility] [address] [place] [address], [place] Potassium [Moles/Vol] 3.8 mmol/L Normal 3.5-5.1 [facility] Comment on above: Order Comment: No: D o not add to previous draw Performed By: #### 4 1000, , 58079 #### [facility] [address] [place] [address], [place] Sodium [Moles/Vol] 140 mmol/L Normal 136-145 [facility] Comment on above: Order Comment: No: D o not add to previous draw Performed By: #### 4 1000, , 13859 #### [facility] [address] [place] [address], [place] Urea nitrogen [Mass/Vol] 4 mg/dL Low 7-25 [facility] Comment on above: Order Comment: No: D o not add to previous draw Performed By: #### 4 1000, 30554, 83901 #### [facility] [address] [place] [address], [facility] C REACTIVE PROTEINon 019 CRP [Mass/Vol] 32.9 mg/L High 0.0-7.0 [facility] Comment on above: Order Comment: No: D o not add to previous draw Performed By: #### 4 1000, 83410, 99200 #### [facility] [address] [place] [id number], [facility] CBC COMPLETE BLOOD COUNTon 03-04-2018 Erythrocyte distribution width (RBC) [Ratio] 13.2 % Normal 11.5-15.0 [facility] Comment on above: Order Comment: No: D o not add to previous draw Performed By: #### 5 0608, 06633 #### [facility] [address] [place] [address], [facility] Hematocrit (Bld) [Volume fraction] 34.0 % Low 36.0-45.0 [facility] Comment on above: Order Comment: No: D o not add to previous draw Performed By: #### 5 0608, 11122 #### [facility] [address] [place] [address], [facility] Hemoglobin (Bld) [Mass/Vol] 11.2 g/dL Low 12.0-15.0 [facility] Comment on above: Order Comment: No: D o not add to previous draw Performed By: #### 5 0608, 35952 #### [facility] [address] [place] [address], [place] MCH (RBC) [Entitic mass] 30.9 pg Normal 27.0-33.0 [facility] Comment on above: Order Comment: No: D o not add to previous draw Performed By: #### 5 0608, 78261 #### [facility] [address] [place] MCHC (RBC) [Mass/Vol] 32.9 g/dL Normal 32.0-35.0 [facility] Comment on above: Order Comment: No: D o not add to previous draw Performed By: #### 5 607, 48064 #### [facility] [address] [place] [address], [facility] MCV (RBC) [Entitic vol] 93.7 fL Normal 82.0-98.0 [facility] Comment on above: Order Comment: No: D o not add to previous draw Performed By: #### 5 607, 42966 #### [facility] [address] [place] [address], [facility] Nucleated RBC/100 WBC (Bld) [Ratio] 0 % Normal 0-0 [facility] Comment on above: Order Comment: No: D o not add to previous draw Performed By: #### 5 607, 41755 #### [facility] [address] [place] [address], [facility] PLAT CNT 534 10*3/uL High 150-400 [facility] Comment on above: Order Comment: No: D o not add to previous draw Performed By: #### 5 607, 15050 #### [facility] [address] [place] [address], [facility] RBC (Bld) [#/Vol] 3.63 10*6/uL Low 3.80-5.00 [facility] Comment on above: Order Comment: No: D o not add to previous draw Performed By: #### 5 607, 97171 #### [facility] [address] [place] [id number], [facility] WBC (Bld) [#/Vol] 7.69 10*3/uL Normal 4.00-10.60 [facility] Comment on above: Order Comment: No: D o not add to previous draw Performed By: #### 5 607, [address]46[address] #### [facility] SEDIMENTATION RATEon 019 SED RATE 60 mm/hr High 0-20 [facility] Comment on above: Order Comment: No: D o not add to previous draw Performed By: #### 4 1000, 98244, [address] #### [address] HAND LEFT 3 [facility] 01-01-2019 HAND LEFT 3 [facility] Department of Radiology [address] [place] [id number] Patient Name: MORRIS DURAN : 1985 Sex: F Age: Race: White Pt. Location: [id number] Patient Status: D Ordered Date: 01/01/2019 10:40:00 AM Completed Date: 01/01/2019 01:09 PM Requesting Provider: EMERSON KOCH Attending Provider: BRIANNA LOPEZ Report Copy To: Signs & Symptoms: Gangrene History: See Comments Comments: R/O Osteomyelitis Exam: HAND LEFT 3 [facility] HAND LEFT 3 [facility] 01/01/2019 1:09 PM EST SIGNS AND [...] findings. Electronically signed by:Dante Hill. Transcribed by: [email or web address], User Resident: BEAR CHAMPION Electronically Signed by: DANTE HILL @ 01/04/2019 04:45 PM I personally read this/these film(s) with this resident Normal [facility] Comment on above: Order Comment: No: D o not add to previous draw MRI LUMBAR SPINE W WO CONTRA STon 01-01-2019 MRI LUMBAR SPINE W WO CONTRAST [facility] Department of Radiology [address] [place] [id number] Patient Name: MORRIS DURAN : 1985 Sex: F Age: Race: White Pt. Location: [address] [place] [address] Patient Status: I Ordered Date: 12/31/2018 9:35:00 [...] anteriorly Electronically signed by:Sivan Kimble. Transcribed by: [email or web address], User Resident: Electronically Signed by: SIVAN KIMBLE @ 01/02/2019 10:10 AM Normal [facility] Comment on above: Order Comment: No: D o not add to previous draw URINALYSIS REFLEXon 01-02-20 19 Appearance (U) SL CLOUDY Abnormal CLEAR [facility] Comment on above: Order Comment: No: D o not add to previous draw Criteria for reflexing a culture was not met. Please call the lab at [phone] within 24 hours of collection time if culture is needed Performed By: #### 3 0965 #### [facility] [address] [place] [address], [place] Bilirubin [Mass/Vol] Negative Normal NEGATIVE [facility] Comment on above: Order Comment: No: D o not add to previous draw Criteria for reflexing a culture was not met. Please call the lab at [phone] within 24 hours of collection time if culture is needed Performed By: #### 3 0965 #### [facility] [address] [place] [address], [place] BLOOD Negative Normal NEGATIVE [facility] Comment on above: Order Comment: No: D o not add to previous draw Criteria for reflexing a culture was not met. Please call the lab at [phone] within 24 hours of collection time if culture is needed Performed By: #### 3 0965 #### [facility] [address] [place] [address], [place] Color (U) YELLOW Normal YELLOW [facility] Comment on above: Order Comment: No: D o not add to previous draw Criteria for reflexing a culture was not met. Please call the lab at [phone] within 24 hours of collection time if culture is needed Performed By: #### 3 0965 #### [facility] [address] [place] [address], [place] EPIS MANY Abnormal FEW,OCC,NONE SEEN [facility] Comment on above: Order Comment: No: D o not add to previous draw Criteria for reflexing a culture was not met. Please call the lab at [phone] within 24 hours of collection time if culture is needed Performed By: #### 3 0965 #### [facility] [address] [place] [address], [place] Glucose [Mass/Vol] Negative Normal NEGATIVE [facility] Comment on above: Order Comment: No: D o not add to previous draw Criteria for reflexing a culture was not met. Please call the lab at [phone] within 24 hours of collection time if culture is needed Performed By: #### 3 0965 #### [facility] [address] [place] [address], [facility] KETONE 80 mg/dL Abnormal NEGATIVE [facility] Comment on above: Order Comment: No: D o not add to previous draw Criteria for reflexing a culture was not met. Please call the lab at [phone] within 24 hours of collection time if culture is needed Performed By: #### 3 0965 #### [facility] [address] [place] [address], [facility] LEUK MARIANA Negative Normal NEGATIVE [facility] Comment on above: Order Comment: No: D o not add to previous draw Criteria for reflexing a culture was not met. Please call the lab at [phone] within 24 hours of collection time if culture is needed Performed By: #### 3 0965 #### [facility] [address] [facility] [place] [address], [facility] MUCUS THREADS FEW Abnormal NONE SEEN [facility] Comment on above: Order Comment: No: D o not add to previous draw Criteria for reflexing a culture was not met. Please call the lab at [phone] within 24 hours of collection time if culture is needed Performed By: #### 3 0965 #### [facility] [address] [facility] [place] [place] [address], [facility] Nitrite Ql (U) Negative Normal NEGATIVE [facility] Comment on above: Order Comment: No: D o not add to previous draw Criteria for reflexing a culture was not met. Please call the lab at [phone] within 24 hours of collection time if culture is needed Performed By: #### 3 0965 #### [facility] [address] [place] [address], [facility] pH (Bld) 5.0 Normal 5.0-8.0 [facility] Comment on above: Order Comment: No: D o not add to previous draw Criteria for reflexing a culture was not met. Please call the lab at [phone] within 24 hours of collection time if culture is needed Performed By: #### 3 0965 #### [facility] [address] [facility] [place] [address], [facility] Protein (U) [Mass/Vol] 30 mg/dL Abnormal NEGATIVE [facility] Comment on above: Order Comment: No: D o not add to previous draw Criteria for reflexing a culture was not met. Please call the lab at [phone] within 24 hours of collection time if culture is needed Performed By: #### 3 0965 #### [facility] [address] [facility] [place] [address], [facility] RBC (U) [#/Vol] 0-2 Abnormal NONE SEEN [facility] Comment on above: Order Comment: No: D o not add to previous draw Criteria for reflexing a culture was not met. Please call the lab at [phone] within 24 hours of collection time if culture is needed Performed By: #### 3 0965 #### [facility] [address] SPEC GRAV 1.028 High 1.015-1.020 [facility] [facility] Comment on above: Order Comment: No: D o not add to previous draw Criteria for reflexing a culture was not met. Please call the lab at [phone] within 24 hours of collection time if culture is needed Performed By: #### 3 0965 #### [facility] [address] [place] [address], [facility] WBC UA 6-10 Abnormal NONE SEEN [facility] Comment on above: Order Comment: No: D o not add to previous draw Criteria for reflexing a culture was not met. Please call the lab at [phone] within 24 hours of collection time if culture is needed Performed By: #### 3 0965 #### [facility] [address] [facility] [place] [address], [facility] AMMONIA BLOODon 12-31-2018 Ammonia (P) [Mass/Vol] 42 umol/L Normal 16-53 [facility] Comment on above: Order Comment: No: D o not add to previous draw Performed By: #### 2 1408 #### [facility] [address] [place] [address], [place] BASIC METABOLIC PANELon 11-2 Calcium [Mass/Vol] 8.9 mg/dL Normal 8.6-10.3 [facility] Comment on above: Order Comment: No: D o not add to previous draw Performed By: #### 4 1000, , [id number] #### [facility] [address] [place] [address], [place] Chloride [Moles/Vol] 108 mmol/L High 98-107 [facility] Comment on above: Order Comment: No: D o not add to previous draw Performed By: #### 4 1000, , [id number] #### [facility] [address] [place] [address], [place] CO2 [Moles/Vol] 23 mmol/L Normal 21-31 [facility] Comment on above: Order Comment: No: D o not add to previous draw Performed By: #### 4 1000, , 91462 #### [facility] [address] [place] [address], [place] Creatinine [Mass/Vol] 0.54 mg/dL Low 0.60-1.20 [facility] Comment on above: Order Comment: No: D o not add to previous draw Performed By: #### 4 1000, , 35098 #### [facility] [address] [place] [address], [place] GFR/1.73 sq M predicted among blacks MDRD (S/P/Bld) [Vol rate/Area] mL/min/{1.73_m2} Normal >60 [facility] Comment on above: Order Comment: No: D o not add to previous draw Performed By: #### 4 1000, , 25586 #### [facility] [address] [place] [address], [place] GFR/1.73 sq M predicted among non-blacks MDRD (S/P/Bld) [Vol rate/Area] mL/min/{1.73_m2} Normal >60 [facility] Comment on above: Order Comment: No: D o not add to previous draw Performed By: #### 4 1000, 71491, 34981 #### [facility] [address] [place] [address], [place] Glucose [Mass/Vol] 66 mg/dL Low 70-100 [facility] Comment on above: Order Comment: No: D o not add to previous draw Performed By: #### 4 1000, 79443, 38542 #### [facility] [address] [place] [address], [place] Potassium [Moles/Vol] 3.6 mmol/L Normal 3.5-5.1 [facility] Comment on above: Order Comment: No: D o not add to previous draw Performed By: #### 4 1000, , 91368 #### [facility] [address] [place] [address], [place] Sodium [Moles/Vol] 140 mmol/L Normal 136-145 [facility] Comment on above: Order Comment: No: D o not add to previous draw Performed By: #### 4 1000, , 64786 #### [facility] [address] [place] [address], [place] Urea nitrogen [Mass/Vol] 8 mg/dL Normal 7-25 [facility] Comment on above: Order Comment: No: D o not add to previous draw Performed By: #### 4 1000, 30034, 41833 #### [facility] [address] [place] [address], [place] CBC W/DIFFon 12-31-2018 ABS BASOPHILS 0.0 10*3/uL Normal 0.0-0.2 [facility] Comment on above: Order Comment: No: D o not add to previous draw Performed By: #### 5 0103 #### [facility] [address] [place] [address], [facility] ABS IMM GRANS 0.0 10*3/uL Normal 0.0-0.2 [facility] Comment on above: Order Comment: No: D o not add to previous draw Performed By: #### 5 0103 #### [facility] [address] [place] [address], [facility] ABS NEUTROPHILS 6.8 10*3/uL Normal 1.6-7.6 [facility] Comment on above: Order Comment: No: D o not add to previous draw Performed By: #### 5 0103 #### [facility] [address] [facility] [place] [address], [facility] Basophils/100 WBC (Bld) 0.3 % Normal 0.0-1.0 [facility] Comment on above: Order Comment: No: D o not add to previous draw Performed By: #### 5 0103 #### [facility] [address] [place] [address], [facility] Eosinophils (Bld) [#/Vol] 0.3 10*3/uL Normal 0.0-0.5 [facility] Comment on above: Order Comment: No: D o not add to previous draw Performed By: #### 5 0103 #### [facility] [address] [facility] [place] [address], [facility] Eosinophils/100 WBC (Bld) 2.9 % Normal 0.0-6.0 [facility] Comment on above: Order Comment: No: D o not add to previous draw Performed By: #### 5 0103 #### [facility] [address] [place] [address], [facility] Erythrocyte distribution width (RBC) [Ratio] 12.8 % Normal 11.5-15.0 [facility] Comment on above: Order Comment: No: D o not add to previous draw Performed By: #### 5 0103 #### [facility] [address] [place] [address], [facility] Hematocrit (Bld) [Volume fraction] 33.6 % Low 36.0-45.0 [facility] Comment on above: Order Comment: No: D o not add to previous draw Performed By: #### 5 0103 #### [facility] [address] [place] [id number], [facility] Hemoglobin (Bld) [Mass/Vol] 10.9 g/dL Low 12.0-15.0 [facility] Comment on above: Order Comment: No: D o not add to previous draw Performed By: #### 5 0103 #### [facility] [address] [place] [id number], [facility] IMMATURE GRANS 0.4 % Normal 0.0-1.0 [facility] Comment on above: Order Comment: No: D o not add to previous draw Performed By: #### 5 0103 #### [facility] [address] [place] [address], [facility] Lymphocytes (Bld) [#/Vol] 1.9 10*3/uL Normal 1.2-4.0 [facility] Comment on above: Order Comment: No: D o not add to previous draw Performed By: #### 5 0103 #### [facility] [address] [place] [address], [facility] Lymphocytes/100 WBC (Bld) 19.6 % Low 20.0-45.0 [facility] Comment on above: Order Comment: No: D o not add to previous draw Performed By: #### 5 0103 #### [facility] [address] [place] [address], [facility] MCH (RBC) [Entitic mass] 30.6 pg Normal 27.0-33.0 [facility] Comment on above: Order Comment: No: D o not add to previous draw Performed By: #### 5 0103 #### [facility] [address] [place] [id number], [facility] MCHC (RBC) [Mass/Vol] 32.4 g/dL Normal 32.0-35.0 [facility] Comment on above: Order Comment: No: D o not add to previous draw Performed By: #### 5 0103 #### [facility] [address] [place] [address], [facility] MCV (RBC) [Entitic vol] 94.4 fL Normal 82.0-98.0 [facility] Comment on above: Order Comment: No: D o not add to previous draw Performed By: #### 5 0103 #### [facility] [address] [facility] [place] [address], [facility] Monocytes (Bld) [#/Vol] 0.8 10*3/uL Normal 0.1-1.0 [facility] Comment on above: Order Comment: No: D o not add to previous draw Performed By: #### 5 0103 #### [facility] [address] [facility] [place] [address], [facility] MONOS 7.9 % Normal 5.0-12.0 [facility] Comment on above: Order Comment: No: D o not add to previous draw Performed By: #### 5 0103 #### [facility] [address] [facility] [place] [address], [facility] Neutrophils/100 WBC (Bld) 68.9 % Normal 40.0-72.0 [facility] Comment on above: Order Comment: No: D o not add to previous draw Performed By: #### 5 0103 #### [facility] [address] [facility] [place] [address], [facility] Nucleated RBC/100 WBC (Bld) [Ratio] 0 % Normal 0-0 [facility] Comment on above: Order Comment: No: D o not add to previous draw Performed By: #### 5 3 #### [facility] [address] [place] [id number], [facility] PLAT CNT 452 10*3/uL High 150-400 [facility] Comment on above: Order Comment: No: D o not add to previous draw Performed By: #### 5 0103 #### [facility] [address] [place] [address], [facility] RBC (Bld) [#/Vol] 3.56 10*6/uL Low 3.80-5.00 [facility] Comment on above: Order Comment: No: D o not add to previous draw Performed By: #### 5 0103 #### [facility] [address] [place] [address], [facility] WBC (Bld) [#/Vol] 9.82 10*3/uL Normal 4.00-10.60 [facility] Comment on above: Order Comment: No: D o not add to previous draw Performed By: #### 5 0103 #### [facility] [address] [facility] [place] [address], [facility] LITHIUMon 12-31-2018 Sea Breeze [Moles/Vol] Normal [facility] Comment on above: Order Comment: Yes: Add to Previous draw if able Result Comment: Test Performed by [facility] [address] [place] [address] - Released 12/31/2018 21:21 Result changed by IF on 12/31/2018 21:21. The previous value was Test Performed by [facility] [address] [place] [address] [phone] Sea Breeze [Moles/Vol] mmol/L Low 0.6-1.2 [facility] Comment on above: Order Comment: Yes: Add to Previous draw if able LIVER BATTERYon 12-31-2018 Albumin [Mass/Vol] 3.4 g/dL Low 3.5-5.7 [facility] Comment on above: Order Comment: Yes: Add to Previous draw if able Performed By: #### 9 9909 #### [facility] [address] [place] [address], [facility] ALKALINE PHOSPH 66 IU/L Normal 34-104 [facility] Comment on above: Order Comment: Yes: Add to Previous draw if able Performed By: #### 9 9909 #### [facility] [address] [place] [address], [facility] ALT [Catalytic activity/Vol] 40 U/L Normal 7-52 [facility] Comment on above: Order Comment: Yes: Add to Previous draw if able Performed By: #### 9 9909 #### [facility] [address] [place] [address], [facility] AST [Catalytic activity/Vol] 41 U/L High 13-39 [facility] Comment on above: Order Comment: Yes: Add to Previous draw if able Performed By: #### 9 9909 #### [facility] [address] [place] [address], [place] Bilirubin [Mass/Vol] 0.4 mg/dL Normal 0.3-1.0 [facility] Comment on above: Order Comment: Yes: Add to Previous draw if able Performed By: #### 9 9909 #### [facility] [address] [place] [address], [facility] Bilirubin.direct [Mass/Vol] 0.2 mg/dL Normal 0.0-0.2 [facility] Comment on above: Order Comment: Yes: Add to Previous draw if able Performed By: #### 9 9909 #### [facility] [address] [place] [address], [facility] Protein [Mass/Vol] 6.1 g/dL Normal 6.0-8.3 [facility] Comment on above: Order Comment: Yes: Add to Previous draw if able Performed By: #### 9 9909 #### [facility] [address] [place] [address], [place] MAGNESIUM BLOODon 12-31-2018 Magnesium [Mass/Vol] 2.0 mg/dL Normal 1.9-2.7 [facility] Comment on above: Order Comment: No: D o not add to previous draw Performed By: #### 4 1000, 17129, 83838 #### [facility] [address] [place] [address], [facility] PHOSPHORUS BLOODon 9 Phosphate [Mass/Vol] 2.5 mg/dL Normal 2.5-5.0 [facility] Comment on above: Order Comment: No: D o not add to previous draw Performed By: #### 4 1000, 63162, 00871 #### [facility] [address] [place], [place] [address] [place] [address] PROCALCITONINon 12-31-2018 PROCALCITONIN 0.10 ng/mL Normal 0.00-0.10 [facility] Comment on above: Order Comment: No: [...] PCT<0.5ng/mL Performed By: #### 3 1488 #### [facility] [address] [place], [place] [id number] [place] [address] Basic Metabolic Profon 05-05 -2019 (cont.) Normal [facility] Comment on above: Result Comment: Aver age GFR for 30-39 years old: 107 mL/min/1.73sq m Chronic Kidney Disease: <60 mL/min/1.73sq m Kidney failure: <15 mL/min/1.73sq m eGFR calculated using average adult body mass. Additional eGFR calculator available at: http://www.[employer]/multiple_crcl_2012.htm Performed By: #### U AX, UMICAO #### [facility] [place] [address] Anion gap molar conc 12 mmol/L Normal 9-17 [facility] Comment on above: Performed By: #### U AX, UMICAO #### [facility] [employer] [address] [place] [address] Calcium mass conc 9.6 mg/dL Normal 8.6-10.4 [facility] Comment on above: Performed By: #### U AX, UMICAO #### [facility] [employer] [address] [place] [address] Chloride molar conc 104 mmol/L Normal 98-107 [facility] Comment on above: Performed By: #### U AX, UMICAO #### [facility] [employer] [address] [place] [address] CO2 molar conc 21 mmol/L Normal 20-31 [facility] Comment on above: Performed By: #### U AX, UMICAO #### [facility] [employer] [address] [place] [address] Creatinine mass conc 0.75 mg/dL Normal 0.50-0.90 [facility] Comment on above: Performed By: #### U AX, UMICAO #### [facility] [employer] [address] [place] [address]42 GFR, Amer >60 Normal >60 [facility] Comment on above: Performed By: #### U AXMAO #### [facility] [address] [place] [address] GFR,non Amer >60 Normal >60 [facility] Comment on above: Performed By: #### U AXMAO #### [facility] [address] [place] [address] Glucose mass conc 105 mg/dL High 70-99 [facility] Comment on above: Performed By: #### U AX UMBETHANY #### [facility] [address] [place] [address] Potassium molar conc 3.9 mmol/L Normal 3.7-5.3 [facility] Comment on above: Performed By: #### U AXMAO #### [facility] [address] [place] [address]396 Sodium molar conc 137 mmol/L Normal 135-144 [facility] Comment on above: Performed By: #### U AXMAO #### [facility] [address] [place] [address]10[address] Urea nitrogen mass conc 12 mg/dL Normal 6-20 [facility] Comment on above: Performed By: #### U AXMAO #### [facility] [address] [place] [address]18 BUN/CRE Ratio NOT REPORTED Normal 9-20 [facility] Comment on above: Performed By: #### U AXDEMIICAKimmie #### [facility] [address] [place] [address] Staging: NOT REPORTED Normal [facility] Comment on above: Performed By: #### U AX UMICAKimmie #### [facility] [address] [place] [address] CBC with Diffon 06-10-2018 Abs. Basophil 0.06 k/uL Normal 0.00-0.20 [facility] Comment on above: Performed By: #### U AXMAO #### [facility] [employer] [address] [place] [address] Abs.Imm.Granulocyte 0.04 k/uL Normal 0.00-0.30 [facility] Comment on above: Performed By: #### U AXMAO #### [facility] [employer] [address] [place] [address]183 Abs.Neutrophil (Seg) 5.70 k/uL Normal 1.50-8.10 [facility] Comment on above: Performed By: #### U AXMAO #### [facility] [employer] [address] [place] [address] Basophils/100 WBC (Bld) 1 % Normal 0-2 [facility] Comment on above: Performed By: #### U AXMAO #### [facility] [address] [place] [address]69 Eosinophils #/vol (Bld) 0.29 10*3/uL Normal 0.00-0.44 [facility] Comment on above: Performed By: #### U AXMAO #### [facility] [facility] [address] [place] [address] Eosinophils/100 WBC (Bld) 3 % Normal 1-4 [facility] Comment on above: Performed By: #### U AXMAO #### [facility] [facility] [address] [place] [address]73 Erythrocyte distribution width Ratio (RBC) 11.9 % Normal 11.8-14.4 [facility] Comment on above: Performed By: #### U AXMAO #### [facility] [facility] [address] [place] [address] 13553 Hematocrit Volume Fraction (Bld) 42.5 % Normal 36.3-47.1 [facility] Comment on above: Performed By: #### U AXMAO #### [facility] [facility] [address] [place] [address]46 Hemoglobin mass conc (Bld) 14.0 g/dL Normal 11.9-15.1 [facility] Comment on above: Performed By: #### U AXMAO #### [facility] [facility] [address] [place] [address]17 Immature granulocytes #/vol (Bld) 0 % Normal 0 [facility] Comment on above: Performed By: #### U AXMAO #### [facility] [facility] [address] [place] [address]676 Lymphocytes #/vol (Bld) 2.41 10*3/uL Normal 1.10-3.70 [facility] Comment on above: Performed By: #### U AXMAO #### [facility] [facility] [address] [place] [address]15 Lymphocytes/100 WBC (Bld) 26 % Normal 24-43 [facility] Comment on above: Performed By: #### U AXMAO #### [facility] [facility] [address] [place] [address]8620 MCH Entitic mass (RBC) 30.8 pg Normal 25.2-33.5 [facility] Comment on above: Performed By: #### U AXDEMIICAKimmie #### [facility] [facility] [address] [place] [address]606 MCHC mass conc (RBC) 32.9 g/dL Normal 28.4-34.8 [facility] Comment on above: Performed By: #### U AX UMICAO #### [facility] [address] [place] [address]602 MCV Entitic volume (RBC) 93.4 fL Normal 82.6-102.9 [facility] Comment on above: Performed By: #### U AXMAO #### [address] [address] Monocytes #/vol (Bld) 0.86 10*3/uL Normal 0.10-1.20 [facility] Comment on above: Performed By: #### U AXMAO #### [address] [address] Monocytes/100 WBC (Bld) 9 % Normal 3-12 [facility] Comment on above: Performed By: #### U AXMAO #### [address] [address] Neutrophil (Seg) 61 % Normal 36-65 [facility] Comment on above: Performed By: #### U AXMAO #### [address] [address] NRBC Automated 0.0 per 100 WBC Normal 0.0 [facility] Comment on above: Performed By: #### U AXMAO #### [address] [address] Platelet mean volume Entitic volume (Bld) 9.9 fL Normal 8.1-13.5 [facility] Comment on above: Performed By: #### U AXMAO #### [address] [address] Platelets #/vol (Bld) 410 10*3/uL Normal 138-453 [facility] Comment on above: Performed By: #### U AXDEMIICAO #### [address] [address] RBC #/vol (Bld) 4.55 10*6/uL Normal 3.95-5.11 [facility] Comment on above: Performed By: #### U AX, UMICAO #### [facility] [employer] [address] [place] [address]26 WBC #/vol (Bld) 9.4 10*3/uL Normal 3.5-11.3 [facility] Comment on above: Performed By: #### U AX, UMICAO #### [facility] [address] [place] [address]57 Auto Diff Performed NOT REPORTED Normal [facility] Comment on above: Performed By: #### U AX, UMICAO #### [facility] [employer] [address] [place] [address]64 Platelets #/vol (Bld) NOT REPORTED Normal [facility] Comment on above: Performed By: #### U AX, UMICAO #### [facility] [address] [place] [address]32 RBC morphology finding Nom (Bld) NOT REPORTED Normal [facility] Comment on above: Performed By: #### U AX, UMICAO #### [facility] [address] [place] [address]71 WBC Morphology NOT REPORTED Normal [facility] Comment on above: Performed By: #### U AX, UMICAO #### [facility] [facility] [address] [place] [address] ABDOMEN PELVIS WO CONTRAS Ton 06-10-2018 [...] MD 06/10/18 Final result Normal [facility] HCG Screen, Bloodon 06-11-19 19 HCG Qn Negative Normal NEG [facility] Comment on above: Result Comment: Spec imens with hCG levels near the threshold of the test (25 mIU/mL) may give a negative or indeterminate result. In such cases, another test should be performed with a new specimen in 48-72 hours. If early is suspected clinically in this setting, correlation with quantitative serum b-hCG level is suggested. [facility] has confirmed the use of plasma for this test. This has not been cleared or approved by the U.S. Food and Drug Administration. The FDA has determined that such clearance is not necessary. Performed By: #### MAO MASTERS #### [facility] [address] [place] [address] Cult,Urine,CCon 06-09-2018 Cult,Urine,CC Specimen Description .CLEAN CATCH URINE Special Requests NOT REPORTED Culture NO SIGNIFICANT GROWTH Report Status FINAL 06/09/2018 Normal [facility] Comment on above: Performed By: #### MAO MASTERS #### [facility] [address] [place] [address] Drug Scr, Abuse, Uron 2018 Amphetamine(s),Ur Positive Abnormal NEG [facility] Comment on above: Result Comment: (Positive cutoff 1000 ng/mL) Performed By: #### U AX, UMICAO #### [facility] [address] [place] [address] Barbiturate(s),Ur Negative Normal NEG [facility] Comment on above: Result Comment: (Positive cutoff 200 ng/mL) Performed By: #### U AX, UMICAO #### [facility] [address] [place] [address]489 Base excess Calculated molar conc (Bld) Negative Normal NEG [facility] Comment on above: Result Comment: (Positive cutoff 300 ng/mL) Performed By: #### U AX, UMICAO #### [facility] [address] [place] [address]92 Benzodiazepine(s) Negative Normal NEG [facility] Comment on above: Result Comment: (Positive cutoff 200 ng/mL) Performed By: #### U AX, UMICAO #### [employer] [address] [place] [address] 29263 Cannabinoid(s),Ur Negative Normal NEG [facility] Comment on above: Result Comment: (Positive cutoff 50 ng/mL) Performed By: #### U AX, UMICAO #### [facility] [address] [place] [address] 49084 Interpretive Info Assay provides medical screening only. The absence of expected drug(s) and/or Normal [facility] Comment on above: Result Comment: meta bolite(s) may indicate diluted or adulterated urine, limitations of testing or timing of collection. Testing for legal purposes should be confirmed by another method. To request confirmation of test result, please call the lab within 7 days of sample submission. Performed By: #### U AX, UMICAO #### [facility] [address] [place] [address] 95700 Methadone Ql (U) Negative Normal NEG [facility] Comment on above: Result Comment: (Positive cutoff 300 ng/mL) Performed By: #### U AXMAO #### [facility] [address] [place] [address] 53068 Opiate(s), Ur Negative Normal NEG [facility] Comment on above: Result Comment: (Positive cutoff 300 ng/mL) Performed By: #### U AXDEMIICAO #### [facility] [employer] [address] [place] [address] 21490 Oxycodone, Urine Negative Normal NEG [facility] Comment on above: Result Comment: (Positive cutoff 100 ng/mL) Performed By: #### U AXMAO #### [facility] [employer] [address] [place] [address] 15155 Phencyclidine, Ur Negative Normal NEG [facility] Comment on above: Result Comment: (Positive cutoff 25 ng/mL) Performed By: #### U AXMAO #### [facility] [employer] [address] [place] [address] 89101 Buprenorphrine, Ur NOT REPORTED Normal NEG [facility] Comment on above: Performed By: #### U AXMAO #### [facility] [employer] [address] [place] [address] 01114 MDMA, Urine NOT REPORTED Normal NEG [facility] Comment on above: Performed By: #### U AXMAO #### [facility] [employer] [address] [place] [address] 82228 Methamphetamine, Ur NOT REPORTED Normal NEG [facility] Comment on above: Performed By: #### U AXMAO #### [facility] [address] [place] [address] 72168 Protein mass conc (U) NOT REPORTED Normal NEG [facility] Comment on above: Performed By: #### U AXDEMIICAKimmie #### [facility] [address] [place] [address] 84335 Tricyclic antidepressants Screen Ql (U) NOT REPORTED Normal NEG [facility] Comment on above: Performed By: #### U MAO ROSARIO #### [facility] [address] [place] [address] 70832 UA w/Reflex Cultureon 2018 Bilirubin.direct mass conc Negative Abnormal NEG [facility] Comment on above: Performed By: #### MAO MASTERS #### [facility] [address] [place] [address] 13853 Comment Culture ordered based on defined criteria. Normal [facility] Comment on above: Performed By: #### MAO MASTERS #### [facility] [address] [place] [address] 02615 Acetoacetic Acid,Ur Negative Normal NEG [facility] Comment on above: Performed By: #### MAO MASTERS #### [employer] [address] [place] [address] 44711 Color Nom (U) DARK YELLOW Abnormal YEL [facility] Comment on above: Performed By: #### MAO MASTERS #### [facility] [address] [place] [address] 21001 Glucose mass conc Negative Normal NEG [facility] Comment on above: Performed By: #### U MAO ROSARIO #### [facility] [address] [place] [address] 43192 Hemoglobin mass conc (Bld) TRACE Abnormal NEG [facility] Comment on above: Performed By: #### U MAO ROSARIO #### [facility] [address] [place] [address] 41257 Leuckocyte Esterase MODERATE Abnormal NEG [facility] Comment on above: Performed By: #### U MAO ROSARIO #### [employer] [address] [place] [address] 39762 Nitrite,Ur Positive Abnormal NEG [facility] Comment on above: Performed By: #### U AXMAO #### [facility] [address] [place] [address] 58215 PH,Ur 5.5 Normal 5.0-8.0 [facility] Comment on above: Performed By: #### U AXMAO #### [facility] [address] [place] [address] 71084 Protein mass conc Negative Normal NEG [facility] Comment on above: Performed By: #### U AXMAO #### [facility] [address] [place] [address] 66533 Spec. [place],Ur 1.021 Normal 1.005-1.030 [facility] Comment on above: Performed By: #### U AXMAO #### [facility] [address] [place] [address] 25547 Turbidity CLOUDY Abnormal CLEAR [facility] Comment on above: Performed By: #### U AXMAO #### [facility] [address] [place] [address] 49614 Urobilinogen,Ur Normal Normal NORM [facility] Comment on above: Performed By: #### U AXMAO #### [facility] [address] [place] [address] 08829 Urinalysis,Microon 9 ----- Normal [facility] Comment on above: Performed By: #### U AXMAO #### [facility] [address] [place] [address] 75317 Bacteria LM.HPF #/area (Urine sed) FEW Abnormal NONE [facility] Comment on above: Performed By: #### U AXMAO #### [facility] [address] [place] [address] 47271 Epithelial cells LM.HPF #/area (Urine sed) 50 TO 100 Normal 0-5 [facility] Comment on above: Performed By: #### U AXMAO #### [employer] [facility] [place] [address] Mucus Strands 2+ Abnormal NONE [facility] Comment on above: Performed By: #### U AXMAO #### [employer] [address] [place] [address] 56100 RBC #/vol (U) None Normal 0-2 [facility] Comment on above: Performed By: #### U AXMAO #### [facility] [address] [place] [address] 44833 WBC #/vol (U) 50 TO 100 Normal 0-5 [facility] Comment on above: Performed By: #### U AXMAO #### [employer] [address] [place] [address] 58270 Amorphous sediment LM Ql (Urine sed) NOT REPORTED Normal NONE [facility] Comment on above: Performed By: #### U AXMAO #### [facility] [address] [place] [address] 80500 Casts LM.LPF #/area (Urine sed) NOT REPORTED Normal 0-2 [facility] Comment on above: Performed By: #### U AXMAO #### [facility] [address] [place] [address] 88055 Crystals LM Nom (Urine sed) NOT REPORTED Normal NONE [facility] Comment on above: Performed By: #### U AXMAO #### [employer] [facility] [place] [address] Epithelial, Renal NOT REPORTED Normal 0 [facility] Comment on above: Performed By: #### U AXMAO #### [employer] [facility] [place] [address] Other Observations NOT REPORTED Normal NREQ [facility] Comment on above: Performed By: #### U AXMAO #### [facility] [place] [address] Trichomonas NOT REPORTED Normal NONE [facility] Comment on above: Performed By: #### U AXMAO #### [facility] [employer] [address] [place] [address] 96537 Yeast LM Ql (Urine sed) NOT REPORTED Normal NONE [facility] Comment on above: Performed By: #### U AXMAO #### [facility] [employer] [address] [place] [address] 63114 HCG, ,Urineon 06-04 HCG.beta subunit ( test) Ql (U) Negative Normal NEG [facility] Comment on above: Result Comment: Spec imens with hCG levels near the threshold of the test (25 mIU/mL) may give a negative or indeterminate result. In such cases, another test should be performed with a new specimen in 48-72 hours. If early is suspected clinically in this setting, correlation with quantitative serum b-hCG level is suggested. Performed By: #### U AXMAO #### [facility] [employer] [address] [place] [address] 05356 Urinalysis w/ Microon 2018 ----- Normal [facility] Comment on above: Performed By: #### U AXMAO #### [facility] [address] [place] [address] 84051 Crystals LM Nom (Urine sed) CALCIUM OXALATE Abnormal NONE [facility] Comment on above: Result Comment: FEW Performed By: #### U AXMAO #### [facility] [employer] [address] [place] [address] 24922 Epithelial cells LM.HPF #/area (Urine sed) 0 TO 2 Normal 0-5 [facility] Comment on above: Performed By: #### U AX UMICAO #### [facility] [employer] [address] [place] [address] 14238 Mucus Strands 1+ Abnormal NONE [facility] Comment on above: Performed By: #### U AX, UMICAO #### [facility] [employer] [address] [place] [address] 64410 RBC #/vol (U) 0 TO 2 Normal 0-2 [facility] Comment on above: Performed By: #### U AX UMICAO #### [facility] [employer] [address] [place] [address] 65923 WBC #/vol (U) 2 TO 5 Normal 0-5 [facility] Comment on above: Performed By: #### U AX, UMICAO #### [facility] [employer] [address] [place] [address] 10481 Acetoacetic Acid,Ur TRACE Abnormal NEG [facility] Comment on above: Performed By: #### U AX, UMICAO #### [facility] [employer] [address] [place] [address] 74944 Bilirubin, SemiQt,Ur Negative Normal NEG [facility] Comment on above: Performed By: #### U AX UMICAO #### [facility] [employer] [address] [place] [address] 05429 Color Nom (U) YELLOW Normal YEL [facility] Comment on above: Performed By: #### U AX UMICAO #### [facility] [employer] [address] [place] [address] 40325 Glucose,Semi-qnt,Ur Negative Normal NEG [facility] Comment on above: Performed By: #### U AX, UMICAO #### [facility] [employer] [address] [place] [address] 44551 Hemoglobin, Ur MODERATE Abnormal NEG [facility] Comment on above: Performed By: #### U AX, UMICAO #### [facility] [employer] [address] [place] [address] 38324 Leuckocyte Esterase MODERATE Abnormal NEG [facility] Comment on above: Performed By: #### U AX, UMICAO #### [facility] [employer] [address] [place] [address] 20957 Nitrite,Ur Negative Normal NEG [facility] Comment on above: Performed By: #### U AX, UMICAO #### [facility] [employer] [address] [place] [address] 71353 PH,Ur 5.5 Normal 5.0-8.0 [facility] Comment on above: Performed By: #### U AX, UMICAO #### [facility] [employer] [address] [place] [address] 09682 Protein mass conc (U) TRACE Abnormal NEG [facility] Comment on above: Performed By: #### U AX, UMICAO #### [facility] [employer] [address] [place] [address] 69907 Spec. [place],Ur 1.029 Normal 1.005-1.030 [facility] Comment on above: Performed By: #### U AX, UMICAO #### [facility] [employer] [address] [place] [address] 79322 Turbidity TURBID Abnormal CLEAR [facility] Comment on above: Performed By: #### U AX, UMICAO #### [facility] [employer] [address] [place] [address] 36870 Urobilinogen,Ur Normal Normal NORM [facility] Comment on above: Performed By: #### U AX, UMICAO #### [facility] [employer] [address] [place] [address] 26033 Amorphous sediment LM Ql (Urine sed) NOT REPORTED Normal NONE [facility] Comment on above: Performed By: #### U AX, UMICAO #### [address] [address] Bacteria LM.HPF #/area (Urine sed) NOT REPORTED Normal NONE [facility] Comment on above: Performed By: #### U AX, UMICAO #### [address] [address]262 Casts LM.LPF #/area (Urine sed) NOT REPORTED Normal 0-2 [facility] Comment on above: Performed By: #### U AX, UMICAO #### [address] [address]58 Epithelial, Renal NOT REPORTED Normal 0 [facility] Comment on above: Performed By: #### U AX, UMICAO #### [address] 86734 Other Observations NOT REPORTED Normal NREQ [facility] Comment on above: Performed By: #### U AX, UMICAO #### [address] 68480 Trichomonas NOT REPORTED Normal NONE [facility] Comment on above: Performed By: #### U AX, UMICAO #### [address] 92009 Yeast LM Ql (Urine sed) NOT REPORTED Normal NONE [facility] Comment on above: Performed By: #### U AX, UMICAO #### [address] [address]67 CBC with Diffon 12-06-2017 Abs. Basophil 0.04 k/uL Normal 0.00-0.20 [facility] Comment on above: Performed By: #### C P, TSH, FT4, CDP, LIPRF #### [address] [address]48 Abs.Imm.Granulocyte 0.04 k/uL Normal 0.00-0.30 [facility] Comment on above: Performed By: #### C P, TSH, FT4, CDP, LIPRF #### [address] 88680 Abs.Neutrophil (Seg) 4.84 k/uL Normal 1.50-8.10 [facility] Comment on above: Performed By: #### C P, TSH, FT4, CDP, LIPRF #### [address] [address]266 Basophils/100 WBC (Bld) 1 % Normal 0-2 [facility] Comment on above: Performed By: #### C P, TSH, FT4, CDP, LIPRF #### [address] [address]5670 Eosinophils #/vol (Bld) 0.33 10*3/uL Normal 0.00-0.44 [facility] Comment on above: Performed By: #### C P, TSH, FT4, CDP, LIPRF #### [address] 35832 Eosinophils/100 WBC (Bld) 4 % Normal 1-4 [facility] Comment on above: Performed By: #### C P, TSH, FT4, CDP, LIPRF #### [address] 9[address]37 Erythrocyte distribution width Ratio (RBC) 12.4 % Normal 11.8-14.4 [facility] Comment on above: Performed By: #### C P, TSH, FT4, CDP, LIPRF #### [address] 77517 Hematocrit Volume Fraction (Bld) 41.3 % Normal 36.3-47.1 [facility] Comment on above: Performed By: #### C P, TSH, FT4, CDP, LIPRF #### [address] 75828 Hemoglobin mass conc (Bld) 13.8 g/dL Normal 11.9-15.1 [facility] Comment on above: Performed By: #### C P, TSH, FT4, CDP, LIPRF #### [address] 06096 Immature granulocytes #/vol (Bld) 1 % High 0 [facility] Comment on above: Performed By: #### C P, TSH, FT4, CDP, LIPRF #### [address] [address]48 Lymphocytes #/vol (Bld) 2.64 10*3/uL Normal 1.10-3.70 [facility] Comment on above: Performed By: #### C P, TSH, FT4, CDP, LIPRF #### [address] [address]54 Lymphocytes/100 WBC (Bld) 30 % Normal 24-43 [facility] Comment on above: Performed By: #### C P, TSH, FT4, CDP, LIPRF #### [address] [address]36 MCH Entitic mass (RBC) 31.9 pg Normal 25.2-33.5 [facility] Comment on above: Performed By: #### C P, TSH, FT4, CDP, LIPRF #### [address] 21654 MCHC mass conc (RBC) 33.4 g/dL Normal 28.4-34.8 [facility] Comment on above: Performed By: #### C P, TSH, FT4, CDP, LIPRF #### [address] 83183 MCV Entitic volume (RBC) 95.6 fL Normal 82.6-102.9 [facility] Comment on above: Performed By: #### C P, TSH, FT4, CDP, LIPRF #### [address] 8[address]23 Monocytes #/vol (Bld) 0.90 10*3/uL Normal 0.10-1.20 [facility] Comment on above: Performed By: #### C P, TSH, FT4, CDP, LIPRF #### [address] [address]652 Monocytes/100 WBC (Bld) 10 % Normal 3-12 [facility] Comment on above: Performed By: #### C P, TSH, FT4, CDP, LIPRF #### [address] [address]492 Neutrophil (Seg) 54 % Normal 36-65 [facility] Comment on above: Performed By: #### C P, TSH, FT4, CDP, LIPRF #### [address] 17142 NRBC Automated 0.0 per 100 WBC Normal 0.0 [facility] Comment on above: Performed By: #### C P, TSH, FT4, CDP, LIPRF #### [address] 78467 Platelet mean volume Entitic volume (Bld) 9.4 fL Normal 8.1-13.5 [facility] Comment on above: Performed By: #### C P, TSH, FT4, CDP, LIPRF #### [address] [address]265 Platelets #/vol (Bld) 374 10*3/uL Normal 138-453 [facility] Comment on above: Performed By: #### C P, TSH, FT4, CDP, LIPRF #### [address] [address]49 RBC #/vol (Bld) 4.32 10*6/uL Normal 3.95-5.11 [facility] Comment on above: Performed By: #### C P, TSH, FT4, CDP, LIPRF #### [address] 9[address]88 WBC #/vol (Bld) 8.8 10*3/uL Normal 3.5-11.3 [facility] Comment on above: Performed By: #### C P, TSH, FT4, CDP, LIPRF #### [address] [address]683 Auto Diff Performed NOT REPORTED Normal [facility] Comment on above: Performed By: #### C P, TSH, FT4, CDP, LIPRF #### [address] [address]161 Platelets #/vol (Bld) NOT REPORTED Normal [facility] Comment on above: Performed By: #### C P, TSH, FT4, CDP, LIPRF #### [address] 35965 RBC morphology finding Nom (Bld) NOT REPORTED Normal [facility] Comment on above: Performed By: #### C P, TSH, FT4, CDP, LIPRF #### [address] 9[address]58 WBC Morphology NOT REPORTED Normal [facility] Comment on above: Performed By: #### C P, TSH, FT4, CDP, LIPRF #### [address] [address] Comp Metabolic Profon 2017 (cont.) Normal [facility] Comment on above: Result Comment: Aver age GFR for 30-39 years old: 107 mL/min/1.73sq m Chronic Kidney Disease: <60 mL/min/1.73sq m Kidney failure: <15 mL/min/1.73sq m eGFR calculated using average adult body mass. Additional eGFR calculator available at: http://www.[employer]ontoForms/multiple_crcl_2012.htm Performed By: #### C P, TSH, FT4, CDP, LIPRF #### [address] [address] Albumin mass conc 4.3 g/dL Normal 3.5-5.2 [facility] Comment on above: Performed By: #### C P, TSH, FT4, CDP, LIPRF #### [address] [address]48 Albumin/Globulin mass ratio 1.5 {ratio} Normal 1.0-2.5 [facility] Comment on above: Performed By: #### C P, TSH, FT4, CDP, LIPRF #### [address] [address] Alkaline Phos 64 U/L Normal 35-104 [facility] Comment on above: Performed By: #### C P, TSH, FT4, CDP, LIPRF #### [address] [address] ALT enzyme act/vol 19 U/L Normal 5-33 [facility] Comment on above: Performed By: #### C P, TSH, FT4, CDP, LIPRF #### [address] [address]139 Anion gap molar conc 10 mmol/L Normal 9-17 [facility] Comment on above: Performed By: #### C P, TSH, FT4, CDP, LIPRF #### [address] 26749 AST enzyme act/vol 15 U/L Normal <32 [facility] Comment on above: Performed By: #### C P, TSH, FT4, CDP, LIPRF #### [address] [address] Bilirubin Ql (U) 0.26 mg/dL Low 0.3-1.2 [facility] Comment on above: Performed By: #### C P, TSH, FT4, CDP, LIPRF #### [address] [address] Calcium mass conc 9.4 mg/dL Normal 8.6-10.4 [facility] Comment on above: Performed By: #### C P, TSH, FT4, CDP, LIPRF #### [address] [address] Chloride molar conc 105 mmol/L Normal 98-107 [facility] Comment on above: Performed By: #### C P, TSH, FT4, CDP, LIPRF #### [address] [address]26 CO2 molar conc 25 mmol/L Normal 20-31 [facility] Comment on above: Performed By: #### C P, TSH, FT4, CDP, LIPRF #### [address] [address] Creatinine mass conc 0.79 mg/dL Normal 0.50-0.90 [facility] Comment on above: Performed By: #### C P, TSH, FT4, CDP, LIPRF #### [address] [address] GFR, Amer >60 Normal >60 [facility] Comment on above: Performed By: #### C P, TSH, FT4, CDP, LIPRF #### [address] [address] GFR,non Amer >60 Normal >60 [facility] Comment on above: Performed By: #### C P, TSH, FT4, CDP, LIPRF #### [facility] [employer] [address] [place] [address] 37345 Glucose mass conc 87 mg/dL Normal 70-99 [facility] Comment on above: Performed By: #### C P, TSH, FT4, CDP, LIPRF #### [facility] [employer] [address] [place] [address] 73442 Potassium molar conc 4.4 mmol/L Normal 3.7-5.3 [facility] Comment on above: Performed By: #### C P, TSH, FT4, CDP, LIPRF #### [facility] [employer] [address] [place] [address] 24155 Protein mass conc 7.1 g/dL Normal 6.4-8.3 [facility] Comment on above: Performed By: #### C P, TSH, FT4, CDP, LIPRF #### [facility] [employer] [address] [place] [address] 88436 Sodium molar conc 140 mmol/L Normal 135-144 [facility] Comment on above: Performed By: #### C P, TSH, FT4, CDP, LIPRF #### [address] [address] Urea nitrogen mass conc 13 mg/dL Normal 6-20 [facility] Comment on above: Performed By: #### C P, TSH, FT4, CDP, LIPRF #### [facility] [employer] [address] [place] [address] 65862 BUN/CRE Ratio NOT REPORTED Normal -20 [facility] Comment on above: Performed By: #### C P, TSH, FT4, CDP, LIPRF #### [address] [address] Staging: NOT REPORTED Normal [facility] Comment on above: Performed By: #### C P, TSH, FT4, CDP, LIPRF #### [address] [address] Lipid Prof, Fastingon 2017 Cholesterol in HDL mass conc 56 mg/dL Normal >40 [facility] Comment on above: Result Comment: HDL Guidelines: <40 Undesirable 40-59 Borderline >59 Desirable Performed By: #### C P, TSH, FT4, CDP, LIPRF #### [address] [address] Cholesterol in LDL mass conc 107 mg/dL Normal 0-130 [facility] Comment on above: Result Comment: LDL Guidelines: <100 Desirable 100-129 Near to/above Desirable 130-159 Borderline >159 Undesirable Direct (measured) LDL and calculated LDL are not interchangeable tests. Performed By: #### C P, TSH, FT4, CDP, LIPRF #### [address] [address] Cholesterol mass conc 179 mg/dL Normal <200 [facility] Comment on above: Result Comment: Cholesterol Guidelines: <200 Desirable 200-240 Borderline >240 Undesirable Performed By: #### C P, TSH, FT4, CDP, LIPRF #### [address] [address] Cholesterol.total/Cho lesterol in HDL mass ratio 3.2 {ratio} Normal <5 [facility] Comment on above: Performed By: #### C P, TSH, FT4, CDP, LIPRF #### [address] [address] Triglyceride,Fasting 82 mg/dL Normal <150 [facility] Comment on above: Result Comment: Triglyceride Guidelines: <150 Desirable 150-199 Borderline 200-499 High >499 Very high Based on AHA Guidelines for fasting triglyceride, November 2011. Performed By: #### C P, TSH, FT4, CDP, LIPRF #### [address] [address] Cholesterol in VLDL mass conc NOT REPORTED Normal 03-07 [facility] Comment on above: Performed By: #### C P, TSH, FT4, CDP, LIPRF #### [address] [address] Thyroid Stim. Horm.on 2017 Thyrotropin Qn 1.71 m[IU]/L Normal 0.30-5.00 [facility] Comment on above: Performed By: #### C P, TSH, FT4, CDP, LIPRF #### [address] [address] Thyroxine, Freeon 12-06-2017 Thyroxine, Free 1.06 ng/dL Normal 0.93-1.70 [facility] Comment on above: Performed By: #### C P, TSH, FT4, CDP, LIPRF #### [address] [address] Cult,Urineon 08-09-2017 Cult,Urine Specimen Description .CLEAN CATCH URINE Special Requests NOT REPORTED Culture ESCHERICHIA COLI >[id number] CFU/ML Report Status FINAL 08/08/2017 SUSCEPTIBILITY Organism [...] Piperacillin/Tazobac richards <=4 SUSCEPTIBLE Normal [facility] Comment on above: Performed By: #### U RC #### [address] [address] Urinalysis w/ Microon 2017 ----- Normal [facility] Comment on above: Performed By: #### U AMIC #### [address] [address] Acetoacetic Acid,Ur Negative Normal NEG [facility] Comment on above: Performed By: #### U AMIC #### [address] [address] Bacteria LM.HPF #/area (Urine sed) MANY Abnormal NONE [facility] Comment on above: Performed By: #### U AMIC #### [address] [address] Bilirubin, SemiQt,Ur Negative Normal NEG [facility] Comment on above: Performed By: #### U AMIC #### [address] [address] Casts LM.LPF #/area (Urine sed) 0 TO 2 HYALINE Normal 0-8 [facility] Comment on above: Result Comment: Refe rence range defined for non-centrifuged specimen. Performed By: #### U AMIC #### [address] [address] Color Nom (U) YELLOW Normal YEL [facility] Comment on above: Performed By: #### U AMIC #### [address] [address] Epithelial cells LM.HPF #/area (Urine sed) 2 TO 5 Normal 0-5 [facility] Comment on above: Performed By: #### U AMIC #### [address] [address] Glucose,Semi-qnt,Ur Negative Normal NEG [facility] Comment on above: Performed By: #### U AMIC #### [address] [place] [address] Hemoglobin, Ur TRACE Abnormal NEG [facility] Comment on above: Performed By: #### U AMIC #### [address] [address] Leuckocyte Esterase LARGE Abnormal NEG [facility] Comment on above: Performed By: #### U AMIC #### [address] [address] Nitrite,Ur Negative Normal NEG [facility] Comment on above: Performed By: #### U AMIC #### [address] [address] PH,Ur 5.5 Normal 5.0-8.0 [facility] Comment on above: Performed By: #### U AMIC #### [address] [address] Protein mass conc (U) TRACE Abnormal NEG [facility] Comment on above: Performed By: #### U AMIC #### [address] [address] RBC #/vol (U) 5 TO 10 Normal 0-4 [facility] Comment on above: Result Comment: Refe rence range defined for non-centrifuged specimen. Performed By: #### U AMIC #### [address] [address] Spec. [place],Ur 1.017 Normal 1.005-1.030 [facility] Comment on above: Performed By: #### U AMIC #### [address] [address] Turbidity CLOUDY Abnormal CLEAR [facility] Comment on above: Performed By: #### U AMIC #### [address] [address] Urobilinogen,Ur Normal Normal NORM [facility] Comment on above: Performed By: #### U AMIC #### [address] [address] WBC #/vol (U) TOO NUMEROUS TO COUNT Normal 0-5 [facility] Comment on above: Performed By: #### U AMIC #### [address] [address] Amorphous sediment LM Ql (Urine sed) NOT REPORTED Normal NONE [facility] Comment on above: Performed By: #### U AMIC #### [address] [address] Crystals LM Nom (Urine sed) NOT REPORTED Normal NONE [facility] Comment on above: Performed By: #### U AMIC #### [address] [address] Epithelial, Renal NOT REPORTED Normal 0 [facility] Comment on above: Performed By: #### U AMIC #### [address] [address] Mucus Strands NOT REPORTED Normal NONE [facility] Comment on above: Performed By: #### U AMIC #### [facility] [employer] [address] [place] [address] Other Observations NOT REPORTED Normal NREQ [facility] Comment on above: Performed By: #### U AMIC #### [facility] [employer] [address] [place] [address] Trichomonas NOT REPORTED Normal NONE [facility] Comment on above: Performed By: #### U AMIC #### [facility] [employer] [address] [place] [address] Yeast LM Ql (Urine sed) NOT REPORTED Normal [facility] Comment on above: Performed By: #### U AMIC #### [facility] [address] [place] [address] Cult,Urineon 08-04-2017 Cult,Urine Specimen Description .URINE Special Requests NOT REPORTED Culture ESCHERICHIA COLI >[id number] CFU/ML Report Status FINAL 08/04/2017 SUSCEPTIBILITY Organism [...] Piperacillin/Tazobac richards <=4 SUSCEPTIBLE Normal [facility] Comment on above: Performed By: #### U RC #### [facility] [employer] [address] [place] [address] UA w/Reflex Cultureon 2017 Acetoacetic Acid,Ur TRACE Abnormal NEG [facility] Comment on above: Performed By: #### MAO MASTERS #### [facility] [employer] [address] [place] [address] Bilirubin.direct mass conc Negative Normal NEG [facility] Comment on above: Performed By: #### U AXMAO #### [facility] [address] [place] [address] Color Nom (U) YELLOW Normal YEL [facility] Comment on above: Performed By: #### U AXMAO #### [facility] [address] [place] [address] Glucose mass conc Negative Normal NEG [facility] Comment on above: Performed By: #### U AXMAO #### [employer] [address] [place] [address] Hemoglobin mass conc (Bld) TRACE Abnormal NEG [facility] Comment on above: Performed By: #### MAO MASTERS #### [facility] [address] [place] [address] Leuckocyte Esterase MODERATE Abnormal NEG [facility] Comment on above: Performed By: #### MAO MASTERS #### [facility] [address] [place] [address] Nitrite,Ur Negative Normal NEG [facility] Comment on above: Performed By: #### MAO MASTERS #### [facility] [employer] [address] [place] [address] PH,Ur 5.0 Normal 5.0-8.0 [facility] Comment on above: Performed By: #### MAO MASTERS #### [facility] [employer] [address] [place] [address] Protein mass conc TRACE Abnormal NEG [facility] Comment on above: Performed By: #### MAO MASTERS #### [facility] [employer] [address] [place] [address] Spec. [place],Ur 1.024 Normal 1.005-1.030 [facility] Comment on above: Performed By: #### MAO MASTERS #### [facility] [address] [place] [address] Turbidity CLOUDY Abnormal CLEAR [facility] Comment on above: Performed By: #### MAO MASTERS #### [facility] [address] [place] [address] Urobilinogen,Ur Normal Normal NORM [facility] Comment on above: Performed By: #### MAO MASTERS #### [facility] [address] [place] [address] Comment NOT REPORTED Normal [facility] Comment on above: Performed By: #### U AXMAO #### [facility] [address] [place] [address] Urinalysis,Microon 8 ----- Normal [facility] Comment on above: Performed By: #### U AXMAO #### [facility] [address] [place] [address] Bacteria LM.HPF #/area (Urine sed) MANY Abnormal NONE [facility] Comment on above: Performed By: #### U AXMAO #### [facility] [address] [place] [address] Casts LM.LPF #/area (Urine sed) 10 TO 20 HYALINE Normal 0-8 [facility] Comment on above: Result Comment: Refe rence range defined for non-centrifuged specimen. Performed By: #### U AXMAO #### [facility] [employer] [address] [place] [address] Epithelial cells LM.HPF #/area (Urine sed) 2 TO 5 Normal 0-5 [facility] Comment on above: Performed By: #### U AXMAO #### [facility] [employer] [address] [place] [address] RBC #/vol (U) 10 TO 20 Normal 0-4 [facility] Comment on above: Result Comment: Refe rence range defined for non-centrifuged specimen. Performed By: #### U AXMAO #### [facility] [employer] [address] [place] [address] WBC #/vol (U) TOO NUMEROUS TO COUNT Normal 0-5 [facility] Comment on above: Performed By: #### U AXMAO #### [facility] [address] [place] [address] Amorphous sediment LM Ql (Urine sed) NOT REPORTED Normal NONE [facility] Comment on above: Performed By: #### U AXMAO #### [facility] [address] [place] [address] Crystals LM Nom (Urine sed) NOT REPORTED Normal NONE [facility] Comment on above: Performed By: #### U AXMAO #### [facility] [address] [place] [address] Epithelial, Renal NOT REPORTED Normal 0 [facility] Comment on above: Performed By: #### U AXMAO #### [facility] [employer] [address] [place] [address] Mucus Strands NOT REPORTED Normal NONE [facility] Comment on above: Performed By: #### U AXMAO #### [facility] [employer] [address] [place] [address] Other Observations NOT REPORTED Normal NREQ [facility] Comment on above: Performed By: #### U AXMAO #### [facility] [employer] [address] [place] [address] Trichomonas NOT REPORTED Normal NONE [facility] Comment on above: Performed By: #### U AXMAO #### [facility] [employer] [address] [place] [address] Yeast LM Ql (Urine sed) NOT REPORTED Normal NONE [facility] Comment on above: Performed By: #### U AXMAO #### [facility] [employer] [address] [place] [address] Encounters Encounter Date Encounter Type Care Provider Facility Start: 08-12-2024 ambulatory Jaylen Mac acility:[facility] Start: 07-29-2024 End: 07-29-2024 Emergency department patient visit Alishalucienjeovanny Barton [facility] Start: 07-26-2024 End: 07-27-2024 Emergency department patient visit Nirmala Moser [facility] Start: 08-13-2021 End: 08-14-[address] DOCTOR REYNAGA Facility:[facility] Start: 10-14-2020 End: 10-15-2020 ambulatory ARLENE GARRETT Facility:[facility] Start: 09-03-2020 End: 09-04-2020 ambulatory [facility]ING [facility] Start: 09-03-2020 End: 09-03-2020 Subsequent hospital [facility] Start: 11-29-2019 End: 11-30-2019 ambulatory CHANNING [facility] Start: 11-29-2019 End: 11-29-2019 Subsequent hospital visit by physician [facility] Start: 11-15-2019 End: 11-16-2019 ambulatory CHANNING [facility] Start: 11-15-2019 End: 11-15-2019 Subsequent hospital visit by physician [facility] Start: 11-14-2019 End: 11-15-2019 ambulatory CHANNING [facility] Start: 11-14-2019 End: 11-14-2019 Subsequent hospital visit by physician [facility] Start: 12-30-2018 End: 01-02-2019 Evaluation and management of inpatient IRISH WOODSON Facility:[facility] Start: 06-10-2018 End: 06-11-2018 Emergency department patient visit JOSUÉ HECTOR [facility] Start: 06-08-2018 End: 06-08-2018 Emergency department patient visit TIMBO GOODWIN [facility] Start: 06-04-2018 End: 06-04-2018 Emergency department patient visit BALJEET LIVINGSTON [facility] Start: 03-21-2018 End: 03-21-2018 Emergency department patient visit ERVIN MARTINEZ [facility] Start: 12-06-2017 End: 12-07-2017 Patient encounter procedure KI PALAFOX [facility] Start: 08-07-2017 End: 08-07-2017 Emergency department patient visit ERVIN MARTINEZ [facility] Start: 08-03-2017 End: 08-03-2017 Emergency department patient visit ERVIN MARTINEZ [facility] Procedures Date Procedure Procedure Detail Performing Clinician Start: 09-03-2020 Antibody hiv-1&hiv-2 single result Channing Yin [employer] Work Phone: Start: 09-03-2020 Comprehensive metabo lic panel Channing Yin [employer] Work Phone: Start: 11-15-2019 Antibody hiv-1&hiv-2 single [...] 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 CHANNING YIN Start: 06-10-2018 Ct abdomen & [...] 08-03-2017 URINE RT [facility]lect[facility] & adenoidectomy age 11/> Astrit Shanti Plan of Treatment Date Care Activity Detail Author Start: 10-07-2020 Influenza vaccination Flu vaccine (# 1) [facility] [employer] Phone: Start: 10-08-2019 Influenza vaccination Flu vaccine (# 1) [place], [place] Start: 2005 Screening for malign ant neoplasm of cervix Cervical cancer screen [place], [place] Start: 06-22-2003 DTaP/Tdap/Td vaccine (1 - Tdap) DTaP/Tdap/Td vaccine (1 - Tdap) [place] Start: 06-22-1999 HIV screening HIV screen [place], [place] Start: 1996 COVID-19 Vaccine (1) COVID-19 Vaccin e (1) [facility] [employer] Phone: Start: 1990 Pneumococcal 0-64 ye ars Vaccine (1 of 1 - PPSV23) Pneumococcal 0-64 years Vaccine (1 of 1 - PPSV23) [place] Start: 1990 Pneumococcal 0-64 ye ars Vaccine (1 of 2 - PPSV23) Pneumococcal 0-64 years Vaccine (1 of 2 - PPSV23) [facility] [employer] Phone: Start: 1985 Varicella vaccine (1 of 2 - 2-dose childhood series) Varicella vaccine (1 of 2 - 2-dose childhood series) [place] End: 11-15-2019 Hepatitis C RNA, quantitative, PCR Hepatitis C RNA, quantitative, PCR Lab Routine Once for 1 Occurrences starting 11/15/2019 until 11/15/2019 [place] Comment on above: Once for 1 Occurrenc es starting 11/15/2019 until 11/15/2019 Hepatitis C RNA, quantitative, PCR Hepatitis C RNA, quantitative, PCR Lab Routine 11/15/2019 4:51 AM EDT [place], [place] Payers Date Payer Category Payer Private Health Insurance [id number] 2024 Unknown [id number] 2022 Self-pay 1984 Unknown [id number] 2.16.8 [id number] 1984 Unknown [id number] 2.16.8 [id number] 1984 Unknown [id number] 2.16.8 40.1.007462.3.579.2.175 1984 Unknown [id number] 2.16.8 40.1.949518.3.579.2.175 1984 Unknown [id number] 2.16.8 40.1.744977.3.579.2.175 1984 Unknown [id number] 2.16.8 40.1.073763.3.579.2.175 1984 Unknown [id number] 2.16.8 40.1.340942.3.579.2.175 1984 Unknown [id number] 2.16.8 40.1.671034.3.579.2.647 1984 Unknown [id number] 2.16.8 40.1.927459.3.579.2.173 1984 Unknown [id number] 2.16.8 40.1.066879.3.579.2.173 1984 Unknown [id number] 2.16.8 40.1.810500.3.579.2.173 1984 Unknown [id number] 2.16.8 40.1.655585.3.579.2.173 1984 Unknown [id number] 2.16.84 0.1.379151.3.579.2.593 1984 Unknown [id number] 2.16.84 0.1.809753.3.579.2.593 1984 Unknown [id number] 2.16.8 40.1.912387.3.579.2.727 1984 Unknown [id number] 2.16.8 40.1.872467.3.579.2.727 1984 Unknown [id number] 2.16.8 40.1.210355.3.579.2.727 1959 Unknown [id number] Unknown [id number] 2.16.8 40.1.849332.3.579.2.531 Social History Date Type Detail Facility Start: 06-10-2018 [facility] [place] History of tobacco use Cigarette Smoker [place] Start: 06-10-2018 Cigarettes smoked current (pack per day) - Reported [place] Start: 06-10-2018 Tobacco use and exposure Never used [place] Start: 06-10-2018 Alcohol intake 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 Medicines Take aqxk-xel-teclbkj and prescription medicines only as told by [...] provider. Document Revised: 09/27/2021 Document Reviewed: 09/27/2021 [employer] Patient Education 2023 [employer] 07/29/2024 21:43:40 Cellulitis, Adult, Pnvh-rp-Rxwe Cellulitis, Adult Cellulitis is a skin infection. [...] Follow these instructions at home: Medicines Take dcgv-ccz-bxlvuch and prescription medicines only as told by [...] provider. Document Revised: 09/20/2022 Document Reviewed: 09/20/2022 [employer] Patient Education 2023 [employer]. Follow Up Care 07/29/2024 19:21:34 With:Irma Morales Address: [place] [address]- Business (1) When:08/01/2024 21:22:04 Comments:Stop the Bactrim and stop applying Neosporin to the area. Start the doxycycline tomorrow twice a day and to complete the course. If symptoms worsen please return to the ED as I believe you would need IV antibiotics at that point. With:XXXX NONE Address: [place] When:Within 3 Day(s) [facility] Clinical Note 07-29-2024 Note Date & [...] these instructions at home: Medicines ??? Take yzvi-zww-madqwgp and prescription medicines only as told by [...] provider. Document Revised: 09/20/2022 Document Reviewed: 09/20/2022 [employer] Patient Education ? 2023 [employer]. Nephrology Peripheral Edema Peripheral edema is swelling [...] sit or sta (more content not included)... [facility] Evaluation + Plan note 07-29-2024 Note Date & Type Note Facility 07-29-2024 Evaluation + Plan note Extrac mauro from: Title:ED Note Author:Oralia Alishachad Hall Date :07/29/24 Cellulitis of leg (L03.119: Cellulitis of unspecified part of limb) Peripheral edema (R60.0: Localized edema) Orders: doxycycline, 100 mg = 1 tab(s), Oral, q12hr, X 10 day(s), # 20 tab(s), Refills(s) 0, Pharmacy: [facility]/pharmacy #[id number], 165, cm, 07/29/24 19:32:00 EDT, [...] Tube US Lower Extremity Venous Duplex Bilateral [facility] Hospital Discharge instructions 07-27-2024 Note Date [...] Follow these instructions at home: Medicines Take ddod-qrg-cafkhwq and prescription medicines only as told by [...] provider. Document Revised: 09/27/2021 Document Reviewed: 09/27/2021 [employer] Patient Education 2023 [employer]. 07/27/2024 00:18:00 Cellulitis, Adult Cellulitis, Adult Cellulitis [...] Follow these instructions at home: Medicines Take tumr-inc-idoauqk and prescription medicines only as told by [...] provider. Document Revised: 09/20/2022 Document Reviewed: 09/20/2022 [employer] Patient Education 2023 [employer]. Follow Up Care 07/26/2024 22:36:52 With:Ajith Link Address: [address] [address]- Business (1) When:07/29/2024 [facility] Clinical Note 07-27-2024 Note Date & [...] these instructions at home: Medicines ??? Take izgv-lhp-fzgfaax and prescription medicines only as told by [...] provider. Document Revised: 09/20/2022 Document Reviewed: 09/20/2022 [employer] Patient Education ? 2023 [employer]. Obstetrics and Gynecology Edema Edema is an abnormal buildup of fluids in the body tissues and under the skin. Swelling of the legs, feet, and ankles is a common symptom that becomes more likely as you get older. Swelling is also common in looser tissues, such as around the eyes. Pressing on the area may giancarlo (more content not included)... [facility] Evaluation + Plan note 07-26-2024 Note [...] EDT, STAT, Start date 07/26/24 23:28:00 EDT [facility] Clinical Note 10-15-2020 Note Date & [...] AJITH DE LA GARZA Date: 2020-10-15 00:07 [facility] course Narrative Note Date & Type Note Facility Hospital course Narrative No data available for this section [facility] Progress note Note Date & Type Note Facility Progress note No data available for this section [facility] Summary Purpose Family History No Family [...] FoundDocuments on File Type Date Recorded Patient Wood Technologist Expl anation ACP-Advance Directive ACP-Power of Instructional Supervisor Hospital Course Note MR#: [id number] [facility] Pt. Name: Morris Duran Admitted: 12/30/2018 Discharged: [...] use, chronic low back pain, admitted to [facility], who was transferred from [facility] secondary to low back pain for last 2 weeks. She had abdominal and pelvis CT done, it was unremarkable except left ovarian cyst. Psychiatry was consulted secondary to hallucinations. The patient was using IV methamphetamine due t (more content not included)... Additional Source Comments INFORMATION SOURCE (unrecogn ized section and content) DATE CREATED AUTHOR 06/27/2018 [facility] DATE CREATED AUTHOR AUTHOR'S ORGANIZ ATION 02/16/2019 [facility] DATE CREATED AUTHOR AUTHOR'S ORGANIZ ATION 09/04/2020 [facility] pital DATE CREATED AUTHOR AUTHOR'S ORGANIZ ATION 08/24/2021 [facility] DATE CREATED AUTHOR AUTHOR'S ORGANIZ ATION 07/31/2024 [place] [facility] DATE CREATED AUTHOR AUTHOR'S ORGANIZ ATION 08/01/2024 [facility] DATE CREATED AUTHOR AUTHOR'S ORGANIZ ATION 08/16/2024 [facility] FOR RECORDS PERTAINING TO [...] BE BASED ON THE PRIMARY CLINICAL RECORDS. [facility] [address] [facility]. provides no warranty or guarantee of the accuracy or completeness of information in this document.
== END 2024-10-17 15:39 | disposition home or self-care (01) ==
PROVIDERS: PCP Family Medicine; Visit Provider Family Medicine
DX: M16.11 Unilateral primary osteoarthritis, right hip (principal); M51.369 Other intervertebral disc degeneration, lumbar region without mention of lumbar back pain or lower extremity pain
CPT/HCPCS: 72110; 73502; 73562